=== PATIENT | male | born 1965 | race Caucasian/White ===

== ENCOUNTER 2020-12-19 18:38 | Emergency (ER) | payer BC ==
--- OUTSIDE RECORDS SUMMARY | 2020-12-19 18:59 | XMS REPORT | Continuity of Care Document ---
:[address] [facility] t Address [address] [place] [address] Care Team Providers Name Role Phone Lamont CRAWFORD Primary Care Physician Unavailable SYSTEM, NOT IN Attending Clinician Unavailable Eloy LAINEZ Attending Clinician Unavailable GREG Attending Clinician Unavailable Ilda JIMENEZ Attending Clinician Unavailable Ilda Jimenez MD Attending Clinician DIOGO SALDAÑA Attending Clinician Unavailable Diogo Vera Attending Clinician Peace VILLEGAS Attending Clinician PEACE Attending Clinician Unavailable ARTURO Attending Clinician Unavailable Arturo DPEllyn Attending Clinician MU-ISM Attending Clinician Unavailable Lamont CRAWFORD Attending Clinician Unavailable Lamont Crawford MD Attending Clinician JAYE Attending Clinician Unavailable Jaye TRAVEL PROFESSIONAL Attending Clinician Greg III, [place] Attending Clinician PATRICIA Attending Clinician Unavailable Patricia VILLEGAS Attending Clinician SHREYA Attending Clinician Unavailable Shreya VILLEGAS Attending Clinician Nichole PT Attending Clinician Daniel Mcdonald RN Attending Clinician Unavailable Chris ORR Attending Clinician Unavailable Sandra VILLEGAS Attending Clinician Jerri ORR Attending Clinician Unavailable Eloy Fam Attending Clinician Eloy MURPHY Attending Clinician Unavailable Ignacia ORR R Attending Clinician Unavailable HOYT, A Attending Clinician Unavailable Saritha TRAVEL PROFESSIONAL, A Attending Clinician Freeman VILLEGAS Chi Attending Clinician Oswaldo RN, L Attending Clinician Unavailable Emil RN Attending Clinician Hernandez VILLEGAS Attending Clinician HERNANDEZ Attending Clinician Unavailable Nitin VILLEGAS Attending Clinician Sascha EATON Attending Clinician Ladarius RN, N Attending Clinician Unavailable Ladarius RN Attending Clinician Unavailable Dede PAEZ Attending Clinician Yolette Attending Clinician Unavailable Redd VILLEGAS, J Attending Clinician Allen ORR Attending Clinician Unavailable Jl ORR Attending Clinician Unavailable Amanda ORR, A Attending Clinician Unavailable Ishmael VILLEGAS, A Attending Clinician Artie BRADLEY Attending Clinician Anupam OMALLEY Attending Clinician Unavailable Kuldeep Attending Clinician KULDEEP Attending Clinician Unavailable Eloy Burton Attending Clinician Micheal Attending Clinician Unavailable Bakari Attending Clinician Unavailable Kandi Villegas Attending Clinician Mitch Smith Attending Clinician Pelon Attending Clinician Greg VARGAS, [place] Admitting Clinician HERNANDEZ Admitting Clinician Unavailable Juan Antonio Admitting Clinician Payers Payer Name Policy Type Policy Number Effective Date Expiration Date Luba hernandes BCBS PPO POS OUT [id number] 2013 OF STATE GENERIC 00:00:00 Problems Condition Condition Condition Status Onset Resolution Last Treating Co mments Source Name Details Category Date Date Treatment Clinician Date C79.51 - Diagnosis Active 2020-11-03 M emoria SECONDARY 2-24 01:43:00 l MALIGNANT C79.51 - 00:01: Her sullivan NEOPLASM O SECONDARY 00 MALIGNANT NEOPLASM O Active 10/20/2020 [facility] Diagnosis Active 2020-10-19 M emoria POSTOPERAT 2 10:47:00 l CHRISTAL WOUND DRAINING 00:00: Her sullivan RIGHT HIP POSTOPERAT 00 CHRISTAL WOUND RIGHT HIP Active 10/07/2020 [facility] RT HIP Diagnosis Active 2020-09-27 Mem oria WOUND 1-15 21:57:00 l INFECTION RT HIP 00:00: Lelia nn WOUND 00 INFECTION Active 09/10/2020 [facility] nursing home nursing home Disease Active 2019-08 (current) (current) 0- Griffin rso use of use of 00:00: n antithromb antithromb 00 otics/anti otics/anti platelets platelets 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[facility] neoplasm neoplasm 00:00: n of bone of bone 00 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[place] rso neoplasm neoplasm 00:00: n of of 00 gastrointe gastrointe stinal stinal tract tract Hematochez Hematochez Disease Active Overview : ia ia 01-27 Added Anderso 00:00: automatic n 00 ally from request for surgery [id number] Other Other Disease Active 2018-08 secondary secondary 2-20 [facility] hypertensi hypertensi 00:00: n on on 00 Type 2 Type 2 Disease Active 2018-08 diabetes diabetes 2-20 Gerhard o mellitus mellitus 00:00: n without without 00 complicati complicati on on DRAINING Diagnosis Active 2018-082020-09-10 M emoria POST OP 0 15:46:00 l WOUND DRAINING 00:00: Khang n RIGHT POST OP 00 THIGH WOUND RIGHT THIGH Active 05/27/2019 [facility] Infection Infection Disease Active following following 02-25 [facility] a a 00:00: n procedure, procedure, 00 superficia superficia l l incisional incisional surgical surgical site site Malignant Malignant Disease Active neoplasm neoplasm 02-24 Gerhard o of left of left 00:00: n kidney, kidney, 00 except except renal renal pelvis pelvis Renal cell Renal cell Disease Active M D carcinoma carcinoma 02-19 [facility] rso 00:00: n 00 DRAINING Diagnosis Active 2019-01-10 M emoria POSTOP 5-06 22:15:00 l WOUND DRAINING 00:00: Khang n RIGHT POSTOP 00 THIGH WOUND RIGHT THIGH Active 12/30/2018 [facility] RIGHT Diagnosis Active 2018-12-26 Mem oria THIGH 4-16 22:30:00 l DRAINING RIGHT 00:00: Alexi POST OP THIGH 00 WOUND DRAINING POST OP WOUND Active 12/10/2018 [facility] PATHOLOGIC Diagnosis Active 2018-10-24 Memoria FRACTURE 1- 17:47:00 l NON UNION 00:00: Alexi RIGHT FEMU PATHOLOGIC 00 FRACTURE NON UNION RIGHT FEMU Active 09/26/2018 [facility] Alexi FOLLOW UP Diagnosis Active 2018-12-31 Memoria 1- 13:25:00 l FOLLOW 00:00: Alexi UP 00 Active 9 [facility] LABS FU Diagnosis Active 2018-10-22 Me moria 1-11 09:09:00 l LABS FU 00:00: Alexi 00 Active 09/06/2018 [facility] F/U Diagnosis Active 2017-082018-07-31 Mem oria 2-04 12:02:00 l F/U 00:00: Alexi 00 Active 07/30/2018 [facility] LABS AND Diagnosis Active 2018-07-31 M emoria FOLLOW UP 05-14 10:12:00 l LABS AND 00:00: Khang n FOLLOW UP 00 Active 05/14/2018 [facility] LAB- FU Diagnosis Active 2018-05-14 Me moria 9-06 12:24:00 l LAB- FU 00:00: [place] 00 Active 05/02/2018 [facility] LAB-FU Diagnosis Active 2018-05-14 Mem oria 7-11 09:36:00 l LAB-FU 00:00: Alexi 00 Active 03/06/2018 [facility] CONSULT Diagnosis Active 2017-12-10 Me moria 3-16 14:22:00 l CONSULT 00:00: Alexi 00 Active 11/09/2017 [facility] RENAL CELL Diagnosis Active 2017-12-14 Memoria 3-06 15:17:00 l RENAL 00:00: Alexi CELL 00 Active 10/30/2017 [facility] PATHOLOGIC Diagnosis Active 2017-10-19 Memoria FEMUR FX - 18:32:00 l RIGHT LEG 00:00: [place] PATHOLOGIC 00 FEMUR FX RIGHT LEG Active 10/19/2017 [facility] FEMUR Diagnosis Active 2017-11-13 Mem oria FRACTURE 10-19 10:36:00 l FEMUR 00:00: [place] FRACTURE 00 Active 10/19/2017 [facility] Coronary Coronary Disease Active arterioscl arterioscl 2-19 An derso erosis erosis 00:00: n 00 Acute deep Acute deep Disease Active [place] vein vein 2-19 [facility] thrombosis thrombosis 00:00: st (DVT) of (DVT) of 00 right right lower lower extremity extremity Type 2 Type 2 Disease Active [facility] diabetes diabetes 2-19 Method i mellitus mellitus 00:00: st 00 Essential Essential Disease Active Josefa st[facility] 00 Class 3 Class 3 Disease Active [facility] obesity in [facility] 2-[facility] 00 Hyperlipid Hyperlipid Disease Active [place] emia emia 2-19 Methodi 00:00: st 00 Metabolic Metabolic Disease Active Josefa ston syndrome syndrome 2-19 Method i 00:00: st 00 Hypertensi Hypertensi Disease Active H alexandre ve urgency ve urgency 2-19 Me thodi 00:00: st 00 Acute DVT Acute DVT Disease Active Josefa ston (deep (deep 2-19 [facility] venous venous 00:00: st thrombosis thrombosis 00 ) ) Abnormal Abnormal Disease Active 2015-08 [place] ambulatory ambulatory 09-24 [facility] electrocar electrocar 00:00: st diogram diogram 00 Paresthesi Problem Active 2018-11-28 M emoria a of lower 12:24:48 l extremity Alexi (finding) Paresthesi a of lower extremity (finding) Active Problem 11/28/2018 [facility], [facility], KENJI Truong,[place] [facility] Snoring Problem Active 2018-11-28 Shravan schneider (finding) 12:24:48 l Snoring Alexi (finding) Active Problem 11/28/2018 [facility], [facility],Shravan rial [place] [facility] Swelling Problem Active 2018-11-28 Mem oria of lower 12:24:48 l limb Swelling Khang n (finding) of lower limb (finding) Active Problem 11/28/2018 right leg consistant ly [facility], [facility], KENJI Truong,[facility] Oncology [facility] Taste Problem Active 2018-11-28 Memor ia sense 12:24:48 l altered Taste Gilbert (finding) sense altered (finding) Active Problem 11/28/2018 [facility], [facility], KENJI Truong,[facility] Oncology [facility] Chronic Problem Active 2020-11-05 Shravan jennie kidney 01:27:46 l disease Chronic Khang n stage 2 kidney (disorder) disease stage 2 (disorder) Active Problem 11/05/2020 [facility], [facility],[id number], KENJI Truong, [facility] Diabetes Problem Active 2020-11-05 [facility] oria mellitus 01:27:46 l (disorder) Diabetes He rmann mellitus (disorder) Active Problem 11/05/2020 [facility], [facility],[id number], KENJI Truong,[facility] Oncology [facility] Diabetic Problem Active 2020-11-05 [facility] oria foot ulcer 01:27:46 l (disorder) Diabetic He rmann foot ulcer (disorder) Active Problem 11/05/2020 Left big toe [facility],[id number] Foot pain Problem Active 2020-11-05 [place] (finding) 01:27:46 l Foot Alexi pain (finding) Active Problem 11/05/2020 [facility],[id number] Hypertensi Problem Active 2020-11-05 emoria ve 01:27:46 l disorder, Gilbert systemic Hypertensi arterial ve (disorder) disorder, systemic arterial (disorder) Active Problem 11/05/2020 [facility],[id number], KENJI Truong, KENJI Rodriguez, [facility] Hypothyroi Problem Active 2020-11-05 M emoria dism 01:27:46 l (disorder) Khang n Hypothyroi dism (disorder) Active Problem 11/05/2020 [facility],[id number], KENJI Truong, KENJI Rodriguez, [facility] Past Problem Active 2020-11-05 Memor ia history of 01:27:46 l procedure Past Alexi (context-d history of ependent procedure category) (context-d ependent category) Active Problem 11/05/2020 Placed 12-13-18. [facility],[id number], KENJI Truong, KENJI Rodriguez Wound Problem Active 2020-11-05 Memor ia discharge 01:27:46 l (finding) Wound Khang n discharge (finding) Active Problem 11/05/2020 Right hip-wound vac in place [facility],[id number], KENJI Truong, KENJI Rodriguez UNSP Diagnosis Active 2017-11-13 Mem oria FRACTURE 10:36:00 l OF UNSP UNSP [place] FEMUR, FRACTURE INIT OF UNSP ENCNTR FEMUR, INIT ENCNTR Active [facility] ILLNESS, Diagnosis Active 2020-09-27 M emoria UNSPECIFIE 21:57:00 l D ILLNESS, Khang n UNSPECIFIE D Active [facility] Other Problem 2019-04-03 Memor ia nonspecifi 11:19:09 l c abnormal Other Lelia nn finding of nonspecifi lung field c abnormal finding of lung field 04/03/2019 KENJI Truong, KENJI Rodriguez Acquired Problem 2019-04-03 Mem oria absence of 11:19:09 l kidney Acquired Khang n absence of kidney 04/03/2019 [facility], OPID [place], OPID [place] Malignant Problem 2018-12-30 [place] neoplasm 11:25:56 l of Alexi unspecifie Malignant d part of neoplasm unspecifie of d bronchus unspecifie or lung d part of unspecifie d bronchus or lung 12/30/2018 [facility] Type 2 Problem 2019-02-11 Memor ia diabetes 11:03:39 l mellitus Type 2 Khang n without diabetes complicati mellitus ons without complicati ons 02/11/2019 [facility] Essential Problem 2019-03-19 Me moria (primary) 11:05:01 l hypertensi Khang n on Essential (primary) hypertensi on 03/19/2019 [facility] Atheroscle Problem 2019-03-19 M emoria rotic 11:05:01 l heart Alexi disease of Atheroscle [place]ross rotic coronary heart artery disease of without [place] angina coronary pectoris artery without angina pectoris 03/19/2019 [facility], [facility] [place] Pure Problem 2019-02-11 Memor ia hyperchole 11:03:39 l sterolemia Pure Khang n , hyperchole unspecifie sterolemia d , unspecifie d 02/11/2019 [facility] Presence Problem 2019-02-11 Mem oria of 11:03:39 l coronary Presence Herm deysi angioplast of y implant coronary and graft angioplast y implant and graft 02/11/2019 [facility] nursing home Problem 2018-10-28 [place] mor[place] (current) 12:35:51 l use of Long Alexi aspirin term (current) use of aspirin 10/28/2018 [facility] termite helper Problem 2019-02-11 [place] mor[place] (current) 11:03:39 l use of Long [place] oral term hypoglycem (current) ic drugs use of oral hypoglycem ic drugs 02/11/2019 [facility] Other long Problem 2018-10-28 M emoria term 12:35:51 l (current) Other Khang n drug terminal block assembler therapy (current) drug therapy 10/28/2018 [facility] Acute Problem 2018-02-02 Memor ia posthemorr 11:25:45 l hagic Acute Gilbert anemia posthemorr hagic anemia 02/02/2018 [facility] Type 2 Problem 2018-02-02 Memor ia diabetes 11:25:45 l mellitus Type 2 Khang n with diabetes diabetic mellitus neuropathy with , diabetic unspecifie neuropathy d , unspecifie d 02/02/2018 [facility] Body mass Problem 2018-02-02 [place] index 11:25:45 l (BMI) Body Alexi 40.0-44.9, mass index adult (BMI) 40.0-44.9, adult 02/02/2018 [facility] Morbid Problem 2018-02-02 Memor ia (severe) 11:25:45 l obesity Morbid Alexi due to (severe) excess obesity calories due to excess calories 02/02/2018 [facility] Atelectasi Problem 2019-01-09 M emoria s 11:59:37 l Alexi Atelectasi s 01/09/2019 [facility]i Secondary Problem 2019-03-19 [place] malignant 11:05:01 l neoplasm Gilbert of Secondary unspecifie malignant d site neoplasm of unspecifie d site 03/19/2019 [facility] Hypothyroi Problem 2019-03-19 M emoria dism, 11:05:01 l unspecifie Khang n d Hypothyroi dism, unspecifie d 03/19/2019 [facility] Hypomagnes Problem 2019-03-19 M emoria emia 11:05:01 l Alexi Hypomagnes emia 9 [facility] Diarrhea, Problem 2019-03-19 Me moria unspecifie 11:05:01 l d [place] Diarrhea, unspecifie d 03/19/2019 [facility] Rash and Problem 2019-03-19 Mem oria other 11:05:01 l nonspecifi Rash and He rmann c skin other eruption nonspecifi c skin eruption 03/19/2019 [facility] Shortness Problem 2019-02-11 [place] of breath 11:03:39 l Alexi Shortness of breath 02/11/2019 [facility] Other Problem 2019-02-11 Memor ia specified 11:03:39 l soft Other Gilbert tissue specified disorders soft tissue disorders 02/11/2019 [facility] Weakness Problem 2019-02-11 Mem oria 11:03:39 l Weakness Khang n 02/11/2019 [facility] Illness, Problem 2020-09-18 Mem oria unspecifie 22:40:07 l d Illness, Khang n unspecifie d 09/18/2020 [facility] Hyperchole Problem Resolve 2018-11-28 Memoria sterolemia d 12:24:48 l (disorder) Khang n Hyperchole sterolemia (disorder) Resolved Problem 11/28/2018 [facility], [facility], KENJI Truong,[facility] Oncology [facility] 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 Required revision of femur clarita with cementatio n 09/2018. [facility], [facility],[id number], KENJI Truong, KENJI Rodriguez Asthenia Problem Active 2018-11-28 Mem oria (finding) 12:24:48 l Asthenia Khang n (finding) Active Problem 11/28/2018 [facility], [facility], KENJI Truong,[facility] Oncology [facility] Disorder Problem Active 2018-11-28 Mem oria of hair 12:24:48 l (disorder) Disorder He rmann of hair (disorder) Active Problem 11/28/2018 Pt states his hair color has changes to snow white [facility], [facility], KENJI Truong,[facility] Oncology [facility] Disease of Problem Active 2018-11-28 M emoria skin 12:24:48 l (disorder) Disease Her sullivan of skin (disorder) Active Problem 11/28/2018 Pt states he has light patches in skin [facility], [facility], KENJI Truong,[place] [facility]i Oncology [facility] Dyspnea Problem Active 2018-11-28 Shravan jennie (finding) 12:24:48 l Dyspnea Gilbert (finding) Active Problem 11/28/2018 Pt states with bending over [facility], [facility], KENJI Truong,[place] morial [facility] Fatigue Problem Active 2018-11-28 Shravan jennie (finding) 12:24:48 l Fatigue Gilbert (finding) Active Problem 11/28/2018 [facility], [facility], KENJI Truong,[place] morial Alexi Oncology [facility] Itching Problem Active 2018-11-28 Shravan jennie (finding) 12:24:48 l Itching Alexi (finding) Active Problem 11/28/2018 [facility], [facility], KENJI Truong,[place] morial Alexi Oncology [facility] Observatio Problem Active 2018-11-28 M emoria n of 12:24:48 l sensation Alexi (finding) Observatio n of sensation (finding) Active Problem 11/28/2018 [facility], [facility], KENJI Truong,W[place] moriwv [place] [facility] Osteoarthr Problem Active 2018-11-28 M emoria itis 12:24:48 l (disorder) Khang n Osteoarthr itis (disorder) Active Problem 11/28/2018 [facility], [facility],Shravan rial Alexi Oncology [facility] Pain in Problem Active 2018-11-28 Shravan jennie lower limb 12:24:48 l (finding) Pain in Herm deysi lower limb (finding) Active Problem 11/28/2018 [facility], [facility], KENJI Truong,[place] morial [place] [facility] Paresthesi Problem Active 2018-11-28 M emoria a of hand 12:24:48 l (finding) Alexi Paresthesi a of hand (finding) Active Problem 11/28/2018 [facility], KENJI Truong,[place] morial Alexi Oncology [facility] Pathologic Pathologic Problem Active U nivers al al ity of fracture fracture [place] of right of right Physic i femur due femur due ans to to neoplastic neoplastic disease, disease, initial initial encounter encounter Pathologic Pathologic Problem Active U nivers al al ity of fracture fracture [place] of right of right Physic i femur due femur due ans to to neoplastic neoplastic disease disease with with routine routine healing, healing, subsequent subsequent encounter encounter Postop Postop Problem Active [facility] check check ity of [place] Physici ans Metastatic Metastatic Problem Active U nivers renal cell renal cell it y of carcinoma carcinoma [place] to bone to bone Physici ans Pathol Pathol Problem Active [facility] fracture fracture ity of of right of right [place] femur in femur in Physic i neoplastic neoplastic an s disease disease with with nonunion nonunion Cellulitis Cellulitis Problem Active U nivers of of ity of drainage drainage [place] site, site, Physici post-opera post-opera an s tive tive Draining Draining Problem Active Unive rs postoperat postoperat it y of christal wound[place] initial initial Physici encounter encounter ans Draining Draining Problem Active Unive rs postoperat postoperat it y of christal wound[place] subsequent subsequent Ph ysici encounter encounter ans History of Past Illness Condition Condition Condition Status Onset Resolution Last Treating Co mments Source Name Details Category Date Date Treatment Clinician Date Malignant Problem 2019-04-03 2019-04-03 Memoria neoplasm 09-18 11:19:09 11:19:09 l of 05:53: Alexi unspecifie Malignant 28 d kidney, neoplasm except of renal unspecifie pelvis d kidney, except renal pelvis 09/18/2018 04/03/2019 [facility], KENJI Truong, KENJI Rodriguez Malignant Problem 2017-2019-02-11 2019-02-11 Memoria neoplasm 2- 11:03:39 11:03:39 l of left 04:40: Alexi kidney, Malignant 46 except neoplasm renal of left pelvis kidney, except renal pelvis 07/27/2018 02/11/2019 [facility] Personal Problem 2017-2019-01-09 2019-01-09 Memoria history of 08-28 11:59:37 11:59:37 l other Personal 04:45: Khang n malignant history of 18 neoplasm other of kidney malignant neoplasm of kidney 06/28/2018 01/09/2019 [facility], KENJI Truong Allergies, Adverse Reactions, Alerts Allergy Allergy Status Severity Reaction(s) Onset Inactive Treating Comm ents Source Name Type Date Date Clinician Codeine Propensi Active Other (See 2015-08 Passing Ho nereida ty to Comments) 08 out Methodi adverse 00:00: st reaction 00 s to drug codeine codeine Active Memoria sulfate sulfate l Alexi Plastic Plastic Active Memoria Tape Tape l Alexi NKFA NKFA Active Memoria l [place] Codeine Allergy Active Univers Derivati to drug ity of ves (finding [place] ) Physici ans Family History Family Member Diagnosis Comments Start Date Stop Date Source Natural father Diabetes MD Mali lowe Natural father Hyperlipidemia And laina Natural father Hypertension Jose L son Maternal grandfather Lung cancer MD To Natural mother Diabetes MD [place] low[place] Natural mother Heart disease [place] Paternal grandmother Colon cancer MD To Social History Social Habit Start Date Stop Date Quantity Comments Source History [facility] MD To Alcohol Std Drinks History SDMD MD To Alcohol Binge Sex Assigned At MD [place] on Exposure to Not sure MD To SARS-CoV-2 (event) Tobacco use and 2020-11-24 2020-11-24 Never used MD [place] on exposure 00:00:00 00:00:00 Alcohol intake 2020-11-24 2020-11-24 Lifetime MD Mali lowe 00:00:00 00:00:00 non-drinker (finding) Social History 2020-10-08 2020-10-08 [facility] reyes 15:04:25 15:04:25 History SDOH 2019-02-24 2019-02-24 1 MD To Alcohol Frequency 00:00:00 00:00:00 Smoking Status Start Date Stop Date Source Never smoker MD To Medications Ordered Filled Start Stop Current Ordering Indication Dosage Frequency Signature Comments Components Source Medication Medication Date Date Medication? Clinician (SIG) Name Name ezetimibe Yes 10mg Take 10 mg MD (ZETIA) 10 4-12 by mouth Jose L so mg tablet 20:49: at n 26 bedtime. aspirin 81 Yes 81mg Take 81 mg M D mg EC 4-12 by mouth Anderso tablet 20:49: daily. n 26 cholecalcif Yes 2000U Take 2,000 MD trever, 4-12 Units by Anderso vitamin D3, 20:49: mouth n 2,000 unit 26 twice capsule daily. Bacillus Yes 1{capsu Take 1 MD coagulans 4-12 le} capsule by Griffin fisher (PROBIOTIC, 20:49: mouth n B. 26 daily. COAGULANS,) 10 billion cell cpDR multivit-mi Yes 1{tbl} Take 1 MD ns/iron/fol 4-12 tablet by And erso ic/lycop 20:49: mouth n (CENTRUM 26 daily. MEN ORAL) vit A/vit Yes Take by C/vit 4-12 mouth. Anderso E/zinc/belinda 20:49: n er 26 (PRESERVISI ON AREDS ORAL) ascorbic Yes 1000mg Take 1,000 M D acid, 4-12 mg by Anderso vitamin C, 20:49: mouth n (vitamin C) 26 daily. 1000 mg tablet flash Yes Latrice VILLEGAS glucose 4-12 Veronica 14 Anderso sensor 20:49: Day Sensor n (FreeStyle 26 kit Veronica 14 Day Sensor) kit mirabegron Yes Myrbetriq (Myrbetriq) 4-12 50 mg Anderso 50 mg Tb24 20:49: tablet,ext n 26 ended release meropenem Yes Infuse MD (MERREM 4-12 intravenou Gerhard o INTRAVENOUS 20:49: sly. 3 x n ) 26 daily for at least another month heparin Yes Infuse MD sod,porcine 4-12 intravenou An derso /0.9 % NaCl 20:49: sly. n (HEPARIN 26 FLUSH INTRAVENOUS ) HYDROcodone HYDROcodone Yes VICTORIANO TAKE 1 [facility] -Acetaminop -Acetaminop 4-12 GREG TABLET ity of hen 5-325 hen 5-325 00:00: M.D. EVERY 4 TO [place] MG Oral MG Oral 00 6 HOURS Phy sici Tablet Tablet NEEDED FOR ans PAIN. ondansetron Yes Malignant 8mg Take 1 MD (Zofran) 8 3-18 neoplasm of tablet (8 Anderso mg tablet 00:00: left mg) by n 00 kidney, mouth except every 8 renal (eight) pelvis hours as needed for nausea or vomiting. Aspirin 81 No Notes: Do Me moria MG Enteric 2-24 not crush l Coated 15:00: or chew. Gilbert Tablet 00 (Same As: Ecotrin) Plavix No Notes: Memoria 2-24 (Same As: l 15:00: Plavix) Alexi 00 Vitamin D3 No Notes: Memor ia 2000 intl 2-24 Same as : l units oral 15:00: Vitamin D3 H ermann tablet 00 Cartia XT No 300 mg, 1 Mem oria 2-24 cap, l 15:00: Route: PO, Alexi 00 Drug form: ERCAP, Daily, Dosing Weight 134.545, kg, Start date: 10/20/20 9:00:00 SALOONKEEPER, Duration: 30 day, Stop date: 11/18/20 9:00:00 CDT Thyroxine No Notes: Memori a 2-24 Take 1 l 12:30: hour before or 2 hours after meal; Enteral feeds may interefere with the absorption of this medication . (Same as:Levothr oid) carvedilol No 50 mg, 2 Mem oria 2-24 tab, l 03:00: Route: PO, Drug form: TAB, Q12H, Dosing Weight 134.545, kg, Start date: 10/19/20 21:00:00 SALOONKEEPER, Duration: 30 day, Stop date: 11/18/20 9:00:00 CDT insulin, No 15 unit, Memor ia isophane 2-24 Route: l 03:00: SUB-Q, Q12H, Dosing Weight 134.545, kg, Start date: 10/19/20 21:00:00 SALOONKEEPER, Duration: 30 day, Stop date: 11/18/20 9:00:00 CDT Vitamin C No Notes: Memori a 2-23 (Same as: l 23:00: Vitamin C) Acetaminoph Yes 1 tab, PO, Memoria en 325 MG / 2-23 Q6H, PRN l Hydrocodone 21:42: for pain, H ermann Bitartrate 00 X 6 day, # 10 MG Oral 24 tab, 0 Tablet Refill(s), [[place] called to ] pharmacy ondansetron No Route: IV, Memoria (ANES) 2-23 Drug form: l 20:43: INJ, ONCE, Stop date: 10/19/20 14:43:00 SALOONKEEPER dexamethaso No Route: IV, Memoria ne (ANES) 2-23 Drug form: l 20:43: INJ, ONCE, Stop date: 10/19/20 14:43:00 SALOONKEEPER lidocaine 0 No Route: IV, Me moria (ANES) 2-23 Drug form: l 20:28: INJ, ONCE, Stop date: 10/19/20 14:28:00 SALOONKEEPER propofol 0 No Route: IV, Mem oria (ANES) 2-23 Drug form: l 20:28: INJ, ONCE, Stop date: 10/19/20 14:28:00 SALOONKEEPER succinylcho No Route: IV, Memoria line (ANES) 2- Drug form: l 20:28: INJ, ONCE, Stop date: 10/19/20 14:28:00 SALOONKEEPER midazolam No Route: IV, Me moria (ANES) 2-23 Drug form: l 20:28: SOLN, ONCE, Stop date: 10/19/20 14:28:00 SALOONKEEPER fentaNYL No Route: IV, Mem oria (ANES) 2-23 Drug form: l 20:28: INJ, ONCE, Stop date: 10/19/20 14:28:00 SALOONKEEPER ceFAZolin No Route: IV, Me moria (ANES) 1000 2- Drug form: l mg 19:43: INJ, Start date: 10/19/20 13:43:00 SALOONKEEPER, Stop date: 10/19/20 14:43:00 SALOONKEEPER Lactated No Route: IV, Mem oria Ringers 2-23 Total l Injection 19:29: Volume: Lelia nn IV (ANES) 00 1,000, 1000 mL Start date: 10/19/20 13:29:00 SALOONKEEPER, Stop date: 10/19/20 14:29:00 SALOONKEEPER Insulin 0 No Notes: Memoria regular 2-23 (Same as: l 18:13: Humulin R, Gilbert 00 NovoLIN R) Roll in palms of hands gently; Do not shake vigorously . WASTE: F/P - Black; E - Municipal Trash Bin Stable for 31 days at room temperatur e Expires in days from ____Date Labetalol No 10 mg, 2 Shravan jennie 2-23 mL, Route: l 14:27: IVP, Drug Alexi form: INJ, Q5Min, Dosing Weight 134.545, kg, PRN Elevated BP, Start date: 10/19/20 8:27:00 SALOONKEEPER, Duration: 5 doses or times, Stop date: Limited # of times, 0 Ketorolac Yes 4 days Memor ia 2-23 l 14:27: MEDICATION Gilbert WASTE Product Size: 30 mg Product Wasted: ___ mg Acetaminoph No Notes: Max Memoria en 2-23 acetaminop l 14:27: hen 4000 Alexi 00 mg/day (4 gm/day). (Same as: Tylenol Extra Strength) Oxycodone No Notes: Memori a Hydrochlori 2-23 (Same as: l de 5 MG 14:27: Roxicodone Herm deysi Oral Tablet ) Morphine No Notes: Memoria 2-23 (Same l 14:27: as:MORPhin Gilbert 00 e Sulfate) Hydromorpho No Notes: Shravan jennie ne 2-23 Same as l 14:27: Dilaudid Gilbert Flumazenil No Notes: Memor ia 2-23 (Same as: l 14:27: Romazicon) Alexi Naloxone No Notes: Memoria 2-23 Same as l 14:27: Narcan Gilbert Ondansetron No Notes: Shravan jennie 2-23 (Same as: l 14:27: Zofran) Gilbert MEDICATION WASTE Product Size: 4 mg Product Wasted: ___ mg Promethazin No Notes: Do M emoria e 2-23 not give l 14:27: IV push. Alexi 00 (Same as: Phenergan) Methocarbam No Notes: Shravan jennie ol 2-23 (Same l 14:27: as:Robaxin ) Insulin No Notes: Memoria Lispro 2-23 (Same as: l 14:27: Humalog) Roll in palms of hands gently; Do not shake vigorously . WASTE: F/P - Black; E - Municipal Trash Bin Stable for 28 days at room temperatur e. Expires in days from ____Date Acetaminoph No Notes: Max Memoria en 2-22 acetaminop l 20:47: hen 4000 00 mg/day (4 gm/day). (Same as: Tylenol Extra Strength) pregabalin No Notes: Memor ia 2-22 Same as l 20:47: Lyrica Famotidine No Notes: Memor ia 2-22 (Same as: l 20:47: Pepcid) HYDROcodone Yes Take by -acetaminop 2-22 mouth as Griffin rso hen (NORCO) 00:00: needed. n 5 mg-325 mg 00 per tablet HYDROcodone HYDROcodone Yes VICTORIANO Q6H TAKE 1 TO [facility] -Acetaminop -Acetaminop 2-22 GREG 2 TABLETS ity of hen 5-325 hen 5-325 00:00: M.D. EVERY 6 [place] MG Oral MG Oral 00 HOURS Physi ci Tablet Tablet NEEDED. ans Cefazolin No Notes: Memori a 2-16 (Same As: l 19:00: Ancef, Alexi 00 Kefzol) MEDICATION WASTE Product Size: 1000 mg Product Wasted: ___ mg methenam/so 2020- No Take by MD quintana 2-04 02-04 mouth 3 Anderso phos/mblue/ 17:28: 00:00 (three) n hyoscy 33 :00 times a (UROGESIC-B day. 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 meropenem + No Notes: Shravan jennie Sodium -21 (Same as: l Chloride 15:30: Merrem) . Herm deysi 0.9% IV 100 00 mL meropenem No Notes: Memori a - (Same as: l 14:44: Merrem) . Alexi 00 Santyl No Notes: Memoria 1-20 (Same As: l 21:00: Santyl) Saline No Notes: Memoria Flush 0.9% 09-14 Same as: l 22:00: BD Posiflush Sterile Lidocaine No Notes: Memori a Hydrochlori 09-14 Preservati l de 10 MG/ML 20:00: ve free. He rmann Injectable (Same as: Solution Xylocaine MPF) Hydromorpho No 0.5 mg, Mem oria ne 09-14 Route: l 19:59: IVP, ONCE, Dosing Weight 87.727, kg, PRN Pain Score 7-10, Priority: NOW, Start date: 09/14/20 13:59:00 SALOONKEEPER ondansetron No Route: IV, Memoria (ANES) 09-14 Drug form: l 19:43: INJ, ONCE, Stop date: 09/14/20 13:43:00 SALOONKEEPER Saline No Notes: Memoria Flush 0.9% 09-14 Same as: l 19:15: BD Posiflush Sterile succinylcho No Route: IV, Memoria line (ANES) 09-14 Drug form: l 19:04: INJ, ONCE, Stop date: 09/14/20 13:04:00 SALOONKEEPER midazolam No Route: IV, Me moria (ANES) 09-14 Drug form: l 19:04: SOLN, 00 ONCE, Stop date: 09/14/20 13:04:00 SALOONKEEPER fentaNYL No Route: IV, Mem oria (ANES) 09-14 Drug form: l 19:04: INJ, ONCE, Alexi 00 Stop date: 09/14/20 13:04:00 SALOONKEEPER lidocaine No Route: IV, Me moria (ANES) 09-14 Drug form: l 19:04: INJ, ONCE, Gilbert 00 Stop date: 09/14/20 13:04:00 SALOONKEEPER propofol No Route: IV, Mem oria (ANES) 09-14 Drug form: l 19:04: INJ, ONCE, Gilbert 00 Stop date: 09/14/20 13:04:00 SALOONKEEPER Lactated No Route: IV, Mem oria Ringers 09-14 Total l Injection 18:23: Volume: Lelia nn IV (ANES) 00 1,000, 1000 mL Start date: 09/14/20 12:23:00 SALOONKEEPER, Stop date: 09/14/20 13:23:00 SALOONKEEPER Acetaminoph No Notes: Max Memoria en 09-14 acetaminop l 03:19: hen 4000 Gilbert 00 mg/day (4 gm/day). (Same as: Tylenol Extra Strength) celecoxib No Notes: Memori a 09-14 NSAID. l 03:19: Please Alexi 00 check indication . Not for seizure. (Same As: CeleBREX) pregabalin No Notes: Memor ia 09-14 (Same as: l 03:19: Lyrica) Alexi 00 Oxycodone No Notes: Do Mem oria 09-14 not crush l 03:19: or chew. Gilbert 00 (Same as: OxyContin) cefepime + No Notes: Memor ia Sodium 09-13 (Same As: l Chloride 17:30: Maxipime) Herm deysi 0.9% IV 100 00 mL MEDICATION WASTE Product Size: 1000 mg Product Wasted: ___ mg Aspirin 325 No Notes: Shravan jennie MG Oral 18 Take with l Tablet 15:00: food. Gilbert 00 normal No 500 mL, Memoria saline 0.9% 18 Rate: 10 l IV 500 mL 01:08: ml/hr, Khang n 00 Infuse over: 50 hr, Route: IV, Dosing Weight 87.727 kg, Total Volume: 500, Start date: 09/12/20 19:08:00 SALOONKEEPER, Duration: 30 day, Stop date: 10/12/20 19:07:00 SALOONKEEPER, 2.11, m2, 0 Humulin-R U 2021-0 No Humulin-R M emoria 500 1-17 U 500, 15 l 18:04: units, Alexi 00 Route: SUB-Q, ONCE, 09/12/20 12:04:00 SALOONKEEPER, Stop date: 09/12/20 12:04:00 SALOONKEEPER, 0 vancomycin 2020-0 No 2000 mg: Me moria + Sodium 1-17 infuse l Chloride 15:00: over 2.5 Lelia nn 0.9% IV 250 00 hours For mL adult patients only: Round to nearest 250 mg per Medical Staff approval MEDICATION WASTE Product Size: 1000 mg Product Wasted: ___ mg Vancomycin 2020-0 No 2000 mg: Me moria 1-17 infuse l 14:00: over 2.5 Gilbert 00 hours For adult patients only: Round to nearest 250 mg per Medical Staff approval MEDICATION WASTE Product Size: 1000 mg Product Wasted: ___ mg Tenex 2020-0 No 2 mg, 1 Memoria 1-16 tab, l 23:00: Route: PO, Alexi 00 Drug form: TAB, BID, Dosing Weight 87.727, kg, Start date: 09/11/20 17:00:00 SALOONKEEPER, Duration: 30 day, Stop date: 10/11/20 9:00:00 SALOONKEEPER GUANFACINE 2020-0 No GUANFACINE M emoria 2 MG ORAL 1-16 2 MG ORAL l TABLET 23:00: TABLET, 2 Khang n 00 mg, Drug form: MISC, Route: PO, BID, 09/11/20 17:00:00 SALOONKEEPER, Duration: 30 day, Stop date: 10/11/20 9:00:00 SALOONKEEPER, 0 Humulin R 2021-0 No Humulin R Mem oria U-500 1-16 U-500, 50 l 18:00: Units, Alexi 00 Route: SUB-Q, Daily, 09/11/20 12:00:00 SALOONKEEPER, Duration: 30 day, Stop date: 10/11/20 9:00:00 SALOONKEEPER, 0 Guanfacine Yes 2 mg = 1 Mem oria 2 MG Oral 1-16 tab, PO, l Tablet 15:07: BID, 0 Gilbert [Tenex] 00 Refill(s) Hydralazine Yes 75 mg, PO, Memoria 1-16 TID, 0 l 15:03: Refill(s) Gilbert 00 Cabometyx No Notes: Memori a 40 mg oral 1-16 Antineopla l tablet 15:00: sticUse Khang n 00 Hazardous Drug precaution s Cartia XT No Notes: Memori a 1-16 (Same as: l 15:00: Cardizem Alexi 00 CD) Do Not Crush Before meals. ezetimibe No Notes: Memori a 1-16 (Same as: l 15:00: Zetia) Gilbert 00 Furosemide No Notes: Memor ia 20 MG Oral 1-16 (Same as: l Tablet 15:00: Lasix) Alexi [Lasix] 00 May cause GI upset. Give with food or milk. Hydrochloro No Notes: Shravan jennie thiazide 1-16 (Same as: l 15:00: Hydrodiuri Gilbert 00 l) With food. Vascepa 1 g No Vascepa 1 M emoria oral 1-16 g oral l capsule 15:00: capsule, 2 Herm deysi 00 gm, Route: PO, Daily, 09/11/20 9:00:00 SALOONKEEPER, Duration: 30 day, Stop date: 10/10/20 9:00:00 SALOONKEEPER, 0 Cardizem CD No Notes: Shravan jennie 1-16 (Same as: l 15:00: Cardizem Gilbert 00 CD) Do Not Crush Before meals. Vancomycin No 2001 mg: Me moria 1-16 infuse l 14:00: over 2.5 Gilbert 00 hours For adult patients only: Round to nearest 250 mg per Medical Staff approval MEDICATION WASTE Product Size: 1000 mg Product Wasted: ___ mg Thyroxine No Notes: Memori a 1-16 Take 1 l 12:30: hour Gilbert 00 before or 2 hours after meal; Enteral feeds may interefere with the absorption of this medication . (Same as:Levothr oid) Vancomycin No 1 gm, Memori a 1-16 Route: IV, l 08:00: Q8H, Gilbert 00 Dosing Weight 87.727, kg, Start date: 09/11/20 2:00:00 SALOONKEEPER, Duration: 30 day, Stop date: 10/11/20 0:00:00 SALOONKEEPER, ABX Indication : Skin/Soft Tissue Infection Hydralazine No Notes: Shravan jennie 1-16 (Same as: l 05:22: Apresoline Alexi 00 ) May interfere w/enteral feedings Take With Food. metroNIDAZO No Notes: Shravan jennie LE 1-16 (Same as: l 04:30: Flagyl) Gilbert 00 Avoid alcohol. cefepime + No Notes: Memor ia Sodium 1-16 (Same As: l Chloride 04:00: Maxipime) Herm deysi 0.9% IV 100 00 mL MEDICATION WASTE Product Size: 1000 mg Product Wasted: ___ mg carvedilol No Notes: Memor ia 1-16 Give with l 03:00: food. Gilbert 00 (Same As: Coreg) Docusate No Notes: Memoria 1-16 (Same as: l 02:00: Colace) Gilbert 00 (Do Not Crush) Hydralazine No Notes: Shravan jennie Hydrochlori 1-16 (Same as: l de 50 MG 02:00: Apresoline Her sullivan Oral Tablet 00 ) May interfere w/enteral feedings Take With Food. vancomycin No 2001 mg: Me moria 1-16 infuse l 02:00: over 2.5 Alexi 00 hours Metronidazo No Notes: Shravan jennie le 1-16 (Same as: l 00:30: Flagyl) Alexi 00 Avoid alcohol. cefepime No Notes: Memoria 1-16 (Same As: l 00:00: Maxipime) Gilbert 00 MEDICATION WASTE Product Size: 1000 mg Product Wasted: ___ mg Vancomycin No 2000 mg: Me moria 1-15 infuse l 23:55: over 2.5 Gilbert 00 hours Oxycodone No Notes: Memori a Hydrochlori 1-15 (Same as: l de 5 MG 22:43: Roxicodone Herm deysi Oral Tablet 00 ) Tramadol No Notes: Not Mem oria 1-15 to exceed l 22:43: 400mg/day. Gilbert 00 (Same As: Ultram) Dextrose No 12.5 gm, Memor ia 50% Syringe 1-15 25 mL, l (D50W) 22:42: Route: Alexi 00 IVP, Drug Form: INJ, Dosing Weight 87.727, kg, PRN, PRN Blood Glucose Results, Start date: 09/10/20 16:42:00 SALOONKEEPER, Duration: 30 day, Stop date: 10/10/20 16:41:00 SALOONKEEPER, 0 Glucagon No 1 mg, Memoria 15 Route: IM, l 22:42: Drug form: Alexi 00 PDR/INJ, PRN, Dosing Weight 87.727, kg, PRN Blood Glucose Results, Start date: 09/10/20 16:42:00 SALOONKEEPER, Duration: 30 day, Stop date: 10/10/20 16:41:00 SALOONKEEPER, 0 Insulin No Notes: Memoria Lispro 1-15 (Same as: l 22:42: Humalog) Roll in palms of hands gently; Do not shake vigorously . WASTE: F/P - Black; E - Municipal Trash Bin Stable for 28 days at room temperatur e. Expires in days from ____Date cabozantini Yes 40 mg = 1 M emoria b 40 MG 1-15 tab, PO, l Oral Tablet 22:23: Daily, 0 He rmann [Cabometyx] 00 Refill(s) Furosemide Yes 20 mg = 1 Me moria 20 MG Oral 1-15 tab, PO, l Tablet 22:23: Daily, # Gilbert [Lasix] 00 30 tab, 0 Refill(s) Hydralazine No 50 mg = 1 M emoria Hydrochlori 1-15 tab, PO, l de 50 MG 22:23: TID, # 90 Herm deysi Oral Tablet 00 tab, 3 Refill(s) Hydrochloro No 12.5 mg, Me moria thiazide 1-15 PO, Daily, l 22:23: 0 Gilbert 00 Refill(s) levothyroxi Yes 125 Memori a ne 125 mcg 1-15 microgram l (0.125 mg) 22:23: = 1 tab, Her sullivan oral tablet 00 PO, Daily, # 30 tab, 0 Refill(s) Sulfamethox Yes PO, Q12H, M emoria azole 800 1-15 0 l MG / 22:23: Refill(s) Alexi Trimethopri 00 m 160 MG Oral Tablet [Bactrim] furosemide 2019-08 Generalized 20mg Take 1 MD (Lasix) 20 2-15 03-18 edema tablet (20 A nderso mg tablet 00:00: 00:00 mg) by n 00 :00 mouth daily as needed for edema (edema). 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 suspension renal pelvis carvedilol 2019-08 Yes 50mg 50 mg MD (COREG) 25 0-12 twice Anderso mg tablet 00:00: daily. n 00 Takes 50 mg twice a day sodium 2019-08 No Hyperkalemi 15g Take 60 mL MD polystyrene 0-01 10-02 a (15 g) by An derso (KAYEXALATE 00:00: 04:59 mouth once n ) 15 g/60 00 :00 for 1 mL dose. suspension sulfamethox 2019- No sulfametho MD azole-trime 9-10 08-21 xazole 800 A nderso thoprim 02:15: 00:00 mg-trimeth n (BACTRIM 22 :00 oprim 160 DS) 800 mg tablet mg-160 mg per tablet collagenase 2019- No Santyl 250 MD (Santyl) 05-0618 unit/gram Jose L so ointment 02:15: 00:00 topical n 22 :00 ointment mirabegron 2019- No 25mg Take 25 mg MD (Myrbetriq) 05-06 by mouth And erso 25 mg 02:15: 00:00 daily. n 21 :00 axitinib 2019- No Inlyta 1 MD (Inlyta) 1 05-06 08-06 mg tablet And erso mg tablet 02:15: 00:00 n 21 :00 levothyroxi Yes Other 125ug Take 1 MD ne 04-16 specified tablet Anderso (SYNTHROID, 00:00: hypothyroid (125 mcg) n LEVOTHROID) 00 ism by mouth 125 mcg daily. 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 pelvis Myrbetriq 2019- No MD 50 mg Tb24 03-11 Anderso 00:00: 00:00 n 00 :00 Sulfamethox Sulfamethox Yes ROCK TAKE ONE [facility] azole-Trime azole-Trime 7-15 MU-ISM TABLET BY brie of thoprim thoprim 00:00: PA-C MOUTH [place] 800-160 MG 800-160 MG 00 EVERY 12 Physici Oral Tablet Oral Tablet HOURS ans sulfamethox 2020- No Take by azole-trime 7-15 02-04 mouth. 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 pelvis Urogesic-Bl 2020- No ue 7 08-21 Anderso 81.6-40.8-0 00:00: 00:00 n .12 mg tab 00 :00 collagenase Yes Non-pressur Apply MD Mcrae) 02-24 e chronic topically A nderso ointment 00:00: ulcer of to n 00 other part affected of left area(s) foot with daily. fat layer Apply with exposed saline moistened gauze to ulcer on the left great toe daily peg 2019- No Hematochezi Use as 3350-electr 6 06-27 a directed And erso olytes 00:00: 04:59 by n (Golytely) 00 :00 ordering [id number] provider. 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 renal pelvis levothyroxi 2019- No Other 100ug Take 1 M D ne 5-15 08- specified tablet Anderso (Synthroid) 00:00: 00:00 hypothyroid (100 mcg) n 100 mcg 00 :00 ism by mouth tablet daily. ciprofloxac 2019- No Dysuria 500mg Take 1 MD in HCl 5-15 05-23 tablet Anderso (CIPRO) 500 00:00: 04:59 (500 mg) n mg tablet 00 :00 by mouth twice daily for 7 days. ciprofloxac 2019- No Dysuria 500mg Take 1 MD in HCl 5-08 05-15 tablet Anderso (CIPRO) 500 00:00: 00:00 (500 mg) n mg tablet 00 :00 by mouth twice daily for 7 days. 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 renal pelvis ondansetron 2019-2020- No Malignant 8mg Take 1 MD (Zofran) 8 - 03-18 neoplasm of tablet (8 Anderso mg tablet 00:00: 00:00 left mg) by n 00 :00 kidney, mouth except every 8 renal (eight) pelvis hours as needed for nausea or vomiting. hydrALAZINE Yes 50mg 50 mg 3 MD (APRESOLINE 2-05 (three) Jose L so ) 50 mg 00:00: times a n tablet 00 day. Sulfamethox Sulfamethox 2019-0 Yes ROCK QD TAKE 1 [facility] azole-Trime azole-Trime 1-29 MU-ISM TABLET ity of 00:00: PA-C DAILY [place] 800-160 MG 800-160 MG 00 Phy sici Oral Tablet Oral Tablet a ns nystatin 2019- Yes Rash of Apply MD (MYCOSTATIN 1-17 groin topically An derso ) 100,000 00:00: to n units/g 00 affected powder area(s) 3 (three) times a day. levothyroxi 2019-0 2020- No Other 100ug Take 1 M D ne 1-17 05-15 specified tablet Anderso (SYNTHROID) 00:00: 00:00 hypothyroid (100 mcg) n 100 mcg 00 :00 ism by mouth tablet daily. amoxicillin 2019-2019- No twice MD -clavulanat 09-02 08-18 daily. 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 pelvis triamcinolo 2018-08 Yes Allergy to Apply MD waggoner 09-03 drug topically Anderso (KENALOG) 00:00: to n 0.1% cream 00 affected area(s) twice daily. Cartia XT 2018-08 No Notes: Memori a 0-11 (Same as: l 14:00: Cardizem Alexi 00 CD) Before meals. DO NOT CRUSH. Vancomycin 2018-08 No 2001 mg: Me moria 0-11 infuse l 03:00: over 2.5 Alexi 00 hours For adult patients only: Round to nearest 250 mg per Medical Staff approval MEDICATION WASTE Product Size: 1000 mg Product Wasted: ___ mg Zosyn 2018-08 No Notes: Memoria 0-10 Same as: l 21:00: Zosyn Alexi 00 Dosing based on Piperacill in component Zosyn + 2018-08 No Notes: Memoria Sodium 0-10 (Same as: l Chloride 21:00: Zosyn) Alexi 0.9% IV 100 00 Dosing mL based on Piperacill in component MEDICATION WASTE Product Size: 4500 mg Product Wasted: ___ mg Zosyn 2018-08 No Notes: Memoria 0-10 (Same as: l 06:00: Zosyn) Gilbert 00 Dosing based on Piperacill in component MEDICATION WASTE Product Size: 3375 mg Product Wasted: ___ mg POLYETHYLEN 2018-08 No Notes: Shravan jennie E GLYCOL 0-09 Dissolve l 3350 14:00: in 8 oz of Alexi 00 water or juice. (Same as: Miralax) ezetimibe 2018-08 No Notes: Memori a 0-09 (Same as: l 14:00: Zetia) Alexi 00 Saline 2018-08 No Notes: Memoria Flush 0.9% 0-09 Same as: l 13:00: BD Alexi 00 Posiflush Sterile Synthroid 2018-08 No Notes: Memori a 0-09 Take 1 l 11:30: hour Gilbert 00 before or 2 hours after meal; Enteral feeds may interefere with the absorption of this medication . (Same as:Synthro id, Levothroid ) Lidocaine 2018-08 No 5 mL, Memoria Hydrochlori 0-09 Route: l de 10 MG/ML 06:00: INTRADERM, Alexi Injectable 00 Dosing Solution Weight 134.636, kg, ONCALL, For PICC line insertion. , Start date: 06/04/19 1:00:00 CDT, Duration: 30 day, Stop date: 07/03/19 23:59:00 SALOONKEEPER Saline 2018-08 No Notes: Memoria Flush 0.9% 0-09 Same as: l 05:31: BD Gilbert 00 Posiflush Sterile Vancomycin 2018-08 No 2000 mg: Me moria 0-09 infuse l 03:00: over 2.5 Alexi 00 hours For adult patients only: Round to nearest 250 mg per Medical Staff approval [facility], 2018-08 No Notes: Shravan jennie PENITENTIARY 0-09 (Same as: l 02:00: Senokot) Gilbert 00 cefepime 2018-08 No Notes: Memoria 0-09 (Same as: l 02:00: Maxipime) Alexi 00 MEDICATION WASTE Product Size: 2000 mg Product Wasted: ___ mg carvedilol 2018-08 No Notes: Memor ia 0-09 Give with l 02:00: food. Alexi 00 (Same As: Coreg) Humulin R 2018-08 No Humulin R Mem oria U-500 0-09 U-500 l kwikPen 01:28: kwKhang Rodriguez n 00 see debbie ns, Drug form: MISC, Route: SUB-Q, QID-Before Meals, PRN Blood Glucose Results, 06/03/19 20:28:00 CDT, Duration: 30 day, Stop date: 07/03/19 20:27:00 SALOONKEEPER, 0 Acetaminoph 2018-08 No Notes: Max Memoria en 0-08 acetaminop l 23:00: hen 4000 Gilbert 00 mg/day (4 gm/day). (Same as: Tylenol Extra Strength) gabapentin 2018-08 No Notes: Memor ia 0-08 (Same as: l 23:00: Neurontin) Gilbert Docusate 2018-08 No Notes: Memoria 0-08 (Same as: l 23:00: Colace) Gilbert (Do Not Crush) Saline 2018-08 No Notes: Memoria Flush 0.9% 0-08 Same as: l 21:00: BD Posiflush Sterile Tramadol 2018-08 No Notes: Not Mem oria 0-08 to exceed l 19:10: 400mg/day. Alexi (Same As: Ultram) Oxycodone 2018-08 No Notes: Memori a Hydrochlori 0-08 (Same as: l de 5 MG 19:10: Roxicodone Herm deysi Oral Tablet ) Bisacodyl 2018-08 No Notes: Memori a 0-08 (Same As: l 19:10: Dulcolax, Alexi Bisco-Lax) Methocarbam 2018-08 No Notes: Shravan jennie ol 0-08 (Same l 19:10: as:Robaxin Gilbert 00 ) Diphenhydra 2018-08 No Notes: Shravan jennie mine 0-08 (Same as: l 19:10: Benadryl) Alexi 00 ropivacaine 2018-08 No 100 ml/hr, Memoria 0.5% 246.25 0-08 Route: l mg + 19:00: intra-AMBER EPINEPHrine 00 CULAR, 0.5 mg + ONCALL, ketOROLAC Start 30 mg/mL date: injectable 06/03/19 solution 30 14:00:00 mg + cl CDT, Stop date: 06/03/19 20:00:00 CDT, 0 Lidocaine 2018-08 No Notes: Memori a Hydrochlori 0-08 Preservati l de 10 MG/ML 19:00: ve free. He rmann Injectable (Same as: Solution Xylocaine MPF) Saline 2018-08 No Notes: Memoria Flush 0.9% 0-08 Same as: l 18:24: BD Gilbert 00 Posiflush Sterile lidocaine 2018-08 No Route: IV, Me moria (ANES) 0-08 Drug form: l 18:21: INJ, ONCE, Alexi 00 Stop date: 06/03/19 13:21:00 CDT propofol 2018-08 No Route: IV, Mem oria (ANES) 0-08 Drug form: l 18:21: INJ, ONCE, Stop date: 06/03/19 13:21:00 CDT ePHEDrine 2018-08 No Route: IV, Me moria (ANES) 0-08 Drug form: l 18:21: INJ, ONCE, Stop date: 06/03/19 13:21:00 CDT ondansetron 2018-08 No Route: IV, Memoria (ANES) 0-08 Drug form: l 18:21: INJ, ONCE, Stop date: 06/03/19 13:21:00 CDT neostigmine 2018-08 No Route: IV, Memoria (ANES) 0-08 Drug form: l 18:21: INJ, ONCE, Stop date: 06/03/19 13:21:00 CDT midazolam 2018-08 No Route: IV, Me moria (ANES) 0-08 Drug form: l 18:16: SOLN, ONCE, Stop date: 06/03/19 13:16:00 CDT fentaNYL 2018-08 No Route: IV, Mem oria (ANES) 0-08 Drug form: l 18:16: INJ, ONCE, Stop date: 06/03/19 13:16:00 CDT dexamethaso 2018-08 No Route: IV, Memoria ne (ANES) 0-08 Drug form: l 18:16: INJ, ONCE, Stop date: 06/03/19 13:16:00 CDT glycopyrrol 2018-08 No Route: IV, Memoria ate (ANES) 0-08 Drug form: l 18:16: INJ, ONCE, Stop date: 06/03/19 13:16:00 CDT rocuronium 2018-08 No Route: IV, M emoria (ANES) 0-08 Drug form: l 18:06: INJ, ONCE, Stop date: 06/03/19 13:06:00 CDT ceFAZolin 2018-08 No Route: IV, Me moria (ANES) 1000 0-08 Drug form: l mg 17:34: INJ, Start Alexi 00 date: 06/03/19 12:34:00 CDT, Stop date: 06/03/19 13:34:00 CDT Lactated 2018-08 No Route: IV, Mem oria Ringers 0-08 Total l Injection 17:30: Volume: Lelia nn IV (ANES) 00 1,000, 1000 mL Start date: 06/03/19 12:30:00 CDT, Stop date: 06/03/19 13:30:00 CDT Lactated 2018-08 No 1,000 mL, Shravan jennie Ringers IV 0-08 Rate: 40 l 1,000 mL 17:04: ml/hr, Gilbert 00 Infuse over: 25 hr, Route: IV, Dosing Weight 134.636 kg, Total Volume: 1,000, Start date: 06/03/19 12:04:00 CDT, Duration: 30 day, Stop date: 07/03/19 12:03:00 SALOONKEEPER, 2.64, m2, 0 ceFAZolin + 2018-08 No Notes: Shravan jennie Sodium 0-08 (Same As: l Chloride 16:00: Ancef, Gilbert 0.9% IV 100 00 Kefzol) mL MEDICATION WASTE Product Size: 1000 mg Product Wasted: ___ mg Oxycodone 2018-08 No Notes: Memori a Hydrochlori 0-08 (Same as: l de 5 MG 15:45: Roxicodone Herm deysi Oral Tablet 00 ) Hydromorpho 2018-08 No Notes: Shravan jennie ne 0-08 Same as l 15:45: Dilaudid Gilbert 00 Flumazenil 2018-08 No Notes: Memor ia 0-08 (Same as: l 15:45: Romazicon) Gilbert Naloxone 2018-08 No Notes: Memoria 0-08 Same as l 15:45: Narcan Alexi Ondansetron 2018-08 No Notes: Shravan jennie 0-08 (Same as: l 15:45: Zofran) Alexi MEDICATION WASTE Product Size: 4 mg Product Wasted: ___ mg Regular 2018-08 No Notes: Memoria Insulin, 0-08 (Same as: l Human 500 15:22: Humulin R) He rmann UNT/ML 00 Roll in Injectable palms of Solution hands [Humulin R] gently; Do not shake vigorously . WASTE: F/P - Black; E - Municipal Trash Bin Stable for 31 days at room temperatur e Expires in days from ____Date Cefazolin 2018-08 No 2 gm, Memoria 0-08 Route: l 14:00: IVP, Alexi 00 ONCALL, Dosing Weight 134.636, kg, (Patients weighing < 120 kg), Start date: 06/03/19 9:00:00 CDT, Duration: 1 doses or times, ABX Indication : Surgical Prophylaxi s Vancomycin 2018-08 No 2000 mg: Me moria 0-08 infuse l 14:00: over 2.5 Gilbert 00 hours For adult patients only: Round to nearest 250 mg per Medical Staff approval MEDICATION WASTE Product Size: 1000 mg Product Wasted: ___ mg Ancef 2018-08 No 2 gm, Memoria 0-08 Route: l 12:30: IVPB, Alexi 00 ONCE, Dosing Weight 134.636, kg, Start date: 06/03/19 7:30:00 CDT, Stop date: 06/03/19 7:30:00 CDT, Surgical Prophylaxi s Only; For patients < 120 kg, ABX Indication : Surgical Prophylaxi s ferrous Yes 325 mg = 1 Shravan jennie sulfate 325 9-28 tab, PO, l mg oral 15:53: BID, give Lelia nn enteric 00 with coated orange tablet juice, # 28 tab, 1 Refill(s), Pharmacy: [facility] [id number] tramadol Yes 50 mg = 1 Hsravan jennie hydrochlori 9-27 tab, PO, l de 50 MG 19:51: Q6H, PRN Lelia nn Oral Tablet 00 Pain Score 4-6, # 40 tab, 0 Refill(s) Oxycodone 2018- Yes 10 mg = 2 Mem oria Hydrochlori 9-27 tab, PO, l de 5 MG 19:51: Q4H, PRN Khang n Oral Tablet 00 Pain Score 7-10, 0 Refill(s) ciprofloxac 2018- Yes 500 mg = 1 Memoria in 500 mg 9-27 tab, PO, l oral tablet 19:51: Q12H, X 10 Alexi 00 day, # 20 tab, 0 Refill(s) Acetaminoph Yes 1,000 mg = Memoria en 500 MG 05-23 2 tab, PO, l Oral Tablet 19:51: Q6Hnow, # H ermann 00 50 tab, 0 Refill(s) POLYETHYLEN No Notes: Shravan jennie E GLYCOL 05-23 Dissolve l 3350 14:00: in 8 oz of Alexi 00 water or juice. (Same as: Miralax) Aspirin 81 No Notes: Do Me moria MG Enteric 05-23 not crush l Coated 14:00: or chew. Gilbert Tablet 00 (Same As: Ecotrin) Cartia XT No Notes: Memori a 05-23 (Same as: l 14:00: Cardizem Alexi 00 CD) Before meals. DO NOT CRUSH. Regular No Notes: Memoria Insulin, 05-23 (Same as: l Human 500 14:00: Humulin R) He rmann UNT/ML 00 Roll in Injectable palms of Solution hands [Humulin R] gently; Do not shake vigorously . WASTE: F/P - Black; E - Municipal Trash Bin Stable for 31 days at room temperatur e Expires in days from ____Date Metformin No Notes: Memori a hydrochlori 05-23 (Same as: l de 500 MG 14:00: Glucophage He rmann Oral Tablet 00 ) Take with meal Synthroid No Notes: Memori a 05-23 Take 1 l 11:30: hour Gilbert 00 before or 2 hours after meal; Enteral feeds may interefere with the absorption of this medication . (Same as:Synthro id, Levothroid ) Lovenox No Notes: Memoria 05-23 (Same as: l 05:00: Lovenox) Gilbert 00 insulin No Notes: Memoria regular 100 05-23 (Same as: l units/mL 02:30: Humulin R) Her sullivan human 00 Roll in recombinant palms of hands gently; Do not shake vigorously . WASTE: F/P - Black; E - Municipal Trash Bin Stable for 31 days at room temperatur e Expires in days from ____Date Cefazolin No Notes: Memori a 05-23 Same as: l 02:00: Ancef gabapentin No Notes: Memor ia 05-23 (Same as: l 02:00: Neurontin) Docusate No Notes: Memoria 05-23 (Same as: l 02:00: Colace) (Do Not Crush) sennosides, No Notes: Shravan jennie [facility] 05-23 (Same as: l 02:00: Senokot) carvedilol No Notes: Memor ia 05-23 Give with l 02:00: food. (Same As: Coreg) Dextrose No 12.5 gm, Memor ia 50% Syringe 05-22 25 mL, l 23:22: Route: IVP, Drug Form: INJ, Dosing Weight 134.091, kg, PRN, PRN Blood Glucose Results, Start date: 05/22/19 18:22:00 CDT, Duration: 30 day, Stop date: 06/21/19 18:21:00 CDT, 0 Glucagon No 1 mg, Memoria 05-22 Route: IM, l 23:22: Drug form: PDR/INJ, PRN, Dosing Weight 134.091, kg, PRN Blood Glucose Results, Start date: 05/22/19 18:22:00 CDT, Duration: 30 day, Stop date: 06/21/19 18:21:00 CDT, 0 Insulin No Notes: Memoria Lispro 05-22 (Same as: l 23:22: Humalog) Roll in palms of hands gently; Do not shake vigorously . WASTE: F/P - Black; E - Municipal Trash Bin Stable for 28 days at room temperatur e. Expires in days from ____Date Acetaminoph No Notes: Max Memoria en 05-22 acetaminop l 23:00: hen 4000 Alexi 00 mg/day (4 gm/day). (Same as: Tylenol Extra Strength) LR IV 1,000 No 1,000 mL, M emoria mL 05-22 Rate: 125 l 22:24: ml/hr, Infuse over: 8 hr, Route: IV, Dosing Weight 134.091 kg, Total Volume: 1,000, Start date: 05/22/19 17:24:00 CDT, Duration: 30 day, Stop date: 06/21/19 17:23:00 CDT, 2.61, m2, 0 influenza No Notes: Memori a virus 05-22 (Same as: l vaccine, 21:27: Fluzone Khang n inactivated 46 Quadrivale nt, Fluarix Quadrivale nt) For 3 years of age and older (0.5 mL IM) Shake well before use fentaNYL No Route: IV, Mem oria (ANES) 05-22 Drug form: l 19:49: INJ, ONCE, Stop date: 05/22/19 14:49:00 CDT Acetaminoph No Notes: Max Memoria en 05-22 acetaminop l 19:39: hen 4000 Alexi 00 mg/day (4 gm/day). (Same as: Tylenol Extra Strength) Oxycodone No Notes: Memori a 05-22 (Same as: l 19:39: 'Roxicodon e) Hydromorpho No Notes: Shravan jennie ne 05-22 Same as l 19:39: Dilaudid Flumazenil No Notes: Memor ia 05-22 (Same as: l 19:39: Romazicon) Naloxone No Notes: Memoria 05-22 Same as l 19:39: Narcan Ondansetron No Notes: Shravan jennie 05-22 (Same as: l 19:39: Zofran) MEDICATION WASTE Product Size: 4 mg Product Wasted: ___ mg ondansetron No Route: IV, Memoria (ANES) 05-22 Drug form: l 19:33: INJ, ONCE, Stop date: 05/22/19 14:33:00 CDT Tramadol No Notes: Not Mem oria 05-22 to exceed l 19:31: 400mg/day. (Same As: Ultram) Oxycodone No Notes: Memori a Hydrochlori 05-22 (Same as: l de 5 MG 19:31: Roxicodone Herm deysi Oral Tablet ) Ondansetron No Notes: Shravan jennie 05-22 (Same as: l 19:31: Zofran) MEDICATION WASTE Product Size: 4 mg Product Wasted: ___ mg Diphenhydra No Notes: Shravan jennie mine 05-22 (Same as: l 19:31: Benadryl) ceFAZolin No Route: IV, Me moria (ANES) 05-22 Drug form: l 18:59: INJ, ONCE, Stop date: 05/22/19 13:59:00 CDT midazolam No Route: IV, Me moria (ANES) 05-22 Drug form: l 18:54: SOLN, ONCE, Stop date: 05/22/19 13:54:00 CDT fentaNYL No Route: IV, Mem oria (ANES) 05-22 Drug form: l 18:54: INJ, ONCE, Stop date: 05/22/19 13:54:00 CDT lidocaine No Route: IV, Me moria (ANES) 05-22 Drug form: l 18:54: INJ, ONCE, Stop date: 05/22/19 13:54:00 CDT propofol No Route: IV, Mem oria (ANES) 05-22 Drug form: l 18:54: INJ, ONCE, Stop date: 05/22/19 13:54:00 CDT succinylcho No Route: IV, Memoria line (ANES) 05-22 Drug form: l 18:54: INJ, ONCE, Stop date: 05/22/19 13:54:00 CDT Lactated No Route: IV, Mem oria Ringers 05-22 Total l Injection 17:58: Volume: Lelia nn IV (ANES) 00 1,000, 1000 mL Start date: 05/22/19 12:58:00 CDT, Stop date: 05/22/19 13:58:00 CDT nivolumab 2019-0 Yes IV, q3wk, Mem oria 26 0 l 16:42: Refill(s) Gilbert 00 Sulfamethox 2019-0 Yes 1 tab, PO, Memoria azole 800 9-25 Q12H, # 20 l MG / 16:40: tab, 0 Gilbert Trimethopri 00 Refill(s) m 160 MG Oral Tablet minocycline Yes 100 mg = 1 Memoria 100 mg oral 9-25 tab, PO, l tablet 16:40: Q12H, # 10 Lelia nn 00 tab, 0 Refill(s) cephalexin 2018- Yes 500 mg = 1 M emoria 500 mg oral 9-25 tab, PO, l tablet 16:39: QID, # 40 Khang n 00 tab, 0 Refill(s) icosapent Yes 2 gm = 2 Shravan jennie ethyl 1000 9-25 cap, PO, l MG Oral 16:36: BID, 0 Gilbert Capsule 00 Refill(s) [Vascepa] clopidogrel Yes 75 mg = 1 M emoria 75 MG Oral 9-25 tab, PO, l Tablet 16:32: Daily, # Gilbert [Plavix] 00 30 tab, 0 Refill(s) Sulfamethox Sulfamethox 2018-0 Yes ROCK TAKE 1 [facility] azole-Trime azole-Trime 9-20 MU-ISM TABLET BY ity of thoprim thoprim 00:00: PA-C MOUTH [place] 800-160 MG 800-160 MG 00 EVERY 12 Physici Oral Tablet Oral Tablet HOURS ans Cephalexin Cephalexin Yes ROCK TAKE 1 TAB [facility] 500 MG Oral 500 MG Oral 6-26 MU-ISM FOUR TIMES ity of Tablet Tablet 00:00: PA-C A DAY [place] 00 Physici ans clopidogrel 2018-0 Yes 75mg Take 75 mg MD (PLAVIX) 75 6-09 by mouth [place] rso mg tablet 00:00: daily. n 00 metFORMIN 2018-0 Yes 1000mg Take 1,000 MD (GLUCOPHAGE 6-03 mg by Anderso ) 500 mg 00:00: mouth n tablet 00 twice daily. CARTIA XT Yes 300mg Take 300 MD 300 mg 24 5-24 mg by Anderso hr capsule 00:00: mouth n 00 daily. carvedilol 2020- No 50mg Take 50 mg MD (COREG) 25 5-24 08-18 by mouth Griffin rso mg tablet 00:00: 00:00 twice n 00 :00 daily. Enoxaparin Enoxaparin Yes ROCK Inject [facility] Sodium 30 Sodium 30 5-13 MU-ISM 0.3ML x 12 ity of MG/0.3ML MG/0.3ML 00:00: PA-C hours [place] Subcutaneou Subcutaneou 00 P hysici s Solution s Solution ans Metformin No Notes: Memori a hydrochlori 5-11 (Same as: l de 1000 MG 14:00: Glucophage H ermann Oral Tablet 00 ) Take with meal insulin reg No insulin Mem oria concentrate 5-10 reg l d 500 14:00: concentrat Khang n unit/ml 00 ed 500 unit/ml, 20 unit, Drug form: MISC, Route: SUB-Q, QAM, 01/03/19 9:00:00 CDT, Duration: 30 day, Stop date: 02/01/19 9:00:00 CDT Humulin R No Notes: Memori a (Concentrat 5-10 (Same as: l ed) 14:00: Humulin R, NovoLIN R) Roll in palms of hands gently; Do not shake vigorously . WASTE: F/P - Black; E - Municipal Trash Bin Stable for 31 days at room temperatur e Expires in days from ____Date Lovenox No Notes: Memoria 5-10 (Same as: l 14:00: Lovenox) ezetimibe No Notes: Memori a 5-10 (Same as: l 14:00: Zetia) enoxaparin Yes 30 mg = Shravan jennie 30 mg/0.3 5-10 0.3 mL, l mL 12:56: SUB-Q, Gilbert subcutaneou 52 [id number], s solution # 20 mL, 0 Refill(s) Docusate Yes 100 mg = 1 Mem oria Sodium 100 5-10 cap, PO, l MG Oral 12:56: BID, # 30 Lelia nn Capsule 00 cap, 0 [Colace] Refill(s) Synthroid No Notes: Memori a 5-10 Take 1 l 12:30: hour Gilbert 00 before or 2 hours after meal; Enteral feeds may interefere with the absorption of this medication . (Same as:Synthro id, Levothroid ) Enoxaparin No Notes: Memor ia 5-10 (Same as: l 02:00: Lovenox) Alexi 00 carvedilol No Notes: Memor ia 5-10 Give with l 02:00: food. Gilbert 00 (Same As: Coreg) insulin reg No insulin Mem oria concentrate - reg l d 23:30: concentrat Gilbert 500units/ml 00 ed 500units/m l, 15 unit, Drug form: MISC, Route: SUB-Q, QPM, 01/02/19 18:30:00 CDT, Duration: 30 day, Stop date: 02/01/19 17:00:00 CDT Humulin R No Notes: Memori a (Concentrat - (Same as: l ed) 23:00: Humulin R, Gilbert 00 NovoLIN R) Roll in palms of hands gently; Do not shake vigorously . WASTE: F/P - Black; E - Municipal Trash Bin Stable for 31 days at room temperatur e Expires in days from ____Date Docusate No 100 mg, Memori a Sodium 100 -09 Route: PO, l MG Oral 22:00: Drug form: Herm deysi Capsule 00 CAP, BID, Dosing Weight 127, kg, Start date: 01/02/19 17:00:00 CDT, Duration: 30 day, Stop date: 02/01/19 9:00:00 CDT cefepime No Notes: Memoria -09 (Same As: l 22:00: Maxipime) MEDICATION WASTE Product Size: 1000 mg Product Wasted: ___ mg Docusate No Notes: Memoria Sodium 100 01-02 (Same as: l MG Oral 22:00: Colace) Gilbert Capsule (Do Not [Colace] Crush) Ondansetron No Notes: Shravan jennie 01-02 (Same as: l 19:43: Zofran) MEDICATION WASTE Product Size: 4 mg Product Wasted: ___ mg Flumazenil No Notes: Memor ia 01-02 (Same as: l 19:43: Romazicon) Naloxone No Notes: Memoria 01-02 Same as l 19:43: Narcan Hydromorpho No Notes: Shravan jennie ne 01-02 Same as l 19:43: Dilaudid Oxycodone No Notes: Memori a 01-02 (Same as: l 19:43: Roxicodone ) Tylenol No Notes: Max Shravan jennie 01-02 acetaminop l 19:42: hen 4000 mg/day (4 gm/day). (Same as: Tylenol Extra Strength) ondansetron No Route: IV, Memoria (ANES) 01-02 Drug form: l 19:11: INJ, ONCE, Stop date: 01/02/19 14:11:00 CDT Diphenhydra No Notes: Shravan jennie mine 01-02 (Same as: l 19:10: Benadryl) Dulcolax No Notes: Memoria Laxative 01-02 (Same As: l 19:10: Dulcolax, Correctol) (Do Not Crush) "Do Not Crush" Ondansetron No Notes: Shravan jennie 01-02 (Same as: l 19:10: Zofran) MEDICATION WASTE Product Size: 4 mg Product Wasted: ___ mg Promethazin No Notes: Do M emoria e 01-02 not give l 19:10: IV push. Alexi (Same as: Phenergan) Acetaminoph No Notes: Do M emoria en 325 MG / 01-02 not exceed l Oxycodone 19:10: 4gm/day of He rmann Hydrochlori 00 acetaminop de 5 MG hen. Oral Tablet (Same as: Percocet-5 /325) Tramadol No Notes: Not Mem oria 01-02 to exceed l 19:10: 400mg/day. Gilbert 00 (Same As: Ultram) Acetaminoph No Notes: Shravan jennie en 325 MG / 01-02 (Same as: l Hydrocodone 19:10: [place] Lelia nn Bitartrate 00 325/5) Do 5 MG Oral not exceed Tablet 4gm/day of acetaminop hen. Lactated No 1,000 mL, Shravan jennie Ringers IV 01-02 Rate: 125 l 1,000 mL 19:10: ml/hr, Gilbert 00 Infuse over: 8 hr, Route: IV, Dosing Weight 127 kg, Total Volume: 1,000, Start date: 01/02/19 14:10:00 CDT, Duration: 30 day, Stop date: 02/01/19 14:09:00 CDT, 2.55, m2 midazolam No Route: IV, Me moria (ANES) 01-02 Drug form: l 18:17: SOLN, ONCE, Stop date: 01/02/19 13:17:00 CDT fentaNYL No Route: IV, Mem oria (ANES) 01-02 Drug form: l 18:17: INJ, ONCE, Stop date: 01/02/19 13:17:00 CDT lidocaine No Route: IV, Me moria (ANES) 01-02 Drug form: l 18:17: INJ, ONCE, Gilbert 00 Stop date: 01/02/19 13:17:00 CDT propofol No Route: IV, Mem oria (ANES) 01-02 Drug form: l 18:17: INJ, ONCE, Stop date: 01/02/19 13:17:00 CDT rocuronium No Route: IV, M emoria (ANES) 01-02 Drug form: l 18:17: INJ, ONCE, Stop date: 01/02/19 13:17:00 CDT succinylcho No Route: IV, Memoria line (ANES) 01-02 Drug form: l 18:17: INJ, ONCE, Stop date: 01/02/19 13:17:00 CDT vancomycin No Route: IV, M emoria (ANES) 2000 01-02 Drug form: l mg 17:41: INJ, Start date: 01/02/19 12:41:00 CDT, Stop date: 01/02/19 13:41:00 CDT Lactated No Route: IV, Mem oria Ringers 01-02 Total l Injection 17:22: Volume: Lelia nn IV () 00 1,000, 1000 mL Start date: 01/02/19 12:22:00 CDT, Stop date: 01/02/19 13:22:00 CDT normal No 1,000 mL, Memori a saline 0.9% 01-02 Rate: 40 l IV 1,000 mL 17:06: ml/hr, Infuse over: 25 hr, Route: IV, Dosing Weight 127 kg, Total Volume: 1,000, Start date: 01/02/19 12:06:00 CDT, Duration: 30 day, Stop date: 02/01/19 12:05:00 CDT, 2.55, m2 Vancomycin No 2001 mg: Me moria 01-02 infuse l 17:06: over 2.5 hours For adult patients only: Round to nearest 250 mg per Medical Staff approval MEDICATION WASTE Product Size: 1000 mg Product Wasted: ___ mg gabapentin No Notes: Memor ia 300 MG Oral 01-02 (Same as: l Capsule 16:00: Neurontin) deysi tizanidine No Notes: Memor ia 01-02 (Same As: l 15:36: Zanaflex) cefepime 1 Yes IV, Q8H, 0 M emoria g 12-31 Refill(s) l intravenous 16:04: Khang n injection 00 Acetaminoph No 1-2 tab, Me moria en 325 MG / 5-07 PO, Q4-6H, l Hydrocodone 16:03: PRN Pain, H ermann Bitartrate 00 # 30 tab, 10 MG Oral 0 Tablet Refill(s) Docusate No 100 mg = 1 Mem oria Sodium 100 5-07 cap, PO, l MG Oral 16:02: BID, # 60 Lelia nn Capsule 00 cap, 1 [Colace] Refill(s) icosapent Yes 2 gm = 2 Shravan jennie ethyl 1000 5-07 cap, PO, l MG Oral 16:02: BID, 0 Alexi Capsule 00 Refill(s) [Vascepa] tizanidine Yes 4 mg = 1 Mem oria 4 mg oral 5-07 tab, PO, l tablet 16:01: Q8H, PRN Alexi 00 for muscle spasms, # 270 tab, 0 Refill(s) tiZANidine tiZANidine Yes ROCK Q8H TAKE 1 [facility] HCl - 4 MG HCl - 4 MG 5-01 MU-ISM TABLET ity of Oral Tablet Oral Tablet 00:00: PA-C EVERY 8 [place] 00 HOURS Physici NEEDED. ans ferrous Yes 325 mg = 1 Shravan jennie sulfate 325 4-29 tab, PO, l MG Oral 15:09: BID, # 28 Lelia nn Tablet 00 tab, 0 Refill(s), Pharmacy: [facility] [id number] enoxaparin Yes 30 mg = Shravan jennie 30 mg/0.3 4-29 0.3 mL, l mL 13:15: SUB-Q, Gilbert subcutaneou 00 [id number], s solution # 20 mL, 0 Refill(s) gabapentin Yes 300 mg = 1 M emoria 300 MG Oral 4-29 cap, PO, l Capsule 13:15: Q8Hnow, # Lelia nn 00 60 cap, 0 Refill(s) tramadol Yes 100 mg = 2 Mem oria hydrochlori 4-29 tab, PO, l de 50 MG 13:15: Q6H, # 80 Herm deysi Oral Tablet 00 tab, 0 Refill(s) ferrous No Notes: Memoria sulfate 4-24 Give with l 14:00: food. iron Alexi 00 elemental [id number] as ferrous sulfate Dose=___mg elemental iron Sodium 2018-0 No 250 mL, Memoria Chloride 12-17 Rate: To l 0.9% 11:50: prime line Alexi (titrate) 00 and flush 250 mL remaining blood products., Dosing Weight 130.364, kg, Route: IV, Total Volume: 250, Priority: Routine, Start Date: 12/17/18 6:50:00 CDT, Duration: 30 day, Stop date: 01/16/19 6:49:00 CDT, Replace Every: 4 hr cefepime 2019-0 No Notes: Memoria - (Same As: l 20:00: Maxipime) Gilbert 00 MEDICATION WASTE Product Size: 1000 mg Product Wasted: ___ mg Sodium 2018-0 No 250 mL, Memoria Chloride 12-16 Rate: To l 0.9% 14:12: prime line Gilbert (titrate) 00 and flush 250 mL remaining blood products., Dosing Weight 130.364, kg, Route: IV, Total Volume: 250, Priority: Routine, Start Date: 12/16/18 9:12:00 CDT, Duration: 30 day, Stop date: 01/15/19 9:11:00 CDT, Replace Every: 24 hr Sodium 2018-0 No 250 mL, Memoria Chloride 12-16 Rate: To l 0.9% 13:37: prime line Alexi (titrate) 00 and flush 250 mL remaining blood products., Dosing Weight 130.364, kg, Route: IV, Total Volume: 250, Priority: Routine, Start Date: 12/16/18 8:37:00 CDT, Duration: 30 day, Stop date: 01/15/19 8:36:00 CDT, Replace Every: 4 hr Humulin R 2019-0 No Humulin R Mem oria U-500 12-16 U-500 l (concentrat 02:00: (concentra Alexi ed) PEN 00 jossue) PEN, 15 units/0.03 mL, Route: SUB-Q, QPM, 12/15/18 21:00:00 CDT, Stop date: 01/13/19 18:00:00 CDT Sodium 2018-0 No 250 mL, Memoria Chloride 4-21 Rate: To l 0.9% 12:09: prime line Gilbert (titrate) 00 and flush 250 mL remaining blood products., Dosing Weight 130.364, kg, Route: IV, Total Volume: 250, Priority: Routine, Start Date: 12/15/18 7:09:00 CDT, Duration: 30 day, Stop date: 01/14/19 7:08:00 CDT, Replace Every: 8 hr cefepime 2018-0 No Notes: Memoria 4-21 (Same as: l 12:00: Maxipime) Gilbert 00 MEDICATION WASTE Product Size: 2000 mg Product Wasted: ___ mg Humulin R 2019- No Humulin R Mem oria U-500 4-20 U-500 l (concentrat 23:00: (concentra Alexi ed) PEN 00 jossue) PEN, 20 units, Route: SUB-Q, Bedtime, 12/14/18 18:00:00 CDT, Duration: 30 day, Stop date: 01/12/19 18:00:00 CDT Cardizem CD 2018-0 No Notes: Shravan jennie 4-20 (Same as: l 16:00: Cardizem Gilbert 00 CD) Do Not Crush Before meals. Cartia XT 2018- No Notes: Memori a 4-20 (Same as: l 14:00: Cardizem Gilbert 00 CD) Before meals. DO NOT CRUSH. Humulin R 2019- No Humulin R Mem oria U-500 4-20 U-500 l (concentrat 14:00: (concentra Alexi ed) PEN 00 jossue) PEN, 20 units/0.04 mL, Route: SUB-Q, Daily, 12/14/18 9:00:00 CDT, Duration: 30 day, Stop date: 01/12/19 9:00:00 CDT Sodium 2019-0 No 250 mL, Memoria Chloride 4-20 Rate: To l 0.9% 12:15: prime line Gilbert (titrate) 00 and flush 250 mL remaining blood products., Dosing Weight 130.364, kg, Route: IV, Total Volume: 250, Priority: Routine, Start Date: 12/14/18 7:15:00 CDT, Duration: 30 day, Stop date: 01/13/19 7:14:00 CDT, Replace Every: 8 hr carvedilol No Notes: Memor ia 4-20 Give with l 02:00: food. Alexi 00 (Same As: Coreg) Humulin R No Humulin R Mem oria U-500 - U-500 l (concentrat 22:00: (concentra Alexi ed) PEN 00 jossue) PEN, 25 units, Drug form: MISC, Route: SUB-Q, BID-Meals, 12/13/18 17:00:00 CDT, Duration: 30 day, Stop date: 01/12/19 8:00:00 CDT Saline No Notes: Memoria Flush 0.9% 12-13 Same as: l 21:00: BD Alexi Posiflush Sterile Humulin R No Notes: Memori a (Concentrat 12-13 (Same as: l ed) 15:00: Humulin R) Alexi Roll in palms of hands gently; Do not shake vigorously . WASTE: F/P - Black; E - [email or web address] Trash Bin Stable for 31 days at room temperatur e Expires in days from ____Date Insulin No 18 unit, Memori a Glargine - 0.18 mL, l 14:00: Route: Alexi 00 SUB-Q, Drug form: SOLN, Daily, Dosing Weight 130.364, kg, Start date: 12/13/18 9:00:00 CDT, Duration: 30 day, Stop date: 01/11/19 9:00:00 CDT Aspirin 81 No Notes: Do Me moria MG Enteric 12-13 not crush l Coated 14:00: or chew. Alexi Tablet (Same As: Ecotrin) Lidocaine No Notes: Memori a Hydrochlori - Preservati l de 10 MG/ML 14:00: ve free. He rmann Injectable 00 (Same as: Solution Xylocaine MPF) Humulin R No Notes: Memori a (Concentrat 12-13 (Same as: l ed) 13:30: Humulin R, Gilbert 00 NovoLIN R) Roll in palms of hands gently; Do not shake vigorously . WASTE: F/P - Black; E - [employer] Trash Bin Stable for 31 days at room temperatur e Expires in days from ____Date Saline No Notes: Memoria Flush 0.9% 12-13 Same as: l 13:12: BD Posiflush Sterile tizanidine No Notes: Memor ia 12-13 (Same As: l 13:08: Zanaflex) Insulin No Notes: Memoria Lispro 12-13 (Same as: l 12:30: Humalog) Roll in palms of hands gently; Do not shake vigorously . WASTE: F/P - Black; E - Municipal Trash Bin Stable for 28 days at room temperatur e. Expires in days from ____Date Synthroid No Notes: Memori a 4-19 Take 1 l 11:30: hour before or 2 hours after meal; Enteral feeds may interefere with the absorption of this medication . (Same as:Synthro id, Levothroid ) Zofran No Notes: Memoria 4-19 (Same as: l 05:00: Zofran ODT) Tramadol No Notes: Not Mem oria 4-19 to exceed l 05:00: 400mg/day. (Same As: Ultram) Vancomycin No 2001 mg: Me moria 4-19 infuse l 04:00: over 2.5 hours For adult patients only: Round to nearest 250 mg per Medical Staff approval MEDICATION WASTE Product Size: 1000 mg Product Wasted: ___ mg Lovenox No Notes: Memoria 4-19 (Same as: l 02:00: Lovenox) atorvastati No Notes: Shravan jennie n -19 (Same as: l 02:00: Lipitor) celecoxib No Notes: Memori a 4-19 NSAID. l 02:00: Please [place] 00 check indication . Not for seizure. (Same As: CeleBREX) Docusate No Notes: Memoria Sodium 100 12-13 (Same as: l MG Oral 02:00: Colace) [place] Capsule 00 (Do Not Crush) Humulin R No Notes: Memori a (Concentrat 12-13 (Same as: l ed) 01:56: Humulin R, [place] 00 NovoLIN R) Roll in palms of hands gently; Do not shake vigorously . WASTE: F/P - Black; E - Municipal Trash Bin Stable for 31 days at room temperatur e Expires in days from ____Date Insulin No Notes: Memoria Lispro 12-13 (Same as: l 01:21: Humalog) [place] Roll in palms of hands gently; Do not shake vigorously . WASTE: F/P - Black; E - Municipal Trash Bin Stable for 28 days at room temperatur e. Expires in days from ____Date Glucagon No 1 mg, Memoria 12-13 Route: IM, l 01:21: Drug form: [place] 00 PDR/INJ, PRN, Dosing Weight 130.364, kg, PRN Blood Glucose Results, Start date: 12/12/18 20:21:00 CDT, Duration: 30 day, Stop date: 01/11/19 20:20:00 CDT Dextrose No 12.5 gm, Memor ia 50% Syringe 12-13 25 mL, l 01:21: Route: [place] 00 IVP, Drug Form: INJ, Dosing Weight 130.364, kg, PRN, PRN Blood Glucose Results, Start date: 12/12/18 20:21:00 CDT, Duration: 30 day, Stop date: 01/11/19 20:20:00 CDT Oxycodone No Notes: Memori a Hydrochlori 12-13 (Same as: l de 5 MG 01:13: Roxicodone Herm deysi Oral Tablet 00 ) Acetaminoph No Notes: Max Memoria en 12-12 acetaminop l 23:00: hen 4000 Alexi 00 mg/day (4 gm/day). (Same as: Tylenol Extra Strength) Docusate No Notes: Memoria 4-18 (Same as: l 22:00: Colace) (Do Not Crush) midazolam No Route: IV, Me moria (ANES) 418 Drug form: l 21:29: SOLN, ONCE, Stop date: 12/12/18 16:29:00 CDT gabapentin No Notes: Memor ia 4-18 (Same as: l 21:00: Neurontin) Melatonin No Notes: Memori a 4-18 (Same as: l 20:53: Melatonin) Ondansetron No Notes: Shravan jennie 4-18 (Same as: l 20:53: Zofran) MEDICATION WASTE Product Size: 4 mg Product Wasted: ___ mg Diphenhydra No Notes: Shravan jennie mine -18 (Same as: l 20:53: Benadryl) Tramadol No Notes: Not Mem oria 4-18 to exceed l 20:53: 400mg/day. (Same As: Ultram) Morphine No Notes: Memoria 4-18 (Same l 20:53: as:MORPhin Alexi 00 e Sulfate) Ondansetron No Notes: Shravan jennie 4-18 (Same as: l 20:52: Zofran) MEDICATION WASTE Product Size: 4 mg Product Wasted: ___ mg Morphine No Notes: Memoria 4-18 (Same l 20:52: as:MORPhin [place] 00 e Sulfate) Naloxone No Notes: Memoria 4-18 Same as l 20:52: Narcan Flumazenil No Notes: Memor ia 4-18 (Same as: l 20:52: Romazicon) Hydralazine No Notes: Shravan jennie 4-18 (Same as: l 20:52: Apresoline ) Push over 5 minutes Hydromorpho No Notes: Shravan jennie ne 4-18 Same as l 20:52: Dilaudid Diphenhydra No Notes: Shravan jennie mine 4-18 (Same as: l 20:52: Benadryl) Albuterol No Notes: SEE Me moria 0.83 MG/ML 4-18 RT l Inhalant 20:52: DOCUMENTAT Her sullivan Solution 00 ION (Same as: Proventil) ePHEDrine No Route: IV, Me moria (ANES) -18 Drug form: l 20:46: INJ, ONCE, Stop date: 12/12/18 15:46:00 CDT neostigmine No Route: IV, Memoria (ANES) 4-18 Drug form: l 20:46: INJ, ONCE, Stop date: 12/12/18 15:46:00 CDT ondansetron No Route: IV, Memoria (ANES) -18 Drug form: l 20:46: INJ, ONCE, Stop date: 12/12/18 15:46:00 CDT phenylephri No Route: IV, Memoria ne (ANES) -18 Drug form: l 20:27: INJ, ONCE, Stop date: 12/12/18 15:27:00 CDT glycopyrrol No Route: IV, Memoria ate (ANES) 18 Drug form: l 20:27: INJ, ONCE, Stop date: 12/12/18 15:27:00 CDT Diphenhydra No Notes: Shravan jennie mine -18 (Same as: l 20:24: Benadryl) Dulcolax No Notes: Memoria Laxative -18 (Same As: l 20:24: Dulcolax, Correctol) (Do Not Crush) "Do Not Crush" Ondansetron No Notes: Shravan jennie 4-18 (Same as: l 20:24: Zofran) MEDICATION WASTE Product Size: 4 mg Product Wasted: ___ mg Hydromorpho No Notes: Shravan jennie ne 4-18 Same as l 20:24: Dilaudid Tramadol No Notes: Not Mem oria 4-18 to exceed l 20:24: 400mg/day. Alexi 00 (Same As: Ultram) Acetaminoph No Notes: Do M emoria en 325 MG / 4-18 not exceed l Oxycodone 20:24: 4gm/day of He rmann Hydrochlor acetaminop de 5 MG hen. Oral Tablet (Same as: Percocet-5 /325) Promethazin No Notes: Do M emoria e 4-18 not give l 20:24: IV push. (Same as: Phenergan) Acetaminoph No Notes: Sharvan jennie en 325 MG / -18 (Same as: l Hydrocodone 20:24: [place] Lelia nn Bitartrate 00 325/5) Do 5 MG Oral not exceed Tablet 4gm/day of acetaminop hen. Lactated No 1,000 mL, Shravan jennie Ringers IV 18 Rate: 125 l 1,000 mL 20:24: ml/hr, Infuse over: 8 hr, Route: IV, Dosing Weight 130.364 kg, Total Volume: 1,000, Start date: 12/12/18 15:24:00 CDT, Duration: 30 day, Stop date: 01/11/19 15:23:00 CDT, 2.59, m2 vancomycin No Route: IV, M emoria (ANES) -18 Drug form: l 20:02: INJ, ONCE, Stop date: 12/12/18 15:02:00 CDT succinylcho No Route: IV, Memoria line (ANES) -18 Drug form: l 19:47: INJ, ONCE, Stop date: 12/12/18 14:47:00 CDT propofol No Route: IV, Mem oria (ANES) 4-18 Drug form: l 19:47: INJ, ONCE, Stop date: 12/12/18 14:47:00 CDT dexamethaso No Route: IV, Memoria ne (ANES) 4-18 Drug form: l 19:47: INJ, ONCE, Stop date: 12/12/18 14:47:00 CDT rocuronium 2019-0 No Route: IV, Ellyn emoria (ANES) 4-18 Drug form: l 19:47: INJ, ONCE, Stop date: 12/12/18 14:47:00 CDT lidocaine 2019-0 No Route: IV, Me moria (ANES) 4-18 Drug form: l 19:47: INJ, ONCE, Stop date: 12/12/18 14:47:00 CDT fentaNYL 2018-0 No Route: IV, Mem oria (ANES) 12-12 Drug form: l 19:42: INJ, ONCE, Stop date: 12/12/18 14:42:00 CDT vancomycin 2018-0 No Route: IV, M emoria (ANES) 1.5 - Drug form: l gm 19:27: INJ, Start date: 12/12/18 14:27:00 CDT, Stop date: 12/12/18 15:27:00 CDT midazolam 2018-0 No Route: IV, moria (ANES) 12-12 Drug form: l 19:22: SOLN, 00 ONCE, Stop date: 12/12/18 14:22:00 CDT Lactated 2018-0 No Route: IV, Mem oria Ringers -18 Total l Injection 18:44: Volume: Lelia nn IV (ANES) 00 1,000, 1000 mL Start date: 12/12/18 13:44:00 CDT, Stop date: 12/12/18 14:44:00 CDT Vancomycin 2018-0 No 2001 mg: Me moria -18 infuse l 15:56: over 2.5 hours For adult patients only: Round to nearest 250 mg per Medical Staff approval MEDICATION WASTE Product Size: 1000 mg Product Wasted: ___ mg Lactated No 1,000 mL, Shravan jennie Ringers IV 18 Rate: 40 l 1,000 mL 15:38: ml/hr, Infuse over: 25 hr, Route: IV, Dosing Weight 123.636 kg, Total Volume: 1,000, Start date: 12/12/18 10:38:00 CDT, Duration: 30 day, Stop date: 01/11/19 10:37:00 CDT, 2.7, m2 magnesium 2018- Yes 400 mg = 1 Me moria oxide 400 4-16 tab, PO, l mg oral 20:15: Daily, # Khang n tablet 00 10 tab, 0 Refill(s) clindamycin No 300 mg = 1 Memoria 300 mg oral 4-16 cap, PO, l capsule 20:14: TID, # 40 Lelia nn 00 cap, 0 Refill(s) Clindamycin Clindamycin Yes ROCK 1 Q0.3333D TAKE 1 [facility] HCl - 300 HCl - 300 4-10 MU-ISM CAPSULE 3 ity of MG Oral MG Oral 00:00: PA- TIMES [place] Capsule Capsule 00 DAILY Physici ans Levothyroxi Yes 75 Memori a ne Sodium 3-26 microgram l 0.075 MG 21:18: = 1 tab, Lelia nn Oral Tablet 43 PO, Daily, [Synthroid] # 90 tab, 1 Refill(s), Pharmacy: [place] [id number] Cephalexin Cephalexin Yes ROCK 1 Q0.25D TAKE 1 [facility] 500 MG Oral 500 MG Oral 3-25 MU-ISM CAPSULE 4 ity of Capsule Capsule 00:00: [facility] TIMES [place] 00 DAILY Physici ans Cephalexin Cephalexin Yes ROCK Q0.25D TAKE 1 [facility] 500 MG Oral 500 MG Oral 3-14 MU-ISM CAPSULE 4 ity of Capsule Capsule 00:00: [facility] 00 DAILY. Physici ans VASCEPA 1 Yes 4{capsu Take 4 MD gram cap 3-12 le} capsules Anderso 00:00: by mouth n 00 daily. Folic Acid Yes 1 mg = 1 Mem oria 1 MG Oral 3-02 tab, PO, l Tablet 20:11: Daily, # [place] 00 30 tab, 0 Refill(s), Pharmacy: [place] [id number] cyanocobala Yes 1,000 Memor ia min 1000 3-02 microgram l mcg with 20:11: = 1 tab, Lelia nn salcaprozat 00 PO, Daily, e sodium # 30 tab, oral tablet 0 Refill(s), Pharmacy: [place] [id number] cyanocobala No 1,000 Memor ia min 1000 3-02 microgram l mcg with 16:00: = 1 tab, Lelia nn salcaprozat 00 PO, Daily, e sodium # 30 tab, oral tablet 0 Refill(s), Pharmacy: [facility] Folic Acid No 1 mg = 1 Mem oria 1 MG Oral 3-02 tab, PO, l Tablet 16:00: Daily, # Alexi 00 30 tab, 0 Refill(s), Pharmacy: [facility] tramadol Yes 50 mg = 1 Shravan jennie hydrochlori 3-02 tab, PO, l de 50 MG 15:37: Q6H, PRN Lelia nn Oral Tablet 00 Pain, X 10 day, # 50 tab, 0 Refill(s) Humulin R No Humulin R Mem oria 500 unit/ml 10-25 500 l 23:00: unit/ml, [place] 00 20 unit, Route: SUB-Q, BID-Meals, 10/25/18 17:00:00 SALOONKEEPER, Duration: 30 day, Stop date: 11/24/18 8:00:00 CDT Metformin No Notes: Memori a hydrochlori 10-25 (Same as: l de 500 MG 23:00: Glucophage He rmann Oral Tablet 00 ) Take with meal Regular No 20 unit, Memori a Insulin, 10-25 Route: l Human 100 23:00: SUB-Q, Khang n UNT/ML 00 BID-Meals, Injectable Dosing Solution Weight [Humulin R] 123.818, kg, Start date: 10/25/18 17:00:00 SALOONKEEPER, Duration: 30 day, Stop date: 11/24/18 8:00:00 CDT Humulin N No Notes: Memori a Pen - Roll in l 22:30: palms of [place] 00 hands gently; Do not shake vigorously . (Same as: NovoLIN N, Humulin N) Do not hold insulin without contacting prescriber "single patient use only" WASTE: F/P - Black; E - Municipal Trash Bin Stable for 14 days at room temperatur e Expires in days from ____Date Dextrose No 25 gm, 50 Shravan jennie 50% Syringe 3-01 mL, Route: l 18:05: IVP, Drug Form: INJ, Dosing Weight 123.818, kg, PRN, PRN Blood Glucose Results, Start date: 10/25/18 12:05:00 SALOONKEEPER, Duration: 30 day, Stop date: 11/24/18 13:04:00 CDT Glucagon No 1 mg, Memoria 10-25 Route: IM, l 18:05: Drug form: Alexi 00 PDR/INJ, PRN, Dosing Weight 123.818, kg, PRN Blood Glucose Results, Start date: 10/25/18 12:05:00 SALOONKEEPER, Duration: 30 day, Stop date: 11/24/18 13:04:00 CDT Insulin 2018- No Notes: Memoria Lispro 10-25 (Same as: l 18:05: Humalog ) Roll in palms of hands gently; Do not shake `vigorousl y. "Single Patient Use Only " WASTE: F/P - Black; E - Municipal Trash Bin Stable for 28 days at room temperatur e. Expires in days from ____Date Folic Acid 2018- No Notes: Memor ia 10-25 (Same as: l 15:41: Folvite) Vitamin B12 No Notes: Shravan jennie 10-25 (Same As: l 15:41: Vitamin B-12) ezetimibe No Notes: Memori a 3- (Same as: l 15:00: Zetia) Cartia XT 2018- No Notes: Memori a 3- (Same as: l 15:00: Cardizem [place] 00 CD) Do Not Crush Before meals. lactobacill 2019-0 No 1 tab, Shravan jennie us 10-25 Route: PO, l acidophilus 15:00: Drug Form: Alexi TAB, Daily, Start date: 10/25/18 9:00:00 SALOONKEEPER, Duration: 30 day, Stop date: 11/23/18 9:00:00 CDT Magnesium 2018-0 No Notes: Memori a Oxide - (Same as: l 15:00: Mag-Ox 400) Magnesium oxide 306jn=863d g elemental magnesium Dose=____m g magnesium oxide (___mg elemental magnesium) Synthroid No Notes: Memori a 3- Take 1 l 12:30: hour before or 2 hours after meal; Enteral feeds may interefere with the absorption of this medication . (Same as:Synthro id, Levothroid ) Lovenox No Notes: Memoria 3- (Same as: l 12:00: Lovenox) Aspirin No 325 mg, Memoria 10-25 Route: PO, l 10:01: Q12H, Dosing Weight 123.818, kg, For patients with risk of bleeding, Start date: 10/25/18 4:01:00 SALOONKEEPER, Stop date: 11/23/18 21:00:00 CDT Cefazolin Yes Notes: Memori a 10-25 Same as: l 05:00: Ancef carvedilol No Notes: Memor ia 10-25 Give with l 03:00: food. Alexi (Same As: Coreg) Docusate No Notes: Memoria Sodium 100 10-25 (Same as: l MG Oral 03:00: Colace) Capsule (Do Not Crush) Hydralazine No Notes: Shravan jennie Hydrochlori 10-25 (Same as: l de 50 MG 00:00: Apresoline Her sullivan Oral Tablet ) May interfere w/enteral feedings Take With Food. ondansetron No Route: IV, Memoria (ANES) 10-24 Drug form: l 22:07: INJ, ONCE, Stop date: 10/24/18 16:07:00 SALOONKEEPER Diphenhydra No Notes: Shravan jennie mine 10-24 (Same as: l 22:00: Benadryl) Dulcolax No Notes: Memoria Laxative 10-24 (Same As: l 22:00: Dulcolax, Correctol) (Do Not Crush) "Do Not Crush" Promethazin No Notes: Do M emoria e 10-24 not give l 22:00: IV push. Alexi (Same as: Phenergan) Ondansetron No Notes: Shravan jennie - (Same as: l 22:00: Zofran) Alexi 00 MEDICATION WASTE Product Size: 4 mg Product Wasted: ___ mg Acetaminoph No Notes: Do M emoria en 325 MG / 10-24 not exceed l Oxycodone 22:00: 4gm/day of He rmann Hydrochlori 00 acetaminop de 5 MG hen. Oral Tablet (Same as: Percocet-5 /325) Acetaminoph No Notes: Shravan jennie en 325 MG / 10-24 (Same as: l Hydrocodone 22:00: [place] Lelia nn Bitartrate 00 325/5) Do 5 MG Oral not exceed Tablet 4gm/day of acetaminop hen. Tramadol No Notes: Not Mem oria 10-24 to exceed l 22:00: 400mg/day. [place] 00 (Same As: Ultram) Hydromorpho No Notes: Shravan jennie ne 10-24 Same as l 22:00: Dilaudid [place] 00 Lactated No 1,000 mL, Shravan jennie Ringers IV 10-24 Rate: 125 l 1,000 mL 22:00: ml/hr, Infuse over: 8 hr, Route: IV, Dosing Weight 123.818 kg, Total Volume: 1,000, Start date: 10/24/18 16:00:00 SALOONKEEPER, Duration: 30 day, Stop date: 11/23/18 15:59:00 CDT, 2.53, m2 Ondansetron No Notes: Shravan jennie - (Same as: l 20:22: Zofran) MEDICATION WASTE Product Size: 4 mg Product Wasted: ___ mg Hydromorpho No Notes: Shravan jennie ne - Same as l 20:22: Dilaudid Alexi Naloxone No Notes: Memoria 10-24 Same as l 20:22: Narcan [place] 00 Flumazenil No Notes: Memor ia 10-24 (Same as: l 20:22: Romazicon) [place] 00 Morphine 2018- No Notes: Memoria 2-28 (Same l 20:22: as:MORPhin Alexi 00 e Sulfate) rocuronium No Route: IV, M emoria (ANES) - Drug form: l 19:49: INJ, ONCE, Stop date: 10/24/18 13:49:00 SALOONKEEPER fentaNYL No Route: IV, Mem oria (ANES) 10-24 Drug form: l 19:44: INJ, ONCE, Stop date: 10/24/18 13:44:00 SALOONKEEPER propofol No Route: IV, Mem oria (ANES) 10-24 Drug form: l 19:44: INJ, ONCE, Stop date: 10/24/18 13:44:00 SALOONKEEPER lidocaine No Route: IV, Me moria (ANES) 10-24 Drug form: l 19:44: INJ, ONCE, Stop date: 10/24/18 13:44:00 SALOONKEEPER ceFAZolin No Route: IV, Me moria (ANES) 10-24 Drug form: l 19:39: INJ, ONCE, Stop date: 10/24/18 13:39:00 SALOONKEEPER Lactated No Route: IV, Mem oria Ringers - Total l Injection 18:31: Volume: Lelia nn IV (ANES) 00 1,000, 1000 mL Start date: 10/24/18 12:31:00 SALOONKEEPER, Stop date: 10/24/18 13:31:00 SALOONKEEPER Ancef + No Notes: Memoria Sodium - (Same As: l Chloride 17:08: Ancef, Alexi 0.9% IV 100 00 Kefzol) mL MEDICATION WASTE Product Size: 1000 mg Product Wasted: ___ mg Ancef No 2 gm, 50 Memoria 2-28 mL, Route: l 17:07: IVPB, Drug form: INJ, ONCE, Dosing Weight 123.818, kg, Start date: 10/24/18 11:07:00 SALOONKEEPER, Stop date: 10/24/18 11:07:00 SALOONKEEPER, Surgical Prophylaxi s Only; For patients < 120 kg, ABX Indication : Surgical Prophylaxi s Lactated 2018-0 No 1,000 mL, Shravan jennie Ringers IV 10-24 Rate: 40 l 1,000 mL 17:07: ml/hr, Infuse over: 25 hr, Route: IV, Dosing Weight 123.818 kg, Total Volume: 1,000, Start date: 10/24/18 11:07:00 SALOONKEEPER, Duration: 30 day, Stop date: 11/23/18 11:06:00 CDT, 2.53, m2 Bifidobacte 2019-0 No 1 cap, Shravan jennie rium lactis 10-24 Route: PO, l / 15:00: Drug Form: Alexi Bifidobacte 00 CAP, rium longum Dosing / Weight Lactobacill 125.057, us kg, Daily, acidophilus Start date: 10/24/18 9:00:00 SALOONKEEPER, Duration: 30 day, Stop date: 11/22/18 9:00:00 CDT Insulin 2018-0 No Notes: Memoria Lispro - (Same as: l 19:55: Humalog ) Roll in palms of hands gently; Do not shake `vigorousl y. "Single Patient Use Only " WASTE: F/P - Black; E - Municipal Trash Bin Stable for 28 days at room temperatur e. Expires in days from ____Date Dextrose 2019-0 No 25 gm, 50 Shravan jennie 50% Syringe 2-27 mL, Route: l 19:55: IVP, Drug Form: INJ, Dosing Weight 125.057, kg, PRN, PRN Blood Glucose Results, Start date: 10/23/18 13:55:00 SALOONKEEPER, Duration: 30 day, Stop date: 11/22/18 14:54:00 CDT Glucagon 2019-0 No 1 mg, Memoria 2-27 Route: IM, l 19:55: Drug form: [place] 00 PDR/INJ, PRN, Dosing Weight 125.057, kg, PRN Blood Glucose Results, Start date: 10/23/18 13:55:00 SALOONKEEPER, Duration: 30 day, Stop date: 11/22/18 14:54:00 CDT HUMULIN R 2019-0 Yes 70U Inject 70 MD U-500, 2-19 Units Anderso CONC, 00:00: under the n KWIKPEN 500 00 skin twice unit/mL (3 daily. mL) insulin Sliding pen scale Acetaminoph No 650 mg = 2 Memoria en 325 MG 2-14 tab, PO, l Oral Tablet 15:55: PRN, PRN He rmann [Tylenol] 00 Pain, # 120 tab, 0 Refill(s) cabozantini Yes 40 mg = 1 M emoria b 40 MG 1-28 tab, PO, l Oral Tablet 21:28: Daily, Herm deysi [Cabometyx] 00 with at least 8 ounces of water; do not break, chew, or open capsules; on an empty stomach, # 30 tab, 5 Refill(s), Pharmacy: [facility], icd10: C64.9; Discontinu e RX for 60mg dose Levothyroxi 2017-08 No 75 Memori a ne Sodium 2-06 microgram l 0.075 MG 19:13: = 1 tab, Lelia nn Oral Tablet 00 PO, Daily, [Synthroid] # 90 tab, 0 Refill(s), Pharmacy: [facility] [id number] Imodium A-D 2017-08 No 2 mg, PO, M emoria 1-27 Q4H, 0 l 21:02: Refill(s) [place] 00 metFORMIN metFORMIN 2017-08 Yes 2 Q0.5D TAKE 2 Univers HCl - 500 HCl - 500 1-05 TABLET ity of MG Oral MG Oral 00:00: TWICE [place] Tablet Tablet 00 DAILY Physici ans Zetia 10 MG Zetia 10 MG 2017-08 Yes 1 TAKE 1 Univers Oral Tablet Oral Tablet 1-05 TABLET AT ity of 00:00: BEDTIME. 00 Physici ans Carvedilol Carvedilol 2017-08 Yes 2 Q0.5D TAKE 2 Univers 25 MG Oral 25 MG Oral 1-05 TABLET i ty of Tablet Tablet 00:00: TWICE [place] 00 DAILY Physici ans Cartia XT Cartia XT 2017-08 Yes 1 QD TAKE 1 U nivers 300 MG Oral 300 MG Oral 1-05 CAPSULE ity of Capsule Capsule 00:00: DAILY [place] Extended Extended 00 Physici Release 24 Release 24 ans Hour Hour guanFACINE guanFACINE 2018-1 Yes Q0.5D TAKE 1 Univers HCl - 1 MG HCl - 1 MG 1-05 TABLET i ty of Oral Tablet Oral Tablet 00:00: TWICE [place] 00 DAILY. Physici ans Testosteron Testosteron 2017-08 Yes TAKE 1ML Univers e Cypionate e Cypionate 1-05 EVERY 2 ity of Powder Powder 00:00: WEEKS [place] 00 Physici ans Clopidogrel Clopidogrel 2017-08 Yes 1 QD TAKE 1 Univers Bisulfate Bisulfate 1-05 TABLET ity of 75 MG Oral 75 MG Oral 00:00: DAILY. [place] Tablet Tablet 00 Physici ans HumuLIN R HumuLIN R 2017-08 Yes as needed Univers U-500 U-500 1-05 ity of KwikPen 500 KwikPen 500 00:00: [place] UNIT/ML UNIT/ML 00 Physici Subcutaneou Subcutaneou a ns s Solution s Solution Pen-injecto Pen-injecto r r Aspirin Aspirin 2017-08 Yes 1 QD TAKE 1 Unive rs Adult Low Adult Low 1-05 TABLET ity of Dose 81 MG Dose 81 MG 00:00: DAILY. [place] Oral Tablet Oral Tablet 00 P hysici Delayed Delayed ans Release Release Vitamin C Vitamin C 2017-08 Yes 1 Q0.5D TAKE 1 Univers 500 MG Oral 500 MG Oral 1-05 CAPSULE ity of Capsule Capsule 00:00: TWICE [place] 00 DAILY Physici ans Levothyroxi Levothyroxi 2017-08 Yes QD TAKE 1 Univers ne Sodium ne Sodium 1-05 TABLET ity of 50 MCG Oral 50 MCG Oral 00:00: DAILY [place] Tablet Tablet 00 DIRECTED. Physic i ans Econazole Econazole 2017-08 Yes as needed Univers Nitrate 1 % Nitrate 1 % 1-05 i ty of External External 00:00: [place] Cream Cream 00 Physici ans Vitamin D Vitamin D 2017-08 Yes 1 Q0.5D TAKE 1 Univers 50 MCG 50 MCG 1-05 CAPSULE ity of (1999 UT) (1999 UT) 00:00: TWICE [place] Oral Oral 00 DAILY Physici Capsule Capsule ans Cabometyx Cabometyx 2017-08 Yes 1 QD TAKE 1 U nivers 60 MG Oral 60 MG Oral 1-05 TABLET BY ity of Tablet Tablet 00:00: MOUTH ONCE [place] as 00 DAILY Physici ans hydrALAZINE hydrALAZINE 2017-08 Yes 1 Q0.25D TAKE 1 Univers HCl - 50 MG HCl - 50 MG 1-05 TABLET 4 ity of Oral Tablet Oral Tablet 00:00: TIMES [place] 00 DAILY Physici ans PreserVisio PreserVisio 2017-08 Yes TAKE Univers n AREDS n AREDS 08-31 DIRECTED. ity of Oral Oral 00:00: [place] Capsule Capsule 00 Physici ans Fish Oil Fish Oil 2017-08 Yes 1 Q0.5D TAKE 1 Un arline 1000 MG 1000 MG 05 CAPSULE ity of Oral Oral 00:00: TWICE [place] Capsule Capsule 00 DAILY Physici ans Probiotic Probiotic 2017-08 Yes USE U nivers Oral Oral 08-31 DIRECTED. ity of Capsule Capsule 00:00: [place] 00 Physici ans Centrum Centrum 2017-08 Yes 1 QD TAKE 1 Unive rs TABS TABS 05 TABLET ity of 00:00: DAILY. Physici ans multivit-mi 2017-08 2020- No Take by MD fairchildFA-lycope 08-31 mouth. Jose L so n-lutein 00:00: 00:00 n 0.4-300-250 00 :00 mg-mcg-mcg tab carvedilol 2017-08 2020- No Take by (COREG) 25 08-31 mouth. Gerhard o mg tablet 00:00: 00:00 n 00 :00 docosahexae 2017-08 2020- No Take by noic 08-31 mouth. Anderso acid-epa 00:00: 00:00 n 120-180 mg 00 :00 cap multivit-mi 2017-08 2020- No Take by MD fairchildFA-lycope 08-31 mouth. Jose L so n-lutein 00:00: 00:00 n 0.4-300-250 00 :00 mg-mcg-mcg tab metFORMIN 2017-08 2020- No Take by (GLUCOPHAGE 08-31 mouth. Jose L so ) 500 mg 00:00: 00:00 n tablet 00 :00 levothyroxi 2017-08 No 50 Memori a ne 50 mcg 0-30 microgram l (0.05 mg) 20:58: = 1 tab, Herm deysi oral tablet 00 PO, Daily, # 30 tab, 5 Refill(s), Pharmacy: [place] [id number] Atropine No 1 tab, PO, Mem oria Sulfate 9-21 QID, PRN l 0.025 MG / 19:55: for loose He rmann Diphenoxyla 00 stool, 0 te Refill(s) Hydrochlori de 2.5 MG Oral Tablet [Lomotil] magnesium No 400 mg = 1 Me moria oxide 400 9-21 tab, PO, l mg oral 19:55: Daily, 0 Khang n tablet 00 Refill(s) Atropine No 1 tab, PO, Mem oria Sulfate 9-18 QID, PRN l 0.025 MG / 17:07: for loose He rmann Diphenoxyla 00 stool, 0 te Refill(s) Hydrochlori de 2.5 MG Oral Tablet [Lomotil] magnesium No 400 mg = 1 Me moria oxide 400 9-18 tab, PO, l mg oral 17:02: Daily, X Khang n tablet 00 90 day, # 90 tab, 1 Refill(s), Pharmacy: [facility] [id number] cabozantini No See Memori a b 60 MG 9-14 Instructio l Oral Tablet 20:40: ns, # 30 He rmann [Cabometyx] 08 tab, Refill(s) 5, TAKE 1 TABLET DAILY WITH AT LEAST 8OZ OF WATER. DO NOT EAT FOR 2 HOURS BEFORE OR ONE HOUR AFTER DOSE, [facility] levothyro[facility] 25 Memori a ne 25 mcg 8-14 microgram l (0.025 mg) 20:53: = 1 tab, Her sullivan oral tablet 00 PO, Daily, # 30 tab, 4 Refill(s), Pharmacy: [facility] [id number], discontinu e RX for previous levothyrox ine doses Ondansetron Yes 8 mg = 1 Me moria 8 MG Oral 8-14 tab, PO, l Tablet 20:42: TID, as Alexi 00 needed for nausea, # 40 tab, 0 Refill(s), Pharmacy: [facility] [id number] levothyroxi No 50 Memori a ne 50 mcg 7-17 microgram l (0.05 mg) 19:08: = 1 tab, Herm deysi oral tablet 00 PO, Daily, # 30 tab, 3 Refill(s), Pharmacy: [facility] [id number], discontinu e levothyrox ine 75mcg tab Hydralazine Yes 50 mg = 1 M emoria Hydrochlori 7-17 tab, PO, l de 50 MG 15:24: Q6H, # 120 Her sullivan Oral Tablet 00 tab, 0 Refill(s) pantoprazol Yes 40 mg = 1 M emoria e 40 mg 6-26 tab, PO, l oral 21:52: Daily, # Alexi enteric 00 30 tab, 3 coated Refill(s), tablet Pharmacy: [facility] [id number] Hydralazine Yes 25 mg = 1 M emoria Hydrochlori 6-26 tab, PO, l de 25 MG 20:31: QID, # 360 Her sullivan Oral Tablet 00 tab, 0 Refill(s) levothyroxi Yes 75 Memori a ne 75 mcg 6-05 microgram l (0.075 mg) 16:54: = 1 tab, Her sullivan oral tablet 00 PO, Daily, # 30 tab, 1 Refill(s), Pharmacy: [facility] [id number] lisinopril Yes 20 mg = 1 Me moria 20 mg oral 5-30 tab, PO, l tablet 19:49: Daily, # Alexi 00 30 tab, 1 Refill(s), Pharmacy: [facility] [id number] 24 HR Yes 300 mg = 1 Memori a Diltiazem - cap, PO, l Hydrochlori 19:11: Daily, # He rmann de 300 MG 00 30 cap, 0 Extended Refill(s) Release Capsule [Cartia] Probiotic No 1 cap, PO, Me moria Formula - Daily, 0 l oral 19:11: Refill(s) Alexi capsule 00 PreserVisio Yes 1 cap, PO, Memoria n AREDS 2 - Daily, 0 l oral 19:11: Refill(s) Alexi capsule 00 Regular Yes See Memoria Insulin, 11-21 Instructio l Human 500 19:11: ns, PRN Lelia nn UNT/ML 00 Other -See Injectable Comment, 0 Solution Refill(s) [Humulin R] D3 1000 Yes 1,000 Memoria oral tablet 11-21 IntlUnit = l 19:11: 1 tab, PO, Gilbert 00 Daily, 0 Refill(s) tramadol No 50 mg = 1 Shravan jennie hydrochlori 3-28 tab, PO, l de 50 MG 19:11: PRN, 0 Alexi Oral Tablet 00 Refill(s) Urea 400 No 1 appl, Memori a MG/ML 3-27 TOP, BID, l Topical 20:34: PRN Dry Gilbert Cream 00 Skin, X 7 day, # 90 gm, 0 Refill(s), Pharmacy: [facility] [id number] Hydralazine Yes /=90mmHg, M emoria Hydrochlori 327 # 120 tab, l de 10 MG 20:34: 5 Alexi Oral Tablet 00 Refill(s), Pharmacy: [place] [id number] cabozantini Yes 60 mg = 1 M emoria b 60 MG 3-22 tab, PO, l Oral Tablet 16:05: Daily, Herm deysi [Cabometyx] 00 with at least 8 ounces of water; do not eat for 2 hours before dose or 1 hour after dose, # 30 tab, 5 Refill(s), Pharmacy: [facility], CD10: C64.9 Vitamin C Yes 500 mg, Memor ia 3-20 PO, Daily, l 16:20: 0 Gilbert 00 Refill(s) Vitamin D3 Yes 2,000 Memori a 2000 intl 3-20 IntlUnit = l units oral 16:20: 1 cap, PO, H ermann capsule 00 Daily, # 100 cap, 3 Refill(s) Guanfacine Yes 1 mg, PO, Me moria 3-20 Daily, 0 l 16:20: Refill(s) Alexi Aspirin 81 Yes 81 mg = 1 Me moria MG Enteric 3-20 tab, PO, l Coated 16:20: Daily, # Gilbert Tablet 00 90 tab, 3 Refill(s) Centrum 2018-0 Yes Daily, 0 Memori a 3-20 Refill(s) l 16:20: Gilbert 00 PreserVisio 0 No PO, Daily, Memoria n 3-20 0 l 16:20: Refill(s) Gilbert 00 Probiotic 2017-0 Yes 1 cap, PO, Me moria Formula 3-20 Daily, 0 l oral 16:20: Refill(s) Gilbert capsule 00 Fish Oil 0 Yes PO, 0 Memoria 3-20 Refill(s) l 16:20: Gilbert 00 tramadol Yes 50 mg = 1 Shravan jennie hydrochlori 3-20 tab, PO, l de 50 MG 16:20: Q4H, 0 Gilbert Oral Tablet 00 Refill(s) Relion Yes Relion Memoria Glucose 3-20 Glucose l Tablets 16:20: Tablets, Khang n 00 See Instructio ns, Refill(s) 0 testosteron No See Memori a e cypionate 3-20 Instructio l 16:20: ns, 1 ML Alexi 00 evrey 2 weeks, 0 Refill(s) clopidogrel Yes 75 mg = 1 M emoria 75 mg oral 3-20 tab, PO, l tablet 16:20: Daily, 0 Gilbert 00 Refill(s) Metformin Yes 1,000 mg = Me moria hydrochlori 3-20 2 tab, l de 500 MG 16:20: twice a Lelia nn Oral Tablet 00 day, 0 Refill(s) ezetimibe Yes 10 mg = 1 Mem oria 10 mg oral 3-03 tab, PO, l tablet 20:37: Daily, 0 Gilbert 00 Refill(s) diltiazem No 300 mg = 1 Me moria 300 mg/24 3-03 cap, PO, l hours oral 20:37: Daily, 0 Her sullivan capsule, 00 Refill(s) extended release carvedilol Yes 50 mg = 2 Me moria 25 mg oral 3-03 tab, PO, l tablet 20:37: Q12H, 0 Gilbert Refill(s) Miralax No Notes: Memoria 3-02 Dissolve l 23:00: in 8 oz of water or juice. (Same as: Miralax) Docusate No Notes: Memoria 3-02 (Same as: l 23:00: Colace) (Do Not Crush) Ancef No Notes: Memoria 3-02 (Same as l 18:00: Ancef) Insulin No Notes: Memoria Lispro 3-02 (Same as: l 05:02: Humalog ) Roll in palms of hands gently; Do not shake `vigorousl y. "Single Patient Use Only " WASTE: F/P - Black; E - Municipal Trash Bin Stable for 28 days at room temperatur e. Expires in days from ____Date Glucagon No 1 mg, Memoria 10-26 Route: IM, l 05:02: Drug form: Gilbert PDR/INJ, PRN, Dosing Weight 143.182, kg, PRN Blood Glucose Results, Start date: 10/25/17 23:02:00 SALOONKEEPER, Duration: 30 day, Stop date: 11/25/17 0:01:00 CDT Dextrose No 12.5 gm, Memor ia 50% Syringe 10-26 25 mL, l 05:02: Route: Alexi 00 IVP, Drug Form: INJ, Dosing Weight 143.182, kg, PRN, PRN Blood Glucose Results, Start date: 10/25/17 23:02:00 SALOONKEEPER, Duration: 30 day, Stop date: 11/25/17 0:01:00 CDT NS (Bolus) No 1,000 mL, Me moria IV 10-24 1,000 l 16:34: ml/hr, Infuse Over: 1 hr, Route: IV, 1,000, Drug form: INJ, ONCE, Priority: STAT, Dosing Weight 143.182 kg, Start date: 10/24/17 10:34:00 SALOONKEEPER, Stop date: 10/24/17 10:34:00 SALOONKEEPER insulin No Notes: Albertooria regular 10-24 (Same as: l human 13:40: Humulin R Alexi recombinant 00 U-500) 500 WASTE: F/P units/mL - Black; E injectable - solution Municipal Trash Bin (Do not shake) Insulin No Notes: Albertooria Lispro 10-23 (Same as: l 18:23: Humalog ) Roll in palms of hands gently; Do not shake `vigorousl y. "Single Patient Use Only " WASTE: F/P - Black; E - Municipal Trash Bin Stable for 28 days at room temperatur e. Expires in days from ____Date Glucagon No 1 mg, Memoria 2-27 Route: IM, l 18:23: Drug form: Alexi PDR/INJ, PRN, Dosing Weight 143.182, kg, PRN Blood Glucose Results, Start date: 10/23/17 12:23:00 SALOONKEEPER, Duration: 30 day, Stop date: 11/22/17 13:22:00 CDT Dextrose No 25 gm, 50 Shravan jennie 50% Syringe 2-27 mL, Route: l 18:23: IVP, Drug Form: INJ, Dosing Weight 143.182, kg, PRN, PRN Blood Glucose Results, Start date: 10/23/17 12:23:00 SALOONKEEPER, Duration: 30 day, Stop date: 11/22/17 13:22:00 CDT Phenergan No Notes: Memori a 2-27 (Same as: l 15:25: Phenergan) Famotidine No Notes: Memor ia 20 MG Oral 2-27 (Same as: l Tablet 15:25: Pepcid) Alexi [Pepcid] 00 Insulin No 60 Memoria regular 2-27 units) l 10:05: WASTE: F/P Alexi - Black; E - Municipal Trash Bin Stable for 28 days at room temperatur e Expires in days from ____Date calcium No Notes: Memoria carbonate 2-27 (Same As: l 08:25: Tums) Calcium Carbonate 500 mg = 200 mg elemental calcium Dose = mg calcium carbonate ( mg elemental calcium) Tums No 1,250 mg, Memoria 2-27 Route: l 07:52: CHEW, Drug form: CHEWTAB, ABXQ6H, Dosing Weight 143.182, kg, PRN Indigestio n, Start date: 10/23/17 1:52:00 SALOONKEEPER, Duration: 30 day, Stop date: 11/22/17 1:51:00 CDT acetaminoph No Notes: Max Memoria en 2-27 acetaminop l 04:00: hen 4000 Alexi 00 mg/day (4 gm/day). (Same as: Tylenol Extra Strength) Cefazolin No Notes: Memori a 10-23 (Same As: l 02:00: Ancef, Kefzol) MEDICATION WASTE Product Size: 1000 mg Product Wasted: ___ mg neostigmine No Route: IV, Memoria (ANES) 10-22 Drug form: l 22:02: INJ, ONCE, Stop date: 10/22/17 16:02:00 SALOONKEEPER glycopyrrol No Route: IV, Memoria ate (ANES) 10-22 Drug form: l 22:02: INJ, ONCE, Stop date: 10/22/17 16:02:00 SALOONKEEPER ondansetron No Route: IV, Memoria (ANES) 10-22 Drug form: l 21:55: INJ, ONCE, Stop date: 10/22/17 15:55:00 SALOONKEEPER acetaminoph No Route: IV, Memoria en (ANES) 10-22 Drug form: l 21:55: INJ, ONCE, Stop date: 10/22/17 15:55:00 SALOONKEEPER Lactated No 1,000 mL, Shravan jennie Ringers IV 10-22 Rate: 75 l 1,000 mL 21:29: ml/hr, Infuse over: 13.3 hr, Route: IV, Dosing Weight 143.182 kg, Total Volume: 1,000, Start date: 10/22/17 15:29:00 SALOONKEEPER, Duration: 30 day, Stop date: 11/21/17 15:28:00 CDT, 2.73, m2 Ondansetron No Notes: Shravan jennie 10-22 (Same as: l 21:16: Zofran) MEDICATION WASTE Product Size: 4 mg Product Wasted: ___ mg Flumazenil No Notes: Memor ia 10-22 (Same as: l 21:16: Romazicon) Naloxone No Notes: Memoria 10-22 Same as l 21:16: Narcan Oxycodone No Notes: Memori a 10-22 (Same as: l 21:16: Roxicodone ) Morphine No Notes: Memoria 10-22 (Same l 21:16: as:MORPhin e Sulfate) Insulin No Route: IV, Shravan jennie regular 10-22 Drug form: l (ANES) 20:50: INJ, ONCE, Stop date: 10/22/17 14:50:00 SALOONKEEPER norepinephr No Route: IV, Memoria ine (ANES) 10-22 Drug form: l 20:35: INJ, ONCE, Stop date: 10/22/17 14:35:00 SALOONKEEPER midazolam No Route: IV, Me moria (ANES) 10-22 Drug form: l 19:25: SOLN, ONCE, Stop date: 10/22/17 13:25:00 SALOONKEEPER rocuronium No Route: IV, M emoria (ANES) 10-22 Drug form: l 19:25: INJ, ONCE, Stop date: 10/22/17 13:25:00 SALOONKEEPER propofol No Route: IV, Mem oria (ANES) 10-22 Drug form: l 19:25: INJ, ONCE, Stop date: 10/22/17 13:25:00 SALOONKEEPER lidocaine No Route: IV, Me moria (ANES) 10-22 Drug form: l 19:25: INJ, ONCE, Stop date: 10/22/17 13:25:00 SALOONKEEPER fentaNYL No Route: IV, Mem oria (ANES) 10-22 Drug form: l 19:25: INJ, ONCE, Stop date: 10/22/17 13:25:00 SALOONKEEPER succinylcho No Route: IV, Memoria line (ANES) 10-22 Drug form: l 19:25: INJ, ONCE, Stop date: 10/22/17 13:25:00 SALOONKEEPER ceFAZolin No Route: IV, Me moria (ANES) 10-22 Drug form: l 19:20: INJ, ONCE, Stop date: 10/22/17 13:20:00 SALOONKEEPER Sodium No Route: IV, Memor ia Chloride 2-26 Total l 0.9% IV 18:23: Volume: Gilbert (ANES) 1000 00 1,000, mL Start date: 10/22/17 12:23:00 SALOONKEEPER, Stop date: 10/22/17 13:23:00 SALOONKEEPER Lactated No Route: IV, Mem oria Ringers 2-26 Total l Injection 18:23: Volume: Lelia nn IV (ANES) 00 1,000, 1000 mL Start date: 10/22/17 12:23:00 SALOONKEEPER, Stop date: 10/22/17 13:23:00 SALOONKEEPER carvedilol No Notes: Memor ia 2-25 Give with l 03:00: food. Gilbert 00 (Same As: Coreg) Regular No 60 Memoria Insulin, 2-24 units) l Human 500 22:30: WASTE: F/P He rmann UNT/ML 00 - Black; E Injectable - Solution Municipal Trash Bin Stable for 28 days at room temperatur e Expires in days from ____Date Regular No Notes: Memoria Insulin, 2-24 (Same as: l Human 500 18:30: Humulin R Her sullivan UNT/ML 00 U-500) Injectable WASTE: F/P Solution - Black; E - Municipal Trash Bin (Do not shake) Regular No 60 Memoria Insulin, 2-24 units) l Human 500 17:30: WASTE: F/P He rmann UNT/ML 00 - Black; E Injectable - Solution Municipal Trash Bin Stable for 28 days at room temperatur e Expires in days from ____Date Guanfacine No Notes: Memor ia 2-24 (Same as: l 15:00: Tenex) Non-Formul ministerio Drug ezetimibe No Notes: Memori a 2-24 (Same as: l 15:00: Zetia) Diltiazem No Notes: Memori a 2-24 (Same as: l 15:00: Cardizem CD) Before meals. DO NOT CRUSH. influenza No Notes: Memori a virus 2-24 (Same as: l vaccine, 15:00: Fluzone Khang n inactivated 00 Quadrivale nt, Fluarix Quadrivale nt) For 3 years of age and older (0.5 mL IM) Shake well before use Regular No 60 Memoria Insulin, 2-24 units) l Human 500 13:30: WASTE: F/P He rmann UNT/ML 00 - Black; E Injectable - Solution Municipal Trash Bin Stable for 28 days at room temperatur e Expires in days from ____Date Enoxaparin No Notes: Memor ia 2-24 (Same as: l 13:15: Lovenox) Gilbert Iohexol No Notes: Memoria 2-24 (Same l 12:47: as:Omnipaq Alexi ue 350). WASTE: F/P - Black; E - Municipal Trash Bin Acetaminoph No Notes: Max Memoria en 2-24 acetaminop l 06:00: hen 4000 Alexi 00 mg/day (4 gm/day). (Same as: Tylenol Extra Strength) Robaxin No Notes: Memoria 2-24 (Same l 06:00: as:Robaxin Alexi 00 ) Tramadol No Notes: Not Mem oria 2-24 to exceed l 06:00: 400mg/day. Alexi 00 (Same As: Ultram) Metformin No 1,000 mg = Me moria hydrochlori 2-24 2 tab, PO, l de 500 MG 03:59: BID Alexi Oral Tablet Morphine No 4 mg, Memoria 2-24 Route: l 03:46: IVP, ONCE, Alexi Dosing Weight 143.182, kg, Start date: 10/19/17 21:46:00 SALOONKEEPER, Stop date: 10/19/17 21:46:00 SALOONKEEPER carvedilol No Notes: Memor ia 2-24 Give with l 03:00: food. Alexi 00 (Same As: Coreg) sennosides, No Notes: Shravan jennie PENITENTIARY 2-24 (Same as: l 03:00: Senokot) Alexi 00 Morphine 2017-0 No 4 mg, Memoria 2-24 Route: l 02:08: IVP, ONCE, Dosing Weight 143.182, kg, Start date: 10/19/17 20:08:00 SALOONKEEPER, Stop date: 10/19/17 20:08:00 SALOONKEEPER Oxycodone 2017-0 No Notes: Memori a Hydrochlori 2-24 (Same as: l de 5 MG 01:24: Roxicodone Herm deysi Oral Tablet 00 ) Glucagon No 1 mg, Memoria 2-24 Route: IM, l 01:23: Drug form: PDR/INJ, PRN, Dosing Weight 143.182, kg, PRN Blood Glucose Results, Start date: 10/19/17 19:23:00 SALOONKEEPER, Duration: 30 day, Stop date: 11/18/17 20:22:00 CDT Dextrose No 25 gm, 50 Shravan jennie 50% Syringe 2-24 mL, Route: l 01:23: IVP, Drug Form: INJ, Dosing Weight 143.182, kg, PRN, PRN Blood Glucose Results, Start date: 10/19/17 19:23:00 SALOONKEEPER, Duration: 30 day, Stop date: 11/18/17 20:22:00 CDT Regular 0 No 50 unit, Memori a Insulin, 2-24 SUB-Q, l Human 500 01:18: Before Khang n UNT/ML 00 Dinner, 0 Injectable Refill(s) Solution Guanfacine 0 No 1 mg, PO, Me moria 2-24 BID, 0 l 01:18: Refill(s) Gilbert 00 ezetimibe 0 No 10 mg = 1 Mem oria 2-24 tab, PO, l 01:18: Daily, # Alexi 00 30 tab, 0 Refill(s) D3 1000 0 No 1,000 Memoria 2-24 IntlUnit, l 01:18: PO, BID, 0 Gilbert 00 Refill(s) diltiazem 0 No 300 mg = 1 Me moria 300 mg/24 2-24 cap, PO, l hours oral 01:18: Daily, # Her sullivan capsule, 00 30 cap, 0 extended Refill(s) release Metformin 2018-0 No 500 mg, Memor ia 2-24 PO, l 01:18: BID-Meals, Gilbert 00 0 Refill(s) carvedilol No 25 mg = 1 Me moria 25 mg oral 2-24 tab, PO, l tablet 01:18: Q12H, # 60 Lelia nn 00 tab, 0 Refill(s) Aspirin 81 No 81 mg = 1 Me moria MG Enteric 2-24 tab, PO, l Coated 01:18: Daily, # Gilbert Tablet 00 90 tab, 3 Refill(s) Plavix No 75 mg, PO, Memor ia 2-24 Daily, 0 l 01:18: Refill(s) Gilbert 00 Ondansetron No Notes: Shravan jennie 2-24 (Same as: l 01:15: Zofran) MEDICATION WASTE Product Size: 4 mg Product Wasted: ___ mg Saline No Notes: Memoria Flush 0.9% 2-23 (Same as: l 22:14: BD Posiflush) Morphine No Notes: Memoria 2-23 (Same l 22:14: as:MORPhin e Sulfate) Ondansetron No Notes: Shravan jennie 2-23 (Same as: l 22:14: Zofran) MEDICATION WASTE Product Size: 4 mg Product Wasted: ___ mg cholecalcif Yes 2000U Q.5D Take 2,000 [place] trever, 2-19 Units by Methodi vitamin D3, 12:15: mouth 2 st (VITAMIN 45 (two) D3) 2,000 times a unit day. capsule capsule carvedilol Yes 50mg Q.5D Take 50 mg [place] (COREG) 25 2-19 by mouth 2 Met h[place] MG tablet 10:39: (two) st 52 times a day with meals. metFORMIN Yes 1000mg Q.5D Take 1,000 [place] (GLUCOPHAGE 2-19 mg by Methodi ) 500 MG 10:39: mouth 2 st tablet 52 (two) times a day with meals. ezetimibe Yes 10mg QD Take 10 mg [place] (ZETIA) 10 2-19 by mouth Metho di mg tablet 10:39: nightly. st 52 multivitami 2018-0 Yes 1{tbl} QD Take 1 [place] n 2-19 tablet by Methodi (THERAGRAN) 10:39: mouth st tablet 52 every evening. omega-3 2018-0 Yes 1000mg Q.5D Take 1,000 [place] fatty 2-19 mg by Methodi acids-vitam 10:39: mouth 2 st in E (FISH 52 (two) OIL) 1,000 times a mg capsule day. VIT A/VIT 2018-0 Yes 1{tbl} Q.5D Take 1 [place] C/VIT 2-19 tablet by Methodi E/ZINC/BELINDA 10:39: mouth 2 st ER (OCUVITE 52 (two) PRESERVISIO times a N ORAL) day. Bacillus 2018-0 Yes 1{capsu QD Take 1 [place] coagulans 2-19 le} capsule by Meth marian (PROBIOTIC, 10:39: mouth st B. 52 daily. COAGULANS,) 10 billion cell capsule,del ayed release(DR/ EC) clopidogrel 2018-0 Yes 75mg QD Take 75 mg [place] (PLAVIX) 75 2-19 by mouth Meth marian mg tablet 10:39: daily. st 52 aspirin 2018-0 Yes 81mg QD Take 81 mg [place] (ECOTRIN) 2-19 by mouth Method i 81 MG 10:39: daily. st enteric 52 coated tablet guanFACINE 2018-0 Yes 1mg Q.5D Take 1 mg [place] (TENEX) 1 2-19 by mouth 2 Meth marian MG tablet 10:39: (two) st 52 times a day. FOLIC 2018-0 Yes 1{tbl} QD Take 1 Chambers ACID/MULTIV 2-19 tablet by Met lopes IT,IRON,MIN 10:39: mouth st ER (CENTRUM 52 daily. ORAL) insulin 2018-0 Yes 50U QD Inject 50 [place] regular 2-19 Units Methodi human U-500 10:39: under the s t (HumuLIN R 52 skin daily U-500) 500 before unit/mL dinner. CONCENTRATE D injection insulin 2018-0 Yes 75U QD Inject 75 [place] regular 2-19 Units Methodi human U-500 10:39: under the s t (HumuLIN R 52 skin daily U-500) 500 before unit/mL lunch. CONCENTRATE D injection insulin Yes 125U QD Inject 125 [place] regular 2-19 Units Methodi human U-500 10:39: under the s t (HumuLIN R 52 skin daily U-500) 500 before unit/mL breakfast. CONCENTRATE D injection DEXTROSE Yes 1{tbl} Q24H Take 1 [place] on (GLUCOSE 2-19 tablet by Method i ORAL) 10:39: mouth st 52 daily as needed. CARTIA XT Yes 300mg QD Take 300 Josefa ston 300 mg 24 8-11 mg by Methodi hr capsule 00:00: mouth st 00 daily. testosteron Yes 200mg Q14D Inject 200 Chambers e cypionate 8-11 mg into Metho di (DEPOTESTOT 00:00: the st ERONE 00 shoulder, CYPIONATE) thigh, or 200 mg/mL buttocks injection every 14 (fourteen) days. Immunizations Ordered Immunization Filled Immunization Date Status Commen ts Source Name Name OrderBorder SARS-CoV-2 2020-12-05 Completed MD Griffin wells Vaccination 00:00:00 OrderBorder SARS-CoV-2 2020-11-14 Completed MD Moya rsdayne Vaccination 00:00:00 Vital Signs Vital Name Observation Time Observation Value Comments Source WEIGHT 2020-12-06 124 kg 15:40:00 WEIGHT 2020-12-06 124 kg 15:40:00 WEIGHT 2020-11-24 125.2 kg 13:26:00 WEIGHT 2020-11-24 125.2 kg 13:26:00 WEIGHT 2020-11-11 125.4 kg 08:21:00 WEIGHT 2020-11-11 125.4 kg 08:21:00 WEIGHT 2020-10-27 125 kg 13:20:55 WEIGHT 2020-10-27 125 kg 13:20:55 HEIGHT 2020-09-30 180.5 cm 10:34:00 WEIGHT 2020-09-30 134.6 kg 10:34:00 HEIGHT 2020-09-30 180.5 cm 10:34:00 WEIGHT 2020-09-30 134.6 kg 10:34:00 WEIGHT 2020-09-08 134.6 kg 14:38:00 WEIGHT 2020-09-08 134.6 kg 14:38:00 WEIGHT 2020-08-26 132.1 kg 09:24:00 WEIGHT 2020-08-26 132.1 kg 09:24:00 HEIGHT 2020-08-10 180.5 cm 13:06:11 2020-08-10 137.5 kg 13:06:11 HEIGHT 2020-08-10 180.5 cm 13:06:11 2020-08-10 137.5 kg 13:06:11 2020-07-29 136.4 kg 13:31:00 2020-07-29 136.4 kg 13:31:00 HEIGHT 2020-07-09 180.5 cm 09:46:00 2020-07-09 134.5 kg 09:46:00 HEIGHT 2020-07-09 180.5 cm 09:46:00 2020-07-09 134.5 kg 09:46:00 HEIGHT 2020-06-28 180.5 cm 09:13:00 2020-06-28 131 kg 09:13:00 HEIGHT 2020-06-28 180.5 cm 09:13:00 2020-06-28 131 kg 09:13:00 2020-05-28 131.9 kg 14:37:00 2020-05-28 131.9 kg 14:37:00 HEIGHT 2020-05-27 180.5 cm 09:17:00 2020-05-27 130.3 kg 09:17:00 HEIGHT 2020-05-27 180.5 cm 09:17:00 2020-05-27 130.3 kg 09:17:00 2020-04-28 132.2 kg 13:23:00 2020-04-28 132.2 kg 13:23:00 HEIGHT 2020-04-16 180.5 cm 10:28:00 2020-04-16 131.8 kg 10:28:00 HEIGHT 2020-04-16 180.5 cm 10:28:00 2020-04-16 131.8 kg 10:28:00 2020-04-15 130 kg 06:48:00 2020-04-15 130 kg 06:48:00 2020-04-07 131.6 kg 13:18:00 2020-04-07 131.6 kg 13:18:00 2020-04-01 132.7 kg 14:39:04 WEIGHT 2020-04-01 132.7 kg 14:39:04 HEIGHT 2020-04-01 180.5 cm 10:08:00 WEIGHT 2020-04-01 131 kg 10:08:00 HEIGHT 2020-04-01 180.5 cm 10:08:00 WEIGHT 2020-04-01 131 kg 10:08:00 WEIGHT 2020-03-05 132.8 kg 15:13:36 WEIGHT 2020-03-05 132.8 kg 15:13:36 WEIGHT 2020-02-25 138.1 kg 00:00:00 WEIGHT 2020-02-25 138.1 kg 00:00:00 WEIGHT 2020-01-28 130.3 kg 00:00:00 WEIGHT 2020-01-28 130.3 kg 00:00:00 Systolic blood 2020-12-15 162 mm[Hg] [facility] 08:10[facility]00 [facility] Diastolic blood 2020-12-15 87 mm[Hg] [facility] 08:10:00 [facility] Heart Rate 2020-12-15 79 /min [facility] 08:10:00 [place] [facility] Systolic blood 2020-12-06 112 mm[Hg] MD To pressure 20:40:00 Diastolic blood 2020-12-06 81 mm[Hg] MD To pressure 20:40:00 Heart rate 2020-12-06 73 /min MD oT 20:40:00 Body temperature 2020-12-06 36.61 Abi MD To 20:40:00 Respiratory rate 2020-12-06 16 /min MD To 20:40:00 Body weight 2020-12-06 124 kg MD To 20:40:00 BMI 2020-12-06 38.06 kg/m2 MD To 20:40:00 Oxygen saturation 2020-12-06 94 /min MD Mali lowe in Arterial blood 20:40:00 by Pulse oximetry Systolic blood 2020-12-01 119 mm[Hg] [facility] 08:32:00 [facility] Diastolic blood 2020-12-01 68 mm[Hg] [facility] 08:32:00 [facility] Heart Rate 2020-12-01 86 /min [facility] 08:32:00 [facility] Systolic blood 2020-11-17 158 mm[Hg] [facility] 15:21:00 [facility] Diastolic blood 2020-11-17 77 mm[Hg] [facility] 15:21:00 [facility] Heart Rate 2020-11-17 90 /min [facility] 15:21:00 [facility] Systolic blood 2020-11-03 104 mm[Hg] [place] [facility] [place] [facility] 11:40:00 Position: [facility] S[facility] Diastolic blood 2020-11-03 66 mm[Hg] Location: [place]; [facility] 11:40:00 Position: [facility] Heart Rate 2020-11-03 96 /min [facility] 11:40:00 [facility] Systolic blood 2020-10-22 138 mm[Hg] [facility] 08:08:00 [facility] Diastolic blood 2020-10-22 74 mm[Hg] [facility] 08:08:00 [facility] Heart Rate 2020-10-22 77 /min [facility] 08:08:00 [place] [facility] Respitory Rate 2020-10-19 [facility] 22:15:00 Systolic (mm Hg) 2020-10-19 [facility] 22:15:00 Diastolic (mm Hg) 2020-10-19 [facility] ermann 22:15:00 Respitory Rate 2020-10-19 [facility] 22:00:00 Systolic (mm Hg) 2020-10-19 [facility] 22:00:00 Diastolic (mm Hg) 2020-10-19 [facility] H ermann 22:00:00 Respitory Rate 2020-10-19 [facility] 21:45:00 Systolic (mm Hg) 2020-10-19 [facility] 21:45:00 Diastolic (mm Hg) 2020-10-19 [facility] ermann 21:45:00 Height 2020-10-08 180.34 cm [facility] Khang n 14:55:00 Weight 2020-10-08 [facility] Khang n 14:55:00 BMI Calculated 2020-10-08 [facility] 14:55:00 Systolic blood 2020-10-06 105 mm[Hg] [facility] 09:33:00 [facility] Diastolic blood 2020-10-06 65 mm[Hg] [facility] 09:33:00 [facility] Heart Rate 2020-10-06 82 /min [facility] 09:33:00 [facility] Body height 2020-09-30 180.5 cm MD To 16:34:00 Temperature Oral 2020-09-16 97.6 F [facility] rmann (F) 13:25:00 Heart Rate 2020-09-16 [facility] Khang n 13:25:00 Respitory Rate 2020-09-16 [facility] 13:25:00 Systolic (mm Hg) 2020-09-16 [facility] 13:25:00 Diastolic (mm Hg) 2020-09-16 [facility] 13:25:00 Temperature Oral 2020-09-16 98.5 F [facility] He rmann (F) 10:43:00 Heart Rate 2020-09-16 [facility] Khang n 10:43:00 Respitory Rate 2020-09-16 [facility] 10:43:00 Systolic (mm Hg) 2020-09-16 [facility] 10:43:00 Diastolic (mm Hg) 2020-09-16 [facility] 10:43:00 Temperature Oral 2020-09-16 98.7 F [facility] He rmann (F) 06:33:00 Heart Rate 2020-09-16 [facility] Khang n 06:33:00 Respitory Rate 2020-09-16 [facility] 06:33:00 Systolic (mm Hg) 2020-09-16 [facility] 06:33:00 Diastolic (mm Hg) 2020-09-16 [facility] 06:33:00 Temperature Oral 2020-09-13 97.9 F [facility] He rmann (F) 09:31:00 Heart Rate 2020-09-13 [facility] Khang n 09:31:00 Systolic (mm Hg) 2020-09-13 [facility] 09:31:00 Diastolic (mm Hg) 2020-09-13 [facility] 09:31:00 Temperature Oral 2020-09-13 97.7 F [facility] He rmann (F) 05:55:00 Heart Rate 2020-09-13 [facility] Khang n 05:55:00 Respitory Rate 2020-09-13 [facility] 05:[facility]:00 Systolic (mm Hg) 2020-09-13 [facility] 05:55:00 Diastolic (mm Hg) 2020-09-13 [facility] 05:55:00 Temperature Oral 2020-09-13 98.2 F [facility] (F) 02:00:00 Heart Rate 2020-09-13 [facility] 02:00:00 Respitory Rate 2020-09-13 [facility] 02:00:00 Systolic (mm Hg) 2020-09-13 [facility] 02:00:00 Diastolic (mm Hg) 2020-09-13 [facility] ermann 02:00:00 Respitory Rate 2020-09-12 [facility] 20:25:00 Height 2020-09-10 180.34 cm [facility] Quiñonez n 22:35:00 Weight 2020-09-10 [facility] Schutlean n 22:35:00 BMI Calculated 2020-09-10 [facility] deysi 22:35:00 Systolic blood 2020-09-10 149 mm[Hg] [facility] 08:41:00 [place] [facility] Diastolic blood 2020-09-10 83 mm[Hg] [facility] 08:41:00 [place] [facility] Heart Rate 2020-09-10 82 /min [facility] 08:41:00 [place] [facility] Systolic blood 2020-07-14 158 mm[Hg] [facility] 08:28:00 [place] [facility] Diastolic blood 2020-07-14 77 mm[Hg] [facility] 08:28:00 [place] [facility] Heart Rate 2020-07-14 90 /min [facility] 08:28:00 [place] [facility] Systolic blood 2020-04-14 161 mm[Hg] [facility] 08:37:00 [place] [facility] Diastolic blood 2020-04-14 79 mm[Hg] [facility] 08:37:00 [place] [facility] Heart Rate 2020-04-14 80 /min [facility] 08:37:00 [place] [facility] Systolic blood 2020-03-10 131 mm[Hg] [facility] 11:20:00 [place] [facility] Diastolic blood 2020-03-10 81 mm[Hg] [facility] 11:20:00 [place] [facility] Heart Rate 2020-03-10 82 /min [facility] 11:20:00 [place] [facility] Systolic blood 2020-01-14 128 mm[Hg] [facility] 08:46:00 [place] [facility] Diastolic blood 2020-01-14 74 mm[Hg] [facility] 08:46:00 [place] [facility] Heart Rate 2020-01-14 82 /min [facility] 08:46[facility]00 [place] [facility] s Systolic blood 2019-10-22 123 mm[Hg] [facility] 08:02:00 [place] [facility] Diastolic blood 2019-10-22 79 mm[Hg] [facility] 08:02:[facility] [place] [facility] Body height 2019-10-22 70 [in_us] [facility] 08:02:00 [place] [facility] Weight 2019-10-22 296 [lb_av] [facility] 08:02:00 [place] [facility] Body mass index 2019-10-22 42.47 kg/m2 [place] o f (BMI) [Ratio] 08:02:00 [place] [facility] Heart Rate 2019-10-22 77 /min [facility] 08:02:00 [place] [facility] Systolic blood 2019-09-24 178 mm[Hg] [facility] 08:24:00 [place] [facility] Diastolic blood 2019-09-24 105 mm[Hg] [facility] 08:24:00 [place] [facility] Body temperature 2019-09-24 97.6 [degF] [facility] 08:24:00 [place] [facility] Heart Rate 2019-09-24 70 /min [facility] 08:24:00 [place] [facility] BP Systolic 2019-08-13 192 mm[Hg] [facility] 08:47:00 [place] [facility] BP Diastolic 2019-08-13 94 mm[Hg] [facility] 08:47:00 [place] [facility] Height 2019-08-13 70 [in_us] [facility] 08:47:00 [place] [facility] Weight 2019-08-13 296 [lb_av] [facility] 08:47:00 [place] [facility] Body Mass Index 2019-08-13 42.47 kg/m2 [facility] Calculated 08:47:00 [place] [facility] Temperature 2019-08-13 97.5 [degF] Method: Oral [facility] 08:47:00 [place] [facility] Heart Rate 2019-08-13 72 /min [facility] 08:47:00 [place] [facility] BP Systolic 2019-07-30 164 mm[Hg] [facility] 09:09:00 [place] [facility] BP Diastolic 2019-07-30 83 mm[Hg] [facility] 09:09:00 [place] [facility] Temperature 2019-07-30 97.7 [degF] [facility] 09:09:00 [place] [facility] Heart Rate 2019-07-30 75 /min [facility] 09:09:00 [place] [facility] BP Systolic 2019-07-16 152 mm[Hg] [facility] 08:40:00 [place] [facility] BP Diastolic 2019-07-16 77 mm[Hg] [facility] 08:40:00 [place] [facility] Height 2019-07-16 70 [in_us] [facility] 08:40:00 [place] [facility] Weight 2019-07-16 296 [lb_av] [facility] 08:40:00 [place] [facility] Body Mass Index 2019-07-16 42.47 kg/m2 [facility] Calculated 08:40:00 [place] [facility] Temperature 2019-07-16 98.3 [degF] Method: Oral [facility] 08:40:00 [place] [facility] Heart Rate 2019-07-16 80 /min [facility] 08:40:00 [place] [facility] BP Systolic 2019-07-02 121 mm[Hg] [facility] 08:14:00 [place] [facility] BP Diastolic 2019-07-02 69 mm[Hg] [facility] 08:14:00 [place] [facility] Height 2019-07-02 70 [in_us] [facility] 08:14:00 [place] [facility] Weight 2019-07-02 296 [lb_av] [facility] 08:14:00 [place] [facility] Body Mass Index 2019-07-02 42.47 kg/m2 [facility] Calculated 08:14:00 [place] [facility] Temperature 2019-07-02 98.2 [degF] Method: Oral [facility] 08:14:00 [place] [facility] Heart Rate 2019-07-02 76 /min [facility] 08:14:00 [place] [facility] BP Systolic 2019-06-18 135 mm[Hg] [facility] 08:28:00 [place] [facility] BP Diastolic 2019-06-18 74 mm[Hg] [facility] 08:28:00 [place] [facility] Height 2019-06-18 70 [in_us] [facility] 08:28:00 [place] [facility] Weight 2019-06-18 296 [lb_av] [facility] 08:28:00 [place] [facility] Body Mass Index 2019-06-18 42.47 kg/m2 [facility] Calculated 08:28:00 [place] [facility] Temperature 2019-06-18 98.1 [degF] Method: Oral [facility] 08:28:00 [place] [facility] Heart Rate 2019-06-18 79 /min [facility] 08:28:00 [place] [facility] Temperature Oral 2019-06-05 97.6 F [facility] He rmann (F) 20:20:00 Heart Rate 2019-06-05 Eliud Schultean n 20:20:00 Respitory Rate 2019-06-05 [facility] 20:20:00 Systolic (mm Hg) 2019-06-05 [facility] 20:20:00 Diastolic (mm Hg) 2019-06-05 [facility] 20:20:00 Temperature Oral 2019-06-05 97.7 F [facility] (F) 15:27:00 Heart Rate 2019-06-05 [facility] 15:27:00 Respitory Rate 2019-06-05 [facility] 15:27:00 Systolic (mm Hg) 2019-06-05 [facility] 15:27:00 Diastolic (mm Hg) 2019-06-05 [facility] 15:27:00 Temperature Oral 2019-06-05 98.4 F [facility] (F) 13:07:00 Heart Rate 2019-06-05 [facility] 13:07:00 Respitory Rate 2019-06-05 [facility] 13:07:00 Systolic (mm Hg) 2019-06-05 [facility] 13:07:00 Diastolic (mm Hg) 2019-06-05 [facility] Randolph ermann 13:07:00 Height 2019-06-03 182.88 cm [facility] 12:04:00 Weight 2019-06-03 [facility] 12:04:00 BMI Calculated 2019-06-03 [facility] 12:04:00 BP Systolic 2019-05-27 118 mm[Hg] Location: [facility] 09:13:00 Position: [place] [facility] BP Diastolic 2019-05-27 66 mm[Hg] Location: [facility] 09:13:00 Position: [place] [facility] Height 2019-05-27 70 [in_us] [facility] 09:13:00 [place] [facility] Weight 2019-05-27 296 [lb_av] [facility] 09:13:00 [place] [facility] Body Mass Index 2019-05-27 42.47 kg/m2 [facility] Calculated 09:13:00 [place] [facility] Temperature 2019-05-27 97.8 [degF] Method: Oral [facility] 09:13:00 [place] [facility] Heart Rate 2019-05-27 74 /min [facility] 09:13:00 [place] [facility] Temperature Oral 2019-05-24 98.2 F [facility] (F) 15:42:00 Temperature Oral 2019-05-24 99.9 F [facility] (F) 12:47:00 Heart Rate 2019-05-24 [facility] 12:47:00 Respitory Rate 2019-05-24 [facility] 12:47:00 Systolic (mm Hg) 2019-05-24 [facility] Zain rmann 12:47:00 Diastolic (mm Hg) 2019-05-24 [facility] 12:47:00 Temperature Oral 2019-05-24 99.0 F [facility] Zain rmann (F) 09:39:00 Heart Rate 2019-05-24 Eliud Schultean n 09:39:00 Respitory Rate 2019-05-24 [facility] 09:39:00 Systolic (mm Hg) 2019-05-24 [facility] 09:39:00 Diastolic (mm Hg) 2019-05-24 [facility] ermann 09:39:00 Heart Rate 2019-05-24 [facility] 04:58:00 Respitory Rate 2019-05-24 [facility] 04:58:00 Systolic (mm Hg) 2019-05-24 [facility] Zain rmann 04:58:00 Diastolic (mm Hg) 2019-05-24 [facility] Randolph ermann 04:58:00 Weight 2019-05-22 Eliud Quiñonez n 16:26:00 BMI Calculated 2019-05-22 [facility] Eris deysi 16:26:00 Height 2019-05-21 177.8 cm [facility] Khang n 16:29:00 BP Systolic 2019-05-21 139 mm[Hg] [facility] 10:08:00 [place] [facility] BP Diastolic 2019-05-21 73 mm[Hg] [facility] 10:08:00 [place] [facility] Weight 2019-05-21 296 [lb_av] [facility] 10:08:00 [place] [facility] Body Mass Index 2019-05-21 42.47 kg/m2 [facility] Calculated 10:08:00 [place] [facility] Temperature 2019-05-21 97.5 [degF] [facility] 10:08:00 [place] [facility] Heart Rate 2019-05-21 70 /min [facility] 10:08:00 [place] [facility] BP Systolic 2019-04-30 110 mm[Hg] [facility] 08:42:00 [place] [facility] BP Diastolic 2019-04-30 64 mm[Hg] [facility] 08:42:00 [place] [facility] Temperature 2019-04-30 97.8 [degF] [facility] 08:42:00 [place] [facility] Heart Rate 2019-04-30 76 /min [facility] 08:42:00 [place] [facility] BP Systolic 2019-04-02 122 mm[Hg] [facility] 08:33:00 [place] [facility] BP Diastolic 2019-04-02 74 mm[Hg] [facility] 08:33:00 [place] [facility] Temperature 2019-04-02 98 [degF] [facility] 08:33:00 [place] [facility] Heart Rate 2019-04-02 69 /min [facility] 08:33:00 [place] [facility] BP Systolic 2019-03-05 144 mm[Hg] [facility] 08:45:00 [place] [facility] BP Diastolic 2019-03-05 73 mm[Hg] [facility] 08:45:00 [place] [facility] Height 2019-03-05 70 [in_us] [facility] 08:45:00 [place] [facility] Weight 2019-03-05 265 [lb_av] [facility] 08:45:00 [place] [facility] Body Mass Index 2019-03-05 38.02 kg/m2 [facility] Calculated 08:45:00 [place] [facility] Temperature 2019-03-05 97.6 [degF] [facility] 08:45:00 [place] [facility] Heart Rate 2019-03-05 72 /min [facility] 08:45:00 [place] [facility] BP Systolic 2019-02-19 148 mm[Hg] [facility] 08:40:00 [place] [facility] BP Diastolic 2019-02-19 78 mm[Hg] [facility] 08:40:00 [place] [facility] Temperature 2019-02-19 97.4 [degF] [place] of 08:40:00 [place] [facility] Heart Rate 2019-02-19 68 /min [place] of 08:40:00 [place] [facility] BP Systolic 2019-02-05 123 mm[Hg] [facility] 09:15:00 [place] [facility] BP Diastolic 2019-02-05 68 mm[Hg] [facility] 09:15:00 [place] [facility] Temperature 2019-02-05 97.5 [degF] [facility] 09:15:00 [place] [facility] Heart Rate 2019-02-05 77 /min [facility] 09:15:00 [place] [facility] BP Systolic 2019-01-29 132 mm[Hg] [facility] 08:26:00 [place] [facility] BP Diastolic 2019-01-29 77 mm[Hg] [facility] 08:26:00 [place] [facility] Temperature 2019-01-29 97.8 [degF] [facility] 08:26:00 [place] [facility] Heart Rate 2019-01-29 77 /min [facility] 08:26:00 [place] [facility] BP Systolic 2019-01-22 138 mm[Hg] [facility] 09:10:00 [place] [facility] BP Diastolic 2019-01-22 77 mm[Hg] [facility] 09:10:00 [place] [facility] Temperature 2019-01-22 97.4 [degF] [facility] 09:10:00 [place] [facility] Heart Rate 2019-01-22 72 /min [facility] 09:10:00 [place] [facility] BP Systolic 2019-01-15 117 mm[Hg] [facility] 09:45:00 [place] [facility] BP Diastolic 2019-01-15 69 mm[Hg] [facility] 09:45:00 [place] [facility] Temperature 2019-01-15 97.9 [degF] [facility] 09:45:00 [place] [facility] Heart Rate 2019-01-15 70 /min [facility] 09:45:00 [place] [facility] BP Systolic 2019-01-08 130 mm[Hg] [facility] 09:49:00 [place] [facility] BP Diastolic 2019-01-08 74 mm[Hg] [facility] 09:49:00 [place] [facility] Temperature 2019-01-08 98 [degF] [facility] 09:49:00 [place] [facility] Heart Rate 2019-01-08 64 /min [facility] 09:49:00 [place] [facility] Systolic (mm Hg) 2019-01-04 [facility] 12:30:00 Diastolic (mm Hg) 2019-01-04 [facility] 12:30:00 Respitory Rate 2019-01-04 [facility] 12:30:00 Heart Rate 2019-01-04 [facility] 12:30:00 Temperature Oral 2019-01-04 98.9 F [facility] (F) 12:30:00 Temperature Oral 2019-01-04 98.5 F [facility] (F) 08:51:00 Heart Rate 2019-01-04 [facility] 08:51:00 Systolic (mm Hg) 2019-01-04 [facility] 08:51:00 Diastolic (mm Hg) 2019-01-04 [facility] 08:51:00 Respitory Rate 2019-01-04 [facility] 08:51:00 Systolic (mm Hg) 2019-01-04 [facility] 05:02:00 Diastolic (mm Hg) 2019-01-04 [facility] 05:02:00 Respitory Rate 2019-01-04 [facility] 05:02:00 Heart Rate 2019-01-04 [facility] 05:02:00 Temperature Oral 2019-01-04 98.4 F [facility] (F) 05:02:00 BMI Calculated 2019-01-02 [facility] 16:21:00 Weight 2019-01-02 [facility] 16:21:00 BP Systolic 2019-01-01 127 mm[Hg] [facility] 08:20:00 [place] [facility] BP Diastolic 2019-01-01 68 mm[Hg] [facility] 08:20:00 [place] [facility] Temperature 2019-01-01 97.8 [degF] [facility] 08:20:00 [place] [facility] Heart Rate 2019-01-01 68 /min [facility] 08:20:00 [place] [facility] BMI Calculated 2018-12-31 [facility] 19:37:00 Weight 2018-12-31 [facility] 19:37:00 Height 2018-12-31 179.5 cm [facility] 19:37:00 Systolic (mm Hg) 2018-12-31 [facility] 19:37:00 Diastolic (mm Hg) 2018-12-31 [facility] 19:37:00 Temperature Oral 2018-12-31 99.3 F [facility] (F) 19:37:00 Respitory Rate 2018-12-31 [facility] 19:37:00 Heart Rate 2018-12-31 [facility] 19:37:00 Height 2018-12-31 181.61 cm [facility] 15:33:00 BP Systolic 2018 122 mm[Hg] [facility] 09:31:00 [place] [facility] BP Diastolic 2018 65 mm[Hg] [facility] 09:31:00 [place] [facility] Temperature 2018 97.9 [degF] [facility] 09:31:00 [place] [facility] Heart Rate 2018 71 /min [facility] 09:31:00 [place] [facility] Systolic (mm Hg) 2018-12-23 [facility] 16:15:00 Diastolic (mm Hg) 2018-12-23 [facility] 16:15:00 Respitory Rate 2018-12-23 [facility] 16:15:00 Heart Rate 2018-12-23 [facility] 16:15:00 Temperature Oral 2018-12-23 98.3 F [facility] (F) 16:15:00 Temperature Oral 2018-12-23 99.0 F [facility] (F) 13:40:00 Heart Rate 2018-12-23 [facility] 13:40:00 Systolic (mm Hg) 2018-12-23 [facility] 13:40:00 Diastolic (mm Hg) 2018-12-23 [facility] 13:40:00 Respitory Rate 2018-12-23 [facility] 13:40:00 Systolic (mm Hg) 2018-12-23 [facility] 10:17:00 Diastolic (mm Hg) 2018-12-23 [facility] 10:17:00 Heart Rate 2018-12-23 [facility] 10:17:00 Respitory Rate 2018-12-23 [facility] 10:17:00 Temperature Oral 2018-12-23 98.6 F [facility] (F) 10:17:00 Weight 2018-12-12 [facility] 15:50:00 BMI Calculated 2018-12-12 [facility] 15:50:00 Height 2018-12-12 180.34 cm [facility] 15:50:00 BP Systolic 2018-12-04 102 mm[Hg] [facility] 09:00:00 [place] [facility] BP Diastolic 2018-12-04 67 mm[Hg] [facility] 09:00:00 [place] [facility] Temperature 2018-12-04 97.7 [degF] [facility] 09:00:00 [place] [facility] Heart Rate 2018-12-04 70 /min [facility] 09:00:00 [place] [facility] BP Systolic 2018-11-20 123 mm[Hg] [facility] 13:28:00 [place] [facility] BP Diastolic 2018-11-20 73 mm[Hg] [facility] 13:28:00 [place] [facility] Temperature 2018-11-20 97.9 [degF] [facility] 13:28:00 [place] [facility] Heart Rate 2018-11-20 86 /min [facility] 13:28:00 [place] [facility] BP Systolic 2018-11-06 103 mm[Hg] [facility] 10:00:00 [place] [facility] BP Diastolic 2018-11-06 63 mm[Hg] [facility] 10:00:00 [place] [facility] Temperature 2018-11-06 98 [degF] [facility] 10:00:00 [place] [facility] Heart Rate 2018-11-06 75 /min [facility] 10:00:00 [place] [facility] Systolic (mm Hg) 2018-10-26 [facility] 18:01:00 Diastolic (mm Hg) 2018-10-26 [facility] 18:01:00 Respitory Rate 2018-10-26 [facility] 18:01:00 Heart Rate 2018-10-26 [facility] 18:01:00 Systolic (mm Hg) 2018-10-26 [facility] 13:56:00 Diastolic (mm Hg) 2018-10-26 [facility] 13:56:00 Respitory Rate 2018-10-26 [facility] 13:56:00 Temperature Oral 2018-10-26 97.8 F [facility] (F) 13:56:00 Heart Rate 2018-10-26 [facility] 13:56:00 Systolic (mm Hg) 2018-10-26 [facility] 10:16:00 Diastolic (mm Hg) 2018-10-26 [facility] 10:16:00 Respitory Rate 2018-10-26 [facility] 10:16:00 Heart Rate 2018-10-26 [facility] 10:16:00 Temperature Oral 2018-10-26 98.4 F [facility] (F) 10:16:00 Temperature Oral 2018-10-26 98.2 F [facility] (F) 05:09:00 Weight 2018-10-24 [facility] 17:04:00 BMI Calculated 2018-10-24 [facility] 17:04:00 Height 2018-10-10 181.61 cm [facility] 16:15:00 BP Systolic 2018-09-25 146 mm[Hg] [facility] 08:47:00 [place] [facility] BP Diastolic 2018-09-25 87 mm[Hg] [facility] 08:47:00 [place] [facility] Height 2018-09-25 70 [in_us] [facility] 08:47:00 [place] [facility] Weight 2018-09-25 265 [lb_av] [facility] 08:47:00 [place] [facility] Body Mass Index 2018-09-25 38.02 kg/m2 [facility] Calculated 08:47:00 [place] [facility] Temperature 2018-09-25 97.9 [degF] [facility] 08:47:00 [place] [facility] Heart Rate 2018-09-25 72 /min [facility] 08:47:00 [place] [facility] Weight 2018-09-23 [facility] 20:43:00 BMI Calculated 2018-09-23 [facility] 20:43:00 Height 2018-09-23 180 cm [facility] 20:43:00 Temperature Oral 2018-09-23 97.4 F [facility] (F) 20:43:00 Respitory Rate 2018-09-23 [facility] 20:43:00 Systolic (mm Hg) 2018-09-23 [facility] 20:43:00 Diastolic (mm Hg) 2018-09-23 [facility] 20:43:00 Heart Rate 2018-09-23 [facility] 20:43:00 Height 2018-07-31 179.6 cm [facility] 17:30:00 BMI Calculated 2018-07-31 [facility] 17:30:00 Weight 2018-07-31 [facility] 17:30:00 Temperature Oral 2018-07-31 97.6 F [facility] (F) 17:30:00 Respitory Rate 2018-07-31 [facility] 17:30:00 Heart Rate 2018-07-31 [facility] 17:30:00 Systolic (mm Hg) 2018-07-31 [facility] 17:30:00 Diastolic (mm Hg) 2018-07-31 [facility] 17:30:00 Height 2018-07-23 179.6 cm [facility] 20:55:00 Weight 2018-07-23 [facility] 20:55:00 BMI Calculated 2018-07-23 [facility] 20:55:00 Heart Rate 2018-07-23 [facility] 20:55:00 Temperature Oral 2018-07-23 97.4 F [facility] (F) 20:55:00 Respitory Rate 2018-07-23 [facility] 20:55:00 Systolic (mm Hg) 2018-07-23 [facility] 20:55:00 Diastolic (mm Hg) 2018-07-23 [facility] 20:55:00 BP Systolic 2018-06-28 146 mm[Hg] [facility] 09:30:00 [place] [facility] BP Diastolic 2018-06-28 81 mm[Hg] [facility] 09:30:00 [place] [facility] Temperature 2018-06-28 97 [degF] [facility] 09:30:00 [place] [facility] Heart Rate 2018-06-28 68 /min [facility] 09:30:00 [place] [facility] Height 2018-06-25 179.5 cm [facility] 20:09:00 BMI Calculated 2018-06-25 [facility] 20:09:00 Weight 2018-06-25 [facility] 20:09:00 Temperature Oral 2018-06-25 97.8 F [facility] (F) 20:09:00 Respitory Rate 2018-06-25 [facility] 20:09:00 Heart Rate 2018-06-25 [facility] 20:09:00 Systolic (mm Hg) 2018-06-25 [facility] 20:09:00 Diastolic (mm Hg) 2018-06-25 [facility] 20:09:00 Height 2018-05-14 179.6 cm [facility] 15:34:00 Weight 2018-05-14 [facility] 15:34:00 BMI Calculated 2018-05-14 [facility] 15:34:00 Heart Rate 2018-05-14 [facility] 15:34:00 Respitory Rate 2018-05-14 [facility] 15:34:00 Temperature Oral 2018-05-14 97.9 F [facility] (F) 15:34:00 Systolic (mm Hg) 2018-05-14 [facility] 15:34:00 Diastolic (mm Hg) 2018-05-14 [facility] 15:34:00 Height 2018-04-09 179.5 cm [facility] 19:49:00 Weight 2018-04-09 [facility] 19:49:00 BMI Calculated 2018-04-09 [facility] 19:49:00 Heart Rate 2018-04-09 [facility] 19:49:00 Respitory Rate 2018-04-09 [facility] 19:49:00 Temperature Oral 2018-04-09 97.9 F [facility] (F) 19:49:00 Systolic (mm Hg) 2018-04-09 [facility] 19:49:00 Diastolic (mm Hg) 2018-04-09 [facility] 19:49:00 BP Systolic 2018-03-29 137 mm[Hg] Location: [facility] 13:41:00 Position: [place] [facility] BP Diastolic 2018-03-29 78 mm[Hg] Location: [facility] 13:41:00 Position: [place] [facility] Temperature 2018-03-29 97.6 [degF] Method: Oral [facility] 13:41:00 [place] [facility] Heart Rate 2018-03-29 73 /min [facility] 13:41:00 [place] [facility] BMI Calculated 2018-03-12 [facility] 15:21:00 Height 2018-03-12 180 cm [facility] 15:21:00 Weight 2018-03-12 [facility] 15:21:00 Systolic (mm Hg) 2018-03-12 [facility] 15:21:00 Diastolic (mm Hg) 2018-03-12 [facility] 15:21:00 Temperature Oral 2018-03-12 97.7 F [facility] (F) 15:21:00 Heart Rate 2018-03-12 [facility] 15:21:00 Respitory Rate 2018-03-12 [facility] 15:21:00 BMI Calculated 2018-02-19 [facility] 20:31:00 Weight 2018-02-19 [facility] 20:31:00 Height 2018-02-19 180.2 cm [facility] 20:31:00 Systolic (mm Hg) 2018-02-19 [facility] 20:31:00 Diastolic (mm Hg) 2018-02-19 [facility] 20:31:00 Temperature Oral 2018-02-19 97.9 F [facility] (F) 20:31:00 Respitory Rate 2018-02-19 [facility] 20:31:00 Heart Rate 2018-02-19 [facility] 20:31:00 Weight 2018-01-29 [facility] 14:52:00 BMI Calculated 2018-01-29 [facility] 14:52:00 Height 2018-01-29 180.2 cm [facility] 14:52:00 Respitory Rate 2018-01-29 [facility] 14:52:00 Temperature Oral 2018-01-29 97.4 F [facility] (F) 14:52:00 Heart Rate 2018-01-29 [facility] 14:52:00 Systolic (mm Hg) 2018-01-29 [facility] 14:52:00 Diastolic (mm Hg) 2018-01-29 [facility] 14:52:00 Weight 2017-12-17 [facility] 20:15:00 BMI Calculated 2017-12-17 [facility] 20:15:00 Systolic (mm Hg) 2017-12-17 [facility] 20:15:00 Diastolic (mm Hg) 2017-12-17 [facility] 20:15:00 Height 2017-12-17 180 cm [facility] 20:15:00 Respitory Rate 2017-12-17 [facility] 20:15:00 Heart Rate 2017-12-17 [facility] 20:15:00 Temperature Oral 2017-12-17 98.1 F [facility] (F) 20:15:00 Weight 2017-12-10 [facility] 16:21:00 Systolic (mm Hg) 2017-12-10 [facility] 16:21:00 Diastolic (mm Hg) 2017-12-10 [facility] 16:21:00 Heart Rate 2017-12-10 [facility] 16:21:00 Temperature Oral 2017-12-10 96.7 F [facility] (F) 16:21:00 Respitory Rate 2017-12-10 [facility] 16:21:00 Temperature Oral 2017-12-05 96.6 F [facility] (F) 18:57:00 Respitory Rate 2017-12-05 [facility] 18:57:00 Systolic (mm Hg) 2017-12-05 [facility] 18:57:00 Diastolic (mm Hg) 2017-12-05 [facility] 18:57:00 Heart Rate 2017-12-05 [facility] 18:57:00 Weight 2017-12-05 [facility] 18:57:00 Weight 2017-12-04 [facility] 18:47:00 Temperature Oral 2017-12-04 97.9 F [facility] (F) 18:47:00 Heart Rate 2017-12-04 [facility] 18:47:00 Respitory Rate 2017-12-04 [facility] 18:47:00 Systolic (mm Hg) 2017-12-04 [facility] 18:47:00 Diastolic (mm Hg) 2017-12-04 [facility] 18:47:00 BMI Calculated 2017-11-21 [facility] 19:08:00 Height 2017-11-21 182.88 cm [facility] 19:08:00 Weight 2017-11-20 [facility] 19:16:00 BMI Calculated 2017-11-20 [facility] 19:16:00 Height 2017-11-20 180 cm [facility] 19:16:00 Temperature Oral 2017-11-20 97.9 F [facility] (F) 19:16:00 Heart Rate 2017-11-20 [facility] 19:16:00 Respitory Rate 2017-11-20 [facility] 19:16:00 Systolic (mm Hg) 2017-11-20 [facility] 19:16:00 Diastolic (mm Hg) 2017-11-20 [facility] 19:16:00 Height 2017-11-13 180 cm [facility] 16:10:00 Weight 2017-11-13 [facility] 16:10:00 BMI Calculated 2017-11-13 [facility] 16:10:00 Systolic (mm Hg) 2017-11-13 [facility] 16:10:00 Diastolic (mm Hg) 2017-11-13 [facility] 16:10:00 Temperature Oral 2017-11-13 97.4 F [facility] (F) 16:10:00 Respitory Rate 2017-11-13 [facility] 16:10:00 Heart Rate 2017-11-13 [facility] 16:10:00 BP Systolic 2017-11-09 127 mm[Hg] [facility] 11:22:00 [place] [facility] BP Diastolic 2017-11-09 73 mm[Hg] [facility] 11:22:00 [place] [facility] Temperature 2017-11-09 97.1 [degF] [facility] 11:22:00 [place] [facility] Heart Rate 2017-11-09 71 /min [facility] 11:22:00 [place] [facility] Systolic (mm Hg) 2017-10-27 [facility] 23:16:00 Diastolic (mm Hg) 2017-10-27 [facility] 23:16:00 Respitory Rate 2017-10-27 [facility] 23:16:00 Temperature Oral 2017-10-27 98.1 F [facility] (F) 23:16:00 Heart Rate 2017-10-27 [facility] 23:16:00 Respitory Rate 2017-10-27 [facility] 19:22:00 Systolic (mm Hg) 2017-10-27 [facility] 19:22:00 Diastolic (mm Hg) 2017-10-27 [facility] 19:22:00 Heart Rate 2017-10-27 [facility] 19:22:00 Temperature Oral 2017-10-27 97.9 F [facility] (F) 19:22:00 Temperature Oral 2017-10-27 97.9 F [facility] (F) 14:24:00 Systolic (mm Hg) 2017-10-27 [facility] 14:24:00 Diastolic (mm Hg) 2017-10-27 [facility] 14:24:00 Respitory Rate 2017-10-27 [facility] 14:24:00 Heart Rate 2017-10-27 [facility] 14:24:00 Height 2017-10-20 182.88 cm [facility] 07:08:00 Weight 2017-10-20 [facility] 07:08:00 BMI Calculated 2017-10-20 [facility] 07:08:00 Weight 2017-10-19 [facility] 21:32:00 BMI Calculated 2017-10-19 [facility] 21:32:00 Height 2017-10-19 182.88 cm [facility] 21:32:00 Procedures Procedure Date / Time Performing Source Performed Clinician HEPATIC FUNCTION PANEL 2020-12-05 Pauline Saldaña MD And erson 12:43:00 PROTHROMBIN TIME 2020-12-05 Pauline Saldaña MD 12:43:00 COMPREHENSIVE METABOLIC PANEL 2020-12-05 Pauline Saldaña MD 12:43:00 IMMUNOGLOBULIN G SERUM 2020-12-05 Pauline Saldaña MD And erson 12:43:00 ALBUMIN LEVEL 2020-12-05 Pauline Saldaña MD 12:43:00 ALKALINE PHOSPHATASE 2020-12-05 Pauline Saldaña MD Jose L son 12:43:00 ALANINE AMINOTRANSFERASE 2020-12-05 Pauline Saldaña MD nderson 12:43:00 ASPARTATE AMINOTRANSFERASE 2020-12-05 Pauline Saldaña MD 12:43:00 TOTAL PROTEIN 2020-12-05 Pauline Saldaña MD 12:43:00 FRACTIONATED BILIRUBIN 2020-12-05 Pauline Saldaña MD And erson 12:43:00 GLUCOSE LEVEL 2020-12-05 Pauline Saldaña MD 12:43:00 BLOOD UREA NITROGEN 2020-12-05 Pauline Saldaña MD on 12:43:00 ELECTROLYTE PANEL 2020-12-05 Pauline Saldaña MD 12:43:00 SERUM CREATININE 2020-12-05 Pauline Saldaña MD 12:43:00 .GLOMERULAR FILTRATION RATE 2020-12-05 Pauline Saldaña 12:43:00 CALCIUM LEVEL TOTAL 2020-12-05 Pauline Saldaña MD on 12:43:00 [U] XRAY TIBIA FIBULA 2 VWS 2020-11-16 [facility] RIGHT [id number] 00:00:00 Physicians TOTAL PROTEIN 2020-11-11 Jose Alfredo Crawford MD 13:03:00 FRACTIONATED BILIRUBIN 2020-11-11 Jose Alfredo Crawford MD on 13:03:00 URINALYSIS MICROSCOPIC 2020-11-11 Jose Alfredo Crawford MD on 13:03:00 COMPLETE BLOOD COUNT W/ 2020-11-11 Jose Alfredo Crawford MD Jose L son DIFFERENTIAL 13:03:00 COMPREHENSIVE METABOLIC PANEL 2020-11-11 Jose Alfredo Crawford MD 13:03:00 LACTATE DEHYDROGENASE 2020-11-11 Jose Alfredo Crawford MD Andmaximo n 13:03:00 PHOSPHORUS LEVEL 2020-11-11 Jose Alfredo Crawford MD 13:03:00 MAGNESIUM LEVEL 2020-11-11 Jose Alfredo Crawford MD 13:03:00 THYROID STIMULATING HORMONE 2020-11-11 Jose Alfredo Crawford MD nderson 13:03:00 FREE THYROXINE 2020-11-11 Jose Alfredo Crawford MD 13:03:00 URINALYSIS WITH MICROSCOPIC 2020-11-11 Jose Alfredo Crawford MD nderson IF INDICATED 13:03:00 PROTEIN / CREATININE RATIO 2020-11-11 Jose Alfredo Crawford MD derson URINE 13:03:00 C REACTIVE PROTEIN 2020-11-11 Jose Alfredo Crawford MD 13:03:00 SEDIMENTATION RATE 2020-11-11 Jose Alfredo Crawford MD NON-AUTOMATED 13:03:00 Results CBC 2020-11-11 Jose Alfredo Crawford MD 13:03:00 MANUAL DIFFERENTIAL 2020-11-11 Jose Alfredo Crawford MD 13:03:00 GLUCOSE LEVEL 2020-11-11 Jose Alfredo Crawford MD 13:03:00 BLOOD UREA NITROGEN 2020-11-11 Jose Alfredo Crawford MD 13:03:00 ELECTROLYTE PANEL 2020-11-11 Jose Alfredo Crawford MD 13:03:00 SERUM CREATININE 2020-11-11 Jose Alfredo Crawford MD 13:03:00 .GLOMERULAR FILTRATION RATE 2020-11-11 Jose Alfredo Crawford MD nderson 13:03:00 CALCIUM LEVEL TOTAL 2020-11-11 Jose Alfredo Crawford MD 13:03:00 ALBUMIN LEVEL 2020-11-11 Jose Alfredo Crawford MD 13:03:00 ALKALINE PHOSPHATASE 2020-11-11 Jose Alfredo Crawford MD 13:03:00 ALANINE AMINOTRANSFERASE 2020-11-11 Jose Alfredo Crawford MD Griffin rson 13:03:00 ASPARTATE AMINOTRANSFERASE 2020-11-11 Jose Alfredo Crawford MD derson 13:03:00 MR Tib Fib w/wo contrast 2020-10-20 [facility] [id number] 00:00:00 Physicians [U] XRAY FEMUR 2 VWS RIGHT 2020-10-06 [facility] [id number] 00:00:00 Physicians [U] XRAY TIBIA FIBULA 2 VWS 2020-10-06 [facility] RIGHT [id number] 00:00:00 Physicians MR Knee w/wo contrast [id number] 2020-10-06 [facility] 00:00:00 Physicians MR Femur w/wo contrast [id number] 2020-10-06 [facility] 00:00:[address] CHEST ABDOMEN PELVIS W 2020-09-29 Jose Alfredo Crawford MD And erson CONTRAST 22:31:39 NM BONE SCAN WHOLE BODY 2020-09-29 Jose Alfredo Crawford MD Jose L son 20:30:17 XR FOOT 3+ VW LEFT 2020-09-29 Jovana Morris MD 19:21:36 ELECTROLYTE PANEL 2020-09-29 Evette Gomez MD 18:35:00 BLOOD UREA NITROGEN 2020-09-29 Evette Gomez MD 18:35:00 GLUCOSE, RANDOM 2020-09-29 Evette Gomez MD 18:35:00 SERUM CREATININE 2020-09-29 Evette Gomez MD 18:35:00 CALCIUM LEVEL TOTAL 2020-09-29 Evette Gomez MD 18:35:00 PHOSPHORUS LEVEL 2020-09-29 Evette Gomez MD 18:35:00 MAGNESIUM LEVEL 2020-09-29 Evette Gomez MD 18:35:00 URIC ACID 2020-09-29 Evette Gomez MD 18:35:00 COMPLETE BLOOD COUNT W/ 2020-09-29 Evette Gomez MD Jose L son DIFFERENTIAL 18:35:00 URINALYSIS WITH MICROSCOPIC 2020-09-29 Evette Gomez MD nderson IF INDICATED 18:35:00 PROTEIN / CREATININE RATIO 2020-09-29 Evette Gomez MD derson URINE 18:35:00 COMPREHENSIVE METABOLIC PANEL 2020-09-29 Jose Alfredo Crawford MD 18:35:00 LACTATE DEHYDROGENASE 2020-09-29 Jose Alfredo Crawford MD Anderso n 18:35:00 THYROID STIMULATING HORMONE 2020-09-29 Jose Alfredo Crawford MD nderson 18:35:00 FREE THYROXINE 2020-09-29 Jose Alfredo Crawford MD 18:35:00 SERUM CREATININE 2020-09-29 Evette Gomez MD 18:35:00 .GLOMERULAR FILTRATION RATE 2020-09-29 Evette Gomez MD nderson 18:35:00 ALBUMIN LEVEL 2020-09-29 Jose Alfredo Crawford MD 18:35:00 ALKALINE PHOSPHATASE 2020-09-29 Jose Alfredo Crawford MD 18:35:00 ALANINE AMINOTRANSFERASE 2020-09-29 Jose Alfredo Crawford MD Griffin rson 18:35:00 ASPARTATE AMINOTRANSFERASE 2020-09-29 Jose Alfredo Crawford MD derson 18:35:00 TOTAL PROTEIN 2020-09-29 Jose Alfredo Crawford MD 18:35:00 FRACTIONATED BILIRUBIN 2020-09-29 Jose Alfredo Crawford MD on 18:35:00 Results CBC 2020-09-29 Evette Gomez MD 18:35:00 MANUAL DIFFERENTIAL 2020-09-29 Evette Gomez MD 18:35:00 URINALYSIS MICROSCOPIC 2020-09-29 Evette Gomez MD on 18:35:00 COMPREHENSIVE METABOLIC PANEL 2020-09-23 Xochitl Cee MD 21:46:00 GLUCOSE LEVEL 2020-09-23 Xochitl Cee MD 21:46:00 BLOOD UREA NITROGEN 2020-09-23 Xochitl Cee MD 21:46:00 ELECTROLYTE PANEL 2020-09-23 StephazolXochitl whaley MD 21:46:00 SERUM CREATININE 2020-09-23 Stephazoljudd, Xochitl To 21:46:00 .GLOMERULAR FILTRATION RATE 2020-09-23 Xochitl Cee MD nderson 21:46:00 CALCIUM LEVEL TOTAL 2020-09-23 Adriazoljudd, Xochitl To 21:46:00 ALBUMIN LEVEL 2020-09-23 Stephazoljudd, Xochitl To 21:46:00 ALKALINE PHOSPHATASE 2020-09-23 Adriazoljudd, Xochitl To 21:46:00 ALANINE AMINOTRANSFERASE 2020-09-23 Stephazoljudd, Xochitl VILLEGAS Griffin rson 21:46:00 ASPARTATE AMINOTRANSFERASE 2020-09-23 Adriazoljudd, Xochitl Garza derson 21:46:00 TOTAL PROTEIN 2020-09-23 AdriazolXochitl whaley MD 21:46:00 FRACTIONATED BILIRUBIN 2020-09-23 Stephazoljudd, Xochitl VILLEGAS Gerhard on 21:46:00 [Q] CULTURE, FUNGUS W/SMEAR 2020-09-10 [facility] NOT HAIR, SKIN, BLOOD 00:00:00 Physicians [Q] CULTURE, MYCOBACTERIA 2020-09-10 [facility] W/FLUOROCHROME SMEAR 00:00:00 Physicians [QL] CULTURE, AEROBIC AND 2020-09-10 [facility] ANAEROBIC W/GRAM STAIN 00:00:00 Physician s WOUND CULTURE W/ GRAM STAIN 2020-09-08 Jovana Morris MD nderson 21:57:00 IR US NON-TARGET LIVER BIOPSY 2020-09-06 Ole Jimenez 18:45:38 PATHOLOGY BIOPSY 2020-09-06 Ole Jimenez MD INTERPRETATION 17:42:00 POC GLUCOSE SCREEN 2020-09-06 Ole Jimenez MD 17:37:00 2019-NCOV COVID-19 2020-09-03 Morro Murphy MD 15:22:00 CARBON DIOXIDE LEVEL 2020-09-03 Katerina Hoyt MD 15:06:00 CHLORIDE LEVEL 2020-09-03 Katerina Hoyt MD 15:06:00 SODIUM LEVEL 2020-09-03 Saritha, Katerina To 15:06:00 POTASSIUM LEVEL 2020-09-03 Saritha, Katerina To 15:06:00 SERUM CREATININE 2020-09-03 Saritha, Katerina To 15:06:00 BLOOD UREA NITROGEN 2020-09-03 Hoyt, Katerina To 15:06:00 GLUCOSE, RANDOM 2020-09-03 Saritha, Katerina To 15:06:00 TYPE AND SCREEN 2020-09-03 Saritha, Katerina To 15:06:00 SERUM CREATININE 2020-09-03 Saritha, Katerina To 15:06:00 .GLOMERULAR FILTRATION RATE 2020-09-03 Saritha, Katerina jaramillorson 15:06:00 ABORH 2020-09-03 Saritha, Katerina To 15:06:00 ANTIBODY SCREEN 2020-09-03 Saritha, Katerina To 15:06:00 ANION GAP 2020-09-03 Saritha, Katerina To 15:06:00 CLOT EXPIRATION DATE 2020-09-03 Saritha, Katerina To 15:06:00 TMP INTERPRETATION ANTIBODY 2020-09-03 Saritha, Katerina patel SCREEN NEGATIVE 15:06:00 COMPLETE BLOOD COUNT W/ 2020-08-26 Xochitl Ceeer son DIFFERENTIAL 15:09:00 COMPREHENSIVE METABOLIC PANEL 2020-08-26 Xochitl Cee MD 15:09:00 LACTATE DEHYDROGENASE 2020-08-26 StephazolXochitl whaley MD Andmaximo n 15:09:00 MAGNESIUM LEVEL 2020-08-26 AdriazolXochitl whaley MD 15:09:00 PHOSPHORUS LEVEL 2020-08-26 StephazolXochitl whaley MD 15:09:00 FREE THYROXINE 2020-08-26 Xochitl Cee MD 15:09:00 THYROID STIMULATING HORMONE 2020-08-26 Xochitl Cee MD nderson 15:09:00 C REACTIVE PROTEIN 2020-08-26 Xochitl Cee MD 15:09:00 SEDIMENTATION RATE 2020-08-26 Xochitl Cee MD NON-AUTOMATED 15:09:00 URINALYSIS WITH MICROSCOPIC 2020-08-26 Xochitl Cee MDrson IF INDICATED 15:09:00 PROTEIN / CREATININE RATIO 2020-08-26 Adriazola, Xochitl Garza derson URINE 15:09:00 Results CBC 2020-08-26 Adriazola, Xochitl To 15:09:00 MANUAL DIFFERENTIAL 2020-08-26 Adriazola, Xochitl To 15:09:00 GLUCOSE LEVEL 2020-08-26 Adriazola, Xochitl To 15:09:00 BLOOD UREA NITROGEN 2020-08-26 Adriazola, Xochitl To 15:09:00 ELECTROLYTE PANEL 2020-08-26 Adriazola, Xochitl To 15:09:00 SERUM CREATININE 2020-08-26 Adriazola, Xochitl To 15:09:00 .GLOMERULAR FILTRATION RATE 2020-08-26 Adriazola, Xochitl Whaley nderson 15:09:00 CALCIUM LEVEL TOTAL 2020-08-26 Adriazola, Xochitl To 15:09:00 ALBUMIN LEVEL 2020-08-26 Adriazola, Xochitl To 15:09:00 ALKALINE PHOSPHATASE 2020-08-26 Adriazola, Xochitl To 15:09:00 ALANINE AMINOTRANSFERASE 2020-08-26 Adriazola, Xochitl Moya rson 15:09:00 ASPARTATE AMINOTRANSFERASE 2020-08-26 Adriazola, Xochitl chiangson 15:09:00 TOTAL PROTEIN 2020-08-26 Adriazola, Xochitl To 15:09:00 FRACTIONATED BILIRUBIN 2020-08-26 Adriazola, Xochitl Hennessy on 15:09:00 URINALYSIS MICROSCOPIC 2020-08-26 Adriazola, Xochitl Hennessy on 15:09:00 CMV QUANT, PLASMA 2020-08-06 Ole Jimenez MD 14:03:00 COMPREHENSIVE METABOLIC PANEL 2020-08-06 Ole Jimenez 14:03:00 GAMMA GLUTAMYL TRANSFERASE 2020-08-06 Ole Jimenez MD nderson 14:03:00 ALKALINE PHOSPHATASE 2020-08-06 Ole Jimenez MD Andmaximo n FRACTIONATED 14:03:00 PROTHROMBIN TIME 2020-08-06 Ole Jimenez MD 14:03:00 IMMUNOGLOBULIN G SERUM 2020-08-06 Ole Jimenez MD Jose L son 14:03:00 IRON LEVEL 2020-08-06 Ole Jimenez MD 14:03:00 FERRITIN LVL 2020-08-06 Ole Jimenez MD 14:03:00 TRANSFERRIN 2020-08-06 Ole Jimenez MD 14:03:00 ALPHA 1 ANTRITRYPSIN, SERUM 2020-08-06 Ole Jimenez MD 14:03:00 SMOOTH MUSCLE ANTIBODY SCREEN 2020-08-06 Ole Jimenez 14:03:00 LIVER/KIDNEY MICROSOME TYPE 1 2020-08-06 Ole Jimenez ANTIBODY, SERUM 14:03:00 ANTINUCLEAR ANTIBODY HEP-2 2020-08-06 Ole Jimenez MD nderson SUBSTRATE IGG 14:03:00 MITOCHONDRIAL ANTIBODIES, M2, 2020-08-06 Ole Jimenez SERUM 14:03:00 HEPATITIS A IGM ANTIBODY 2020-08-06 Ole Jimenez MD And erson SERUM 14:03:00 OP PATRICE REF 2020-08-06 Ole Jimenez MD 14:03:00 HEPATITIS A ANTIBODY IGG 2020-08-06 Ole Jimenez MD And erson 14:03:00 HP MOLECULAR BLOOD COLLECTION 2020-08-06 Ole Jimenez 14:03:00 THIOPURINE METHYLTRANSFERASE, 2020-08-06 Ole Jimenez RBC 14:03:00 GLUCOSE LEVEL 2020-08-06 Ole Jimenez MD 14:03:00 BLOOD UREA NITROGEN 2020-08-06 Ole Jimenez MD 14:03:00 ELECTROLYTE PANEL 2020-08-06 Ole Jimenez MD 14:03:00 SERUM CREATININE 2020-08-06 Ole Jimenez MD 14:03:00 .GLOMERULAR FILTRATION RATE 2020-08-06 Ole Jimenez MD 14:03:00 CALCIUM LEVEL TOTAL 2020-08-06 Ole Jimenez MD 14:03:00 ALBUMIN LEVEL 2020-08-06 Ole Jimenez MD 14:03:00 ALKALINE PHOSPHATASE 2020-08-06 Ole Jimenez MD Anderso n 14:03:00 ALANINE AMINOTRANSFERASE 2020-08-06 Ole Jimenez MD And erson 14:03:00 ASPARTATE AMINOTRANSFERASE 2020-08-06 Ole Jimenez MD nderson 14:03:00 TOTAL PROTEIN 2020-08-06 Ole Jimenez MD 14:03:00 FRACTIONATED BILIRUBIN 2020-08-06 Ole Jimenez MD Jose L son 14:03:00 HC REF HEPATITIS E VIRUS BY 2020-08-06 Ole Jimenez MD QUANTITATIVE PCR 14:03:00 HP ALYSSA-LESTER VIRUS 2020-08-06 Ole Jimenez QUANTITATIVE PCR ANALYSIS 14:03:00 REPORT COMPLETE BLOOD COUNT W/ 2020-07-29 Adriazoljudd, Xochitl VILLEGAS Jose L son DIFFERENTIAL 19:01:00 COMPREHENSIVE METABOLIC PANEL 2020-07-29 Adriazola, Xochitl To 19:01:00 LACTATE DEHYDROGENASE 2020-07-29 Adriazola, Xochitl VILLEGAS Anderso n 19:01:00 MAGNESIUM LEVEL 2020-07-29 Adriazola, Xochitl To 19:01:00 PHOSPHORUS LEVEL 2020-07-29 Adriazola, Xochitl To 19:01:00 THYROID STIMULATING HORMONE 2020-07-29 Adriazola, Xochitl Whaley nderson 19:01:00 FREE THYROXINE 2020-07-29 Adriazola, Xochitl To 19:01:00 SEDIMENTATION RATE 2020-07-29 Adriazoljudd, Xochitl To NON-AUTOMATED 19:01:00 C REACTIVE PROTEIN 2020-07-29 Adriazola, Xochitl To 19:01:00 URINALYSIS WITH MICROSCOPIC 2020-07-29 StephazolXochitl whaley MD nderson IF INDICATED 19:01:00 PROTEIN / CREATININE RATIO 2020-07-29 AdriazolaXochitl MD derson URINE 19:01:00 Results CBC 2020-07-29 AdriazolaXochitl MD 19:01:00 MANUAL DIFFERENTIAL 2020-07-29 AdriazolXochitl whaley MD 19:01:00 GLUCOSE LEVEL 2020-07-29 Adriazola, Xochitl To 19:01:00 BLOOD UREA NITROGEN 2020-07-29 Adriazola, Xochitl To 19:01:00 ELECTROLYTE PANEL 2020-07-29 AdriazolaXochitl MD 19:01:00 SERUM CREATININE 2020-07-29 AdriazolXochitl whaley MD 19:01:00 .GLOMERULAR FILTRATION RATE 2020-07-29 StephazolXochitl whaley MD nderson 19:01:00 CALCIUM LEVEL TOTAL 2020-07-29 AdriazolXochitl whaley MD 19:01:00 ALBUMIN LEVEL 2020-07-29 AdriazolaXochitl MD 19:01:00 ALKALINE PHOSPHATASE 2020-07-29 Xochitl Cee MD 19:01:00 ALANINE AMINOTRANSFERASE 2020-07-29 Xochitl Cee MD Griffin rson 19:01:00 ASPARTATE AMINOTRANSFERASE 2020-07-29 Xochitl Cee MD derson 19:01:00 TOTAL PROTEIN 2020-07-29 Xochitl Cee MD 19:01:00 FRACTIONATED BILIRUBIN 2020-07-29 Xochitl Cee MD Gerhard on 19:01:00 URINALYSIS MICROSCOPIC 2020-07-29 Xochitl Cee MD on 19:01:00 EKG, 12-LEAD (SCHEDULED) 2020-07-29 Xochitl Cee MD Griffin rson 00:00:00 COMPLETE BLOOD COUNT W/ 2020-07-09 Jose Alfredo Crawford MD Jose L son DIFFERENTIAL 15:23:00 COMPREHENSIVE METABOLIC PANEL 2020-07-09 Jose Alfredo Crawford MD 15:23:00 LACTATE DEHYDROGENASE 2020-07-09 Jose Alfredo Crawford MD Andmaximo n 15:23:00 MAGNESIUM LEVEL 2020-07-09 Jose Alfredo Crawford MD 15:23:00 PHOSPHORUS LEVEL 2020-07-09 Jose Alfredo Crawford MD 15:23:00 THYROID STIMULATING HORMONE 2020-07-09 Jose Alfredo Crawford MD nderson 15:23:00 FREE THYROXINE 2020-07-09 Jose Alfredo Crawford MD 15:23:00 PROTEIN / CREATININE RATIO 2020-07-09 Jose Alfredo Crawford MD derson URINE 15:23:00 URINALYSIS WITH MICROSCOPIC 2020-07-09 Jose Alfredo Crawford MD nderson IF INDICATED 15:23:00 Results CBC 2020-07-09 Jose Alfredo Crawford MD 15:23:00 MANUAL DIFFERENTIAL 2020-07-09 Jose Alfredo Crawford MD 15:23:00 GLUCOSE LEVEL 2020-07-09 Jose Alfredo Crawford MD 15:23:00 BLOOD UREA NITROGEN 2020-07-09 Jose Alfredo Crawford MD 15:23:00 ELECTROLYTE PANEL 2020-07-09 Jose Alfredo Crawford MD 15:23:00 SERUM CREATININE 2020-07-09 Jose Alfredo Crawford MD 15:23:00 .GLOMERULAR FILTRATION RATE 2020-07-09 Jose lAfredo Crawford MD nderson 15:23:00 CALCIUM LEVEL TOTAL 2020-07-09 Jose Alfredo Crawford MD 15:23:00 ALBUMIN LEVEL 2020-07-09 Jose Alfredo Crawford MD 15:23:00 ALKALINE PHOSPHATASE 2020-07-09 Jose Alfredo Crawford MD 15:23:00 ALANINE AMINOTRANSFERASE 2020-07-09 Jose Alfredo Crawford MD Griffin rson 15:23:00 ASPARTATE AMINOTRANSFERASE 2020-07-09 Jose Alfredo Crawford MD derson 15:23:00 TOTAL PROTEIN 2020-07-09 Jose Alfredo Crawford MD 15:23:00 FRACTIONATED BILIRUBIN 2020-07-09 Jose Alfredo Crawford MD Gerhard on 15:23:00 URINALYSIS MICROSCOPIC 2020-07-09 Jose Alfredo Crawford MD Gerhard on 15:23:00 HEPATITIS C VIRUS ANTIBODY 2020-06-28 Jose Alfredo Crawford MD derson 16:30:00 HEPATITIS B SURFACE ANTIGEN, 2020-06-28 Jose Alfredo Crawford MD SERUM 16:30:00 HEPATITIS B SURFACE ANTIBODY, 2020-06-28 Jose Alfredo Crawford MD SERUM 16:30:00 HEPATITIS B CORE ANTIBODY 2020-06-28 Jose Alfredo Crawford MD And erson 16:30:00 HC REF HEPATITIS BC AB, IGG & 2020-06-28 Jose Alfredo Crawford MD IGM 16:30:00 HEPATITIS B SURFACE AG 2020-06-28 Jose Alfredo Crawford MD Gerhard on W/CONFIRM 16:30:00 HEPATITIS C VIRUS AB SCREEN 2020-06-28 Jose Alfredo Crawford MD nderson W/REFLEX HCV PCR 16:30:00 US LIVER 2020-06-25 Jose Alfredo Crawford MD 20:41:25 CT CHEST ABDOMEN PELVIS W 2020-06-25 Xochitl Cee MD And erson CONTRAST 19:43:00 NM BONE SCAN WHOLE BODY 2020-06-25 Xochitl Cee MD Jose L son 16:51:07 COMPLETE BLOOD COUNT W/ 2020-06-25 Xochitl Cee MD Jose L son DIFFERENTIAL 14:52:00 COMPREHENSIVE METABOLIC PANEL 2020-06-25 Xochitl Cee MD 14:52:00 LACTATE DEHYDROGENASE 2020-06-25 Xochitl Cee MD Anderso n 14:52:00 MAGNESIUM LEVEL 2020-06-25 Adriazola, Xochitl To 14:52:00 PHOSPHORUS LEVEL 2020-06-25 Adriazola, Xochitl To 14:52:00 THYROID STIMULATING HORMONE 2020-06-25 Adriazola, Xochitl Whaley nderson 14:52:00 FREE THYROXINE 2020-06-25 Adriazola, Xochitl To 14:52:00 URINALYSIS WITH MICROSCOPIC 2020-06-25 Adriazola, Xochitl Whaley nderson IF INDICATED 14:52:00 PROTEIN / CREATININE RATIO 2020-06-25 Adriazola, Xochitl Garza derson URINE 14:52:00 Results CBC 2020-06-25 Adriazola, Xochitl To 14:52:00 MANUAL DIFFERENTIAL 2020-06-25 Adriazola, Xochitl To 14:52:00 GLUCOSE LEVEL 2020-06-25 Adriazola, Xochitl To 14:52:00 BLOOD UREA NITROGEN 2020-06-25 Adriazola, Xochitl To 14:52:00 SERUM CREATININE 2020-06-25 Adriazola, Xochitl To 14:52:00 .GLOMERULAR FILTRATION RATE 2020-06-25 Adriazola, Xochitl Whaley nderson 14:52:00 CALCIUM LEVEL TOTAL 2020-06-25 Adriazola, Xochitl To 14:52:00 ALBUMIN LEVEL 2020-06-25 Adriazola, Xochitl To 14:52:00 ALKALINE PHOSPHATASE 2020-06-25 Adriazola, Xochitl To 14:52:00 ALANINE AMINOTRANSFERASE 2020-06-25 Adriazola, Xochitl Moya rson 14:52:00 ASPARTATE AMINOTRANSFERASE 2020-06-25 Adriazola, Xochitl chiangson 14:52:00 TOTAL PROTEIN 2020-06-25 Adriazola, Xochitl To 14:52:00 FRACTIONATED BILIRUBIN 2020-06-25 Adriazola, Xochitl Hennessy on 14:52:00 ELECTROLYTE PANEL 2020-06-25 Adriazola, Xochitl To 14:52:00 URINALYSIS MICROSCOPIC 2020-06-25 Adriazola, Xochitl Hennessy on 14:52:00 [place] MISCELLANEOUS TEST 2020-06-18 Jose Alfredo Crawford MD Jose L son 19:55:00 XR CHEST 2 VW 2020-06-18 Jose Alfredo Crawford MD 16:25:16 URINE CULTURE 2020-06-18 Jose Alfredo Crawford MD 15:49:00 AMYLASE LEVEL 2020-06-18 Jose Alfredo Crawford MD 15:49:00 FREE THYROXINE 2020-06-18 Jose Alfredo Crawford MD 15:49:00 LIPASE LEVEL 2020-06-18 Jose Alfredo Crawford MD 15:49:00 THYROID STIMULATING HORMONE 2020-06-18 Jose Alfredo Crawford MD nderson 15:49:00 ADRENOCORTICOTROPIC HORMONE 2020-06-18 Jose Alfredo Crawford MD nderson 15:49:00 CORTISOL 2020-06-18 Jose Alfredo Crawford MD 15:49:00 INSULIN LEVEL 2020-06-18 Jose Alfredo Crawford MD 15:49:00 C-PEPTIDE 2020-06-18 Jose Alfredo Crawford MD 15:49:00 [id number] ANTIBODY ASSAY SERUM 2020-06-18 Jose Alfredo Crawford MD derson 15:49:00 INSULIN ANTIBODY, SERUM 2020-06-18 Jose Alfredo Crawford MD Jose L son 15:49:00 ISLET ANTIGEN 2 (IA-2) 2020-06-18 Jose Alfredo Crawford MD Gerhard on ANTIBODY 15:49:00 ANTINUCLEAR ANTIBODY HEP-2 2020-06-18 Jose Alfredo Crawford MD derson SUBSTRATE IGG 15:49:00 SMOOTH MUSCLE ANTIBODY SCREEN 2020-06-18 Jose Alfredo Crawford MD 15:49:00 MITOCHONDRIAL ANTIBODIES, M2, 2020-06-18 Jose Alfredo Crawford MD SERUM 15:49:00 DNA ANTIBODY 2020-06-18 Jose Alfredo Crawford MD (DOUBLE-STRANDED) IGG 15:49:00 LIVER/KIDNEY MICROSOME TYPE 1 2020-06-18 Jose Alfredo Crawford MD ANTIBODY, SERUM 15:49:00 GAMMA GLUTAMYL TRANSFERASE 2020-06-18 Jose Alfredo Crawford MD derson 15:49:00 FERRITIN LVL 2020-06-18 Jose Alfredo Crawford MD 15:49:00 CREATINE KINASE 2020-06-18 Jose Alfredo Crawford MD 15:49:00 URINALYSIS WITH MICROSCOPIC 2020-06-18 Jose Alfredo Crawford MD nderson IF INDICATED 15:49:00 PROTEIN / CREATININE RATIO 2020-06-18 Jose Alfredo Crawford MD derson URINE 15:49:00 CYTOKINE PANEL 3 2020-06-18 Jose Alfredo Crawford MD 15:49:00 SEDIMENTATION RATE 2020-06-18 Jose Alfredo Crawford MD NON-AUTOMATED 15:49:00 CYTOKINE PANEL 3 FINAL REPORT 2020-06-18 Jose Alfredo Crawford MD 15:49:00 URINALYSIS MICROSCOPIC 2020-06-18 Jose Alfredo Crawford MD on 15:49:00 HIL[place] MISCELLANEOUS TEST 2020-06-18 Jose Alfredo Crawford MD Jose L son 15:49:00 COMPLETE BLOOD COUNT W/ 2020-06-17 Adriazoljudd, Xochitl VILLEGAS Jose L son DIFFERENTIAL 13:29:00 COMPREHENSIVE METABOLIC PANEL 2020-06-17 Adriazoljudd, Xochitl To 13:29:00 LACTATE DEHYDROGENASE 2020-06-17 Adriazoljudd, Xochitl VILLEGAS Anderso n 13:29:00 MAGNESIUM LEVEL 2020-06-17 Adriazola, Xochitl To 13:29:00 PHOSPHORUS LEVEL 2020-06-17 Adriazola, Xochitl To 13:29:00 Results CBC 2020-06-17 AdriazolXochitl whaley MD 13:29:00 MANUAL DIFFERENTIAL 2020-06-17 AdriazolXochitl whaley MD 13:29:00 GLUCOSE LEVEL 2020-06-17 Adriazola, Xochitl To 13:29:00 BLOOD UREA NITROGEN 2020-06-17 Adriazola, Xochitl To 13:29:00 ELECTROLYTE PANEL 2020-06-17 AdriazolXochitl whaley MD 13:29:00 SERUM CREATININE 2020-06-17 AdriazolXochitl whaley MD 13:29:00 .GLOMERULAR FILTRATION RATE 2020-06-17 Xochitl Cee MD nderson 13:29:00 CALCIUM LEVEL TOTAL 2020-06-17 AdriazolXochitl whaley MD 13:29:00 ALBUMIN LEVEL 2020-06-17 AdriazolXochitl whaley MD 13:29:00 ALKALINE PHOSPHATASE 2020-06-17 StephazolXochitl whaley MD 13:29:00 ALANINE AMINOTRANSFERASE 2020-06-17 StephazolXocihtl whaleye rson 13:29:00 ASPARTATE AMINOTRANSFERASE 2020-06-17 Adriazola, Xochitl Garza derson 13:29:00 TOTAL PROTEIN 2020-06-17 StephazolXochitl whaley MD 13:29:00 FRACTIONATED BILIRUBIN 2020-06-17 Stephazoljudd, Xochitl Hennessy on 13:29:00 COMPLETE BLOOD COUNT W/ 2020-06-10 Adriazola, Xochitl VILLEGAS Jose L son DIFFERENTIAL 13:25:00 COMPREHENSIVE METABOLIC PANEL 2020-06-10 Adriazola, Xochitl To 13:25:00 LACTATE DEHYDROGENASE 2020-06-10 Adriazola, Xochitl Samson n 13:25:00 MAGNESIUM LEVEL 2020-06-10 Adriazola, Xochitl To 13:25:00 PHOSPHORUS LEVEL 2020-06-10 Adriazola, Xochitl To 13:25:00 Results CBC 2020-06-10 Adriazola, Xochitl To 13:25:00 MANUAL DIFFERENTIAL 2020-06-10 Adriazola, Xochitl To 13:25:00 GLUCOSE LEVEL 2020-06-10 Adriazola, Xochitl To 13:25:00 BLOOD UREA NITROGEN 2020-06-10 Adriazola, Xochitl To 13:25:00 ELECTROLYTE PANEL 2020-06-10 Adriazola, Xochitl To 13:25:00 SERUM CREATININE 2020-06-10 Adriazola, Xochitl To 13:25:00 .GLOMERULAR FILTRATION RATE 2020-06-10 Adriazola, Xochitl Whaley nderson 13:25:00 CALCIUM LEVEL TOTAL 2020-06-10 Adriazola, Xochitl To 13:25:00 ALBUMIN LEVEL 2020-06-10 Adriazola, Xochitl To 13:25:00 ALKALINE PHOSPHATASE 2020-06-10 Adriazola, Xochitl To 13:25:00 ALANINE AMINOTRANSFERASE 2020-06-10 Adriazola, Xochitl Gonzaleze rson 13:25:00 ASPARTATE AMINOTRANSFERASE 2020-06-10 Adriazola, Xochitl Garza derson 13:25:00 TOTAL PROTEIN 2020-06-10 Adriazola, Xochitl To 13:25:00 FRACTIONATED BILIRUBIN 2020-06-10 Adriazola, Xochitl VILLEGAS Gerhard on 13:25:00 POTASSIUM LEVEL 2020-05-27 Adriazola, Xochitl To 15:46:00 COMPLETE BLOOD COUNT W/ 2020-05-27 Naida Hampton MD Jose L son DIFFERENTIAL 14:04:00 Chase COMPREHENSIVE METABOLIC PANEL 2020-05-27 Naida Hampton MD 14:04:00 Chase THYROID STIMULATING HORMONE 2020-05-27 Naida Hampton MD nderson 14:04:00 Chase FREE THYROXINE 2020-05-27 Naida Hampton MD 14:04:00 Chase LACTATE DEHYDROGENASE 2020-05-27 Naida Hampton MD n 14:04:00 Chase Results CBC 2020-05-27 Jose Alfredo Crawford MD 14:04:00 MANUAL DIFFERENTIAL 2020-05-27 Jose Alfredo Crawford MD 14:04:00 GLUCOSE LEVEL 2020-05-27 Jose Alfredo Crawford MD 14:04:00 BLOOD UREA NITROGEN 2020-05-27 Jose Alfredo Crawford MD 14:04:00 ELECTROLYTE PANEL 2020-05-27 Jose Alfredo Crawford MD 14:04:00 SERUM CREATININE 2020-05-27 Jose Alfredo Crawford MD 14:04:00 .GLOMERULAR FILTRATION RATE 2020-05-27 Jose Alfredo Crawford MD nderson 14:04:00 CALCIUM LEVEL TOTAL 2020-05-27 Jose Alfredo Crawford MD 14:04:00 ALBUMIN LEVEL 2020-05-27 Jose Alfredo Crawford MD 14:04:00 ALKALINE PHOSPHATASE 2020-05-27 Jose Alfredo Crawford MD 14:04:00 ALANINE AMINOTRANSFERASE 2020-05-27 Jose Alfredo Crawford MD Griffin rson 14:04:00 ASPARTATE AMINOTRANSFERASE 2020-05-27 Jose Alfredo Crawford MD derson 14:04:00 TOTAL PROTEIN 2020-05-27 Jose Alfredo Crawford MD 14:04:00 FRACTIONATED BILIRUBIN 2020-05-27 Jose Alfredo Crawford MD Gerhard on 14:04:00 POTASSIUM LEVEL 2020-04-30 AdriazolaXochitl MD 20:04:00 COMPLETE BLOOD COUNT W/ 2020-04-28 Naida Hampton MD Jose L son DIFFERENTIAL 20:25:00 Chase COMPREHENSIVE METABOLIC PANEL 2020-04-28 Naida aHmpton MD 20:25:00 Chase Results CBC 2020-04-28 Jose Alfredo Crawford MD 20:25:00 MANUAL DIFFERENTIAL 2020-04-28 Jose Alfredo Crawford MD 20:25:00 GLUCOSE LEVEL 2020-04-28 Jose Alfredo Crawford MD 20:25:00 ELECTROLYTE PANEL 2020-04-28 Jose Alfredo Crawford MD 20:25:00 SERUM CREATININE 2020-04-28 Jose Alfredo Crawford MD 20:25:00 .GLOMERULAR FILTRATION RATE 2020-04-28 Jose Alfredo Crawford MD nderson 20:25:00 CALCIUM LEVEL TOTAL 2020-04-28 Jose Alfredo Crawford MD 20:25:00 ALBUMIN LEVEL 2020-04-28 Jose Alfredo Crawford MD 20:25:00 ALKALINE PHOSPHATASE 2020-04-28 Jose Alfredo Crawford MD 20:25:00 ALANINE AMINOTRANSFERASE 2020-04-28 Jose Alfredo Crawford MD Griffin rson 20:25:00 ASPARTATE AMINOTRANSFERASE 2020-04-28 Jose Alfredo Crawford MD An derson 20:25:00 TOTAL PROTEIN 2020-04-28 Jose Alfredo Crawford MD 20:25:00 FRACTIONATED BILIRUBIN 2020-04-28 Jose Alfredo Crawford MD Gerhard on 20:25:00 BLOOD UREA NITROGEN 2020-04-28 Jose Alfredo Crawford MD 20:25:00 COMPLETE BLOOD COUNT W/ 2020-04-16 Jose Alfredo Crawford MD Jose L son DIFFERENTIAL 15:12:00 COMPREHENSIVE METABOLIC PANEL 2020-04-16 Jose Alfredo Crawford MD 15:12:00 LACTATE DEHYDROGENASE 2020-04-16 Jose Alfredo Crawford MD Anderso n 15:12:00 MAGNESIUM LEVEL 2020-04-16 Jose Alfredo Crawford MD 15:12:00 PHOSPHORUS LEVEL 2020-04-16 Jose Alfredo Crawford MD 15:12:00 THYROID STIMULATING HORMONE 2020-04-16 Jose Alfredo Crawford MD nderson 15:12:00 FREE THYROXINE 2020-04-16 Jose Alfredo Crawford MD 15:12:00 TYPE AND SCREEN 2020-04-16 Jose Alfredo Crawford MD 15:12:00 Results CBC 2020-04-16 Jose Alfredo Crawford MD 15:12:00 MANUAL DIFFERENTIAL 2020-04-16 Jose Alfredo Crawford MD 15:12:00 GLUCOSE LEVEL 2020-04-16 Jose Alfredo Crawford MD 15:12:00 BLOOD UREA NITROGEN 2020-04-16 Jose Alfredo Crawford MD 15:12:00 ELECTROLYTE PANEL 2020-04-16 Jose Alfredo Crawford MD 15:12:00 SERUM CREATININE 2020-04-16 Jose Alfredo Crawford MD 15:12:00 .GLOMERULAR FILTRATION RATE 2020-04-16 Jose Alfredo Crawford MD nderson 15:12:00 CALCIUM LEVEL TOTAL 2020-04-16 Jose Alfredo Crawford MD 15:12:00 ALBUMIN LEVEL 2020-04-16 Jose Alfredo Crawford MD 15:12:00 ALKALINE PHOSPHATASE 2020-04-16 Jose Alfredo Crawford MD 15:12:00 ALANINE AMINOTRANSFERASE 2020-04-16 Jose Alfredo Crawford MD Griffin rson 15:12:00 ASPARTATE AMINOTRANSFERASE 2020-04-16 Jose Alfredo Crawford MD derson 15:12:00 TOTAL PROTEIN 2020-04-16 Jose Alfredo Crawford MD 15:12:00 FRACTIONATED BILIRUBIN 2020-04-16 Jose Alfredo Crawford MD Gerhard on 15:12:00 ABORH 2020-04-16 Jose Alfredo Crawford MD 15:12:00 ANTIBODY SCREEN 2020-04-16 Jose Alfredo Crawford MD 15:12:00 CLOT EXPIRATION DATE 2020-04-16 Jose Alfredo Crawford MD 15:12:00 TMP INTERPRETATION ANTIBODY 2020-04-16 Jose Alfredo Crawford MD nderson SCREEN NEGATIVE 15:12:00 ENDOSCOPY NOTE RESULTS 2020-04-15 Guerita Ng MD Gerhard on 13:48:45 UPPER GASTROINTESTINAL 2020-04-15 Guerita Ng MD on ENDOSCOPY OF ESOPHAGUS, 13:33:00 STOMACH, AND DUODENUM WITH CONTROL OF BLEEDING POC VBGLG 2020-04-15 Guerita Ng MD 12:33:00 POC GLUCOSE SCREEN 2020-04-15 Guerita Ng MD 12:00:00 COVID-19 (SARS-COV-2) 2020-04-14 Zenon Durand MD Jose L son PCR-ASYMPTOMATIC MC 12:28:00 TRANSFUSE RED BLOOD CELLS 2020-04-01 Xochitl Cee MD And erson 22:59:50 TYPE AND SCREEN 2020-04-01 Xochitl Cee MD 14:38:00 ABORH 2020-04-01 Xochitl Cee MD 14:38:00 ANTIBODY SCREEN 2020-04-01 Xochitl Cee MD 14:38:00 CLOT EXPIRATION DATE 2020-04-01 Xochitl Cee MD 14:38:00 TMP INTERPRETATION ANTIBODY 2020-04-01 Xochitl Cee MD nderson SCREEN NEGATIVE 14:38:00 TMP CROSSMATCH INTERPRETATION 2020-04-01 Xochitl Cee MD 14:38:00 CONFIRM ABORH TYPE 2020-04-01 Adriazola, Xochitl To 14:36:00 POC GLUCOSE SCREEN 2020-03-31 Adriazola, Xochitl To 18:16:00 MRI BRAIN W WO CONTRAST 2020-03-31 Adriazola, Xochitl VILLEGAS Jose L son 17:57:55 POC GLUCOSE SCREEN 2020-03-31 Adriazola, Xochitl To 17:20:00 NM BONE SCAN WHOLE BODY 2020-03-31 Adriazola, Xochitl VILLEGAS Jose L son 17:12:06 CT CHEST ABDOMEN PELVIS W 2020-03-31 Adriazola, Xochitl VILLEGAS And erson CONTRAST 16:43:08 PREPARE RBC 2020-03-31 Adriazola, Xochitl To 15:06:00 COMPLETE BLOOD COUNT W/ 2020-03-31 Adriazola, Xochitl VILLEGAS Jose L son DIFFERENTIAL 14:00:00 COMPREHENSIVE METABOLIC PANEL 2020-03-31 Adriazola, Xochitl To 14:00:00 LACTATE DEHYDROGENASE 2020-03-31 Adriazola, Xochitl VILLEGAS Anderso n 14:00:00 MAGNESIUM LEVEL 2020-03-31 Adriazola, Xochitl To 14:00:00 PHOSPHORUS LEVEL 2020-03-31 Adriazola, Xochitl To 14:00:00 FREE THYROXINE 2020-03-31 Adriazola, Xochitl To 14:00:00 THYROID STIMULATING HORMONE 2020-03-31 Adriazola, Xochitl Whaley nderson 14:00:00 C REACTIVE PROTEIN 2020-03-31 AdriazolaXochitl MD 14:00:00 URINALYSIS WITH MICROSCOPIC 2020-03-31 AdriazolaXochitl MD nderson IF INDICATED 14:00:00 PROTEIN / CREATININE RATIO 2020-03-31 Adriazola, Xochitl Garza derson URINE 14:00:00 Results CBC 2020-03-31 Adriazola, Xochitl To 14:00:00 MANUAL DIFFERENTIAL 2020-03-31 AdriazolaXochitl MD 14:00:00 GLUCOSE LEVEL 2020-03-31 Adriazola, Xochitl To 14:00:00 BLOOD UREA NITROGEN 2020-03-31 Adriazola, Xochitl To 14:00:00 ELECTROLYTE PANEL 2020-03-31 Adriazola, Xochitl To 14:00:00 SERUM CREATININE 2020-03-31 Adriazola, Xochitl To 14:00:00 .GLOMERULAR FILTRATION RATE 2020-03-31 Adriazola, Xochitl Whaley nderson 14:00:00 CALCIUM LEVEL TOTAL 2020-03-31 Adriazola, Xochitl To 14:00:00 ALBUMIN LEVEL 2020-03-31 Adriazola, Xochitl To 14:00:00 ALKALINE PHOSPHATASE 2020-03-31 Adriazola, Xochitl To 14:00:00 ALANINE AMINOTRANSFERASE 2020-03-31 Adriazola, Xochitl Gonzaleze rson 14:00:00 ASPARTATE AMINOTRANSFERASE 2020-03-31 Adriazola, Xochitl Garza derson 14:00:00 TOTAL PROTEIN 2020-03-31 Adriazola, Xochitl To 14:00:00 FRACTIONATED BILIRUBIN 2020-03-31 Adriazola, Xochitl Hennessy on 14:00:00 URINALYSIS MICROSCOPIC 2020-03-31 Adriazola, Xochitl Hennessy on 14:00:00 URINALYSIS WITH MICROSCOPIC 2020-03-05 Adriazola, Xochitl Whaley nderson IF INDICATED 19:43:00 PROTEIN / CREATININE RATIO 2020-03-05 Adriazola, Xochtil chiangson URINE 19:43:00 URINALYSIS MICROSCOPIC 2020-03-05 Adriazola, Xochitl Hennessy on 19:43:00 COMPLETE BLOOD COUNT W/ 2020-03-05 Adriazola, Xochitl VILLEGAS Jose L son DIFFERENTIAL 19:36:00 COMPREHENSIVE METABOLIC PANEL 2020-03-05 Adriazola, Xochitl To 19:36:00 LACTATE DEHYDROGENASE 2020-03-05 Adriazola, Xochitl Hennessyo n 19:36:00 MAGNESIUM LEVEL 2020-03-05 Adriazola, Xochitl To 19:36:00 PHOSPHORUS LEVEL 2020-03-05 Adriazola, Xochitl To 19:36:00 C REACTIVE PROTEIN 2020-03-05 Adriazola, Xochitl To 19:36:00 THYROID STIMULATING HORMONE 2020-03-05 Adriazola, Xochitl Whaley nderson 19:36:00 FREE THYROXINE 2020-03-05 Adriazola, Xochitl To 19:36:00 Results CBC 2020-03-05 Adriazola, Xochitl To 19:36:00 MANUAL DIFFERENTIAL 2020-03-05 Adriazola, Xochitl To 19:36:00 GLUCOSE LEVEL 2020-03-05 Adriazola, Xochitl To 19:36:00 BLOOD UREA NITROGEN 2020-03-05 Adriazola, Xochitl To 19:36:00 ELECTROLYTE PANEL 2020-03-05 Xochitl Cee MD 19:36:00 SERUM CREATININE 2020-03-05 Xochitl Cee MD 19:36:00 .GLOMERULAR FILTRATION RATE 2020-03-05 Xochitl Cee MD nderson 19:36:00 CALCIUM LEVEL TOTAL 2020-03-05 Jaye, Xochitl To 19:36:00 ALBUMIN LEVEL 2020-03-05 Jaye, Xochitl To 19:36:00 ALKALINE PHOSPHATASE 2020-03-05 Stephazoljudd, Xochitl To 19:36:00 ALANINE AMINOTRANSFERASE 2020-03-05 Xochitl Cee MD Griffin rson 19:36:00 ASPARTATE AMINOTRANSFERASE 2020-03-05 Jaye, Xochitl Garza derson 19:36:00 TOTAL PROTEIN 2020-03-05 Xochitl Cee MD 19:36:00 FRACTIONATED BILIRUBIN 2020-03-05 Xochitl Cee MD Gerhard on 19:36:00 PATHOLOGY BIOPSY SPECIMEN 2020-02-20 Guerita Ng MD And erson INTERPRETATION 19:34:15 ENDOSCOPY NOTE RESULTS 2020-02-20 Guerita Ng MD Gerhard on 19:17:54 UPPER GASTROINTESTINAL 2020-02-20 Guerita Ng MD Gerhard on ENDOSCOPY OF ESOPHAGUS, 19:05:00 STOMACH, AND DUODENUM WITH BIOPSY DIAGNOSTIC FLEXIBLE 2020-02-20 Guerita Ng MD COLONOSCOPY PROXIMAL TO 19:05:00 SPLENIC FLEXURE POC GLUCOSE SCREEN 2020-02-20 Guerita Ng MD 18:37:00 SURGICAL BIOPSY HISTORIC 2020-02-20 MD Nahum Griffin rson 17:00:00 Pathology COVID-19 (SARS-COV-2) 2020-02-18 Shruthi Parikh MD Griffin rson PCR-ASYMPTOMATIC MC 12:57:00 COMPLETE BLOOD COUNT W/ 2020-02-02 Jose Alfredo Crawford MD Jose L son DIFFERENTIAL 15:15:00 COMPREHENSIVE METABOLIC PANEL 2020-02-02 Jose Alfredo Crawford MD 15:15:00 LACTATE DEHYDROGENASE 2020-02-02 Jose Alfredo Crawford MD Anderso n 15:15:00 MAGNESIUM LEVEL 2020-02-02 Jose Alfredo Crawford MD 15:15:00 PHOSPHORUS LEVEL 2020-02-02 Jose Alfredo Crawford MD 15:15:00 THYROID STIMULATING HORMONE 2020-02-02 Jose Alfredo Crawford MD nderson 15:15:00 FREE THYROXINE 2020-02-02 Jose Alfredo Crawford MD 15:15:00 HEMOGLOBIN A1C 2020-02-02 Jose Alfredo Crawford MD 15:15:00 Results CBC 2020-02-02 Jose Alfredo Crawford MD 15:15:00 MANUAL DIFFERENTIAL 2020-02-02 Jose Alfredo Crawford MD 15:15:00 GLUCOSE LEVEL 2020-02-02 Jose Alfredo Crawford MD 15:15:00 ELECTROLYTE PANEL 2020-02-02 Jose Alfredo Crawford MD 15:15:00 SERUM CREATININE 2020-02-02 Jose Alfredo Crawford MD 15:15:00 .GLOMERULAR FILTRATION RATE 2020-02-02 Jose Alfredo Crawford MD nderson 15:15:00 CALCIUM LEVEL TOTAL 2020-02-02 Jose Alfredo Crawford MD 15:15:00 ALBUMIN LEVEL 2020-02-02 Jose Alfredo Crawford MD 15:15:00 ALKALINE PHOSPHATASE 2020-02-02 Jose Alfredo Crawford MD 15:15:00 ALANINE AMINOTRANSFERASE 2020-02-02 Jose Alfredo Crawford MD Griffin rson 15:15:00 ASPARTATE AMINOTRANSFERASE 2020-02-02 Jose Alfredo Crawford MD derson 15:15:00 TOTAL PROTEIN 2020-02-02 Jose Alfredo Crawford MD 15:15:00 FRACTIONATED BILIRUBIN 2020-02-02 Jose Alfredo Crawford MD on 15:15:00 BLOOD UREA NITROGEN 2020-02-02 Jose Alfredo Crawford MD 15:15:00 URINALYSIS WITH MICROSCOPIC 2020-02-02 Jose Alfredo Crawford MD nderson IF INDICATED 15:06:00 PROTEIN / CREATININE RATIO 2020-02-02 Jose Alfredo Crawford MDson URINE 15:06:00 URINALYSIS MICROSCOPIC 2020-02-02 Jose Alfredo Crawford MD on 15:06:00 URINE CULTURE 2020-01-23 Jose Alfredo Crawford MD 18:05:00 URINALYSIS WITH MICROSCOPIC 2020-01-23 Jose Alfredo Crawford MD nderson IF INDICATED 18:05:00 URINALYSIS MICROSCOPIC 2020-01-23 Crawford, Amishi Y MD Gerhard on 18:05:00 [U] XRAY FEMUR 2 VWS RIGHT 2020-01-12 [facility] [place] [id number] 00:00:00 Physicians POC GLUCOSE SCREEN 2020-01-08 Provider, Chrystal To 17:00:00 POC GLUCOSE SCREEN 2020-01-08 Provider, Chrystal To 16:41:00 NM BONE SCAN WHOLE BODY 2020-01-08 Xochitl Cee MD Jose L son 16:36:53 CT CHEST ABDOMEN PELVIS W 2020-01-08 Jaye, Xochitl VILLEGAS And erson CONTRAST 16:00:23 POC GLUCOSE SCREEN 2020-01-08 Provider, Chrystal To 14:59:00 COMPLETE BLOOD COUNT W/ 2020-01-08 Jaye, Xochitl VILLEGAS Jose L son DIFFERENTIAL 13:24:00 COMPREHENSIVE METABOLIC PANEL 2020-01-08 Xochitl Cee MD 13:24:00 LACTATE DEHYDROGENASE 2020-01-08 Xochitl Cee MD Anderso n 13:24:00 MAGNESIUM LEVEL 2020-01-08 Xochitl Cee MD 13:24:00 PHOSPHORUS LEVEL 2020-01-08 StephazolXochitl whaley MD 13:24:00 THYROID STIMULATING HORMONE 2020-01-08 Xochitl Cee MD nderson 13:24:00 FREE THYROXINE 2020-01-08 Xochitl Cee MD 13:24:00 C REACTIVE PROTEIN 2020-01-08 Xochitl Cee MD 13:24:00 Results CBC 2020-01-08 Xochitl Cee MD 13:24:00 MANUAL DIFFERENTIAL 2020-01-08 Xochitl Cee MD 13:24:00 GLUCOSE LEVEL 2020-01-08 Xochitl Cee MD 13:24:00 BLOOD UREA NITROGEN 2020-01-08 Xochitl Cee MD 13:24:00 ELECTROLYTE PANEL 2020-01-08 Xochitl Cee MD 13:24:00 SERUM CREATININE 2020-01-08 Xochitl Cee MD 13:24:00 .GLOMERULAR FILTRATION RATE 2020-01-08 Xochitl Cee MD nderson 13:24:00 CALCIUM LEVEL TOTAL 2020-01-08 Xochitl Cee MD 13:24:00 ALBUMIN LEVEL 2020-01-08 Xochitl Cee MD 13:24:00 ALKALINE PHOSPHATASE 2020-01-08 Xochitl Cee MD 13:24:00 ALANINE AMINOTRANSFERASE 2020-01-08 Xochitl Cee MD rson 13:24:00 ASPARTATE AMINOTRANSFERASE 2020-01-08 Xochitl Cee MDson 13:24:00 TOTAL PROTEIN 2020-01-08 Xochitl Cee MD 13:24:00 FRACTIONATED BILIRUBIN 2020-01-08 Xochitl Cee MD on 13:24:00 URINE CULTURE 2019-12-31 Xochitl Cee MD 13:51:00 URINALYSIS WITH MICROSCOPIC 2019-12-31 Xochitl Cee MD nderson IF INDICATED 13:51:00 URINALYSIS MICROSCOPIC 2019-12-31 Xochitl Cee MD on 13:51:00 [QL] CBC (INCLUDES DIFF/PLT) 2019-12-15 [facility] 00:00:00 Physicians [QL] SED RATE BY MODIFIED 2019-12-15 [facility] 00:00:00 Physicians [QL] C-REACTIVE PROTEIN 2019-12-15 [facility] 00:00:00 Physicians [U] XRAY FEMUR 2 VWS RIGHT 2019-07-17 [place] [address] 00:00:00 Physicians Post Op Promis 29 Survey 2019-06-20 [facility] 00:00:00 Physicians Incision AND drainage 2019-05-22 [facility] ermann 05:00:00 Post Op Promis 29 Survey 2019-01-29 [facility] 00:00:00 Physicians Incision AND 2019-01-02 [facility] drainage<sup>1</sup> 05:00:00 Post Op Promis 29 Survey 2019-01-01 [facility] 00:00:00 Physicians [U] XRAY FEMUR 2 VWS RIGHT 2019-01-01 [place] [address] 00:00:00 Physicians [U] XRAY FEMUR 2 VWS RIGHT 2018-12-26 [place] [address] 00:00:00 Physicians Insertion of P[facility] 2018[facility]12-13 [facility] (peripherally inserted 05:00:00 central catheter) Irrigation of wound 2018-12-12 [facility] Her sullivan 05:00:00 [QLH] CBC (INCLUDES DIFF/PLT) 2018-12-04 [facility] 00:00:00 Physicians CPL - CRP High Sensitivity 2018-12-04 [facility] 00:00:00 Physicians CPL - Sedimentation Rate 2018-12-04 [facility] (ESR) 00:00:00 Physicians [U] XRAY FEMUR 2 VWS RIGHT 2018-12-03 [facility] [place] [address] [facility]:00 Physicians Post Op Promis 29 Survey 2018-11-14 [facility] 00:00:00 Physicians Surgical 2018-10-24 [facility] procedure<sup>2</sup> 06:00:00 [U] XRAY FEMUR 2 VWS RIGHT 2018-09-23 [facility] [place] [address] [facility]:[address] Femur with contrast [id number] 2018-09-13 Uni [facility] 00:00:[address] Femur w and wo contrast 2018-09-06 [facility] [address] 00:00:00 Physicians [U] XRAY FEMUR 2 VWS RIGHT 2018-05-09 Unive [facility] [address] 00:00:00 Physicians [U] XRAY FEMUR 2 VWS RIGHT 2018-03-28 [facility] [place] [address] 00:00:00 Physicians [U] XRAY FEMUR 2 VWS RIGHT 2017-12-18 [facility] [place] [address] 00:[facility]:00 Physicians Biopsy of bone 2017-10-22 [facility] 06:00:00 Repair of femur 2017-10-22 [facility] 06:00:00 Total left nephrectomy 2012-09-06 [facility] 06:00:00 Coronary artery stent [facility] Plan of Care Planned Activity Planned Date Details Comments Source Future Scheduled 2021-03-27 INFLUENZA VACCINE [place] [facility] 00:00:00 [code = INFLUENZA VACCINE] Diagnostic Test 2019-07-30 [U] XRAY FEMUR 2 VWS [facility] Pending 00:00:00 RIGHT 28620 [code = Physicia ns 98949] Diagnostic Test 2019-07-30 [U] XRAY FEMUR 2 VWS [facility] Pending 00:00:00 RIGHT 89986 [code = Physicia ns 99387] Diagnostic Test 2019-07-30 [U] XRAY FEMUR 2 VWS [facility] Pending 00:00:00 RIGHT 02680 [code = Physicia ns 00881] Diagnostic Test 2019-07-30 [U] XRAY FEMUR 2 VWS [facility] Pending 00:00:00 RIGHT 39353 [code = Physicia ns 65120] Future Scheduled 2016 COLONOSCOPY [facility] 00:00:00 SCREENING [code = COLONOSCOPY SCREENING] Future Scheduled 2016 SHINGLES VACCINES [place] [facility] 00:00:00 (#1) [code = SHINGLES VACCINES (#1)] Future Scheduled 1982 COVID-19 VACCINE (1) Josefa l[facility]yn [facility] 00:00:00 [code = COVID-19 VACCINE (1)] Encounters Start End Encounter Admission Attending Care Care Encounter Source Date/Time Date/Time Type Type Clinicians Facility Department ID 2020-09-10 Inpatient U [facility] [id number] 14:25:00 [facility] 2020-07-07 Outpatient SYSTEM, KUSHAL FATIMA [id number] 12:25:20 PROVIDER Gerhard o mynor 2020-05-18 Outpatient SYSTEM, KUSHAL FATIMA [id number] 16:51:23 PROVIDER Gerhard o mynor 2020-04-01 Outpatient KUSHAL FATIMA [id number] 17:51:34 Andersvincenzo lowe 2020-03-31 Outpatient KUSHAL FATIMA [id number] 09:40:27 Andersvincenzo lowe 2020-02-20 Outpatient KUSHAL LAINEZ MDA [id number] 12:50:17 ZAID lowe 2020-02-20 Outpatient KUSHAL LAINEZ MDA [id number] 12:50:17 ZAID lowe 2019-05-21 Outpatient [facility] [id number] 09:56:44 [facility] 2020-12-15 2020-12-15 Appointmen SANDRINE GARZA Orthopedics [id number] Univers 08:00:00 08:00:00 t; VICTORIANO GARZA, at [facility] BASURTO M.D. Orthopedic Physi ci and Spine [facility], POD 3 2020-12-06 2020-12-07 Outpatient MELISSA JIMENEZ MDA MDA [id number] 15:30:33 07:30:00 OLE Gerhardmaxim lowe 2020-12-05 2020-12-05 Outpatient MELISSA SALDAÑA MDA MDA [id number] 07:34:08 23:59:00 PAULINE lowe 2020-12-05 2020-12-05 Outpatient MELISSA HAND [facility] [id number] 08:22:45 08:22:45 MILIND lowe 2020-12-01 2020-[facility]-01 [facility] Orthopedics [id number] Univers 08:00:00 08:00:00 t; VICTORIANO GARZA, at [facility] BASURTO M.D. Orthopedic Physi ci and Spine [facility], POD 3 2020-11-24 2020-11-24 Outpatient MELISSA MORRIS KUSHAL FATIMA [id number] 13:23:07 14:46:27 JOVANA lowe 2020-11-17 2020-11-17 [facility] [id number] Univers 15:00:00 15:00:00 t; [place] [facility], [facility] Orthopedic Physi ci and Spine [facility], POD 3 2020-11-14 2020-11-14 Outpatient MELISSA HAND, KUSHAL FATIMA [id number] 08:57:24 08:57:24 MILIND lowe 2020-11-11 2020-11-11 Outpatient MELISSA CRAWFORD KUSHAL FATIMA [id number] 07:51:56 23:59:00 JOSE ALFREDO lowe 2020-11-11 2020-11-11 Outpatient MELISSA JAYE, KUSHAL FATIMA [id number] 08:17:30 09:55:34 XOCHITL lowe 2020-11-03 2020-11-03 [facility] [id number] Univers 10:30:00 10:30:00 t; [place] [facility] 2020-11-02 2020-11-02 Outpatient Greg [id number] 09:12:00 23:59:00 Victoriano [id number] [place] [id number] 2020-10-27 2020-10-27 Outpatient MELISSA MORRIS MDA MDA [id number] 13:10:15 14:23:05 JOVANA lowe 2020-10-26 2020-10-26 Outpatient MELISSA PATRICIAKUSHAL MDA [id number] 14:41:23 15:13:31 EVETTE lowe 2020-10-22 2020-10-22 Appointmen SANDRINE GARZA [facility] [id number] Univers 09:30:00 09:30:00 t; VICTORIANO GARZA ity of [place], M.D. [place] [facility] 2020-10-19 2020-10-19 Outpatient Greg [facility] [id number] 10:33:00 23:59:00 Victoriano 13 [place] 2020-10-19 2020-10-19 Outpatient Greg [facility] [id number] 10:33:00 23:59:00 Victoriano Ansari [place] 2020-10-19 2020-10-19 Outpatient [facility] [id number] MH 10:33:00 10:33:00 Orthop e [facility]ospita l 2020-10-19 2020-10-19 Appointmen [facility] [id number] Univers 08:00:00 08:00:00 t; VICTORIANO GARZA ity of [place], M.D. [place] [facility] 2020-10-06 2020-10-06 Appointmen [facility] Orthopedics [id number] Univers 09:00:00 09:00:00 t; [place], Trauma it y of [facility] 2020-09-30 2020-09-30 Outpatient DANTE BAILON MDA MDA [id number] 12:53:52 14:18:22 Gerhard lowe 2020-09-30 2020-09-30 Outpatient MELISSA CRAWFORD MDA MDA [id number] 10:16:16 12:29:07 JOSE ALFREDO lowe 2020-09-29 2020-09-29 Outpatient MELISSA CRAWFORD MDA MDA [id number] MD 12:27:46 23:59:00 JOSE ALFREDO Gerhard o n 2020-09-29 2020-09-29 Outpatient MELSISA CRAWFORD MDA MDA [id number] MD 14:37:31 14:37:31 JOSE ALFREDO Oweners o n 2020-09-29 2020-09-29 Outpatient MELISSA CRAWFORD MDA MDA [id number] MD 13:05:51 13:05:51 JOSE ALFREDO Gerhard o n 2020-09-29 2020-09-29 Outpatient MELISSA MORRIS MDA MDA [id number] MD 12:52:18 12:52:18 JOVANA Hennessy o n 2020-09-29 2020-09-29 Outpatient MELISSA CRAWFORD MDA MDA [id number] MD 09:51:12 12:26:00 JOSE ALFREDO Gerhard o n 2020-09-29 2020-09-29 Outpatient MELISSA CRAWFORD MDA MDA [id number] MD 11:46:17 11:46:17 JOSE ALFREDO Oweners o n 2020-09-23 2020-09-23 Outpatient MELISSA CEE MDA MDA [id number] MD 15:35:06 16:05:38 XOCHITL lowe 2020-09-10 2020-09-16 Outpatient Greg [facility] [id number] 14:25:00 12:24:00 Victoriano Gresham [place] 2020-09-14 2020-09-14 Appointmen SANDRINE GARZA [facility] [id number] Univers 08:00:00 08:00:00 t; VICTORIANO GARZA ity [place], M.D. [place] [facility] 2020-09-10 2020-09-10 Outpatient Greg [facility] [id number] 14:25:00 14:25:00 Victoriano Gresham [place] 2020-09-10 2020-09-10 Appointmen SANDRINE GARZA Orthopedics [id number] Univers 08:30:00 08:30:00 t; VICTORIANO GARZA, at [facility] Giovanna M.D. [facility] [place] [facility] [place] [facility] 2020-09-08 2020-09-08 Outpatient MELISSA ARTURO, MDA MDA [id number] MD 15:45:00 23:59:00 JOVANA Oweners o mynor 2020-09-08 2020-09-08 Outpatient MELISSA MORRIS, MDA MDA [id number] MD 14:33:34 16:30:26 JOVANA Hennessy o mynor 2020-09-06 2020-09-06 Outpatient MELISSA JIMENEZ, MDA MDA [id number] MD 10:28:05 23:59:00 OLE Hennessy o mynor 2020-09-03 2020-09-03 Outpatient MELISSA CRAWFORD, MDA MDA [id number] MD 09:34:20 23:59:00 JOSE ALFREDO Hennessy o mynor 2020-09-03 2020-09-03 Outpatient EL JEFFREY, MDA MDA [id number] MD 09:09:22 09:22:30 MORRO Hennessy o mynor 2020-09-03 2020-09-03 Outpatient MELISSA HOYT, MDA MDA [id number] MD 08:58:06 09:01:24 KATERINA Hennessy o mynor 2020-08-26 2020-08-26 Outpatient EL STEPHAZOLA, MDA MDA [id number] MD 08:57:23 23:59:00 XOCHITL Hennessy o mynor 2020-08-26 2020-08-26 Outpatient MELISSA CRAWFORD, MDA MDA [id number] 09:14:15 10:21:45 JOSE ALFREDO Hennessy o mynor 2020-08-10 2020-08-10 Outpatient PATRICIA, MDA MDA [id number] 13:00:52 13:43:27 EVETTE lowe 2020-08-06 2020-08-06 Outpatient MELISSA JIMENEZ, MDA MDA [id number] MD 07:33:17 07:42:18 OLE Oweners o mynor 2020-07-29 2020-07-29 Outpatient EL ADRIAZOLA, MDA MDA [id number] 12:50:29 23:59:00 XOCHITL Hennessy o mynor 2020-07-29 2020-07-29 Outpatient MELISSA CRAWFORD, MDA MDA [id number] MD 13:27:34 15:16:30 JOSE ALFREDO Oweners o mynor 2020-07-29 2020-07-29 Outpatient EL ADRIAZOLA, MDA MDA [id number] 12:45:00 12:49:00 XOCHITL Oweners o mynor 2020-07-14 2020[facility] [id number] [facility] 08:30:00 08:30:00 t; [place], [facility] 2020-07-09 2020-07-09 Outpatient EL CRAWFORD, MDA MDA [id number] MD 09:00:00 23:59:00 AMIMALIAI Gerhard o n 2020-07-09 2020-07-09 Outpatient EL ADRIAZOLA, MDA MDA [id number] MD 09:38:48 11:02:37 XOCHITL Gerhard o n 2020-06-28 2020-06-28 Outpatient EL CRAWFORD, MDA MDA [id number] MD 10:20:52 23:59:00 WOLFI Gerhard o n 2020-06-28 2020-06-28 Outpatient EL CRAWFORD, MDA MDA [id number] MD 08:55:12 10:21:24 WOLFI Gerhard o n 2020-06-25 2020-06-25 Outpatient EL ADRIAZOLA, MDA MDA [id number] 09:37:10 23:59:00 XOCHITL Gerhard o n 2020-06-25 2020-06-25 Outpatient EL CRAWFORD, MDA MDA [id number] MD 14:54:23 14:54:23 WOLFI Gerhard o n 2020-06-25 2020-06-25 Outpatient EL ADRIAZOLA, MDA MDA [id number] MD 12:00:29 12:00:29 XOCHITL Gerhard o n 2020-06-25 2020-06-25 Outpatient EL ADRIAZOLA, MDA MDA [id number] 09:57:21 09:57:21 XOCHITL Gerhard o n 2020-06-25 2020-06-25 Outpatient EL ADRIAZOLA, MDA MDA [id number] 09:16:34 09:16:34 XOCHITL Gerhard o n 2020-06-18 2020-06-18 Outpatient EL CRAWFORD, MDA MDA [id number] MD 10:48:38 10:48:38 JOSE ALFREDO Gerhard o n 2020-06-18 2020-06-18 Outpatient EL CRAWFORD, MDA MDA [id number] MD 10:19:53 10:26:50 WOLFI Gerhard o n 2020-06-17 2020-06-17 Outpatient EL ADRIAZOLA, MDA MDA [id number] MD 08:20:28 08:24:10 XOCHITL Oweners o n 2020-06-17 2020-06-17 Outpatient [facility], MDA MDA [id number] MD 08:01:12 08:01:12 JOSE ALFREDO Oweners o n 2020-06-10 2020-06-10 Outpatient [facility], MDA MDA [id number] MD 12:28:30 12:28:30 JOSE ALFREDO Oweners o n 2020-06-10 2020-06-10 [facility] [id number] MD 08:16:01 08:19:30 XOCHITL Oweners o n 2020-05-28 2020-05-28 Outpatient [facility], MDA MDA [id number] MD 14:19:54 17:40:40 JOSE ALFREDO Oweners o n 2020-05-27 2020-05-27 [facility] MDA [id number] 10:19:36 23:59:00 XOCHITL Oweners o n 2020-05-27 2020-05-27 Outpatient [facility], MDA MDA [id number] MD 08:50:48 10:18:00 JOSE ALFREDO Gerhard o n 2020-05-27 2020-05-27 [facility] MDA [id number] MD 09:13:55 10:06:46 XOCHITL Gerhard o n 2020-04-30 2020-04-30 Outpatient [facility], MDA MDA [id number] 15:08:26 16:21:38 JOSE ALFREDO Gerhard o n 2020-04-30 2020-04-30 [facility] MDA [id number] 14:51:37 14:56:06 XOCHITL Gerhard o n 2020-04-29 2020-04-29 Outpatient [facility], MDA MDA [id number] MD 08:39:17 08:39:17 JOSE ALFREDO Oweners o n 2020-04-28 2020-04-28 Outpatient [facility], MDA MDA [id number] 13:45:00 23:59:00 JOSE ALFREDO Gerhard o n 2020-04-28 2020-04-28 Outpatient [facility], MDA MDA [id number] 13:22:09 15:27:34 JOVANA Gerhard o n 2020-04-16 2020-04-16 Outpatient MELISSA CRAWFORD, MDA MDA [id number] MD 09:38:54 23:59:00 JOSE ALFREDO Oweners o n 2020-04-16 2020-04-16 Outpatient MELISSA CRAWFORD, MDA MDA [id number] MD 10:17:44 11:35:52 JOSE ALFREDO Gerhard o n 2020-04-15 2020-04-15 Outpatient MELISSA NG, MDA Carina/Hep/Nu [id number] MD 06:30:00 10:55:00 GUERITA cervantes Gerhard o n 2020-04-14 2020-04-14 AppointSANDRINE Busch Orthopedics [id number] [facility] 08:30:00 08:30:00 [facility] J[facility]H Orthopedic Physi ci and Spine [facility] 2020-04-14 2020-04-14 Outpatient MELISSA CRAWFORD, MDA MDA [id number] MD 07:27:28 07:27:28 JOSE ALFREDO Oweners o n 2020-04-14 2020-04-14 Outpatient MELISSA CRAWFORD, MDA MDA [id number] 07:22:16 07:22:16 JOSE ALFREDO Gerhard o n 2020-04-07 2020-04-07 Outpatient ARTURO, MDA MDA [id number] 13:10:51 14:22:42 JOVANA Oweners o n 2020-04-02 2020-04-02 Outpatient EL ADRIAZOLA, MDA MDA [id number] 15:23:24 15:23:24 XOCHITL Gerhard o n 2020-04-01 2020-04-01 Outpatient EL ADRIAZOLA, MDA MDA [id number] 12:27:38 23:59:00 XOCHITL Gerhard o n 2020-04-01 2020-04-01 Outpatient EL ADRIAZOLA, MDA MDA [id number] 09:15:00 12:26:00 XOCHITL Gerhard o n 2020-04-01 2020-04-01 Outpatient MELISSA CRAWFORD, MDA MDA [id number] 09:42:50 12:03:29 JOSE ALFREDO Gerhard o n 2020-03-31 2020-03-31 Outpatient EL ADRIAZOLA, MDA MDA [id number] 11:40:43 11:40:43 XOCHITL Gerhard o n 2020-03-31 2020-03-31 Outpatient EL ADRIAZOLA, MDA MDA [id number] 09:03:02 09:03:02 XOCHITL lowe 2020-03-31 2020-03-31 Outpatient EL ADRIAZOLA, MDA MDA [id number] 09:02:24 09:02:24 XOCHITL lowe 2020-03-31 2020-03-31 Outpatient EL ADRIAZOLA, MDA MDA [id number] 09:02:06 09:02:06 XOCHITL lowe 2020-03-31 2020-03-31 Outpatient EL ADRIAZOLA, MDA MDA [id number] 08:44:14 08:50:38 XOCHITL lowe 2020-03-31 2020-03-31 Outpatient EL ADRIAZOLA, MDA MDA [id number] 00:00:00 00:00:00 XOCHITL lowe 2020-03-10 2020-03-10 AppointSANDRINE Busch Orthopedics [id number] [facility] 08:30:00 08:30:00 t; ROCK HAMILTON [facility] JOSH WILKERSON [facility] [place] PA-C Medicine Physici [place] [facility] 2020-03-05 2020-03-08 Outpatient EL ADRIAZOLA, MDA MDA [id number] 14:44:34 07:54:58 XOCHITL lowe 2020-03-05 2020-03-05 Outpatient EL ADRIAZOLA, MDA MDA [id number] 14:22:36 14:27:05 XOCHITL lowe 2020-02-25 2020-02-25 Outpatient EL ARTURO, MDA MDA [id number] 13:48:29 15:58:50 JOVANA lowe 2020-02-20 2020-02-20 Outpatient EL HERNANDEZ, MDA Carina/Hep/Nu [id number] 12:21:11 16:00:00 GUERITA lowe 2020-02-19 2020-02-19 Outpatient EL CRAWFORD, MDA MDA [id number] 07:09:24 07:09:24 JOSE ALFREDO lowe 2020-02-18 2020-02-18 Outpatient EL CRAWFORD, MDA MDA [id number] 07:53:04 07:53:04 JOSE ALFREDO lowe 2020-02-06 2020-02-09 Outpatient MELISSA CRAWFORD MDA MDA [id number] 13:43:39 08:03:08 JOSE ALFREDO lowe 2020-01-14 2020-01-14 Appointmen SANDRINE HAMILTON Orthopedics [id number] Univers 08:30:00 08:30:00 t; ROCK HAMILTON, Trauma it y of [place], [facility] 2020-01-09 2020-01-09 Outpatient EL STEPHAZOLA, MDA MDA [id number] 13:10:21 17:11:10 XOCHITL lowe 2020-01-08 2020-01-08 Outpatient EL ADRIAZOLA, MDA MDA [id number] 08:26:11 08:26:11 XOCHITL lowe 2020-01-08 2020-01-08 Outpatient EL ADRIAZOLA, MDA MDA [id number] 08:25:54 08:25:54 XOCHITL lowe 2019-12-12 2019-12-12 Outpatient EL STEPHAZOLJudd, MDA MDA [id number] 13:35:44 13:35:44 XOCHITL lowe 2019-11-19 2019-11-19 Appointmen SANDRINE GARZA Orthopedics [id number] Univers 14:00:00 14:00:00 t; VICTOR[facility] 2019-11-14 2019-11-15 Outpatient MELISSA CRWAFORD MDA MDA [id number] 11:39:03 08:19:11 JOSE ALFREDO lowe 2019-10-22 2019-10-22 Appointmen SANDRINE GARZA Orthopedics [id number] Univers 08:00:00 08:00:00 t; VICTOR[facility]O [facility] [place] Ku Orthopedic Physi ci and [facility] 2019-10-17 2019-10-17 Outpatient MELISSA CRAWFORD MDA MDA [id number] 10:16:54 13:25:19 JOSE ALFREDO Hennessy o mynor 2019-09-24 2019-09-24 Appointmen SANDRINE GARZA Orthopedics [id number] Univers 08:00:00 08:00:00 t; VICTORIANO GARZA, at [facility] Kings BASURTO [facility] Physici [place] [facility] 2019-09-12 2019-09-17 Outpatient MELISSA CRAWFORD MDA KUSHAL [id number] 10:10:18 07:21:15 JOSE ALFREDO lowe 2019-09-02 2019-09-02 [facility] [id number] Univers 10:00:00 10:00:00 t; [facility]H WILKERSON [place] DAISYMelodie [facility] 2019-08-15 2019-08-15 Outpatient MELISSA CEE KUSHAL FATIMA [id number] 10:19:04 22:18:49 XOCHITL lowe 2019-08-13 2019-08-13 [facility] Orthopedics [id number] Univers 08:30:00 08:30:00 t; R[place] HAMILTON [facility] PA Orthopedic Physi ci and Spine [facility] 2019-07-30 2019-07-30 [facility] Orthopedics [id number] Univers 09:00:00 09:00:00 t; [place] HAM[place] [facility] Orthopedic Physi ci and Spine [facility] 2019-07-18 2019-07-18 Outpatient MELISSA CRAWFORD KUSHAL FATIMA [id number] 11:00:39 14:20:57 JOSE ALFREDO lowe 2019-07-16 2019-07-16 [facility] Orthopedics [id number] Univers 08:30:00 08:30:00 t; [place] HAM[place] [facility] MSSelin [facility] Phys[facility] ci [facility] 2019-07-02 2019-07-02 [facility] Orthopedics [id number] Univers 08:30:00 08:30:00 t; [place] HAM[place] [facility] MSSelin [facility] PAC Orthopedic Physi ci and Spine [facility] 2019-06-25 2019-06-25 [facility] [id number] Univers 10:00:00 10:00:00 t; VICTORIANO GARZA ity of [place], M.D. [place] M.D. Physici ans 2019-06-18 2019-06-18 AppointSANDRINE Terrell Orthopedics [id number] Univers 08:30:00 08:30:00 t; [facility] Orthopedic Physi ci and [facility] 2019-06-06 2019-06-06 Outpatient MELISSA CEE, [facility] [id number] 12:42:05 21:29:05 XOCHITL Hennessy o n 2019-06-03 2019-06-05 Outpatient Greg [facility] [id number] 14:10:00 19:40:00 Victoriano 12 [place] 2019-06-03 2019-06-03 AppointSANDRINE Terrell [facility] [id number] Univers 09:00:00 09:00:00 t; VICTORIANO GARZA ity of [place], M.D. [place] M.D. Physici ans 2019-06-03 2019-06-03 Inpatient [facility] [id number] 14:10:00 05:16:00 Orthop e dic [facility] Hospita l 2019-05-27 2019-05-27 Appointleonel HAMILTON [facility] Orthopedics [id number] Univers 09:00:00 09:00:00 t; [place] [facility] Orthopedic Physi ci and Spine [facility] 2019-05-22 2019-05-24 Outpatient Greg [facility] [id number] 14:31:00 11:07:00 Victoriano 11 [place] 2019-05-22 2019-05-22 [facility] [id number] Univers 07:00:00 07:00:00 t; VICTORIANO GARZA ity of [place], M.D. [place] M.D. Physici ans 2019-05-21 2019-05-21 AppointSANDRINE Busch Orthopedics [id number] Univers 08:30:00 08:30:00 t; [place] [facility] PAC Orthopedic Physi ci and Spine [facility] 2019-05-09 2019-05-09 Outpatient MELISSA CRAWFORD KUSHAL FATIMA [id number] 10:02:08 23:59:00 JOSE ALFREDO lowe 2019-04-30 2019-04-30 Appointmen SANDRINE GARZA Orthopedics [id number] Univers 08:00:00 08:00:00 t; VICTORIANO GARZA, [facility] jelly BASURTO M.D. [facility] 2019-04-11 2019-04-11 Outpatient MELISSA CEE KUSHAL FATIMA [id number] 10:57:09 10:57:09 XOCHITL lowe 2019-04-02 2019-04-02 Appointmen SANDRINE GARZA Orthopedics [id number] Univers 08:00:00 08:00:00 t; VICTORIANO GARZA, [facility] 2019-03-10 2019-03-10 Outpatient MELISSA STEHPTODDKUSHAL MDA [id number] 12:58:23 20:57:18 XOCHITL lowe 2019-03-05 2019-03-05 Appointmen GREG [facility] Orthopedics [id number] Univers 08:30:00 08:30:00 t; VICTORIANO GARZA, [facility] Kings BASURTO [facility] 2019-02-19 2019-02-19 Appointmen SANDRINE HAMILTON Orthopedics [id number] Univers 08:30:00 08:30:00 t; ROCK HAMILTON [facility] JOSH WILKERSON [facility] PASelin [facility] 2019-02-10 2019-02-10 Outpatient MELISSA ADDISONETOKUSHAL MDA [id number] 13:16:00 23:59:00 MILKA lowe 2019-02-05 2019-02-05 Appointmen SANDRINE HAMILTON Orthopedics [id number] Univers 09:00:00 09:00:00 t; ROCK HAMILTON [facility] JOSH WILKERSON [facility] JOSH Orthopedic Physi ci and Spine [facility] 2018-12-31 2019-01-29 Outpatient Kuldeep [facility] [id number] 13:15:00 23:59:00 Rob 07 2019-01-29 2019-01-29 Appointmen SANDRINE GARZA Orthopedics [id number] Univers 08:00:00 08:00:00 t; VICTORIANO GARZA, Ellis Heredia M.D. [facility] [place] Physici ans 2019-01-22 2019-01-22 Appointmen ALFONSO SANDRINE [facility] [id number] Univers 09:00:00 09:00:00 t; ROCK HAMILTON, Orthopedics ity of JOSH WILKERSON [place] PAC Physici ans 2019-01-15 2019-01-15 Appointmen ALFONSO SANDRINE [facility] [id number] Univers 09:30:00 09:30:00 t; ROCK HAMIL[place], Orthopedics ity of JOSH WILKERSON [place] PA-C Physici ans 2019-01-08 2019-01-08 Appointmen MU-ISM, SANDRINE [facility] [id number] Univers 09:30:00 09:30:00 t; R[place] HAMIL[place], Orthopedics ity of JOSH WILKERSON [place] PAMelodie Physici ans 2019-01-03 2019-01-04 Outpatient Greg [facility] [id number] 10:59:00 10:19:00 Victoriano 10 [place] 2019-01-03 2019-01-03 Outpatient [facility] [id number] 10:59:00 10:59:00 Orthop e dic and Spine Hospita l 2019-01-02 2019-01-02 [facility] SANDRINE GARZA [facility] [id number] Univers 11:00:00 11:00:00 t; VICTORIANO GARZA ity of [place], M.D. [place] M.D. Physici ans 2019-01-01 2019-01-01 AppointSANDRINE Terrell Orthopedics [id number] Univers 08:00:00 08:00:00 t; VICTORIANO GARZA ity of [place], M.D. [place] M.D. Physici ans 2018-12-31 2018-12-31 AppointSANDRINE Atkinson [facility] [id number] Univers 13:30:00 13:30:00 t; ROB LIGHT M.D. ity of Ellis SELLERS M.D. Physici ans 2018-12-31 2018-12-31 Outpatient [facility] [id number] [facility] 13:15:00 13:15:00 2018 2018 Appointmen SANDRINE HAMILTON [facility] [id number] Univers 09:30:00 09:30:00 t; ROCK HAMILTON Orthopedics jety of JOSH WILKERSON PA-C Physici ans 2018-12-25 2018-12-25 Appointmen SANDRINE HAMILTON Orthopedics [id number] Univers 09:30:00 09:30:00 t; ROCK HAMILTON, at [facility] it y of JOSH WILKERSON PA-C Physici ans 2018-12-13 2018-12-23 Outpatient Greg [facility] [id number] 08:31:00 16:13:00 Victoriano 09 [place] 2018-12-12 2018-12-12 [facility] SANDRINE GARZA [facility] [id number] Univers 09:00:00 09:00:00 t; VICTORIANO GARZA, ity [place] M.D. Physici ans 2018-12-13 2018-12-12 Inpatient [facility] [id number] 08:31:00 06:45:00 Orthop e dic and Spine Hospita l 2018-12-04 2018-12-04 [facility] [id number] Univers 08:30:00 08:30:00 t; VICTORIANO GARZA, Ortho and i ty of Kings BASURTO Spine WLS [facility] Medical Physici [place] ans 2018-11-20 2018-11-20 Appointmen [facility] [id number] Univers 13:00:00 13:00:00 t; ROCK HAMILTON, it y of JOSH WILKERSON PA-C Physici ans 2018-11-20 2018-11-20 Appointmen SANDRINE HAMILTON [facility] [id number] Univers 13:00:00 13:00:00 t; [place] HAM[place] Orthopedics ity of JOSH WILKERSON PA-C Physici ans 2018-11-06 2018-11-06 Appointmen SANDRINE HAMILTON Orthopedics [id number] Univers 09:30:00 09:30:00 t; ROCK HAMILTON, at [facility] it y of JOSH WILKERSON [place] DAISY-C Physici ans 2018-10-24 2018-10-26 Outpatient VASQUEZ Garza [facility] [id number] 10:14:00 14:20:00 Victoriano 08 [place] 2018-10-24 2018-10-24 Appointmen SANDRINE GARZA [facility] [id number] Univers 09:00:00 09:00:00 t; VICTORIANO GARZA, jety of [place] BASURTO [place] Kings Physici ans 2018-09-23 2018-10-22 Outpatient Kuldeep [facility] [id number] 13:30:00 23:59:00 Rob 2018-09-25 2018-09-25 Appointmen SANDRINE GARZA [facility] [id number] Univers 08:30:00 08:30:00 t; VICTORIANO GARZA, Ortho and i ty of [place] BASURTO [facility]ine W[facility] Physici [place] ans 2018-09-23 2018-09-23 AppointSANDRINE Atkinson [facility] [id number] Univers 14:30:00 14:30:00 t; ROB LIGHT M.D. ity of Ellis SELLERS M.D. Physici ans 2018-09-13 2018-09-13 Outpatient REJI Light [facility] [id number] 12:27:00 23:59:00 Rob 04 2018-09-09 2018-09-09 Appointmen SANDRINE LIGHT [facility] [id number] Univers 09:30:00 09:30:00 t; ROB LIGHT M.D. ity of ROB [place] Physici ans 2018-07-31 2018-08-29 Outpatient Micheal [facility] [id number] 10:15:00 23:59:00 Tip Lyons 05 2018-07-31 2018-07-31 AppointSANDRINE Perez [facility] [id number] Univers 10:00:00 10:00:00 t; Tip Burton ity of [place], M.D. [facility] Physici ans 2018-06-25 2018-07-24 Outpatient Micheal [facility] [id number] 13:51:00 23:59:00 Tip Lyons 04 2018-06-28 2018-06-28 Jabier GARZA, [facility] [id number] Univers 09:30:00 09:30:00 t; VICTORIANO GARZA, José Miguel and i Jabari M.D. [facility] Physici Elizabeth ans 2018-06-25 2018-06-25 Jabier Villegas, SANDRINE [facility] [id number] Univers 14:00:00 14:00:00 t; Abdiel Sims M.D. [place], [facility] M.Ilda ans 2018-06-22 2018-06-22 Outpatient Bakari, [facility] [id number] 07:38:00 23:59:00 Bethany 03 Kandi 2018-05-14 2018-06-12 Outpatient Bakari [facility] [id number] 09:39:00 23:59:00 Bethany 03 Kandi 2018-05-14 2018-05-14 SANDRINE Alberts [facility] [id number] Univers 15:00:00 15:00:00 t; Abdiel Sims M.D. [place] Bethany [facility] M.Ilda ans 2018-05-10 2018-05-11 Outpatient MH95 MH95 [id number] 15:39:00 23:59:59 03 2018-05-10 2018-05-11 Outpatient MH95 MH95 [id number] 15:39:00 23:59:59 02 2018-05-10 2018-05-10 SANDRINE Melgoza Orthopedics [id number] Univers 11:00:00 11:00:00 t; VICTORIANO GARZA ity of [place], M.D. [facility] Physici ans 2018-03-12 2018-04-10 Outpatient Micheal, [facility] [id number] 09:52:00 23:59:00 Tip Lyons 02 2018-04-09 2018-04-09 Jabier Burton, [facility] [id number] Univers 14:30:00 14:30:00 t; Tip Burton ity of [place], M.D. [facility] Physici ans 2018-03-29 2018-03-29 Appointmen SANDRINE GARZA Orthopedics [id number] Univers 13:30:00 13:30:00 t; VICTORIANO GARZA ity of [place], M.D. [facility] Physici ans 2018-03-12 2018-03-12 Outpatient Kuledep, MHOIH OI [id number] 07:48:00 23:59:00 Rob 2018-03-12 2018-03-12 Appointleonel Burton, [facility] [id number] Univers 10:30:00 10:30:00 t; Tip Burton ity of [place], M.D. [facility] Physici ans 2018-02-28 2018-02-28 Outpatient Kuldeep, MHOIH OI [id number] 15:12:00 23:59:00 Rob 2018-01-29 2018-02-27 Outpatient Micheal [facility] [id number] 09:18:00 23:59:00 Tip Lyons 2018-02-19 2018-02-19 [facility] [id number] Univers 12:15:00 12:15:00 t; Tip Burton ity of [place], M.D. [place] Physici ans 2018-01-29 2018-01-29 Appointleonel Burton [facility] [id number] Univers 09:30:00 09:30:00 t; Tip Burton ity of [place], M.D. [facility] Physici ans 2018-01-23 2018-01-24 Outpatient MH95 MH95 [id number] 14:49:00 23:59:59 2017-12-28 2017-12-28 Appointmen SANDRINE HAMILTON Orthopedics [id number] Univers 10:00:00 10:00:00 t; ROCK HAMILTON at [facility] it y of JOSH WILKERSON [place] JOSH Physici ans 2017-11-21 2017-12-20 Outpatient Luis [facility] [id number] 13:55:00 23:59:00 Gavin 00 Mitch 2017-11-20 2017-12-19 Outpatient Micheal [facility] [id number] 14:01:00 23:59:00 Tip J 00 2017-12-17 2017-12-17 AppointSANDRINE Perez [facility] [id number] Univers 11:15:00 11:15:00 t; Tip Burton ity of [place], M.D. [place] M.D. Physici ans 2017-12-14 2017-12-14 Outpatient Bakari, [facility] [id number] 11:08:00 23:59:00 Bethany 00 Kandi 2017-11-20 2017-11-20 AppointSANDRINE Perez [facility]TP [id number] Univers 14:00:00 14:00:00 t; Tip Burton ity of [place], M.D. [place] M.D. Physici ans 2017-11-15 2017-11-16 Outpatient [place] [id number] 11:05:00 23:59:59 00 2017-11-13 2017-11-13 AppointSANDRINE Perez [facility]TP [id number] Univers 10:30:00 10:30:00 t; Tip Burton ity of [place], M.D. [place] M.D. Physici ans 2017-11-09 2017-11-09 AppointSANDRINE Busch Orthopedics [id number] Univers 10:00:00 10:00:00 t; ROCK HAMILTON, at [facility] it y of JOSH WILKERSON [place] JOSH Physici ans 2017-10-19 2017-10-27 Outpatient Pelon [facility] [id number] 15:27:00 20:29:00 Lars 54 2017-10-22 2017-10-22 Appointmen SANDRINE GARZA [facility]TP [id number] Univers 13:00:00 13:00:00 t; VICTORIANO GARZA ity of [place], M.D. [place] M.D. Physici ans Results Test Description Test Time Test Comments Results Result Comments Source IgG 2020-12-05 17:19:50 Test Item Value Reference Range Interpretation Comme nts IgG (test code = 6001) 1633 mg/dL 610-1616 H Lab Interpretation (test code = 24681-9) Abnormal MD ToFractionated [id number] 13:25:37 Test Item Value Reference Range Interpretation Comments Bili Total (test <0.3 See_Comment Direct and indirect code = 5096) bilirubin will not be reported when T otal bilirubin resul t is <0.3 mg/dLIndocyanin e Green (ICG) may cause false ly elevated bilirubin resul ts. Total and direct bilirubi n must not be measured from s amples containing indo cyanine green. False el evation of total bilirubin can be seen in patients wit h IgG concentrations above 28 g/L. [Automated mes ronel] The system which ge nerated this result transmit jossue reference range: <=1.2 mg /dL. The reference range was not used to interpret th is result as normal/abnormal . MD ToCalcium [id number] 13:25:36 Test Item Value Reference Range Interpretation Comments Calcium Lvl (test code = 5258) 10.0 mg/dL 8.4-10.2 MD ToGlomerular Filtration [id number] 13:25:35 Test Item Value Reference Range Interpretation Comments eGFR-AA (test code 90 See_Comment Normal eG FR: >= 60 = 8062) mL/min/1.73 m2N ote: The eGFR is calculated u sing the CKD-EPI equatio n. The eGFR declines with a ge. eGFR <60 mL/min/1.73 m2 is considered as "decreased". This equation should only be used for patients 18 and older. According to e National Kidney Foundati on's Kidney Disease Outcome Quality Initiative (KDO QI) classification and 2012 Kidney Disease Improving Global Outcomes (KDIGO) Clinical Practi ce Guideline, the stage of CK D should be categorized bas ed on estimated GFR. Stage Description GFR mL/min/1.73 m21 Normal or high GFR >=902 Mildly decrease d GFR 60-893a M ildly to moderately decr eased GFR 45-593b Moderat christo to severely decrea sed GFR 30-444 Severely decreased GFR 15-295 Kid duncan failure <15 [Automa jossue message] The system [employer] generated this result tra nsmitted reference range : >=60 mL/min/1.73 sq. m. The reference range was not used to interpret th is result as normal/abnormal . eGFR-HANNAH (test code 78 See_Comment Normal e GFR: >= 60 = 8063) mL/min/1.73 m2N ote: The eGFR is calculated u sing the CKD-EPI equatio n. The eGFR declines with a ge. eGFR <60 mL/min/1.73 m2 is considered as "decreased". This equation should only be used for patients 18 and older. According to th e National Kidney Found[employer]'s Kidney Disease Outcome Quality Initiative (KDO QI) classification and 2012 Kidney Disease Improving Global Outcomes (KDIGO) Clinical Practi ce Guideline, the stage of CK D should be categorized bas ed on estimated GFR. Stage Description GFR mL/min/1.73 m21 Normal or high GFR >=902 Mildly decrease d GFR 60-893a M ildly to moderately decr eased GFR 45-593b Moderat christo to severely decrea sed GFR 30-444 Severely decreased GFR 15-295 Kid duncan failure <15 [Automa jossue message] The system [employer] generated this result tra nsmitted reference range : >=60 mL/min/1.73 sq. m. The reference range was not used to interpret th is result as normal/abnormal . MD ToAlbumin [id number] 13:25:34 Test Item Value Reference Range Interpretation Comments Albumin Lvl (test code = 3.3 See_Comment L [A utomated message] 4454) The system [employer] generated this result transmitted ref erence range: 3.5 - 5. 2 gm/dL. The refe rence range was not u sed to interpret this result as normal/abnor mal. Lab Interpretation (test Abnormal code = 27516-7) MD ToTotal [id number] 13:25:33 Test Item Value Reference Range Interpretation Comments Total Protein (test code = 7649) 8.0 g/dL 6.4-8.3 MD ToAspartate [id number] 13:25:32 Test Item Value Reference Range Interpretation Comments AST (test code = 4731) 42 U/L See_Comment H [Aut omated message] The system [employer] generated this result transmitted ref erence range: <=40. Th e reference range was not used to int erpret this result as normal/abnormal . Lab Interpretation (test Abnormal code = 92805-9) MD ToAlkaline [id number] 13:25:31 Test Item Value Reference Range Interpretation Comments Alk Phos (test code = 4768) 183 U/L 40-129 H Lab Interpretation (test code = Abnormal 83147-7) MD ToElectrolyte [id number] 13:25:30 Test Item Value Reference Range Interpretation Comments Sodium Lvl (test code = 137 See_Comment [Au tomated message] The 7354) system which ge nerated this result tra nsmitted reference range : 136 - 145 mEq/L. The reference range was not u sed to interpret this result as normal/abnormal . Potassium Lvl (test 5.1 See_Comment [Automa jossue message] The code = 6854) system which ge nerated this result tra nsmitted reference range : 3.5 - 5.1 mEq/L. The reference range was not u sed to interpret this result as normal/abnormal . Chloride (test code = 101 See_Comment [Auto mated message] The 7111) system which ge nerated this result tra nsmitted reference range : 98 - 107 mEq/L. The refe rence range was not u sed to interpret this result as normal/abnormal . CO2 (test code = 5227) 28 See_Comment [Aut omated message] The system which ge nerated this result tra nsmitted reference range : 22 - 29 mEq/L. The refe rence range was not u sed to interpret this result as normal/abnormal . Anion Gap (test code = 8 See_Comment [Aut omated message] The 7979) system which ge nerated this result tra nsmitted reference range : 4 - 14 mEq/L. The refe rence range was not u sed to interpret this result as normal/abnormal . MD [id number] 13:25:29 Test Item Value Reference Range Interpretation Comments ALT (test code = 4705) 69 U/L See_Comment H [Aut omated message] The system [employer]le[employer] h generated this result transmitted ref erence range: <=41. Th e reference range was not used to int erpret this result as normal/abnormal . Lab Interpretation (test Abnormal code = 64288-9) MD ToGlucose [id number] 13:25:28 Test Item Value Reference Range Interpretation Comments Glucose Level (test code 163 mg/dL 70-99 H Eff ective 03/22/16, = 5699) the glucose reference inter vals have been updat ed based on [place] an Diabetes Associ ation guidelines (Standards of Medical Care in Diabetes 2016. Diabetes Care 2 016; 39: S13-S22).Fa sting blood glucose:Normal: 70 99 mg/dLImpaire d fasting glucose (increased risk for diabetes or pre-diabetes): 100 125 mg/dLDiabet es mellitus: >/=1 26 mg/dL Random bl ood glucose:Normal: 70 199 mg/dLNote: Random glucose >100 mg/dL is associ ated with increased risk for diabetes Lab Interpretation (test Abnormal code = 66725-9) MD To.Serum [id number] 13:25:27 Test Item Value Reference Range Interpretation Comments Creatinine (test code = 5399) 1.08 mg/dL 0.67-1.17 MD [id number] 13:25:26 Test Item Value Reference Range Interpretation Comments BUN (test code = 5055) 19 mg/dL 6-23 MD ToProthrombin Time with [id number] 13:22:36 Test Item Value Reference Range Interpretation Comments PT (test code = 6746) 14.1 See_Comment [Auto mated message] The system which generated this result transmitted reference range : 12.0 - 14.3 second(s). The reference range was not used to interpret this result as normal/abnormal . INR (test code = 1.16 0.90-1.10 H 5973) RANDI (test code = RANDI) This lab cannot be scheduled at the following locations due to collection/procc essing restrictions: [facility] and [facility]. Lab Interpretation Abnormal (test code = 54526-4) MD To[U] XRAY TIBIA FIBULA 2 VWS RIGHT [id number] 08:09:00 Test Item Value Reference Range Interpretation Comments XR TIBIA FIBULA 2 EXAM: XR TIBIA FIBULA 2 VWS RIGHT (test VWS RIGHT DATE: 11/17/2020 code = XR TIBIA 3:57 PM CDT INDICATION: FIBULA 2 VWS RIGHT) Metastatic renal cell carcinoma to bone COMPARISON: Right tibia radiographs 10/06/2020 TECHNIQUE: AP and lateral radiographs of the right tibia FINDINGS:Diffuse osteopenia noted.No fracture, periosteal reaction, or erosions identified.Partially visualized intramedullary nail in the distal right femur with 2 distal interlocking screws. Joint alignment is normal. 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 Small Achilles insertion calcaneal enthesophytes present. Extensive peripheral vascular calcifications noted. Diffuse nonspecific subcutaneous edema of the leg noted. IMPRESSION:No fractures or focal bone lesions identified. Diffuse osteopenia. 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 Calcaneal enthesopathy. ----- Page Break ----- Nonspecific subcutaneous edema of the leg. Peripheral vascular calcifications. 11/17/2020 5:41 PM CDT Ervin Landry [facility] [id number] 14:24:50 Test Item Value Reference Range Interpretation Comments CRP (test code = 58.24 mg/L Reference r portia for HS 5235) CRP assay are a s follows: Reference range s when used to assess cardi ac risk: <1.00 mg/L Low cardiovascular risk 1.00-3.00 mg/L Average cardiovascular risk >3.00 mg/L High cardi ovascular risk.Reference ranges when used to assess inflammatory re sponses: Less than or eq ual to 10.00 mg/L. MD ToProtein/Creatinine Ratio [id number] 14:04:39 Test Item Value Reference Range Interpretation Comments UTP Ran (test code = 117 mg/dL Normal range not 7922) available for collections les s than 24 hours i n duration. U Creatinine (test code 161.9 mg/dL 40-278 The reference range = 7725) listed is for f irst morning urine collection. U Prot/Creat (test code 0.72 g/g See_Comment H [Au tomated = 2515) message] The sy stem which generated this result transmitted reference range : <=0.14. The reference range was not used to interpret this result as normal/abnormal . Lab Interpretation Abnormal (test code = 82592-1) MD [id number] 14:01:49 Test Item Value Reference Range Interpretation Comments TSH (test code = 7578) 4.80 See_Comment H Note: New Methodology and Reference Range change effectiv e 12/13/2017 at 14 00 Testing Perform ed at [facility], [address], [address], [place] [address] [Automat ed message] The sy stem which generated this result transmit jossue reference range : 0.27 - 4.20 mcunit/m L. The reference range was not used to int erpret this result as normal/abnormal . Lab Interpretation (test Abnormal code = 23649-1) MD Buchanan [id number] 14:01:48 Test Item Value Reference Range Interpretation Comments T4 Free (test code 1.35 ng/dL 0.93-1.7 Testing P erformed at [facility] = 750) Lab [employer] [facility], [address], [address], [place] [address] MD ToUrinalysis with [id number] 13:55:30 Test Item Value Reference Interpretation Comments Range UA WBC (test code = 3 See_Comment H [Automa jossue 7904) message] The system which generated this result transmitted reference range : 0 - 2 /HPF. The reference range was not used to interpret this result as normal/abnormal . UA RBC (test code = 2 See_Comment [Automa jossue 7891) message] The system which generated this result transmitted reference range : 0 - 2 /HPF. The reference range was not used to interpret this result as normal/abnormal . UA Mucous (test code NOT SEEN TRACE /HPF = 7887) UA Bacteria (test NOT SEEN NOT SEEN /HPF code = 7870) UA Squam Epi (test OCC OCC /HPF code = 7896) RANDI (test code = Some reporting RANDI) parameters within the Urinalysis test have changed due to the implementation of new instrumentation in the [facility], allowing greater sensitivity of measurement. Urinalysis results reported by the [facility] using existing instrumentation, as well as Urinalysis testing performed manually or by backup methodology at the [facility] will remain relatively unchanged. New reporting parameters and units will now be reported for all campuses. Lab Interpretation Abnormal (test code = 12170-2) MD ToPhosphorus [id number] 13:47:10 Test Item Value Reference Range Interpretation Comments Phosphorus (test code 3.4 mg/dL 2.5-4.5 Testin g Performed at = 6817) [facility] [address], [address], [place] [address] MD ToMagnesium [id number] 13:47:09 Test Item Value Reference Range Interpretation Comments Magnesium (test code = 1.8 mg/dL 1.6-2.6 Testi ng Performed at 6359) [facility], [address], [address], [place] [address] MD ToAyteixhzZNL2829-00-00 13:47:08 Test Item Value Reference Range Interpretation Comments LDH (test code = 6111) 277 U/L 135-225 H Resul ts greater than 1651 U/L may no t be reliable due to matrix effect w ith extended diluti on as it exceeds the operations director s recommended l imit. Caution should be exercised when interpreting buck ch values and done in conjunction wit clinical contex t. Testing Perform ed at [facility] Lab [facility], [address], [address], [place] [address] Lab Interpretation (test Abnormal code = 21772-9) MD Metcalf [id number] 13:44:43 Test Item Value Reference Range Interpretation Comments Sed Rate (test code = 74 See_Comment H [Auto mated message] 6817-7) The system Pet[employer] generated this result transmitted ref erence range: 0 - 9 mm /hr. The reference r sheng was not used to interpret this result as normal/abnor mal. Lab Interpretation (test Abnormal code = 50669-5) MD ToUrinalysis w/Microscopic if [id number] 13:31:26 Test Item Value Reference Range Interpretation Comments UA Color (test code = 7877) Yellow Yellow UA Appear (test code = 7868) Clear Clear UA Glucose (test code = 7881) NEG NEG mg/dL UA Bili (test code = 7871) NEG NEG UA Ketones (test code = 7884) Trace NEG mg/dL A UA Spec Grav (test code = 7894) 1.027 1.002-1.035 UA Blood (test code = 7872) NEG NEG UA pH (test code = 7909) 5.0 4.5-8.0 UA Protein (test code = 7890) 100 mg/dL NEG A UA Urobilinogen (test code = 7903) NEG NEG UA Nitrite (test code = 7888) NEG NEG UA Leuk Est (test code = 7886) NEG NEG Lab Interpretation (test code = Abnormal 53950-2) MD [id number] 13:18:52 Test Item Value Reference Range Interpretation Comments Neutrophil % (test code 68.2 % 42-66 H As p art of = 6491) Differential performed at [facility] Lab [employer] Products Sales Representative [facility], [address], [place] [address] Lymphocyte % (test code 16.1 % 24-44 L = 6194) Monocyte % (test code = 9.0 % 2-7 H 6422) Eosinophil % (test code 5.7 % 1-4 H = 5520) Basophil % (test code = 0.8 % 0-1 5068) IGRE % (test code = 0.2 % 0-0.4 IGRE % c ount includes 5958) Metamyelocytes, Myelocytes, and Promyelocytes. As part of Differe ntial performed at [facility] Lab [employer] Sales Representative [facility], [address], [place] [address] Neutrophil Abs (test 4.07 K/uL 1.7-7.3 code = 6492) Lymphocyte Abs (test 0.96 K/uL 1-4.8 L code = 6195) Monocyte Abs (test code 0.54 K/uL 0.08-0.7 = 6423) Eosinophil Abs (test 0.34 K/uL 0.04-0.4 code = 5521) Basophil Abs (test code 0.05 K/uL 0-0.1 = 5069) IG Abs (test code = 0.01 K/uL 0-0.04 5954) Lab Interpretation Abnormal (test code = 24571-3) MD To.[id number] 13:18:49 Test Item Value Reference Range Interpretation Comments WBC (test code = 8034) 6.0 K/uL 4-11 RBC (test code = 6932) 3.95 See_Comment L [Aut omated message] The system Petenko generated this result transmitted ref erence range: 4.50 - 6 .00 M/uL. The refer ence range was not u sed to interpret this result as normal/abnor mal. Hgb (test code = 5898) 11.5 See_Comment L As pa rt of CBC or as an individual orderable testi ng performed at [facility] Food Products Sales Representative Bldg, [address], [address], [place] [address] [Automate d message] The sy stem which generated this result transmit jossue reference range : 14.0 - 18.0 gm/dL. T he reference range was not used to int erpret this result as normal/abnormal . Hct (test code = 5860) 36.8 % 40-54 L As pa rt of CBC or as an individual orderable testi ng performed at [facility] Food Products Sales Representative [facility], [address], [place] [address] MCV (test code = 6222) 93 fL 82-98 MCH (test code = 6220) 29.1 pg 27-31 MCHC (test code = 6221) 31.3 See_Comment [Au tomated message] The system Petenko generated this result transmitted ref erence range: 31.0 - 3 6.0 gm/dL. The refe rence range was not u sed to interpret this result as normal/abnor mal. RDW-SD (test code = 61.2 fL 35.1-46.3 H 6972) RDW-CV (test code = 17.9 % 12-15.5 H 6971) Platelet count (test 364 K/uL 140-440 As part of CBC or as code = 6832) an individual orderable testi ng performed at [facility] Food Products Sales Representative [facility], [address], [place] [address] MPV (test code = 6282) 10.5 fL 4-10.4 H INRBC (test code = 0.0 % See_Comment The INRBC (instrument 5974) NRBC) value ref lects the enumeration of nucleated red b lood cells contained in a 200uL sampleof whole blood analyzed by the instrument. Thi s value maydiffer from the NRBC value repo rted in a manual differential,wh ich is based on a 100 cell differential. A s part of CBC testing performed at [facility] Food Products Sales Representative [address], [place] [address] [Automated mess age] The system Petenko generated this result transmitted ref erence range: <=0.0. T he reference range was not used to int erpret this result as normal/abnormal . Lab Interpretation Abnormal (test code = 60829-7) MD ToMR Femur w/wo contrast [id number] 12:30:00PROCEDURE INFORMATION:Exam: MR Right Lower Extremity Without and With Contrast, Femur.Exam date and time: 11/02/2020 12:34 PMAge: 54 years oldClinical indication: Secondary malignant neoplasm of bone; Additional info:/c79.51 secondary malignant neoplasm of boneTECHNIQUE:Imaging protocol: MR of the Rightlower extremity without and with contrast.Exam focused on the femur.Contrast material: DOTAREM; Contrast volume: 24 ml; Contrast route: INTRAVENOUS(IV); COMPARISON:FEMUR W/WO CONTRAST MRI, RIGHT 10/20/2017 4:22 AMFINDINGS:Bones/joints: Patient is status post internal fixation of a comminutedpathologic fracture of the proximal right femoral diaphysis with anintramedullary nail and cement material. The hardware and fracture healing isbetter demonstrated on recent CT secondary to extensive metallic artifact. Assessment of the marrow signal of the femur is limited secondary to theartifact. Areas of abnormal signal are suspected within the posterior cortexbelow the level of the fracture series 801, image 131. There is someintramedullary T1 hypointensity, T2 hyperintensity within the distal femuralongthe clarita 1st and see series 401, image 27.Soft tissues: Large soft tissue defect identified along thelateral right thighat the level of the pathologic fracture. The defect is a large wedge-shapeddefectinvolving all of the subcutaneous tissues and extending to themusculature. There is some surroundingmild edema. The wound measuresapproximately 4.5 cm AP by approximately 12 cm in length. There is mild nonmasslike enhancement within the subcutaneous tissues anterior to the wound.There is also mild non masslike enhancement along the deep aspect of the wound.Internal areas of non masslike enhancement are also noted within the vastusintermedius muscle and distally the vastus lateralis muscle. There is mildatrophy of the hamstring musculature.IMPRESSION:1. Postoperative changes from internal fixationof pathologic fracture of theright femur. Hardware and bone is better assessed on recent CT. 2. Presence of residual metastatic disease within the right femur is difficultto assess secondary to hardware artifact. Suspicion for areas of abnormalmarrow signal below the fracture. This could be further assessed withfollow-up bone scan.3. Large soft tissue wound/defect along the lateral right thigh. There isexpected areas of surrounding subcutaneous edema and non masslike enhancementlikely scar tissue.There is also some non masslike enhancement within themusculature which may be post treatment related. As there is no previous posttreatment MRI for direct comparison, this examination should can as thepatient's baseline for for follow-up imaging to assess for disease. 4. Atrophy of the hamstring musculature.Panchito Biswas MD On 11/05/2020 08:46:08; [id number]--Shxm by: Yajaira Biswas MDDictated Date/time: 11/05/20 08:46Electronically Signed by: Panchito Biswas 11/06/2107:46FINAL REPORTUnSpanish Fork Hospital Knee w/wo contrast [id number] 11:15:00PROCEDURE INFORMATION:Exam: MR Right Lower Extremity Joint Without and With Contrast, KneeExam date and time: 11/02/2020 11:31 AMAge: 54 years oldClinical indication: Secondary malignant neoplasm of bone; Additional info:/[email or web address] secondary malignant neoplasm of boneTECHNIQUE:Imaging protocol: MR of the Right lower extremity joint without and withcontrast. Exam focused on the knee.Contrast material: DOTAREM; Contrast volume: 24 ml; Contrast route: INTRAVENOUS(IV); COMPARISON:CR KNEE 1-2 VIEWS UNILATERALDX, RIGHT 10/19/2017 10:17 PMFINDINGS:Bones and cartilage: Postsurgical changes present femur relating to priorintramedullary nail fixation having associated susceptibility artifact, whichlimits evaluation of hardware and surrounding structures. A focal lesiondemonstrating dark T1 signal and increased PD signal is present in the distalfemur metaphysis measuring 1.4 x 0.9 x 1.0 cm (series 593387, image15). Thisdemonstrates questionable mild enhancement on postcontrast images. No otherdefinite suspicious lesions identified. No evidence of fracture. No focalchondral defect appreciated.Joint spaces: Trace joint effusion is present.Medial meniscus: Degeneration in the medial meniscus without definite tear.Lateral meniscus: Degeneration in the lateral meniscus without definite tear.Anterior cruciate ligament: Intact. No evidence of tear.Posterior cruciate ligament: Intact. No evidence of tear.Medial capsule and supporting structures: Unremarkable. No tear.Lateral capsule and supporting structures: Unr emarkable. No tear.Extensor mechanism of knee: The quadraceps tendon and patella tendon areintact. The medial and lateral patellofemoral ligaments are intact.Muscles: Unremarkable.Soft tissues: Moderate diffuse subcutaneous edema is present. No focal rimenhancing fluid collection identified. No soft tissue mass identified.IMPRESSION:1. Postsurgical changes in the distal femur with associated limitinghardwareartifact.2. Focal lesion in the distal femur metaphysis with questionable associatedenhancement is suspicious for metastatic lesion.3. Medial and lateral menisci degeneration without definite tear.4. Trace joint effusion. New line moderate diffuse subcutaneous edema.Yoni Sagastume MD On 11/05/2020 09:12:13; [id number]--Aseu by: Yoni Sagastume MDDictated Date/time: 11/05/20 09:12Electronically Signed by: Yoni Sagastume MD 11/05/2108:12FINAL REPORTUnSpanish Fork Hospital Tib Fib w/wo contrast [id number] 09:45:00PROCEDURE INFORMATION:Exam: MR Right Lower Extremity Without and With Contrast, Tibia FibulaExam date and time: 11/02/2020 10:23 AMAge: 54 years oldClinical indication: Secondary malignant neoplasm of bone; Additional info:/[email or web address] secondary malignant neoplasm of boneTECHNIQUE:Imaging protocol: MR of theRight lower extremity without and with contrast.Exam focused on the tibia and fibula.Contrast material: DOTAREM; Contrast volume: 24 ml; Contrast route: INTRAVENOUS(IV); COMPARISON:FEMUR W/WO CONTRAST MRI, RIGHT 10/20/2017 4:22 AMFINDINGS:Bones/joints: There is a T1 hypointense, T2 hyperintense lesion in the distaltibial diaphysis measuring 7.2 cm in length. No pathologic fracture. Possibleadditional area of T1 hypointensity, T2 hyperintensity along the medial cortexof the proximal tibial metadiaphysis measuring 9 mm series 21, image 24. Theremaining marrow signal is within normal limits.Soft tissues: The musculature appears somewhat atrophic. Otherwise softtissues appear unremarkable. No soft tissue masses. No focal fluidcollections.IMPRESSION:1. Intramedullary lesion in the distal tibial diaph ysis suggestive ofmetastatic disease. Possible additional tiny lesion in the proximal tibialmetadiaphysis. No pathologic fractures.2. Nonspecific subcutaneous edema about the calf. Diffuse muscle atrophy.Panchito Biswas MD On 11/05/2020 08:56:52; -[id number]--Rada by: Panchito Biswas MDDictated Date/time: 11/05/20 08:57Electronically Signed by: Panchito Biswas 11/06/2107:57FINAL REPORTUnMountain [facility] PhysiciansOOD BANK [id number] 18:04:00Negative (10/19/20 12:04 PM) [facility] [id number] 18:04:42998Gsdocdip HermannCHEM PANEL 2020-10-19 18:04:0021[facility]annCHEM ZIAZF8989-01-37 18:04:001.24[facility]annCHEM [id number] 18:04:83698Oxxbxmga HermannCHEM [id number] 18:04:004.9[facility]annCHEM [id number] 18:04:37204Qbkjzthk HermannCHEM VGJCY1454-58-23 18:04:0028[facility]annCHEM VEVFB4799-00-30 18:04:008.1 [facility]CHE[facility] [id number] 18:04:007.2[facility]annCHEM PANEL 2020-10-19 18:04:001.9[facility]annCHEM HJLZJ5518-66-81 18:04:0076[facility]annCHEM YEBJX7485-35-65 18:04:0041[facility]annCHEM LQUOA7433-16-61 18:04:33395Efvmixbr HermannCHEM EMHMO2045-49-11 18:04:000.2[facility]annCHEM [id number] 18:04:0014.9[facility]annCHEM TGOKY7490-74-00 18:04:00 Test Item Value Reference Range Interpretation Comments B/C Ratio (test code = B/C Ratio) 17 1 6-25 [facility]CHE[facility] [id number] 18:04:005.3[facility]annCHEM PANEL 2020-10-19 18:04:00 Test Item Value Reference Range Interpretation Comments A/G Ratio (test code = A/G Ratio) 0.4 1 0.7-1.6 [facility]CHE[facility] [id number] 18:04:0066[facility]annHEMATOLOGY 2020-10-19 18:04:006.7[facility] IhjthjqIFSGAYCSVL4186-33-24 18:04:003.20[facility] YbvgybuDGGJWPOQTF6202-88-30 18:04:009.6[facility] VxwpwhbDTGEGSNMYP4086-86-20 18:04:0029.7[facility] JamvwbpOXKIGMODWO9266-54-37 18:04:0092.8[facility] Alexi EEDRGTNDRT8313-00-87 18:04:00 Test Item Value Reference Range Interpretation Comments MCH (test code = MCH) 30.1 pg 27.0-31.0 [facility] DcxveqkURJSWLQAPR1164-57-09 18:04:0032.4[facility]annHEMATOLOGY 2020-10-19 18:04:0019.1[facility] YskpxejKZUEPYAZKJ1366-96-25 18:04:00269Lyzbjkhe TlrdjquKPJXXZWHDG9992-50-66 18:04:008.6[facility] RbootqoQJBOSYZSJH2657-15-20 18:04:0071.3[facility] FvkppksADSRWBGILK4883-90-72 18:04:0012.8[facility] Alexi FSDQTKSQRI7435-86-01 18:04:0012.8[facility] DgqxmcnGYJLFLGHVG5660-51-55 18:04:00 2.3[facility] KchiwqhUJLGBSZHJM2847-52-96 18:04:000.8[facility] HermannHEMATOLOGY 2020-10-19 18:04:004.8[facility] QvwdexyTLAKIHLOTX7689-56-42 18:04:000.9[facility] CiaffsuRAKDJZWYCT9259-23-70 18:04:000.9[facility] JqgxrybQZNCHOJIJE3739-29-99 18:04:000.2[facility] QukalmuIGGEQUEWNT0550-00-67 18:04:000.1[facility] ANFYIHCJYC4326-86-66 18:04:0089.7[facility] QigvophRWJHTJCGII4013-06-76 15:44:00 Not Detected (10/19/20 9:44 AM)[facility][U] XRAY FEMUR 2 VWS RIGHT [id number] 2020-10-06 10:59:00 Test Item Value Reference Range Interpretation Comments XR FEMUR 2 VWS EXAM: XR TIBIA FIBULA 2 RIGHT (test code = VWS RIGHT, XR FEMUR 2 VWS XR FEMUR 2 VWS RIGHT DATE: 10/06/2020 1:06 RIGHT) 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 TECHNIQUE: AP and lateral radiographs of the right femur and tibia FINDINGS: Unchanged, satisfactory alignment of proximal femur pathologic fracture stabilized with cephalomegaly nail. No hardware complication. No progressive bony remodeling with partial bridging bone formation at the fracture site. No focal lesions of the right tibia or fibula. Generalized diminished bone mineral density. Diffuse soft tissue swelling. Extensive arterial calcification. IMPRESSION: 1. No focal bone lesions of the right tibia-fibula.2. Unchanged, satisfactory appearance of internally fixated proximal femur diaphyseal pathologic fracture. 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 TECHNIQUE: AP and lateral radiographs of the right femur and tibia FINDINGS: Unchanged, satisfactory alignment of proximal femur pathologic fracture stabilized with cephalomegaly nail. No hardware complication. No progressive bony remodeling with partial bridging bone formation at the fracture site. No focal lesions of the right tibia or fibula. Generalized diminished bone mineral density. Diffuse soft tissue swelling. Extensive arterial calcification. IMPRESSION: 1. No focal bone lesions of the right tibia-fibula.2. Unchanged, satisfactory appearance of internally fixated proximal femur diaphyseal pathologic fracture. 10/06/2020 4:10 PM SALOONKEEPER Keny Melo [facility] Chest Abdomen Pelvis with Ugzfiyjb4199-78-75 14:39:541. Left lower lobe pulmonary nodule is smaller. Other pulmonary nodules are stable.22. Left hilar metastatic node is stable.3. Stable right adrenal metastasis.4. A few lymph nodes in the upper abdomen are smaller.5. Increase in size of lytic metastasis in the left iliac bone. Based on the bone scan mehreen luation of the same day there is reportedly interval improvement. Please see report of same day bonescan evaluation.6. Postsurgical changes in the right femur. There appears to be increase in the skindefect. To correlate with physical examination and may consider dedicated imaging. Please see findin gs.Interface, Radiology Results In - 09/30/2020 8:42 AM CSTFULL RESULT:Examination: CT CHEST ABDOMEN PELVIS W CONTRAST, 09/29/2020 4:31 PMClinical History: Malignant neoplasm of left kidney, except renal pelvisIndication: Renal cell carcinomaComparison: June 25, 2020Technique: CT of the chest, abdomen, and pelvis was performed with intravenous contrast.Findings: There is a metastatic left hilar node. This is similar to the prior evaluation. This measures up to 3.0 x 2.6 cm. This can be seen on series 3 image 41. The left lower lobe pulmonary nodule measures 0.7 x 0.7 cm. This can be seen on series 9 image 111. On the prior study this measures 1.2 x 0.8 cm. There are additional stable less than 3mm pulmonary nodules. This can be seen on series 3 image 20, 23, 37, 49, 56, 57, 60, 66, 71 and 82.There is a 3.8 x 2.4 cm metastatic nodule in the right adrenal gland. On the prior study this measured2.8 x 2.5 cm. There are low-attenuation too small to characterize liver lesions. This can be seen on image 186-190. These are probably related to liver cysts. The spleen measures 12 cm. There is no hydronephrosis. There is a too small to characterize low- attenuation lesion in the right kidney. It is stable. There are post left nephrectomy changes. There is no pancreatic masses or gallbladder is underd istended.There are enlarged nodes in the abdomen. There is a 2.2 x 1.6 cm left gastric node. This can be seen on image 110. This is stable. Contrast there is a 6 mm left gastric node on image 104. Thisis smaller. On the prior study this measured 1.1 cm. Additional examples of lymph nodes in the upperabdomen can be seen in the grossly stable right gastroepiploic nodes. This can be seen seen for example on series 3 image 119-123. There are small stable retroperitoneal nodes.In the pelvis, there is no rectal contrast. The prostate measures 5.5 x 3.8 cm. The bladder is underdistended. There are bilateral obturator nodes. This can be seen on image 290. These are similar to prior evaluation. There arealso bilateral external iliac nodes. Some demonstrates a fatty hilum. There is no bowel obstruction.There is a 1.3 cm left inguinal nodes. On the prior study this measured 9 mm.There is orthopedic hardware in the right femur. There is partially visualized soft tissue thickening in the right lower extremity. When compared to the prior examinations, there appears to be increase in the skin defect. This is partially visualized. As clinically indicated may consider dedicated imaging.There is a lytic lesion in the left iliac bone. Seen on series 3 image 252. This is larger. There is a probable corticaldisruption. There are multiple osteophytes in the spine. There is subcutaneous edema. There is soft t issue thickening in the subcutaneous fat in the right anterior hemiabdomen. May related to subcutaneous injections.IMPRESSION:1. Left lower lobe pulmonary nodule is smaller. Other pulmonary nodules arestable.22. Left hilar metastatic node is stable.3. Stable right adrenal metastasis.4. A few lymph nodes in the upper abdomen are smaller.5. Increase in size of lytic metastasis in the left iliac bone. Based on the bone scan evaluation of the same day there is reportedly interval improvement. Please see report of same day bone scan evaluation.6. Postsurgical changes in the right femur. There appears to be increase in the skin defect. To correlate with physical examination and may consider dedicated imaging. Please see findings.MD ToAZ Bone Scan Whole Gezk6458-03-35 20:57:251. Improved left iliac bone lesion with no new foci of uptake since 06/25/2020.2. Chronic inflammatory changes along the right lower extremity and distal left lower extremity. Interface, Radiology Results In - 09/29/2020 2:59 PM CSTFULL RESULT:Examination: Whole-Body Bone Scan, 09/29/2020 2:30 PMClinical History: 54-year-old male with renal cell carcinoma.Indication: Restaging for bone metastasis.Comparison: Bone scan and CT CAP 06/25/2021.Technique: Following the intravenous administration of 22mCi of technetium-99m MDP, anterior and posterior delayed whole body planar images were acquired. Static views of the head and arms were also obtained.Findings: Interval improvement in the left posterior iliac bone lesion.Heterogeneous appearance of radiotracer uptake along the right lower extremity consistent with chronic changes due to orthopedic hardware placement, radiation, and surgical site infection. Somewhat more prominent activity is not appreciated in the distal bilateral tibiae and mid feet.Status post left nephrectomy. There is physiologic activity in the right kidney and bladder.IMPRESSION:1. Improved left iliac bone lesion with no new foci of uptake since 06/25/2020.2. Chronic inflammatory changes along the right lower extremity and distal left lower extremity.MD ToX-ray Foot 3+ Views Jyns1356-75-80 19:31:05Forefoot and great toe soft tissue swelling without evidence of osteomyelitis or pyogenic arthritis.Interface, Radiology Results In - 09/29/2020 1:33 PM CSTFULL RESULT:Examination: XR FOOT 3+ VW LEFT,09/29/2020 1:21 PM.Clinical History: 54-year-old man with metastatic renal cell carcinoma and non-pressure chronic ulcer of other part of left foot with fat layer exposedIndication: Ulcer left great toeComparison: Right foot February 28, 2019Technique: XR FOOT 3+ VW LEFTFindings: 1. Forefoot and great toe soft tissue swelling.2. Diffuse arterial wall calcification consistent with diabetes mellitus.3. No evidence of osteomyelitis or pyogenic arthritis. IMPRESSION:Forefoot and great toe soft tissue swelling without evidence of osteomyelitis or pyogenic arthritis.MD ToGlucose, Puyivz5791-01-35 19:20:40 Test Item Value Reference Range Interpretation Comments Glucose Random (test 122 mg/dL 70-199 Effecti ve 03/22/16, the code = 9360) glucose referen ce intervals have been updated based o n [place] [employer] giancarlo delines (Standards of M edical Care in Diabete s 2016. Diabetes Care 2 016; 39: S13-S22)Fasting blood glucose:Normal: 70 99 mg/dLImpair ed fasting glucose (increased risk for diabetes or pre-diabetes): 100 125 mg/dLDiabe kelly mellitus: >/= 1 26 mg/dLRandom blo od glucose:Normal: 70 199 mg/dLNote: Random glucose >100 mg /dL is associated with increased risk for diabetes Testin g Performed at [facility], [address], [address], [place] [address] MD ToUric Pwhx8917-59-00 19:20:38 Test Item Value Reference Range Interpretation Comments Uric Acid (test code = 7.5 mg/dL 3.4-7 H Testi ng Performed at 7955) [facility], [address], [place] [address] Lab Interpretation (test Abnormal code = 10245-4) MD ToNkbnaqkyVGJRBECMND3780-41-53 11:30:005.0[facility] ZnpcrfyFWMZWMGDVS6209-88-49 11:30:003.13[facility] IrvktvnDTWOCMAZCB6500-74-72 11:30:009.4[facility] FKBHTUUOIB6225-02-71 11:30:0028.5[facility] FtycfasEZJYJOHBLP1659-28-74 11:30:00 91.3[facility] GgzuksyOXWIYDLMDM0640-86-83 11:30:00 Test Item Value Reference Range Interpretation Comments MCH (test code = MCH) 30.0 pg 27.0-31.0 [facility] HhhkadfXASVBGRHCI1301-01-57 11:30:0032.9[facility]annHEMATOLOGY 2020-09-15 11:30:0020.3[facility] EchpekqKMNHCEKJRW1924-42-86 11:30:95694Jwlyqffz GnezjbxRYNYEQIGLR5984-42-45 11:30:008.2[facility] TqqtmtaVEJPAIWIEP5934-89-33 11:30:0067.3[facility] UcskiclMZEYMWXSKX9376-98-03 11:30:0014.5[facility] QZGQAPTFEH9545-95-44 11:30:0012.5[facility] XzghdawBROCWQPWQF9722-30-09 11:30:00 5.1[facility] HugmwzyLVXKHIEGCU0713-68-74 11:30:000.6[facility]annHEMATOLOGY 2020-09-15 11:30:003.4[facility] LmzqfdoKTLJJXDUVE7306-17-61 11:30:000.7[facility] ZwxtqbjUFJCSOOKBS2475-35-72 11:30:000.6[facility] LyqhjdcMDJKUBGRPV5738-17-91 11:30:000.3[facility] ObhmhjzKNZXBUAJVE9409-10-64 11:30:0039.3[facility] TRIMETHOPRIM+SULFAMETHOXAZOLE:SUSC:PT:ISOLATE:ORDQN:NTD4697-24-03 18:58:00 Alcaligenes faecalisMemorial HermannBLOOD BANK DKWWYNP6307-49-52 12:40:00 Negative (09/14/20 6:40 AM)[facility]annCHEM XDNRK9187-94-77 12:40:16768 [facility]ann[facility] QXMXE0785-53-66 12:40:0016[facility]annCHEM PANEL 2020-09-14 12:40:001.13[facility]annCHEM TIARJ8935-84-16 12:40:37680Ejoribvx HermannCHEM LPKZS8321-16-34 12:40:004.4[facility]annCHEM HQPZQ6984-78-92 12:40:41425Drmtbozr HermannCHEM HTXHA6382-81-27 12:40:0021[facility]annCHEM UXNEX1455-70-48 12:40:008.0[facility]annCHEM QTDUZ6334-52-22 12:40:0014.4 [facility]annCHEM EUNCY9449-98-28 12:40:0074[facility]annCHEM PANEL 2020-09-14 12:40:007.2[facility]annCHEM CAROF7901-11-08 12:40:002.3[facility]annCHEM QWWSM9858-57-89 12:40:004.9[facility]annCHEM EKPLL7271-67-89 12:40:00 Test Item Value Reference Range Interpretation Comments A/G Ratio (test code = A/G Ratio) 0.5 1 0.7-1.6 [facility]annCHE[facility] GTITY6436-27-31 12:40:56089Aaamfkzq HermannCHEM PANEL 2020-09-14 12:40:0058[facility]annCHEM AJPLP5792-00-87 12:40:79731Laepzdai HermannCHEM IJJXD2883-81-96 12:40:000.2[facility]annCHEM XUDMW7258-55-62 12:40:00<0.1[facility] LhpdiysANULMRNFYJ2178-28-62 12:40:0071.2[facility] TKEQIMUZCP4967-79-55 12:40:0012.7[facility] VdksqclZBJHRFYNOV0337-50-10 12:40:00 11.0[facility] OexfehnBNRMTVASGI5878-39-71 12:40:004.5[facility]annHEMATOLOGY 2020-09-14 12:40:000.6[facility] CauwzmhRLHPDNNISE9313-70-61 12:40:003.2[facility] YdvlhjmCYPCLUBGQV7427-57-44 12:40:000.6[facility] DvuhtvgNRFVHUWWKG3334-23-95 12:40:000.5[facility] HowsphcZHZSHBAOTU1504-29-33 12:40:000.2[facility] CLENNCZJIO0303-63-22 12:40:000.0[facility] HqltscjKYYGWVKPLG2141-27-95 12:40:004.5 [facility] EzxxkhhNFEGXUCAUW3963-31-44 12:40:003.70[facility]annHEMATOLOGY 2020-09-14 12:40:0011.0[facility] ZlgsdorYNVJUQWROP0000-51-53 12:40:0033.4[facility] AgxjaurVWVUEKLQMA2520-26-08 12:40:0090.1[facility] HjlkmojSLCXDGDAJI9444-91-35 12:40:00 Test Item Value Reference Range Interpretation Comments MCH (test code = MCH) 29.7 pg 27.0-31.0 [facility] IclgqlvPBAGIJQLXS1128-08-85 12:40:0032.9[facility]annHEMATOLOGY 2020-09-14 12:40:0020.5[facility] TkszjuuMGTUNVIXGP3221-89-47 12:40:52572Bpqwkbxs CekecgvIWUYHSMDJE5144-67-29 12:40:008.0[facility] SduihvpPFRKHXPCQF0107-44-72 15:09:0017.0[facility]annCHEM GXVOV0751-82-72 12:43:006.7[facility]annCHEM OYHYB3597-81-90 12:43:002.2[facility]annCHEM MOYGV2273-06-20 12:43:31175 [facility]annCHE[facility] PEYLO1580-65-28 12:43:0051[facility]annCHEM PANEL 2020-09-12 12:43:84535Wsjkgkqm HermannCHEM TKAJP0144-50-16 12:43:000.2[facility]annCHEM WZKQQ6754-89-87 12:43:000.1[facility]annCHEM NVYXU9719-14-13 12:43:000.1[facility]annCHE[facility] XYWFD2488-98-37 12:43:004.5[facility]annCHEM QTIDC3319-87-86 12:43:00 Test Item Value Reference Range Interpretation Comments A/G Ratio (test code = A/G Ratio) 0.5 1 0.7-1.6 [facility] AnciccwRSKVADRBNI8740-41-19 12:43:00 Test Item Value Reference Range Interpretation Comments Hep Signal to Cut-Off (test code = Hep 0.03 1 Signal to Cut-Off) [facility] YlppficMMSUOWSZKB9485-46-17 12:43:0011.6[facility] HermannTOXICOLOGY 2020-09-12 12:43:00 Test Item Value Reference Range Interpretation Comments Vanco Tr TND (test code = Vanco Tr 0730 1 TND) [facility]annCHEM URCWZ2734-45-24 15:32:02030Lbnuwcos HermannCHEM PANEL 2020-09-11 15:32:0065[facility] KjelpyyRHCTGYEZJQ1797-44-81 15:32:0070[facility] ElapaytIGMFVKLIPI5413-52-64 15:32:0085.0[facility]annCHEM XZEIV1519-90-64 23:02:07591Mmhuejvb HermannCHEM NHMDV8312-98-48 23:02:0022[facility]annCHEM UMLWE3287-34-24 23:02:001.50[facility]annCHEM JVLBM2384-48-47 23:02:25325 [facility]annCHE[facility] NLVRH8290-57-12 23:02:004.7[facility]annCHEM PANEL 2020-09-10 23:02:26696Erjasttv HermannCHEM XZILF6734-90-52 23:02:0022[facility]annCHEM BXZDX8103-23-55 23:02:007.7[facility]annCHEM IVOOB4772-32-22 23:02:0016.7[facility]annCHEM CLOKX2062-11-02 23:02:0052[facility] JOTFPZEBTN2276-57-52 23:02:00 Test Item Value Reference Range Interpretation Comments PROTIME (test code = PROTIME) 14.5 s 12.0-14.7 [facility] SfhnuasPNSCCJKZGD2757-47-17 23:02:00 Test Item Value Reference Range Interpretation Comments INR (test code = INR) 1.14 1 0.85-1.17 [facility] EoiasyeAJZMSMCHFC0364-49-40 23:02:00 Test Item Value Reference Range Interpretation Comments aPTT (test code = aPTT) 36.3 s 22.9-35.8 [facility] QgjcathMFEBXSOSAV9967-05-40 23:02:006.1[facility]annHEMATOLOGY 2020-09-10 23:02:003.81[facility] MrpicsgVJWTZUYGWB2537-42-83 23:02:0011.3[facility] LmyctkvJGAIOSDQFQ9478-18-46 23:02:0034.3[facility] ExrpkaoWEWNDJYBOS2396-56-19 23:02:0090.0[facility] YooreaeHFCNKLJNLG4306-13-00 23:02:00 Test Item Value Reference Range Interpretation Comments MCH (test code = MCH) 29.5 pg 27.0-31.0 [facility] HxnsqnzQEWTMHWDEM6059-69-14 23:02:0032.8[facility]annHEMATOLOGY 2020-09-10 23:02:0020.7[facility] VgvownrGSEKRZQXUK6149-71-58 23:02:88621Qcyjedbj WynmsjpMYVSHQXKQR4639-95-56 23:02:008.3[facility] ZrhvpwdCZIBWVMRRK3988-67-41 23:02:0068.7[facility] WpcamnyLVNQTBMSQQ6192-96-79 23:02:0013.7[facility] IHGFIWTCFE5043-22-22 23:02:0012.9[facility] WuyzaqjUZEFJLOHBJ5960-42-88 23:02:00 4.1[facility] WxshdlhEHLSAOTJXJ3853-51-23 23:02:000.6[facility] HermannHEMATOLOGY 2020-09-10 23:02:004.2[facility] SysavkyTKPTPQQOTS3099-19-68 23:02:000.8[facility] ZjffwabIUXEMSLQYT5844-05-27 23:02:000.8[facility] VhrawkyAOZIQIIVIK7404-60-09 23:02:000.2[facility] HpatlfnHSDBRPSEVA5766-35-44 20:35:00Not Detected (09/10/20 2:35 PM)[facility][] CULTURE, AEROBIC AND ANAEROBIC W/GRAM STAIN 2020-09-10 00:00:00 Test Item Value Reference Range Interpretation Comments CULTURE (test See Comment A CULTURE, AEROB IC BACTERIA code = CULTURE) Micro Nu mber: [id number] Test Status: Final Speci men Source: RIGHT THIGH Specimen Qualit y: Adequate Resul t: Heavy growth of Pseudomonas aer uginosa COMMENT: Additional orga nisms of questionable si gnificance were isolated that n ormally do not warrant identific ation and susceptibilitie s. Please contact the lab oratory within three da ys if identification and susceptibilitie s are clinically indicated. Ps.aeruginosa - INT MARICRUZ CEFEPIME S 4 CEFTA ZIDIME S 4 CIPROFLOXACIN S 0.5 GENTAM ICIN S <=1 IMIPENEM S 2 LEVOFLOX ACIN I 2 PIP/TAZOBACTAM I 32 TOBRAMY TRE S <=1S=Susceptibl e I=Intermediate R=Resistant * = Not TestedNR = Not Reported NN = See Ther apy Comments [facility] Biopsy Twhfdmfoqukiex4198-59-60 20:27:00 Test Item Value Reference Range Interpretation Comments Submitted Clinical History w4ubsETvZZNsnVL7YaX (test code = 93715) kZRWid9cue5DheJQbpW XxBKcqzJLdjxAvdh32m CI5zV89NH5rCNSuVoB4 ZHHjywY1Nxp5RVHsMBX xkPOiX434g9fam3srfe AmeRL6xLcsNYXwAAJgE SfdCMWpZeUmRONdg2Dz EZdtrEa6NKQtGdUxJ6X cl58ouEHymYHdOMYuvr 0= Diagnosis (test code = 34) g4uemAOhADQjyFE3VlP oLYBfz6gve7RytKOnpL MiEIbfhDAukuIaew65g VN7dH43NR5eRBLwWzC9 XDCucoK5Ryl8GBPsAJC yiUYqI584d0mww9aiqm LsoYG0uNiaIDLsFEFcM VlwOVUnLrGrRN1mUTon olGyQVIunR6aw3r3ZMr bdtNcW5vsg15uLfJcTW WfcZx3hLFlz1m1wADdg SvmCIVrJK6dAORhBZTh HFikhoWmNNRrNP5aNYH gSAAgkYq2nIU5PJRaDE KmOJBlqR7iOUzaeTdbq zJpfrq4gkvwRDnjveDh aLUmDMOzzJChky4pYJD oyNUiwlYijA33llXkl1 O4VUqaAN0qPBRxL2TfS DCcjjqge9B9OFelTRW9 AGztYGCcYkBeYbZ2PB4 cbGluZVxwYXIgSXJvbi BzdGFpbiBpcyBuZWdhd La1ZAXsb5PucTCaibNz I6V0gOMkULIlw45aOGx pbmVccGFyIERQQVMgc3 BjwO5ufTEretSfOLXwq wXaEw4tFVAssDrbVUMp SF20dATvdMYhsJ1rM0p uBdKvDVLvRaxhnR8hHD CjmyGKc9MlPBUsi6Hzt H0iTUZpinMmdTZlampo OUCym6fha0Unt2ytLZM jdfVlGPhxgTk2IILlp0 ApJ65gmNSnIFTmN1Tsy VlqvEoyhu0fwDQkgE== Comment (test code = 9835) y4gxvJMlNFMjvIJ3PvU cFGNth4yme2BdgBBwdU ZlCZllpBFphxBerc59y EH4zA48UK8tBLFxDxV7 AUCmejP6Ise8YMAsSRJ xwQGbD146m4yxf4mccs ZkqEB5fTduXAHkJGVsK WluXGZzMjAgTXVsdGlw zVKuT36iNRKde2QvmDc iMJlqdrKhWGHwu9ClhX RkrI22ZUOheXZcc1Toc cDpELtgycEzZJIxD1pr yWYnhQOiBQJ4bQBhHAX kke4lyVOagNGhDHPzkW irCUGghKDzu8NpXS0oK LMpzgOfsVsnTUZlbB7m iGViGLBoXVNuq5Z9xEI yIGluZmlsdHJhdGUgb2 GnpS8gr481U9dlONUip O4hnTDcqWL2x7X4DDXd sGgeBDDcwuOvg84dlqI fyPb7MRFihGZjyGPjgw cth5QlaBeotEkaR8x5D ZRau2q6rYKkQ7Xvt2dn ocHmJXMum4inn3EadKt yVhFoFHBeGWFvY9u1PL Gkm8eafoAjawyqQU9hT TWwRpYmoio5cunmfH8g pCLvbH6kQQj7CVNyjKe xEFGwCT9rJHVpOXD9xN 9wbGFzbWljIHBzZXVkb e1kdk78arBoV1vzr4Fa uE9rqROgrA6tebXwCAL MTPI1EYftCVdwPS7iFJ IdA1ZyQBQxgRftd24so ffhO0ernozxen8mPY1c sh6nyCQ7BR2eKFAukHW gZHVjdHMgYXJlIHVucm ZvLJSnMSGuXOK2aQQig 0B2EGV9wNGwkeIbTV5a DQAghNUxCK3sUZ6oXYX dH02xPmcaRD79MBN0XM O2g1GjknwbO66nZtg5A J35DIydeGR1i9KrdTa9 nZEpAU1bQ9Ugk2srFL5 hJFniHM93eM2tMHTeQK DctFilsBRbIwgosU9wA EqixbSqDHlqZFTmBG5h QNImNXCiRB3volXvMBP jGvxzTDoob0W9XGVcWC PcgTanxE3jrEUxRWVjq ul4xmzvf8tqiKyvWFTo WH7dXUOeJfW4pHNnEEe uLyDvFY76dIRdHMNyQI umm4DeqePaTCKoPVMru jY2aXUobTkjcD7qo0kc ZeLmeQBbA4ToXgygYKV 9 Gross Description (test j9xqeQYqCGXqeCZCIGB code = [id number]) wMFxhbnNpXHNwbHRwZ3 EaddkaHRkiMS0jTH1oy TgcwPFpyFIkDC4UEROv ZmYxXHBhcGVydzEyMjQ qRWJdrEWlpHI1RRDmAB 1hcmdsMTgwMFxtYXJnc mY6LLYouEDyY2AcZXIc GS9uenjxLMN9CEyudK5 xwdPELgmcNq8slZUqmF tcZjFcZmNoYXJzZXQwX IGacGqmETZeGKu4pJ2R UaqyZOJ9QBMTFqxnCZT mSS1Ls3rpCTCgbMHaZP E7XCjgfMMiIYSvRBMnS Qv5DSWdLZfndZPfFO7z oPtgGhjmsJtws3WgoWP cXGlkIDUxMDAyIFxcZG JiWS3FXhJsPDNpOic0C JCbJSf8ZEt3IV7WWnBi AANpJPsqWdg6PTPfEEg 5UEubUG6NNSN5LMN1Ku PnJmY6NGk6CoOvHWChM iBcXGYgQXJpYWwgXFxm cyAxMCBcXGZiIFxcZmw pMZosD63ylQhaqC7aEs rexyFiPHA6EXUkzhKEU lxwbGFpblxlcGljTmVz dERvYzEgDQpcbHRycGF yXGxpbjBccmluMCANCl xsdHJjaFxiXGZzMjAgT Hr9CZXkNMmqhiPuQuvf UNArS91bp8rnjDPgv2E pDdZ8KH1qn04noYJ7yA XkzSWeFpCbB37uetUxE DJhohsdpmbstA2ed9k9 YVFhxg5aYADoFm8dMpX oF70jfD2joJBzH8LqDR nwmZspKP8xZZNssqDdY TDxMpItLfIiZ48mxM9i RMibcDT0OVAmCOGpGPK pbWVucyBhcmUgZmlsdG DwIUHiOSKstXvnKLi2W OK7Za9jkQDnKSNaklOB QN0kUIqwcn53KHT1c7z maWVsZHtcKlxmbGRpbn K2CSoPIQUITHjSWaFxN K3xBFvCTcsBSEhHWdgd IYLtFjesfONHVBX0BNu uyPyxjLq1j7acwYIlf0 a3IDaxGNO0bWtVi4lrq WVsZHtcKlxmbGRpbnN0 IEhZUEVSTElOSyBuYW1 tQGyNUdnPLsO2IrSnPC C7KSjVO9NZbAV1Qtt3F Er2eMbdBpodpaZmiPBq KsUGdL5ozMkviP0ujBL bS7xbSdYaCKEJXaegrM FpblxlcGljTmVzdERvY zVbjQuufQ69HVAbiHTf FQQ3TC4pYDOghsqjDWE qAKWoNHN8SPxrsR94uI MoHVDhJJRzgVWyrY1SC XCrNNA1GCsfzC64cJGx EH8FSHKvCLX3CMPdxSX uYLA9YQ5yqE7ItN== Disclaimer (test code = w3lvbZJrOWLalTInLxE 9844) hHHTlQIBrn6siKATxrK FuZzEwMzNcZnRuYmpcd ZMkLSTbQjEso6qze197 pYSqj4gwLTPkLeY1mUW lWHGqaUSkV163XFKzOP gcf1chg6HuPXGifBHgj 6M7RTLLahfeePu4wYyd K23gt2I1FstqR5htXKE nDTZgJ0RgJV1lPBIuTk k4NVJ9XMF7EAAgCTCvE 7JkEE9pSUGhmSXqKMo6 o0fpsSrmKFCaFZN8s4w uIRabkdRaPF8zuo8yvX o2h6wmgeMtONPfOEFzo KZDJNDzZ7VzlUsfHg0y aBa7hMroAkqoFTZ0Juo 9PM0nqa35ozh3tTcwEC OqkhjuHsG4LFieEETjl ifvOBn8NHllRJDzrOS9 ATVrmCMiQ3EbKPTnJV9 zcmf9VTJ3NIxpYFRcRr W4WORrhDZbFDWukChuD Kddo643GRH0VdPvMY7e P9Pnd5L8hF8hjELnDAS eaNPbNmIdWPBnzy7paV GsZQjid2VqHGK5lwD1v PDcbSYgDCXmZZ50Vqum a8UhSgfxAAI9EAYtnqY yr1Psa3pyXlVdmxKwP2 ytC3RcNTUgORIhAEZcY wAfkmWqm3Aaq5OtmAHn tKk6d9ciTKFyAQPupOv ds8viDVI3MLQvI5V2eC Pyr1yiFRdsHXKvrNK8s cF6KOXqlRQbA0WzkF8h WOXuRX4zafm3s0tdYCV 4HPgsTMUsVyQ4seM2VZ BcaGVhZGVyeTcyMFxmb 900CJJ9HvKaSOBvm9Ux Z1UpxNfqF54psEyoS24 bXGFzrCswbA7geZfksH 5cZjBcZnMyNFxxbFxwb AWehytqVNafjqI3YWxf wmzmZAFgGXelI1bmTeJ aUBSsqLheTUeeq8LwSE DpJDTyTqcvydE1VIENx 38vZNDbv5BzDVMrfO6t kPSvEYbinlHrcLT6ASa hdmUgYmVlbiBkZXZlbG 6cOFRhCD6dMNUhbqDbi u7esmFaEZMyFOFqI4Yx cmlzdGljcyBkZXRlcm1 asnHgWRX2OQMQDG5SIT QhMRAgr14fRJJorInmx W8qoVJpgcGcRYXvz5Pb eY3gzUKMILKzH6oeYC8 nJFpsf1LsvFNixHXcsE P9MZTbz8TzJiFnhjZsc NNgdSNzL6QpxAxnO5lx DZPwFBUtdqJvcORhv4M tKWWetPJ2rYUdUO8XRx IJt42vFMXrADBQydUgF XWlqDyxvCU9uoB1lZ8s LiBJZiBhcHBsaWNhYmx jZLArn720in1egvD4ZK RuMHWmcshyy9KpLYEhU PZnzL97FUVqFIYppz2w wxqgzISpktJhJ1Ggsqf 2iK6dBLVlUPzbVOScUS ZzMjJcbGFuZzEwMzNca GljaFxmMVxkYmNoXGYx VZukW4skJdKsYqTfRbi wYXJ9 MD Marie NON-TARGET LIVER [id number] 11:05:47Date of Procedure: 09/06/20 Attending Physician: Getachew Flores MD Multifocal Lens Assembler: None Pre Procedure Diagnosis: Abnormal level of other serum enzyme; Liver function tests abnormal Post Procedure Diagnosis: Unchanged Indication: Evaluate cause/extent of liver dysfunction. Title of Procedure:Percutaneous Ultrasound-Guided Non-Target Liver Biopsy Operative Findings: Percutaneous image-guided biopsy of the right liver parenchyma. Consent: The procedure, risks, indications and alternatives were explained. All questions were answered and informed consent was obtained. I have reviewed the history and physical dictated by the mid-level practitioner / fellow. Sedation/Anesthesia: Moderate sedationfor pain control and anxiety was administered by a dedicated nurse under my supervision. There was continuous monitoring of oxygen saturation, heart rate and intermittent monitoring of blood pressure during the procedure. Medication given was midazolam and fentanyl. I was present for the administration of the medications indicated above.Procedure Events Event Event Time Sedation Start 09/06/2020 12:10 PM Sedation End 09/06/2020 12:35 PM Procedure in Detail: A time out was performed prior to thestart of the procedure and the correct patient, procedure, presence of consent, site, and side were confirmed with all members of the team. With the patient in the supine position, the skin overlying the area of interest was prepped and draped in the usual sterile fashion. Lidocaine 1% was used for local anesthesia. Using an anterior approach under ultrasound image-guidance, a 17 gauge needle was advanced down to the liver parenchyma. An image was obtained and placed into the medical record. Samples were obtained for evaluation. Sampling:Core biopsy: An 18 gauge needle was used to obtain samples for surgical pathology evaluation. Specimens Disposition:Diagnostic Biopsy: The biopsy samples were submitted to pathology. Additional Comments: None Estimated Blood Loss: Minimal Immediate Compl ications: None Disposition: PACU Plan: No follow-up with Interventional Radiology required. [facility] Glucose [id number] 17:50:23 Test Item Value Reference Range Interpretation Comments POC Glucose (test 172 mg/dL 70-99 H MD Boykin dRN code = 16227-2) NotifiedCapi llary blood samples, e.g. o btained by fingerstick, may have inaccurate results in patients wit h decreased perip heral blood flow. Met hod description: Al l results are magali sured using Electroch emistry test methodolog y. The glucose in the sample mixes with the reagents on the test str ip. The reaction produc es an electric curren t. The amount of curre nt produced is proportional to the glucose concent ration in the blood. PO Sample Type (test Venous code = 9554) Lab Interpretation Abnormal (test code = 26589-0) MD ToMD COVID-19 (PHUONG-CoV-2) PCR [id number] 00:50:02 Test Item Value Reference Range Interpretation Comments COVID19 SARS Pre-Radiation Therapy Indication (test code = 10577) COVID19 SARS Result Not Detected Not Detected (test code = 01596-5) COVID19 SARS SARS-CoV-2 NOT Interpretation (test Detected. Reference code = 71901) Range: Not Detected Methodology: The [facility] High-throughput SARS-CoV-2 RT-PCR Assay is a qualitative RT-PCR test intended for the detection of SARS CoV-2 RNA in nasal, nasopharyngeal and oropharyngeal swabs from individuals who are suspected of COVID-19 by their health care provider. The test utilizes primers and probes for viral N1 and N2 sequences, and controls as characterized in the Centers for Disease Control and Prevention (CDC) 2019-Novel Coronavirus (2019-nCoV) Real-Time Reverse Transcriptase (RT)-PCR Diagnostic Panel. Results must be interpreted within the context of all relevant clinical and laboratory findings, and epidemiological risk factors. Positive results are indicative of the presence of SARS-CoV-2 RNA. Clinical correlation with patient history and other diagnostic information is necessary to determine patient infection status. Positive results do not rule out bacterial infection or co-infection with other viruses. Negative results do not preclude SARS-CoV-2 infection and should not be used as the sole basis for patient management decisions. This test was developed and its performance characteristics were validated by the CLIA-certified, high-complexity Molecular Diagnostics Laboratory (MDL) at [facility] for clinical use under the Food and Drug Administration (FDA) s Emergency Use Authorization. Factsheet for patients: https://www.[facility]. org/WORPU54ANRHktbdegpG actsheet for healthcare providers: https://www.[facility]. 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 IMPRESSION: 1. Unchanged appearance of internally fixated pathologic fracture of the subtrochanteric right femur, without evidence of hardware complication. 07/14/2020 10:56 AM SALOONKEEPER Nuno Byrd [facility] Hepatitis C Virus Ab Screen, Reflex HCV PCR 2020-06-30 16:31:06 Test Item Value Reference Range Interpretation Comments HCV Ab Screen-[facility] Negative Negative Signal-to -cutoff ratio is (test code = <1.00. Test Per formed 57446-3) by:[place] [address]Lab Director: Donald Rubio M.D. Ph. D.; CLIA# [id number] MD ToHepatitis B Surface [id number] 16:31:05 Test Item Value Reference Range Interpretation Comments Hep Bs Ab-[facility] Negative Patient is pr esumed to be (test code = not immune to i nfection 40776-6) with HBV. ----REFEREN CE VALUE -----Unvaccinat ed: NegativeVaccina jossue: Positive [facility] mIU/mL --------- REFERE (test code = NCE 5193-8) VALUE -----Unvaccinat ed: <5.0Vaccinated: >=12.0 Test Performed by:[facility] ior [id number] [employer] [place], [place] [address]Qyi Director: Donald Rubio M.D. Ph. D.; CLIA# [id number] MD Perdomo B Core Total [id number] 16:31:04 Test Item Value Reference Range Interpretation Comments HBc Total Ab-[facility] Negative Negative Test Perf ormed by:[facility] (test code = [facility] - 86537-1) [place] [id number] [employer] [place], [place] [address]Ema Director: Donald Rubio M.D. Ph. D.; CLIA# [id number] MD Perdomo B Surface Ag w/Opgjmzp1998-22-15 16:11:46 Test Item Value Reference Range Interpretation Comments Hep Bs Ag-[facility] Negative Negative Test Perform ed by:[facility] (test code = [facility] - 5196-1) [place] [id number] [employer] [place], [place] [address]Kgs Director: Donald Rubio M.D. Ph. D.; CLIA# [id number] MD Perdomo C Virus [id number] 17:17:14 Test Item Value Reference Range Interpretation Comments HCVAb Received (test See Note HCVAb w as sent to a code = 44228) reference lab for testing. Expec t results on Hepa titis C Virus Ab Screen w/Reflex HCV PC R within 96 hours. MD Perdomo B Surface [id number] 17:17:13 Test Item Value Reference Range Interpretation Comments HBsAg Received (test See Note HBsAg w as sent to a code = 20215) reference lab for testing. Expec t results on Hepa titis B Surface Antigen w/ Confirm within 96 hours. MD Conor Odom Total Ig Core Ab (SCREENING) (anti-HBc total Ig; HBcAb total Ig)2020-06-28 17:17:12 Test Item Value Reference Range Interpretation Comments HBcAb Received (test See Note HBcAb w as sent to a code = 65177) reference lab for testing. Expec t results on Hepa titis B Core Total Ab w ithin 96 hours. MD ToUS [id number] 22:50:041. Hepatomegaly with diffuse hepatic steatosis. No focal hepatic lesions.2. No cholelithiasis or biliary abnormality. I personally reviewed these image(s) along with the resident's/fellow's interpretations, certify that if a procedure was performed I was physically present, and agree with the final report.Interface, Radiology Results In - 06/25/2020 5:52 PM CDTFULL RESULT:Examination: US LIVER, 3:41 PMClinical History: Malignant neoplasm of left kidney, except renal pelvisIndication: Increase Liver Function Tests/Obstruction Comparison: CT chest abdomen pelvis 06/25/2020Technique: Grayscale and color Doppler ultrasound of the abdominal right upper quadrant was performed.Findings:Liver: The liver is enlarged measuring 19.7 cm in length. There is diffusely increased hepatic echotexture compatible with fatty infiltration. No focal hepatic lesions are seen. The main portal vein is borderline enlarged measuring 1.4 cm but demonstrates normal hepatopedal flow. There is no intra or extrahepatic biliary ductal dilatation.Gallbladder: The gallbladder is normal in appearance with no cholelithiasis, wall thickening, pericholecystic fluid, or other evidence of acute cholecystitis.Common Bile duct: Normal, 0.4 cm in caliber.Pancreas: Visualized portions are normal.Right Kidney: Measures 15.8 cm in length with no suspicious lesions, nephrolithiasis, or hydronephrosis.IMPRESSION:1. Hepatomeg norman with diffuse hepatic steatosis. No focal hepatic lesions.2. No cholelithiasis or biliary abnormality.I personally reviewed these image(s) along with the resident's/fellow's interpretations, certify that if a procedure was performed I was physically present, and agree with the final report.MD To X-ray Chest 2 [id number] 16:35:59Enlarging left hilar nodes concerning for naheed metastatic disease 2.5 cm in diameter. No sign of consolidation to suggest pneumonia. No pleural effusions. Interface, Radiology Results In 06/18/2020 11:38 AM CDTFULL RESULT:Examination: Chest, 2 views, 06/18/2020 11:25 AMClinical History: Malignant neoplasm of left kidney, except renal pelvis: Assess for active or metastatic intrathoracic disease.Clarify subsequent treatment strategy.Indication: Cough, neoplasm of kidney COVID-19 Not Suspected: Assess for active or metastatic intrathoracic disease. Clarify subsequent treatment strategy.Comparison: NoneTechnique: Posterior, lateral and dual-energy radiograph of the chestFindings:The left hilarregion has enlarged in the interval from the previous study concerning for naheed metastatic disease, approximately 2.5 cm in diameter.No acute airspace opacities. No pleural effusions.Incidental note is made of an azygos lobe.Degenerative changes of the spine. The cardiac silhouette is not enlarged.IMPRESSION:Enlarging left hilar nodes concerning for naheed metastatic disease 2.5 cm in diameter. No sign of consolidation to suggest pneumonia. No pleural effusions.MD ToPoshelen Op Promis 29 [id number] 15:36:57 Test Item Value Reference Range Interpretation Comments Pain Interference: (test code = Pain 52.2 1 N Interference:) Pain Intensity: (test code = Pain 35.8 1 N Intensity:) Physical Function: (test code = 38.9 1 N Physical Function:) Satisfaction Role: (test code = 45.8 1 N Satisfaction Role:) [facility] NOTE [id number] 13:48:45Guerita Ng MD - 04/15/2020 8:48 AM CDTPatient Name: Alex Walls: ManojMRN: [id number] Date No Time: 04/15/2020Instrument Name: [id number](s): GALO JESSICArocedchantlele Name: Upper GI endoscopyScope In: 8:50:46 AMScope Out: 9:06:06 AMTotalProcedure Duration Time 0 hours 15 minutes 20 seconds Indications: Suspected upper gastrointestinal bleeding in patient with chronic blood loss. Know gastric body mass ( metastatic RCC).Medications: Monitored Anesthesia CareProcedure Description: Pre-Anesthesia Assessment: - Prior to the procedure, a History and Physical was performed, and patient medications and allergies were reviewed. The patient's tolerance of previous anesthesia was also reviewed. The risks and benefits of the procedureand the sedation options and risks were discussed with the patient. All questions were answered, and informed consent was obtained. Prior Anticoagulants: The patient has taken no previous anticoagulant or antiplatelet agents. ASA Grade Assessment: III - A patient with severe systemic disease. After reviewing the risks and benefits, the patient was deemed in satisfactory condition to undergo theprocedure. - Prior Aspirin/ NSAID therapy: The patient has taken no previous aspirin or NSAID medications. Informed consent was obtained. Throughout the procedure, the patient's blood pressure, pulse,and oxygen saturations were monitored continuously. The Olympus [id number]-HQ190 ([id number]) upper endoscope - (9.9 mm dm) was introduced through the mouth, and advanced to the second part of duodenum. The upper GI endoscopy was accomplished without difficulty. The patient tolerated the procedure well.Findings: The examined esophagus was normal. The previously seen gastric body mass ( 02/13) was significantly smaller ( > 90%) with no was found in the distal gastric body. Superfical small clean based ulcerations were seen. Oozing from one was seen on contact. For hemostasis, two hemostatic clip were successfully placed (MR conditional). Coagulation for hemostasis using argon plasma at 0.8 liters/minute and 30 [place] was successful. There was no bleeding at the end of the procedure. Estimated blood loss was minimal. The examined duodenum was normal.Complications: No immediate complications.Estimated Blood Loss: Estimated blood loss was minimal.Post Procedure Diagnosis: - Normal esophagus. 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 Superficial small ulcerations seen at the tumor site. Minor oozing on contact from one ulceration. Clip (MR conditional) was placed. Treated with argon plasma coagulation (APC). - Normal examined duodenum. - No specimens collected.Recommendation: - Full liquid diet today. Then advance. - No aspirin, ibuprofen, naproxen, or other non-steroidal anti-inflammatory drugs. -PPI once a day - Patient has a contact number available for emergencies. The signs and symptoms of potential delayed complications were discussed with the patient. Return to normal activities tomorrow. Written discharge instructions were provided to the patient.Attending Participation: GUERITA NG MD04/15/2020 1:25:50 PMThis report has been signed electronically.Number of Addenda: 0MD [facility] VBG + Lytes and Glucose 2020-04-15 13:00:30 Test Item Value Reference Range Interpretation Comments POC VB pH (test code = 7.34 7.31-7.41 2746-6) POC VB pCO2 (test code 36 See_Comment L [Aut omated message] = 2020-11) The system [employer] generated this result transmit jossue reference range : 41 - 51 mmHg. The reference range was not used to interpret this result as normal/abnormal . POC VB pO2 (test code 44 mmHg = 2705-2) POC VB TCO2 (test code 20 See_Comment L [Aut omated message] = 2026-08) The system [employer] generated this result transmit jossue reference range : 24 - 29 mEq/L. The reference range was not used to interpret this result as normal/abnormal . POC VB Bicarb (test 19 mmol/L 23-28 L code = 30624-9) POC VB Base Ex (test -6 mmol/L -2-3 L code = 1927-3) POC VB O2 Sat (test 77 % code = 6716) POC Hct (test code = 34.0 % 38-51 L 06622-0) POC Hgb (test code = 11.6 See_Comment L Hematoc rit values 718-7) from the iSTAT are determined conductometrica lly, which may be affected by WBC count, levels o f total protein, lipids, or sodi um. The hemoglobin result is calcu lated based on the corresponding measured hemato crit and assumes a n ormal MCHC. If there is a discepency betw een the results fro m iSTAT and conventional laboratory meth od, the result from conventional me thod should be consi dered the accurate standard. [Automated mess age] The system [employer] generated this result transmit jossue reference range : 12.0 - 17.0 gm/ dL. The reference r sheng was not used to interpret this result as normal/abnormal . POC Ion Ca (test code 1.17 mmol/L 1.12-1.32 = 58472-4) POC K (test code = 5.3 See_Comment H [Automat ed message] 50602-8) The system [employer] generated this result transmit jossue reference range : 3.5 - 4.9 mEq/L. Th e reference range was not used to interpret this result as normal/abnormal . POC NA (test code = 136 See_Comment L [Automa jossue message] 88120-9) The system OleOleic Tykoon generated this result transmit jossue reference range : 138 - 146 mEq/L. Th e reference range was not used to interpret this result as normal/abnormal . POC Glucose (test code 208 mg/dL 70-99 H = 58385-8) POC Sample Type (test Venous code = 6690) POC Clean Dev (test Yes code = 6672) Lab Interpretation Abnormal (test code = 55779-5) MD ToCOVID-19 (SARS-CoV-2) PCR-Asymptomatic [id number] 18:21:13 Test Item Value Reference Range Interpretation Comments COVID19 (SARS Not Detected Not Detected This test is a CoV-2) Result qualitative (test code = reverse-transcr iptase 20453-7) polymerase paloma n reaction (RT-PC R) developed for t he Gendel RAMONITA 680 0 system and inte nded for the detecti on of SARS CoV-2 RNA in human nasophary ngeal specimens from patients who me et COVID-19 clinic al and/or epidemiological criteria. This assay has been approv ed by the FDA for use only under Emergency Use Authorization ( EUA) in laboratories that have been CLIA-certified to perform moderate-comple xity and high-comple xity tests. The performance characteristics of this assay were verified by the Microbiology Laboratory at [facility], CLIA Accreditation # : [id number] and CAP Accreditation # : [id number]. Result s must be interpreted within the context of all relevant clinic al and laboratory find ings and should not form the sole basis for a diagnosis or treatment decis ion. "Presumptive Positive" resul ts are due to partial amplification o f SARS-CoV-2 targ ets and indicates l ow amounts of viru s present in the specimen at or near the limit of detection. Regardless, individuals wit h "Presumptive Positive" resul ts should be manag ed per institutional guidelines as individuals pos itive for SARS-CoV-2 virus, including use o f appropriate inf ection control protoco ls. Internal contro ls are included to ass ess for possible amplification inhibitors. If inhibition is detected, testi ng is repeated and if inhibition is confirmed the specimen is res ulted as "Invalid". W hen an "Invalid" resul t occur, it is recommended to wait 3 days before submitting a ne w specimen for te sting if clinically indicated. COVID19 SARS TRAVEL PROFESSIONAL Swab Source (test code = 98329) COVID19 SARS Pre-Out of OR Indication (test Procedure code = 02946) MD Diaz Interpretation [id number] 21:28:55 Test Item Value Reference Range Interpretation Comments TMP XM Interp RBC units (test code = crossmatched for 7566) transfusion appear SASCHA BARCLAY acceptable. ROBBIE,Dictated by: EM AVALOS, Dictated Date/Time: 16:28 PM CDT Transcribed Manpreet e/Time: 04.01.2020 16:2 8 PM CDTElectronical ly Signed By: CHRISTIANA AVALOS, on 16:28 PM MD ToPremacarena RBC:ATC, 1 [id number] 18:34:49 Test Item Value Reference Range Interpretation Comments PRBC Product Ready 1 Red Blood Cells (test code = Available - 16494-9) Order Form 03 when ready for product issue. Unit Number (test [id number] code = 7002) Product Code (test [id number] code = 7003) Unit Expiration (test code = 958927) Unit Blood Type 600 (test code = 7004) Product Code Text RBCIRLR CPD AS1 (test code = 500mL ) Crossmatch Expiration Date (test code = ) Unit Irradiated IRRADIATED (test code = 400011) Dispense Status ISSUED (test code = 7001) Unit Blood Type A Negative ____ (test code = 7005) _ ____ MD ToConfirm [id number] 16:59:51 Test Item Value Reference Range Interpretation Comments ABORh Confirm. (test code = 882-1) A NEG MD AndersonMRI Brain with and without [id number] 18:31:57No evidence of intracranial metastasis. Interface, Radiology Results In - 03/31/2020 1:34 PM CDTFULL RESULT:Examination: MRI BRAIN W WO CONTRAST on 03/31/2020 12:57 PMClinical History: 54-year-old patient with diagnosis of renal cell carcinoma.Indication: Restaging - Active immunotherapy, Restage mRCC.Comparison: 02/28/2019Technique: MR imaging of the brain was obtained before and after contrast administration as per departmental protocol.Findings: Imaging is mildly degraded by motion and pulsation artifacts. There are no measurable enhancing parenchymal lesions to suggest metastasis.The ventricles are stable in size and within the midline. There is nonspecific mild periventricular and subcortical white matter T2 hyperintensity. There are no areas of restricted diffusion or large volume hemorrhage.No concerning calvarial lesions are noted. There is no epidural mass.IMPRESSION:No evidence of intracranial metastasis.MD To ENDOSCOPY NOTE [id number] 19:17:54Guerita Ng MD - 02/20/2020 2:17 PM CDTPatient Name: Alex Walls: ManojMRN: [id number] Date No Time: 02/20/2020Instrument Name: [id number] COLON - CFProceduralist(s): GALO JESSICArocedchantelle Name: ColonoscopyScope In: 2:49:56 PMScope Out: 3:07:03 PMScope Withdrawal Time 0 hours 11 minutes 25 seconds Total Procedure Duration Time 0 hours 17 minutes 7 seconds Indications: Hematochezia, Renal cell cancer.Medications: Monitored Anesthesia CareProcedure Description: Pre-Anesthesia Assessment: - Prior to the procedure, a History and Physical was performed, and patient medications and allergies were reviewed. The patient's tolerance of previous anesthesia was also reviewed. The risks and benefits of the procedure and the sedation options and risks were discussed with the patient. All questions were answered, and informed consent was obtained. Prior Anticoagulants: The patient has taken Plavix (clopidogrel), last dose was 4 days prior to procedure. ASA Grade Assessment: III -A patient with severe systemic disease. After reviewing the risks and benefits, the patient was deemed in satisfactory condition to undergo the procedure. Informed consent was obtained. Throughout the procedure, the patient's blood pressure, pulse,and oxygen saturations were monitored continuously.The Olympus CF-[id number] ([id number]) adult colonoscope was introduced throughthe anus and advanced to the cecum, identified by appendiceal orifice and ileocecal valve. The colonoscopy was performed without difficulty. The patient tolerated the procedure well. The quality of the bowel preparation was good. The ileocecal valve, appendiceal orifice, and rectum were photographed.Findings: The perianal and digital rectal examinations were normal. The colon (entire examined portion) appeared normal. Internal hemorrhoids were found during retroflexion. The hemorrhoids were Grade I (int ernal hemorrhoids that do not prolapse).Complications: No immediate complications.Estimated Blood Loss: Estimated blood loss was minimal.Post Procedure Diagnosis: - The entire examined colon is normal. - Internal hemorrhoids. - No specimens collected.Recommendation: - Resume previous diet. - Continue present medications. - No recommendation at this time regarding repeat colonoscopy due to no evidence of mucosal or other abnormalities on today's exam. - Patient has a contact number available for emergencies. The signs and symptoms of potential delayed complications were discussed with the patient. Return to normal activities tomorrow. Written discharge instructions were provided to the patient.Attending Participation: GUERITA NG MD02/20/2020 3:19:15 PMThis report has been signed electronically.Number of Addenda: 0MD YousufHemoglobin [id number] 16:08:49 Test Item Value Reference Range Interpretation Comments A1C (test code = 4632) 7.9 % 4.3-5.6 H HbA1c values >=6.5% are diagnostic of diabetes mellitus.Diagno sis should be confi rmed by repeat testing.Therape utic Action suggeste d: >8.0% HbA1c; Go al oftherapy: <7.0 % HbA1c Lab Interpretation (test Abnormal code = 11794-8) MD To[U] XRAY FEMUR 2 VWS RIGHT [id number] 08:05:00 Test Item Value Reference Range Interpretation Comments XR FEMUR 2 VWS EXAM: XR FEMUR 2 VWS RIGHT RIGHT (test code DATE: 01/14/2020 9:26 AM CDT = XR FEMUR 2 VWS INDICATION: Metastatic renal RIGHT) cell carcinoma to bone COMPARISON: Left femur 07/27/2019 TECHNIQUE: AP and lateral radiographs of the right femur DISCUSSION: Again seen is a cephalomedullary fixation of the femur with femoral neck and distal interlocking screws, cross the subtrochanteric pathologic fracture. Alignment is satisfactory. There is no evidence of hardware complication. There is no significant change with areas of incomplete bony bridging. There is no new acute fracture or malalignment. IMPRESSION: Unchanged appearance of internally fixated pathologic fracture of the subtrochanteric right femur, without evidence of hardware complication. 01/14/2020 1:36 PM CDT Tim De La Vega [facility][QL] SED RATE BY NATHAN [id number] 13:39:00 Test Item Value Reference Range Interpretation Comments SED RATE BY MODIFIED ANIYAH (test 58 mm/h < OR = 20 code = SED RATE BY NATHAN DILL) [facility][QL] CBC (INCLUDES DIFF/PLT)2020-01-01 13:39:00 Test Item Value Reference Range Interpretation Comments WHITE BLOOD CELL COUNT 8.2 {Thousand/u} 3.8-10.8 N (test code = WHITE BLOOD CELL COUNT) RED BLOOD CELL COUNT (test 3.40 {Million/uL} 4.20-5.80 code = RED BLOOD CELL COUNT) HEMAGLOBIN; Below Low 10.1 g/dl 13.2-17.1 Threshold (test code = 96416-6) HEMATOCRIT; Below Low 31.5 % 38.5-50.0 Threshold (test code = 4544-3) MCV; Normal (test code = 92.6 fL 80.0-100.0 N 787-2) MCHC; Normal (test code = 32.1 g/dl 32.0-36.0 N 10372-0) RDW; Above High Threshold 15.2 % 11.0-15.0 (test code = 788-0) PLATELET COUNT; Normal 357 {Thousand/u} 140-400 N (test code = 777-3) MPV; Normal (test code = 10.3 fL 7.5-12.5 N 04524-5) ABSOLUTE NEUTROPHILS (test 5568 {cells/uL} 0046-5140 N code = ABSOLUTE NEUTROPHILS) ABSOLUTE LYMPHOCYTES (test 1238 {cells/uL} 850-3900 N code = ABSOLUTE LYMPHOCYTES) ABSOLUTE MONOCYTES (test 902 {cells/uL} 200-950 N code = ABSOLUTE MONOCYTES) ABSOLUTE EOSINOPHILS (test 443 {cells/uL} 15-500 N code = ABSOLUTE EOSINOPHILS) ABSOLUTE BASOPHILS (test 49 {cells/uL} 0-200 N code = ABSOLUTE BASOPHILS) NEUTROPHILS (test code = 67.9 % N NEUTROPHILS) LYMPHOCYTES (test code = 15.1 % N LYMPHOCYTES) MONOCYTES; Normal (test 11.0 % N code = 17454-0) EOSINOPHILS; Normal (test 5.4 % N code = 27069-4) BASOPHILS; Normal (test 0.6 % N code = 51129-9) [facility][QL] C-REACTIVE [id number] 13:37:00 Test Item Value Reference Range Interpretation Comments C-REACTIVE PROTEIN (test code = 26.2 mg/L <8.0 C-REACTIVE PROTEIN) [facility][U] XRAY FEMUR 2 VWS RIGHT [id number] 08:14:00 Test Item Value Reference Range Interpretation Comments XR FEMUR 2 VWS EXAM: XR FEMUR 2 VWS RIGHT RIGHT (test code = DATE: 07/30/2019 9:08 AM SALOONKEEPER XR FEMUR 2 VWS INDICATION: Draining RIGHT) postoperative woundPost-op check COMPARISON: 04/30/2019 TECHNIQUE: AP and lateral radiographs of the right femur DISCUSSION: There is no change in the alignment of the hardware in the right femur with further healing changes and sclerosis across the pathologic fracture in the subtrochanteric region. No complications. IMPRESSION:1. Further osseous bridging seen along the treated/healing pathologic fracture in the subtrochanteric region status post remaining. 07/30/2019 9:31 AM SALOONKEEPER [facility] PsmufrfldsMIJVYIAHOY3417-77-59 03:50:006.5[facility] OECHIHAWZSQI8293-77-35 08:50:0012.6[facility] BqzxjrpHRKHNNFSCYFU5396-57-41 08:50:52317Hwswukfa EqktgiqNVELAELLSIVB8546-81-64 08:50:0022[facility] JBOHSNADWHPR2830-48-79 08:50:001.27[facility] MjgqrnqSSNUGENPUTVC4421-35-69 08:50:89217Dkfboleq RpfozeeQIYHJHVIOIWH3402-33-24 08:50:004.6[facility] IPOXXKZLRHMZ2962-52-20 08:50:45223Skyswpyi EsbgolyEBCNTNJKEKDD7504-68-98 08:50:0026[facility] IsxvegxKELRTALVICPW8738-36-21 08:50:008.8[facility] AGHBYWLMAAIV6474-23-47 08:50:0065[facility] OjyxprtYWCBGETFXN3676-08-85 08:50:00 9.1[facility] ScjqpvmTBFOEZREBK7650-56-38 08:50:003.21[facility]annHEMATOLOG[facility] 2019-06-04 08:50:009.2[facility] JrjjjnqWPNNGOCWGQ8284-02-34 08:50:0027.9[facility] UdzmywsJQHAUTOEVZ7716-51-44 08:50:0087.1[facility] IgeuadeHPJCMAPITG1249-27-51 08:50:00 Test Item Value Reference Range Interpretation Comments MCH (test code = MCH) 28.6 pg 27.0-31.0 [facility] XnghibiKVADOGCNBD9860-26-62 08:50:0032.8[facility]annHEMATOLOGY 2019-06-04 08:50:0016.3[facility] GreyrphQUNWAKSWFX1102-69-85 08:50:84850Dhxqczfd OohshevIHJEMDDEFT2336-45-93 08:50:008.0[facility] FpxilolEDHXZHPKID1667-52-99 08:50:0085.3[facility] FlbpummUONHJIDBQX2951-61-54 08:50:006.2[facility] YGIPSAOIBU4516-65-37 08:50:008.1[facility] UszmtpqCZEGOQNKJO4338-81-41 08:50:000.3 [facility] BlbhqymBJMZZMLZQE7889-56-12 08:50:007.7[facility]annHEMATOLOGY 2019-06-04 08:50:000.6[facility] VrjcsnjVZNBNKMOVB1231-59-78 08:50:000.7[facility] HermannVANCOMYCIN:SUSC:PT:ISOLATE:ORDQN:YDT5135-45-42 17:58:00Enterococcus SpeciesMemorial NcktiwcOVRNYYFAYU0017-19-05 17:24:0067.5[facility] JPEGQDFWYK9194-20-77 17:24:0013.5[facility] NosghyhTNWGZSSXRC4720-24-13 17:24:00 13.8[facility] GiorcdvPXIXDUNCKT4352-61-61 17:24:004.6[facility]annHEMATOLOGY 2019-06-03 17:24:000.6[facility] HusbwomTNWPRDZOKW7036-82-26 17:24:005.3[facility] ZujxywtSHYNYDINNO2166-09-44 17:24:001.1[facility] GkyclvqBFXFNHSPMT7125-79-07 17:24:001.1[facility] YphzapdIMUVPKKEZS7779-31-69 17:24:000.4[facility] LRIINIFFJX7822-08-50 17:24:007.9[facility] VinouufEYKASESBES5815-77-28 17:24:00 3.05[facility] UvpuoawSGAUQOWZZZ1426-02-21 17:24:008.8[facility]annHEMATOLOGY 2019-06-03 17:24:0026.3[facility] MukaapcVEFDUVBAVU4341-70-48 17:24:0086.3[facility] IizfnfjHPGXULEUNA1905-95-53 17:24:00 Test Item Value Reference Range Interpretation Comments MCH (test code = MCH) 28.7 pg 27.0-31.0 [facility] KlbhdjyHAPRYXFSBN5307-97-47 17:24:0033.3[facility]annHEMATOLOGY 2019-06-03 17:24:0016.0[facility] OkgsvktEXCFLAGMVH8018-35-22 17:24:13780Ezknsypb QgggiafPLAOMDAAIQ9341-06-77 17:24:007.4[facility] EeuwfggKMZQPQGRET9449-07-95 17:24:0080.5[facility]BL[facility] PPHOSDV5712-42-75 15:57:00Product available (06/03/19 10:57 AM)[facility] RBAMSFB9050-34-17 10:00:00Product available (06/03/19 5:00 AM)[facility] RESULTS 2019-05-29 12:48:00Negative (05/29/19 7:48 AM)[facility]annCHEM PANEL 2019-05-29 12:48:56044Utltpuyr HermannCHEM CTMSK2299-40-22 12:48:0024[facility]annCHEM MXLUI0064-50-87 12:48:001.47[facility]annCHEM VDIZN2641-02-50 12:48:31700Vddloxxk HermannCHEM TKTWB8420-38-23 12:48:005.2[facility]annCHEM FUOWW8995-13-21 12:48:70134Tcjeaosf HermannCHEM VYXBK7336-94-52 12:48:0028 [facility]annCHE[facility] IEHSI3687-19-36 12:48:008.8[facility]annCHEM PANEL 2019-05-29 12:48:007.9[facility]annCHEM LQJRK3325-86-05 12:48:002.2[facility]annCHEM JWJOG3376-97-70 12:48:0051[facility]annCHEM XWHKR4819-08-40 12:48:0027[facility]annCHEM MNQDD0690-23-51 12:48:0093[facility]annCHEM EZNTF2317-07-24 12:48:000.2[facility]annCHEM CFDXD5313-26-84 12:48:0054 [facility]annCHE[facility] MLXLK2248-50-40 12:48:0013.2[facility]annCHEM PANEL 2019-05-29 12:48:00 Test Item Value Reference Range Interpretation Comments B/C Ratio (test code = B/C Ratio) 16 1 6-25 [facility]annCHEM YZSPO3716-96-40 12:48:005.7[facility]annCHEM PANEL 2019-05-29 12:48:00 Test Item Value Reference Range Interpretation Comments A/G Ratio (test code = A/G Ratio) 0.4 1 0.7-1.6 [facility] WvizsunIDFMOEALMI7797-28-86 12:48:008.7[facility]annHEMATOLOGY 2019-05-29 12:48:002.55[facility] YryebdxBYFHDCLPWY8693-65-66 12:48:007.4[facility] FyxjwbsKGJKPBTIJF3644-61-03 12:48:0022.2[facility] ImhyfiwYCHLCXQMZN7243-04-50 12:48:0087.1[facility] PsmtuwmNPRALKXKYT3530-62-35 12:48:00 Test Item Value Reference Range Interpretation Comments MCH (test code = MCH) 29.1 pg 27.0-31.0 [facility]xemnskBDMHQTYJCV5782-37-74 12:48:0033.4[facility]annHEMATOLOGY 2019-05-29 12:48:0016.6[facility] PjdcevhCJOWUJWCWA0113-77-16 12:48:90427Zvkskydd CpqcumxMZODJOJLEJ1179-64-57 12:48:007.9[facility] IudylxnBUVOOIMGKT1335-87-69 12:48:00 Test Item Value Reference Range Interpretation Comments PROTIME (test code = PROTIME) 15.7 s 12.0-14.7 [facility] FxjzfysOHBTERPDQN4632-37-91 12:48:00 Test Item Value Reference Range Interpretation Comments INR (test code = INR) 1.28 1 0.85-1.17 [facility] XnmnpwaOBISMIZDKM2003-11-55 12:48:00 Test Item Value Reference Range Interpretation Comments aPTT (test code = aPTT) 38.8 s 22.9-35.8 [facility] FxnslghGSNQTNZQHK1891-92-67 12:48:0073.8[facility]annHEMATOLOGY 2019-05-29 12:48:0010.3[facility] MluzbduOYKFLXUYYE9136-55-14 12:48:0011.3[facility] YxgvtqbLJNCPMSUJF7112-42-64 12:48:004.3[facility] KeqpvnhEIJQFGKVQN4947-57-93 12:48:000.3[facility] ZqoxtxyPCSEFSTPLH0953-12-21 12:48:006.4[facility] XJGJWXXZRE3693-80-94 12:48:000.9[facility] RlwwlwdKZINKSDFZM0412-48-58 12:48:001.0 [facility] JvgfltfNPNOYPFCYD8336-28-07 12:48:000.4[facility] HermannCHEM PANEL 2019-05-24 12:25:85893Cpuwnxba HermannCHEM VGKAT9705-78-54 12:25:0017[facility] HermannCHEM YSXSC9651-27-93 12:25:001.42[facility]annCHEM QKILN4861-85-47 12:25:51308Hjcqgzdl HermannCHEM LGFXO3607-09-59 12:25:005.0[facility] HermannCHEM IQLMV2466-16-70 12:25:0099[facility]annCHEM IDQYF2144-42-52 12:25:0024 [facility]annCHEM GJHXG9251-21-04 12:25:007.8[facility] HermannCHEM PANEL 2019-05-24 12:25:0011.0[facility] HermannCHEM AGAED8063-27-54 12:25:0056[facility] SobhyozVJISWZGAGK1077-48-38 12:25:0023.1[facility] XzxicdvZZFQWRHXNF7105-84-88 12:25:007.6[facility] KrceesrOZALNEZBOI3932-40-28 15:04:0011.7[facility] AHYKMDTERK7581-63-88 15:04:002.92[facility] KkzkujwIAJPKTZKBX7363-45-78 15:04:00 8.4[facility] AojhhkuEMIUVBULTL8505-09-10 15:04:0025.2[facility]annHEMATOLOGY 2019-05-23 15:04:0086.0[facility] KozgghyJYFJACCSLJ3728-10-85 15:04:00 Test Item Value Reference Range Interpretation Comments MCH (test code = MCH) 28.7 pg 27.0-31.0 [facility] SdfiycjTBKOEWXXMF5124-86-43 15:04:0033.3[facility]annHEMATOLOGY 2019-05-23 15:04:0016.2[facility] DjgmjkrDCJNAPVSZT1217-38-66 15:04:29604Gvvunkbp OmoumgxJAPQMMMCNO6793-42-20 15:04:008.0[facility] HermannBLOOD BANK RESULTS 2019-05-22 16:45:00Negative (05/22/19 11:45 AM)[facility]annCHEM PANEL 2019-05-22 16:45:39590Vcqkllag HermannCHEM CAAXG3812-17-09 16:45:0023[facility] HermannCHEM QQXZK0284-52-55 16:45:001.37[facility] HermannCHEM OWFSW6488-67-42 16:45:03036Ozbsewbi HermannCHEM WPCDX9710-69-17 16:45:005.3[facility] HermannCHEM JECCF2798-83-87 16:45:39747Zbgfyukq HermannCHEM ETASA6244-22-26 16:45:0025 [facility]annCHEM ZTYES1306-33-67 16:45:009.4[facility] HermannCHEM PANEL 2019-05-22 16:45:008.1[facility] HermannCHEM PJVYG4981-71-14 16:45:002.8[facility] HermannCHEM NYPGR9636-94-40 16:45:0039[facility] HermannCHEM CFZTI3863-15-10 16:45:0015Mem[facility] HermannCHEM ALWYM9794-12-22 16:45:36672Zmfvilpx HermannCHEM UMWYC1009-46-80 16:45:000.2[facility] HermannCHEM SMNNV9873-99-32 16:45:0014.3 [facility] HermannCHEM NUNEA5803-01-80 16:45:00 Test Item Value Reference Range Interpretation Comments B/C Ratio (test code = B/C Ratio) 17 1 6-25 [facility] HermannCHEM WBYPS8852-44-71 16:45:005.3[facility] HermannCHEM PANEL 2019-05-22 16:45:00 Test Item Value Reference Range Interpretation Comments A/G Ratio (test code = A/G Ratio) 0.5 1 0.7-1.6 [facility] HermannCHEM UXOTB2277-11-87 16:45:0059[facility]annHEMATOLOGY 2019-05-22 16:45:008.3[facility] UmtgbkeZWTIMKOHNZ1596-27-45 16:45:004.07[facility] NnqgipvXOSPIKYROO3243-82-61 16:45:0011.6[facility] MnnycuaZFVZSRWTTP0033-13-33 16:45:0035.0[facility] ZznjelnJDIDIYERFE3938-77-18 16:45:0085.9[facility] XVNIJEKCMK8699-96-88 16:45:00 Test Item Value Reference Range Interpretation Comments MCH (test code = MCH) 28.5 pg 27.0-31.0 [facility] QsddmauBQCRAYLYCR1507-68-62 16:45:0033.1[facility]annHEMATOLOGY 2019-05-22 16:45:0017.0[facility] KpylzdcEQQJSOHPBZ7918-48-48 16:45:23519Fgdusqmd OwgxclaRLNPWZPGZU0828-17-89 16:45:008.3[facility] EhbjmhaUKFYRQJIYG4389-55-53 16:45:0088[facility] LdqprmkJWPAYHVTYK2365-58-06 16:45:0066.7[facility] PQOETJQLMW5388-99-44 16:45:0015.4[facility] KdkrgvjSKEYGXUVFK2501-67-66 16:45:00 11.4[facility] VburlpmVZVLXGBGNB8274-98-97 16:45:005.9[facility]annHEMATOLOGY 2019-05-22 16:45:000.6[facility] PghogxgAPYLQHXGMU9609-43-41 16:45:005.6[facility] WtptavhRJGYASANCN4082-26-57 16:45:001.3[facility] DtwicqpPSTYCGZLXV8066-30-61 16:45:000.9[facility] ToyjhbvXAZJICEPAY1493-39-19 16:45:000.5[facility] FXSFKTRFDP0498-53-87 16:45:0034.0[facility][U] XRAY FEMUR 2 VWS RIGHT [id number] 07:57:00 Test Item Value Reference Range Interpretation Comments XR FEMUR 2 VWS EXAM: XR FEMUR 2 VWS RIGHT RIGHT (test code = DATE: 04/30/2019 8:45 AM CDT XR FEMUR 2 VWS INDICATION: 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 No complications. IMPRESSION:1. Unchanged appearance of the treated/healing pathologic fracture in the subtrochanteric region status post remaining. 04/30/2019 10:58 AM CDT [facility]uno Byrd [facility] PhysiciansPost Op Promis 29 Zqmkup7117-32-70 21:04:50 Test Item Value Reference Range Interpretation Comments Pain Interference: (test code = Pain 56 1 N Interference:) Pain Intensity: (test code = Pain 42.6 1 N Intensity:) Physical Function: (test code = 36 1 N Physical Function:) Satisfaction Role: (test code = 47.4 1 N Satisfaction Role:) [facility][U] XRAY FEMUR 2 VWS RIGHT [id number] 08:38:00 Test Item Value Reference Range Interpretation Comments XR FEMUR 2 VWS EXAM: XR FEMUR 2 VWS RIGHT RIGHT (test code DATE: 03/05/2019 9:28 AM CDT = XR FEMUR 2 VWS INDICATION: Pathological RIGHT) fracture of right femur in neoplastic disease with nonunionPost-op check COMPARISON: Right femur series 01/01/2019 TECHNIQUE: AP and lateral radiographs of the right femur DISCUSSION: Unchanged, satisfactory appearance of cephalomedullary nail extending at the subtrochanteric femur fracture. Slight progressive bony remodeling with less than 50% bridging bone formation. Thigh soft tissue swelling. Moderate arterial calcification IMPRESSION: Unchanged, satisfactory appearance of internally fixated pathologic subtrochanteric femur fracture. 03/05/2019 5:22 PM CDT Keny Meol [facility] QerduqnamwHEHZYBORHR3831-60-82 09:18:0033.2[facility] VJINWCORHF3109-25-45 09:18:008.0[facility] YgcgxolNTTTARPENG3598-20-80 09:18:12534 [facility] RhoiyupPCQWIKJXEU1080-27-46 09:18:0018.0[facility] HermannHEMATOLOGY 2019-01-03 09:18:008.7[facility] YmwvmhmUHCXRIORWZ7277-91-21 09:18:003.03[facility] RrafvdnXTDRUMVMFV9802-06-70 09:18:0026.2[facility] KmiveibHXNWQBGPUU0819-32-68 09:18:008.7[facility] KqlncvjTWGTVBKGND9116-99-46 09:18:00 Test Item Value Reference Range Interpretation Comments MCH (test code = MCH) 28.7 pg 27.0-31.0 [facility] ZmmpghcTHYTWBQFFF0392-81-81 09:18:0086.2[facility] HermannHEMATOLOGY 2019-01-03 09:18:009.1[facility] NdwxagbPGDKOXPOPX1481-71-96 09:18:004.2[facility] LppwkqaVPDQEGUFLG9667-74-90 09:18:0013.6[facility] RakawhhAIYGUXQRSR0116-18-05 09:18:0072.6[facility] AyaidkbBZWXHWXDGX0552-15-23 09:18:001.2[facility] QYWYXBZBBL7608-70-88 09:18:000.4[facility] QvlujbsGSOLBQMYWC3979-99-30 09:18:000.5 [facility] OooxhjrXKGTYNQJDB1173-82-33 09:18:000.8[facility]annHEMATOLOGY 2019-01-03 09:18:006.3[facility] OZSVGIH8481-48-21 16:31:00 Negative (01/02/19 11:31 AM)[facility] SczbeknQHHGXICAQO9854-99-48 16:31:0069.0 [facility] RegionalBanaqvcLAKMHCSJYI3204-27-31 16:12:00 Test Item Value Reference Range Interpretation Comments PROTIME (test code = PROTIME) 15.5 s 12.0-14.7 [facility] RegionalGxabugmOLKTNCAQFT1576-60-34 16:12:00 Test Item Value Reference Range Interpretation Comments aPTT (test code = aPTT) 35.9 s 22.9-35.8 [facility] RegionalJogxopjGKAXBIUMBH4235-13-76 16:12:00 Test Item Value Reference Range Interpretation Comments INR (test code = INR) 1.25 1 0.85-1.17 [facility][U] XRAY FEMUR 2 VWS RIGHT [id number] 16:32:00 Test Item Value Reference Range Interpretation Comments XR FEMUR 2 VWS EXAM: XR FEMUR 2 VWS RIGHT RIGHT (test code = DATE: 01/01/2019 4:50 PM CDT XR FEMUR 2 VWS INDICATION: 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 Postop check. COMPARISON: 11/06/2018 TECHNIQUE: AP and lateral radiographs of the right femur DISCUSSION: There is further progressive healing across the pathologic fracture in the proximal femoral shaft transfixed by intramedullary clarita. Alignment is adequate. No soft tissue abnormality is identified. IMPRESSION:1. Further healing changes across the pathologic fracture of the proximal femoral shaft with good alignment and fixed by intramedullary clarita. 01/02/2019 8:44 AM CDT [facility] PhysiciansCHEM TZJSQ7352-35-69 18:33:008.5[facility] CHEM IWBID5928-77-37 18:33:0058[facility] HermannCHEM JNYNX1812-28-21 18:33:94442 [facility]annCHEM EUTIL4530-65-19 18:33:51219Deooqujp HermannCHEM PANEL 2018-12-31 18:33:0010.0[facility] HermannCHEM POTFF9538-55-07 18:33:0029[facility] HermannCHEM UGZXG6395-87-08 18:33:005.0[facility] HermannCHEM CCJUG5021-84-59 18:33:34041Tilzbiah HermannCHEM ZHIRP1624-45-70 18:33:0032[facility] HermannCHEM HYGHB3567-41-63 18:33:001.38[facility] XxzwmxxMDWDFQGXRR0398-79-37 18:33:0018.2 [facility] XvusxxgKLTVQQJGEE3239-42-58 18:33:0032.2[facility]annHEMATOLOGY 2018-12-31 18:33:90303Ztutzrsp MpropviRVXBDLSMRI3572-11-93 18:33:007.7[facility] OghwcwgXGUQDHXVQH2422-77-84 18:33:009.6[facility] RwsqsnbIGATSDEXOI4004-48-55 18:33:0029.8[facility] HuytnktFKUITDNXOS3810-91-33 18:33:0086.1[facility] MHYPZAMZHE7301-04-93 18:33:00 Test Item Value Reference Range Interpretation Comments MCH (test code = MCH) 27.8 pg 27.0-31.0 [facility] BevnxrcOWZRVGOSUD0756-73-91 18:33:008.5[facility]annHEMATOLOGY 2018-12-31 18:33:003.46[facility] DauxjfvMRTEAZPDLE3892-33-42 18:33:000.1[facility] CplsmwaEIFLMLBPBT0688-14-18 18:33:004.2[facility] YalsipkGBUYUNJJWS5329-01-33 18:33:0011.2[facility] OcjfegyJWZCGITMTU9452-99-74 18:33:0010.6[facility] DJAJEADTPA3615-77-17 18:33:0073.3[facility] CqltyjnHEKFYKDVOZ8668-48-25 18:33:00 6.3[facility] VfphptwCFTNYFONOV4934-85-15 18:33:000.7[facility]annHEMATOLOGY 2018-12-31 18:33:001.0[facility] MidufowHXVWVITXYI2540-22-43 18:33:000.9[facility] YrsuieiMIQKUCCITJ3238-64-71 18:33:000.4[facility] MsukaedOFYRXH2313-73-74 18:33:00 Test Item Value Reference Range Interpretation Comments VLDL (test code = VLDL) 39 1 [facility] GahimdlZWVSPJ5729-88-99 18:33:98020Fkwnqojm BjpqnwtFQMUDE4665-92-08 18:33:55965Nybbgqgi CmyvnrrHQBBRP1556-88-21 18:33:0033[facility] HermannLIPIDS 2018-12-31 18:33:04774Rkqzqwnu VidykznTFTJJF6246-49-76 18:33:00 Test Item Value Reference Range Interpretation Comments CHD Risk (test code = CHD Risk) 5.42 1 4.00-7.30 [facility]UR[facility] DWAIZ7574-72-83 18:33:000.2[facility]annURINE AND LORNH1762-63-66 18:33:00Negative (12/31/18 1:33 PM)[facility]ann[facility] STOOL 2018-12-31 18:33:00Negative (12/31/18 1:33 PM)[facility]UR[facility] STOOL 2018-12-31 18:33:00 Test Item Value Reference Range Interpretation Comments UA pH (test code = UA pH) 7.0 1 5.0-8.0 [facility] APWAV5284-33-07 18:33:00Negative *NA*(12/31/18 1:33 PM) [facility] UHEET4545-56-11 18:33:00Negative *NA*(12/31/18 1:33 PM) [facility] HGAZG7709-81-76 18:33:00Negative (12/31/18 1:33 PM) [facility] JBYXO6652-51-95 18:33:00Negative (12/31/18 1:33 PM) [facility] UVGWI1941-08-49 18:33:00Yellow *NA*(12/31/18 1:33 PM) [facility] SDWHN4097-92-33 18:33:00Clear (12/31/18 1:33 PM)[facility] DAJFU3166-60-18 18:33:00 Test Item Value Reference Range Interpretation Comments UA Spec Grav (test code = UA Spec 1.020 1 Grav) [facility]annCHEM AUCOG3028-46-09 18:33:004.6[facility] HermannCHEM PANEL 2018-12-31 18:33:002.1[facility] HermannCHEM DCMHW8082-15-07 18:33:005.6[facility] HermannCHEM GCICZ7843-19-79 18:33:00 Test Item Value Reference Range Interpretation Comments A/G Ratio (test code = A/G Ratio) 0.5 1 0.7-1.6 [facility]annCHEM MHGIX8740-30-41 18:33:00 Test Item Value Reference Range Interpretation Comments B/C Ratio (test code = B/C Ratio) 23 1 6-25 [facility]annCHEM VEAWB5424-02-48 18:33:0015.0[facility] HermannCHEM PANEL 2018-12-31 18:33:0092[facility] HermannCHEM SAXWH6792-50-83 18:33:000.1[facility] HermannCHEM ANXKG6661-93-17 18:33:0051[facility] HermannCHEM GJWHS6411-34-23 18:33:002.9[facility] HermannCHEM HMYBB7422-80-83 18:33:0027[facility] XLTXJXYWBE4065-57-21 11:07:0026.0[facility] JvqolklDPGGZGNHKE4218-92-45 11:07:00 8.5[facility] UaixftnGEZRSISDSN1426-84-54 15:05:83802.0[facility] HermannCHEM PANEL 2018-12-20 12:54:0028[facility] HermannCHEM LAPBQ5556-38-95 12:54:00 Test Item Value Reference Range Interpretation Comments A/G Ratio (test code = A/G Ratio) 0.5 1 0.7-1.6 [facility]annCHEM LYBIJ7095-19-06 12:54:000.3[facility] HermannCHEM PANEL 2018-12-20 12:54:002.3[facility] HermannCHEM GNBXW3765-97-68 12:54:007.0[facility]annCHEM BSJSP9873-17-49 12:54:004.7[facility]annCHEM FSCBW8038-12-37 12:54:0088[facility] HermannCHEM FORPX6372-33-40 12:54:0014[facility] HermannCHEM VOJJF1415-86-01 12:54:000.2[facility] HermannCHEM OPGHE4234-58-71 12:54:000.1 [facility] BfcoouqEHVFUJXZSNWV9810-94-37 12:54:0011.5[facility] HermannELECTROLYTES 2018-12-20 12:54:0071[facility] WltlalqQSGPGAZRAKTF6041-09-76 12:54:29317Yggqsyat QoqwdqkBEAKBQVKLVHQ4246-44-15 12:54:0028[facility] VtckctkKVRWPWJCYWVD7729-20-70 12:54:008.5[facility] OouaicfYUUIKCSWCBDL3789-23-19 12:54:67537Evmsbedi Alexi PPTPULVJFZIF5270-43-51 12:54:004.5[facility] RpxulxcCUKSHFSLVSCL4335-07-71 12:54:71406Aoxmanbm EjyhwaxTJNTJNZGMOZR9664-48-47 12:54:001.18[facility] JLIBNXCLVKYU6069-84-25 12:54:0016[facility] RvhacmoZBSKSZKCUT3890-95-35 12:54:00 365[facility] NgbrvmgWRQNEPGDHB8760-74-61 12:54:008.3[facility]annHEMATOLOGY 2018-12-20 12:54:00 Test Item Value Reference Range Interpretation Comments MCH (test code = MCH) 28.9 pg 27.0-31.0 [facility] YnaiutcDYUVPRENZT7599-88-88 12:54:0032.9[facility]annHEMATOLOGY 2018-12-20 12:54:0025.5[facility] PqpqzbhMIACESKMGW5320-41-85 12:54:007.4[facility] ZancmdbDAYUHTWETR9104-60-67 12:54:0018.2[facility] GfuiflhCRWICAWROD1103-78-77 12:54:0087.7[facility] OlkzdecTIPSPQGLHA8782-61-88 12:54:008.4[facility] UYAXBOGUSL7327-18-15 12:54:002.91[facility] ZmvpkrmTDZIDNKJKB1775-71-67 12:54:00 0.6[facility] CtblufjFYVDLEIGKH1060 12:54:0066.7[facility]annHEMATOLOGY 2018-12-20 12:54:008.7[facility] CkrjxumNWCKZAZAVH4848-03-98 12:54:000.6[facility] YxfsvciJJFUPAGDKG3114-13-68 12:54:007.3[facility] VchdurjYUAHGHJIHN9146-03-54 12:54:0016.7[facility] RylagwzMOHPJIRVHW3207-34-82 12:54:001.4[facility] WNIEVBZSRS4055-32-44 12:54:000.7[facility] MjqvhkmZZWNWAWKTN7942-94-21 12:54:005.5 [facility] KciuohgODEVUQAJMB2653-26-31 19:55:0025.0[facility]annHEMATOLOGY 2018-12-18 19:55:008.7[facility] HermannCHEM RFAOY7954-78-44 21:45:0063[facility]annCHEM WQELF5863-57-26 21:45:004.7[facility]annCHEM YPLPP6297-21-97 21:45:27172Pqvwqiqv HermannCHEM OHOHW4876-96-88 21:45:24715Wrsdyjpj HermannCHEM KFQXE9591-14-64 21:45:0011.7[facility] HermannCHEM OKMGT9346-18-22 21:45:008.6 [facility]annCHEM CWDLY4012-42-69 21:45:0026[facility]annCHEM PANEL 2018-12-17 21:45:001.30[facility]annCHEM AWOVG3434-63-63 21:45:12520Xyecahql HermannCHEM PTCOQ8615-09-15 21:45:0022[facility] KniehusVFYPDVHVUY8904-13-40 21:45:009.1[facility] YyysclbKZUYZWNXIK3560-95-05 21:45:0014.7[facility] VAOLUYSPUT7781-04-45 21:45:000.7[facility] HwciarvWVEFCIOZSQ3985-60-64 21:45:001.5 [facility] SeulcdnEUKDOXCZUB3068-68-20 21:45:000.1[facility]annHEMATOLOGY 2018-12-17 21:45:007.1[facility] UyogtkkDROXJYFXFV7911-83-26 21:45:000.6[facility] RxhhrvfQOYQMKGOZY5723-85-71 21:45:000.9[facility] VcybpubWMFCWQMJAE5236-08-82 21:45:006.9[facility] KihtboeREYVMZIKPW8811-61-14 21:45:0068.5[facility] GUQSJBJENW5025-61-60 21:45:0087.8[facility] GnxmqrzSVHYHKGLJL0375-18-48 21:45:00 Test Item Value Reference Range Interpretation Comments MCH (test code = MCH) 29.2 pg 27.0-31.0 [facility] CosrxdfPTVAUTZOYJ5563-66-78 21:45:007.8[facility]annHEMATOLOGY 2018-12-17 21:45:00894Alczeaqy HidhjwbXKWDAGSYPR3835-59-80 21:45:0033.2[facility] RhttqghCZEOFXVQIQ3071-37-06 21:45:0018.2[facility] GgwilwiOCYDAZUGQT2812-79-96 21:45:003.22[facility] YajpipcKMNMIRCZHT0433-97-64 21:45:0010.1[facility] BLO[facility] B[facility] VKZUGCP1961-28-28 21:41:00Negative (12/17/18 4:41 PM)[facility] HXPCHFD8239-78-92 12:16:00Product available (12/17/18 7:16 AM)[facility] XxafuzyREMFDMZDYY7708-71-81 09:16:007.9[facility] CuabtsfNZGKUFIWDA6600-28-98 09:16:000.5[facility] JkkuakcASMYYJSTXY7322-71-94 09:16:005.8[facility] IHIUHNVHCU4698-50-31 09:16:000.8[facility] SupnpvnGPBMGITWAO4194-90-97 09:16:001.3 [facility] YxrvxabIUYUIQSIIO5792-70-75 09:16:000.7[facility]annHEMATOLOGY 2018-12-17 09:16:009.4[facility] KzrseefTPXVQDOWFX9879-79-69 09:16:0015.5[facility] HkrpqosEVVHURALEQ8219-97-87 09:16:0066.7[facility] EsevbjdZIVOZFZSCV9609-62-89 09:16:008.7[facility] ObcchdnXCDBBJIQCC4480-20-91 09:16:007.9[facility] PUKCAYTZZI5178-54-10 09:16:63713Kzwahzld RfhbuknZVSAECQDYD6748-78-67 09:16:00 89.4[facility] GvqihmxJUKULZEEYT3198-49-75 09:16:00 Test Item Value Reference Range Interpretation Comments MCH (test code = MCH) 30.2 pg 27.0-31.0 [facility] HomphfkSGOIXQXOVT6906-03-58 09:16:0033.8[facility]annHEMATOLOGY 2018-12-17 09:16:0017.0[facility] RbqrwjqZWXJKIKFHI4898-46-02 09:16:002.31[facility]annBL[facility]OD BANK IICCLKE6904-91-12 14:15:04Product available (12/16/18 9:15 AM) [facility] IGQFIVO1787-72-66 12:21:14Product available (12/15/18 7:21 AM)[facility] JkmuwhwQIPOAMGIVEHC7026-14-99 11:35:0014.7[facility] XGNLLIBUVNQD9913-14-87 11:35:0063[facility] RvpuegtMZHMZTPCQHIT9290-09-39 11:35:00 4.7[facility] PqazlucXIVTRUFGEOUL1658-21-06 11:35:0024[facility] HermannELECTROLYTES 2018-12-15 11:35:86170Dsvofiiz LrtcdpfMAYDCMEXSNWJ8640-72-52 11:35:56648Sybzewzr RdobuxvVCMUABWQCSBR7843-42-98 11:35:001.30[facility] HermannELECTROLYTES 2018-12-15 11:35:0024[facility] RjixzdiQKNPJFIEBQDL1019-58-90 11:35:31121Omsccgbc CilfhnkIFGQHLCJDBFB8964-46-17 11:35:007.7[facility] HermannBLOOD BANK RESULTS 2018-12-14 12:52:00Negative (12/14/18 7:52 AM)[facility] HermannHEMATOLOGY 2018-12-14 11:30:000.1[facility] CljmttiPBYKUAOZWI4798-10-83 03:08:00 Test Item Value Reference Range Interpretation Comments Luis MATIASD (test code = Luis Wilder 2200 1 TND) [facility] EpkxcnwLMTKNRGDDU1532-57-59 03:08:0019.4[facility] HermannSPECIAL OCNNBILYA5513-43-23 10:05:006.5[facility] QgyhtrmXQBMTZWOKH8571-90-24 23:02:0055 [facility] LohofzxKBQNPHRDNB6819-92-21 23:02:0010.7[facility] CEFTAZIDIME:SUSC:PT:ISOLATE:ORDQN:OQR7978-07-25 19:25:00Enterobacter cloacae [facility] HermannCHEM YOWZO7486-39-59 16:03:0011[facility] HermannCHEM PANEL 2018-12-12 16:03:33426Huxilqqy HermannCHEM SMSFG7243-57-61 16:03:000.3[facility] HermannCHEM OZLZK7359-68-77 16:03:003.2[facility] HermannCHEM CVFWH0781-45-95 16:03:0030[facility] HermannCHEM FYDJB4889-10-92 16:03:007.7[facility] HermannCHEM JUESD0596-52-09 16:03:00 Test Item Value Reference Range Interpretation Comments A/G Ratio (test code = A/G Ratio) 0.7 1 0.7-1.6 [facility] FQWKG1249-91-28 16:03:00 Test Item Value Reference Range Interpretation Comments B/C Ratio (test code = B/C Ratio) 27 1 6-25 [facility] GXPSI8140-61-07 16:03:004.5[facility]HE[facility]OLOGY 2018-12-12 16:03:000.1[facility] KwmydtnGDCGMUAIOZ1123-06-74 16:03:00 Test Item Value Reference Range Interpretation Comments aPTT (test code = aPTT) 31.0 s 22.9-35.8 [facility] AllianceFrotqhwDSJQIXPLNK8821-13-64 16:03:00 Test Item Value Reference Range Interpretation Comments INR (test code = INR) 1.14 1 0.85-1.17 [facility] AllianceBpelrzvMLWODYUIDV2355-60-87 16:03:00 Test Item Value Reference Range Interpretation Comments PROTIME (test code = PROTIME) 14.4 s 12.0-14.7 [facility]] CBC (INCLUDES DIFF/PLT)2018-12-04 10:39:01 Test Item Value Reference Range Interpretation Comments WBC (test code = 6690-2) 6.1 {K/CMM} 3.7-10.4 RBC; Below Low Threshold (test 3.58 {M/CMM} 4.70-6.10 code = 789-8) Hgb; Below Low Threshold (test 11.1 g/dl 14.0-18.0 code = 718-7) Hct; Below Low Threshold (test 34.7 % 42.0-54.0 code = 31826-7) MCV; Above High Threshold (test 97.0 fL 80.0-94.0 code = 787-2) MCH (test code = 785-6) 31.0 pg 27.0-31.0 MCHC; Below Low Threshold (test 31.9 g/dl 32.0-36.0 code = 786-4) RDW; Above High Threshold (test 15.6 % 11.5-14.5 code = 788-0) Platelet (test code = 32384-9) 382 {K/CMM} 133-450 Mean Platelet Volume (test code 8.2 fL 7.4-10.4 = 15812-5) [facility]] Mgqkptvsgisk1783-36-36 10:39:01 Test Item Value Reference Range Interpretation Comments Segmented Neutrophils (test code 60.0 % 45.0-75.0 = 27387-7) Monocytes (test code = 52810-3) 11.7 % 2.0-12.0 Lymphocytes; Below Low Threshold 18.4 % 20.0-40.0 (test code = 18302-9) Eosinophils; Above High Threshold 8.7 % 0.0-4.0 (test code = 57284-1) Basophils; Above High Threshold 1.2 % 0.0-1.0 (test code = 706-2) Segs-Bands # (test code = 3.7 {K/CMM} 1.5-8.1 60685-2) Lymphocytes # (test code = 1.1 {K/CMM} 1.0-5.5 77593-3) Monocytes # (test code = 62754-0) 0.7 {K/CMM} 0.0-0.8 Eosinophils # (test code = 0.5 {K/CMM} 0.0-0.5 03565-0) Basophils # (test code = 10273-0) 0.1 {K/CMM} 0.0-0.2 [facility][H] CRP, hs, Cardiac Camd1434-14-74 10:39:01 Test Item Value Reference Range Interpretation Comments C-Reactive Protein High 18.5 mg/L Low Risk: Sensitivity (test code = < 1.0 mg/LAverage 08626-3) Risk: 1.0 - 3.0 mg/LHigh Risk: >3.0 mg/LInflammatio n: >10.0 mg/L [facility][QL] SED RATE BY MODIFIED BOYFLABEJX3454-91-23 10:39:01 Test Item Value Reference Range Interpretation Comments Sedimentation Rate; Above High 70 {mm/hr} 0-15 Threshold (test code = 25865-3) [facility][U] XRAY FEMUR 2 VWS RIGHT [id number] 07:49:00 Test Item Value Reference Range Interpretation Comments XR FEMUR 2 VWS EXAM: XR FEMUR 2 VWS RIGHT RIGHT (test code = DATE: 12/04/2018 9:59 AM CDT XR FEMUR 2 VWS INDICATION: Metastatic RIGHT) renal cell carcinoma to bone 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 No significant change in surrounding callus formation. There is no perihardware lucency or evidence of failure.No new lytic lesion or fracture is identified.Prior vacant screw tracks in the distal femoral metadiaphysis.Disuse osteopenia is noted.No soft tissue abnormality. IMPRESSION:Maintained alignment of healing pathologic proximal right femoral diaphyseal fracture without hardware complications. 12/04/2018 2:48 PM CDT Brea Kidd [facility] PhysiciansPost Op Promis 29 Uuzfxa4492-09-66 07:09:41 Test Item Value Reference Range Interpretation Comments Pain Interference: (test code = Pain 57.3 1 N Interference:) Pain Intensity: (test code = Pain 43.8 1 N Intensity:) Physical Function: (test code = 34.6 1 N Physical Function:) Satisfaction Role: (test code = 45.8 1 N Satisfaction Role:) [facility][U] XRAY FEMUR 2 VWS RIGHT [id number] 07:29:00 Test Item Value Reference Range Interpretation Comments XR FEMUR 2 VWS EXAM: XR FEMUR 2 VWS RIGHT RIGHT (test code = DATE: 11/06/2018 10:24 AM XR FEMUR 2 VWS CDT INDICATION: Metastatic RIGHT) renal cell carcinoma to bone Pathologic fracture of right femur in neoplastic disease with nonunion Post-op check COMPARISON: X-rays of the right femur 04/30/2018, 06/28/2018, 09/25/2018. TECHNIQUE: AP and lateral radiographs of the right femur DISCUSSION:Pathologic fracture of the subtrochanteric femur demonstrates improved alignment following revision of the intramedullary clarita and augmentation of the femoral bone defect.Mild bridging callus formation is present. Fracture lines are still visible.Postsurgical soft tissue changes of the right leg. IMPRESSION: 1. Pathologic fracture of the subtrochanteric right femur demonstrates improved alignment following revision of the intramedullary clarita and augmentation of the femoral bone defect.2. Mild bridging callus formation is present. 11/06/2018 5:47 PM CDT Eusebio Galindo [facility] PhysiciansANEMIA VJWDX4004-32-85 16:58:0015.5[facility] HermannANEMIA NGTZN5559-52-31 16:58:12297Jnrvflqg HlvimzoXVZGWLIDVTZI0660-24-32 16:58:0014.5[facility] RwhstvlVYZUOGNIETXB9838-25-43 16:58:0068[facility] SRLDMEKMGWTX7944-81-99 16:58:0019[facility] RacjzxjKADUUSANSULK4938-29-67 16:58:00 238[facility] UikembxAXHKOAERDIKT4900-07-95 16:58:0096[facility] HermannELECTROLYTES 2018-10-25 16:58:0027[facility] KosrgvlVWRSDGFBGWBS7360-68-69 16:58:004.5[facility] FklzzebZJYMPXEILBZO2978-46-20 16:58:26146Bimcwfus AlquqbdEHMOUMITOOKQ2275-65-72 16:58:001.22[facility] WmxplfdZDTXTFRYYHMC6413-31-49 16:58:008.2[facility] LPRAOYSKHU9019-16-78 16:58:000.5[facility] EuofbkyACBJEGNSIF5106-10-32 16:58:001.1 [facility] FeczqivBWNKYQNPWQ0685-35-99 16:58:000.3[facility] HermannHEMATOLOGY 2018-10-25 16:58:000.3[facility] HpurixxMXKODYXAFE6615-50-10 16:58:007.5[facility] RqmxhrbLMEGYYKYKI2682-28-16 16:58:0082.0[facility] QjhlxuxYQQGUZQOIU8022-23-63 16:58:0012.2[facility] JipkgbyCGQPEJWUZY8788-73-70 16:58:005.2[facility] VEBLCKJZMI2004-86-20 16:58:003.41[facility] ObmbyhkJIQPRWDDLH0076-20-93 16:58:00 11.4[facility] EctqojoZMLFGHDIUS8790-51-17 16:58:009.1[facility] HermannHEMATOLOGY 2018-10-25 16:58:0034.2[facility] YbqfbviPWORWKCEWJ0083-74-09 16:58:14775.3 [facility] UenvxiqKJWBBBLNDV1888-04-84 16:58:00 Test Item Value Reference Range Interpretation Comments MCH (test code = MCH) 33.4 pg 27.0-31.0 [facility] MfbvjnvXXLFDEOLVI6832-70-34 16:58:0033.3[facility] HermannHEMATOLOGY 2018-10-25 16:58:0014.8[facility] BawqyvwHGJWXXFYDF7650-93-53 16:58:23495Zjddoabf QzwgtknUFNABWWLKB6228-89-37 16:58:009.6[facility] HermannBLOOD BANK RESULTS 2018-10-24 17:48:00Negative (10/24/18 11:48 AM)[facility] HermannCHEM PANEL 2018-10-15 20:36:0063[facility] HermannCHEM AIMFZ6074-82-55 20:36:009.0[facility] HermannCHEM YOMNJ8124-30-71 20:36:0025[facility] HermannCHEM BNSPU8987-01-43 20:36:0087[facility] HermannCHEM OSFXA2435-06-32 20:36:000.2[facility] HermannCHEM TIHQI9873-53-53 20:36:0015[facility] HermannCHEM DMTMR9022-13-67 20:36:0034 [facility] HermannCHEM QEWIU0840-14-34 20:36:003.1[facility] HermannCHEM PANEL 2018-10-15 20:36:007.0[facility] HermannCHEM FTMHU0425-07-36 20:36:0032[facility] HermannCHEM FQJWT6570-45-80 20:36:001.30[facility] HermannCHEM KVRTD0659-41-28 20:36:44026Ozytyzkr HermannCHEM IVAZR4111-10-11 20:36:06793Sthareql HermannCHEM IOQDL2095-55-41 20:36:73559Jacmapoa HermannCHEM HNHWR3883-47-43 20:36:004.9 [facility]annCHEM VARON5626-52-86 20:36:00 Test Item Value Reference Range Interpretation Comments A/G Ratio (test code = A/G Ratio) 0.8 1 0.7-1.6 [facility]annCHEM HIVWY8938-09-60 20:36:003.9[facility] HermannCHEM PANEL 2018-10-15 20:36:00 Test Item Value Reference Range Interpretation Comments B/C Ratio (test code = B/C Ratio) 25 1 6-25 [facility] HermannCHEM VVKJO6594-19-34 20:36:0016.9[facility] HermannHEMATOLOGY 2018-10-15 20:36:003.0[facility] UkrxtgpJMXSYZZFAC7309-85-69 20:36:001.0[facility] FxlcuxdLJBKHGUTCZ7079-73-10 20:36:0019.3[facility] SubaxeyMHRUPUCBZY4675-66-52 20:36:0060.2[facility] PdmjnooRHNMLSQTQW5965-66-23 20:36:006.4[facility] IUNUAYPXHK4603-84-04 20:36:000.6[facility] CqethvdNGAOVQASHH8914-64-88 20:36:000.3 [facility] UysztogSRQPSJIZCY3821-06-75 20:36:000.7[facility] HermannHEMATOLOGY 2018-10-15 20:36:0013.5[facility] RfnppqvYYSYMURPJV1949-37-83 20:36:58596Cikatdct WqfoxqwTLBUIDXBON3329-41-40 20:36:0015.8[facility] YnknxdtWUGUSIPURX7979-03-19 20:36:0032.9[facility] MggfzkuAVZFBTGGNX7487-15-12 20:36:00 Test Item Value Reference Range Interpretation Comments MCH (test code = MCH) 33.3 pg 27.0-31.0 [facility] WjjaoxbTNFIPXKJYA0402-81-13 20:36:009.3[facility] HermannHEMATOLOGY 2018-10-15 20:36:003.81[facility] EvxesgoBCGBISURLC6527-21-53 20:36:004.9[facility] IgqncfnGBURZOYDEK7001-30-48 20:36:29017.3[facility] EthedloIIDWYURGKS1083-75-15 20:36:0012.7[facility] HldpvaiCPFNHLGXOM8424-53-15 20:36:0038.7[facility] SPECIAL AVEAHMAQS7676-65-81 20:36:006.4[facility][U] XRAY FEMUR 2 VWS RIGHT [id number] 08:49:00 Test Item Value Reference Range Interpretation Comments XR FEMUR 2 VWS EXAM: XR FEMUR 2 VWS RIGHT RIGHT (test code DATE: 09/25/2018 10:22 AM SALOONKEEPER = XR FEMUR 2 VWS INDICATION: 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 Pathological fracture of right femur COMPARISON: Right femur series 06/28/2018 TECHNIQUE: AP and lateral radiographs of the right femur DISCUSSION: Unchanged alignment of the subtrochanteric femur pathologic fracture with cephalomedullary nail fixation. No hardware complication identified. Unchanged mild varus attenuation across the fracture. Early fracture remodeling and mild calcification. IMPRESSION: Unchanged alignment with mild remodeling of pathologic subtrochanteric femur fracture. 09/25/2018 1:18 PM SALOONKEEPER Keny Melo [facility] PhysiciansCHEM JEPZJ0143-11-66 19:40:007.3[facility] CHEM DVEPL6214-29-56 19:40:61084Ctfocwwi HermannCHEM NRQIZ4565-32-86 19:40:003.5 [facility] HermannCHEM ZDRAT4289-62-09 19:40:001.6[facility] HermannCHEM PANEL 2018-09-23 19:40:003.1[facility] HermannCHEM VLNLP9169-51-96 19:40:05468Xzfgwyho HermannCHEM IZSIN3229-22-69 19:40:0027[facility] HermannCHEM GWCDW5263-98-32 19:40:000.2[facility] HermannCHEM RPJUD7517-63-69 19:40:007.5[facility] HermannCHEM HFZGT4358-07-66 19:40:0056[facility] HermannCHEM WKUMB4761-22-86 19:40:0065 [facility] HermannCHEM MOXEN4169-97-74 19:40:009.0[facility] HermannCHEM PANEL 2018-09-23 19:40:001.27[facility] HermannCHEM MUZZJ2116-95-49 19:40:0025[facility] HermannCHEM EVXVY2152-14-68 19:40:97144Alhxwtfy HermannCHEM LLWBM7051-69-23 19:40:0028[facility] HermannCHEM EZYNC9254-09-25 19:40:68088Baqreeqb HermannCHEM KZTJQ4853-39-40 19:40:71731Hyofwoea HermannCHEM CRVWA4455-02-20 19:40:004.1 [facility] HermannCHEM ROMRN5177-01-70 19:40:00 Test Item Value Reference Range Interpretation Comments A/G Ratio (test code = A/G Ratio) 0.7 1 0.7-1.6 [facility] HermannCHEM UYSDO7491-15-55 19:40:004.4[facility] HermannCHEM PANEL 2018-09-23 19:40:00 Test Item Value Reference Range Interpretation Comments B/C Ratio (test code = B/C Ratio) 20 1 6-25 [facility] HermannCHEM XPDNM2590-50-55 19:40:0013.1[facility] HermannCHEM PANEL 2018-09-23 19:40:55785Asgmhqbn HermannCHEM WVMIS8067-02-53 19:40:0015[facility] HermannCHEM ECULN2491-76-33 19:40:0085[facility] HermannCHEM ESSDH2833-01-09 19:40:000[facility] JugpsbgVIQXKBECKZ0780-17-74 19:40:002.3[facility] UOSXRULZRG8139-49-10 19:40:0010.3[facility] XezgfoeLADDCMVQSG9051-58-88 19:40:00 0.4[facility] ZkdijisRSUDSSESXR5479-91-77 19:40:001.0[facility] HermannHEMATOLOGY 2018-09-23 19:40:000.4[facility] NalliitYWUBOWRARJ4114-17-01 19:40:000.7[facility] HnxetifMMIGBESYRT0281-34-45 19:40:0023.1[facility] HafpxsnOSRXBLUIEZ8825-45-52 19:40:0010.7[facility] HcfaqspPVGAOMFSVX5570-90-34 19:40:0055.2[facility] DHAMJUQLTH7599-43-86 19:40:0050[facility] SzqrunbBUAFKHINMB9980-58-78 19:40:009.0 [facility] AddgpshVEVHHOKAQU2672-82-85 19:40:0099.4[facility] HermannHEMATOLOGY 2018-09-23 19:40:0041.6[facility] XalwrjtTSMIXSSTBX7445-22-34 19:40:0015.5[facility] PqrhlyhTFGHEAGRXA0326-53-31 19:40:39791Hszweboc UewqlwaIXZCKVKEUO0227-38-68 19:40:00 Test Item Value Reference Range Interpretation Comments MCH (test code = MCH) 32.9 pg 27.0-31.0 [facility] BuykzvuMHEMFVIDYT8959-34-98 19:40:0033.1[facility] HermannHEMATOLOGY 2018-09-23 19:40:004.2[facility] BltfoxdVYAZZJSUGN9178-80-96 19:40:0013.8[facility] BjbggtaGCOJVYLQWX1346-88-94 19:40:004.19[facility] BkbavniBKWZIIHOFK4432-56-54 19:40:007[facility] XafygcsMKCCCOOXUQ3732-32-66 19:40:0027[facility] TXJUGAVBHL1595-82-76 19:40:005.9[facility] IqshnyxVUQPFZBOHP8499-51-70 19:40:007.1 [facility] PzuwpcwPTHNWERVLB9487-75-51 19:40:57073Gfxvosav HermannIMMUNOLOGY 2018-09-23 19:40:001.4[facility] HermannLD-1 XRTNYMAWDT9811-19-02 19:40:0013 [facility] HermannLD-1 QIKEABSXEH2065-14-69 19:40:0012Mem[facility] HermannLD-1 FECWGBADZU4343-03-28 19:40:0034Mem[facility] HermannLD-1 LCJNVSICFX3357-27-87 19:40:0026[facility] HermannLD-1 HGVGSRWPIY6822-82-95 19:40:0015[facility] LD-1 CPDHTKROJM8017-65-24 19:40:19011Kagumfyq FkgqfeyDTRLGY5105-77-73 19:40:00 Test Item Value Reference Range Interpretation Comments CHD Risk (test code = CHD Risk) 5.10 1 4.00-7.30 [facility] ChbzwbtYJWVTP0737-45-55 19:40:00 Test Item Value Reference Range Interpretation Comments VLDL (test code = VLDL) 31 1 [facility] WmkkokcPTCZZO6192-58-68 19:40:0092[facility] BkurgxeXXQJKY9551-49-66 19:40:20648Iaoldivx CfdhcldCIRUMC4334-26-28 19:40:83329Ofkocwjh HermannLIPIDS 2018-09-23 19:40:0030[facility] HermannURINE AND EITTK0653-06-90 19:40:00 >=1.030 *ABN*(09/23/18 1:40 PM)[facility]annUR[facility] AND BJUBH1874-71-09 19:40:00Clear (09/23/18 1:40 PM)[facility]annURINE AND EVFII2274-15-76 19:40:00Yellow *NA*(09/23/18 1:40 PM)[facility]UR[facility] AND AIFBZ6593-91-53 19:40:00Negative (09/23/18 1:40 PM)[facility]UR[facility] AND OAJGS9682-31-54 19:40:00Negative *NA*(09/23/18 1:40 PM)[facility]UR[facility] AND IKLUP6421-11-01 19:40:00Negative *NA*(09/23/18 1:40 PM)[facility]UR[facility] AND GCSSE1014-98-12 19:40:00Negative (09/23/18 1:40 PM)[facility]UR[facility] AND MKKDN7236-20-98 19:40:00Negative (09/23/18 1:40 PM)[facility]UR[facility] AND ZLUWP0136-93-17 19:40:000.2[facility]annURINE AND JFEJJ9827-22-35 19:40:00 Test Item Value Reference Range Interpretation Comments UA pH (test code = UA pH) 6.0 1 5.0-8.0 [facility]annUR[facility] AND TRTLV4610-92-30 19:40:00Negative (09/23/18 1:40 PM) [facility] HermannCT Femur w and wo contrast [id number] 13:08:00 Test Item Value Reference Range Interpretation Comments Femur w and wo contrast Cancel Reason: Exam CT (test code = Femur w Replaced and wo contrast CT) [facility] Femur with contrast [id number] 13:08:00 EXAM: CT RIGHT FEMUR WITH CONTRASTDATE: 09/13/2018 1:08 PM CSTINDICATION: - M84.551D Pathological fracture in neoplastic disease, rightfemur, subsequent encounter for fracture with routine healing; C79.51 Secondary malignant neoplasm of boneADDITIONAL INFORMATION: Metastatic renal cell carcinoma to boneCOMPARISON: CT 06/22/2018.TECHNIQUE: Volumetric CT of the right femur is acquired with contrast.Axial,coronal and sagittal images are provided.IV contrast: 100 mL of Visipaque 320DLP: 580 mGy-cm.,For femur, chest, abdomen and pelvis CTsCT imaging performed at this location utilizes radiation dose optimizationtechniques which include one or more of the following:-Automated exposure control-Adjustment of the mA and/or kV according to patient size-Use of iterative reconstruction techniqueFINDINGS:Bones: An osteolytic lesion is again identified in the right proximal femoraldiaphysis status post curettage and grafting, and placement of intramedullarynail. Small areas of osteolysis along the periphery of the lesion are unchangedfrom the prior examination. Small areas of surrounding dystrophiccalcifications are present, however without bridging callus formation present.No significant incorporation of bone graft material. Slight varus angulationacross the fracture site is unchanged.Soft tissues: The extraosseous soft tissue component of the mass measuresapproximately 1.2 x 4.1 cm, stable compared to the previous exam given changesin technique. No new or enlarging mass lesion is identified. Subcutaneous softtissue stranding/swelling along the lateral aspect of the thigh is overallsimilar in appearance. 11 mm right inguinal lymph node on series 2, image 169is seen, stable, and contains a fatty hilus. No new lymphadenopathy in theinguinal region, visualized pelvis, or within the femur. Vascularcalcifications are noted.IMPRESSION:Stable exam.--Read by: Alphonse Mckeeictated Date/time:09/15/18 10:17Electronically Signed by: Alphonse Mckee MD 09/15/1909:31FINAL REPORTUnMc[facility] AND BUYIT7997-36-45 20:30:00Negative (07/23/18 2:30 PM)[facility]UR[facility] AND ATQAO1555-85-68 20:30:00None Seen (07/23/18 2:30 PM)[facility]UR[facility] AND EVNEQ5112-66-00 20:30:00None Seen (07/23/18 2:30 PM)[facility] AND IQATI0596-22-45 20:30:000.2[facility]annUR[facility] AND VFJYJ5487-04-31 20:30:00Negative (07/23/18 2:30 PM)[facility] AND PFUVD5193-49-28 20:30:00Negative (07/23/18 2:30 PM)[facility]UR[facility] AND FJSRA8538-67-26 20:30:00Negative *NA*(07/23/18 2:30 PM)[facility]UR[facility] AND STFMX1748-56-81 20:30:00Negative *NA*(07/23/18 2:30 PM)[facility] AND YCMEV1115-89-25 20:30:00Negative (07/23/18 2:30 PM)[facility]UR[facility] AND ESNCJ5160-13-50 20:30:00Yellow *NA*(07/23/18 2:30 PM)[facility]UR[facility] AND DAFWI1424-77-51 20:30:00Clear (07/23/18 2:30 PM)[facility]annUR[facility] AND IHUQR8464-78-72 20:30:00>=1.030 *ABN*(07/23/18 2:30 PM)[facility]annUR[facility] AND KDNDF5185-50-43 20:30:00 Test Item Value Reference Range Interpretation Comments UA pH (test code = UA pH) 6.0 1 5.0-8.0 [facility]annCHEM UZWPA9938-07-42 20:28:0076[facility] HermannCHEM PANEL 2018-07-23 20:28:0024[facility] HermannCHEM EULXC9109-39-37 20:28:28486Xvpzkwox HermannCHEM UGYMO5700-61-59 20:28:000[facility] HermannCHEM QYUNO3002-14-84 20:28:44057Vbnorbug HermannCHEM YNHRA8201-78-64 20:28:002.9[facility] HermannCHEM NRKUX5401-01-19 20:28:006.3[facility] HermannCHEM DHVBV9140-57-09 20:28:001.4 [facility]annCHEM EFFYM2052-21-32 20:28:00 Test Item Value Reference Range Interpretation Comments A/G Ratio (test code = A/G Ratio) 0.7 1 0.7-1.6 [facility]annCHEM CJEVG5859-51-77 20:28:004.3[facility] HermannCHEM PANEL 2018-07-23 20:28:0014.1[facility] HermannCHEM FYASB8235-35-19 20:28:00 Test Item Value Reference Range Interpretation Comments B/C Ratio (test code = B/C Ratio) 16 1 6-25 [facility] HermannCHEM DNGUR3285-63-28 20:28:0076[facility] HermannCHEM PANEL 2018-07-23 20:28:06381Sqyapyga HermannCHEM YVVXS3587-01-30 20:28:0018[facility] HermannCHEM ERYYJ1202-42-51 20:28:001.12[facility] HermannCHEM MEXTO7249-77-18 20:28:01353Znenxqwx HermannCHEM WCQYS6914-74-69 20:28:008.1[facility] HermannCHEM YQGNJ3667-30-97 20:28:17852Adyyoyel HermannCHEM FBAIF0642-72-17 20:28:004.1 [facility] HermannCHEM OHNVV3622-36-00 20:28:0024[facility] HermannCHEM PANEL 2018-07-23 20:28:007.1[facility] HermannCHEM RQCIE0897-90-34 20:28:46919Nxhcnxvn HermannCHEM MPIHI1745-76-28 20:28:000.1[facility] HermannCHEM RHKZL2266-52-22 20:28:0073[facility] HermannCHEM JUYVW7525-04-56 20:28:0037[facility] HermannCHEM HGWQL4244-21-06 20:28:002.8[facility] MrbhsdxNVMOBMECFF3134-55-75 20:28:0010.0 [facility] KpuqmpuCPJVBWQFTU9924-08-95 20:28:0011.9[facility]annHEMATOLOGY 2018-07-23 20:28:000.7[facility] IpceggqWGSOUKNRMG2617-67-14 20:28:0024.5[facility] GmnbhfvZGHKRJSJUE6704-20-44 20:28:0052.9[facility] YxdsnzvHEIGBJUHSE6087-16-56 20:28:000.4[facility] ZhzikpmMKZKBAVLYJ6181-60-90 20:28:000.5[facility] WFXQVYWLVU9676-37-82 20:28:002.4[facility] MjhkyerXYUFTNYZRF5449-73-68 20:28:001.1 [facility] SomtmjxKTMUMCCLNR2022-36-54 20:28:0022[facility]annHEMATOLOGY 2018-07-23 20:28:0013.9[facility] ShajgymRMWEZRZHBP6508-99-15 20:28:004.18[facility] WmmmfxlEJXKEECQWG1409-39-91 20:28:004.5[facility] FgvvuifRIZHSNIZGC5542-24-91 20:28:009.4[facility] TjfkalpKLEAXRXHLX8370-15-10 20:28:0033.3[facility] YIATRWKYBU2511-22-98 20:28:00 Test Item Value Reference Range Interpretation Comments MCH (test code = MCH) 33.3 pg 27.0-31.0 [facility] KkoumrfNGEHFWYBFK9828-11-48 20:28:0014.5[facility]annHEMATOLOGY 2018-07-23 20:28:21642Fbwxtlqz BhoqsflMXAVQGPWUI0992-06-08 20:28:0099.9[facility] ZbjkjwlBCUUKWWTMM6998-03-98 20:28:0041.7[facility] RzhjgcuXOZGIEVUPJ5538-57-37 20:28:83742Vlgueiyf DjdbykgEGNOOPTHED9289-41-06 20:28:001.5[facility] KKLYCYAFXE6194-72-51 20:28:00<5[facility] JsbbmidMJXOEHVGHW3371-21-95 20:28:00 27[facility] CxohiufADQIZNHFID2415-10-39 20:28:006.1[facility] HermannIMMUNOLOGY 2018-07-23 20:28:0015.9[facility] FahwnvqPAFBCG6309-87-59 20:28:00 Test Item Value Reference Range Interpretation Comments VLDL (test code = VLDL) 44 1 [facility] IefpakuEEDBOK7621-91-22 20:28:72091Mvflkxvs OtxlkdeLKVYWK7083-76-26 20:28:0029[facility] FnchangPHSBHO6130-56-50 20:28:70064Fulwxaon HermannLIPIDS 2018-07-23 20:28:35157Wxfgieoi DmjynpvJSGAOE5469-59-48 20:28:00 Test Item Value Reference Range Interpretation Comments CHD Risk (test code = CHD Risk) 6.55 1 4.00-7.30 Eliud Truong[U] XRAY FEMUR 2 VWS RIGHT [id number] 09:27:00 Test Item Value Reference Range Interpretation Comments XR FEMUR 2 VWS EXAM: XR FEMUR 2 VWS RIGHT RIGHT (test code = DATE: 06/28/2018 10:32 AM XR FEMUR 2 VWS CDT INDICATION: Metastatic RIGHT) renal cell carcinoma to bone; Pathological fracture of right femur due to neoplastic disease with routine healing, subsequent encounter COMPARISON: Right femur series 05/10/2018 TECHNIQUE: AP and lateral radiographs of the right femur DISCUSSION: Unchanged alignment of the pathologic subtrochanteric femur fracture fixated with cephalomegaly nail. Persistent mild varus angulation across the fracture. There has been slight progressive bony remodeling and minimal progressive callus formation with mild bridging callus along the anterior cortex of the fracture. IMPRESSION:1. Unchanged alignment with mild progressive healing of pathologic subtrochanteric femur fracture. Minimal bridging bone formation.2. No hardware complication identified. 06/29/2018 8:26 AM CDT [facility]iciansCHE[facility] SOLXY1137-48-22 19:05:002.7[facility] CHEM ZVNXC0649-04-56 19:05:001.6[facility] HermannCHEM TOSHE9800-65-07 19:05:006.6 [facility]annCHEM APVSQ8991-75-82 19:05:93002Jneqfzuk HermannCHEM PANEL 2018-06-25 19:05:0075[facility]annCHEM PQWUZ9920-06-47 19:05:0027[facility]annCHEM RDAWG0409-21-11 19:05:58059Ybspttya HermannCHEM SIRKL6195-83-92 19:05:007.9[facility]annCHEM OGFVN2499-51-72 19:05:004.0[facility]annCHEM HRYUK3254-39-41 19:05:001.13[facility] HermannCHEM QLOLE9998-77-57 19:05:69625 [facility]annCHEM HPCNA4128-60-36 19:05:46649Kppzfgti HermannCHEM PANEL 2018-06-25 19:05:0019[facility]annCHEM OQSPF5791-95-58 19:05:000.1[facility] HermannCHEM FLCTC2148-53-45 19:05:00236Pjliflwm HermannCHEM YMICF2628-06-51 19:05:006.9[facility]annCHEM FTGST5491-17-52 19:05:002.6[facility]annCHEM JHFNB2664-23-07 19:05:0040[facility]annCHEM IBCTC7391-04-65 19:05:0075 [facility]annCHEM LBLLZ6581-06-48 19:05:0013.0[facility] HermannCHEM PANEL 2018-06-25 19:05:00 Test Item Value Reference Range Interpretation Comments B/C Ratio (test code = B/C Ratio) 17 1 6-25 [facility] HermannCHEM KZHNG9475-57-65 19:05:00 Test Item Value Reference Range Interpretation Comments A/G Ratio (test code = A/G Ratio) 0.6 1 0.7-1.6 [facility] HermannCHEM RFKAQ9226-64-72 19:05:004.3[facility] HermannCHEM PANEL 2018-06-25 19:05:0031[facility]annCHEM RXFYY8725-93-48 19:05:002[facility] HermannCHEM FCYWR1317-52-39 19:05:11702Jeqxrnri HermannCHEM IGWYB5253-73-23 19:05:0067[facility] SuycasxODAJDFISUC1452-03-48 19:05:0033.5[facility] VFAPUNTEYQ0502-04-94 19:05:005.0[facility] NdosltmTUKSJZOGXI1135-34-28 19:05:00 Test Item Value Reference Range Interpretation Comments MCH (test code = MCH) 33.7 pg 27.0-31.0 [facility] JfinxhtRLCOQXTUXZ0063-44-20 19:05:08203.4[facility] HermannHEMATOLOGY 2018-06-25 19:05:0039.9[facility] IukubadCSRKHMJCLN9538-12-33 19:05:009.4[facility] GlwmfzmTAOXYJNBCK1807-18-92 19:05:27289Vrdthdbl EebehhcBETOHVIIIH1977-08-26 19:05:0015.2[facility] DbmcuxqCMHVBOUBDG8395-43-88 19:05:0013.4[facility] RDLJWAADVS8283-91-14 19:05:003.97[facility] FsfvutuZROLXNYFCO6283-10-48 19:05:0037 [facility] HmymjhnKLMZKSJHWU1786-22-94 19:05:003.2[facility] HermannHEMATOLOGY 2018-06-25 19:05:000.8[facility] OanimcpVEIRIESZSH0645-93-59 19:05:000.6[facility] EspnhhuPIGRNUDILR3597-50-64 19:05:000.4[facility] UfreyslYIFEIYRZHN1537-95-04 19:05:000.0[facility] CukkkqcRZZOVWYUAB3294-48-79 19:05:0064.0[facility] IEQCHUIWPA8056-34-37 19:05:0017.0[facility] EwwhzxqWDVRXHGHGY9054-77-14 19:05:00 12.0[facility] IdebcwbHQVBJJSOFE7677-83-24 19:05:007.0[facility] HermannHEMATOLOGY 2018-06-25 19:05:000.0[facility] FymhqpaDKTMJOHTAW8032-14-22 19:05:001+ *ABN*(06/25/18 2:05 PM)[facility] TwxkacpAQFXTXFNNZ8480-32-26 19:05:009.1[facility] XnduxerAUKUGSYQNS3577-88-47 19:05:95368Wlgjuxko AheoelwMRYBQQBPEY8434-45-20 19:05:001.5[facility] EvirarnERTZPFNXND2393-16-89 19:05:00<5[facility] ANNVPGXHOK3615-49-86 19:05:0019[facility] CzssvqtJUCIXTEYZW1528-40-48 19:05:0010.7 [facility]annLD-1 CVUUYJYSWN3208-22-24 19:05:0011[facility]LD-1 AIWEMUIKEP2916-00-83 19:05:0022[facility]LD-1 AFJPJPQGMS3373-68-98 19:05:0030[facility] IMSAZQVART4793-36-48 19:05:0026[facility] LD-1 HBPIWUFZVE0798-66-87 19:05:87759Hgfbdhqa HermannLD-1 YKJLWKKMHA0306-50-87 19:05:0011[facility] GodzqwiYDPJUW9356-09-06 19:05:00 Test Item Value Reference Range Interpretation Comments VLDL (test code = VLDL) 44 1 [facility] WwnlkngWFJKES0603-35-94 19:05:0098[facility] LmwesyeUOBAHJ4775-60-57 19:05:0029[facility] DrswzxiDBMIFA4672-13-24 19:05:68030Vcfssuij HermannLIPIDS 2018-06-25 19:05:30645Pffpdacb AeisbogRGIWCV9249-59-37 19:05:00 Test Item Value Reference Range Interpretation Comments CHD Risk (test code = CHD Risk) 5.90 1 4.00-7.30 [facility] LYCPY8205-94-42 19:05:000-2 (06/25/18 2:05 PM)[facility] SOMBX5012-02-36 19:05:00Yellow *NA*(06/25/18 2:05 PM)[facility] NYUWK7497-48-21 19:05:00Negative *NA*(06/25/18 2:05 PM)[facility] IYRWC3568-37-23 19:05:00Negative *NA*(06/25/18 2:05 PM) [facility] NOVLE5520-97-62 19:05:00Negative (06/25/18 2:05 PM) [facility] GEBKJ4875-07-30 19:05:00Negative (06/25/18 2:05 PM) [facility] EKAMJ4761-17-79 19:05:00Negative (06/25/18 2:05 PM) [facility] GWIVQ4610-12-61 19:05:00Negative (06/25/18 2:05 PM) [facility] LQOKW4141-81-04 19:05:00 Test Item Value Reference Range Interpretation Comments UA pH (test code = UA pH) 6.0 1 5.0-8.0 [facility] BOHSA3608-55-11 19:05:00Clear (06/25/18 2:05 PM) [facility] BQYUK3045-60-27 19:05:000.2[facility] QYLGG8568-21-42 19:05:00 Test Item Value Reference Range Interpretation Comments UA Spec Grav (test code = UA Spec 1.025 1 Grav) [facility]annCHEM PHIZD3788-01-26 15:06:002.8[facility] HermannCHEM PANEL 2018-05-14 15:06:001.5[facility] HermannCHEM PLSJW3710-30-79 15:06:007.1[facility] HermannCHEM SQUXZ0850-03-76 15:06:26273Jkisgfoq HermannCHEM NQUQY0430-12-85 15:06:0076[facility]annCHEM BNHUR4269-71-46 15:06:001.12[facility]annCHEM NRXHC7030-68-09 15:06:13035Rjnlhdrx HermannCHEM EOFEG8002-67-84 15:06:0015 [facility]annCHE[facility] QHEYQ8664-30-34 15:06:50114Xsgtpuxc HermannCHEM PANEL 2018-05-14 15:06:004.0[facility] HermannCHEM OUFQM8177-18-34 15:06:0027[facility]annCHEM OBOMP3022-08-98 15:06:67610Oumlgajl HermannCHEM JWFCS9664-74-21 15:06:009.0[facility] HermannCHEM RGHSI9805-52-34 15:06:0074[facility]annCHEM LNBCQ4313-71-94 15:06:0037[facility]annCHEM ZQGPA7239-48-45 15:06:21901 [facility]annCHEM UGCDC4611-54-27 15:06:000.2[facility] HermannCHEM PANEL 2018-05-14 15:06:007.5[facility] HermannCHEM IZYAE5060-63-57 15:06:002.8[facility] HermannCHEM UBGXI7490-72-02 15:06:0013.0[facility] HermannCHEM NCTAI4583-72-38 15:06:00 Test Item Value Reference Range Interpretation Comments B/C Ratio (test code = B/C Ratio) 13 1 6-25 [facility] HermannCHEM VNJFO1979-36-69 15:06:00 Test Item Value Reference Range Interpretation Comments A/G Ratio (test code = A/G Ratio) 0.6 1 0.7-1.6 [facility] HermannCHEM XQRET9694-98-15 15:06:004.7[facility] HermannCHEM PANEL 2018-05-14 15:06:000[facility] HermannCHEM XWMHU2081-76-19 15:06:33487Amizsxqp HermannCHEM RGZNS6561-10-83 15:06:0028[facility] HermannCHEM EBJUQ7773-95-95 15:06:0072[facility] LmlxrnnEYNBESEJXV1614-19-54 15:06:008.7[facility] SCQBMSRCCI5175-15-38 15:06:78643Rdeuumks DlhvoiqVNRMTMSMVO8117-42-69 15:06:00 18.9[facility] CdgxyjyMLXEWBVSGJ0078-51-37 15:06:0034.6[facility] HermannHEMATOLOGY 2018-05-14 15:06:004.5[facility] EluhzepXGUGUGSHLG4487-39-37 15:06:00 Test Item Value Reference Range Interpretation Comments MCH (test code = MCH) 33.6 pg 27.0-31.0 [facility] PvihbfaGQERBIZFWX7767-98-13 15:06:0097.0[facility] HermannHEMATOLOGY 2018-05-14 15:06:0038.4[facility] CahiwvjWAEQZXPMES4063-27-47 15:06:0013.3[facility] QuwsktuHIZKXXMXYG6522-14-89 15:06:003.96[facility] XbbeybpWLXHXGJMWX1109-52-01 15:06:0053[facility] TtraidfVKANKGDYJD2861-76-06 15:06:000.4[facility] YMYDBWUYAE9361-55-98 15:06:000.4[facility] InpgagkEXXLEKJHMY9829-70-26 15:06:009.3 [facility] GlugazuRSKKWKJJPY3255-38-66 15:06:0017.5[facility] HermannHEMATOLOGY 2018-05-14 15:06:0064.3[facility] XdviwsrHRDNQTFMRK8314-77-89 15:06:002.9[facility] JfjrzpuSHJLAJXFDG3643-98-46 15:06:000.6[facility] ImyokpqWQXDMHWRSA2682-29-54 15:06:000.8[facility] PlmodioZSRANULXXS1794-09-51 15:06:008.3[facility] YXWLFJEMWX6533-56-99 15:06:0015.0[facility] PzrbciqRLUSYLSUTR2913-10-86 15:06:00 883[facility] VinyopgAVPJHSYCKK3851-53-54 15:06:002.1[facility] HermannIMMUNOLOGY 2018-05-14 15:06:00<5[facility] WpiugdzTYTGVTKHEC5050-18-36 15:06:00<5 [facility] EcweljpEQRQBSQGSD3653-93-29 15:06:0010.1[facility] HermannLD-1 ISOENZYMES 2018-05-14 15:06:0018[facility]LD-1 GRSLGJVAHZ0993-83-71 15:06:0011 [facility]LD-1 NWHFTUZYXH2805-11-13 15:06:0025[facility]annLD-1 JVVMBUBOXG8790-61-97 15:06:0031[facility]LD-1 YSEMEOKKRG4624-14-04 15:06:0015[facility] HermannLD-1 PUFNJAAJHX3731-64-10 15:06:75065Hewdfabs Alexi TBBBHZ6869-06-32 15:06:00 Test Item Value Reference Range Interpretation Comments VLDL (test code = VLDL) 43 1 [facility] TyrwybwMOTZQA5500-05-56 15:06:43946Joiyxucd WsanhwdOFDKWI1127-72-76 15:06:26183Nuepluti AqfhjgiPRGMCJ1983-89-56 15:06:44688Ojdxqxuw HermannLIPIDS 2018-05-14 15:06:0031[facility] GxnzxwoYYICIE2919-50-40 15:06:00 Test Item Value Reference Range Interpretation Comments CHD Risk (test code = CHD Risk) 6.48 1 4.00-7.30 [facility] ECFBN9445-14-93 14:44:000-2 (05/14/18 9:44 AM)[facility] TBANP0788-47-28 14:44:00Negative (05/14/18 9:44 AM)[facility] DAYXV7357-47-11 14:44:00Negative (05/14/18 9:44 AM)[facility] WTTNW4708-53-35 14:44:00Negative (05/14/18 9:44 AM)[facility] WMPXL9748-11-46 14:44:001.0[facility] STOOL 2018-05-14 14:44:00Yellow *NA*(05/14/18 9:44 AM)[facility] STOOL 2018-05-14 14:44:00 Test Item Value Reference Range Interpretation Comments UA pH (test code = UA pH) 6.0 1 5.0-8.0 [facility] TXAGB6762-88-03 14:44:00>=1.030 *ABN*(05/14/18 9:44 AM)[facility] LKMYX4613-03-62 14:44:00Clear (05/14/18 9:44 AM) [facility] POCXZ0778-84-18 14:44:00Negative *NA*(05/14/18 9:44 AM) [facility] UWCGO4231-14-26 14:44:00Negative *NA*(05/14/18 9:44 AM) [facility] FYEXB6763-93-26 14:44:00Negative (05/14/18 9:44 AM) [facility][U] XRAY FEMUR 2 VWS RIGHT [id number] 11:11:00 Test Item Value Reference Range Interpretation Comments XR FEMUR 2 VWS EXAM: XR FEMUR 2 VWS RIGHT RIGHT (test code DATE: 05/10/2018 12:32 PM CDT = XR FEMUR 2 VWS INDICATION: Metastatic RIGHT) renal cell carcinoma to bone; Pathological fracture of right femur due to neoplastic disease with routine healing, subsequent encounter COMPARISON: Right femur series 03/29/2018 TECHNIQUE: AP and lateral radiographs of the right femur DISCUSSION: Unchanged alignment of pathologic subtrochanteric femur fracture fixated with cephalomedullary nail. Unchanged mild varus attenuation across the fracture. No hardware complication identified. Slight progressive healing of the fracture with fracture line still readily visible. Mild arterial calcification. IMPRESSION: Unchanged alignment with slight progressive healing of pathologic subtrochanteric femur fracture. No hardware complication identified. 05/10/2018 4:41 PM CDT [facility] PhysiciansCHEM GDPBA6918-89-91 19:21:000[facility] HermannCHEM EWOJT2479-19-63 19:21:09059Avtcasny HermannCHEM REPEE9773-82-08 19:21:0077 [facility] HermannCHEM DAUSU2707-61-19 19:21:0023[facility] HermannCHEM PANEL 2018-04-09 19:21:003.2[facility] HermannCHEM MMWFG9217-71-45 19:21:001.4[facility] HermannCHEM MDBVD2335-55-10 19:21:007.1[facility] HermannCHEM UPDRD7142-01-45 19:21:0058[facility] HermannCHEM KJFGD2909-70-91 19:21:009.5[facility] HermannCHEM ENQCU8398-32-04 19:21:58890Bsqdcyrr HermannCHEM CEVON5183-56-43 19:21:0026 [facility]annCHEM ONDWY6308-08-27 19:21:004.6[facility] HermannCHEM PANEL 2018-04-09 19:21:001.39[facility] HermannCHEM QERYI8341-17-59 19:21:58290Mbuvqhbt HermannCHEM UVTKJ3005-26-12 19:21:0023[facility] HermannCHEM WJTCH3719-67-00 19:21:64256Fvtplrip HermannCHEM EJMYG8010-11-72 19:21:002.8[facility] HermannCHEM QJSXY4356-35-14 19:21:000.3[facility] HermannCHEM SOVZM7228-85-58 19:21:007.6 [facility]annCHEM GYDUJ0118-54-16 19:21:0077[facility] HermannCHEM PANEL 2018-04-09 19:21:0033[facility] HermannCHEM IGEGL4385-55-30 19:21:01735Pqdufafg HermannCHEM JQCXE1137-50-11 19:21:0012.6[facility] HermannCHEM TDOQC6745-60-91 19:21:00 Test Item Value Reference Range Interpretation Comments B/C Ratio (test code = B/C Ratio) 17 1 6-25 [facility] HermannCHEM EYWSX4122-19-12 19:21:004.8[facility] HermannCHEM PANEL 2018-04-09 19:21:00 Test Item Value Reference Range Interpretation Comments A/G Ratio (test code = A/G Ratio) 0.6 1 0.7-1.6 [facility] HermannCHEM RHDTE2794-32-47 19:21:47570Ulwqksqi HermannHEMATOLOGY 2018-04-09 19:21:009.0[facility] HoprwttXPGJBBNKYU4223-65-73 19:21:86693Dtlfsauo KlppjlyPINKCXHVQX6594-69-92 19:21:0022.5[facility] EupfvhjMFKLACEKRH8490-26-74 19:21:0034.2[facility] NqjouloCYQSKBMPVK4034-66-52 19:21:0038.4[facility] SEQSNTXHFL5235-81-51 19:21:0087.9[facility] ShaathmWMBATOFSOA1985-30-37 19:21:00 Test Item Value Reference Range Interpretation Comments MCH (test code = MCH) 30.0 pg 27.0-31.0 [facility] IoboymoRMVZIDQKTX1005-17-69 19:21:004.3[facility] HermannHEMATOLOGY 2018-04-09 19:21:004.37[facility] FwkeujxTSTHHWZQQK5178-70-04 19:21:0013.1[facility] AvkqcevTJEINQXNMP4019-62-51 19:21:0053[facility] AvagipcMVSGHUGZKY5035-15-20 19:21:00Moderate *ABN*(04/09/18 2:21 PM)[facility] TbciiiqUQIENVEKCQ2341-16-31 19:21:00Present *ABN*(04/09/18 2:21 PM)[facility] CehwfveELULEZPYBM4191-22-21 19:21:001+ *ABN*(04/09/18 2:21 PM)[facility] KbbjvydRRKUZBLIVS8984-72-04 19:21:00 0.3[facility] KlznqdfORDCYUXBKX6513-53-81 19:21:000.9[facility] HermannHEMATOLOGY 2018-04-09 19:21:002.6[facility] AcvtwjbKWLRQGFOJJ3304-68-83 19:21:000.3[facility] DsremgaMEKVVTSYKL7242-87-01 19:21:000.5[facility] FmonyokDMPYLYUILK1402-19-29 19:21:0021.5[facility] MfucqjpJUKPQTGTEE2653-93-98 19:21:0011.6[facility] GZFPMZAGJS5113-70-96 19:21:006.4[facility] ZuokquoECGAXZJIXR3476-43-02 19:21:00 60.2[facility] CwxeulrRTKPTSLDUG2922-74-21 19:21:20620Nvihxmjn HermannIMMUNOLOGY 2018-04-09 19:21:001.7[facility] QkcczjxDZKBWGFRKB2909-24-37 19:21:00<5[facility] GggdlebJVVKNTMUPS4690-38-93 19:21:00<5[facility] MegzhatDVNELCUNOZ2617-67-84 19:21:0011.1[facility] BummqcdYIPTZPXZNA3484-49-76 19:21:0019.1[facility] HermannLD- 1 ETAVOGCFES9846-37-33 19:21:11617Baehboyt HermannLD-1 YPXBJDFFTT1777-51-49 19:21:0024[facility] HermannLD-1 VHHAQBBLXE8867-12-08 19:21:0010[facility] LD-1 KYXXDJSLEK2195-09-91 19:21:0017[facility] HermannLD-1 ZFJICWFBZS6040-44-81 19:21:0031[facility] HermannLD-1 FYYKCLTHZL7391-40-71 19:21:0018[facility] GQGUGJ5384-52-69 19:21:00 Test Item Value Reference Range Interpretation Comments VLDL (test code = VLDL) 50 1 [facility] DyvkkxlYHUCAZ0973-24-30 19:21:41260Rkfysjij KfsdcbeWLTNFK9584-07-00 19:21:75954Glvokuqx LyfzcxtRFNMRG8407-08-56 19:21:0030[facility] HermannLIPIDS 2018-04-09 19:21:38959Jiprxsdb MykmrtfUGHRWQ5352-42-31 19:21:00 Test Item Value Reference Range Interpretation Comments CHD Risk (test code = CHD Risk) 6.90 1 4.00-7.30 [facility] MJLDB8363-56-07 19:21:000-2 (04/09/18 2:21 PM)[facility] NZCDX5177-65-07 19:21:00Clear (04/09/18 2:21 PM)[facility]INE AND AXVET6160-98-98 19:21:00Yellow *NA*(04/09/18 2:21 PM)[facility] URINE AND BPTMK2489-20-43 19:21:00>=1.030 *ABN*(04/09/18 2:21 PM)[facility] HDLAJ1477-01-14 19:21:00Negative *NA*(04/09/18 2:21 PM)[facility] EULEJ9759-66-24 19:21:00Negative *NA*(04/09/18 2:21 PM)[facility] UVJBL6755-25-09 19:21:00 Test Item Value Reference Range Interpretation Comments UA pH (test code = UA pH) 6.0 1 5.0-8.0 [facility] YEHWC1509-73-68 19:21:00Negative (04/09/18 2:21 PM) [facility] LNGOV5501-52-80 19:21:00Negative (04/09/18 2:21 PM) [facility] DZYAY9486-94-95 19:21:00Negative (04/09/18 2:21 PM) [facility] CWMBW8462-07-98 19:21:00Negative (04/09/18 2:21 PM) [facility] VONHL8918-12-92 19:21:001.0[facility][U] XRAY FEMUR 2 VWS RIGHT [id number] 13:36:00 Test Item Value Reference Range Interpretation Comments XR FEMUR 2 VWS EXAM: XR FEMUR 2 VWS RIGHT RIGHT (test code = DATE: 03/29/2018 3:00 PM CDT XR FEMUR 2 VWS INDICATION: 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 Slight interval remodeling of the fracture fraction line still faintly visible. Unchanged, satisfactory appearance of intramedullary nail. IMPRESSION: Unchanged, satisfactory appearance of internally fixated pathologic subtrochanteric femur fracture. 03/29/2018 4:55 PM CDT [facility] PhysiciansCHEM ZICJL2820-11-35 15:00:32319Svmwlhji [facility] CHEM SXZUB4926-27-05 15:00:007.5[facility] HermannCHEM JSXXW1611-87-21 15:00:003.4 [facility]annCHEM XUOSZ3136-82-82 15:00:001.8[facility] HermannCHEM PANEL 2018-03-12 15:00:00 Test Item Value Reference Range Interpretation Comments A/G Ratio (test code = A/G Ratio) 0.6 1 0.7-1.6 [facility]annCHEM AJREH8764-20-44 15:00:004.7[facility] HermannCHEM PANEL 2018-03-12 15:00:00 Test Item Value Reference Range Interpretation Comments B/C Ratio (test code = B/C Ratio) 18 1 6-25 [facility] HermannCHEM CKNBU1927-29-14 15:00:0013.6[facility] HermannCHEM PANEL 2018-03-12 15:00:0076[facility] HermannCHEM BGLWY9666-14-49 15:00:10042Xbzjuoti HermannCHEM SSTAD2531-74-16 15:00:001.12[facility] HermannCHEM MPLMN6795-84-48 15:00:19247Uuywymbf HermannCHEM OEXME9233-79-31 15:00:0020[facility] HermannCHEM USLOX5272-24-39 15:00:72526Glkvwiky HermannCHEM HDPVZ8537-77-00 15:00:0026 [facility]annCHEM CSEMD5773-25-95 15:00:009.0[facility] HermannCHEM PANEL 2018-03-12 15:00:004.6[facility] HermannCHEM TEULV1568-43-21 15:00:007.6[facility] HermannCHEM GTCLK5327-48-00 15:00:42680Imluxqnx HermannCHEM ZTGOO1588-37-38 15:00:002.9[facility] HermannCHEM EFPYU6918-09-08 15:00:0093[facility] HermannCHEM ODWWH9353-40-68 15:00:000.2[facility] HermannCHEM UZNEG1880-61-38 15:00:0040 [facility]annCHEM KSVLP5546-11-25 15:00:71011Uwfioxzt HermannCHEM PANEL 2018-03-12 15:00:0073[facility] HermannCHEM NXSML3388-99-15 15:00:0027[facility] HermannCHEM UASAU8134-00-70 15:00:000[facility] ZlblqtxNDMCDUOGZG8516-27-09 15:00:0013.0[facility] FgwspvxGKYXWYUXRL4203-22-93 15:00:005.7[facility] XUCSKFINPW1065-11-70 15:00:0061.1[facility] BobweqvFWHEOXISWX6434-22-82 15:00:00 19.7[facility] ExaisbrTQIOXVVYYA8784-13-27 15:00:002.4[facility] HermannHEMATOLOGY 2018-03-12 15:00:000.5[facility] EgdbyluIMUEGBMMPE5386-93-82 15:00:000.2[facility] IxkiytdPWVTURGGEQ3215-46-21 15:00:000.8[facility] VtlwalqBLLPYGHXKA6415-88-40 15:00:000.5[facility] IlcjvkoGVCOGOYEWF9631-99-05 15:00:0067[facility] LOQMCDCXJY1263-12-15 15:00:0086.5[facility] DgmniowOJXSOKZEBG2397-60-95 15:00:00 20.6[facility] QrykepaWHBSUXVXXN6744-30-75 15:00:32067Tivuccli HermannHEMATOLOGY 2018-03-12 15:00:0033.7[facility] KkrpogaXMTGKYIKFP9499-70-89 15:00:00 Test Item Value Reference Range Interpretation Comments MCH (test code = MCH) 29.1 pg 27.0-31.0 [facility] AsntmifFLQJXYARWN0402-19-48 15:00:008.7[facility] HermannHEMATOLOGY 2018-03-12 15:00:0040.7[facility] AsysnryFGFJITCAWU9570-19-95 15:00:0013.7[facility] SdhotsoSVXTOURKWN3083-93-06 15:00:004.70[facility] JmiwqtcZXKXLYVYDY5832-58-65 15:00:004.0[facility] BfyrdhbICGQHKQPLA8837-28-71 15:00:0018.9[facility] GHFCHJVEBV3131-79-74 15:00:002.2[facility] CefvzrnNXPRWIZTKS0955-66-77 15:00:00 <5[facility] TaooeylWHYMNZFBWD8474-58-65 15:00:89718Njmdfscg HermannIMMUNOLOGY 2018-03-12 15:00:00<5[facility] QajceeyVJYPUGJLQP5281-37-96 15:00:009.6[facility] HermannLD-1 ZXNXYVUEOD7330-33-58 15:00:0023[facility]annLD-1 ISOENZYMES 2018-03-12 15:00:0032[facility]LD-1 UFGDBHBAFC2199-85-65 15:00:0019 [facility] PEKGQMEPPH4341-07-01 15:00:009[facility]-1 GCJQGMTGFE5092-28-69 15:00:31931Mwusiild HermannLD-1 BUYRVZOINY0169-69-48 15:00:0017[facility] RhunafkHJRBKK4705-17-52 15:00:00 Test Item Value Reference Range Interpretation Comments VLDL (test code = VLDL) 46 1 [facility] DeayebwWETQGO6676-33-78 15:00:17169Qujkehjj VqlarlhYPPVBK6086-66-48 15:00:83267Rdzozbek YvxagjmWHEOEB8768-49-84 15:00:85763Tcbuuzkz HermannLIPIDS 2018-03-12 15:00:0035[facility] YzrrmryKZXAVV9043-53-11 15:00:00 Test Item Value Reference Range Interpretation Comments CHD Risk (test code = CHD Risk) 6.43 1 4.00-7.30 [facility] EAAIU3445-66-62 14:52:00Negative (03/12/18 9:52 AM) [facility] FLJXR1223-50-48 14:52:00Negative *NA*(03/12/18 9:52 AM) [facility] HOTFC3433-30-80 14:52:000.2[facility] KCEOP5075-27-07 14:52:00Negative (03/12/18 9:52 AM)[facility] FYBVU2762-81-71 14:52:00Negative (03/12/18 9:52 AM)[facility] KWUFQ9758-77-13 14:52:00 Test Item Value Reference Range Interpretation Comments UA pH (test code = UA pH) 5.5 1 5.0-8.0 [facility] GNBYH6703-31-25 14:52:00Negative *NA*(03/12/18 9:52 AM) [facility] YZTDW7775-51-44 14:52:00Trace *ABN*(03/12/18 9:52 AM) [facility] OPYUL9330-98-45 14:52:00Negative (03/12/18 9:52 AM) [facility] SXXLJ2601-52-66 14:52:00<=1.005 *NA*(03/12/18 9:52 AM)[facility] XNIXP3432-24-84 14:52:00Clear (03/12/18 9:52 AM) [facility] BKQNJ2926-74-46 14:52:00Light Yellow (03/12/18 9:52 AM) [facility]annCHEM VAKSG5926-22-06 20:22:003.6[facility] HermannCHEM PANEL 2018-02-19 20:22:001.6[facility] HermannCHEM ZKXZZ2655-50-17 20:22:000.1[facility] HermannCHEM HEIUI2911-72-32 20:22:53922Pdbsxvqa HermannCHEM VQFCL5312-43-27 20:22:0034[facility] HermannCHEM XRTFX2825-57-46 20:22:0077[facility] HermannCHEM AAQCP1931-75-59 20:22:002.7[facility] HermannCHEM CFQHZ3741-44-82 20:22:007.6 [facility]annCHE[facility] DFRRH2999-39-30 20:22:0061[facility] HermannCHEM PANEL 2018-02-19 20:22:008.6[facility]annCHEM VUFSS7836-31-85 20:22:42145Mzohzrrm HermannCHEM ZPCPG9957-80-03 20:22:0027[facility]annCHEM EPNTG5642-96-15 20:22:004.7[facility] HermannCHEM XQLQT9106-34-00 20:22:33341Atbecqap HermannCHEM QRKLB0303-06-42 20:22:0023[facility] HermannCHEM CHKAW3401-27-08 20:22:001.33 [facility]annCHEM DYDGW2429-17-99 20:22:06700Qlnftigk HermannCHEM PANEL 2018-02-19 20:22:00 Test Item Value Reference Range Interpretation Comments A/G Ratio (test code = A/G Ratio) 0.6 1 0.7-1.6 [facility]annCHE[facility] CKUWZ8719-53-91 20:22:004.9[facility] HermannCHEM PANEL 2018-02-19 20:22:00 Test Item Value Reference Range Interpretation Comments B/C Ratio (test code = B/C Ratio) 17 1 6-25 [facility]annCHEM KXXPH5157-52-91 20:22:0012.7[facility] HermannHEMATOLOGY 2018-02-19 20:22:80207Sawzoazr YujwltnCHSOYHDYJS6366-65-83 20:22:0018.8[facility] ObmbigvXZMXMQAZZE4224-92-40 20:22:008.6[facility] YsvciwgATUUNSGVFG8308-16-97 20:22:0033.7[facility] NlneiegUKNRKECCGP5711-01-17 20:22:00 Test Item Value Reference Range Interpretation Comments MCH (test code = MCH) 28.9 pg 27.0-31.0 [facility] VnqcfukUKWFOASYVA1155-80-31 20:22:0085.8[facility] HermannHEMATOLOGY 2018-02-19 20:22:0014.0[facility] RcisuviYTUYWMMHXR5457-80-56 20:22:004.84[facility] PhmmmmnAKHZMCCGKA3567-21-41 20:22:003.9[facility] CirxlatMHRIJTVHHP8925-03-06 20:22:0041.6[facility] CrxwydhTLINWSXZVC5563-01-29 20:22:002.2[facility] MOKQEYJMNN5514-03-11 20:22:001.0[facility] KbylfioKUQEECHEUI6461-17-26 20:22:000.2 [facility] LliqjohGNMXKFTSYE3416-67-97 20:22:000.5[facility] HermannHEMATOLOGY 2018-02-19 20:22:006.2[facility] NewngzcQXSEFNRHRX6068-03-04 20:22:0011.8[facility] RwunugjMCICQBLTOX5098-97-61 20:22:0025.6[facility] IcxhkofVNTTRTGJKK7244-93-51 20:22:000.8[facility] WzacnfkAPIIGCHRNU7840-55-69 20:22:0055.6[facility] NCTYLJ8097-54-70 20:22:00See Note 2*NA*(02/19/18 3:22 PM)[facility] HermannLIPIDS 2018-02-19 20:22:18903Wqluvghm KyiyhqsHCFNJN3485-37-05 20:22:00 Test Item Value Reference Range Interpretation Comments CHD Risk (test code = CHD Risk) 8.19 1 4.00-7.30 [facility] VrgfhofDINUEE6675-51-78 20:22:0031Memoriwv JulmgesYGGUVA6059-00-97 20:22:46137[facility]INAL[facility], COMPLETE W/REFLEX TO CULTURE 2017-12-17 13:51:01 Test Item Value Reference Range Interpretation Comments UA Color (test code = 5778-6) Yellow Yellow UA Turbidity (test code = Clear Clear 63625-5) UA Spec Grav (test code = 5810-7) 1.025 1 <=1.030 UA pH (test code = 5803-2) 6.0 1 5.0-8.0 UA Protein; Abnormal (test code = >=300 Negative A 50064-1) UA Glucose (test code = 04562-1) Negative Negative UA Ketones; Abnormal (test code = Trace Negative A 69706-9) UA Bili (test code = 5770-3) Negative Negative UA Blood (test code = 5794-3) Negative Negative UROBILINOGEN (test code = 0.2 {EU/DL} 0.1-1.0 95601-9) UA Nitrite (test code = 5802-4) Negative Negative UA Leuk Est (test code = 5799-2) Negative Negative UA RBC (test code = 29292-5) 0-2 0-2 UA WBC (test code = 21498-1) 0-2 None Seen UA Bacteria (test code = 60783-7) Occasional None Seen UA Sq Epi (test code = 51086-2) Occasional Few [facility]] CBC (INCLUDES DIFF/PLT)2017-12-17 13:51:01 Test Item Value Reference Range Interpretation Comments WBC (test code = 6690-2) 6.6 {K/CMM} 3.7-10.4 RBC; Below Low Threshold (test 4.53 {M/CMM} 4.70-6.10 code = 789-8) Hgb; Below Low Threshold (test 13.2 g/dl 14.0-18.0 code = 718-7) Hct; Below Low Threshold (test 39.0 % 42.0-54.0 code = 87008-2) MCV (test code = 787-2) 86.0 fL 80.0-94.0 MCH (test code = 785-6) 29.0 pg 27.0-31.0 MCHC (test code = 786-4) 33.7 g/dl 32.0-36.0 RDW; Above High Threshold (test 14.6 % 11.5-14.5 code = 788-0) Platelet (test code = 15872-9) 329 {K/CMM} 133-450 Mean Platelet Volume (test code 9.0 fL 7.4-10.4 = 60603-3) [facility]] Ipxpsqxvlzaj6119-71-13 13:51:01 Test Item Value Reference Range Interpretation Comments Segmented Neutrophils (test code 71.0 % 45.0-75.0 = 91452-9) Monocytes (test code = 31882-7) 10.4 % 2.0-12.0 Lymphocytes; Below Low Threshold 11.0 % 20.0-40.0 (test code = 29661-6) Eosinophils; Above High Threshold 6.9 % 0.0-4.0 (test code = 16639-4) Basophils (test code = 706-2) 0.7 % 0.0-1.0 Segs-Bands # (test code = 4.7 {K/CMM} 1.5-8.1 68902-7) Lymphocytes #; Below Low 0.7 {K/CMM} 1.0-5.5 Threshold (test code = 89818-9) Monocytes # (test code = 03860-7) 0.7 {K/CMM} 0.0-0.8 Eosinophils # (test code = 0.5 {K/CMM} 0.0-0.5 33328-0) [facility]] [id number] 13:51:01 Test Item Value Reference Range Interpretation Comments Lactate Dehydrogenase (test code = 190 u/l 98-192 2532-0) [facility]] [id number] 13:51:01 Test Item Value Reference Range Interpretation Comments Magnesium Level (test code = 2.0 mg/dl 1.8-2.4 53835-8) [facility]] PHOSPHATE ( PHOSPHORUS)2017-12-17 13:51:01 Test Item Value Reference Range Interpretation Comments Phosphorus Level (test code = 3.3 mg/dl 2.5-4.5 2777-1) [facility]] TSH, 3RD [id number] 13:51:01 Test Item Value Reference Range Interpretation Comments TSH (test code = 81867-1) 1.680 {uIU/ml} 0.360-3.740 [facility]] URIC [id number] 13:51:01 Test Item Value Reference Range Interpretation Comments Uric Acid (test code = 3084-1) 8.0 mg/dl 3.8-8.0 [facility]] CMP [id number] 13:51:01 Test Item Value Reference Range Interpretation Comments Sodium Level 136 {mEq/l} 135-145 (test code = 2951-2) Potassium Level 4.5 {mEq/l} 3.5-5.1 (test code = 2823-3) Chloride Level 100 {mEq/l} 95-109 (test code = 5-0) Carbon Dioxide 26 {mEq/l} 24-32 (test code = 2027-9) AGAP (test code = 14.5 {mEq/l} 10.0-20.0 97566-4) Glucose Lvl; 285 mg/dl 70-99 Adult reference range Above High values reflect the Threshold (test clinical giancarlo delinesof the code = 2345-7) [place]. Creatinine Lvl; 1.56 mg/dl 0.50-1.40 Above High Threshold (test code = 2160-0) Blood Urea 25 mg/dl 7-22 Nitrogen; Above High Threshold (test code = 3094-0) BUN/Creatinine 16 1 6-25 Ratio (test code = 3097-3) Total Protein; 9.2 g/dl 6.4-8.4 Above High Threshold (test code = 2885-2) Albumin Lvl (test 3.5 g/dl 3.5-5.0 code = 1751-7) Globulin; Above 5.7 g/dl 2.7-4.2 High Threshold (test code = 71266-2) A/G Ratio; Below 0.6 1 0.7-1.6 Low Threshold (test code = 1759-0) Calcium Level 9.3 mg/dl 8.5-10.5 Total (test code = 08365-7) ALT; Above High 75 u/l 0-65 Threshold (test code = 1743-4) AST (test code = 31 u/l 0-37 64303-2) Alk Phos; Above 155 u/l 39-136 High Threshold (test code = 1783-0) Bili Total; Below 0.1 mg/dl 0.2-1.3 Low Threshold (test code = 1975-2) eGFR (test code = 51 The eGFR i s calculated 76996-9) {ML/MIN/1.7} using the CKD-E PI formula. In mos t young, healthyindividu als the eGFR will be >9 0 mL/min/1.73m2. The eGFR declines with a ge. AneGFR of 60-89 may be normal in some population s, particularly th e elderly, forwhom the CKD -EPI formula has not been extensively preston idated. Use of the eGFR isnot recommended in the following populations:Ind ividuals with unstable c reatinine concentrations, including patient s and those with seri ous co-morbid conditions.Yady ents with extremes in mus moody mass or diet.The manpreet a above are obtained fr om the National Kidney Disease Education Progr am(NKDEP) which saloni otto recommends that when the eGFR is used in patientswith ex tremes of body mass index for purposes of lucia g dosing, the eGFR should be multiplied by t he estimated BMI. [facility]] LIPID [id number] 13:51:01 Test Item Value Reference Range Interpretation Comments Chol; Above High 269 mg/dl <=199 Threshold (test code = 2093-3) Trig; Above High 483 mg/dl <=149 Threshold (test code = 2571-8) HDL Cholesterol; 35 mg/dl >=61 Below Low Threshold (test code = 2085-9) CHD Risk; Above 7.69 1 4.00-7.30 High Threshold (test code = 37374-3) LDL (test code = See Note <=99 [place] [address]-5) calculated due to very high triglyceri hector (>400mg/dL). Re commend Direct LDL if c linically indicated. VLDL (test code = See Note VLDL - Cho lesterol level VLDL) cannot be accur ately calculated due to very hightriglycerid es (>400 mg/dL). [facility]] HEMOGLOBIN [id number] 13:51:01 Test Item Value Reference Range Interpretation Comments Hemoglobin A1c; Above High Threshold 7.8 % <=5.6 (test code = 4548-4) [facility]] C-REACTIVE [id number] 13:51:01 Test Item Value Reference Range Interpretation Comments CRP (test code = CRP) 15.4 mg/L <=2.9 [facility]] T4, [id number] 13:51:01 Test Item Value Reference Range Interpretation Comments T4 Free (test code = 3024-7) 0.96 ng/dl 0.76-1.46 [facility]] SED RATE BY MODIFIED [id number] 13:51:01 Test Item Value Reference Range Interpretation Comments Sedimentation Rate; Above High 55 {mm/hr} 0-15 Threshold (test code = 59273-7) [facility]] T3, [id number] 13:51:01 Test Item Value Reference Range Interpretation Comments T3 Total (test code = 3053-6) 0.95 ng/ml 0.60-1.81 [facility] [id number] 20:28:0058[facility] CHEM GCNLK2846-52-34 20:28:001.4[facility]] URINALYSIS, COMPLETE W/REFLEX TO [id number] 14:09:01 Test Item Value Reference Range Interpretation Comments URINALYSIS, COMPLETE Cancel Reason: Ordered W/REFLEX TO CULTURE In Error (test code = URINALYSIS, COMPLETE W/REFLEX TO CULTURE) [facility]] C-REACTIVE [id number] 14:09:01 Test Item Value Reference Range Interpretation Comments CRP (test code = CRP) Cancel Reason: Ordered In Error [facility]] CBC (INCLUDES DIFF/PLT)2017-11-20 14:09:01 Test Item Value Reference Range Interpretation Comments CBC (INCLUDES Cancel Reason: Ordered DIFF/PLT) (test code In Error = CBC (INCLUDES DIFF/PLT)) [facility]] CMP [id number] 14:09:01 Test Item Value Reference Range Interpretation Comments CMP (test code = CMP) Cancel Reason: Ordered In Error [facility]] [id number] 14:09:01 Test Item Value Reference Range Interpretation Comments Lactate Dehydrogenase Cancel Reason: (test code = 2532-0) Ordered In Error [facility]] LIPID [id number] 14:09:01 Test Item Value Reference Range Interpretation Comments Lipid Panel w/c LDL Cancel Reason: Ordered (test code = Lipid In Error Panel w/c LDL) [facility]] [id number] 14:09:01 Test Item Value Reference Range Interpretation Comments Magnesium Level (test Cancel Reason: code = 20422-1) Ordered In Error [facility]] PHOSPHATE ( PHOSPHORUS)2017-11-20 14:09:01 Test Item Value Reference Range Interpretation Comments Phosphorus Level (test Cancel Reason: code = 2777-1) Ordered In Error [facility]] SED RATE BY MODIFIED [id number] 14:09:01 Test Item Value Reference Range Interpretation Comments SED RATE BY MODIFIED Cancel Reason: TAERGREN (test code = Ordered In Error SED RATE BY MODIFIED WESTERGREN) [facility]] T3, [id number] 14:09:01 Test Item Value Reference Range Interpretation Comments T3 Total (test code = Cancel Reason: Ordered 3053-6) In Error [facility]] T4, [id number] 14:09:01 Test Item Value Reference Range Interpretation Comments T4 Free (test code = Cancel Reason: Ordered 3024-7) In Error [facility]] TSH, 3RD [id number] 14:09:01 Test Item Value Reference Range Interpretation Comments TSH (test code = Cancel Reason: Ordered 33717-4) In Error [facility]] URIC [id number] 14:09:01 Test Item Value Reference Range Interpretation Comments Uric Acid (test code Cancel Reason: Ordered = 3084-1) In Error [facility][H] Tumor Necrosis Factor - [id number] 14:09:01 Test Item Value Reference Range Interpretation Comments Tumor Necrosis Factor - Cancel Reason: Ordered Alpha (test code = In Error Tumor Necrosis Factor - Alpha) [facility][H] Interleukin-6, HS by [id number] 14:09:01 Test Item Value Reference Range Interpretation Comments Interleukin-6, HS by Cancel Reason: Ordered MCKENZIE (test code = In Error Interleukin-6, HS by MCKENZIE) [facility][H] VEG [id number] 14:09:01 Test Item Value Reference Range Interpretation Comments VEG Factor (test code Cancel Reason: Ordered = VEG Factor) In Error [facility][H] Interleukin 10 by [id number] 14:09:01 Test Item Value Reference Range Interpretation Comments Tumxxnfrcev43 (test Cancel Reason: Ordered code = Efefckfjkby48) In Error [facility][H] Interleukin 12 by [id number] 14:09:01 Test Item Value Reference Range Interpretation Comments Interleukin 12 (test code Cancel Reason: = Interleukin 12) Ordered In Error [facility]] LACTATE DEHYDROGENASE ISOENZYME PANEL 2017-11-20 14:09:01 Test Item Value Reference Range Interpretation Comments LACTATE DEHYDROGENASE Cancel Reason: ISOENZYME PANEL (test code Ordered In Error = LACTATE DEHYDROGENASE ISOENZYME PANEL) [facility][U] XRAY FEMUR 2 VWS RIGHT [id number] 11:01:00 Test Item Value Reference Range Interpretation Comments XR FEMUR 2 VWS EXAM: XR FEMUR 2 VWS RIGHT RIGHT (test code = DATE: 11/09/2017 11:45 AM XR FEMUR 2 VWS CDT INDICATION: RIGHT) pathological fracture of right femur due to neoplastic disease, initial encounter COMPARISON: None available TECHNIQUE: AP and lateral radiographs of the right femur DISCUSSION: Patient is status post intramedullary nailing of an obliquely oriented proximal femoral diaphysis fracture. There is mild varus angulation of the fracture site. There is some evidence of osseous bridging although the fracture lines remain evident. Small fracture fragment is seen in the soft tissues lateral to the fracture site. No perihardware lucency to suggest hardware failure IMPRESSION: Status post intramedullary nailing of an obliquely oriented proximal femoral diaphysis fracture with mild varus angulation of the fracture site. 11/09/2017 11:52 AM CDT [place] [facility] JqgbekkpjiWKYNYQXYKOMQ0626-58-01 11:16:0012.0[facility] MgkrkzdYHHXERSPCEDB2755-83-05 11:16:0090[facility] PqhitooHGHMTMRNJKDW6942-45-46 11:16:60700Hscvpwln JxtletrXDLOIJCRBWMG1427-52-33 11:16:000.98[facility] NJPZCRKJKANA3114-05-60 11:16:0022[facility] CewjosuVYMAANDGHEGA3312-60-64 11:16:00 140[facility] SzsgvycEDJPSPUTYYUY7189-89-69 11:16:004.0[facility] AXVNJYKSEZRU7080-66-25 11:16:008.5[facility] JpalptbMNSBYVEBHYNA6168-04-01 11:16:0026[facility] IeylfhcFNGYZDSATKFY5752-08-37 11:16:75477Ebjclfdp [facility] KITTUYYNMD3600-81-14 11:16:0033.5[facility] LauhwlgAPQEULBCGR5264-56-29 11:16:00 15.7[facility] YtblykbNLIKTHRYTD1494-68-52 11:16:41142Futipvtf HermannHEMATOLOGY 2017-10-27 11:16:008.0[facility] ImvngeuHZPYLBLUVV9389-99-76 11:16:007.7[facility] FbirjytHXSQVTOHTG9986-32-10 11:16:002.69[facility] ThomterHGFUKPAXCF6733-31-69 11:16:0023.4[facility] ArgucwbYJDTPGESDN4998-64-11 11:16:007.8[facility] CEBMCRWSVA7969-67-65 11:16:0087.2[facility] BhzdhtuWKTDPYTAXT2154-38-64 11:16:00 Test Item Value Reference Range Interpretation Comments MCH (test code = MCH) 29.2 pg 27.0-31.0 [facility] DuknjrgHNBJNXHKIZ3766-47-22 11:16:004.2[facility] HermannHEMATOLOGY 2017-10-27 11:16:000.4[facility] LffxazyJCQLSOHUNE0574-87-90 11:16:001.0[facility] QligejbQGKBXODOXY4940-33-92 11:16:000.4[facility] HqdbsdlYFWRQLBPBM6516-50-38 11:16:002.1[facility] ZmwoesdIVOQQWQYXM9374-43-30 11:16:0013.2[facility] TYHIXGKYKJ6005-58-17 11:16:005.3[facility] DvrctmcNCJVZXRNVT5516-41-26 11:16:00 27.1[facility] SkjmccmENYUZBEVIN2209-26-52 11:16:0054.0[facility] HermannCHEM PANEL 2017-10-26 09:40:0078[facility] HermannCHEM TZHRR4147-31-40 09:40:0082[facility] HermannCHEM QMQKF7424-83-80 09:40:001.10[facility] HermannCHEM BAYUK3918-77-53 09:40:61845Zvizffvl HermannCHEM KMSLN2474-59-69 09:40:0029[facility] HermannCHEM JCHRT4519-89-25 09:40:004.3[facility] HermannCHEM ALQQN0930-58-83 09:40:008.7 [facility]annCHEM SJEVK3983-39-87 09:40:0023[facility] HermannCHEM PANEL 2017-10-26 09:40:27860Khtrkzsf HermannCHEM MRINU3578-32-43 09:40:0014.3[facility] CxclvskJBARNOAMIG4624-33-19 09:40:002.3[facility] VmpidwgCTVOKEJASO0199-12-59 09:40:001.3[facility] AvauhyyQHTKAOGDBK6150-27-17 09:40:000.5[facility] UEUFRZNNUJ4122-72-84 09:40:0023.5[facility] UahjcltBTSFBXTJMO7304-74-74 09:40:00 57.7[facility] MlormspLQKSYBYTMO2872-68-54 09:40:004.7[facility] HermannHEMATOLOGY 2017-10-26 09:40:0013.7[facility] KwbesjjXQZYZHCTFH3953-65-72 09:40:005.6[facility] XhaferjBBLGPJXQJU7469-60-65 09:40:000.4[facility] XlyfsudQYPLCWTPAR9207-24-13 09:40:009.6[facility] IwchpjlCRGFPZNCKK3822-09-15 09:40:002.70[facility] ZNSGFMHDOI5368-01-61 09:40:007.8[facility] KjmhhkxRCEBSVOWVO2385-21-88 09:40:008.7 [facility] DqbvqglYGHNHADLLM5599-57-73 09:40:92178Shlttrna HermannHEMATOLOGY 2017-10-26 09:40:0023.3[facility] UlcsmjdCBAZLARPYS4947-25-00 09:40:0086.1[facility] ImxzbisURXVSOIFRH4189-08-55 09:40:00 Test Item Value Reference Range Interpretation Comments MCH (test code = MCH) 28.9 pg 27.0-31.0 [facility] ZuovcxzAQYKBVEGSW7081-95-79 09:40:0033.5[facility] HermannHEMATOLOGY 2017-10-26 09:40:0015.3[facility]annBLOOD BANK LCMWBHA7632-93-80 12:44:00 Product available (10/25/17 6:44 AM)[facility] LuggjuhBIOZIOTDSGYF4478-43-10 09:27:0010.2[facility] WqqorgtOHMUMJGQREYF6844-85-00 09:27:0075[facility] YFMUCZZRYCWU0441-99-38 09:27:008.3[facility] TxwmglcGEMGOABKOCPF7041-48-84 09:27:0027[facility] KerbfmtFMGEUZEDRDTI4467-84-69 09:27:001.13[facility] UPITANEWKTLY2583-01-74 09:27:0032[facility] OafgdvcOLREIUQFERJE4090-71-53 09:27:00 134[facility] EunvpohCTPFXUXALFNA7475-16-87 09:27:83076Dvzysjct [facility] CFTBKUXPZGGD2209-01-00 09:27:004.2[facility] XxykwvnVHKPWNZEGAPQ0325-41-26 09:27:96358Bglwykji NtdxamzIBTCSFPYDO1619-08-11 09:27:000.3[facility] VQDRZETNKU2690-22-68 09:27:003.8[facility] OkqbjrnYPZDJFQHRR8660-38-79 09:27:00 12.3[facility] VidaqsuWVWPUCFZJC3363-29-39 09:27:0020.3[facility] HermannHEMATOLOGY 2017-10-25 09:27:0063.3[facility] HnmodboPZGBKCHPJT1103-98-67 09:27:000.4[facility] GsdqgacAMLXPGEUYB1591-19-17 09:27:001.4[facility] KkrohusAZNSNLQHAW1959-57-01 09:27:002.3[facility] UmxwsgiJPFRWKERJL4857-35-19 09:27:007.0[facility] WLTDMACSFZ7016-34-48 09:27:0015.2[facility] YjurunrMAFVQZFYTK1640-99-86 09:27:00 33.7[facility] HddfsdjGRLMATNIWU0397-61-91 09:27:65493Rmyyunxf HermannHEMATOLOGY 2017-10-25 09:27:008.7[facility] QcrmukyLTDQVELEBP9826-85-07 09:27:0021.6[facility] FpfmdlhFFJWJWVQCN7133-76-00 09:27:007.3[facility] XskvvedXKMGYCDDKG4608-62-78 09:27:002.52[facility] XfzlbblPXOHHBINIQ0913-49-08 09:27:0085.6[facility] ZOLZAFKLIR5868-18-84 09:27:00 Test Item Value Reference Range Interpretation Comments MCH (test code = MCH) 28.8 pg 27.0-31.0 [facility] CmfpxtsGWIRRZLZTJ5334-35-61 09:27:0011.1[facility]annBLOOD BANK ZBWMYHW7551-78-97 17:10:00Negative (10/24/17 11:10 AM)[facility]BL[facility] B[facility] PKLILTX6469-28-38 16:11:00Product available (10/24/17 10:11 AM)[facility] KTBPXLJWAL3505-22-66 18:50:0087[facility] HermannCHEM KPIHL9022-18-42 14:09:000.4 [facility] HermannCHEM TSMDB5451-00-09 14:09:0087[facility] HermannCHEM PANEL 2017-10-20 14:09:009[facility] HermannCHEM BWIEF5238-54-73 14:09:0025[facility] HermannCHEM PWJUH6868-15-22 14:09:003.0[facility] HermannCHEM YCPIW8532-72-34 14:09:007.8[facility] HermannCHEM ATKLC3443-50-18 14:09:00 Test Item Value Reference Range Interpretation Comments B/C Ratio (test code = B/C Ratio) 18 1 6-25 [facility]annCHEM YLSSU8558-91-39 14:09:00 Test Item Value Reference Range Interpretation Comments A/G Ratio (test code = A/G Ratio) 0.6 1 0.7-1.6 [facility]annCHEM JWKXL1072-85-23 14:09:004.8[facility] HermannSPECIAL NMGZUOKDK5966-34-95 14:09:008.9[facility] VkxicnzLTFUGBVCPU3009-31-48 04:32:0031 [facility] DzmukytXEUKTBXZYY7348-84-79 04:32:0013.3[facility] HermannIMMUNOLOGY 2017-10-20 04:32:007.8[facility] LzauptmVRSOVKDHYR4259-72-32 04:32:003.74[facility] SpmdztfZRWATFVKLV5700-68-73 04:32:000.35[facility] BjtxwqiDKLNPGHFIM4378-75-52 04:32:001.09[facility] SijjvrtKHGSQZYOXP0037-07-90 04:32:004.5[facility] HOMJKJVVHD8035-17-59 04:32:001.13[facility] PvkptrbWSXYUEEBSI1999-89-52 04:32:00 14.0[facility] MfsoaclPGMXXOXANV2927-76-55 04:32:0019.0[facility] HermannIMMUNOLOGY 2017-10-20 04:32:0014.5[facility] FkhposwBDUUWYPDIX1330-66-48 04:32:001.48[facility] QiczkzkWNPMTZZWLI1879-45-59 04:32:0048.0[facility] HermannSPECIAL CHEMISTRY 2017-10-20 04:32:008.4[facility] CufjpjuKCQRWALEIS6553-37-26 22:49:00Negative *NA*(10/19/17 4:49 PM)[facility] FRTDWRY5040-56-07 22:46:00 Negative (10/19/17 4:46 PM)[facility] HermannCHEM WPSOR0181-37-91 22:45:001.1 [facility] RegionalVakvjmeWMTOZYIZTL8346-09-59 22:45:0012.4[facility] HermannHEMATOLOGY 2017-10-19 22:45:008.8[facility] BsxpdikHOLZIQIQYO9614-55-88 22:45:00 Test Item Value Reference Range Interpretation Comments Split Point Rapid (test code = Split 0.4 min Point Rapid) [facility] RegionalQhirfnvRKVIJQCMDK9014-56-92 22:45:00 Test Item Value Reference Range Interpretation Comments K-time Rapid (test code = K-time 0.8 min 0.6-2.3 Rapid) [facility] RegionalMvtaoggEEECHYVRFQ4470-00-41 22:45:00 Test Item Value Reference Range Interpretation Comments R-time Rapid (test code = R-time 0.6 min 0.4-0.7 Rapid) [facility] RegionalMvarmcuBNSOUGKELG1876-07-69 22:45:00 Test Item Value Reference Range Interpretation Comments Max Amplitude Rapid (test code = Max 71 mm 52-71 Amplitude Rapid) [facility] RegionalOsitcwoJGOOLTRMXQ7476-22-67 22:45:00 Test Item Value Reference Range Interpretation Comments Angle Rapid (test code = Angle 81 degrees 64-80 Rapid) [facility] RegionalPpwlgljWLKFOUHAOY4840-90-61 22:45:00 Test Item Value Reference Range Interpretation Comments ACT (TEG) Rapid (test code = ACT (TEG) 105 s 86-118 Rapid) [facility]skaTCXMMMCJVY3318-15-23 22:45:00 Test Item Value Reference Range Interpretation Comments PT (test code = PT) 13.9 s 12.0-14.7 [facility] ZipdrpxGYOWNVCFLE4196-09-12 22:45:00 Test Item Value Reference Range Interpretation Comments INR (test code = INR) 1.07 1 0.85-1.17 [facility] KpqybziTCOQTJFLNX8449-80-06 22:45:00 Test Item Value Reference Range Interpretation Comments PTT (test code = PTT) 28.3 s 22.9-35.8 [facility]annURINE AND VVROP4537-15-72 22:45:00None Seen (10/19/17 4:45 PM) [facility] FYJGE3881-17-40 22:45:00Negative (10/19/17 4:45 PM) [facility] ESOUM7292-45-35 22:45:00Negative (10/19/17 4:45 PM) [facility] CNBVK0094-44-28 22:45:000.2[facility]annUR[facility] AND ZANQH6283-93-02 22:45:00Trace *ABN*(10/19/17 4:45 PM)[facility] XEEYX9298-18-49 22:45:00Negative *NA*(10/19/17 4:45 PM)[facility] AND BOPQF0870-77-79 22:45:00Negative *NA*(10/19/17 4:45 PM)[facility]ann[facility] AND RLJAX1078-93-49 22:45:00Negative (10/19/17 4:45 PM)[facility] AND CJFMH8800-33-60 22:45:00>=1.030 *ABN*(10/19/17 4:45 PM)[facility] AND EWKQI0302-73-38 22:45:00Clear (10/19/17 4:45 PM)[facility] AND VCNQQ3719-93-14 22:45:00 Test Item Value Reference Range Interpretation Comments UA pH (test code = UA pH) 6.0 1 5.0-8.0 [facility]annUR[facility] AND GTHXI9318-94-22 22:45:00Yellow *NA*(10/19/17 4:45 PM) [facility]
[2020-12-19] MEDS ORDERED: SILVER NITRATE 1 APPL TOP ONE (19:53)
[2020-12-19] MEDS ORDERED: HYDROCODONE/APAP 5/325 MG TAB ONE (20:03)
--- NOTE | 2020-12-19 20:11 | EDPHYS ---
Physician Documentation [facility] Name: Jan Magana Age: 54 yrs Sex: Male : 1965 Arrival Date: 12/19/2020 Time: 18:39 Bed 27 Private MD: ED Physician Kwan Tellez HPI: 12/19 19:44 This 54 yrs old Male presents to ER via EMS with complaints of Wound Check. 7 19:44 Patient presents to ED for recheck of: surgical wound. The affected area is on the mh7 right hip. Previous treatment: The patient was initially treated 3 years ago, the care was rendered at [facility], Treatment type: The patient's original treatment included Right hip surgery. Right hip surgery about 3 years ago with subsequent surgery to area. States that his last surgery was 2 months ago. he has a wound Vac to area for the past few months.. Progress: The patient reports increased bleeding. Bleeding to right hip wound after changing the wound Vac dressing today. Denies any recent injuries, swelling, redness, or discharge. Denies any other complaints.. Historical: - Allergies: 18:44 Codeine; ss - PMHx: 18:44 Diabetes - NIDDM; Hypertension; kidney cancer; ss - PSHx: 18:44 kidney removal; cardiac stent; ss - Immunization history:: Adult Immunizations not up to date. - Social history:: Smoking status: Patient denies any tobacco usage or history of. ROS: 19:44 Constitutional: Negative for fever, chills, and weight loss, Eyes: Negative for injury, mh7 pain, redness, and discharge, ENT: Negative for injury, pain, and discharge, Neck: Negative for injury, pain, and swelling, Cardiovascular: Negative for chest pain, palpitations, and edema, Respiratory: Negative for shortness of breath, cough, wheezing, and pleuritic chest pain, Abdomen/GI: Negative for abdominal pain, nausea, vomiting, diarrhea, and constipation, Back: Negative for injury and pain, : Negative for injury, bleeding, discharge, and swelling, Neuro: Negative for headache, weakness, numbness, tingling, and seizure, Psych: Negative for depression, anxiety, suicide ideation, homicidal ideation, and hallucinations, Allergy/Immunology: Negative for hives, rash, and allergies, Endocrine: Negative for neck swelling, polydipsia, polyuria, polyphagia, and marked weight changes, Hematologic/Lymphatic: Negative for swollen nodes, abnormal bleeding, and unusual bruising. Exam: 19:44 Constitutional: This is a well developed, well nourished patient who is awake, alert, mh7 and in no acute distress. Head/Face: Normocephalic, atraumatic. Eyes: Pupils equal round and reactive to light, extra-ocular motions intact. Lids and lashes normal. Conjunctiva and sclera are non-icteric and not injected. Cornea within normal limits. Periorbital areas with no swelling, redness, or edema. Neck: Trachea midline, no thyromegaly or masses palpated, and no cervical lymphadenopathy. Supple, full range of motion without nuchal rigidity, or vertebral point tenderness. No Meningismus. Chest/axilla: Normal chest wall appearance and motion. Nontender with no deformity. No lesions are appreciated. Cardiovascular: Regular rate and rhythm with a normal S1 and S2. No gallops, murmurs, or rubs. Normal PMI, no JVD. No pulse deficits. Respiratory: Lungs have equal breath sounds bilaterally, clear to auscultation and percussion. No rales, rhonchi or wheezes noted. No increased work of breathing, no retractions or nasal flaring. Abdomen/GI: Soft, non-tender, with normal bowel sounds. No distension or tympany. No guarding or rebound. No evidence of tenderness throughout. Back: No spinal tenderness. No costovertebral tenderness. Full range of motion. 19:44 Neuro: Awake and alert, GCS 15, oriented to person, place, time, and situation. Cranial nerves II-XII grossly intact. Motor strength 5/5 in all extremities. Sensory grossly intact. Cerebellar exam normal. Normal gait. Psych: Awake, alert, with orientation to person, place and time. Behavior, mood, and affect are within normal limits. 19:44 Musculoskeletal/extremity: Extremities: noted in the right hip: surgical wound with clotted blood over small area of bleeding skin, ROM: intact in all extremities, Circulation is intact in all extremities. Pulses: are normal with no appreciated deficits, Perfusion: the patient is normally perfused throughout, Perfusion: the extremity is normally perfused throughout, Sensation intact. Compartment Syndrome exam of affected extremity: is normal. no pain, no numbness, no tingling, no sensation deficit, no palor, no weak pulses, Joints: the right hip displays surgical wound with small area of skin bleeding. 19:44 Skin: Wound recheck: clotted blood at superior aspect of right hip surgical wound with small underlying area of bleeding at skin visualized. Wound granulating well without erythema, swelling, warmth, induration, or discharge.. Vital Signs: 18:39 BP 158 / 104; Pulse 86; Resp 16; Temp 97.1; Pulse Ox 98% on R/A; Weight 124.74 kg; ss Height 5 ft. 11 in. (180.34 cm); Pain 2/10; 20:30 BP 144 / 88; Pulse 80; Resp 16; Pulse Ox 100% on R/A; vg1 18:39 Body Mass Index 38.35 (124.74 kg, 180.34 cm) ss Procedures: 21:11 Performed Cauterization of bleeding area of wound at superior aspect with Silver mh7 Nitrate.. cauterization of bleeding area of wound with Silver Nitrate. no active rebleeding after procedure. Patient tolerated well. Wound Vac dressing reapplied.. MDM: 20:08 Differential diagnosis: surgical wound bleeding, wound infection. Data reviewed: vital 7 signs, nurses notes, EMS record, old medical records. Data interpreted: Pulse oximetry: on room air is 98 %. Interpretation: normal. Counseling: I had a detailed discussion with the patient and/or guardian regarding: the historical points, exam findings, and any diagnostic results supporting the discharge/admit diagnosis, the presence of at least one elevated blood pressure reading (>120/80) during this emergency department visit, the need for outpatient follow up, wound care, to return to the emergency department if symptoms worsen or persist or if there are any questions or concerns that arise at home. Response to treatment: the patient's symptoms have resolved after treatment, the patient's blood pressure is in an acceptable range, mental status has returned to baseline, the patient no longer shows bradycardia, the patient is not short of breath, the patient is not tachycardic, the patient's pain is gone, the patient's temperature has normalized. 20:11 Patient medically screened. [facility] Administered Medications: 19:39 Drug: Silver Nitrate Applicators 1 application {Note: administered by Dr. Tellez.} Route: Topical; Site: affected area; 19:39 Drug: Silver Nitrate Applicators 1 application {Note: administered to wound by Dr. jimbo Tellez.} Route: Topical; Site: affected area; 19:40 Drug: Silver Nitrate Applicators 1 application {Note: administered by Dr. Tellez.} Route: Topical; Site: affected area; 19:48 Drug: Dr[place] (HYDROcodone-acetaminophen) 5 mg-325 mg 1 tabs Route: PO; Disposition: 12/19/20 20:11 Discharged to Home. Impression: Surgical Wound Bleed, Right Hip. - Condition is Stable. - Discharge Instructions: Wound Check, Wound Care. - Medication Reconciliation Form, Thank You Letter, Antibiotic Education, Prescription Opioid Use form. - Follow up: Private Physician; When: 1 - 2 days; Reason: Wound Recheck, Worsening of condition, Recheck today's complaints, Continuance of care, Re-evaluation by your physician. - Problem is new. - Symptoms have improved. Signatures: Rocío Nava RN RN ss Maye Kim RN RN vg1 Kwan Tellez MD MD mh7 Corrections: (The following items were deleted from the chart) 20:46 20:11 12/19/2020 20:11 Discharged to Home. Impression: Surgical Wound Bleed, Right Hip. vg1 Condition is Stable. Forms are Medication Reconciliation Form, Thank You Letter, Antibiotic Education, Prescription Opioid Use. Follow up: Private Physician; When: 1 - 2 days; Reason: Wound Recheck, Worsening of condition, Recheck today's complaints, Continuance of care, Re-evaluation by your physician. Problem is new. Symptoms have improved. mh7
--- NOTE | 2020-12-19 20:11 | ER ---
Nurse's Notes [facility] Name: Jan Magana Age: 54 yrs Sex: Male : 1965 Arrival Date: 12/19/2020 Time: 18:39 Bed 27 Private MD: Diagnosis: Surgical Wound Bleed, Right Hip Presentation: 12/19 18:39 Chief complaint: Patient states: Bleeding around wound vac that began 1 hour ago. Pt ss denies pain. Dressing placed by EMS en route to ED. Blood noted to be seeping through dressing. Coronavirus screen: Client denies travel out of the [place] in the last 14 days. Ebola Screen: Patient denies exposure to infectious person. Patient denies travel to an Ebola-affected area in the 21 days before illness onset. Initial Sepsis Screen: Does the patient meet any 2 criteria? No. Patient's initial sepsis screen is negative. Does the patient have a suspected source of infection? No. Patient's initial sepsis screen is negative. Risk Assessment: Do you want to hurt yourself or someone else? Patient reports no desire to harm self or others. Onset of symptoms was December 19, 2020. 18:39 Method Of Arrival: EMS: [facility] ss 18:39 Acuity: NOAM 3 ss Historical: - Allergies: 18:44 Codeine; ss - PMHx: 18:44 Diabetes - NIDDM; Hypertension; kidney cancer; ss - PSHx: 18:44 kidney removal; cardiac stent; ss - Immunization history:: Adult Immunizations not up to date. - Social history:: Smoking status: Patient denies any tobacco usage or history of. Screenin:39 Abuse screen: Denies threats or abuse. Denies injuries from another. Nutritional ss screening: No deficits noted. Tuberculosis screening: Never had TB. Fall Risk None identified. Assessment: 18:39 General: Appears in no apparent distress. comfortable, Behavior is calm, cooperative, ss Denies fever, feeling ill, fatigue, chills. General: Pt appears comfortable. Call light remains within reach. . Pain: Complains of pain in lateral aspect of right thigh Pain currently is 2 out of 10 on a pain scale. Neuro: Level of Consciousness is awake, alert, obeys commands, Oriented to person, place, time, situation, Speech is normal, Facial symmetry appears normal. Cardiovascular: Capillary refill < 3 seconds is brisk in bilateral fingers Patient's skin is warm and dry. Respiratory: Airway is patent Trachea midline Respiratory effort is even, unlabored, Respiratory pattern is regular, symmetrical. GI: Abdomen is round non-distended, Patient currently denies abdominal pain, diarrhea, nausea, vomiting. : No signs and/or symptoms were reported regarding the genitourinary system. EENT: Nares are clear. Derm: Skin is dry, Skin is pink, warm \T\ dry. normal. Derm: Wound noted right hip Wound is Wound vac noted to R hip/ thigh area. Pt reports that bleeding began about 1 hour ago. No active bleeding noted at this time. Blood clot noted to wound area. Also reports that he did not take his morning medications besides his pain medication. Musculoskeletal:. 19:42 Reassessment: Dr. Tellez at bedside. Removed clot from wound and located small area of ss bleeding. After using 3 silver nitrate sticks, bleeding has stopped for now. Awaiting for additional orders/ interventions. 20:30 Reassessment: Patient appears in no apparent distress at this time. Patient and/or vg1 family updated on plan of care and expected duration. Pain level reassessed. Patient is alert, oriented x 3, equal unlabored respirations, skin warm/dry/pink. Vital Signs: 18:39 BP 158 / 104; Pulse 86; Resp 16; Temp 97.1; Pulse Ox 98% on R/A; Weight 124.74 kg; ss Height 5 ft. 11 in. (180.34 cm); Pain 2/10; 20:30 BP 144 / 88; Pulse 80; Resp 16; Pulse Ox 100% on R/A; vg1 18:39 Body Mass Index 38.35 (124.74 kg, 180.34 cm) ED Course: 18:39 Patient arrived in ED. ss 18:39 Patient has correct armband on for positive identification. Placed in gown. Bed in low ss position. Call light in reach. Side rails up X2. Pulse ox on. NIBP on. Warm blanket given. 18:43 Triage completed. ss 18:45 Arm band placed on right wrist. ss 19:17 Kwan Tellez MD is Attending Physician. [facility] 20:11 Maye Kim, RN is Primary Nurse. vg1 20:44 No provider procedures requiring assistance completed. Patient did not have IV access vg1 during this emergency room visit. Administered Medications: 19:39 Drug: Silver Nitrate Applicators 1 application {Note: administered by Dr. Tellez.} Route: Topical; Site: affected area; 19:39 Drug: Silver Nitrate Applicators 1 application {Note: administered to wound by Dr. jimbo Tellez.} Route: Topical; Site: affected area; 19:40 Drug: Silver Nitrate Applicators 1 application {Note: administered by Dr. Tellez.} Route: Topical; Site: affected area; 19:48 Drug: [place] (HYDROcodone-acetaminophen) 5 mg-325 mg 1 tabs Route: PO; ss Outcome: 20:11 Discharge ordered by . [facility] 20:44 Discharged to home via wheelchair, with family. vg1 20:44 Condition: stable 20:44 Discharge instructions given to patient, Instructed on discharge instructions, follow up and referral plans. Demonstrated understanding of instructions, follow-up care. 20:46 Patient left the ED. 1 Signatures: Rocío Nava RN RN Maye Kim RN RN [facility] Kwan Tellez MD MD 7 Corrections: (The following items were deleted from the chart) 18:57 18:39 Acuity: NOAM 2 [facility]
[2020-12-19 21:32] VITALS: TEMP 97.1
[2020-12-19 21:33] VITALS: BP 144/88; O2SAT 100
== END 2020-12-19 20:46 | disposition home or self-care (01) ==
LOC: ER 18:38
DX: L76.22 Postprocedural hemorrhage of skin and subcutaneous tissue following other procedure (principal); Z96.641 Presence of right artificial hip joint; I10 Essential (primary) hypertension; Z85.528 Personal history of other malignant neoplasm of kidney; Z95.818 Presence of other cardiac implants and grafts; Z88.5 Allergy status to narcotic agent
CPT/HCPCS: 99283

== ENCOUNTER 2021-08-09 13:36 | Emergency (ER) | payer BC ==
--- OUTSIDE RECORDS SUMMARY | 2021-08-09 13:43 | XMS REPORT | Clinical Summary ---
:1965 Author Organization [facility] MD Domingo [facility] Address [address] [place] [address] Care Team Providers Name Role Phone Jose Alfredo Conte MD Primary Care Provider MD Ten Unavailable Olga Estrada MD Unavailable Lino Pettit MD Unavailable Dyllan Thomason MD Unavailable Allergies Active Allergy Reactions Severity Noted Date Comments Adhesive Dermatitis High 02/25/2020 Plastic only Tape-Silicones Codeine Other (See Comments) Medium 02/24/2019 Blackou t. Patient does not have a true anaphylactic re action. Medications Medication Sig Dispensed Refills Start Date End Date Status metFORMIN (GLUCOPHAGE) Take 1,000 mg by 0 01/27/2019 Active 500 mg tablet mouth twice daily. ezetimibe (Zetia) 10 Take 10 mg by 0 Active mg tablet mouth at bedtime. CARTIA XT 300 mg 24 hr Take 300 mg by 0 01/17/2019 Active capsule mouth daily. clopidogrel (PLAVIX) Take 75 mg by 0 02/02/2019 Active 75 mg tablet mouth daily. HUMULIN R U-500, CONC, Inject under the 0 10/15/2018 Active KWIKPEN 500 unit/mL (3 skin twice daily. mL) insulin pen 35 units in the morning and 15 units at dinner aspirin 81 mg EC Take 81 mg by 0 Active tablet mouth daily. cholecalciferol, Take 2,000 Units 0 Active vitamin D3, 2,000 unit by mouth twice capsule daily. Bacillus coagulans Take 1 capsule by 0 Active (PROBIOTIC, B. mouth daily. COAGULANS,) 10 billion cell cpDR multivit-mins/iron/fol Take 1 tablet by 0 Active ic/lycop (CENTRUM MEN mouth daily. ORAL) VASCEPA 1 gram cap Take 4 capsules by 0 11/05/2018 Active mouth daily. triamcinolone Apply topically to 454 g 0 07/04/2019 Active (KENALOG) 0.1% affected area(s) creamIndications: twice daily. Allergy to drug vit A/vit C/vit Take 1 tablet by 0 Active E/zinc/copper mouth daily. (PRESERVISION AREDS ORAL) nystatin (MYCOSTATIN) Apply topically to 30 g 1 0 Active 100,000 units/g affected area(s) 3 powderIndications: (three) times a Rash of groin day. Additional Information Patient not taking. Reason: Other, Informant: Self, Reported on 06/20/2021 hydrALAZINE (APRESOLINE) 50 mg 50 mg twice daily. 0 10/01/2019 Active tablet ascorbic acid, vitamin C, Take 1,000 mg by mouth 0 Active (vitamin C) 1000 mg tablet daily. FREESTYLE VERONICA 14 DAY SENSOR 0 11/14/2019 Active kit guanFACINE (TENEX) 2 mg tablet Take 1 mg by mouth twice 0 12/04/2019 Active daily. collagenase (Santyl) Apply topically to affected 30 g 1 0 02/25/2020 Active ointmentIndications: area(s) daily. Apply with Non-pressure chronic ulcer of saline moistened gauze to other part of left foot with ulcer on the left great toe fat layer exposed daily Additional Information Patient not taking. Reason: Other, Reported on 06/20/2021 flash glucose sensor FreeStyle Veronica 14 Day 0 Active (FreeStyle Veronica 14 Day Sensor kit Sensor) kit mirabegron (Myrbetriq) 50 mg Myrbetriq 50 mg 0 Active Tb24 tablet,extended release carvedilol (COREG) 25 mg 50 mg twice daily. 0 2019 Active tablet Takes 50 mg twice a day ondansetron (Zofran) 8 mg Take 1 tablet (8 mg) by 30 tablet 11 11/11/2020 Active tabletIndications: Malignant mouth every 8 (eight) neoplasm of left kidney, hours as needed for except renal pelvis nausea or vomiting. methocarbamol (ROBAXIN) 500 Take 500 mg by mouth 0 0 02/02/2021 Active mg tablet every 8 (eight) hours as needed. HYDROcodone-acetaminophen Take 1 tablet by mouth 90 tablet 0 0 02/10/2021 Active (NORCO) 5 mg-325 mg per every 6 (six) hours as tabletIndications: Malignant needed for moderate neoplasm of left kidney, pain. except renal pelvis Additional Information Patient not taking. Reason: Other, Reported on 06/20/2021 magnesium oxide 500 mg TAKE ONE 30 tablet 03/23/2021 Active tabletIndications: TABLET BY Malignant neoplasm of MOUTH DAILY left kidney, except renal pelvis everolimus, Take 1 tablet 28 tablet 03/24/2021 Act sandi antineoplastic, (5 mg) by (AFINITOR) 5 mg mouth daily. tabletIndications: Malignant neoplasm of left kidney, except renal pelvis levothyroxine (SYNTHROID, TAKE ONE 30 tablet 05/31/2021 Active LEVOTHROID) 125 mcg TABLET BY tabletIndications: Other MOUTH DAILY specified hypothyroidism traMADol (ULTRAM) 50 mg Take 50 mg by 0 Active tablet mouth every 4 (four) hours as needed. magnesium oxide 500 mg Take 1 tablet 30 tablet 10/17/2019 Discontinued tabletIndications: (500 mg) by Malignant neoplasm of mouth daily. left kidney, except renal pelvis ondansetron (Zofran) 8 mg Take 1 tablet 30 tablet 11 10/17/201911/11 Discontinued tabletIndications: (8 mg) ( Reorder) Malignant neoplasm of mouth every 8 left kidney, except renal (eight) hours pelvis as needed for nausea or vomiting. hydroCHLOROthiazide Take 1 tablet 30 tablet 01/09/202004/28 Discontinued (HYDRODIURIL) 12.5 mg (12.5 mg) (Therapy tabletIndications: mouth daily. completed) Malignant neoplasm of left kidney, except renal pelvis methenam/sod Take by mouth 0 09/30 Dis continued (Not phos/mblue/hyoscy (three) Ap plicable) (UROGESIC-BLUE ORAL) times a day. sulfamethoxazole-trimetho Take by mouth. 0 0 02/04 Discontinued (Not prim (BACTRIM DS) 800 Applicable) mg-160 mg per tablet levothyroxine (SYNTHROID, Take 1 tablet 30 tablet 11 04/16/202005/31 Discontinued LEVOTHROID) 125 mcg (125 mcg) by tabletIndications: Other mouth daily. specified hypothyroidism cabozantinib (Cabometyx) Take 1 tablet 30 tablet 11 06/28/202003/24 Discontinued 40 mg tabletIndications: (40 mg) by (Therapy Malignant neoplasm of mouth daily. completed) left kidney, except renal pelvis furosemide (Lasix) 20 mg Take 1 tablet 30 tablet 0 08/10/202011/11 Discontinued tabletIndications: (20 mg) by (Therapy Generalized edema mouth daily as completed) needed for edema (edema). meropenem (MERREM Infuse 0 06/20 Di scontinued (Not INTRAVENOUS) intravenously. Ap plicable) 3 x daily for at least another month ondansetron (ZOFRAN-ODT) Dissolve 1 30 tablet 11 09/30/2020 Discontinued 8 mg disintegrating tablet (8 mg) (Therapy tabletIndications: on the tongue completed) Malignant neoplasm of every 8 left kidney, except renal (eight) hours pelvis as needed for nausea. HYDROcodone-acetaminophen Take by mouth 0 10/18/202002/10 Discontinued (NORCO) 5 mg-325 mg per as needed. (Reorder) tablet heparin sod,porcine/0.9 % Infuse 0 05/28 5 Discontinued (Not NaCl (HEPARIN FLUSH intravenously. Applicable) INTRAVENOUS) DAPTOMYCIN INTRAVENOUS Infuse 0 06/20 Discontinued (Not intravenously. Appli cable) Has about 1 month left fluconazole (DIFLUCAN) Take 100 mg by 0 Discontinued (Not 100 mg tablet mouth daily. Blanca licable) minocycline (MINOCIN) 100 Take 100 mg by 0 04/28 Discontinued (Not mg capsule mouth. Applicabl e) lidocaine 2 % solution APPLY 5 0 03/07/202106/20 Discontinued (Not MINUTES BEFORE Appli cable) ACETIC ACID ON WOUND acetic acid 0.25% USE 0 03/02/202106/20 D iscontinued (Not irrigation DIRECTED FOR Applic able) WOUND CARE ONCE DAILY mupirocin (BACTROBAN) 2% Apply 22 g 0 03/16/2021 09/0 2 Discontinued ointmentIndications: topically to (Therapy Non-pressure chronic affected completed) ulcer of other part of area(s) twice left foot with fat layer daily. 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/antiplatele ts 05/27/2020 Secondary malignant neoplasm of bone 05/27/2020 Secondary malignant neoplasm of gastrointestinal tract 05/27/2020 Hematochezia 01/28/2020 Overview: Added automatically from request for bianka hawkins [id number] Other secondary hypertension 08/15/2019 Type 2 diabetes mellitus without complication 08/15/20 Infection following a procedure, superficial incisiona l surgical site 02/25/2019 Malignant neoplasm of left kidney, except renal pelvis 02/24/2019 Renal cell carcinoma 02/19/2019 Coronary arteriosclerosis 10/15/2017 Encounters Date Type Specialty Care Team Description 06/27/2021 Orders Only Radiology Lashell Moreno MD 06/21/2021 Consult Pulmonology Ralph Lofton MD Secondary mal ignant neoplasm of left lung (Primary Dx); Renal cell carc inoma <Unspecified side> 06/21/2021 Travel 06/20/2021 Office Visit Genitourinary Jose Alfredo Conte, Type 2 diab etes mellitus without complication (Primary Dx); Oncology Malignant neopl asm of unspecified kidney, except renal pelvis; Secondary malig nant neoplasm of gastrointestinal tract; Other secondary hypertension; Secondary malig nant neoplasm of bone 06/20/2021 Hospital Encounter Lab Malignant neoplasm of unspecified kid duncan, except renal pe lvis 06/20/2021 Travel 06/07/2021 Documentation Physical Therapy MaxwellAyanna Quiles, PT 06/06/2021 Office Visit Genitourinary Jose Alfredo Conte, Malignant n eoplasm of unspecified kidney, except renal pelvis (Primary Dx); Oncology Type 2 diabetes mellitus without complic ation; Adriazola, Patty, Secondary ma lignant neoplasm of gastrointestinal tract; 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 Other secondary hypertension; Secondary malig nant neoplasm of bone; Malignant neopl asm of left kidney, except renal pelvis; Serum creatinin e raised; 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; Other proteinur ia; Secondary malig nant neoplasm of liver and intrahepatic bile duct 06/06/2021 Travel 06/05/2021 Orders Only Genitourinary Adriazola, Patty, Renal cell carcinoma Oncology 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 <Unspecified si de> (Primary Dx) 06/03/2021 Hospital Encounter Radiology Adriazola, Patty, Malign ant neoplasm of 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 unspecified kid duncan, except renal pe lvis 06/03/2021 Ancillary Procedure Radiology Adriazola, Patty, 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 06/03/2021 Hospital Encounter Lab Adriazola, Patty, Malign ant neoplasm of 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 unspecified kid duncan, except renal pe lvis 06/03/2021 Ancillary Procedure Radiology Adriazola, Patty, Malig nant neoplasm of 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 unspecified kid duncan, except renal pe lvis 06/03/2021 Travel 06/01/2021 Orders Only Genitourinary Adriazola, Patty, 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 05/31/2021 Refill Genitourinary Jose Alfredo Conte, Other speci fied Oncology hypothyroidism 05/11/2021 Documentation Gastroenterology, Danie, Claudette Odom, Hepatology & RN Nutrition 04/29/2021 Documentation Physical Therapy Ayanna Randolph, PT 04/28/2021 Hospital Encounter Infusion Services AdriazolPatty patterson, M alignant neoplasm of 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 unspecified kidney, Tejal, Edifia except renal pe lvis DOMINGA Bernardo 04/28/2021 Office Visit Genitourinary Jose Alfredo Conte, Malignant n eoplasm of Oncology MD unspecified kid duncan, except renal pe lvis 04/28/2021 Hospital Encounter Lab Adriazola, Patty, Malign ant neoplasm of 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 unspecified kid duncan, except renal pe lvis 04/28/2021 Orders Only Radiology Panchito Dickerson PA 04/28/2021 Travel 04/27/2021 Orders Only Genitourinary Adriazola, Patty, Malignant n eoplasm of Oncology 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 unspecified kid duncan, except renal pe lvis (Primary Dx) 04/18/2021 Telephone Genitourinary Sergio, Oncology Ni Ragland RN 03/30/2021 Office Visit Orthopaedics Maggie Morris, 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 (Primary Dx); DPM Type 2 diabetes mellitus with diabetic neuropathy, not otherwise specified 03/30/2021 Travel 03/24/2021 Office Visit Genitourinary Jose Alfredo Conte, Moderate pr otein-calorie malnutrition (Primary Dx); Oncology Malignant neopl asm of left kidney, except renal pelvis; Type 2 diabetes mellitus without complication; Secondary malig nant neoplasm of bone; Charct's join t, left ankle and foot; Charct's join t, right ankle and foot; Infection follo wing a procedure, superficial incisional surgical site, sequela 03/24/2021 Orders Only Genitourinary Ni Grace, Malignant n eoplasm of Oncology [facility] left kidney, ex cept renal pelvis (P rimary Dx) 03/24/2021 Travel 03/23/2021 Ancillary Procedure Radiology Elizabetha Patty, Malig nant neoplasm of 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 left kidney, ex cept renal pelvis 03/23/2021 Ancillary Procedure Radiology Jaye Patty, 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 03/23/2021 Hospital Encounter Lab Elizabetha Patty, Malign ant neoplasm of 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 left kidney, ex cept renal pelvis 03/23/2021 Ancillary Procedure Radiology Adriazola Patty, Malig nant neoplasm of 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 left kidney, ex cept renal pelvis 03/23/2021 Travel 03/22/2021 Refill Genitourinary Jose Alfredo Conte, Malignant n eoplasm of Oncology left kidney, ex cept renal pelvis 03/17/2021 Documentation Physical Therapy Ayanna Randolph, PT 03/16/2021 Hospital Encounter Radiology Maggie Morris, Non-pres sure chronic DPM ulcer of other part of left foot wi th necrosis of bon e 03/16/2021 Office Visit Orthopaedics Maggie Morris, 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 (Primary Dx); DPM Non-pressure ch ronic ulcer of other part of left foot with fat layer exposed; Type 2 diabetes mellitus without complication 03/16/2021 Travel 02/10/2021 Office Visit Genitourinary Jose Alfredo Conte, Malignant n eoplasm of left kidney, except renal pelvis (Primary Dx); Oncology MD Secondary malignant neoplasm of gastroin testinal tract; Adriazola Patty, Type 2 diabe kelly mellitus without complication; 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 Other secondary hypertension; Secondary malig nant neoplasm of bone; Moderate protei n-calorie malnutrition; Elevation of le vels of alanine transaminase (ALT); Other complicat ions of procedures, not elsewhere classified, sequela 02/10/2021 Travel 02/09/2021 Hospital Encounter Lab Marazolleonardo Patty, Malign ant neoplasm of 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 left kidney, ex cept renal pelvis 02/08/2021 Telemedicine GastroenterNaldo leger Ethan Abnormal level of Hepatology & DTorrie, other serum enz yme Nutrition 02/02/2021 Hospital Encounter Lab David Hitchcock Abnormal level of MD Ilda other serum enz yme 02/02/2021 Office Visit Orthopaedics Maggie Morris, Non-pressure c hronic ulcer of other part of left foot with fat layer exposed (Primary Dx); DPM Diabetic periph eral neuropathy 02/02/2021 Travel 02/01/2021 Telemedicine Nephrology Evette Gomez, Generalized edema 01/31/2021 Telephone Nephrology Oswaldo, Appointment Walt B, RN 12/30/2020 Office Visit Genitourinary Jose Alfredo Conte, Malignant n eoplasm of left kidney, except renal pelvis (Primary Dx); Oncology Secondary malig nant neoplasm of gastrointestinal tract; Type 2 diabetes mellitus without complication; Other secondary hypertension; Secondary malig nant neoplasm of bone; Elevation of le vels of alanine transaminase (ALT); Infection follo wing a procedure, superficial incisional surgical site, sequela; Moderate protei n-calorie malnutrition 12/30/2020 Travel 12/29/2020 Ancillary Procedure Radiology Adriazola, Patty, 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 12/29/2020 Ancillary Procedure Radiology Adriazola, Patty, Malig nant neoplasm of 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 left kidney, ex cept renal pelvis 12/29/2020 Ancillary Procedure Radiology Adriazola, Patty, Malig nant neoplasm of 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 left kidney, ex cept renal pelvis 12/29/2020 Travel 12/06/2020 Office Visit GastroenterNaldo leger Ethan Abnormal level of Hepatology & DTorrie, other serum enz yme Nutrition 12/06/2020 Travel 12/05/2020 Immunization Infectious Diseases Nicki Soto SARS -CoV-2 vaccination (Pr imary Dx) 12/05/2020 Hospital Encounter Lab Radha Blood Abnormal level of DAISY Brooks other serum enz yme 12/05/2020 Travel 11/24/2020 Office Visit Orthopaedics Maggie Morris, Non-pressure c hronic ulcer of other part of left foot with fat layer exposed (Primary Dx); DPM Type 2 diabetes mellitus without complication 11/24/2020 Travel 11/14/2020 Immunization Infectious Diseases Nicki Soto, SARS -CoV-2 vaccination (Pr imary Dx) 11/14/2020 Travel 11/11/2020 Office Visit Genitourinary Adriazola, Patty, Malignant n eoplasm of left kidney, except renal pelvis (Primary Dx); Oncology 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 Secondary malig nant neoplasm of gastrointestinal tract; Type 2 diabetes mellitus without complication; Other secondary hypertension; Secondary malig nant neoplasm of bone; Injury, unspeci fied, sequela; Liver enzymes a bnormal 11/11/2020 Hospital Encounter Lab Jose Alfredo Conte, Malign ant neoplasm of MD left kidney, ex cept renal pelvis 11/11/2020 Travel 10/27/2020 Office Visit Orthopaedics Maggie Morris, Non-pressure c hronic ulcer of other part of left foot with fat layer exposed (Primary Dx); DPM Type 2 diabetes mellitus with diabetic neuropathy, not otherwise specified 10/27/2020 Travel 10/26/2020 Telemedicine Nephrology Evette Gomez, Generalized edema 09/30/2020 Office Visit Dermatology Krish Mendez MD Neuropathic ulcer (Primary Dx); Malignant neopl asm of left kidney, except renal pelvis; Stasis dermatit is 09/30/2020 Office Visit Genitourinary Jose Alfredo Conte, Anemia in n eoplastic disease (Primary Dx); Oncology Malignant neopl asm of left kidney, except renal pelvis; Infection follo wing a procedure, superficial incisional surgical site, sequela; Secondary malig nant neoplasm of bone; Elevated liver enzymes level; Type 2 diabetes mellitus without complication; Diabetes mellit us due to underlying condition with foot ulcer; Charct's join t, left ankle and foot; Charct's join t, right ankle and foot 09/30/2020 Travel 09/29/2020 Ancillary Procedure Radiology Jose Alfredo Conte, Malig nant neoplasm of MD left kidney, ex cept renal pelvis 09/29/2020 Ancillary Procedure Radiology Jose Alfredo Conte MD 09/29/2020 Ancillary Procedure Radiology Maggie Morris, DPM 09/29/2020 Hospital Encounter Lab Jose Alfredo Conte, Genera lized edema; Malignant neopl asm of left kidney, except renal pelvis 09/29/2020 Ancillary Procedure Radiology Jose Alfredo Conte, Victorina nant neoplasm of MD left kidney, ex cept renal pelvis 09/29/2020 Hospital Encounter Physical Therapy Jose Alfredo Conte, Ot her lymphedema (Primary Dx); Malignant neoplasm of left kidney, excep t renal pelvis NicholeDanw daniels, PT 09/29/2020 Travel 09/23/2020 Travel 09/23/2020 Orders Only Infectious Diseases Nicki Soto, SARS -CoV-2 MD vaccination 09/17/2020 Telephone Genitourinary Harry, Oncology Bonnie Sanchez RN 09/16/2020 Telephone Genitourinary Jose Alfredo Conte, Oncology 09/10/2020 Orders Only Gastroenterology, David Hitchcock Abnormal level of Hepatology & D., other serum enz yme Nutrition (Primary Dx) 09/09/2020 Telephone Genitourinary Jose Alfredo Conte, Oncology 09/09/2020 Documentation Wound Ostomy Jannie Perez, DOMINGA 09/09/2020 Orders Only Genitourinary Adriazola, Patty, Elevated li javed Oncology 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 enzymes level (Primary Dx) 09/08/2020 Hospital Encounter Radiology Maggie Morris, Non-pres sure chronic DPM ulcer of other part of left foot wi th fat layer exposed 09/08/2020 Office Visit Orthopaedics Maggie Morris, Non-pressure c hronic ulcer of other part of left foot with fat layer exposed (Primary Dx); DPM Type 2 diabetes mellitus without complication 09/08/2020 Travel 09/06/2020 Anesthesia Event Radiology Edwina Guthrie, DOMINGA 09/06/2020 Hospital Encounter Radiology David Hitchcock Abnormal level of other serum enzyme; MD Ilda Liver function tests abnormal Getachew Flores MD 09/06/2020 Travel 09/03/2020 Clinical Support Infectious Diseases Nori Scruggs, Luba uspected COVID-19 PA (Primary Dx) Gladys Beth RN 09/03/2020 Hospital Encounter Radiology Jose Alfredo Conte, Liver function tests abnormal (Primary Dx); Malignant neoplasm of left kidney, excep t renal pelvis; Nori Scruggs, Other second ministerio hypertension; PA Type 2 diabetes mellitus without complication; History of anti platelet agent therapy; Stented coronar y artery 09/03/2020 Travel 08/31/2020 Orders Only Radiology Nori Scruggs, PA 08/26/2020 Office Visit Genitourinary Jose Alfredo Conte, Secondary m alignant neoplasm of bone (Primary Dx); Oncology Malignant neopl asm of left kidney, except renal pelvis; Infection follo wing a procedure, superficial incisional surgical site, sequela; 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; Type 2 diabetes mellitus without complication; Other secondary hypertension; Generalized yanna ma; Secondary malig nant neoplasm of gastrointestinal tract; Renal insuffici ency; Elevated liver enzymes level; Diabetes mellit us due to underlying condition with foot ulcer 08/26/2020 Hospital Encounter Lab Adriazola, Patty, Malign ant neoplasm of 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 left kidney, ex cept renal pelvis 08/26/2020 Travel 08/25/2020 Orders Only Radiology Pauline Melara, 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 08/25/2020 Orders Only GastroenterologyNaldo Ethan Abnormal level of Hepatology & D., other serum enz yme Nutrition (Primary Dx) 08/10/2020 Office Visit Nephrology Evette Gomez, Generalized edema (Primary Dx); Malignant neopl asm of left kidney, except renal pelvis 08/10/2020 Travel after 08/09/2020 Immunizations Name Administration Dates Next Due Pfizer SARS-CoV-2 Vaccination 12/05/2020, 11/14/2020 Surgical History Surgery Date Site/Laterality Comments NEPHRECTOMY 08/27/2012 - Left 09/26/2012 FEMUR FRACTURE SURGERY 10/24/2017 Right REVISION PROSTHESIS 12/12/2018 Right DISTAL FEMUR REVISION PROSTHESIS 01/02/2019 Right DISTAL FEMUR CORONARY ANGIOPLASTY 07/27/2016 - WITH STENT PLACEMENT 08/26/2016 DC EGD TRANSORAL BIOPSY 02/20/2020 Esophagus/N/A Procedur e: UPPER SINGLE/MULTIPLE GASTROINTESTINAL ENDOSCOPY OF ESOPHAGUS, ST OMACH, AND DUODENUM WITH BI OPSY; Surgeon: Guerita Ng MD; Location: MAIN E NDOSCOPY; Service: GASTROE NTEROLOGY DC COLONOSCOPY FLX DX 02/20/2020 N/A Procedure: DIAGNOSTIC W/COLLJ SPEC WHEN PFRMD FLEXIBLE COLONOSCOPY PROXIMAL TO SPLE JOSE FLEXURE; Surgeon: uGerita Ng MD; Location: MAIN E NDOSCOPY; Service: GASTROE NTEROLOGY DC EGD TRANSORAL CONTROL 04/15/2020 N/A Procedu re: UPPER BLEEDING ANY METHOD GASTROINTEST INAL ENDOSCOPY OF ESOPHAGUS, ST OMACH, AND DUODENUM WITH CO NTROL OF BLEEDING; Surge on: Guerita Ng MD; Loca tion: MAIN ENDOSCOPY; Serv ice: GASTROENTEROLOGY Medical History Medical History Date Comments Hypertension 2003 Diabetes mellitus 1995 Kidney cancer 07/2012 Charcot arthropathy of midfoot 08/2016 H/O cardiac surgery 07/2016 with stent placement Deep venous thrombosis 09/2017 RLE Coronary arteriosclerosis Family History Medical History Relation Name Comments Diabetes Father Hyperlipidemia Father Hypertension Father Lung cancer Maternal Grandfather Diabetes Mother Colon cancer Paternal Grandmother Relation Name Status Comments Brother Alive Father Alive Maternal Grandfather Mother Alive Paternal Grandmother Sister Alive Social History Tobacco Use Types Packs/Day Years Used Date Never Smoker Smokeless Tobacco: Never Used Alcohol Use Standard Drinks/Week Comments Never 0 (1 standard drink = 0.6 oz pure alcoho l) Alcohol Habits Answer Date Recorded How often do you have a drink containing alcohol? Never 02/24/2019 How many drinks containing alcohol do you have on a typical Not asked day when you are drinking? How often do you have six or more drinks on one occasion? No t asked Comment: Not asked Sex Assigned at Date Recorded Not on file Job Start Date Occupation Industry Not on file Not on file Not on file Obstetrics History Last Filed Vital Signs Vital Sign Reading Time Taken Comments Blood Pressure 116/72 06/21/2021 9:13 AM CDT Pulse 77 06/21/2021 9:13 AM CDT Temperature 36.5 C (97.7 F) 06/21/2021 9:13 AM CDT Respiratory Rate 16 06/21/2021 9:13 AM CDT Oxygen Saturation 97% 06/21/2021 9:13 AM CDT Inhaled Oxygen Concentration - - Weight 96.8 kg (213 lb 6.5 oz) 06/20/2021 2:23 PM CDT Height 180.5 cm (5' 11.06") 06/06/2021 10:53 AM CDT Body Mass Index 29.71 06/06/2021 10:53 AM CDT Plan of Treatment Date Type Specialty Care Team Description 08/24/2021 Appointment Lab Jose Alfredo Conte MD [address] [place] [address] (Wo rk) 08/24/2021 Ancillary Procedure Radiology Jose Alfredo Conte MD [address] [place] [address] (Wo rk) 08/24/2021 Ancillary Procedure Radiology Jose Alfredo Conte MD [address] [place] [address] (Wo rk) 08/24/2021 Ancillary Procedure Radiology Jose Alfredo Conte MD [address] [place] [address] (Wo rk) 08/24/2021 Ancillary Procedure Radiology Jose Alfredo Conte MD [address] [place] [address] (Wo rk) 08/25/2021 Office Visit Genitourinary Oncology Kimmy Conte MD [address] [place] [address] (Wo rk) Health Maintenance Due Date Last Done Comments COVID-19 Vaccination (3 - Pfizer risk 01/02/2021 12/05/2020 , 11/14/2020 4-dose series) Implants Implanted Type Area Group President Device Shelf Expiration Model / Identifier Date Serial / Lot [employer] Implant Description: Right hip to knee metal clarita Stent Procedures Procedure Name Priority Date/Time Associated Comments Diagnosis URINALYSIS MICROSCOPIC Routine 06/20/2021 2:13 R esults for this PM CDT procedure are i n the results section. MANUAL DIFFERENTIAL Routine 06/20/2021 2:13 Malignant neoplas m Results for this PM CDT of unspecified procedure are in kidney, except the results renal pelvis section. Results CBC Routine 06/20/2021 2:13 Malignant neoplasm Resul ts for this PM CDT of unspecified procedure are in kidney, except the results renal pelvis section. PROTEIN / CREATININE Routine 06/20/2021 2:13 Malignant neopla sm Results for this RATIO URINE PM CDT of unspecified procedure are in kidney, except the results renal pelvis section. URINALYSIS WITH Routine 06/20/2021 2:13 Malignant neoplasm Re sults for this MICROSCOPIC IF INDICATED PM CDT of unspecified p rocedure are in kidney, except the results renal pelvis section. SEDIMENTATION RATE Routine 06/20/2021 2:13 Malignant neoplasm Results for this NON-AUTOMATED PM CDT of unspecified procedure ar e in kidney, except the results renal pelvis section. C REACTIVE PROTEIN Routine 06/20/2021 2:13 Malignant neoplasm Results for this PM CDT of unspecified procedure are in kidney, except the results renal pelvis section. COMPLETE BLOOD COUNT W/ Routine 06/20/2021 2:13 Malignant joellen plasm DIFFERENTIAL PM CDT of unspecified kidney, except renal pelvis FRACTIONATED BILIRUBIN Routine 06/20/2021 1:40 Malignant neop lasm Results for this PM CDT of unspecified procedure are in kidney, except the results renal pelvis section. TOTAL PROTEIN Routine 06/20/2021 1:40 Malignant neoplasm Resu lts for this PM CDT of unspecified procedure are in kidney, except the results renal pelvis section. ASPARTATE Routine 06/20/2021 1:40 Malignant neoplasm Resul ts for this AMINOTRANSFERASE PM CDT of unspecified procedure are in kidney, except the results renal pelvis section. ALANINE AMINOTRANSFERASE Routine 06/20/2021 1:40 Malignant ne oplasm Results for this PM CDT of unspecified procedure are in kidney, except the results renal pelvis section. ALKALINE PHOSPHATASE Routine 06/20/2021 1:40 Malignant neopla sm Results for this PM CDT of unspecified procedure are in kidney, except the results renal pelvis section. ALBUMIN LEVEL Routine 06/20/2021 1:40 Malignant neoplasm Resu lts for this PM CDT of unspecified procedure are in kidney, except the results renal pelvis section. CALCIUM LEVEL TOTAL Routine 06/20/2021 1:40 Malignant neoplas m Results for this PM CDT of unspecified procedure are in kidney, except the results renal pelvis section. .GLOMERULAR FILTRATION Routine 06/20/2021 1:40 Malignant neop lasm Results for this RATE PM CDT of unspecified procedure are in kidney, except the results renal pelvis section. SERUM CREATININE Routine 06/20/2021 1:40 Malignant neoplasm R esults for this PM CDT of unspecified procedure are in kidney, except the results renal pelvis section. ELECTROLYTE PANEL Routine 06/20/2021 1:40 Malignant neoplasm Results for this PM CDT of unspecified procedure are in kidney, except the results renal pelvis section. BLOOD UREA NITROGEN Routine 06/20/2021 1:40 Malignant neoplas m Results for this PM CDT of unspecified procedure are in kidney, except the results renal pelvis section. GLUCOSE LEVEL Routine 06/20/2021 1:40 Malignant neoplasm Resu lts for this PM CDT of unspecified procedure are in kidney, except the results renal pelvis section. FREE THYROXINE Routine 06/20/2021 1:40 Malignant neoplasm Res ults for this PM CDT of unspecified procedure are in kidney, except the results renal pelvis section. THYROID STIMULATING Routine 06/20/2021 1:40 Malignant neoplas m Results for this HORMONE PM CDT of unspecified procedure are in kidney, except the results renal pelvis section. PHOSPHORUS LEVEL Routine 06/20/2021 1:40 Malignant neoplasm R esults for this PM CDT of unspecified procedure are in kidney, except the results renal pelvis section. MAGNESIUM LEVEL Routine 06/20/2021 1:40 Malignant neoplasm Re sults for this PM CDT of unspecified procedure are in kidney, except the results renal pelvis section. LACTATE DEHYDROGENASE Routine 06/20/2021 1:40 Malignant neopl asm Results for this PM CDT of unspecified procedure are in kidney, except the results renal pelvis section. COMPREHENSIVE METABOLIC Routine 06/20/2021 1:40 Malignant joellen plasm PANEL PM CDT of unspecified kidney, except renal pelvis POC GLUCOSE SCREEN Routine 06/03/2021 2:54 Resul ts for this PM CDT procedure are i n the results section. CT CHEST ABDOMEN PELVIS Routine 06/03/2021 2:45 Malignant joellen plasm Results for this W CONTRAST PM CDT of unspecified procedure are in kidney, except the results renal pelvis section. NM BONE SCAN WHOLE BODY Routine 06/03/2021 12:37 Malignant joellen plasm Results for this PM CDT of unspecified procedure are in kidney, except the results renal pelvis section. URINALYSIS MICROSCOPIC Routine 06/03/2021 10:53 R esults for this AM CDT procedure are i n the results section. PROTEIN / CREATININE Routine 06/03/2021 10:53 Malignant neopla sm Results for this RATIO URINE AM CDT of unspecified procedure are in kidney, except the results renal pelvis section. URINALYSIS WITH Routine 06/03/2021 10:53 Malignant neoplasm Re sults for this MICROSCOPIC IF INDICATED AM CDT of unspecified p rocedure are in kidney, except the results renal pelvis section. TMP INTERPRETATION Routine 06/03/2021 10:43 Resul ts for this ANTIBODY SCREEN NEGATIVE AM CDT pro cedure are in the results section. CLOT EXPIRATION DATE Routine 06/03/2021 10:43 Res ults for this AM CDT procedure are i n the results section. ANTIBODY SCREEN Routine 06/03/2021 10:43 Malignant neoplasm Re sults for this AM CDT of unspecified procedure are in kidney, except the results renal pelvis section. ABORH Routine 06/03/2021 10:43 Malignant neoplasm Resul ts for this AM CDT of unspecified procedure are in kidney, except the results renal pelvis section. FRACTIONATED BILIRUBIN Routine 06/03/2021 10:43 Malignant neop lasm Results for this AM CDT of unspecified procedure are in kidney, except the results renal pelvis section. TOTAL PROTEIN Routine 06/03/2021 10:43 Malignant neoplasm Resu lts for this AM CDT of unspecified procedure are in kidney, except the results renal pelvis section. ASPARTATE Routine 06/03/2021 10:43 Malignant neoplasm Resul ts for this AMINOTRANSFERASE AM CDT of unspecified procedure are in kidney, except the results renal pelvis section. ALANINE AMINOTRANSFERASE Routine 06/03/2021 10:43 Malignant ne oplasm Results for this AM CDT of unspecified procedure are in kidney, except the results renal pelvis section. ALKALINE PHOSPHATASE Routine 06/03/2021 10:43 Malignant neopla sm Results for this AM CDT of unspecified procedure are in kidney, except the results renal pelvis section. ALBUMIN LEVEL Routine 06/03/2021 10:43 Malignant neoplasm Resu lts for this AM CDT of unspecified procedure are in kidney, except the results renal pelvis section. CALCIUM LEVEL TOTAL Routine 06/03/2021 10:43 Malignant neoplas m Results for this AM CDT of unspecified procedure are in kidney, except the results renal pelvis section. .GLOMERULAR FILTRATION Routine 06/03/2021 10:43 Malignant neop lasm Results for this RATE AM CDT of unspecified procedure are in kidney, except the results renal pelvis section. SERUM CREATININE Routine 06/03/2021 10:43 Malignant neoplasm R esults for this AM CDT of unspecified procedure are in kidney, except the results renal pelvis section. ELECTROLYTE PANEL Routine 06/03/2021 10:43 Malignant neoplasm Results for this AM CDT of unspecified procedure are in kidney, except the results renal pelvis section. BLOOD UREA NITROGEN Routine 06/03/2021 10:43 Malignant neoplas m Results for this AM CDT of unspecified procedure are in kidney, except the results renal pelvis section. GLUCOSE LEVEL Routine 06/03/2021 10:43 Malignant neoplasm Resu lts for this AM CDT of unspecified procedure are in kidney, except the results renal pelvis section. MANUAL DIFFERENTIAL Routine 06/03/2021 10:43 Malignant neoplas m Results for this AM CDT of unspecified procedure are in kidney, except the results renal pelvis section. Results CBC Routine 06/03/2021 10:43 Malignant neoplasm Resul ts for this AM CDT of unspecified procedure are in kidney, except the results renal pelvis section. TYPE AND SCREEN Routine 06/03/2021 10:43 Malignant neoplasm AM CDT of unspecified kidney, except renal pelvis SEDIMENTATION RATE Routine 06/03/2021 10:43 Malignant neoplasm Results for this NON-AUTOMATED AM CDT of unspecified procedure ar e in kidney, except the results renal pelvis section. C REACTIVE PROTEIN Routine 06/03/2021 10:43 Malignant neoplasm Results for this AM CDT of unspecified procedure are in kidney, except the results renal pelvis section. THYROID STIMULATING Routine 06/03/2021 10:43 Malignant neoplas m Results for this HORMONE AM CDT of unspecified procedure are in kidney, except the results renal pelvis section. FREE THYROXINE Routine 06/03/2021 10:43 Malignant neoplasm Res ults for this AM CDT of unspecified procedure are in kidney, except the results renal pelvis section. PHOSPHORUS LEVEL Routine 06/03/2021 10:43 Malignant neoplasm R esults for this AM CDT of unspecified procedure are in kidney, except the results renal pelvis section. MAGNESIUM LEVEL Routine 06/03/2021 10:43 Malignant neoplasm Re sults for this AM CDT of unspecified procedure are in kidney, except the results renal pelvis section. LACTATE DEHYDROGENASE Routine 06/03/2021 10:43 Malignant neopl asm Results for this AM CDT of unspecified procedure are in kidney, except the results renal pelvis section. COMPREHENSIVE METABOLIC Routine 06/03/2021 10:43 Malignant joellen plasm PANEL AM CDT of unspecified kidney, except renal pelvis COMPLETE BLOOD COUNT W/ Routine 06/03/2021 10:43 Malignant joellen plasm DIFFERENTIAL AM CDT of unspecified kidney, except renal pelvis TRANSFUSE RED BLOOD Routine 04/28/2021 8:40 Malignant neoplas m CELLS PM CDT of unspecified kidney, except renal pelvis TMP CROSSMATCH Routine 04/28/2021 1:48 Results f or this INTERPRETATION PM CDT procedure are in the results section. TMP INTERPRETATION Routine 04/28/2021 1:48 Resul ts for this ANTIBODY SCREEN NEGATIVE PM CDT pro cedure are in the results section. CLOT EXPIRATION DATE Routine 04/28/2021 1:48 Res ults for this PM CDT procedure are i n the results section. URINALYSIS MICROSCOPIC Routine 04/28/2021 1:48 R esults for this PM CDT procedure are i n the results section. ANTIBODY SCREEN Routine 04/28/2021 1:48 Malignant neoplasm Re sults for this PM CDT of unspecified procedure are in kidney, except the results renal pelvis section. ABORH Routine 04/28/2021 1:48 Malignant neoplasm Resul ts for this PM CDT of unspecified procedure are in kidney, except the results renal pelvis section. MANUAL DIFFERENTIAL Routine 04/28/2021 1:48 Malignant neoplas m Results for this PM CDT of unspecified procedure are in kidney, except the results renal pelvis section. Results CBC Routine 04/28/2021 1:48 Malignant neoplasm Resul ts for this PM CDT of unspecified procedure are in kidney, except the results renal pelvis section. FRACTIONATED BILIRUBIN Routine 04/28/2021 1:48 Malignant neop lasm Results for this PM CDT of unspecified procedure are in kidney, except the results renal pelvis section. TOTAL PROTEIN Routine 04/28/2021 1:48 Malignant neoplasm Resu lts for this PM CDT of unspecified procedure are in kidney, except the results renal pelvis section. ASPARTATE Routine 04/28/2021 1:48 Malignant neoplasm Resul ts for this AMINOTRANSFERASE PM CDT of unspecified procedure are in kidney, except the results renal pelvis section. ALANINE AMINOTRANSFERASE Routine 04/28/2021 1:48 Malignant ne oplasm Results for this PM CDT of unspecified procedure are in kidney, except the results renal pelvis section. ALKALINE PHOSPHATASE Routine 04/28/2021 1:48 Malignant neopla sm Results for this PM CDT of unspecified procedure are in kidney, except the results renal pelvis section. ALBUMIN LEVEL Routine 04/28/2021 1:48 Malignant neoplasm Resu lts for this PM CDT of unspecified procedure are in kidney, except the results renal pelvis section. CALCIUM LEVEL TOTAL Routine 04/28/2021 1:48 Malignant neoplas m Results for this PM CDT of unspecified procedure are in kidney, except the results renal pelvis section. .GLOMERULAR FILTRATION Routine 04/28/2021 1:48 Malignant neop lasm Results for this RATE PM CDT of unspecified procedure are in kidney, except the results renal pelvis section. SERUM CREATININE Routine 04/28/2021 1:48 Malignant neoplasm R esults for this PM CDT of unspecified procedure are in kidney, except the results renal pelvis section. ELECTROLYTE PANEL Routine 04/28/2021 1:48 Malignant neoplasm Results for this PM CDT of unspecified procedure are in kidney, except the results renal pelvis section. BLOOD UREA NITROGEN Routine 04/28/2021 1:48 Malignant neoplas m Results for this PM CDT of unspecified procedure are in kidney, except the results renal pelvis section. GLUCOSE LEVEL Routine 04/28/2021 1:48 Malignant neoplasm Resu lts for this PM CDT of unspecified procedure are in kidney, except the results renal pelvis section. PROTEIN / CREATININE Routine 04/28/2021 1:48 Malignant neopla sm Results for this RATIO URINE PM CDT of unspecified procedure are in kidney, except the results renal pelvis section. URINALYSIS WITH Routine 04/28/2021 1:48 Malignant neoplasm Re sults for this MICROSCOPIC IF INDICATED PM CDT of unspecified p rocedure are in kidney, except the results renal pelvis section. TYPE AND SCREEN Routine 04/28/2021 1:48 Malignant neoplasm PM CDT of unspecified kidney, except renal pelvis FREE THYROXINE Routine 04/28/2021 1:48 Malignant neoplasm Res ults for this PM CDT of unspecified procedure are in kidney, except the results renal pelvis section. THYROID STIMULATING Routine 04/28/2021 1:48 Malignant neoplas m Results for this HORMONE PM CDT of unspecified procedure are in kidney, except the results renal pelvis section. PHOSPHORUS LEVEL Routine 04/28/2021 1:48 Malignant neoplasm R esults for this PM CDT of unspecified procedure are in kidney, except the results renal pelvis section. MAGNESIUM LEVEL Routine 04/28/2021 1:48 Malignant neoplasm Re sults for this PM CDT of unspecified procedure are in kidney, except the results renal pelvis section. LACTATE DEHYDROGENASE Routine 04/28/2021 1:48 Malignant neopl asm Results for this PM CDT of unspecified procedure are in kidney, except the results renal pelvis section. COMPLETE BLOOD COUNT W/ Routine 04/28/2021 1:48 Malignant joellen plasm DIFFERENTIAL PM CDT of unspecified kidney, except renal pelvis COMPREHENSIVE METABOLIC Routine 04/28/2021 1:48 Malignant joellen plasm PANEL PM CDT of unspecified kidney, except renal pelvis PRBC PRODUCT READY FOR Routine 04/27/2021 10:39 R esults for this TREE SCOUT AM CDT procedure are i n the results section. PREPARE RBC Routine 04/27/2021 10:39 Malignant neoplasm Resul ts for this AM CDT of unspecified procedure are in kidney, except the results renal pelvis section. CT CHEST ABDOMEN PELVIS Routine 03/23/2021 5:37 Malignant joellen plasm Results for this W CONTRAST PM CDT of left kidney, procedure ar e in except renal pelvis the resu lts section. POC GLUCOSE SCREEN Routine 03/23/2021 5:27 Resul ts for this PM CDT procedure are i n the results section. NM BONE SCAN WHOLE BODY Routine 03/23/2021 2:54 Malignant joellen plasm Results for this PM CDT of left kidney, procedure ar e in except renal pelvis the resu lts section. URINALYSIS MICROSCOPIC Routine 03/23/2021 12:53 R esults for this PM CDT procedure are i n the results section. FRACTIONATED BILIRUBIN Routine 03/23/2021 12:53 Malignant neop lasm Results for this PM CDT of left kidney, procedure ar e in except renal pelvis the resu lts section. TOTAL PROTEIN Routine 03/23/2021 12:53 Malignant neoplasm Resu lts for this PM CDT of left kidney, procedure ar e in except renal pelvis the resu lts section. ASPARTATE Routine 03/23/2021 12:53 Malignant neoplasm Resul ts for this AMINOTRANSFERASE PM CDT of left kidney, procedur e are in except renal pelvis the resu lts section. ALANINE AMINOTRANSFERASE Routine 03/23/2021 12:53 Malignant ne oplasm Results for this PM CDT of left kidney, procedure ar e in except renal pelvis the resu lts section. ALKALINE PHOSPHATASE Routine 03/23/2021 12:53 Malignant neopla sm Results for this PM CDT of left kidney, procedure ar e in except renal pelvis the resu lts section. ALBUMIN LEVEL Routine 03/23/2021 12:53 Malignant neoplasm Resu lts for this PM CDT of left kidney, procedure ar e in except renal pelvis the resu lts section. CALCIUM LEVEL TOTAL Routine 03/23/2021 12:53 Malignant neoplas m Results for this PM CDT of left kidney, procedure ar e in except renal pelvis the resu lts section. .GLOMERULAR FILTRATION Routine 03/23/2021 12:53 Malignant neop lasm Results for this RATE PM CDT of left kidney, procedure ar e in except renal pelvis the resu lts section. SERUM CREATININE Routine 03/23/2021 12:53 Malignant neoplasm R esults for this PM CDT of left kidney, procedure ar e in except renal pelvis the resu lts section. ELECTROLYTE PANEL Routine 03/23/2021 12:53 Malignant neoplasm Results for this PM CDT of left kidney, procedure ar e in except renal pelvis the resu lts section. BLOOD UREA NITROGEN Routine 03/23/2021 12:53 Malignant neoplas m Results for this PM CDT of left kidney, procedure ar e in except renal pelvis the resu lts section. GLUCOSE LEVEL Routine 03/23/2021 12:53 Malignant neoplasm Resu lts for this PM CDT of left kidney, procedure ar e in except renal pelvis the resu lts section. MANUAL DIFFERENTIAL Routine 03/23/2021 12:53 Malignant neoplas m Results for this PM CDT of left kidney, procedure ar e in except renal pelvis the resu lts section. Results CBC Routine 03/23/2021 12:53 Malignant neoplasm Resul ts for this PM CDT of left kidney, procedure ar e in except renal pelvis the resu lts section. PROTEIN / CREATININE Routine 03/23/2021 12:53 Malignant neopla sm Results for this RATIO URINE PM CDT of left kidney, procedure ar e in except renal pelvis the resu lts section. URINALYSIS WITH Routine 03/23/2021 12:53 Malignant neoplasm Re sults for this MICROSCOPIC IF INDICATED PM CDT of left kidney, procedure are in except renal pelvis the resu lts section. FREE THYROXINE Routine 03/23/2021 12:53 Malignant neoplasm Res ults for this PM CDT of left kidney, procedure ar e in except renal pelvis the resu lts section. THYROID STIMULATING Routine 03/23/2021 12:53 Malignant neoplas m Results for this HORMONE PM CDT of left kidney, procedure ar e in except renal pelvis the resu lts section. SEDIMENTATION RATE Routine 03/23/2021 12:53 Malignant neoplasm Results for this NON-AUTOMATED PM CDT of left kidney, procedure a re in except renal pelvis the resu lts section. PHOSPHORUS LEVEL Routine 03/23/2021 12:53 Malignant neoplasm R esults for this PM CDT of left kidney, procedure ar e in except renal pelvis the resu lts section. MAGNESIUM LEVEL Routine 03/23/2021 12:53 Malignant neoplasm Re sults for this PM CDT of left kidney, procedure ar e in except renal pelvis the resu lts section. LACTATE DEHYDROGENASE Routine 03/23/2021 12:53 Malignant neopl asm Results for this PM CDT of left kidney, procedure ar e in except renal pelvis the resu lts section. COMPREHENSIVE METABOLIC Routine 03/23/2021 12:53 Malignant joellen plasm PANEL PM CDT of left kidney, except renal pelvis C REACTIVE PROTEIN Routine 03/23/2021 12:53 Malignant neoplasm Results for this PM CDT of left kidney, procedure ar e in except renal pelvis the resu lts section. 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 of bone WOUND CULTURE W/ GRAM Routine 03/16/2021 1:40 Re sults for this STAIN PM CDT procedure are i n the results section. FRACTIONATED BILIRUBIN Routine 02/09/2021 10:21 Malignant neop lasm Results for this AM CDT of left kidney, procedure ar e in except renal pelvis the resu lts section. TOTAL PROTEIN Routine 02/09/2021 10:21 Malignant neoplasm Resu lts for this AM CDT of left kidney, procedure ar e in except renal pelvis the resu lts section. ASPARTATE Routine 02/09/2021 10:21 Malignant neoplasm Resul ts for this AMINOTRANSFERASE AM CDT of left kidney, procedur e are in except renal pelvis the resu lts section. ALANINE AMINOTRANSFERASE Routine 02/09/2021 10:21 Malignant ne oplasm Results for this AM CDT of left kidney, procedure ar e in except renal pelvis the resu lts section. ALKALINE PHOSPHATASE Routine 02/09/2021 10:21 Malignant neopla sm Results for this AM CDT of left kidney, procedure ar e in except renal pelvis the resu lts section. ALBUMIN LEVEL Routine 02/09/2021 10:21 Malignant neoplasm Resu lts for this AM CDT of left kidney, procedure ar e in except renal pelvis the resu lts section. CALCIUM LEVEL TOTAL Routine 02/09/2021 10:21 Malignant neoplas m Results for this AM CDT of left kidney, procedure ar e in except renal pelvis the resu lts section. .GLOMERULAR FILTRATION Routine 02/09/2021 10:21 Malignant neop lasm Results for this RATE AM CDT of left kidney, procedure ar e in except renal pelvis the resu lts section. SERUM CREATININE Routine 02/09/2021 10:21 Malignant neoplasm R esults for this AM CDT of left kidney, procedure ar e in except renal pelvis the resu lts section. ELECTROLYTE PANEL Routine 02/09/2021 10:21 Malignant neoplasm Results for this AM CDT of left kidney, procedure ar e in except renal pelvis the resu lts section. BLOOD UREA NITROGEN Routine 02/09/2021 10:21 Malignant neoplas m Results for this AM CDT of left kidney, procedure ar e in except renal pelvis the resu lts section. GLUCOSE LEVEL Routine 02/09/2021 10:21 Malignant neoplasm Resu lts for this AM CDT of left kidney, procedure ar e in except renal pelvis the resu lts section. MANUAL DIFFERENTIAL Routine 02/09/2021 10:21 Malignant neoplas m Results for this AM CDT of left kidney, procedure ar e in except renal pelvis the resu lts section. Results CBC Routine 02/09/2021 10:21 Malignant neoplasm Resul ts for this AM CDT of left kidney, procedure ar e in except renal pelvis the resu lts section. FREE THYROXINE Routine 02/09/2021 10:21 Malignant neoplasm Res ults for this AM CDT of left kidney, procedure ar e in except renal pelvis the resu lts section. C REACTIVE PROTEIN Routine 02/09/2021 10:21 Malignant neoplasm Results for this AM CDT of left kidney, procedure ar e in except renal pelvis the resu lts section. THYROID STIMULATING Routine 02/09/2021 10:21 Malignant neoplas m Results for this HORMONE AM CDT of left kidney, procedure ar e in except renal pelvis the resu lts section. SEDIMENTATION RATE Routine 02/09/2021 10:21 Malignant neoplasm Results for this NON-AUTOMATED AM CDT of left kidney, procedure a re in except renal pelvis the resu lts section. PHOSPHORUS LEVEL Routine 02/09/2021 10:21 Malignant neoplasm R esults for this AM CDT of left kidney, procedure ar e in except renal pelvis the resu lts section. MAGNESIUM LEVEL Routine 02/09/2021 10:21 Malignant neoplasm Re sults for this AM CDT of left kidney, procedure ar e in except renal pelvis the resu lts section. LACTATE DEHYDROGENASE Routine 02/09/2021 10:21 Malignant neopl asm Results for this AM CDT of left kidney, procedure ar e in except renal pelvis the resu lts section. COMPREHENSIVE METABOLIC Routine 02/09/2021 10:21 Malignant joellen plasm PANEL AM CDT of left kidney, except renal pelvis COMPLETE BLOOD COUNT W/ Routine 02/09/2021 10:21 Malignant joellen plasm DIFFERENTIAL AM CDT of left kidney, except renal pelvis URINALYSIS MICROSCOPIC Routine 02/09/2021 10:16 R esults for this AM CDT procedure are i n the results section. PROTEIN / CREATININE Routine 02/09/2021 10:16 Malignant neopla sm Results for this RATIO URINE AM CDT of left kidney, procedure ar e in except renal pelvis the resu lts section. URINALYSIS WITH Routine 02/09/2021 10:16 Malignant neoplasm Re sults for this MICROSCOPIC IF INDICATED AM CDT of left kidney, procedure are in except renal pelvis the resu lts section. BLOOD UREA NITROGEN Routine 02/02/2021 3:57 Abnormal level of Results for this PM CDT other serum enzyme procedure are in the results section. FRACTIONATED BILIRUBIN Routine 02/02/2021 3:57 Abnormal level of Results for this PM CDT other serum enzyme procedure are in the results section. TOTAL PROTEIN Routine 02/02/2021 3:57 Abnormal level of Resul ts for this PM CDT other serum enzyme procedure are in the results section. ASPARTATE Routine 02/02/2021 3:57 Abnormal level of Result s for this AMINOTRANSFERASE PM CDT other serum enzyme proce dure are in the results section. ALANINE AMINOTRANSFERASE Routine 02/02/2021 3:57 Abnormal lev el of Results for this PM CDT other serum enzyme procedure are in the results section. ALKALINE PHOSPHATASE Routine 02/02/2021 3:57 Abnormal level o f Results for this PM CDT other serum enzyme procedure are in the results section. ALBUMIN LEVEL Routine 02/02/2021 3:57 Abnormal level of Resul ts for this PM CDT other serum enzyme procedure are in the results section. CALCIUM LEVEL TOTAL Routine 02/02/2021 3:57 Abnormal level of Results for this PM CDT other serum enzyme procedure are in the results section. .GLOMERULAR FILTRATION Routine 02/02/2021 3:57 Abnormal level of Results for this RATE PM CDT other serum enzyme procedure are in the results section. SERUM CREATININE Routine 02/02/2021 3:57 Abnormal level of Re sults for this PM CDT other serum enzyme procedure are in the results section. ELECTROLYTE PANEL Routine 02/02/2021 3:57 Abnormal level of R esults for this PM CDT other serum enzyme procedure are in the results section. GLUCOSE LEVEL Routine 02/02/2021 3:57 Abnormal level of Resul ts for this PM CDT other serum enzyme procedure are in the results section. MANUAL DIFFERENTIAL Routine 02/02/2021 3:57 Abnormal level of Results for this PM CDT other serum enzyme procedure are in the results section. Results CBC Routine 02/02/2021 3:57 Abnormal level of Result s for this PM CDT other serum enzyme procedure are in the results section. ALKALINE PHOSPHATASE Routine 02/02/2021 3:57 Abnormal level o f Results for this FRACTIONATED PM CDT other serum enzyme procedure are in the results section. PROTHROMBIN TIME Routine 02/02/2021 3:57 Abnormal level of Re sults for this PM CDT other serum enzyme procedure are in the results section. COMPREHENSIVE METABOLIC Routine 02/02/2021 3:57 Abnormal leve l of PANEL PM CDT other serum enzyme COMPLETE BLOOD COUNT W/ Routine 02/02/2021 3:57 Abnormal leve l of DIFFERENTIAL PM CDT other serum enzyme NM BONE SCAN WHOLE BODY Routine 12/29/2020 10:12 Malignant joellen plasm Results for this AM CDT of left kidney, procedure ar e in except renal pelvis the resu lts section. CT CHEST ABDOMEN PELVIS Routine 12/29/2020 9:07 Malignant joellen plasm Results for this W CONTRAST AM CDT of left kidney, procedure ar e in except renal pelvis the resu lts section. URINALYSIS MICROSCOPIC Routine 12/29/2020 7:11 R esults for this AM CDT procedure are i n the results section. FRACTIONATED BILIRUBIN Routine 12/29/2020 7:11 Malignant neop lasm Results for this AM CDT of left kidney, procedure ar e in except renal pelvis the resu lts section. TOTAL PROTEIN Routine 12/29/2020 7:11 Malignant neoplasm Resu lts for this AM CDT of left kidney, procedure ar e in except renal pelvis the resu lts section. ASPARTATE Routine 12/29/2020 7:11 Malignant neoplasm Resul ts for this AMINOTRANSFERASE AM CDT of left kidney, procedur e are in except renal pelvis the resu lts section. ALANINE AMINOTRANSFERASE Routine 12/29/2020 7:11 Malignant ne oplasm Results for this AM CDT of left kidney, procedure ar e in except renal pelvis the resu lts section. ALKALINE PHOSPHATASE Routine 12/29/2020 7:11 Malignant neopla sm Results for this AM CDT of left kidney, procedure ar e in except renal pelvis the resu lts section. ALBUMIN LEVEL Routine 12/29/2020 7:11 Malignant neoplasm Resu lts for this AM CDT of left kidney, procedure ar e in except renal pelvis the resu lts section. CALCIUM LEVEL TOTAL Routine 12/29/2020 7:11 Malignant neoplas m Results for this AM CDT of left kidney, procedure ar e in except renal pelvis the resu lts section. .GLOMERULAR FILTRATION Routine 12/29/2020 7:11 Malignant neop lasm Results for this RATE AM CDT of left kidney, procedure ar e in except renal pelvis the resu lts section. SERUM CREATININE Routine 12/29/2020 7:11 Malignant neoplasm R esults for this AM CDT of left kidney, procedure ar e in except renal pelvis the resu lts section. ELECTROLYTE PANEL Routine 12/29/2020 7:11 Malignant neoplasm Results for this AM CDT of left kidney, procedure ar e in except renal pelvis the resu lts section. BLOOD UREA NITROGEN Routine 12/29/2020 7:11 Malignant neoplas m Results for this AM CDT of left kidney, procedure ar e in except renal pelvis the resu lts section. GLUCOSE LEVEL Routine 12/29/2020 7:11 Malignant neoplasm Resu lts for this AM CDT of left kidney, procedure ar e in except renal pelvis the resu lts section. MANUAL DIFFERENTIAL Routine 12/29/2020 7:11 Malignant neoplas m Results for this AM CDT of left kidney, procedure ar e in except renal pelvis the resu lts section. Results CBC Routine 12/29/2020 7:11 Malignant neoplasm Resul ts for this AM CDT of left kidney, procedure ar e in except renal pelvis the resu lts section. PROTEIN / CREATININE Routine 12/29/2020 7:11 Malignant neopla sm Results for this RATIO URINE AM CDT of left kidney, procedure ar e in except renal pelvis the resu lts section. URINALYSIS WITH Routine 12/29/2020 7:11 Malignant neoplasm Re sults for this MICROSCOPIC IF INDICATED AM CDT of left kidney, procedure are in except renal pelvis the resu lts section. FREE THYROXINE Routine 12/29/2020 7:11 Malignant neoplasm Res ults for this AM CDT of left kidney, procedure ar e in except renal pelvis the resu lts section. THYROID STIMULATING Routine 12/29/2020 7:11 Malignant neoplas m Results for this HORMONE AM CDT of left kidney, procedure ar e in except renal pelvis the resu lts section. SEDIMENTATION RATE Routine 12/29/2020 7:11 Malignant neoplasm Results for this NON-AUTOMATED AM CDT of left kidney, procedure a re in except renal pelvis the resu lts section. PHOSPHORUS LEVEL Routine 12/29/2020 7:11 Malignant neoplasm R esults for this AM CDT of left kidney, procedure ar e in except renal pelvis the resu lts section. MAGNESIUM LEVEL Routine 12/29/2020 7:11 Malignant neoplasm Re sults for this AM CDT of left kidney, procedure ar e in except renal pelvis the resu lts section. LACTATE DEHYDROGENASE Routine 12/29/2020 7:11 Malignant neopl asm Results for this AM CDT of left kidney, procedure ar e in except renal pelvis the resu lts section. C REACTIVE PROTEIN Routine 12/29/2020 7:11 Malignant neoplasm Results for this AM CDT of left kidney, procedure ar e in except renal pelvis the resu lts section. COMPREHENSIVE METABOLIC Routine 12/29/2020 7:11 Malignant joellen plasm PANEL AM CDT of left kidney, except renal pelvis COMPLETE BLOOD COUNT W/ Routine 12/29/2020 7:11 Malignant joellen plasm DIFFERENTIAL AM CDT of left kidney, except renal pelvis CALCIUM LEVEL TOTAL Routine 12/05/2020 7:43 Abnormal level of Results for this AM CDT other serum enzyme procedure are in the results section. .GLOMERULAR FILTRATION Routine 12/05/2020 7:43 Abnormal level of Results for this RATE AM CDT other serum enzyme procedure are in the results section. SERUM CREATININE Routine 12/05/2020 7:43 Abnormal level of Re sults for this AM CDT other serum enzyme procedure are in the results section. ELECTROLYTE PANEL Routine 12/05/2020 7:43 Abnormal level of R esults for this AM CDT other serum enzyme procedure are in the results section. BLOOD UREA NITROGEN Routine 12/05/2020 7:43 Abnormal level of Results for this AM CDT other serum enzyme procedure are in the results section. GLUCOSE LEVEL Routine 12/05/2020 7:43 Abnormal level of Resul ts for this AM CDT other serum enzyme procedure are in the results section. FRACTIONATED BILIRUBIN Routine 12/05/2020 7:43 Abnormal level of Results for this AM CDT other serum enzyme procedure are in the results section. TOTAL PROTEIN Routine 12/05/2020 7:43 Abnormal level of Resul ts for this AM CDT other serum enzyme procedure are in the results section. ASPARTATE Routine 12/05/2020 7:43 Abnormal level of Result s for this AMINOTRANSFERASE AM CDT other serum enzyme proce dure are in the results section. ALANINE AMINOTRANSFERASE Routine 12/05/2020 7:43 Abnormal lev el of Results for this AM CDT other serum enzyme procedure are in the results section. ALKALINE PHOSPHATASE Routine 12/05/2020 7:43 Abnormal level o f Results for this AM CDT other serum enzyme procedure are in the results section. ALBUMIN LEVEL Routine 12/05/2020 7:43 Abnormal level of Resul ts for this AM CDT other serum enzyme procedure are in the results section. IMMUNOGLOBULIN G SERUM Routine 12/05/2020 7:43 Abnormal level of Results for this AM CDT other serum enzyme procedure are in the results section. COMPREHENSIVE METABOLIC Routine 12/05/2020 7:43 Abnormal leve l of PANEL AM CDT other serum enzyme PROTHROMBIN TIME Routine 12/05/2020 7:43 Abnormal level of Re sults for this AM CDT other serum enzyme procedure are in the results section. HEPATIC FUNCTION PANEL Routine 12/05/2020 7:43 Abnormal level of AM CDT other serum enzyme URINALYSIS MICROSCOPIC Routine 11/11/2020 8:03 R esults for this AM CDT procedure are i n the results section. FRACTIONATED BILIRUBIN Routine 11/11/2020 8:03 Malignant neop lasm Results for this AM CDT of left kidney, procedure ar e in except renal pelvis the resu lts section. TOTAL PROTEIN Routine 11/11/2020 8:03 Malignant neoplasm Resu lts for this AM CDT of left kidney, procedure ar e in except renal pelvis the resu lts section. ASPARTATE Routine 11/11/2020 8:03 Malignant neoplasm Resul ts for this AMINOTRANSFERASE AM CDT of left kidney, procedur e are in except renal pelvis the resu lts section. ALANINE AMINOTRANSFERASE Routine 11/11/2020 8:03 Malignant ne oplasm Results for this AM CDT of left kidney, procedure ar e in except renal pelvis the resu lts section. ALKALINE PHOSPHATASE Routine 11/11/2020 8:03 Malignant neopla sm Results for this AM CDT of left kidney, procedure ar e in except renal pelvis the resu lts section. ALBUMIN LEVEL Routine 11/11/2020 8:03 Malignant neoplasm Resu lts for this AM CDT of left kidney, procedure ar e in except renal pelvis the resu lts section. CALCIUM LEVEL TOTAL Routine 11/11/2020 8:03 Malignant neoplas m Results for this AM CDT of left kidney, procedure ar e in except renal pelvis the resu lts section. .GLOMERULAR FILTRATION Routine 11/11/2020 8:03 Malignant neop lasm Results for this RATE AM CDT of left kidney, procedure ar e in except renal pelvis the resu lts section. SERUM CREATININE Routine 11/11/2020 8:03 Malignant neoplasm R esults for this AM CDT of left kidney, procedure ar e in except renal pelvis the resu lts section. ELECTROLYTE PANEL Routine 11/11/2020 8:03 Malignant neoplasm Results for this AM CDT of left kidney, procedure ar e in except renal pelvis the resu lts section. BLOOD UREA NITROGEN Routine 11/11/2020 8:03 Malignant neoplas m Results for this AM CDT of left kidney, procedure ar e in except renal pelvis the resu lts section. GLUCOSE LEVEL Routine 11/11/2020 8:03 Malignant neoplasm Resu lts for this AM CDT of left kidney, procedure ar e in except renal pelvis the resu lts section. MANUAL DIFFERENTIAL Routine 11/11/2020 8:03 Malignant neoplas m Results for this AM CDT of left kidney, procedure ar e in except renal pelvis the resu lts section. Results CBC Routine 11/11/2020 8:03 Malignant neoplasm Resul ts for this AM CDT of left kidney, procedure ar e in except renal pelvis the resu lts section. SEDIMENTATION RATE Routine 11/11/2020 8:03 Malignant neoplasm Results for this NON-AUTOMATED AM CDT of left kidney, procedure a re in except renal pelvis the resu lts section. C REACTIVE PROTEIN Routine 11/11/2020 8:03 Malignant neoplasm Results for this AM CDT of left kidney, procedure ar e in except renal pelvis the resu lts section. PROTEIN / CREATININE Routine 11/11/2020 8:03 Malignant neopla sm Results for this RATIO URINE AM CDT of left kidney, procedure ar e in except renal pelvis the resu lts section. URINALYSIS WITH Routine 11/11/2020 8:03 Malignant neoplasm Re sults for this MICROSCOPIC IF INDICATED AM CDT of left kidney, procedure are in except renal pelvis the resu lts section. FREE THYROXINE Routine 11/11/2020 8:03 Malignant neoplasm Res ults for this AM CDT of left kidney, procedure ar e in except renal pelvis the resu lts section. THYROID STIMULATING Routine 11/11/2020 8:03 Malignant neoplas m Results for this HORMONE AM CDT of left kidney, procedure ar e in except renal pelvis the resu lts section. MAGNESIUM LEVEL Routine 11/11/2020 8:03 Malignant neoplasm Re sults for this AM CDT of left kidney, procedure ar e in except renal pelvis the resu lts section. PHOSPHORUS LEVEL Routine 11/11/2020 8:03 Malignant neoplasm R esults for this AM CDT of left kidney, procedure ar e in except renal pelvis the resu lts section. LACTATE DEHYDROGENASE Routine 11/11/2020 8:03 Malignant neopl asm Results for this AM CDT of left kidney, procedure ar e in except renal pelvis the resu lts section. COMPREHENSIVE METABOLIC Routine 11/11/2020 8:03 Malignant joellen plasm PANEL AM CDT of left kidney, except renal pelvis COMPLETE BLOOD COUNT W/ Routine 11/11/2020 8:03 Malignant joellen plasm DIFFERENTIAL AM CDT of left kidney, except renal pelvis CT CHEST ABDOMEN PELVIS Routine 09/29/2020 4:31 Malignant joellen plasm Results for this W CONTRAST PM TOWBOAT PILOT of left kidney, procedure ar e in except renal pelvis the resu lts section. NM BONE SCAN WHOLE BODY Routine 09/29/2020 2:30 Malignant joellen plasm Results for this PM TOWBOAT PILOT of left kidney, procedure ar e in except renal pelvis the resu lts section. XR FOOT 3+ VW LEFT Routine 09/29/2020 1:21 Non-pressure Resul ts for this PM TOWBOAT PILOT chronic ulcer of procedure a re in other part of left the resul ts foot with fat layer section. exposed URINALYSIS MICROSCOPIC Routine 09/29/2020 12:35 R esults for this PM TOWBOAT PILOT procedure are i n the results section. MANUAL DIFFERENTIAL Routine 09/29/2020 12:35 Generalized edema Results for this PM TOWBOAT PILOT procedure are i n the results section. Results CBC Routine 09/29/2020 12:35 Generalized edema Result s for this PM TOWBOAT PILOT procedure are i n the results section. FRACTIONATED BILIRUBIN Routine 09/29/2020 12:35 Malignant neop lasm Results for this PM TOWBOAT PILOT of left kidney, procedure ar e in except renal pelvis the resu lts section. TOTAL PROTEIN Routine 09/29/2020 12:35 Malignant neoplasm Resu lts for this PM TOWBOAT PILOT of left kidney, procedure ar e in except renal pelvis the resu lts section. ASPARTATE Routine 09/29/2020 12:35 Malignant neoplasm Resul ts for this AMINOTRANSFERASE PM TOWBOAT PILOT of left kidney, procedur e are in except renal pelvis the resu lts section. ALANINE AMINOTRANSFERASE Routine 09/29/2020 12:35 Malignant ne oplasm Results for this PM TOWBOAT PILOT of left kidney, procedure ar e in except renal pelvis the resu lts section. ALKALINE PHOSPHATASE Routine 09/29/2020 12:35 Malignant neopla sm Results for this PM TOWBOAT PILOT of left kidney, procedure ar e in except renal pelvis the resu lts section. ALBUMIN LEVEL Routine 09/29/2020 12:35 Malignant neoplasm Resu lts for this PM TOWBOAT PILOT of left kidney, procedure ar e in except renal pelvis the resu lts section. .GLOMERULAR FILTRATION Routine 09/29/2020 12:35 Generalized ed celsa Results for this RATE PM TOWBOAT PILOT procedure are i n the results section. SERUM CREATININE Routine 09/29/2020 12:35 Generalized edema Re sults for this PM TOWBOAT PILOT procedure are i n the results section. FREE THYROXINE Routine 09/29/2020 12:35 Malignant neoplasm Res ults for this PM TOWBOAT PILOT of left kidney, procedure ar e in except renal pelvis the resu lts section. THYROID STIMULATING Routine 09/29/2020 12:35 Malignant neoplas m Results for this HORMONE PM TOWBOAT PILOT of left kidney, procedure ar e in except renal pelvis the resu lts section. LACTATE DEHYDROGENASE Routine 09/29/2020 12:35 Malignant neopl asm Results for this PM TOWBOAT PILOT of left kidney, procedure ar e in except renal pelvis the resu lts section. COMPREHENSIVE METABOLIC Routine 09/29/2020 12:35 Malignant joellen plasm PANEL PM TOWBOAT PILOT of left kidney, except renal pelvis PROTEIN / CREATININE Routine 09/29/2020 12:35 Generalized willie a Results for this RATIO URINE PM TOWBOAT PILOT procedure are i n the results section. URINALYSIS WITH Routine 09/29/2020 12:35 Generalized edema Res ults for this MICROSCOPIC IF INDICATED PM TOWBOAT PILOT pro cedure are in the results section. COMPLETE BLOOD COUNT W/ Routine 09/29/2020 12:35 Generalized e mary alice DIFFERENTIAL PM TOWBOAT PILOT URIC ACID Routine 09/29/2020 12:35 Generalized edema Result s for this PM TOWBOAT PILOT procedure are i n the results section. MAGNESIUM LEVEL Routine 09/29/2020 12:35 Generalized edema Res ults for this PM TOWBOAT PILOT procedure are i n the results section. PHOSPHORUS LEVEL Routine 09/29/2020 12:35 Generalized edema Re sults for this PM TOWBOAT PILOT procedure are i n the results section. CALCIUM LEVEL TOTAL Routine 09/29/2020 12:35 Generalized edema Results for this PM TOWBOAT PILOT procedure are i n the results section. SERUM CREATININE Routine 09/29/2020 12:35 Generalized edema PM TOWBOAT PILOT GLUCOSE, RANDOM Routine 09/29/2020 12:35 Generalized edema Res ults for this PM TOWBOAT PILOT procedure are i n the results section. BLOOD UREA NITROGEN Routine 09/29/2020 12:35 Generalized edema Results for this PM TOWBOAT PILOT procedure are i n the results section. ELECTROLYTE PANEL Routine 09/29/2020 12:35 Generalized edema R esults for this PM TOWBOAT PILOT procedure are i n the results section. FRACTIONATED BILIRUBIN Routine 09/23/2020 3:46 Elevated liver Results for this PM TOWBOAT PILOT enzymes level procedure are in the results section. TOTAL PROTEIN Routine 09/23/2020 3:46 Elevated liver Results for this PM TOWBOAT PILOT enzymes level procedure are in the results section. ASPARTATE Routine 09/23/2020 3:46 Elevated liver Results f or this AMINOTRANSFERASE PM TOWBOAT PILOT enzymes level procedure are in the results section. ALANINE AMINOTRANSFERASE Routine 09/23/2020 3:46 Elevated juan er Results for this PM TOWBOAT PILOT enzymes level procedure are in the results section. ALKALINE PHOSPHATASE Routine 09/23/2020 3:46 Elevated liver R esults for this PM TOWBOAT PILOT enzymes level procedure are in the results section. ALBUMIN LEVEL Routine 09/23/2020 3:46 Elevated liver Results for this PM TOWBOAT PILOT enzymes level procedure are in the results section. CALCIUM LEVEL TOTAL Routine 09/23/2020 3:46 Elevated liver Re sults for this PM TOWBOAT PILOT enzymes level procedure are in the results section. .GLOMERULAR FILTRATION Routine 09/23/2020 3:46 Elevated liver Results for this RATE PM TOWBOAT PILOT enzymes level procedure are in the results section. SERUM CREATININE Routine 09/23/2020 3:46 Elevated liver Resul ts for this PM TOWBOAT PILOT enzymes level procedure are in the results section. ELECTROLYTE PANEL Routine 09/23/2020 3:46 Elevated liver Resu lts for this PM TOWBOAT PILOT enzymes level procedure are in the results section. BLOOD UREA NITROGEN Routine 09/23/2020 3:46 Elevated liver Re sults for this PM TOWBOAT PILOT enzymes level procedure are in the results section. GLUCOSE LEVEL Routine 09/23/2020 3:46 Elevated liver Results for this PM TOWBOAT PILOT enzymes level procedure are in the results section. COMPREHENSIVE METABOLIC Routine 09/23/2020 3:46 Elevated live r PANEL PM TOWBOAT PILOT enzymes level WOUND CULTURE W/ GRAM Routine 09/08/2020 3:57 Non-pressure Re sults for this STAIN PM TOWBOAT PILOT chronic ulcer of procedure a re in other part of left the resul ts foot with fat layer section. exposed IR US NON-TARGET LIVER Routine 09/06/2020 12:45 Abnormal level of Results for this BIOPSY PM TOWBOAT PILOT other serum enzyme procedure are in the results section. PATHOLOGY BIOPSY Routine 09/06/2020 11:42 Abnormal level of Re sults for this INTERPRETATION AM TOWBOAT PILOT other serum enzy me procedure are in Liver function the results tests abnormal section. POC GLUCOSE SCREEN Routine 09/06/2020 11:37 Resul ts for this AM TOWBOAT PILOT procedure are i n the results section. HC 2019-NCOV COVID-19 Routine 09/03/2020 9:22 Suspected COVID -19 Results for this AM TOWBOAT PILOT procedure are i n the results section. TMP INTERPRETATION Routine 09/03/2020 9:06 Resul ts for this ANTIBODY SCREEN NEGATIVE AM TOWBOAT PILOT pro cedure are in the results section. CLOT EXPIRATION DATE Routine 09/03/2020 9:06 Res ults for this AM TOWBOAT PILOT procedure are i n the results section. ANION GAP Routine 09/03/2020 9:06 Results for this AM TOWBOAT PILOT procedure are i n the results section. ANTIBODY SCREEN Routine 09/03/2020 9:06 Results for this AM TOWBOAT PILOT procedure are i n the results section. ABORH Routine 09/03/2020 9:06 Results for this AM TOWBOAT PILOT procedure are i n the results section. .GLOMERULAR FILTRATION Routine 09/03/2020 9:06 R esults for this RATE AM TOWBOAT PILOT procedure are i n the results section. SERUM CREATININE Routine 09/03/2020 9:06 Results for this AM TOWBOAT PILOT procedure are i n the results section. TYPE AND SCREEN Routine 09/03/2020 9:06 AM TOWBOAT PILOT GLUCOSE, RANDOM Routine 09/03/2020 9:06 Results for this AM TOWBOAT PILOT procedure are i n the results section. BLOOD UREA NITROGEN Routine 09/03/2020 9:06 Resu lts for this AM TOWBOAT PILOT procedure are i n the results section. SERUM CREATININE Routine 09/03/2020 9:06 AM TOWBOAT PILOT POTASSIUM LEVEL Routine 09/03/2020 9:06 Results for this AM TOWBOAT PILOT procedure are i n the results section. SODIUM LEVEL Routine 09/03/2020 9:06 Results for this AM TOWBOAT PILOT procedure are i n the results section. CHLORIDE LEVEL Routine 09/03/2020 9:06 Results f or this AM TOWBOAT PILOT procedure are i n the results section. CARBON DIOXIDE LEVEL Routine 09/03/2020 9:06 Res ults for this AM TOWBOAT PILOT procedure are i n the results section. URINALYSIS MICROSCOPIC Routine 08/26/2020 9:09 R esults for this AM TOWBOAT PILOT procedure are i n the results section. FRACTIONATED BILIRUBIN Routine 08/26/2020 9:09 Malignant neop lasm Results for this AM TOWBOAT PILOT of left kidney, procedure ar e in except renal pelvis the resu lts section. TOTAL PROTEIN Routine 08/26/2020 9:09 Malignant neoplasm Resu lts for this AM TOWBOAT PILOT of left kidney, procedure ar e in except renal pelvis the resu lts section. ASPARTATE Routine 08/26/2020 9:09 Malignant neoplasm Resul ts for this AMINOTRANSFERASE AM TOWBOAT PILOT of left kidney, procedur e are in except renal pelvis the resu lts section. ALANINE AMINOTRANSFERASE Routine 08/26/2020 9:09 Malignant ne oplasm Results for this AM TOWBOAT PILOT of left kidney, procedure ar e in except renal pelvis the resu lts section. ALKALINE PHOSPHATASE Routine 08/26/2020 9:09 Malignant neopla sm Results for this AM TOWBOAT PILOT of left kidney, procedure ar e in except renal pelvis the resu lts section. ALBUMIN LEVEL Routine 08/26/2020 9:09 Malignant neoplasm Resu lts for this AM TOWBOAT PILOT of left kidney, procedure ar e in except renal pelvis the resu lts section. CALCIUM LEVEL TOTAL Routine 08/26/2020 9:09 Malignant neoplas m Results for this AM TOWBOAT PILOT of left kidney, procedure ar e in except renal pelvis the resu lts section. .GLOMERULAR FILTRATION Routine 08/26/2020 9:09 Malignant neop lasm Results for this RATE AM TOWBOAT PILOT of left kidney, procedure ar e in except renal pelvis the resu lts section. SERUM CREATININE Routine 08/26/2020 9:09 Malignant neoplasm R esults for this AM TOWBOAT PILOT of left kidney, procedure ar e in except renal pelvis the resu lts section. ELECTROLYTE PANEL Routine 08/26/2020 9:09 Malignant neoplasm Results for this AM TOWBOAT PILOT of left kidney, procedure ar e in except renal pelvis the resu lts section. BLOOD UREA NITROGEN Routine 08/26/2020 9:09 Malignant neoplas m Results for this AM TOWBOAT PILOT of left kidney, procedure ar e in except renal pelvis the resu lts section. GLUCOSE LEVEL Routine 08/26/2020 9:09 Malignant neoplasm Resu lts for this AM TOWBOAT PILOT of left kidney, procedure ar e in except renal pelvis the resu lts section. MANUAL DIFFERENTIAL Routine 08/26/2020 9:09 Malignant neoplas m Results for this AM TOWBOAT PILOT of left kidney, procedure ar e in except renal pelvis the resu lts section. Results CBC Routine 08/26/2020 9:09 Malignant neoplasm Resul ts for this AM TOWBOAT PILOT of left kidney, procedure ar e in except renal pelvis the resu lts section. PROTEIN / CREATININE Routine 08/26/2020 9:09 Malignant neopla sm Results for this RATIO URINE AM TOWBOAT PILOT of left kidney, procedure ar e in except renal pelvis the resu lts section. URINALYSIS WITH Routine 08/26/2020 9:09 Malignant neoplasm Re sults for this MICROSCOPIC IF INDICATED AM TOWBOAT PILOT of left kidney, procedure are in except renal pelvis the resu lts section. SEDIMENTATION RATE Routine 08/26/2020 9:09 Malignant neoplasm Results for this NON-AUTOMATED AM TOWBOAT PILOT of left kidney, procedure a re in except renal pelvis the resu lts section. C REACTIVE PROTEIN Routine 08/26/2020 9:09 Malignant neoplasm Results for this AM TOWBOAT PILOT of left kidney, procedure ar e in except renal pelvis the resu lts section. THYROID STIMULATING Routine 08/26/2020 9:09 Malignant neoplas m Results for this HORMONE AM TOWBOAT PILOT of left kidney, procedure ar e in except renal pelvis the resu lts section. FREE THYROXINE Routine 08/26/2020 9:09 Malignant neoplasm Res ults for this AM TOWBOAT PILOT of left kidney, procedure ar e in except renal pelvis the resu lts section. PHOSPHORUS LEVEL Routine 08/26/2020 9:09 Malignant neoplasm R esults for this AM TOWBOAT PILOT of left kidney, procedure ar e in except renal pelvis the resu lts section. MAGNESIUM LEVEL Routine 08/26/2020 9:09 Malignant neoplasm Re sults for this AM TOWBOAT PILOT of left kidney, procedure ar e in except renal pelvis the resu lts section. LACTATE DEHYDROGENASE Routine 08/26/2020 9:09 Malignant neopl asm Results for this AM TOWBOAT PILOT of left kidney, procedure ar e in except renal pelvis the resu lts section. COMPREHENSIVE METABOLIC Routine 08/26/2020 9:09 Malignant joellen plasm PANEL AM TOWBOAT PILOT of left kidney, except renal pelvis COMPLETE BLOOD COUNT W/ Routine 08/26/2020 9:09 Malignant joellen plasm DIFFERENTIAL AM TOWBOAT PILOT of left kidney, except renal pelvis after 08/09/2020 Results (ABNORMAL) .CBC (06/20/2021 2:13 PM CDT)Only the most recent of10 resultswithin the time period is included. WBC 6.3 4.0 - 11.0 [facility] K/uL [facility] RBC 3.86 (L) 4.50 - 6.00 [facility] M/uL [facility] Hgb 10.1 (L) 14.0 - 18.0 [facility] gm/dL [facility] Hct 32.7 (L) 40.0 - 54.0 % [facility] MCV 85 82 - 98 fL [facility] MCH 26.2 (L) 27.0 - 31.0 pg [facility] MCHC 30.9 (L) 31.0 - 36.0 [facility] gm/dL [facility] RDW-SD 47.4 (H) 35.1 - 46.3 fL [facility] RDW-CV 15.5 12.0 - 15.5 % [facility] Platelet count 275 140 - 440 K/uL [facility] MPV 12.0 (H) 4.0 - 10.4 fL [facility] INRBC 0.0 <=0.0 % [facility] Comment: [facility] CENTER The INRBC (instrument NRBC) value reflects the enumera tion of nucleated red blood cells contained in a 200uL samp le of whole blood analyzed by the instrument. This value may differ from the NRBC value reported in a manual differ ential, which is based on a 100 cell differential. Specimen Blood Performing Organization Address City/[facility]/ZIP Code Phon e Number [facility] CANCER Unless otherwise noted, [address] all lab tests performed by: Division of Pathology and Laboratory Medicine [address] (ABNORMAL) Urinalysis with Microscopic (06/20/2021 2:13 PM CDT)Only the most recent of9 resultswithin the time period is included. Pathologist Sig nature UA WBC 4 (H) 0 - 2 /HPF [facility] UA RBC 36 (H) 0 - 2 /HPF [facility] UA Mucous NOT SEEN Not Seen-Trace /HPF [facility] UA Bacteria NOT SEEN NOT SEEN /HPF [facility] UA Squam Epi OCC None-Occasional [facility] /[facility] CENTER UA Trans Epi OCC (A) NOT SEEN /HPF [facility] UA Hyal Cast 6 (H) 0 - 2 /LPF [facility] UA Gran Cast 3 (H) <=0 /LPF [facility] Specimen Urine Narrative [facility] - 1 3:47 PM CDT Some reporting parameters within the Urinalysis test have changed due to the implementation of new in strumentation in the [facility], allowi ng greater sensitivity of measurement. Urinalysis results reported by the [facility] using existing instrumentation, as well as Urinalysis t esting performed manually or by backup methodology at the [facility] will remain relatively unchanged. New reporting parameters and units will now be reported for all campuses. Performing Organization Address City/State/ZIP Code Phon e Number [facility] CANCER Unless otherwise noted, [address] all lab tests performed by: Division of Pathology and Laboratory Medicine [facility] Protein/Creatinine Ratio Urine (06/20/2021 2:13 PM CDT)Only the most recent of9 resultswithin the time period is included. UTP Ran >555Comment: Normal mg/dL [facility] range not available [facility] for collections less than 24 hours in duration. U Creatinine 97.1Comment: The 40.0 - 278.0 [facility] reference range mg/dL [facility] listed is for first morning urine collection. U Prot/Creat See NoteComment: <=0.14 [facility] Unable to perform [facility] ratio calculation due to one or more parameters outside of reportable ranges. Specimen Urine Performing Organization Address City/State/ZIP [facility] Phon e Number [facility] CANCER Unless otherwise noted, [address] all lab tests performed by: Division of Pathology and Laboratory Medicine [address] [place] [address] (ABNORMAL) Differential (06/20/2021 2:13 PM CDT)Only the most recent of10 resultswithin the time period is included. Neutrophil % 73.2 (H) 42.0 - 66.0 % [facility] Lymphocyte % 14.0 (L) 24.0 - 44.0 % [facility] Monocyte % 7.5 (H) 2.0 - 7.0 % [facility] Eosinophil % 4.5 (H) 1.0 - 4.0 % [facility] Basophil % 0.6 0.0 - 1.0 % [facility] IGRE % 0.2Comment: IGRE % 0.0 - 0.4 % [facility] count includes [facility] Metamyelocytes, Myelocytes, and Promyelocytes. Neutrophil Abs 4.59 1.70 - 7.30 [facility] Lymphocyte Abs 0.88 (L) 1.00 - 4.80 [facility] Monocyte Abs 0.47 0.08 - 0.70 [facility] Eosinophil Abs 0.28 0.04 - 0.40 [facility] Basophil Abs 0.04 0.00 - 0.10 [facility] IG Abs 0.01 0.00 - 0.04 [facility] Specimen Blood Performing Organization Address City/State/ZIP [facility] Phon e Number [facility] CANCER Unless otherwise noted, [address] all lab tests performed by: Division of Pathology and Laboratory Medicine [address] [place] [address] [place] (ABNORMAL) Urinalysis w/Microscopic if Indicated (06/20/2021 2:13 PM CDT)Only the most recent of9 resultswithin the time period is included. Pathologist Sig nature UA Color Yellow Straw-Yellow [facility] UA Appear Hazy (A) Clear [facility] UA Glucose >=500 (A) NEG mg/dL [facility] UA Bili NEG NEG [facility] UA Ketones NEG NEG mg/dL [facility] UA Spec Grav 1.021 1.003 - 1.035 [facility] UA Blood NEG NEG [facility] UA pH 6.0 5.0 - 9.0 [facility] UA Protein >=500 (A) NEG mg/dL [facility] UA Urobilinogen NEG NEG [facility] UA Nitrite NEG NEG [facility] UA Leuk Est NEG NEG [facility] Specimen Urine Performing Organization Address City/[facility] Phon e Number [facility] Unless otherwise noted, [address] all lab tests performed by: Division of Pathology and Laboratory Medicine [facility] Benjicarl[address] a Avalos (ABNORMAL) Sed Rate (06/20/2021 2:13 PM CDT)Only the most recent of7 results within the time period is included. Pathologist Sig nature Sed Rate 117 (H) 0 - 9 mm/hr [facility] Specimen Blood Performing Organization Address [facility] Phon e Number [facility] Unless otherwise noted, [address] all lab tests performed by: Division of Pathology and Laboratory Medicine [address] [place] [address] [place] CRP (06/20/2021 2:13 PM CDT)Only the most recent of7 resultswithin the time period is included. Pathologist Sig nature CRP 43.85 mg/L [facility] Comment: [facility] CENTER Reference ranges for HS CRP assay are as follows: Reference ranges when used to assess cardiac risk: <1.00 mg/L Low cardiovascular risk 1.00-3.00 mg/L Average cardiovascular risk >3.00 mg/L High cardiovascular risk. Reference ranges when used to assess inflammatory resp onses: Less than or equal to 10.00 mg/L. Specimen Blood Performing Organization Address City/[facility] Phon e Number [facility] Unless otherwise noted, [address] all lab tests performed by: Division of Pathology and Laboratory Medicine [facility] [address] (ABNORMAL) .Serum Creatinine (06/20/2021 1:40 PM CDT)Only the most recent of13 resultswithin the time period is included. Pathologist Sig nature Creatinine 1.80 (H) 0.67 - 1.17 mg/dL [facility] Specimen Blood Performing Organization Address City/State/ZIP Code Phon e Number [facility] CANCER Unless otherwise noted, [place] [address] CENTER all lab tests performed by: Division of Pathology and Laboratory Medicine [address] (ABNORMAL) Glomerular Filtration Rate (06/20/2021 1:40 PM CDT)Only the most recent of13 resultswithin the time period is included. eGFR-AA 48 (L) >=60 [facility] Comment: mL/min/1.73 [facility] CENTER Normal eGFR: >= 60 mL/min/1.73 m2 sq. m Note: The eGFR is calculated using the CKD-EPI equation. The eGFR declines with age. eGFR <60 mL/min/1.73 m2 is considered as "decreased". This equation should only be used for patients 18 and older. According to the National dney Foundation's Kidney Disease Outcome Quality Initiative (KDOQI) classification and 2012 Kidney Disease Improving Global Outcomes (KDIGO) Clinical Practice Guideline, the stage of CKD should be categorized based on estimated GFR. Stage Description GFR mL/min/1.73 m2 1 Normal or high GFR >=90 2 Mildly decreased GFR 60-89 3a Mildly to moderately decreased GFR 45-59 3b Moderately to severely decreased GFR 30-44 4 Severely decreased GFR 15-29 5 Kidney failure <15 eGFR-HANNAH 42 (L) >=60 [facility] Comment: mL/min/1.73 [facility] Normal eGFR: >= 60 mL/min/1.73 m2 sq. m Note: The eGFR is calculated using the CKD-EPI equation. The eGFR declines with age. eGFR <60 mL/min/1.73 m2 is considered as "decreased". This equation should only be used for patients 18 and older. According to the National dney Foundation's Kidney Disease Outcome Quality Initiative (KDOQI) classification and 2012 Kidney Disease Improving Global Outcomes (KDIGO) Clinical Practice Guideline, the stage of CKD should be categorized based on estimated GFR. Stage Description GFR mL/min/1.73 m2 1 Normal or high GFR >=90 2 Mildly decreased GFR 60-89 3a Mildly to moderately decreased GFR 45-59 3b Moderately to severely decreased GFR 30-44 4 Severely decreased GFR 15-29 5 Kidney failure <15 Specimen Blood Performing Organization Address City/[facility] Phon e Number [facility] CANCER Unless otherwise noted, [address] all lab tests performed by: Division of Pathology and Laboratory Medicine [address] Fractionated Bilirubin (06/20/2021 1:40 PM CDT)Only the most recent of12 resultswithin the time period is included. Bili Total <0.3 <=1.2 mg/dL [facility] Comment: [facility] Direct and indirect bilirubi n will not be reported when Total bilirubin result is <0.3 mg/dL Indocyanine Green (ICG) may cause falsely elevated bilirubin results. Total and direct bilirubin must not be measured from samples containing indocyanine green. False elevation of total mavis irubin can be seen in patients with IgG concentrations above 28 g/L. Specimen Blood Performing Organization Address [facility] Phon e Number [facility] Unless otherwise noted, [address] all lab tests performed by: Division of Pathology and Laboratory Medicine [address] (ABNORMAL) BUN (06/20/2021 1:40 PM CDT)Only the most recent of13 resultswithin the time period is included. Pathologist Sig nature BUN 42 (H) 6 - 23 mg/dL [facility] Specimen Blood Performing Organization Address [facility] Phon e Number [facility] Unless otherwise noted, [address] all lab tests performed by: Division of Pathology and Laboratory Medicine [address] ALT (06/20/2021 1:40 PM CDT)Only the most recent of12 resultswithin the time period is included. Pathologist Sig nature ALT 22 <=41 U/L [facility] Specimen Blood Performing Organization Address City/[facility] Phon e Number [facility] Unless otherwise noted, [address] all lab tests performed by: Division of Pathology and Laboratory Medicine [address] Aspartate Aminotransferase (06/20/2021 1:40 PM CDT)Only the most recent of12 resultswithin the time period is included. Pathologist Sig nature AST 23 <=40 U/L [facility] Specimen Blood Performing Organization Address [facility] Phon e Number [facility] CANCER Unless otherwise noted, [address] all lab tests performed by: Division of Pathology and Laboratory Medicine [address] TSH (06/20/2021 1:40 PM CDT)Only the most recent of9 resultswithin the time period is included. Pathologist Sig nature TSH 2.59 0.27 - 4.20 mcunit/mL [facility] Specimen Blood Performing Organization Address [facility] Phon e Number [facility] Unless otherwise noted, [address] all lab tests performed by: Division of Pathology and Laboratory Medicine [address] Free T4 (06/20/2021 1:40 PM CDT)Only the most recent of9 resultswithin the time period is included. Pathologist Sig nature T4 Free 1.12 0.93 - 1.70 ng/dL [facility] Specimen Blood Performing Organization Address [facility] Phon e Number [facility] Unless otherwise noted, [address] all lab tests performed by: Division of Pathology and Laboratory Medicine [address] Total Protein (06/20/2021 1:40 PM CDT)Only the most recent of12 resultswithin the time period is included. Pathologist Sig nature Total Protein 7.7 6.4 - 8.3 g/dL [facility] TER Specimen Blood Performing Organization Address [facility] Phon e Number [facility] Unless otherwise noted, [address] all lab tests performed by: Division of Pathology and Laboratory Medicine [address] Phosphorus Level (06/20/2021 1:40 PM CDT)Only the most recent of9 resultswithin the time period is included. Pathologist Sig nature Phosphorus 4.2 2.5 - 4.5 mg/dL [facility] TER Specimen Blood Performing Organization Address [facility] Phon e Number [facility] Unless otherwise noted, [address] all lab tests performed by: Division of Pathology and Laboratory Medicine [address] (ABNORMAL) Alkaline Phosphatase (06/20/2021 1:40 PM CDT)Only the most recent of 12 resultswithin the time period is included. Pathologist Sig nature Alk Phos 155 (H) 40 - 129 U/L [facility] Specimen Blood Performing Organization Address [facility] Phon e Number [facility] CANCER Unless otherwise noted, [address] all lab tests performed by: Division of Pathology and Laboratory Medicine [address] Magnesium Level (06/20/2021 1:40 PM CDT)Only the most recent of9 resultswithin the time period is included. Pathologist Sig nature Magnesium 2.0 1.6 - 2.6 mg/dL [facility] TER Specimen Blood Performing Organization Address [facility] CANCER Unless otherwise noted, [address] all lab tests performed by: Division of Pathology and Laboratory Medicine [address] (ABNORMAL) LDH (06/20/2021 1:40 PM CDT)Only the most recent of9 resultswithin the time period is included. LDH 248 (H)Comment: 135 - 225 U/L [facility] Results greater than [facility] 1651 U/L may not be reliable due to matrix effect with extended dilution as it exceeds the tongue and quarter stitcher s recommended limit. Caution should be exercised when interpreting such values and done in conjunction with clinical context. Specimen Blood Performing Organization Address [facility] CANCER Unless otherwise noted, [address] all lab tests performed by: Division of Pathology and Laboratory Medicine [address] (ABNORMAL) Glucose Level (06/20/2021 1:40 PM CDT)Only the most recent of11 resultswithin the time period is included. Glucose Level 233 (H) 70 - 99 mg/dL [facility] Comment: [facility] [place] Effective 03/22/16, the gluco se reference intervals have been updated based on [place] [employer] guidelines (Standards of Medical Care in Diabetes 2016. Diabetes Care 2016; 39: S13-S22). Fasting blood glucose: Normal: 70-99 mg/dL Impaired fasting glucose (in creased risk for diabetes or pre-diabetes): 100- 125 mg/dL Diabetes mellitus: >/=126 mg/dL Random blood glucose: Normal: 70-199 mg/dL Note: Random glucose >100 mg/dL is assoc iated with increased risk for diabetes Specimen Blood Performing Organization Address [facility] e Number [facility] CANCER Unless otherwise noted, [address] all lab tests performed by: Division of Pathology and Laboratory Medicine [address] Calcium Level (06/20/2021 1:40 PM CDT)Only the most recent of12 resultswithin the time period is included. Pathologist Sig nature Calcium Lvl 9.4 8.4 - 10.2 mg/dL [facility] NTER Specimen Blood Performing Organization Address [facility] CANCER Unless otherwise noted, [address] all lab tests performed by: Division of Pathology and Laboratory Medicine [address] (ABNORMAL) Albumin Level (06/20/2021 1:40 PM CDT)Only the most recent of12 resultswithin the time period is included. Pathologist Sig nature Albumin Lvl 3.4 (L) 3.5 - 5.2 gm/dL [facility] Specimen Blood Performing Organization Address [facility] CANCER Unless otherwise noted, [address] all lab tests performed by: Division of Pathology and Laboratory Medicine [facility] (ABNORMAL) Electrolyte Panel (06/20/2021 1:40 PM CDT)Only the most recent of12 resultswithin the time period is included. Pathologist Sig nature Sodium Lvl 136 136 - 145 mEq/L [facility] Potassium Lvl 4.6 3.5 - 5.1 mEq/L [facility] Chloride 105 98 - 107 mEq/L [facility] CO2 19 (L) 22 - 29 mEq/L [facility] Anion Gap 12 4 - 14 mEq/L [facility] Specimen Blood Performing Organization Address [facility] e Number [facility] CANCER Unless otherwise noted, [address] all lab tests performed by: Division of Pathology and Laboratory Medicine [address] (ABNORMAL) POC Glucose Screen (06/03/2021 2:54 PM CDT)Only the most recent of3 resultswithin the time period is included. POC Glucose 125 (H) 70 - 99 mg/dL [facility] Comment: Capillary blood samples, e.g . obtained by fingerstick, may have inaccurate results in patients with decreased peripheral blood flow. Method description: All resu lts are measured using Electrochemistry test methodology. The glucose in the sample mixes with the reagents on the test strip. The reaction produces an electric current. The amount of current produced is proportional to the glucose concentration in the blood. PO Sample Type Capillary POC [facility], [address] [place] [id number]; [place] Superintendent: Eunice Verma MD Specimen Blood Performing Organization Address City/State/ZIP Code Phon e Number POC [facility] CT Chest Abdomen Pelvis with Contrast (06/03/2021 2:45 PM CDT)Only the most recent of4 resultswithin the time period is included. Specimen Impressions [id number] - 06/04/2021 2:16 PM CDT 1. New collapse of the left upper lobe secondary to enlarged left hilar mass occluding the left upper lobe bronchus and encasing and narrowing left pulmonary artery. 2. New left lower lobe groundglass opaci ties likely infectious/inflammatory process. New small left and trace right pleural effusions. 3. New mediastinal and increased hilar, gastrohepatic, perigastric, portacaval and retroperitoneal metastatic lymphadenopathy. 4. Increase in size and number of multip le bilobar metastatic hepatic lesions. 5. Stable right adrenal metastases. 6. Increased left iliac osseous metastas es with new soft tissue component. 7. Post right femoral resection with air and fluid within the acetabulum with 2 drains and associated soft tissue thickening and enhancement likely postsurgical. Superimposed infection cannot be excluded. Findings discussed with Dr. Heath by Dr Torrie Cheung on 06/04/2021 1:24 PM via phone who gave the instruction to notify Dr. Conte's clinic via email. Narrative [id number] - 06/04/2021 2:16 PM CDT FULL RESULT: Examination: CT CHEST ABDOMEN PELVIS W C ONTRAST, 06/03/2021 2:45 PM Clinical History: Malignant neoplasm of unspecified kidney, except renal pelvis Indication: Cancer staging or restaging Comparison: CT on 03/23/2021 Technique: CT of the chest, abdomen, and pelvis was performed with intravenous contrast. Findings: Chest: Heart: Heart normal in size. No pericard ial effusion. Lymph nodes: New mediastinal and increas ed left hilar metastatic lymphadenopathy for example anterior carinal lymph node (3, image 40) measures 2.2 x 2.3 cm. Right upper paratracheal lymph node (3, imag e 31) measures 1.5 x 1.5 cm. Subcarinal lymph node measures 2.7 x 4 cm. Left hilar lymph node measures 4.9 x 5.9 centimeters compared to 3.5 x 4.8 cm previously. The mass results in new occlusion of the left upper lobe bronchus resulting in c ollapse of the left upper lobe. The mass also encases the left pulmonary arteries resulting in significant narrowing. No axillary lymphadenopathy. Lungs and pleura: New collapse of the le ft upper lobe secondary to enlarged left hilar mass occluding the left upper lobe bronchus. The left lower lobe is expanded and aerated with new groundglass opaci ties likely infectious/inflammatory proc ess. New small left and trace right pleural effusions.Azygous lobe an anatomic variant. Abdomen/pelvis: Patient is post left nephrectomy and lef t adrenalectomy. Liver, gallbladder, bile ducts: Increase in size and number of multiple bilobar metastatic hepatic lesions for example segment 2 hepatic lesion (3, 152) measures 1.9 cm compared to 1.4 cm previously. Ne w peripheral segment 8 lesion (3, 150) m easuring 1.5 cm. New segment 6 lesion (3, 187) measuring 1.8 cm. New segment 8 lesion (series 3, 165) measuring 1.9 cm. No biliary ductal dilatation. Gallbladder is unremarkable. Pancreas: No pancreatic lesion. No pancr eatic duct dilatation. Spleen:Normal in size. No splenic lesion . Right adrenal:Stable right adrenal metas tases measuring 4.2 x 3 cm. Right kidney:No hydronephrosis. No suspi cious renal mass. Bowel and Mesentery: Diverticulosis of t he sigmoid colon without diverticulitis. No bowel wall thickening. No bowel obstruction. No mesenteric mass. Lymph Nodes: Increased gastrohepatic and retroperitoneal metastatic lymphadenopathy for example left gastric lymph node measuring 2.8 x 3.6 cm compared to 1.8 x 2.2 cm previously. Gastrohepatic ligament lymph node measures 2 x 2 0.8 cm compar ed to 0.8 x 1.1 cm previously. Portacaval lymph node measuring 2.3 x 2.9 cm, previously subcentimeter. Aortocaval lymph node measuring 1.9 x 2.3 cm, previously buck bcentimeter. Anterior gastric nodules li margarito lymphadenopathy along the epiploic vessels measuring 1.4 x 1.4 cm, previously not visualized. Another lymph node (3, image 193) measures 2 x 3.2 cm compared to 1.8 x 2.2 cm previously. Stable promi nent bilateral external iliac lymph nodes, nonspecific. No mesenteric, or inguinal lymphadenopathy. Vessels:Patent. Bladder:No bladder wall thickening. Musculoskeletal/Soft tissues:Post right femoral resection with air and fluid within the acetabulum with 2 drains. Soft tissue enhancement may be postsurgical. Left iliac osseous metastases with new soft tissue component involving the gluteal muscle (series 3, 250) measures 2 x 2.3 cm. Procedure Note Casie Cheung MD - 06/04/2021 FULL RESULT: Examination: CT CHEST ABDOMEN PELVIS W C ONTRAST, 06/03/2021 2:45 PM Clinical History: Malignant neoplasm of unspecified kidney, except renal pelvis Indication: Cancer staging or restaging Comparison: CT on 03/23/2021 Technique: CT of the chest, abdomen, and pelvis was performed with intravenous contrast. Findings: Chest: Heart: Heart normal in size. No pericard ial effusion. Lymph nodes: New mediastinal and increas ed left hilar metastatic lymphadenopathy for example anterior carinal lymph node (3, image 40) measures 2.2 x 2.3 cm. Right upper paratracheal lymph node (3, image 31) measures 1.5 x 1.5 cm. Subcarinal lymph node measures 2.7 x 4 cm. Left hilar lymph node measures 4.9 x 5.9 centimeters compared to 3.5 x 4.8 cm previously. The mass results in new occlusion of the left upper lobe bronchus resulting in collapse of the le ft upper lobe. The mass also encases the left pulmonary arteries resulting in significant narrowing. No axillary lymphadenopathy. Lungs and pleura: New collapse of the le ft upper lobe secondary to enlarged left hilar mass occluding the left upper lobe bronchus. The left lower lobe is expanded and aerated with new groundglass opacities likely infectious/inflammatory process. New sma ll left and trace right pleural effusions.Azygous lobe an anatomic variant. Abdomen/pelvis: Patient is post left nephrectomy and lef t adrenalectomy. Liver, gallbladder, bile ducts: Increase in size and number of multiple bilobar metastatic hepatic lesions for example segment 2 hepatic lesion (3, 152) measures 1.9 cm compared to 1.4 cm previously. New peripheral segment 8 lesion (3, 150) measuring 1.5 cm. New segment 6 lesion (3, 187) measuring 1.8 cm. New segment 8 lesion (series 3, 165) measuring 1.9 cm. No biliary ductal dilatation. Gallbladder is unremarkable. Pancreas: No pancreatic lesion. No pancr eatic duct dilatation. Spleen:Normal in size. No splenic lesion . Right adrenal:Stable right adrenal metas tases measuring 4.2 x 3 cm. Right kidney:No hydronephrosis. No suspi cious renal mass. Bowel and Mesentery: Diverticulosis of t he sigmoid colon without diverticulitis. No bowel wall thickening. No bowel obstruction. No mesenteric mass. Lymph Nodes: Increased gastrohepatic and retroperitoneal metastatic lymphadenopathy for example left gastric lymph node measuring 2.8 x 3.6 cm compared to 1.8 x 2.2 cm previously. Gastrohepatic ligament lymph node measures 2 x 2 0.8 cm compared to 0.8 x 1.1 cm previously. Portacaval lymph node measuring 2.3 x 2.9 cm, previously subcentimeter. Aortocaval lymph node measuring 1.9 x 2.3 cm, previously subcentimeter. Anterior gastric nodules likely lymphadenopathy a long the epiploic vessels measuring 1.4 x 1.4 cm, previously not visualized. Another lymph node (3, image 193) measures 2 x 3.2 cm compared to 1.8 x 2.2 cm previously. Stable prominent bilateral external iliac lymph nodes, nonspecific. No mesenteric, or inguinal lymphadenopathy. Vessels:Patent. Bladder:No bladder wall thickening. Musculoskeletal/Soft tissues:Post right femoral resection with air and fluid within the acetabulum with 2 drains. Soft tissue enhancement may be postsurgical. Left iliac osseous metastases with new soft tissue component involving the gluteal muscle (series 3, 250) measures 2 x 2.3 cm. IMPRESSION: 1. New collapse of the left upper lobe s econdary to enlarged left hilar mass occluding the left upper lobe bronchus and encasing and narrowing left pulmonary artery. 2. New left lower lobe groundglass opaci ties likely infectious/inflammatory process. New small left and trace right pleural effusions. 3. New mediastinal and increased hilar, gastrohepatic, perigastric, portacaval and retroperitoneal metastatic lymphadenopathy. 4. Increase in size and number of multip le bilobar metastatic hepatic lesions. 5. Stable right adrenal metastases. 6. Increased left iliac osseous metastas es with new soft tissue component. 7. Post right femoral resection with air and fluid within the acetabulum with 2 drains and associated soft tissue thickening and enhancement likely postsurgical. Superimposed infection cannot be excluded. Findings discussed with Dr. Heath by Dr Torrie Cheung on 06/04/2021 1:24 PM via phone who gave the instruction to notify Dr. Conte's clinic via email. Performing Organization Address City/State/[facility] Code Phon e Number [id number] NM Bone Scan Whole Body (06/03/2021 12:37 PM CDT)Only the most recent of4 resultswithin the time period is included. Specimen Impressions [id number] - 06/03/2021 12:53 PM CDT 1. Stable left posterior iliac metastasis. 2. No new concerning/suspicious foci o f radiotracer uptake. I personally reviewed these image(s) eric ng with the resident's/fellow's interpretations, certify that if a procedure was performed I was physically present, and agree with the final report. Narrative [id number] - 06/03/2021 12:53 PM CDT FULL RESULT: Examination: Whole-Body Bone Scan, 2020 12:37 PM Clinical History: 55-year-old male treat ed for metastatic renal cell carcinoma. Indication: Evaluate for osseous metasta sis Comparison: Bone scan and CT CAP dated J 2020. Technique: Following the intravenous adm inistration of 21.5 mCi of technetium- 99m MDP, anterior and posterior delayed whole body planar images were acquired. Findings: Interval right lower extremity amputatio n with associated postsurgical soft tissue radiotracer uptake. There are no new concerning/suspicious f oci of radiotracer uptake. Stable appearance of previously identified left posterior iliac metastases. Uptake foci of the left distal tibia and left foot appear d egenerative and/or chronic inflammatory in etiology. Degenerative uptake is noted of the shou lders, sternoclavicular joints, costochondral junctions, and spine. There is physiologic urinary excretion in a pattern consistent with history of left nephrectomy. Procedure Note Tavares Huang MD - 06/03/2021 FULL RESULT: Examination: Whole-Body Bone Scan, 2020 12:37 PM Clinical History: 55-year-old male treat ed for metastatic renal cell carcinoma. Indication: Evaluate for osseous metasta sis Comparison: Bone scan and CT CAP dated J 2020. Technique: Following the intravenous adm inistration of 21.5 mCi of technetium- 99m MDP, anterior and posterior delayed whole body planar images were acquired. Findings: Interval right lower extremity amputatio n with associated postsurgical soft tissue radiotracer uptake. There are no new concerning/suspicious f oci of radiotracer uptake. Stable appearance of previously identified left posterior iliac metastases. Uptake foci of the left distal tibia and left foot appear degenerative and/or chronic inflammatory in etiology. Degenerative uptake is noted of the shou lders, sternoclavicular joints, costochondral junctions, and spine. There is physiologic urinary excretion in a pattern consistent with history of left nephrectomy. IMPRESSION: 1. Stable left posterior iliac metastas is. 2. No new concerning/suspicious foci of radiotracer uptake. I personally reviewed these image(s) ericvincenzo major with the resident's/fellow's interpretations, certify that if a procedure was performed I was physically present, and agree with the final report. Performing Organization Address City/State/ZIP Code Phon e Number [id number] Clot Expiration Date (06/03/2021 10:43 AM CDT)Only the most recent of3 results within the time period is included. Pathologist Sig nature T & S Expiration 06/06/2021 [facility] Specimen Blood Performing Organization Address City/State/ZIP Code Phon e Number [facility] CANCER Unless otherwise noted, [place] [address] [place] all lab tests performed by: Division of Pathology and Laboratory Medicine [facility] Benji Bailey TMP Interpretation Antibody Screen Negative (06/03/2021 10:43 AM CDT)Only the most recent of3 resultswithin the time period is included. TMP Auto Neg ABSC At the present time, tamela cervantes plasma shows no evidence of RBC alloantibodies. [facility] Interp Comment: CANCER CENTER ARGENIS STANFORD, Dictated by: ARGENIS STANFORD, Dictated Date/Time: 06.04.20 9:21 AM CDT Transcribed Date/Time: 06.04.2021 9:21 AM CDT Electronically Signed By: MELLISSA STANFORD, on 06.04.2021 9:21 AM C Specimen Blood Performing Organization Address City/[facility]/ZIP Code Phon e Number [facility] Unless otherwise noted, [address] all lab tests performed by: Division of Pathology and Laboratory Medicine [address] [place] [address] [place] ABORh (06/03/2021 10:43 AM CDT)Only the most recent of3 resultswithin the time period is included. Pathologist Sig nature ABORh. A NEG [facility] Specimen Blood Performing Organization Address City/[facility]/ZIP Code Phon e Number [facility] CANCER Unless otherwise noted, [address] all lab tests performed by: Division of Pathology and Laboratory Medicine [address] [place] [address] [place] Antibody Screen (06/03/2021 10:43 AM CDT)Only the most recent of3 resultswithin the time period is included. Pathologist Sig nature ABSC. Negative ABSC [facility] Specimen Blood Performing Organization Address City/[facility]/ZIP [facility] Phon e Number [facility] CANCER Unless otherwise noted, [address] all lab tests performed by: Division of Pathology and Laboratory Medicine [address] [place] [address] Bailey Transfuse RBC:Transfusion Date: 04/28/2021 (04/28/2021 11:21 PM CDT)TMP Interpretation Crossmatch (04/28/2021 1:48 PM CDT) TMP XM Interp RBC units crossmatched for transfusion appear ac ceptable. [facility] Comment: CANCER CENTER ARGENIS STANFORD, Dictated by: ARGENIS STANFORD, Dictated Date/Time: 04.29.20 8:06 AM CDT Transcribed Date/Time: 04.29.2021 8:06 AM CDT Electronically Signed By: MELLISSA STANFORD, on 04.29.2021 8:06 AM C Specimen Blood Performing Organization Address City/[facility] Phon e Number [facility] CANCER Unless otherwise noted, [address] all lab tests performed by: Division of Pathology and Laboratory Medicine [address] [place] [address] [place] RBC Product Ready for Mill Helper (04/27/2021 10:39 AM CDT) Pathologist [facility] PRBC Product Ready B2 Blood [facility] for Mill Helper BankComment: [facility] Product is ready for picking belt operator on April 28, 2021 20:13:40 CDT. Specimen Blood Performing Organization Address City/[facility] Phon e Number [facility] CANCER Unless otherwise noted, [address] all lab tests performed by: Division of Pathology and Laboratory Medicine [address] [place] [address] Prepare RBC:ATC, 1 Units (04/27/2021 10:39 AM CDT) Pathologist [facility] PRBC Product Ready 1Comment: Red Blood [facility] Cells Available - [facility] Order Form 03 when ready for product issue. Unit Number [id number] [facility] Product Code [id number] [facility] Unit Expiration [id number] [facility] Unit Blood Type 0600 [facility] Product Code Text RBCIRLR CPD AS1 [facility] 500mL [facility] Crossmatch [id number] [facility] Expiration Date CANCER CENTER Unit Irradiated IRRADIATED [facility] Dispense Status ISSUED [facility] CANCER [place] Unit Blood Type A Negative [facility] Product Mill Helper .BPAMComment: [facility] Location CANCER CENTER Specimen Blood Performing Organization Address City/State/[facility] Phon e Number [facility] CANCER Unless otherwise noted, [place], [place] [id number] [place] [address] all lab tests performed by: Division of Pathology and Laboratory Medicine [address] [facility] Pathology Biopsy Interpretation (03/16/2021 4:08 PM CDT)Only the most recent of 2 resultswithin the time period is included. 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 Gross Description A: [facility] Other, left great toe: A 2.0 x 1.0 x 0.8 cm portion of brown red soft and bone, entirely submitted in A1 for decalcification. BM Biomarker Block(s) N/A [facility] Disclaimer "Some tests reported [facility] here may have been developed and performance characteristics determined by [facility] Pathology and Laboratory Medicine. These tests have not been specifically cleared or approved by the U.S. Food and Drug Administration. If applicable, controls were reviewed and showed appropriate reactivity." Specimen Tissue - Other Performing Organization Address City/State/[facility] [place] [address] [address] [facility] X-ray Foot 3+ Views Left (03/16/2021 2:52 PM CDT)Only the most recent of2 resultswithin the time period is included. Specimen Impressions [id number] - 03/17/2021 7:20 AM CDT 1. Soft tissue tissue ulcer with septic arthritis and chronic osteomyelitis at IP joint of left big toe.. 2. Chronic osteomyelitis at medial asp ect of medial cuneiform in left foot. 3. No acute fracture or bone metastasi s. Narrative [id number] - 03/17/2021 7:20 AM CDT FULL RESULT: Examination: XR Left Foot, 3 Views, 03/16 2:52 PM. Clinical History: Renal cell carcinoma. Indication: Osteomyelitis of left great toe. Comparison: 3 views of left foot, 09/29/19. Technique: 3 views of left foot, 03/16/20. Findings: Since the prior study, a soft tissue ulc er has appeared in the plantar aspect of a diffusely swollen left great toe. Prominent bony erosion along the plantar aspect of the distal phalanx of the left gre at toe shows increased interval sclerosi s. Bony erosions are seen at the medial aspect of the IP joint of the great toe. Since the prior study, a small bone eros ion at the medial aspect of the medial cuneiform has progressed with increased sclerosis. No other bone or joint abnormality is se en in the left foot. Arteriosclerotic arterial calcifications are again seen in the soft tissues. Procedure Note Greg Starks MD - 03/17/2021 FULL RESULT: Examination: XR Left Foot, 3 Views, 03/16 2:52 PM. Clinical History: Renal cell carcinoma. Indication: Osteomyelitis of left great toe. Comparison: 3 views of left foot, 09/29/19. Technique: 3 views of left foot, 03/16/20. Findings: Since the prior study, a soft tissue ulc er has appeared in the plantar aspect of a diffusely swollen left great toe. Prominent bony erosion along the plantar aspect of the distal phalanx of the left great toe shows increased interval sclerosis. Bony erosi ons are seen at the medial aspect of the IP joint of the great toe. Since the prior study, a small bone eros ion at the medial aspect of the medial cuneiform has progressed with increased sclerosis. No other bone or joint abnormality is se en in the left foot. Arteriosclerotic arterial calcifications are again seen in the soft tissues. IMPRESSION: 1. Soft tissue tissue ulcer with septic arthritis and chronic osteomyelitis at IP joint of left big toe.. 2. Chronic osteomyelitis at medial aspe ct of medial cuneiform in left foot. 3. No acute fracture or bone metastasis . Performing Organization Address City/State/ZIP Code Phon e Number [id number] (ABNORMAL) Wound Culture w/Gram Stain (03/16/2021 1:40 PM CDT)Only the most recent of2 resultswithin the time period is included. Final Report Many Presumptive Pseudomonas aeruginosa U T MD SANTOS Moderate Providencia rettgeri [facility] ER (A) Path Review The results have been review ed and electronically signed by Pathologist: [place] MD TOM MARTINEZ MD #[id number] [facility] R (A) Gram Stain Report Few WBC's seen TN MD SANTOS Moderate Gram Negative Rods [facility] (A) Organism Pseudomonas aeruginosa [place] (A) [facility] Organism Providencia rettgeri [place] (A) [facility] Specimen Ulcer - First Toe Left Organism Antibiotic Method Susceptibility Pseudomonas aeruginosa *MARICRUZ expressed in MINIMUM INHIBITORY MARICRUZ: MINT mcg/mL CONCENTRATION Pseudomonas aeruginosa Piperacillin/Tazobactam MINIMUM INHIBITOR Y 64: Intermediate CONCENTRATION Pseudomonas aeruginosa Ceftazidime MINIMUM INHIBITORY 16: In termediate CONCENTRATION Pseudomonas aeruginosa Cefepime MINIMUM INHIBITORY Interm ediate CONCENTRATION Pseudomonas aeruginosa Imipenem MINIMUM INHIBITORY >=16: Resistant CONCENTRATION Pseudomonas aeruginosa Meropenem MINIMUM INHIBITORY >=16: Resistant CONCENTRATION Pseudomonas aeruginosa Amikacin MINIMUM INHIBITORY <=2: S usceptible CONCENTRATION Pseudomonas aeruginosa Tobramycin MINIMUM INHIBITORY <=1: S usceptible CONCENTRATION Pseudomonas aeruginosa Ciprofloxacin MINIMUM INHIBITORY 0.5: S usceptible CONCENTRATION Pseudomonas aeruginosa Levofloxacin MINIMUM INHIBITORY 2: Int ermediate CONCENTRATION Pseudomonas aeruginosa *Carbapenemase MINIMUM INHIBITORY Negati ve CONCENTRATION Comment: Carbapenemase NOT d etected, other mechanisms of resistance possible. Providencia rettgeri *MARICRUZ expressed in MINIMUM INHIBITORY MARICRUZ: M INT mcg/mL CONCENTRATION Providencia rettgeri Ampicillin MINIMUM INHIBITORY Resistan t CONCENTRATION Providencia rettgeri Ampicillin/Sulbactam MINIMUM INHIBITORY <=2 : Susceptible CONCENTRATION Providencia rettgeri Piperacillin/Tazobacta MINIMUM INHIBITORY < =4: Susceptible m CONCENTRATION Providencia rettgeri Cefpodoxime MINIMUM INHIBITORY <=0.25: Susceptible CONCENTRATION Providencia rettgeri Cefotaxime MINIMUM INHIBITORY <=1: Jaqui ceptible CONCENTRATION Providencia rettgeri Ceftazidime MINIMUM INHIBITORY <=1: Jaqui ceptible CONCENTRATION Providencia rettgeri Ceftriaxone MINIMUM INHIBITORY <=1: Jaqui ceptible CONCENTRATION Providencia rettgeri Cefepime MINIMUM INHIBITORY <=1: Jaqui ceptible CONCENTRATION Providencia rettgeri Aztreonam MINIMUM INHIBITORY <=1: Jaqui ceptible CONCENTRATION Providencia rettgeri Ertapenem MINIMUM INHIBITORY <=0.5: S usceptible CONCENTRATION Providencia rettgeri Amikacin MINIMUM INHIBITORY <=2: Jaqui ceptible CONCENTRATION Providencia rettgeri Gentamicin MINIMUM INHIBITORY 8: Inter mediate CONCENTRATION Providencia rettgeri Tobramycin MINIMUM INHIBITORY <=1: Jaqui ceptible CONCENTRATION Providencia rettgeri Ciprofloxacin MINIMUM INHIBITORY <=0.25: Susceptible CONCENTRATION Providencia rettgeri Levofloxacin MINIMUM INHIBITORY <=0.12: Susceptible CONCENTRATION Providencia rettgeri Moxifloxacin MINIMUM INHIBITORY <=0.25: Susceptible CONCENTRATION Providencia rettgeri Trimethoprim/Sulfa MINIMUM INHIBITORY >=320 : Resistant CONCENTRATION Performing Organization Address City/State/ZIP Code Phon e Number [facility] Unless otherwise noted, [address] all lab tests performed by: Division of Pathology and Laboratory Medicine [address] [place] (ABNORMAL) Alk Phos Total and Iso (02/02/2021 3:57 PM CDT) Alk Phos-[place] 151 (H) 40 - 129 [facility] unit/L CANCER CENTER Liver 1% (Alk 59.9 27.8 - 76.3 % [facility] Phos)-[facility] Liver 1 (Alk 90.4 (H) 16.2 - 70.2 [facility] Phos)-[place] IntlUnit/ [facility] [place] Liver 2% (Alk 12.2 (H) 0.0 - 8.0 % [facility] Phos)-[facility] Liver 2 (Alk 18.4 (H) 0.0 - 5.8 [facility] Phos)-[place] IntlUnit/[facility] Bone % (Alk 27.9 19.1 - 67.7 % [facility] Phos)-[facility] Bone (Alk 42.1 12.1 - 42.7 [facility] Phos)-[place] IntlUnit/ [facility]ER CENTER Intestine % (Alk 0.0 0.0 - 20.6 % [facility])-[place] [facility] [place] Intestine (Alk 0.0 0.0 - 11.0 [facility] Pho)-[place] IntlUnit/L CAN[facility]ER CENTER Placental ((Alk NotPresent Not present [facility] [facility] Comment: [facility] CENTER Test Performed by: [facility] - [address] [address] [place] Superintendent: Moody Rubio M.D. Ph.D.; CLIA# [id number] Specimen Blood Performing Organization Address City/[facility]/ZIP Code Phon e Number [facility] Unless otherwise noted, [address] all lab tests performed by: Division of Pathology and Laboratory Medicine [facility] [place] (ABNORMAL) Prothrombin Time with INR (02/02/2021 3:57 PM CDT)Only the most recent of2 resultswithin the time period is included. Pathologist Sig nature PT 14.6 (H)Comment: 11.5 - 13.9 [facility] C[facility] Verified INR 1.22 (H)Comment: 0.90 - 1.10 [facility] Verified Specimen Blood Narrative [facility] - 4:58 PM CDT This lab [facility] be scheduled at [facility] due to collection/proccessing restrictions: [facility] and [facility]. Performing Organization Address City/[facility] Phon e Number [facility] Unless otherwise noted, [address] all lab tests performed by: Division of Pathology and Laboratory Medicine [address] (ABNORMAL) IgG (12/05/2020 7:43 AM CDT) Pathologist Sig nature IgG 1,633 (H) 610 - 1,616 mg/dL [facility] Specimen Blood Performing Organization Address City/[facility] Code Phon e Number [facility] Unless otherwise noted, [address] all lab tests performed by: Division of Pathology and Laboratory Medicine [facility] [place] Glucose, Random (09/29/2020 12:35 PM TOWBOAT PILOT)Only the most recent of2 resultswithin the time period is included. Pathologist Sig nature Glucose Random 122 70 - 199 mg/dL [facility] Comment: Effective 03/22/16, the gluco se reference intervals have been updated based on [place] [employer] guidelines (Standards of Medical Care in Diabetes 2016. Diabetes Care 2016; 39: S13-S22) Fasting blood glucose: Normal: 70 99 mg/dL Impaired fasting glucose (in creased risk for diabetes or pre-diabetes): 100 125 mg/dL Diabetes mellitus: >/= 126 mg/dL Random blood glucose: Normal: 70 199 mg/dL Note: Random glucose >100 mg/dL is assoc iated with increased risk for diabetes Testing Performed at [facility] Lab Supervisor Plastering [facility], [address], [place] [address] Specimen Blood Performing Organization Address [facility] Phon e Number [facility] [address] [place] [address] [address] (ABNORMAL) Uric Acid (09/29/2020 12:35 PM TOWBOAT PILOT) Pathologist Sig nature Uric Acid 7.5 (H)Comment: Testing 3.4 - 7.0 mg/dL [facility] Performed at [facility] Lab Supervisor Plastering [facility], [address], [place] [address] Specimen Blood Performing Organization Address [facility] Phon e Number [facility] [address] [place] [address] [address] IR US NON-TARGET LIVER BIOPSY (09/06/2020 12:45 PM TOWBOAT PILOT) Specimen Narrative Getachew Flores MD - 09/07/2020 5:05 A M TOWBOAT PILOT Date of Procedure: 09/06/20 Attending Physician: Getachew Flores MD Senior Client Advisor: None Pre Procedure Diagnosis: Abnormal leve l of other serum enzyme; Liver function tests abnormal Post Procedure Diagnosis: Unchanged Indication: Evaluate cause/extent of l iver dysfunction. Title of Procedure: Percutaneous Ultrasound-Guided Non-Targe t Liver Biopsy Operative Findings: Percutaneous image-guided biopsy of the right liver parenchyma. Consent: The procedure, risks, indicat ions and alternatives were explained. All questions were answered a nd informed consent was obtained. I have reviewed the history and physical dictated by the mid-level practitioner / fellow. Sedation/Anesthesia: Moderate sedation for pain control and a nxiety was administered by a dedicated nurse under my supervision. There was continuous monitoring of oxygen saturation, heart rate and interm ittent monitoring of blood pressure during the procedure. Medicat ion given was midazolam and fentanyl. I was present for the admin istration of the medications indicated above. Procedure Events Event Event Time Sedation Start 09/06/2020 12:10 PM Sedation End 09/06/2020 12:35 PM Procedure in Detail: A time out was performed prior to the st art of the procedure and the correct patient, procedure, presence of consent, site, and side were confirmed with all members of the team. With the patient in the supine position, the skin overlying the area of interest was prepped and draped in the u sual sterile fashion. Lidocaine 1% was used for local anesthesia. Using an anterior approach under ultraso und image-guidance, a 17 gauge needle was advanced down to the liver pa renchyma. An image was obtained and placed into the medical record. Sa mples were obtained for evaluation. Sampling: Core biopsy: An 18 gauge needle was u sed to obtain samples for surgical pathology evaluation. Specimens Disposition: Diagnostic Biopsy: The biopsy samples we re submitted to pathology. Additional Comments: None Estimated Blood Loss: Minimal Immediate Complications: None Disposition: PACU Plan: No follow-up with Interventional Radi ology required. COVID-19 (PHUONG-CoV-2) PCR Asymptomatic (09/03/2020 9:22 AM TOWBOAT PILOT) COVID19 SARS Pre-Radiation Therapy [facility] Indication [facility] COVID19 SARS Result Not Detected Not Detected [facility] COVID19 SARS SARS-CoV-[address]ed[address] [facility] CANCER CENTER Reference Range: Not Detected Methodology: [facility] High-throughput SARS-CoV-2 RT-PCR Assay is a qualitative RT-PCR test intended for the detection of SARS CoV-2 RNA in nasal, nasopharyngeal and oropharyngeal swabs from indiv iduals who are suspected of COVID-19 by their health care provider. The test uti onesimo primers and probes for viral N1 and [...] patient history and other diagnostic information is ne cessary to determine patient infection status. Positive results do not rule out bacterial infection or co-infection with other viruses. Negative results do not preclude SARS- CoV-2 infection and should not be used as the sole basis for patient management decisions. This test was developed and its performance characteristics were validated by the CLIA-certified, high-complexity Molecular Diagnostics Laboratory (MDL) at [facility] for clinical use under the Food and Drug Administration (FDA) s Emergency Use Authorization. Factsheet for patients: https://www.[facility].org/COV EV36LIRWmptgeja Factsheet for healthcare providers: https://www.[facility].org/MDFYT39YUWMSN Test performed by: [facility] [address] [place] [address] Specimen Nasopharyngeal Swab Performing Organization Address City/State/ZIP Code Phon e Number [facility] CANCER Unless otherwise noted, [place] [address] CENTER all lab tests performed by: Division of Pathology and Laboratory Medicine [address] Anion Gap (09/03/2020 9:06 AM TOWBOAT PILOT) Pathologist Sig nature Anion Gap 6Comment: Testing performed 4 - 14 mEq/L [facility], [address] [place] [address] Specimen Blood Performing Organization Address City/[facility]/ZIP Code Phon e Number [place], [place] [id number] [place] [address] (ABNORMAL) Sodium Level (09/03/2020 9:06 AM TOWBOAT PILOT) Pathologist Sig nature Sodium Lvl 132 (L)Comment: Testing 136 - 145 mEq/L [facility] performed [facility], [address] [place] [address] Specimen Blood Performing Organization Address City/[facility]/ZIP [facility] Phon e Number [address] (ABNORMAL) Potassium (09/03/2020 9:06 AM TOWBOAT PILOT) Pathologist Sig nature Potassium Lvl 5.3 (H)Comment: 3.5 - 5.1 mEq/L [facility] Testing performed at [facility], [address] [place] [address] Specimen Blood Performing Organization Address City/State/[place] [address] [place] [address] Chloride Level (09/03/2020 9:06 AM TOWBOAT PILOT) Pathologist Sig nature Chloride 104Comment: Testing 98 - 107 mEq/L [place] performed at [facility], [address] [place] [address] Specimen Blood Performing Organization Address City/State/[place] [address] [place] [address] Carbon Dioxide Level (09/03/2020 9:06 AM TOWBOAT PILOT) Pathologist Sig nature CO2 22Comment: Testing 22 - 29 mEq/L [place] performed at [facility], [address] [place] [address] Specimen Blood Performing Organization Address City/[facility]/[place] [address] [place] [address] after 08/09/2020 Insurance Payer Benefit Plan Subscriber ID Effective Dates Phone Address Type / Group [employer] PPO POS [id number] [facility] [phone] p. 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
--- OUTSIDE RECORDS SUMMARY | 2021-08-09 13:57 | XMS REPORT | Continuity of Care Document ---
:1965 Author Organization [facility] t Address [address] [place] [address] Care Team Providers Name Role Phone [phone] Primary Care Physician Unavailable KIMBERLY Attending Clinician Unavailable GREG Attending Clinician Unavailable BAPTIST Attending Clinician Unavailable SYSTEM, NOT IN Attending Clinician Unavailable Eloy LAINEZ Attending Clinician Unavailable Tiffanie VILLEGAS Attending Clinician BECCA Attending Clinician Unavailable Becca VILLEGAS Attending Clinician Lamont CRAWFORD Attending Clinician Unavailable Lamont Crawford MD Attending Clinician Maxwell Marivel PT Attending Clinician Jaye SENIOR UI DEVELOPER Attending Clinician JAYE Attending Clinician Unavailable Eloy Kaplan MD Attending Clinician Eusebio JIANG Attending Clinician Danie ORR, B Attending Clinician Unavailable EUSEBIO Attending Clinician Unavailable Georgina VILLEGAS, Not In Attending Clinician Unavailable Adele VILLEGAS Attending Clinician Unavailable Az Toure RN Attending Clinician Unavailable Aurelio Kowalski Attending Clinician Shae MORRIS Attending Clinician Unavailable Ellyn Hill RN Attending Clinician Unavailable Anupam ARGUELLO Attending Clinician Unavailable ARTURO Attending Clinician Unavailable Arturo PAYAN Attending Clinician Lesly [facility] Attending Clinician RE Attending Clinician Unavailable ANN Attending Clinician Unavailable Ilda Jimenez MD Attending Clinician Ilda JIMENEZ Attending Clinician Unavailable Patricia VILLEGAS Attending Clinician PATRICIA Attending Clinician Unavailable Oswaldo ORR, Lei Attending Clinician Unavailable CARLOS GARZA Attending Clinician Unavailable Eloy Mckenzie MD Attending Clinician GREG Attending Clinician Unavailable DIOGO SALDAÑA Attending Clinician Unavailable Diogo Vera Attending Clinician Peace VILLEGAS Attending Clinician PEACE Attending Clinician Unavailable BAPTIST Attending Clinician Unavailable Shreya VILLEGAS Attending Clinician SHREYA Attending Clinician Unavailable Dionisio LITTLE Attending Clinician Daniel Mcdonald RN Attending Clinician Unavailable Chris ORR Attending Clinician Unavailable Sandra VILLEGAS Attending Clinician Jerri ORR Attending Clinician Unavailable Eloy Fam Attending Clinician Ignacia ORR, R Attending Clinician Unavailable Eloy MURPHY Attending Clinician Unavailable Judd HOYT Attending Clinician Unavailable Judd Hoyt NP Attending Clinician ADRY Attending Clinician Unavailable Anupam OMALLEY Attending Clinician Unavailable GALILEO Attending Clinician Unavailable Micehal Attending Clinician Unavailable Bakari Attending Clinician Unavailable Greg VILLEGAS Admitting Clinician CARLOS GARZA Admitting Clinician Unavailable ADRY Admitting Clinician Unavailable Payers Payer Name Policy Type Policy Number Effective Date Expiration Date S greta BCBSTX PPO [id number] 2013 00:00:00 BCBS PPO POS OUT [id number] 2013 OF STATE GENERIC 00:00:00 Problems Condition Condition Condition Status Onset Resolution Last Treating Co mments Source Name Details Category Date Date Treatment Clinician Date 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 Added automatic ally from request for surgery [id number] Other Other Disease Active 2018-08 secondary secondary 2 Griffin rso hypertensi hypertensi 00:00: n on on 00 Type 2 Type 2 Disease Active 2018-08 diabetes diabetes 2 Gerhard o mellitus mellitus 00:00: n without without 00 complicati complicati on on Infection Infection Disease Active following following 02-25 [...] carcinoma 02-19 Griffin rso 00:00: n 00 Coronary Coronary Disease Active arterioscl arterioscl 2-19 An derso erosis erosis 00:00: n 00 Diabetes Diabetes Disease [facility] Heart Disease Active [facility] disease [facility] Hypertensi Hypertensi Disease Active [facility] on on Health Pneumonia Pneumonia Disease Active [facility] Pathologic Pathologic Problem Active U telly al al ity of fracture fracture [place] of right of right Physic i femur due femur due ans to to neoplastic neoplastic disease, disease, initial initial encounter encounter Pathologic Pathologic Problem Active U telly al al ity of fracture fracture [place] [...] fracture ity of of right of right [place] femur in femur in Physic i neoplastic neoplastic an s disease disease with with nonunion nonunion Cellulitis Cellulitis Problem Active U nivers of of ity of drainage drainage [place] site, site, Physici post-opera post-opera an s tive tive Draining Draining Problem Active Unive rs postoperat postoperat it y of [place] wound, [place] initial initial Physici encounter encounter ans Draining Draining Problem Active Unive rs postoperat postoperat it y of [place], [place] subsequent subsequent Ph ysici encounter encounter ans Non-pressu Diagnosis Active 2021-06-01 Memoria re chronic 20:41:29 l ulcer of Alexi other part 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 412.2.7.2. 807179 Type 2 Diagnosis Active 2021-06-01 Mem oria diabetes 20:41:29 l mellitus Type 2 Khang n with diabetes diabetic mellitus neuropathy with , not diabetic otherwise neuropathy specified , not otherwise specified Active 1 1.2.840.11 4350.1.13. 412.2.7.2. [id number] Charct's Diagnosis Active 2021-06-01 Memoria joint, 20:41:29 l left ankle Khang n and foot Charct's joint, left ankle and foot Active 1 1.2.840.11 4350.1.13. 412.2.7.2. 144345 Charct's Diagnosis Active 2021-06-01 Memoria joint, 20:41:29 l right [place] ankle and Charct's foot joint, right ankle and foot Active 1 1.2.840.11 4350.1.13. 412.2.7.2. 948642 Infection Diagnosis Active 2021-06-01 Memoria following 20:41:29 l a [place] procedure, Infection superficia following l a incisional procedure, surgical superficia site, l sequela incisional surgical site, sequela Active 1 1.2.840.11 4350.1.13. 412.2.7.2. 957402 Non-pressu Diagnosis Active 2021-06-01 Memoria re chronic 20:41:29 l ulcer of [place] other part Non-pressu of left re chronic foot with ulcer of fat layer other part exposed of left foot with fat layer exposed Active 1 1.2.840.11 4350.1.13. 412.2.7.2. 458580 Elevation Diagnosis Active 2021-06-01 Memoria of levels 20:41:29 l of alanine Khang n transamina Elevation se (ALT) of levels of alanine transamina se (ALT) Active 1 1.2.840.11 4350.1.13. 412.2.7.2. 937816 Other Diagnosis Active 2021-06-01 Mem oria complicati 20:41:29 l ons of Other [place] procedures complicati , not ons of elsewhere procedures classified , not , sequela elsewhere classified , sequela Active 1 1.2.840.11 4350.1.13. 412.2.7.2. 193096 Abnormal Diagnosis [facility] l other Abnormal Khang n serum level of enzyme other serum enzyme Active 1 1.2.840.11 4350.1.13. 412.2.7.2. 012509 Diabetic Diagnosis Active 2021-06-01 M emoria peripheral 20:41:29 l neuropathy Diabetic He rmann peripheral neuropathy Active 06/01/2021 1.2.840.11 4350.1.13. 412.2.7.2. 667381 Generalize Diagnosis Active 2021-06-01 Memoria d edema 20:41:29 l Alexi Generalize d edema Active 1 1.2.840.11 4350.1.13. 412.2.7.2. 104319 SARS-CoV-2 Diagnosis Active 2021-06-01 Memoria vaccinatio 20:41:29 l n [place] SARS-CoV-2 vaccinatio n Active 06/01/2021 1.2.840.11 4350.1.13. 412.2.7.2. 509819 Injury, Diagnosis Active 2021-06-01 Me moria unspecifie 20:41:29 l d, sequela Injury, Her sullivan unspecifie d, sequela Active 06/01/2021 1.2.840.11 4350.1.13. 412.2.7.2. 343466 Liver Diagnosis Active 2021-06-01 Mem oria enzymes 20:41:29 l abnormal Liver [place] enzymes abnormal Active 1 1.2.840.11 4350.1.13. 412.2.7.2. 067950 Neuropathi Diagnosis Active 2021-06-01 Memoria c ulcer 20:41:29 l Alexi Neuropathi c ulcer Active 1 1.2.840.11 4350.1.13. 412.2.7.2. 935361 Stasis Diagnosis Active 2021-06-01 Mem oria dermatitis 20:41:29 l Stasis Alexi dermatitis Active 06/01/2021 1.2.840.11 4350.1.13. 412.2.7.2. 116678 Anemia in Diagnosis Active 2021-06-01 Memoria neoplastic 20:41:29 l disease Anemia Alexi in neoplastic disease Active 1 1.2.840.11 4350.1.13. 412.2.7.2. 695838 Elevated Diagnosis Active 2021-06-01 M emoria liver 20:41:29 l enzymes Elevated Lelia nn level liver enzymes level Active 1 1.2.840.11 4350.1.13. 412.2.7.2. 321703 Diabetes Diagnosis Active 2021-06-01 M emoria mellitus 20:41:29 l due to Diabetes Khang n underlying mellitus condition due to with foot underlying ulcer condition with foot ulcer Active 1 1.2.840.11 4350.1.13. 412.2.7.2. 266587 Other Diagnosis Active 2021-06-01 Mem oria lymphedema 20:41:29 l Other [place] lymphedema Active 06/01/2021 1.2.840.11 4350.1.13. 412.2.7.2. 950379 Liver Diagnosis Active 2021-06-01 Mem oria function 20:41:29 l tests Liver Alexi abnormal function tests abnormal Active 1 1.2.840.11 4350.1.13. 412.2.7.2. 868459 History of Diagnosis Active 2021-06-01 Memoria antiplatel 20:41:29 l et agent History Lelia nn therapy of antiplatel et agent therapy Active 1 1.2.840.11 4350.1.13. 412.2.7.2. 141529 Stented Diagnosis Active 2021-06-01 Me moria coronary 20:41:29 l artery Stented [place] coronary artery Active 1 1.2.840.11 4350.1.13. 412.2.7.2. 892212 Suspected Diagnosis Active 2021-06-01 Memoria COVID-19 20:41:29 l [place] Suspected COVID-19 Active 1 1.2.840.11 4350.1.13. 412.2.7.2. 324686 Renal Diagnosis Active 2021-06-01 Mem oria insufficie 20:41:29 l ncy Renal [place] insufficie ncy Active 1 1.2.840.11 4350.1.13. 412.2.7.2. 347811 Raised TSH Diagnosis Active 2021-06-01 Memoria level 20:41:29 l Raised [place] TSH level Active 1 1.2.840.11 4350.1.13. 412.2.7.2. 601518 Serum Diagnosis Active 2021-06-01 Mem oria creatinine 20:41:29 l raised Serum [place] creatinine raised Active 1 1.2.840.11 4350.1.13. 412.2.7.2. 779179 Hyperkalem Diagnosis Active 2021-06-01 Memoria ia 20:41:29 l [place] Hyperkalem ia Active 06/01/2021 1.2.840.11 4350.1.13. 412.2.7.2. 047595 Pain in Diagnosis Active 2021-06-01 Me moria joint, not 20:41:29 l otherwise Pain in Herm deysi specified joint, not otherwise specified Active 1 1.2.840.11 4350.1.13. 412.2.7.2. 273724 Edema of Diagnosis Active 2021-06-01 M emoria lower 20:41:29 l extremity Edema of Her sullivan lower extremity Active 1 1.2.840.11 4350.1.13. 412.2.7.2. 439691 Other Diagnosis Active 2021-06-01 Mem oria specified 20:41:29 l hypothyroi Other Lelia nn dism specified hypothyroi dism Active 1 1.2.840.11 4350.1.13. 412.2.7.2. 718221 Atheroscle Diagnosis Active 2021-05-12 Memoria rotic 16:53:14 l heart [place] disease of Atheroscle jamul rotic coronary heart artery disease of without jamul angina coronary pectoris, artery not without otherwise angina specified pectoris, not otherwise specified Active 1 1.2.840.11 4350.1.13. 412.2.7.2. 531742 Malignant Diagnosis Active 2021-06-01 Memoria neoplasm 20:41:29 l of Alexi unspecifie Malignant d kidney, neoplasm except of renal unspecifie pelvis d kidney, except renal pelvis Active 1 1.2.840.11 4350.1.13. 412.2.7.2. 656244 Allergies, Adverse Reactions, Alerts Allergy Allergy Status Severity Reaction(s) Onset Inactive Treating Comm ents Source Name Type Date Date Clinician Sarah Narvaez Active [facility] ty to 12-23 Health adverse 00:00: reaction 00 s Adhesive Adhesive Active Dermatitis Me moria Tape-Ester Tape-Ester 7- l icones icones 00:00: [place] 00 Wound Drug Active Other [facility] Dressing Allergy 02-24 reaction( Heal th Adhesive 00:00: s): 00 Dermatiti sPlastic onlyPlast ic onlyPlast ic only Codeine Allergy Active [facility] to drug ity of ves (finding [place] ) Physici ans Family History Family Member Diagnosis Comments Start Date Stop Date Source Natural father Diabetes MD [place] Natural father Hyperlipidemia And laina Natural father Hypertension Jose L son Maternal grandfather Lung cancer MD To Natural mother Diabetes MD [place] Paternal grandmother Colon cancer MD To Social History Social Habit Start Date Stop Date Quantity Comments Source Exposure to Not sure [facility] SARS-CoV-2 (event) History SDIL MD To Alcohol Std Drinks History [facility] MD To Alcohol Binge History [facility] MD To Alcohol Comment Alcohol intake 2021-03-30 2021-03-30 Lifetime MD [place] 00:00:00 00:00:00 non-drinker (finding) Tobacco use and 2019-02-24 2019-02-24 Smokeless tobacco MD To exposure 00:00:00 00:00:00 non-user History SDOH 2019-02-24 2019-02-24 1 MD To Alcohol Frequency 00:00:00 00:00:00 [birth year] MD [place] on 00:00:00 00:00:00 Smoking Status Start Date Stop Date Source Tobacco smoking [facility] Medications Ordered Filled Start Stop Current Ordering Indication Dosage Frequency Signature Comments Components Source Medication Medication Date Date Medication? Clinician (SIG) Name Name dilTIAZem 2020-08 Yes 87 300mg QD Take 300 UT CD 1-03 mg by Health (Cardizem 08:55: mouth 1 CD) 300 MG 31 (one) time 24 hr each day. capsule carvedilol 2020-08 Yes 87 Take by UT (Coreg) 25 1-03 mouth 2 Health MG tablet 08:55: (two) 31 times a day with meals. guanFACINE 2020-08 Yes 87 2mg Q.5D Take 2 mg UT (Tenex) 2 1-03 by mouth 2 Heal th MG tablet 08:55: (two) 31 times a day. multivitami 2020-08 Yes 1{tbl} QD Take 1 UT n 1-03 tablet by Health (Theragran) 08:55: mouth 1 tablet 31 (one) time each day. minocycline 2020-08 Yes 3304 100mg Q.5D Take 100 U T 100 MG 1-03 mg by Health capsule 08:55: mouth 2 31 (two) times a day. ciprofloxac 2020-08 202- No [id number] 750mg Q.5D Take 1 UT in (Cipro) 08-2914 tablet Health 750 MG 00:00: 05:59 (750 mg tablet 00 :00 total) by mouth 2 (two) times a day for 10 days. ezetimibe 2020-08 Yes 10mg Take 10 mg MD (Zetia) 10 0-25 by mouth Jose L so mg tablet 14:37: at n 41 bedtime. aspirin 81 2020-08 Yes 81mg Take 81 mg M D mg EC 0-25 by mouth Anderso tablet 14:37: daily. n 41 cholecalcif 2020-08 Yes 2000U Take 2,000 MD trever, 0-25 Units by Anderso vitamin D3, 14:37: mouth n 2,000 unit 41 twice capsule daily. Bacillus 2020-08 Yes 1{capsu Take 1 MD coagulans 0-25 le} capsule by Griffin fisher (PROBIOTIC, 14:37: mouth n B. 41 daily. COAGULANS,) 10 billion cell cpDR multivit-mi 2020-08 Yes 1{tbl} Take 1 MD ns/iron/fol 0-25 tablet by And erso ic/lycop 14:37: mouth n (CENTRUM 41 daily. MEN ORAL) vit A/vit 2020-08 Yes 1{tbl} Take 1 MD C/vit 0-25 tablet by Anderso E/zinc/dominic 14:37: mouth n er 41 daily. (PRESERVISI ON AREDS ORAL) ascorbic 2020-08 Yes 1000mg Take 1,000 M D acid, 0-25 mg by Anderso vitamin C, 14:37: mouth n (vitamin C) 41 daily. 1000 mg tablet flash 2020-08 Yes FreeStyle MD glucose 0-25 Veronica 14 Anderso sensor 14:37: Day Sensor n (FreeStyle 41 kit Veronica 14 Day Sensor) kit mirabegron 2020-08 Yes Myrbetriq MD (Myrbetriq) 0-25 50 mg Anderso 50 mg Tb24 14:37: tablet,ext n 41 ended release traMADol 2020-08 Yes 50mg Take 50 mg MD (ULTRAM) 50 0-25 by mouth Griffin rso mg tablet 14:37: every 4 n 41 (four) hours as needed. meropenem 2020-08- No Infuse MD (MERREM 0-25 10-25 intravenou Jose L so INTRAVENOUS 14:37: 00:00 sly. 3 x n ) 41 :00 daily for at least another month heparin 2020-08- No Infuse MD sod,porcine 0-25 10-25 intravenou A nderso /0.9 % NaCl 14:37: 00:00 sly. n (HEPARIN 41 :00 FLUSH INTRAVENOUS ) DAPTOMYCIN 2020-08- No Infuse MD INTRAVENOUS 0-25 10-25 intravenou A nderso 14:37: 00:00 sly. Has n 41 :00 about 1 month left dilTIAZem 2020-08 Yes 87 300mg QD Take 300 UT CD 0-13 mg by Health (Cardizem 09:28: mouth 1 CD) 300 MG 09 (one) time 24 hr each day. capsule carvedilol 2020-08 Yes 87 Take by UT (Coreg) 25 0-13 mouth 2 Health MG tablet 09:28: (two) 09 times a day with meals. guanFACINE 2020-08 Yes 87 2mg Q.5D Take 2 mg UT (Tenex) 2 0-13 by mouth 2 Heal th MG tablet 09:28: (two) 09 times a day. multivitami 2020-08 Yes 1{tbl} QD Take 1 UT n 0-13 tablet by Health (Theragran) 09:28: mouth 1 tablet 09 (one) time each day. minocycline 2020-08 Yes 3304 100mg Q.5D Take 100 U T 100 MG 0-13 mg by Health capsule 09:28: mouth 2 09 (two) times a day. ciprofloxac 2020-08- Yes [id number] 750mg Q.5D Take 1 UT in (Cipro) 0-13 10-21 tablet Health 750 MG 00:00: 04:59 (750 mg tablet 00 :00 total) by mouth 2 (two) times a day for 7 days. ezetimibe 2020-08 Yes Take 10 mg Me moria (ZETIA) 10 0-06 by mouth l mg tablet 20:41: at [place] 29 bedtime. aspirin 81 2020-08 Yes Take 81 mg M emoria mg EC 0-06 by mouth l tablet 20:41: daily. [place] 29 cholecalcif 2020-08 Yes Take 2,000 Memoria trevre, 0-06 Units by l vitamin D3, 20:41: mouth Lelia nn 2,000 unit 29 twice capsule daily. Bacillus 2020-08 Yes Take 1 Memoria coagulans 0-06 capsule by l (PROBIOTIC, 20:41: mouth Lelia nn B. 29 daily. COAGULANS,) 10 billion cell cpDR multivit-mi 2020-08 Yes Take 1 Shravan jennie ns/iron/fol 0-06 tablet by l ic/lycop 20:41: mouth Alexi (CENTRUM 29 daily. MEN ORAL) vit A/vit 2020-08 Yes Take by Memor ia C/vit 0-06 mouth. l E/zinc/dominic 20:41: Khang n er 29 (PRESERVISI ON AREDS ORAL) ascorbic 2020-08 Yes Take 1,000 Mem oria acid, 0-06 mg by l vitamin C, 20:41: mouth Khang n (vitamin C) 29 daily. 1000 mg tablet flash 2020-08 Yes FreeStyle Memoria glucose 0-06 Veronica 14 l sensor 20:41: Day Sensor Lelia nn (FreeStyle 29 kit Veronica 14 Day Sensor) kit mirabegron 2020-08 Yes Myrbetriq Me moria (Myrbetriq) 0-06 50 mg l 50 mg Tb24 20:41: tablet,ext H ermann 29 ended release meropenem 2020-08 Yes Infuse Memori a (MERREM 0-06 intravenou l INTRAVENOUS 20:41: sly. 3 x H erm ) 29 daily for at least another month heparin 2020-08 Yes Infuse Memoria sod,porcine 0-06 intravenou l /0.9 % NaCl 20:41: sly. Khang n (HEPARIN 29 FLUSH INTRAVENOUS ) DAPTOMYCIN 2020-08 Yes Infuse Memor ia INTRAVENOUS 0-06 intravenou l 20:41: sly. Has Alexi 29 about 1 month left levothyroxi 2020-08 Yes TAKE ONE Me moria ne 0-05 TABLET BY l (SYNTHROID, 00:00: MOUTH Lelia nn LEVOTHROID) 00 DAILY 125 mcg tablet levothyroxi 2020-08 Yes Other TAKE ONE M D ne 0-05 specified TABLET BY Jose L mendez (SYNTHROID, 00:00: hypothyroid MOUTH n LEVOTHROID) 00 ism DAILY 125 mcg tablet gabapentin Yes [facility] (Neurontin) 9-29 Health 300 MG 00:00: capsule 00 traMADol Yes UT (Ultram) 50 9-29 Health MG tablet 00:00: 00 gabapentin Yes [facility] (Neurontin) 9-29 Health 300 MG 00:00: capsule 00 traMADol Yes UT (Ultram) 50 9-29 Health MG tablet 00:00: 00 ezetimibe Yes Take 10 mg Me moria (ZETIA) 10 02 by mouth l mg tablet 16:22: at [place] 57 bedtime. aspirin 81 Yes Take 81 mg M emoria mg EC 04-28 by mouth l tablet 16:22: daily. [place] 57 cholecalcif Yes Take 2,000 Memoria trever, 9-02 Units by l vitamin D3, 16:22: mouth Lelia nn 2,000 unit 57 twice capsule daily. Bacillus Yes Take 1 Memoria coagulans -02 capsule by l (PROBIOTIC, 16:22: mouth Lelia nn B. 57 daily. COAGULANS,) 10 billion cell cpDR multivit-mi Yes Take 1 Shravan jennie ns/iron/fol 04-28 tablet by l ic/lycop 16:22: mouth Alexi (CENTRUM 57 daily. MEN ORAL) vit A/vit Yes Take by Memor ia C/vit 902 mouth. l E/zinc/dominic 16:22: Khang n er 57 (PRESERVISI ON AREDS ORAL) ascorbic Yes Take 1,000 Mem oria acid, 9-02 mg by l vitamin C, 16:22: mouth Khang n (vitamin C) 57 daily. 1000 mg tablet flash Yes FreeStyle Memoria glucose 04-28 Veronica 14 l sensor 16:22: Day Sensor Lelia nn (FreeStyle 57 kit Veronica 14 Day Sensor) kit mirabegron Yes Myrbetriq Me moria (Myrbetriq) 9-02 50 mg l 50 mg Tb24 16:22: tablet,ext H ermann 57 ended release meropenem Yes Infuse Memori a (MERREM 9-02 intravenou l INTRAVENOUS 16:22: sly. 3 x H ermann ) 57 daily for at least another month heparin Yes Infuse Memoria sod,porcine 9- intravenou l /0.9 % NaCl 16:22: sly. Khang n (HEPARIN 57 FLUSH INTRAVENOUS ) DAPTOMYCIN Yes Infuse Memor ia INTRAVENOUS 9- intravenou l 16:22: sly. Has Alexi 57 about 1 month left fluconazole Yes Take 100 Me moria (DIFLUCAN) 9-02 mg by l 100 mg 16:22: mouth [place] tablet 57 daily. minocycline Yes Take 100 Me moria (MINOCIN) 9-02 mg by l 100 mg 16:22: mouth. Alexi capsule 57 fluconazole Yes Take 100 Me moria (DIFLUCAN) 9-02 mg by l 100 mg 16:22: mouth [place] tablet 57 daily. minocycline Yes Take 100 Me moria (MINOCIN) 9-02 mg by l 100 mg 16:22: mouth. [place] capsule 57 fluconazole 2020- No 100mg Take 100 MD (DIFLUCAN) 9-02 09-02 mg by Anderso 100 mg 16:01: 00:00 mouth n tablet 26 :00 daily. minocycline 2020- No 100mg Take 100 MD (MINOCIN) 9-02 09-02 mg by Anderso 100 mg 16:01: 00:00 mouth. n capsule 26 :00 fluconazole No Take 100 Me moria (DIFLUCAN) 9-02 mg by l 100 mg 00:00: mouth [place] tablet 00 daily. minocycline No Take 100 Me moria (MINOCIN) 9-02 mg by l 100 mg 00:00: mouth. Alexi capsule 00 HYDROcodone 2020- No [id number] 1{tbl} Q6H Take 1 UT -acetaminop -04-27 tablet by He alth hen ([place]) 00:00: 04:59 mouth 10-325 MG 00 :00 every 6 tablet (six) hours if needed for severe pain for up to 5 days. dilTIAZem 2021-0 Yes 87 300mg QD Take 300 UT CD 8-25 mg by Health (Cardizem 13:15: mouth 1 CD) 300 MG 19 (one) time 24 hr each day. capsule carvedilol 1-0 Yes 87 Take by UT (Coreg) 25 8-25 mouth 2 Health MG tablet 13:15: (two) 19 times a day with meals. guanFACINE 2020-0 Yes 87 2mg Q.5D Take 2 mg UT (Tenex) 2 8-25 by mouth 2 Heal th MG tablet 13:15: (two) 19 times a day. multivitami 2021-0 Yes 1{tbl} QD Take 1 UT n 8-25 tablet by Health (Theragran) 13:15: mouth 1 tablet 19 (one) time each day. minocycline 1-0 Yes 3304 100mg Q.5D Take 100 U T 100 MG 8-25 mg by Health capsule 13:15: mouth 2 19 (two) times a day. dilTIAZem 2020-0 Yes 87 300mg QD Take 300 UT CD 8-25 mg by Health (Cardizem 13:15: mouth 1 CD) 300 MG 19 (one) time 24 hr each day. capsule carvedilol 2020-0 Yes 87 Take by UT (Coreg) 25 8-25 mouth 2 Health MG tablet 13:15: (two) 19 times a day with meals. guanFACINE 2021-0 Yes 87 2mg Q.5D Take 2 mg UT (Tenex) 2 8-25 by mouth 2 Heal th MG tablet 13:15: (two) 19 times a day. multivitami 2021-0 Yes 1{tbl} QD Take 1 UT n 8-25 tablet by Health (Theragran) 13:15: mouth 1 tablet 19 (one) time each day. minocycline 2021-0 Yes 3304 100mg Q.5D Take 100 U T 100 MG 8-25 mg by Health capsule 13:15: mouth 2 19 (two) times a day. multivitami 2021-0 Yes 1{tbl} QD Take 1 UT n 8-25 tablet by Health (Theragran) 08:15: mouth 1 tablet 19 (one) time each day. minocycline 2021-0 Yes 3304 100mg Q.5D Take 100 U T 100 MG 8-25 mg by Health capsule 08:15: mouth 2 19 (two) times a day. dilTIAZem 2021-0 Yes 87 300mg QD Take 300 UT CD 8-25 mg by Health (Cardizem 08:15: mouth 1 CD) 300 MG 19 (one) time 24 hr each day. capsule carvedilol 2021-0 Yes 87 Take by UT (Coreg) 25 8-25 mouth 2 Health MG tablet 08:15: (two) 19 times a day with meals. guanFACINE 2021-0 Yes 87 2mg Q.5D Take 2 mg UT (Tenex) 2 8-25 by mouth 2 Heal th MG tablet 08:15: (two) 19 times a day. multivitami 2021-0 Yes 1{tbl} QD Take 1 UT n 8-25 tablet by Health (Theragran) 08:15: mouth 1 tablet 19 (one) time each day. minocycline 2021-0 Yes 3304 100mg Q.5D Take 100 U T 100 MG 8-25 mg by Health capsule 08:15: mouth 2 19 (two) times a day. dilTIAZem 2021-0 Yes 87 300mg QD Take 300 UT CD 8-25 mg by Health (Cardizem 08:15: mouth 1 CD) 300 MG 19 (one) time 24 hr each day. capsule carvedilol 2021-0 Yes 87 Take by UT (Coreg) 25 8-25 mouth 2 Health MG tablet 08:15: (two) 19 times a day with meals. guanFACINE 2021-0 Yes 87 2mg Q.5D Take 2 mg UT (Tenex) 2 8-25 by mouth 2 Heal th MG tablet 08:15: (two) 19 times a day. multivitami 2021-0 Yes 1{tbl} QD Take 1 UT n 8-25 tablet by Health (Theragran) 08:15: mouth 1 tablet 19 (one) time each day. minocycline 2021-0 Yes 3304 100mg Q.5D Take 100 U T 100 MG 8-25 mg by Health capsule 08:15: mouth 2 19 (two) times a day. dilTIAZem 2021-0 Yes 87 300mg QD Take 300 UT CD 8-25 mg by Health (Cardizem 08:15: mouth 1 CD) 300 MG 19 (one) time 24 hr each day. capsule carvedilol 2021-0 Yes 87 Take by [facility] (Coreg) 25 8-25 mouth 2 Health MG tablet 08:15: (two) 19 times a day with meals. guanFACINE 2021-0 Yes 87 2mg Q.5D Take 2 mg [facility] (Tenex) 2 8-25 by mouth 2 [facility]al th MG tablet 08:15: (two) 19 times a day. dilTIAZem 2021-0 Yes 87 300mg QD Take 300 UT CD 8-25 mg by Health (Cardizem 08:15: mouth 1 CD) 300 MG 19 (one) time 24 hr each day. capsule carvedilol 2021-0 Yes 87 Take by [facility] (Coreg) 25 8-25 mouth 2 Health MG tablet 08:15: (two) 19 times a day with meals. guanFACINE 2021-0 Yes 87 2mg Q.5D Take 2 mg [facility] (Tenex) 2 8-25 by mouth 2 [facility]al th MG tablet 08:15: (two) 19 times a day. multivitami 2021-0 Yes 1{tbl} QD Take 1 UT n 8-25 tablet by [employer] (Theragran) 08:15: mouth 1 tablet 19 (one) time each day. minocycline 2021-0 Yes 3304 100mg Q.5D Take 100 U T 100 MG 8-25 mg by Health capsule 08:15: mouth 2 19 (two) times a day. dilTIAZem 2021-0 Yes 87 300mg QD Take 300 UT CD 8-25 mg by Health (Cardizem 08:15: mouth 1 CD) 300 MG 19 (one) time 24 hr each day. capsule carvedilol 2021-0 Yes 87 Take by [facility] (Coreg) 25 8-25 mouth 2 Health MG tablet 08:15: (two) 19 times a day with meals. guanFACINE 2021-0 Yes 87 2mg Q.5D Take 2 mg [facility] (Tenex) 2 8-25 by mouth 2 [facility]al th MG tablet 08:15: (two) 19 times a day. multivitami 2021-0 Yes 1{tbl} QD Take 1 UT n 8-25 tablet by [employer] (Theragran) 08:15: mouth 1 tablet 19 (one) time each day. minocycline 2021-0 Yes 3304 100mg Q.5D Take 100 U T 100 MG 8-25 mg by Health capsule 08:15: mouth 2 19 (two) times a day. dilTIAZem 2021-0 Yes 87 300mg QD Take 300 UT CD 8-25 mg by Health (Cardizem 08:15: mouth 1 CD) 300 MG 19 (one) time 24 hr each day. capsule carvedilol 1-0 Yes 87 Take by [facility] (Coreg) 25 8-25 mouth 2 Health MG tablet 08:15: (two) 19 times a day with meals. guanFACINE 1-0 Yes 87 2mg Q.5D Take 2 mg [facility] (Tenex) 2 8-25 by mouth 2 [facility]al th MG tablet 08:15: (two) 19 times a day. multivitami 2021-0 Yes 1{tbl} QD Take 1 UT n 8-25 tablet by [employer] (Theragran) 08:15: mouth 1 tablet 19 (one) time each day. multivitami 2021-0 Yes 1{tbl} QD Take 1 UT n 8-25 tablet by [employer] (Theragran) 08:15: mouth 1 tablet 19 (one) time each day. minocycline 1-0 Yes 3304 100mg Q.5D Take 100 U T 100 MG 8-25 mg by Health capsule 08:15: mouth 2 19 (two) times a day. dilTIAZem 2020-0 Yes 87 300mg QD Take 300 UT CD 8-25 mg by [facility] (Cardizem 08:15: mouth 1 CD) 300 MG 19 (one) time 24 hr each day. capsule carvedilol 2020-0 Yes 87 Take by [facility] (Coreg) 25 8-25 mouth 2 Health MG tablet 08:15: (two) 19 times a day with meals. guanFACINE 2021-0 Yes 87 2mg Q.5D Take 2 mg [facility] (Tenex) 2 8-25 by mouth 2 [facility]al th MG tablet 08:15: (two) 19 times a day. dilTIAZem 1-0 Yes 87 300mg QD Take 300 UT CD 8-25 mg by [facility] (Cardizem 08:15: mouth 1 CD) 300 MG 19 (one) time 24 hr each day. capsule carvedilol 1-0 Yes 87 Take by [facility] (Coreg) 25 8-25 mouth 2 Health MG tablet 08:15: (two) 19 times a day with meals. guanFACINE 1-0 Yes 87 2mg Q.5D Take 2 mg [facility] (Tenex) 2 8-25 by mouth 2 [facility]al th MG tablet 08:15: (two) 19 times a day. minocycline 2021-0 Yes 3304 100mg Q.5D Take 100 U T 100 MG 8-25 mg by Health capsule 08:15: mouth 2 19 (two) times a day. dilTIAZem 2021-0 Yes 87 300mg QD Take 300 UT CD 8-25 mg by [facility] (Cardizem 08:15: mouth 1 CD) 300 MG 19 (one) time 24 hr each day. capsule carvedilol 2020-0 Yes 87 Take by [facility] (Coreg) 25 8-25 mouth 2 Health MG tablet 08:15: (two) 19 times a day with meals. guanFACINE 2020-0 Yes 87 2mg Q.5D Take 2 mg [facility] (Tenex) 2 8-25 by mouth 2 [facility]al th MG tablet 08:15: (two) 19 times a day. multivitami 2020-0 Yes 1{tbl} QD Take 1 UT n 8-25 tablet by [facility] (Theragran) 08:15: mouth 1 tablet 19 (one) time each day. minocycline 1-0 Yes 3304 100mg Q.5D Take 100 U T 100 MG 8-25 mg by Health capsule 08:15: mouth 2 19 (two) times a day. dilTIAZem 1-0 Yes 87 300mg QD Take 300 UT CD 8-25 mg by [facility] (Cardizem 08:15: mouth 1 CD) 300 MG 19 (one) time 24 hr each day. capsule carvedilol 2020-0 Yes 87 Take by [facility] (Coreg) 25 8-25 mouth 2 Health MG tablet 08:15: (two) 19 times a day with meals. guanFACINE 2021-0 Yes 87 2mg Q.5D Take 2 mg [facility] (Tenex) 2 8-25 by mouth 2 [facility]al th MG tablet 08:15: (two) 19 times a day. ondansetron 2021-0 Yes [facility] (Zofran) 8 8-24 Health MG tablet 00:00: 00 ondansetron 2021-0 Yes [facility] (Zofran) 8 8-24 Health MG tablet 00:00: 00 everolimus, 2020-0 Yes Take 1 Shravan jennie antineoplas 7-29 tablet (5 l tic, 00:00: mg) by Alexi (AFINITOR) 00 mouth 5 mg tablet daily. everolimus, 2020-0 Yes Take 1 Shravan jennie antineoplas 7-29 tablet (5 l tic, 00:00: mg) by [place] (AFINITOR) 00 mouth 5 mg tablet daily. 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 mupirocin 2020-0 Yes Apply [facility] (BACTROBAN) 7-21 topically l 2% ointment 00:00: to [place] n 00 affected area(s) twice daily. mupirocin 2020-0 No Apply [facility] (BACTROBAN) 7-21 topically l 2% ointment 00:00: to [place] n 00 affected area(s) twice daily. 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 exposed lidocaine 2 2020-0 Yes APPLY 5 Mem oria % solution 7-12 MINUTES l 00:00: BEFORE [place] 00 ACETIC ACID ON WOUND lidocaine 2 2020-0 Yes APPLY 5 Mem oria % solution 7-12 MINUTES l 00:00: BEFORE [place] 00 ACETIC ACID ON WOUND lidocaine 2 2020-0 2021- No APPLY 5 MD % solution 7-12 10-25 MINUTES Jose L so 00:00: 00:00 BEFORE n 00 :00 ACETIC ACID ON WOUND acetic acid 2020-0 Yes USE Shravan jennie 0.25% 7-07 DIRECTED l irrigation 00:00: FOR WOUND [place] 00 CARE ONCE DAILY acetic acid 2020-0 Yes USE Shravan jennie 0.25% 7-07 DIRECTED l irrigation 00:00: FOR WOUND [place] 00 CARE ONCE DAILY acetic acid 2020-0 2020- No USE MD 0.25% 7-07 10-25 DIRECTED Anderso irrigation 00:00: 00:00 FOR WOUND n 00 :00 CARE ONCE DAILY HYDROcodone 2020-0 Yes Take 1 Shravan jennie -acetaminop 6-17 tablet by l hen ([employer] [facility]) 00:00: mouth Lelia nn 5 mg-325 mg 00 every 6 per tablet (six) hours as needed for moderate pain. HYDROcodone 0 Yes Take 1 Shravan jennie -acetaminop 6-17 tablet by l hen ([employer] [facility] [facility]) 00:00: mouth [place] nn 5 mg-325 mg 00 every 6 per tablet (six) hours as needed for moderate pain. 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 methocarbam 2020-0 Yes Memori a ol 6-09 l (ROBAXIN) 00:00: Alexi 500 mg 00 tablet methocarbam 2020-0 Yes Memori a ol 6-09 l (ROBAXIN) 00:00: Alexi 500 mg 00 tablet methocarbam 2020-0 Yes 500mg Take 500 M D ol 6-09 mg by Anderso (ROBAXIN) 00:00: mouth n 500 mg 00 every 8 tablet (eight) hours as needed. methocarbam 1-0 Yes [id number] 500mg Q.39775415 Take 1 [facility] ol 6- 519137 [id number] tablet Healt h (Robaxin) 00:00: 3D (500 mg 500 MG 00 total) by tablet mouth 3 (three) times a day. methocarbam 1-0 Yes [id number] 500mg Q.94338381 Take 1 [facility] ol 6- 577251 [id number] tablet Healt h (Robaxin) 00:00: 3D (500 mg 500 MG 00 total) by tablet mouth 3 (three) times a day. methocarbam 2020-0 Yes [id number] 500mg Q.21566875 Take 1 UT ol 6- 989100 [id number] tablet Healt h (Robaxin) 00:00: 3D (500 mg 500 MG 00 total) by tablet mouth 3 (three) times a day. methocarbam 2020-0 Yes [id number] 500mg Q.45795551 Take 1 UT ol 02-02 864890 [id number] tablet Healt h (Robaxin) 00:00: 3D (500 mg 500 MG 00 total) by tablet mouth 3 (three) times a day. methocarbam 2020-0 Yes [id number] 500mg Q.38294532 Take 1 UT ol - 933978 [id number] tablet Healt h (Robaxin) 00:00: 3D (500 mg 500 MG 00 total) by tablet mouth 3 (three) times a day. methocarbam 2020-0 1- No [id number] 500mg Q.91865024 Take 1 UT ol 02-02 834324 [id number] tablet Heal th (Robaxin) 00:00: 04:59 3D (500 mg 500 MG 00 :00 total) by tablet mouth 3 (three) times a day. methocarbam 2020-0 2021- No [id number] 500mg Q.09115415 Take 1 UT ol 02-02 158438 [id number] tablet Heal th (Robaxin) 00:00: 04:59 3D (500 mg 500 MG 00 :00 total) by tablet mouth 3 (three) times a day. methocarbam 2020- No [id number] 500mg Q.53922456 Take 1 UT ol 02-02 399815 [id number] tablet Heal th (Robaxin) 00:00: 04:59 3D (500 mg 500 MG 00 :00 total) by tablet mouth 3 (three) times a day. methocarbam 2020- No [id number] 500mg Q.16262311 Take 1 UT ol 02-02 787263 [id number] tablet Heal th (Robaxin) 00:00: 04:59 3D (500 mg 500 MG 00 :00 total) by tablet mouth 3 (three) times a day. methocarbam 2020- No [id number] 500mg Q.64822111 Take 1 UT ol 02-02 635023 [id number] tablet Heal th (Robaxin) 00:00: 04:59 3D (500 mg 500 MG 00 :00 total) by tablet mouth 3 (three) times a day. methocarbam 2020- No [id number] 500mg Q.27740650 Take 1 UT ol 02-02 431418 [id number] tablet Heal th (Robaxin) 00:00: 04:59 3D (500 mg 500 MG 00 :00 total) by tablet mouth 3 (three) times a day. methocarbam 2020- No [id number] 500mg Q.49134859 Take 1 UT ol 02-02 221764 [id number] tablet Heal th (Robaxin) 00:00: 04:59 3D (500 mg 500 MG 00 :00 total) by tablet mouth 3 (three) times a day. methocarbam 2020- No [id number] 500mg Q.93027119 Take 1 UT ol 02-02 782354 [id number] tablet Heal th (Robaxin) 00:00: 04:59 3D (500 mg 500 MG 00 :00 total) by tablet mouth 3 (three) times a day. methocarbam 2020- No [id number] 500mg Q.[id number] Take 1 UT ol 02-02 370744 [id number] tablet Heal th (Robaxin) 00:00: 04:59 3D (500 mg 500 MG 00 :00 total) by tablet mouth 3 (three) times a day. methocarbam 2020- No [id number] 500mg Q.[id number] Take 1 UT ol 02-02 175034 [id number] tablet Heal th (Robaxin) 00:00: 04:59 3D (500 mg 500 MG 00 :00 total) by tablet mouth 3 (three) times a day. methocarbam 2020- No [id number] 500mg Q.[id number] Take 1 UT ol 02-02 585077 [id number] tablet Heal th (Robaxin) 00:00: 04:59 3D (500 mg 500 MG 00 :00 total) by tablet mouth 3 (three) times a day. multivitami Yes 1{tbl} QD Take 1 UT n 6-02 tablet by [facility] [employer] ([employer]) 13:50: mouth 1 tablet 20 (one) time each day. multivitami 0 Yes 1{tbl} QD Take 1 UT n 6-02 tablet by [facility] [employer] ([employer]) 13:50: mouth 1 tablet 20 (one) time each day. multivitami 0 Yes 1{tbl} QD Take 1 UT n 6-02 tablet by [facility] [employer] ([employer]) 13:50: mouth 1 tablet 20 (one) time each day. multivitami 0 Yes 1{tbl} QD Take 1 UT n 6-02 tablet by [facility] ([employer]) 13:50: mouth 1 tablet 20 (one) time each day. multivitami 0 Yes 1{tbl} QD Take 1 UT n 6-02 tablet by [employer] ([employer]) 13:50: mouth 1 tablet 20 (one) time each day. multivitami 2020-0 Yes 1{tbl} QD Take 1 UT n 6-02 tablet by [facility] ([employer]) 13:50: mouth 1 tablet 20 (one) time each day. multivitami 2020-0 Yes 1{tbl} QD Take 1 UT n 6-02 tablet by [facility] [employer] ([employer]) 13:50: mouth 1 tablet 20 (one) time each day. multivitami 2020-0 Yes 1{tbl} QD Take 1 UT n 6-02 tablet by Health (Theragran) 13:50: mouth 1 tablet 20 (one) time each day. dilTIAZem 1-0 Yes 87 300mg QD Take 300 UT CD 6-02 mg by [facility] (Cardizem 13:45: mouth 1 CD) 300 MG 50 (one) time 24 hr each day. capsule carvedilol 1-0 Yes 87 Take by [facility] (Coreg) 25 6-02 mouth 2 Health MG tablet 13:45: (two) 50 times a day with meals. guanFACINE 1-0 Yes 87 2mg Q.5D Take 2 mg UT (Tenex) 2 6-02 by mouth 2 Heal th MG tablet 13:45: (two) 50 times a day. dilTIAZem 1-0 Yes 87 300mg QD Take 300 UT CD 6-02 mg by [facility] (Cardizem 13:45: mouth 1 CD) 300 MG 50 (one) time 24 hr each day. capsule carvedilol 2020-0 Yes 87 Take by [facility] (Coreg) 25 6-02 mouth 2 Health MG tablet 13:45: (two) 50 times a day with meals. guanFACINE 1-0 Yes 87 2mg Q.5D Take 2 mg UT (Tenex) 2 6-02 by mouth 2 Heal th MG tablet 13:45: (two) 50 times a day. dilTIAZem 2020-0 Yes 87 300mg QD Take 300 UT CD 6-02 mg by [facility] (Cardizem 13:45: mouth 1 CD) 300 MG 50 (one) time 24 hr each day. capsule carvedilol 2020-0 Yes 87 Take by [facility] (Coreg) 25 6-02 mouth 2 Health MG tablet 13:45: (two) 50 times a day with meals. guanFACINE 2021-0 Yes 87 2mg Q.5D Take 2 mg UT (Tenex) 2 6-02 by mouth 2 Heal th MG tablet 13:45: (two) 50 times a day. dilTIAZem 1-0 Yes 87 300mg QD Take 300 UT CD 6-02 mg by [facility] (Cardizem 13:45: mouth 1 CD) 300 MG 50 (one) time 24 hr each day. capsule carvedilol 1-0 Yes 87 Take by [facility] (Coreg) 25 6-02 mouth 2 Health MG tablet 13:45: (two) 50 times a day with meals. guanFACINE 2021-0 Yes 87 2mg Q.5D Take 2 mg UT (Tenex) 2 6-02 by mouth 2 Heal th MG tablet 13:45: (two) 50 times a day. dilTIAZem 2021-0 Yes 87 300mg QD Take 300 UT CD 6-02 mg by [facility] (Cardizem 13:45: mouth 1 CD) 300 MG 50 (one) time 24 hr each day. capsule carvedilol 2021-0 Yes 87 Take by [facility] (Coreg) 25 6-02 mouth 2 Health MG tablet 13:45: (two) 50 times a day with meals. guanFACINE 2021-0 Yes 87 2mg Q.5D Take 2 mg UT (Tenex) 2 6-02 by mouth 2 Heal th MG tablet 13:45: (two) 50 times a day. dilTIAZem 2021-0 Yes 87 300mg QD Take 300 UT CD 6-02 mg by [facility] (Cardizem 13:45: mouth 1 CD) 300 MG 50 (one) time 24 hr each day. capsule carvedilol 2021-0 Yes 87 Take by [facility] (Coreg) 25 6-02 mouth 2 Health MG tablet 13:45: (two) 50 times a day with meals. guanFACINE 2021-0 Yes 87 2mg Q.5D Take 2 mg UT (Tenex) 2 6-02 by mouth 2 Heal th MG tablet 13:45: (two) 50 times a day. dilTIAZem 2021-0 Yes 87 300mg QD Take 300 UT CD 6-02 mg by [facility] (Cardizem 13:45: mouth 1 CD) 300 MG 50 (one) time 24 hr each day. capsule carvedilol 2021-0 Yes 87 Take by [facility] (Coreg) 25 6-02 mouth 2 Health MG tablet 13:45: (two) 50 times a day with meals. guanFACINE 2021-0 Yes 87 2mg Q.5D Take 2 mg UT (Tenex) 2 6-02 by mouth 2 Heal th MG tablet 13:45: (two) 50 times a day. dilTIAZem 2021-0 Yes 87 300mg QD Take 300 UT CD 6-02 mg by [facility] (Cardizem 13:45: mouth 1 CD) 300 MG 50 (one) time 24 hr each day. capsule carvedilol Yes 87 Take by [facility] (Coreg) 25 6- mouth 2 Health MG tablet 13:45: (two) 50 times a day with meals. guanFACINE Yes 87 2mg Q.5D Take 2 mg UT (Tenex) 2 6-02 by mouth 2 Heal th MG tablet 13:45: (two) 50 times a day. methocarbam Yes [id number] 500mg Q.25D Take 1 UT ol - [id number] tablet Health (Robaxin) 00:00: (500 mg 500 MG 00 total) by tablet mouth 4 (four) times a day for 10 days. methocarbam 2020- No [id number] 500mg Q.25D Take 1 UT ol -02-02 [id number] tablet Health (Robaxin) 00:00: 00:00 (500 mg 500 MG 00 :00 total) by tablet mouth 4 (four) times a day for 10 days. methocarbam 2020- No [id number] 500mg Q.25D Take 1 UT ol -01-30 [id number] tablet Health (Robaxin) 00:00: 04:59 (500 mg 500 MG 00 :00 total) by tablet mouth 4 (four) times a day for 10 days. methocarbam 2020- No [id number] 500mg Q.25D Take 1 UT ol 5-26 01-30 [id number] tablet Health (Robaxin) 00:00: 04:59 (500 mg 500 MG 00 :00 total) by tablet mouth 4 (four) times a day for 10 days. methocarbam 2020- No [id number] 500mg Q.25D Take 1 UT ol -26 01-30 [id number] tablet Health (Robaxin) 00:00: 04:59 (500 mg 500 MG 00 :00 total) by tablet mouth 4 (four) times a day for 10 days. methocarbam 2020- No [id number] 500mg Q.25D Take 1 UT ol -26 - [id number] tablet Health (Robaxin) 00:00: 04:59 (500 mg 500 MG 00 :00 total) by tablet mouth 4 (four) times a day for 10 days. fluconazole 2020-2020- No [id number] 200mg QD Take 1 UT (Diflucan) 01-12 05-27 tablet Health 200 MG 00:00: 04:59 (200 mg tablet 00 :00 total) by mouth 1 (one) time each day for 7 days. fluconazole 2020-2020- No [id number] 200mg QD Take 1 UT (Diflucan) - 05-27 tablet Health 200 MG 00:00: 04:59 (200 mg tablet 00 :00 total) by mouth 1 (one) time each day for 7 days. carvedilol Yes 87 Take by [facility] (Coreg) 25 5-12 mouth 2 Health MG tablet 13:39: (two) 43 times a day with meals. guanFACINE Yes 87 2mg Q.5D Take 2 mg UT (Tenex) 2 5-12 by mouth 2 Heal th MG tablet 13:39: (two) 43 times a day. carvedilol 2020- Yes 87 Take by [facility] (Coreg) 25 5-12 mouth 2 Health MG tablet 13:39: (two) 43 times a day with meals. guanFACINE Yes 87 2mg Q.5D Take 2 mg UT (Tenex) 2 5-12 by mouth 2 Heal th MG tablet 13:39: (two) 43 times a day. carvedilol 2020-0 Yes 87 Take by [facility] (Coreg) 25 5-12 mouth 2 Health MG tablet 13:39: (two) 43 times a day with meals. guanFACINE 2020-0 Yes 87 2mg Q.5D Take 2 mg UT (Tenex) 2 5-12 by mouth 2 Heal th MG tablet 13:39: (two) 43 times a day. carvedilol 2020-0 Yes 87 Take by [facility] (Coreg) 25 5-12 mouth 2 Health MG tablet 13:39: (two) 43 times a day with meals. guanFACINE 2020-0 Yes 87 2mg Q.5D Take 2 mg UT (Tenex) 2 5-12 by mouth 2 Heal th MG tablet 13:39: (two) 43 times a day. carvedilol 2020-0 Yes 87 Take by [facility] (Coreg) 25 5-12 mouth 2 Health MG tablet 13:39: (two) 43 times a day with meals. guanFACINE Yes 87 2mg Q.5D Take 2 mg UT (Tenex) 2 5-12 by mouth 2 Heal th MG tablet 13:39: (two) 43 times a day. dilTIAZem 2020-0 Yes 87 300mg QD Take 300 UT CD 5-12 mg by Health (Cardizem 13:39: mouth 1 CD) 300 MG 42 (one) time 24 hr each day. capsule dilTIAZem 2020-0 Yes 87 300mg QD Take 300 UT CD 5-12 mg by Health (Cardizem 13:39: mouth 1 CD) 300 MG 42 (one) time 24 hr each day. capsule dilTIAZem 2020-0 Yes 87 300mg QD Take 300 UT CD 5-12 mg by Health (Cardizem 13:39: mouth 1 CD) 300 MG 42 (one) time 24 hr each day. capsule dilTIAZem 2020-0 Yes 87 300mg QD Take 300 UT CD 5-12 mg by Health (Cardizem 13:39: mouth 1 CD) 300 MG 42 (one) time 24 hr each day. capsule dilTIAZem 2020-0 Yes 87 300mg QD Take 300 UT CD 5-12 mg by Health (Cardizem 13:39: mouth 1 CD) 300 MG 42 (one) time 24 hr each day. capsule HYDROcodone 2020- No [id number] 1{tbl} Q6H Take 1 UT -acetaminop 5-12 05-18 [id number] tablet by [employer]) 00:00: 04:59 mouth 5-325 MG 00 :00 every 6 tablet (six) hours if needed for severe pain for up to 5 days. HYDROcodone 2020- No [id number] 1{tbl} Q6H Take 1 UT -acetaminop 5-12 05-18 [id number] tablet by [employer]) 00:00: 04:59 mouth 5-325 MG 00 :00 every 6 tablet (six) hours if needed for severe pain for up to 5 days. HYDROcodone 2020-2020- No [id number] 1{tbl} Q6H Take 1 UT -acetaminop 5-12 05-18 [id number] tablet by [employer]) 00:00: 04:59 mouth 5-325 MG 00 :00 every 6 tablet (six) hours if needed for severe pain for up to 5 days. Mirabegron 2021-0 Yes Myrbetriq UT ER 5-06 50 mg Health (Myrbetriq) 00:00: tablet,ext 50 MG 00 ended tablet release sustained-r elease 24 hour ascorbic 2020-0 Yes Vitamin C UT acid 5-06 1,000 mg Health (Vitamin C) 00:00: tablet 1000 MG 00 Take by tablet oral route. Cholecalcif 2020-0 Yes 2000U Take 2,000 UT trever 5-06 Units by Health (Vitamin 00:00: mouth. D-3) 1999 00 unit capsule Mirabegron 2021-0 Yes Myrbetriq UT ER 5-06 50 mg Health (Myrbetriq) 00:00: tablet,ext 50 MG 00 ended tablet release sustained-r elease 24 hour ascorbic 2020-0 Yes Vitamin C UT acid 5-06 1,000 mg Health (Vitamin C) 00:00: tablet 1000 MG 00 Take by tablet oral route. Cholecalcif 2020-0 Yes 2000U Take 2,000 UT trever 5-06 Units by Health (Vitamin 00:00: mouth. D-3) 1999 00 unit capsule Mirabegron 2021-0 Yes Myrbetriq UT ER 5-06 50 mg Health (Myrbetriq) 00:00: tablet,ext 50 MG 00 ended tablet release sustained-r elease 24 hour ascorbic 2020-0 Yes Vitamin C UT acid 5-06 1,000 mg Health (Vitamin C) 00:00: tablet 1000 MG 00 Take by tablet oral route. Cholecalcif 2020-0 Yes 2000U Take 2,000 UT trever 5-06 Units by Health (Vitamin 00:00: mouth. D-3) 1999 00 unit capsule Mirabegron 2021-0 Yes Myrbetriq UT ER 5-06 50 mg [facility] (Myrbetriq) 00:00: tablet,ext 50 MG 00 ended tablet release sustained-r elease 24 hour ascorbic 2020-0 Yes Vitamin C UT acid 5-06 1,000 mg Health (Vitamin C) 00:00: tablet 1000 MG 00 Take by tablet oral route. Cholecalcif 2021-0 Yes 2000U Take 2,000 UT trever 5-06 Units by Health (Vitamin 00:00: mouth. D-3) 1999 unit capsule Mirabegron 2021-0 Yes Myrbetriq UT ER 5-06 50 mg Health (Myrbetriq) 00:00: tablet,ext 50 MG 00 ended tablet release sustained-r elease 24 hour ascorbic 2020-0 Yes Vitamin C UT acid 5-06 1,000 mg Health (Vitamin C) 00:00: tablet 1000 MG 00 Take by tablet oral route. Cholecalcif 202-0 Yes 2000U Take 2,000 UT trever 5-06 Units by Health (Vitamin 00:00: mouth. D-3) 1999 unit capsule Mirabegron 2021-0 Yes Myrbetriq UT ER 5-06 50 mg [facility] (Myrbetriq) 00:00: tablet,ext 50 MG 00 ended tablet release sustained-r elease 24 hour ascorbic 0 Yes Vitamin C UT acid 5-06 1,000 mg Health (Vitamin C) 00:00: tablet 1000 MG 00 Take by tablet oral route. Cholecalcif 2020-0 Yes 2000U Take 2,000 UT trever 5-06 Units by Health (Vitamin 00:00: mouth. D-3) 1999 unit capsule Mirabegron 2021-0 Yes Myrbetriq UT ER 5-06 50 mg [facility] (Myrbetriq) 00:00: tablet,ext 50 MG 00 ended tablet release sustained-r elease 24 hour ascorbic 0 Yes Vitamin C UT acid 5-06 1,000 mg Health (Vitamin C) 00:00: tablet 1000 MG 00 Take by tablet oral route. Cholecalcif 202-0 Yes 2000U Take 2,000 UT trever 5-06 Units by Health (Vitamin 00:00: mouth. D-3) 1999 unit capsule Mirabegron 2021-0 Yes Myrbetriq UT ER 5-06 50 mg [facility] (Myrbetriq) 00:00: tablet,ext 50 MG 00 ended tablet release sustained-r elease 24 hour ascorbic 2020-0 Yes Vitamin C UT acid 5-06 1,000 mg Health (Vitamin C) 00:00: tablet 1000 MG 00 Take by tablet oral route. Cholecalcif 2021-0 Yes 2000U Take 2,000 UT trever 5-06 Units by Health (Vitamin 00:00: mouth. D-3) 1999 unit capsule Mirabegron 2021-0 Yes Myrbetriq UT ER 5-06 50 mg [facility] (Myrbetriq) 00:00: tablet,ext 50 MG 00 ended tablet release sustained-r elease 24 hour ascorbic 2020-0 Yes Vitamin C UT acid 5-06 1,000 mg Health (Vitamin C) 00:00: tablet 1000 MG 00 Take by tablet oral route. Cholecalcif 2020-0 Yes 2000U Take 2,000 UT trever 5-06 Units by [facility] (Vitamin 00:00: mouth. D-3) 1999 unit capsule Mirabegron 2021-0 Yes Myrbetriq UT ER 5-06 50 mg [facility] (Myrbetriq) 00:00: tablet,ext 50 MG 00 ended tablet release sustained-r elease 24 hour ascorbic 2020-0 Yes Vitamin C UT acid 5-06 1,000 mg Health (Vitamin C) 00:00: tablet 1000 MG 00 Take by tablet oral route. Cholecalcif 2020-0 Yes 2000U Take 2,000 UT trever 5-06 Units by [facility] (Vitamin 00:00: mouth. D-3) 1999 unit capsule Mirabegron 2021-0 Yes Myrbetriq UT ER 5-06 50 mg [facility] (Myrbetriq) 00:00: tablet,ext 50 MG 00 ended tablet release sustained-r elease 24 hour ascorbic 2020-0 Yes Vitamin C UT acid 5-06 1,000 mg Health (Vitamin C) 00:00: tablet 1000 MG 00 Take by tablet oral route. ascorbic 2020-0 Yes Vitamin C UT acid 5-06 1,000 mg Health (Vitamin C) 00:00: tablet 1000 MG 00 Take by tablet oral route. Cholecalcif 2021-0 Yes 2000U Take 2,000 [facility] trever 5-06 Units by [facility] (Vitamin 00:00: mouth. D-3) 1999 unit capsule Mirabegron 2021-0 Yes Myrbetriq [facility] ER 5-06 50 mg [facility] (Myrbetriq) 00:00: tablet,ext 50 MG 00 ended tablet release sustained-r elease 24 hour Cholecalcif 2021-0 Yes 2000U Take 2,000 [facility] trever 5-06 Units by Health (Vitamin 00:00: mouth. D-3) 1999 unit capsule ascorbic 2020-0 Yes Vitamin C UT acid 5-06 1,000 mg Health (Vitamin C) 00:00: tablet 1000 MG 00 Take by tablet oral route. Cholecalcif 2020-0 Yes 2000U Take 2,000 [facility] trever 5-06 Units by [facility] (Vitamin 00:00: mouth. D-3) 1999 unit capsule Mirabegron 2021-0 Yes Myrbetriq [facility] ER 5-06 50 mg [facility] (Myrbetriq) 00:00: tablet,ext 50 MG 00 ended tablet release sustained-r elease 24 hour ascorbic 2020-0 Yes Vitamin C UT acid 5-06 1,000 mg Health (Vitamin C) 00:00: tablet 1000 MG 00 Take by tablet oral route. Cholecalcif 2020-0 Yes 2000U Take 2,000 UT trever 5-06 Units by Health (Vitamin 00:00: mouth. D-3) 1999 unit capsule Mirabegron 2021-0 Yes Myrbetriq [facility] ER 5-06 50 mg [facility] (Myrbetriq) 00:00: tablet,ext 50 MG 00 ended tablet release sustained-r elease 24 hour ascorbic 2020-0 Yes Vitamin C UT acid 5-06 1,000 mg Health (Vitamin C) 00:00: tablet 1000 MG 00 Take by tablet oral route. Cholecalcif 2020-0 Yes 2000U Take 2,000 UT trever 5-06 Units by Health (Vitamin 00:00: mouth. D-3) 1999 unit capsule Mirabegron 2021-0 Yes Myrbetriq UT ER 5-06 50 mg Health (Myrbetriq) 00:00: tablet,ext 50 MG 00 ended tablet release sustained-r elease 24 hour ascorbic 2020-0 Yes Vitamin C UT acid 5-06 1,000 mg Health (Vitamin C) 00:00: tablet 1000 MG 00 Take by tablet oral route. Mirabegron 2021-0 Yes Myrbetriq UT ER 5-06 50 mg Health (Myrbetriq) 00:00: tablet,ext 50 MG 00 ended tablet release sustained-r elease 24 hour Cholecalcif 2020-0 Yes 2000U Take 2,000 UT trever 5-06 Units by Health (Vitamin 00:00: mouth. D-3) 1999 unit capsule Mirabegron 2021-0 Yes Myrbetriq UT ER 5-06 50 mg Health (Myrbetriq) 00:00: tablet,ext 50 MG 00 ended tablet release sustained-r elease 24 hour ascorbic 2020-0 Yes Vitamin C UT acid 5-06 1,000 mg Health (Vitamin C) 00:00: tablet 1000 MG 00 Take by tablet oral route. Cholecalcif 2020-0 Yes 2000U Take 2,000 UT trever 5-06 Units by Health (Vitamin 00:00: mouth. D-3) 1999 unit capsule Mirabegron 2020-0 Yes Myrbetriq UT ER 5-06 50 mg Health (Myrbetriq) 00:00: tablet,ext 50 MG 00 ended tablet release sustained-r elease 24 hour ascorbic 0 Yes Vitamin C UT acid 5-06 1,000 mg Health (Vitamin C) 00:00: tablet 1000 MG 00 Take by tablet oral route. Cholecalcif 0 Yes 2000U Take 2,000 UT trever 5-06 Units by Health (Vitamin 00:00: mouth. D-3) 1999 unit capsule Mirabegron 2020-0 Yes Myrbetriq UT ER 5-06 50 mg Health (Myrbetriq) 00:00: tablet,ext 50 MG 00 ended tablet release sustained-r elease 24 hour ascorbic 0 Yes Vitamin C UT acid 5-06 1,000 mg Health (Vitamin C) 00:00: tablet 1000 MG 00 Take by tablet oral route. Cholecalcif 2020-0 Yes 2000U Take 2,000 UT trever 5-06 Units by Health (Vitamin 00:00: mouth. D-3) 1999 unit capsule Mirabegron 2020-0 Yes Myrbetriq UT ER 5-06 50 mg Health (Myrbetriq) 00:00: tablet,ext 50 MG 00 ended tablet release sustained-r elease 24 hour ascorbic 2020-0 Yes Vitamin C UT acid 5-06 1,000 mg Health (Vitamin C) 00:00: tablet 1000 MG 00 Take by tablet oral route. Cholecalcif 2020-0 Yes 2000U Take 2,000 UT trever 5-06 Units by Health (Vitamin 00:00: mouth. D-3) 1999 unit capsule Vascepa 1 g 2020-0 Yes UT capsule 4-23 Health 00:00: 00 Vascepa 1 g 202-0 Yes UT capsule 4-23 Health 00:00: 00 Vascepa 1 g 2021-0 Yes UT capsule 4-23 Health 00:00: 00 Vascepa 1 g 2021-0 Yes UT capsule 4-23 Health 00:00: 00 Vascepa 1 g 2021-0 Yes UT capsule 4-23 Health 00:00: 00 Vascepa 1 g 2021-0 Yes UT capsule 4-23 Health 00:00: 00 Vascepa 1 g 2021-0 Yes UT capsule 4-23 Health 00:00: 00 Vascepa 1 g 2021-0 Yes UT capsule 4-23 Health 00:00: 00 Vascepa 1 g 2021-0 Yes UT capsule 4-23 Health 00:00: 00 Vascepa 1 g 2021-0 Yes UT capsule 4-23 Health 00:00: 00 Vascepa 1 g 2021-0 Yes UT capsule 4-23 Health 00:00: 00 Vascepa 1 g 2021-0 Yes UT capsule 4-23 Health 00:00: 00 Vascepa 1 g 2021-0 Yes UT capsule 4-23 Health 00:00: 00 Vascepa 1 g 2021-0 Yes UT capsule 4-23 Health 00:00: 00 Vascepa 1 g 2021-0 Yes UT capsule 4-23 Health 00:00: 00 Vascepa 1 g 2021-0 Yes UT capsule 4-23 Health 00:00: 00 Vascepa 1 g 2021-0 Yes UT capsule 4-23 Health 00:00: 00 Vascepa 1 g 2021-0 Yes UT capsule 4-23 Health 00:00: 00 Vascepa 1 g 2021-0 Yes UT capsule 4-23 Health 00:00: 00 Vascepa 1 g 2021-0 Yes UT capsule 4-23 Health 00:00: 00 HYDROcodone HYDROcodone 2020-0 Yes VICTORIANO TAKE 1 [facility] -Acetaminop -Acetaminop 4-12 GREG TABLET ity of hen 5-325 hen 5-325 00:00: M.D. EVERY 4 TO [place] MG Oral MG Oral 00 6 HOURS Phy sici Tablet Tablet NEEDED FOR ans PAIN. ondansetron 0 Yes Take 1 Shravan jennie (Zofran) 8 3-18 tablet (8 l mg tablet 00:00: mg) by Khang lowe 00 mouth every 8 (eight) hours as needed for nausea or vomiting. ondansetron 2020-0 Yes Take 1 Shravan jennie (Zofran) 8 3-18 tablet (8 l mg tablet 00:00: mg) by Khang n 00 mouth every 8 (eight) hours as needed for nausea or vomiting. 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 HYDROcodone HYDROcodone 0 Yes VICTORIANO Q6H TAKE 1 TO [facility] -Acetaminop -Acetaminop 2-22 GREG 2 TABLETS ity of hen 5-325 hen 5-325 00:00: M.D. EVERY 6 [place] MG Oral MG Oral 00 HOURS Physi ci Tablet Tablet NEEDED. ans HYDROcodone 2020-0 No Take by Mem oria -acetaminop 2-22 mouth as l hen (NORCO) 00:00: needed. Her sullivan 5 mg-325 mg 00 per tablet HYDROcodone 2020-0 No Take by Mem oria -acetaminop 2-22 mouth as l hen (NORCO) 00:00: needed. Her sullivan 5 mg-325 mg 00 per tablet HYDROcodone 2020-0 Yes Take by UT -acetaminop 2-22 mouth. Health hen ([place]) 00:00: 5-325 MG 00 tablet HYDROcodone 2020-0 Yes Take by UT -acetaminop 2-22 mouth. Health hen ([place]) 00:00: 5-325 MG 00 tablet HYDROcodone 202-0 Yes Take by UT -acetaminop 2-22 mouth. Health hen ([place]) 00:00: 5-325 MG 00 tablet HYDROcodone 2020-0 Yes Take by UT -acetaminop 2-22 mouth. Health hen ([place]) 00:00: 5-325 MG 00 tablet HYDROcodone 202-0 Yes Take by UT -acetaminop 2-22 mouth. Health hen ([place]) 00:00: 5-325 MG 00 tablet HYDROcodone 2021-0 Yes Take by UT -acetaminop 2-22 mouth. Health hen ([place]) 00:00: 5-325 MG 00 tablet HYDROcodone 202-0 Yes Take by UT -acetaminop 2-22 mouth. Health hen ([place]) 00:00: 5-325 MG 00 tablet HYDROcodone 0 Yes Take by UT -acetaminop 2-22 mouth. Health hen ([place]) 00:00: 5-325 MG 00 tablet HYDROcodone 2020-0 Yes Take by UT -acetaminop 2-22 mouth. Health hen ([place]) 00:00: 5-325 MG 00 tablet HYDROcodone 0 2020- No Take by UT -acetaminop 2-22 08- mouth. Healt h hen ([place]) 00:00: 00:00 5-325 MG 00 :00 tablet HYDROcodone 2020- No Take by MD Ortizacetaminoshae 10-18 06-17 mouth as And erso hen ([facility] [facility]) 00:00: 00:00 needed. n 5 mg-325 mg 00 :00 per tablet methenam/so 2020- No Take by MD quintana 2 02-04 mouth 3 Anderso phos/mblue/ 11:28: 00:00 (three) n hyoscy 33 :00 times a (UROGESIC-B day. LUE ORAL) methenam/so No Take by Mem oria d 2-04 mouth 3 l phos/mblue/ 00:00: (three) Her sullivan hyoscy 00 times a (UROGESIC-B day. LUE ORAL) ondansetron No Dissolve 1 Memoria (ZOFRAN-ODT 2-04 tablet (8 l ) 8 mg 00:00: mg) on the Lelia nn disintegrat 00 tongue ing tablet every 8 (eight) hours as needed for nausea. methenam/so No Take by Mem oria d 2-04 mouth 3 l phos/mblue/ 00:00: (three) Her sullivan hyoscy 00 times a (UROGESIC-B day. LUE ORAL) ondansetron No Dissolve 1 Memoria (ZOFRAN-ODT 2-04 tablet (8 l ) 8 mg 00:00: mg) on the [place] nn disintegrat 00 tongue ing tablet every 8 (eight) hours as needed for nausea. ondansetron 2021-0 Yes UT ODT 2-04 Health (Zofran-ODT 00:00: ) 8 MG 00 disintegrat ing tablet ondansetron 2021-0 Yes UT ODT 2-04 Health (Zofran-ODT 00:00: ) 8 MG 00 disintegrat ing tablet ondansetron 2021-0 Yes UT ODT 2-04 Health (Zofran-ODT 00:00: ) 8 MG 00 disintegrat ing tablet ondansetron 2021-0 Yes UT ODT 2-04 Health (Zofran-ODT 00:00: ) 8 MG 00 disintegrat ing tablet ondansetron 2021-0 Yes UT ODT 2-04 Health (Zofran-ODT 00:00: ) 8 MG 00 disintegrat ing tablet ondansetron 2021-0 Yes UT ODT 2-04 Health (Zofran-ODT 00:00: ) 8 MG 00 disintegrat ing tablet ondansetron 2021-0 Yes UT ODT 2-04 Health (Zofran-ODT 00:00: ) 8 MG 00 disintegrat ing tablet ondansetron 2021-0 Yes UT ODT 2-04 Health (Zofran-ODT 00:00: ) 8 MG 00 disintegrat ing tablet ondansetron 2021-0 Yes UT ODT 2-04 Health (Zofran-ODT 00:00: ) 8 MG 00 disintegrat ing tablet ondansetron 2021-0 Yes UT ODT 2-04 Health (Zofran-ODT 00:00: ) 8 MG 00 disintegrat ing tablet ondansetron 2021-0 Yes UT ODT 2-04 Health (Zofran-ODT 00:00: ) 8 MG 00 disintegrat ing tablet ondansetron 2021-0 Yes UT ODT 2-04 Health (Zofran-ODT 00:00: ) 8 MG 00 disintegrat ing tablet ondansetron 2021-0 Yes UT ODT 2-04 Health (Zofran-ODT 00:00: ) 8 MG 00 disintegrat ing tablet ondansetron 2021-0 Yes UT ODT 2-04 Health (Zofran-ODT 00:00: ) 8 MG 00 disintegrat ing tablet ondansetron 2021-0 Yes UT ODT 2-04 Health (Zofran-ODT 00:00: ) 8 MG 00 disintegrat ing tablet ondansetron 0 Yes UT ODT 2-04 Health (Zofran-ODT 00:00: ) 8 MG 00 disintegrat ing tablet ondansetron 0 Yes UT ODT 2-04 Health (Zofran-ODT 00:00: ) 8 MG 00 disintegrat ing tablet ondansetron 0 Yes UT ODT 2-04 Health (Zofran-ODT 00:00: ) 8 MG 00 disintegrat ing tablet ondansetron 0 Yes UT ODT 2-04 Health (Zofran-ODT 00:00: ) 8 MG 00 disintegrat ing tablet ondansetron 0 Yes UT ODT 2-04 Health (Zofran-ODT 00:00: ) 8 MG 00 disintegrat ing tablet ondansetron 2020- No Malignant 8mg Dissolve 1 MD (ZOFRAN-ODT 2-04 03-18 neoplasm of tablet (8 Anderso ) 8 mg 00:00: 00:00 left mg) on the n disintegrat 00 :00 kidney, tongue ing tablet except every 8 renal (eight) pelvis hours as needed for nausea. furosemide 2019-08 No Take 1 Memor ia (Lasix) 20 2-15 tablet (20 l mg tablet 00:00: mg) by Khang n 00 mouth daily as needed for edema (edema). furosemide 2019-08 No Take 1 Memor ia (Lasix) 20 2-15 tablet (20 l mg tablet 00:00: mg) by Khang n 00 mouth daily as needed for edema (edema). furosemide 2019-08 No Generalized 20mg Take 1 MD (Lasix) 20 2-15 03-18 edema tablet (20 A nderso mg tablet 00:00: 00:00 mg) by n 00 :00 mouth daily as needed for edema (edema). cabozantini 2019-08 No Take 1 Shravan jennie b 1-02 tablet (40 l (Cabometyx) 00:00: mg) by Herm deysi 40 mg 00 mouth tablet daily. cabozantini 2019-08 No Take 1 Shravan jennie b 1-02 tablet (40 l (Cabometyx) 00:00: mg) by Herm deysi 40 mg 00 mouth tablet daily. Cabozantini 2019-1 Yes 40mg Take 40 mg UT b S-Malate 1-02 by mouth. [facility] (Cabometyx) 00:00: 40 MG 00 tablet Cabozantini 2020-1 Yes 40mg Take 40 mg UT b S-Malate 1-02 by mouth. [facility] (Cabometyx) 00:00: 40 MG 00 tablet Cabozantini 2020-1 Yes 40mg Take 40 mg UT b S-Malate 1-02 by mouth. [facility] (Cabometyx) 00:00: 40 MG 00 tablet Cabozantini 2020-1 Yes 40mg Take 40 mg UT b S-Malate 1-02 by mouth. [facility] (Cabometyx) 00:00: 40 MG 00 tablet Cabozantini 2020-1 Yes 40mg Take 40 mg UT b S-Malate 1-02 by mouth. [facility] (Cabometyx) 00:00: 40 MG 00 tablet Cabozantini 2020-1 Yes 40mg Take 40 mg UT b S-Malate 1-02 by mouth. [facility] (Cabometyx) 00:00: 40 MG 00 tablet Cabozantini 2020-1 Yes 40mg Take 40 mg UT b S-Malate 1-02 by mouth. [facility] (Cabometyx) 00:00: 40 MG 00 tablet Cabozantini 2020-1 Yes 40mg Take 40 mg UT b S-Malate 1-02 by mouth. [facility] (Cabometyx) 00:00: 40 MG 00 tablet Cabozantini 2020-1 Yes 40mg Take 40 mg UT b S-Malate 1-02 by mouth. [facility] (Cabometyx) 00:00: 40 MG 00 tablet Cabozantini 2020-1 Yes 40mg Take 40 mg UT b S-Malate 1-02 by mouth. [facility] (Cabometyx) 00:00: 40 MG 00 tablet Cabozantini 2020-1 Yes 40mg Take 40 mg UT b S-Malate 1-02 by mouth. [facility] (Cabometyx) 00:00: 40 MG 00 tablet Cabozantini 2020-1 Yes 40mg Take 40 mg UT b S-Malate 1-02 by mouth. [facility] (Cabometyx) 00:00: 40 MG 00 tablet Cabozantini 2020-1 Yes 40mg Take 40 mg UT b S-Malate 1-02 by mouth. [facility] (Cabometyx) 00:00: 40 MG 00 tablet Cabozantini 2020-1 Yes 40mg Take 40 mg UT b S-Malate 1-02 by mouth. [facility] (Cabometyx) 00:00: 40 MG 00 tablet Cabozantini 2020-1 Yes 40mg Take 40 mg UT b S-Malate 1-02 by mouth. [facility] (Cabometyx) 00:00: 40 MG 00 tablet Cabozantini 2020-1 Yes 40mg Take 40 mg UT b S-Malate 1-02 by mouth. [facility] (Cabometyx) 00:00: 40 MG 00 tablet Cabozantini 2020- Yes 40mg Take 40 mg UT b S-Malate 1-02 by mouth. [facility] (Cabometyx) 00:00: 40 MG 00 tablet Cabozantini 2020-1 Yes 40mg Take 40 mg UT b S-Malate 1-02 by mouth. [facility] (Cabometyx) 00:00: 40 MG 00 tablet Cabozantini 2020-1 Yes 40mg Take 40 mg UT b S-Malate 1-02 by mouth. [facility] (Cabometyx) 00:00: 40 MG 00 tablet Cabozantini 2020-1 Yes 40mg Take 40 mg UT b S-Malate 1-02 by mouth. 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 renal pelvis sodium 2019-08 No Take 120 Memoria polystyrene 0-22 mL (30 g) l (KAYEXALATE 00:00: by mouth He rmann ) 15 g/60 00 once for 1 mL dose. suspension sodium 2019-08 No Take 120 Memoria polystyrene 0-22 mL (30 g) l (KAYEXALATE 00:00: by mouth He rmann ) 15 g/60 00 once for 1 mL dose. suspension carvedilol 2019-08 Yes 50 mg Memori a (COREG) 25 0-12 twice l mg tablet 00:00: daily. Khang n 00 Takes 50 mg twice a day carvedilol 2019-08 Yes 50 mg Memori a (COREG) 25 0-12 twice l mg tablet 00:00: daily. Khang n 00 Takes 50 mg twice a day carvedilol 2020-1 Yes 50mg 50 mg MD (COREG) 25 0-12 twice Anderso mg tablet 00:00: daily. n 00 Takes 50 mg twice a day sodium 2020-1 No Take 60 mL Memor ia polystyrene 0-01 (15 g) by l (KAYEXALATE 00:00: mouth once [place] ) 15 g/60 00 for 1 mL dose. suspension sodium 2020-1 No Take 60 mL Memor ia polystyrene 0-01 (15 g) by l (KAYEXALATE 00:00: mouth once [place] ) 15 g/60 00 for 1 mL dose. suspension levothyroxi 2020-0 Yes Take 1 Shravan jennie ne 8-21 tablet l (SYNTHROID, 00:00: (125 mcg) H ermann LEVOTHROID) 00 by mouth 125 mcg daily. tablet levothyroxi 2020-0 No Take 1 Shravan jennie ne 8-21 tablet l (SYNTHROID, 00:00: (125 mcg) H ermann LEVOTHROID) 00 by mouth 125 mcg daily. tablet levothyroxi 2020-0 Yes 125ug Take 125 U T ne 8-21 mcg by Health (Synthroid, 00:00: mouth. Levoxyl) 00 125 MCG tablet levothyroxi 2020-0 Yes 125ug Take 125 U T ne 8-21 mcg by Health (Synthroid, 00:00: mouth. Levoxyl) 00 125 MCG tablet levothyroxi 2020-0 Yes 125ug Take 125 U T ne 8-21 mcg by Health (Synthroid, 00:00: mouth. Levoxyl) 00 125 MCG tablet levothyroxi 2020-0 Yes 125ug Take 125 U T ne 8-21 mcg by Health (Synthroid, 00:00: mouth. Levoxyl) 00 125 MCG tablet levothyroxi 2020-0 Yes 125ug Take 125 U T ne 8-21 mcg by Health (Synthroid, 00:00: mouth. Levoxyl) 00 125 MCG tablet levothyroxi 2020-0 Yes 125ug Take 125 U T ne 8-21 mcg by Health (Synthroid, 00:00: mouth. Levoxyl) 00 125 MCG tablet levothyroxi 2020-0 Yes 125ug Take 125 U T ne 8-21 mcg by Health (Synthroid, 00:00: mouth. Levoxyl) 00 125 MCG tablet levothyroxi 2020-0 Yes 125ug Take 125 U T ne 8-21 mcg by Health (Synthroid, 00:00: mouth. Levoxyl) 00 125 MCG tablet levothyroxi 2020-0 Yes 125ug Take 125 U T ne 8-21 mcg by Health (Synthroid, 00:00: mouth. Levoxyl) 00 125 MCG tablet levothyroxi 2020-0 Yes 125ug Take 125 U T ne 8-21 mcg by Health (Synthroid, 00:00: mouth. Levoxyl) 00 125 MCG tablet levothyroxi 2020-0 Yes 125ug Take 125 U T ne 8-21 mcg by Health (Synthroid, 00:00: mouth. Levoxyl) 00 125 MCG tablet levothyroxi 2020-0 Yes 125ug Take 125 U T ne 8-21 mcg by Health (Synthroid, 00:00: mouth. Levoxyl) 00 125 MCG tablet levothyroxi 2020-0 Yes 125ug Take 125 U T ne 8-21 mcg by Health (Synthroid, 00:00: mouth. Levoxyl) 00 125 MCG tablet levothyroxi 2020-0 Yes 125ug Take 125 U T ne 8-21 mcg by Health (Synthroid, 00:00: mouth. Levoxyl) 00 125 MCG tablet levothyroxi 2020-0 Yes 125ug Take 125 U T ne 8-21 mcg by Health (Synthroid, 00:00: mouth. Levoxyl) 00 125 MCG tablet levothyroxi 2020-0 Yes 125ug Take 125 U T ne 8-21 mcg by Health (Synthroid, 00:00: mouth. Levoxyl) 00 125 MCG tablet levothyroxi 2020-0 Yes 125ug Take 125 U T ne 8-21 mcg by Health (Synthroid, 00:00: mouth. Levoxyl) 00 125 MCG tablet levothyroxi 2020-0 Yes 125ug Take 125 U T ne 8-21 mcg by Health (Synthroid, 00:00: mouth. Levoxyl) 00 125 MCG tablet levothyroxi 2020-0 Yes 125ug Take 125 U T ne 8-21 mcg by Health (Synthroid, 00:00: mouth. Levoxyl) 00 125 MCG tablet levothyroxi 2020-0 Yes 125ug Take 125 U T ne 8-21 mcg by [facility] (Synthroid, 00:00: mouth. Levoxyl) 00 125 MCG tablet levothyroxi 0 2020- No Other 125ug Take 1 M D ne 8-21 10-05 specified tablet Anderso (SYNTHROID, 00:00: 00:00 hypothyroid (125 mcg) n LEVOTHROID) 00 :00 ism by mouth 125 mcg daily. tablet axitinib 2020-0 No Take 1 Memoria (Inlyta) 5 8-06 tablet (5 l mg tablet 00:00: mg) by Khang n 00 mouth twice daily. axitinib 2020-0 No Take 1 Memoria (Inlyta) 5 8-06 tablet (5 l mg tablet 00:00: mg) by Khang n 00 mouth twice daily. Sulfamethox Sulfamethox 2019-0 Yes ROCK TAKE ONE [facility] azole-Trime azole-Trime 7-15 BAPTIST TABLET BY ity of thoprim thoprim 00:00: PA-C MOUTH [place] 800-160 MG 800-160 MG 00 EVERY 12 Physici Oral Tablet Oral Tablet HOURS ans sulfamethox 2019-0 No Take by Alberto oria azole-trime 7-15 mouth. l thoprim 00:00: [place] (BACTRIM 00 DS) 800 mg-160 mg per tablet sulfamethox 2020-0 No Take by Alberto oria azole-trime 7-15 mouth. l thoprim 00:00: Alexi (BACTRIM 00 DS) 800 mg-160 mg per tablet sulfamethox 2020-0 2020- No Take by azole-trime 7-15 02-04 mouth. Jose L so thoprim 00:00: 00:00 n (BACTRIM 00 :00 DS) 800 mg-160 mg per tablet collagenase 2020-0 Yes Apply Memor ia (Santyl) 02-24 topically l ointment 00:00: to Alexi 00 affected area(s) daily. Apply with saline moistened gauze to ulcer on the left great toe daily collagenase 2020-0 Yes Apply Memor ia (Santyl) 02-24 topically l ointment 00:00: to [place] 00 affected area(s) daily. Apply with saline moistened gauze to ulcer on the left great toe daily collagenase 2020-0 Yes Non-pressur Apply (Santyl) 02-24 e chronic topically A nderso ointment 00:00: ulcer of to n 00 other part affected of left area(s) foot with daily. fat layer Apply with exposed saline moistened gauze to ulcer on the left great toe daily collagenase 2020-0 Yes Santyl 250 UT (Santyl) 7 unit/gram Health 250 UNIT/GM 00:00: topical ointment 00 ointment collagenase 2020-0 Yes Santyl 250 UT (Santyl) 02-24 unit/gram Health 250 UNIT/GM 00:00: topical ointment 00 ointment collagenase 2020-0 Yes Santyl 250 UT (Santyl) 02-24 unit/gram Health 250 UNIT/GM 00:00: topical ointment 00 ointment collagenase 2020-0 Yes Santyl 250 UT (Santyl) 02-24 unit/gram Health 250 UNIT/GM 00:00: topical ointment 00 ointment collagenase 2020-0 Yes Santyl 250 UT (Santyl) 02-24 unit/gram Health 250 UNIT/GM 00:00: topical ointment 00 ointment collagenase 2020-0 Yes Santyl 250 UT (Santyl) 02-24 unit/gram Health 250 UNIT/GM 00:00: topical ointment 00 ointment collagenase 2020-0 Yes Santyl 250 UT (Santyl) 02-24 unit/gram Health 250 UNIT/GM 00:00: topical ointment 00 ointment collagenase 2020-0 Yes Santyl 250 UT (Santyl) 02-24 unit/gram Health 250 UNIT/GM 00:00: topical ointment 00 ointment collagenase 2020-0 Yes Santyl 250 UT (Santyl) 02-24 unit/gram Health 250 UNIT/GM 00:00: topical ointment 00 ointment collagenase 2020-0 Yes Santyl 250 UT (Santyl) 02-24 unit/gram Health 250 UNIT/GM 00:00: topical ointment 00 ointment collagenase 2020-0 Yes Santyl 250 UT (Santyl) 02-24 unit/gram Health 250 UNIT/GM 00:00: topical ointment 00 ointment collagenase 2020-0 Yes Santyl 250 UT (Santyl) 02-24 unit/gram Health 250 UNIT/GM 00:00: topical ointment 00 ointment collagenase 2020-0 Yes Santyl 250 UT (Santyl) 02-24 unit/gram Health 250 UNIT/GM 00:00: topical ointment 00 ointment collagenase 2020-0 Yes Santyl 250 UT (Santyl) 7- unit/gram Health 250 UNIT/GM 00:00: topical ointment 00 ointment collagenase 2020-0 Yes Santyl 250 UT (Santyl) 7- unit/gram Health 250 UNIT/GM 00:00: topical ointment 00 ointment collagenase 2020-0 Yes Santyl 250 UT (Santyl) 7- unit/gram Health 250 UNIT/GM 00:00: topical ointment 00 ointment collagenase 2020-0 Yes Santyl 250 UT (Santyl) 7- unit/gram Health 250 UNIT/GM 00:00: topical ointment 00 ointment collagenase 2020-0 Yes Santyl 250 UT (Santyl) 7- unit/gram Health 250 UNIT/GM 00:00: topical ointment 00 ointment collagenase 2020-0 Yes Santyl 250 UT (Santyl) 7- unit/gram Health 250 UNIT/GM 00:00: topical ointment 00 ointment collagenase 2020-0 Yes Santyl 250 UT (Santyl) 7- unit/gram Health 250 UNIT/GM 00:00: topical ointment 00 ointment hydroCHLORO 2019-0 Yes Take 1 Shravan jennie thiazide 5-15 tablet l (HYDRODIURI 00:00: (12.5 mg) H ermann L) 12.5 mg 00 by mouth tablet daily. hydroCHLORO No Take 1 Shravan jennie thiazide 5-15 tablet l (HYDRODIURI 00:00: (12.5 mg) H ermann L) 12.5 mg 00 by mouth tablet daily. 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 renal pelvis guanFACINE Yes Memoria (TENEX) 2 4-09 l mg tablet 00:00: Alexi 00 guanFACINE 2019-0 Yes Take 1 mg Me moria (TENEX) 2 4-09 by mouth l mg tablet 00:00: twice Alexi 00 daily. guanFACINE 2020-0 Yes 1mg Take 1 mg MD (TENEX) 2 4-09 by mouth Gerhard o mg tablet 00:00: twice n 00 daily. Sulfamethox Sulfamethox 2020-0 Yes ROCK TAKE 1 [facility] azole-Trime azole-Trime 3-25 BAPTIST TABLET BY ity of thoprim thoprim 00:00: PA-C MOUTH [place] 800-160 MG 800-160 MG 00 EVERY 12 Physici Oral Tablet Oral Tablet HOURS ans FREESTYLE 2020-0 Yes Memoria VERONICA 14 3-20 l DAY SENSOR 00:00: Alexi kit 00 FREESTYLE 2020-0 Yes Memoria VERONICA 14 3-20 l DAY SENSOR 00:00: [place] kit 00 FREESTYLE 2020-0 Yes MD VERONICA 14 3-20 Anderso DAY SENSOR 00:00: n kit 00 magnesium 2020-0 No Take 1 Memori a oxide 500 2-21 tablet l mg tablet 00:00: (500 mg) Herm dyesi 00 by mouth daily. ondansetron 2020-0 No Take 1 Shravan jennie (Zofran) 8 2-21 tablet (8 l mg tablet 00:00: mg) by Khang n 00 mouth every 8 (eight) hours as needed for nausea or vomiting. magnesium 2020-0 No Take 1 Memori a oxide 500 2-21 tablet l mg tablet 00:00: (500 mg) Herm deysi 00 by mouth daily. ondansetron 2020-0 No Take 1 Shravan jennie (Zofran) 8 2-21 tablet (8 l mg tablet 00:00: mg) by Khang n 00 mouth every 8 (eight) hours as needed for nausea or vomiting. Magnesium 2020-0 Yes magnesium UT Oxide 500 2-21 oxide 500 Healt h MG tablet 00:00: mg tablet 00 Magnesium 2020-0 Yes magnesium UT Oxide 500 2-21 oxide 500 Healt h MG tablet 00:00: mg tablet 00 Magnesium 2020-0 Yes magnesium UT Oxide 500 2-21 oxide 500 Healt h MG tablet 00:00: mg tablet 00 Magnesium 2020-0 Yes magnesium UT Oxide 500 2-21 oxide 500 Healt h MG tablet 00:00: mg tablet 00 Magnesium 2020-0 Yes magnesium UT Oxide 500 2-21 oxide 500 Healt h MG tablet 00:00: mg tablet 00 Magnesium 2020-0 Yes magnesium UT Oxide 500 2-21 oxide 500 Healt h MG tablet 00:00: mg tablet 00 Magnesium 2020-0 Yes magnesium UT Oxide 500 2-21 oxide 500 Healt h MG tablet 00:00: mg tablet 00 Magnesium 2020-0 Yes magnesium UT Oxide 500 2-21 oxide 500 Healt h MG tablet 00:00: mg tablet 00 Magnesium 2020-0 Yes magnesium UT Oxide 500 2-21 oxide 500 Healt h MG tablet 00:00: mg tablet 00 Magnesium 2020-0 Yes magnesium UT Oxide 500 2-21 oxide 500 Healt h MG tablet 00:00: mg tablet 00 Magnesium 2020-0 Yes magnesium UT Oxide 500 2-21 oxide 500 Healt h MG tablet 00:00: mg tablet 00 Magnesium 2020-0 Yes magnesium UT Oxide 500 2-21 oxide 500 Healt h MG tablet 00:00: mg tablet 00 Magnesium 2020-0 Yes magnesium UT Oxide 500 2-21 oxide 500 Healt h MG tablet 00:00: mg tablet 00 Magnesium 2020-0 Yes magnesium UT Oxide 500 2-21 oxide 500 Healt h MG tablet 00:00: mg tablet 00 Magnesium 2020-0 Yes magnesium UT Oxide 500 2-21 oxide 500 Healt h MG tablet 00:00: mg tablet 00 Magnesium 2020-0 Yes magnesium UT Oxide 500 2-21 oxide 500 Healt h MG tablet 00:00: mg tablet 00 Magnesium 2020-0 Yes magnesium UT Oxide 500 2-21 oxide 500 Healt h MG tablet 00:00: mg tablet 00 Magnesium 2020-0 Yes magnesium UT Oxide 500 2-21 oxide 500 Healt h MG tablet 00:00: mg tablet 00 Magnesium 2020-0 Yes magnesium [place] Oxide 500 2-21 oxide 500 [facility]alt [facility] MG tablet 00:00: mg tablet 00 Magnesium 2020-0 Yes magnesium [place] Oxide 500 2-21 oxide 500 [facility]alt [facility] MG tablet 00:00: mg tablet 00 magnesium 2020-0 2020- No 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 hydrALAZINE 2020-0 Yes 50 mg 3 Mem oria (APRESOLINE 2-05 (three) l ) 50 mg 00:00: times a [place] tablet 00 day. hydrALAZINE 2020-0 Yes 50 mg 3 Mem oria (APRESOLINE 2-05 (three) l ) 50 mg 00:00: times a [place] tablet 00 day. hydrALAZINE 2020-0 Yes 50mg 50 mg MD (APRESOLINE 2-05 twice Anderso ) 50 mg 00:00: daily. n tablet 00 hydrALAZINE 2020-0 Yes 50mg 50 mg. [facility] (Apresoline 2-05 Health ) 50 MG 00:00: tablet 00 hydrALAZINE 2020-0 Yes 50mg 50 mg. [facility] (Apresoline 2-05 Health ) 50 MG 00:00: tablet 00 Sulfamethox Sulfamethox 2020-0 Yes [place] QD TAKE 1 [facility] azole-Trime azole-Trime 1-29 [facility] TABLET ity of thoprim thoprim 00:00: PA-C DAILY [place] 800-160 MG 800-160 MG 00 Phy sici Oral Tablet Oral Tablet a ns nystatin 2020-0 Yes Apply Memoria (MYCOSTATIN 1-17 topically l ) 100,000 00:00: to [place] units/g 00 affected powder area(s) 3 (three) times a day. nystatin 2020-0 Yes Apply Memoria (MYCOSTATIN 1-17 topically l ) 100,000 00:00: to [place] units/g 00 affected powder area(s) 3 (three) times a day. nystatin 2020-0 Yes Rash of Apply MD (MYCOSTATIN 1-17 groin topically An derso ) 100,000 00:00: to n units/g 00 affected powder area(s) 3 (three) times a day. nystatin 2020-0 Yes Apply UT (Mycostatin 1-17 topically. He alth ) [id number] 00:00: UNIT/GM 00 powder nystatin 2020-0 Yes Apply UT (Mycostatin 1-17 topically. He alth ) [id number] 00:00: UNIT/GM 00 powder nystatin 2020-0 Yes Apply UT (Mycostatin 1-17 topically. He alth ) [id number] 00:00: UNIT/GM 00 powder nystatin 2020-0 Yes Apply UT (Mycostatin 1-17 topically. He alth ) 00:00: UNIT/GM 00 powder nystatin 2020-0 Yes Apply UT (Mycostatin 1-17 topically. He alth ) [id number] 00:00: UNIT/GM 00 powder nystatin 2020-0 Yes Apply UT (Mycostatin 1-17 topically. He alth ) 00:00: UNIT/GM 00 powder nystatin 2020-0 Yes Apply UT (Mycostatin 1-17 topically. He alth ) 00:00: UNIT/GM 00 powder nystatin 2020-0 Yes Apply UT (Mycostatin 1-17 topically. He alth ) 00:00: UNIT/GM 00 powder nystatin 2020-0 Yes Apply UT (Mycostatin 1-17 topically. He alth ) 00:00: UNIT/GM 00 powder nystatin 2020-0 Yes Apply UT (Mycostatin 1-17 topically. He alth ) 00:00: UNIT/GM 00 powder nystatin 2020-0 Yes Apply UT (Mycostatin 1-17 topically. He alth ) 00:00: UNIT/GM 00 powder nystatin 2020-0 Yes Apply UT (Mycostatin 1-17 topically. He alth ) [id number] 00:00: UNIT/GM 00 powder nystatin 2020-0 Yes Apply UT (Mycostatin 1-17 topically. He alth ) [id number] 00:00: UNIT/GM 00 powder nystatin 2020-0 Yes Apply UT (Mycostatin 1-17 topically. He alth ) [id number] 00:00: UNIT/GM 00 powder nystatin 2020-0 Yes Apply UT (Mycostatin 1-17 topically. He alth ) 00:00: UNIT/GM 00 powder nystatin 2020-0 Yes Apply UT (Mycostatin 1-17 topically. He alth ) [id number] 00:00: UNIT/GM 00 powder nystatin 2020-0 Yes Apply UT (Mycostatin 1-17 topically. He alth ) 00:00: UNIT/GM 00 powder nystatin 2020-0 Yes Apply UT (Mycostatin 1-17 topically. He alth ) 00:00: UNIT/GM 00 powder nystatin 2020-0 Yes Apply UT (Mycostatin 1-17 topically. He alth ) 00:00: UNIT/GM 00 powder nystatin 2020-0 Yes Apply UT (Mycostatin 1-17 topically. He alth ) [id number] 00:00: UNIT/GM 00 powder triamcinolo 2018-08 Yes triamcinol [place] ne 09-03 one [facility] ([facility]) 00:00: acetonide 0.1 % cream 00 0.1 % topical cream triamcinolo 2018-08 Yes triamcinol UT ne 09-03 one [facility] ([facility]) 00:00: acetonide 0.1 % cream 00 0.1 % topical cream triamcinolo 2018-08 Yes triamcinol UT ne 09-03 [facility] ([facility]) 00:00: acetonide 0.1 % cream 00 0.1 % topical cream triamcinolo 2018-08 Yes triamcinol UT ne 09-03 [facility] ([facility]) 00:00: acetonide 0.1 % cream 00 0.1 % topical cream triamcinolo 2018-08 Yes Apply Memor ia ne 08 topically l (KENALOG) 00:00: to [place] 0.1% cream 00 affected area(s) twice daily. triamcinolo 2018-08 Yes Apply Memor ia ne 08 topically l (KENALOG) 00:00: to [place] 0.1% cream 00 affected area(s) twice daily. triamcinolo 2018-08 Yes Allergy to Apply MD ne 09-03 drug topically Anderso (KENALOG) 00:00: to n 0.1% cream 00 affected area(s) twice daily. triamcinolo 2018-08 Yes triamcinol [place] ne 09-03 one [facility] ([facility]) 00:00: acetonide 0.1 % cream 00 0.1 % topical cream triamcinolo 2018-08 Yes triamcinol UT ne 09-03 one [facility] ([facility]) 00:00: acetonide 0.1 % cream 00 0.1 % topical cream triamcinolo 2018-08 Yes triamcinol UT ne 09-03 one [facility] ([facility]) 00:00: acetonide 0.1 % cream 00 0.1 % topical cream triamcinolo 2018-08 Yes triamcinol UT ne 09-03 [facility] ([facility]) 00:00: acetonide 0.1 % cream 00 0.1 % topical cream triamcinolo 2018-08 Yes triamcinol UT ne 09-03 [facility] ([facility]) 00:00: acetonide 0.1 % cream 00 0.1 % topical cream triamcinolo 2019- Yes triamcinol UT ne 09-03 [facility] ([facility]) 00:00: acetonide 0.1 % cream 00 0.1 % topical cream triamcinolo 2019- Yes triamcinol UT ne 09-03 [facility] ([facility]) 00:00: acetonide 0.1 % cream 00 0.1 % topical cream triamcinolo 2018-08 Yes triamcinol UT ne 09-03 [facility] ([facility]) 00:00: acetonide 0.1 % cream 00 0.1 % topical cream triamcinolo 2018- Yes triamcinol UT ne 09-03 [facility] ([facility]) 00:00: acetonide 0.1 % cream 00 0.1 % topical cream triamcinolo 2018- Yes triamcinol UT ne 09-03 [facility] ([facility]) 00:00: acetonide 0.1 % cream 00 0.1 % topical cream triamcinolo 2018- Yes triamcinol UT ne 09-03 [facility] ([facility]) 00:00: acetonide 0.1 % cream 00 0.1 % topical cream triamcinolo 2018- Yes triamcinol UT ne 09-03 [facility] ([facility]) 00:00: acetonide 0.1 % cream 00 0.1 % topical cream triamcinolo 2018- Yes triamcinol UT ne 09-03 [facility] ([facility]) 00:00: acetonide 0.1 % cream 00 0.1 % topical cream triamcinolo 2018- Yes triamcinol UT ne 09-03 [facility] ([facility]) 00:00: acetonide 0.1 % cream 00 0.1 % topical cream triamcinolo 2018- Yes triamcinol UT ne 09-03 [facility] ([facility]) 00:00: acetonide 0.1 % cream 00 0.1 % topical cream triamcinolo 2019- Yes triamcinol UT ne 09-03 [facility] ([facility]) 00:00: acetonide 0.1 % cream 00 0.1 % topical cream Sulfamethox Sulfamethox 2019-0 Yes [place] TAKE 1 [facility] azole-Trime azole-Trime 9-20 [facility] TABLET BY ity of thoprim thoprim 00:00: PA-C MOUTH [place] 800-160 MG 800-160 MG 00 EVERY 12 Physici Oral Tablet Oral Tablet HOURS ans Cephalexin Cephalexin Yes [place]OCK TAKE 1 TAB Univers 500 MG Oral 500 MG Oral 6-26 [facility] FOUR TIMES ity of Tablet Tablet 00:00: PA-C A DAY [place] 00 Physici ans clopidogrel Yes Take 75 mg Memoria (PLAVIX) 75 6-09 by mouth l mg tablet 00:00: daily. [place] clopidogrel Yes Take 75 mg Memoria (PLAVIX) 75 6-09 by mouth l mg tablet 00:00: daily. [place] clopidogrel Yes 75mg Take 75 mg MD (PLAVIX) 75 6-09 by mouth [place] rso mg tablet 00:00: daily. n 00 metFORMIN Yes Take 1,000 Me moria (GLUCOPHAGE 6-03 mg by l ) 500 mg 00:00: mouth [place] tablet 00 twice daily. metFORMIN Yes 1000mg Take 1,000 MD (GLUCOPHAGE 6-03 mg by Anderso ) 500 mg 00:00: mouth n tablet 00 twice daily. CARTIA XT Yes Take 300 Shravan jennie 300 mg 24 5-24 mg by l hr capsule 00:00: mouth [place] 00 daily. CARTIA XT Yes Take 300 Shravan jennie 300 mg 24 5-24 mg by l hr capsule 00:00: mouth [place] n 00 daily. CARTIA XT Yes 300mg Take 300 MD 300 mg 24 5-24 mg by Anderso hr capsule 00:00: mouth n 00 daily. Enoxaparin Enoxaparin Yes ROCK Inject Univers Sodium 30 Sodium 30 5-13 [facility] 0.3ML x 12 ity of MG/0.3ML MG/0.3ML 00:00: PA-C hours [place] Subcutaneou Subcutaneou 00 P hysici s Solution s Solution ans tiZANidine tiZANidine Yes [place] Q8H TAKE 1 Univers HCl - 4 MG HCl - 4 MG 5-01 [facility] TABLET ity of Oral Tablet Oral Tablet 00:00: PA-C EVERY 8 [place] 00 HOURS Physici NEEDED. ans Clindamycin Clindamycin Yes ROCK 1 Q0.3333D TAKE 1 [facility] HCl - 300 HCl - 300 4-10 [facility] CAPSULE 3 ity of MG Oral MG Oral 00:00: PA-C TIMES [place] Capsule Capsule 00 DAILY Physici ans Cephalexin Cephalexin Yes ROCK 1 Q0.25D TAKE 1 [facility] 500 MG Oral 500 MG Oral 3-25 [facility] CAPSULE 4 ity of Capsule Capsule 00:00: PA-C TIMES [place] 00 DAILY Physici ans Cephalexin Cephalexin Yes [place]OCK Q0.25D TAKE 1 [facility] 500 MG Oral 500 MG Oral 3-14 [facility] CAPSULE 4 ity of Capsule Capsule 00:00: PA-C TIMES [place] 00 DAILY. Physici ans VASCEPA 1 Yes Take 4 Memori a gram cap 3-12 capsules l 00:00: by mouth [place] 00 daily. VASCEPA 1 Yes Take 4 Memori a gram cap 3-12 capsules l 00:00: by mouth [place] 00 daily. VASCEPA 1 Yes 4{capsu Take 4 MD gram cap 3-12 le} capsules Anderso 00:00: by mouth n 00 daily. HUMULIN R Yes Inject 70 Mem oria U-500, 2-19 Units l CONC, 00:00: under the Alexi KWIKPEN 500 00 skin twice unit/mL (3 daily. mL) insulin Sliding pen scale HUMULIN R Yes Inject 70 Mem oria U-500, 2-19 Units l CONC, 00:00: under the [place] KWIKPEN 500 00 skin twice unit/mL (3 daily. mL) insulin Sliding pen scale HUMULIN R Yes Inject MD U-500, 2-19 under the Anderso CONC, 00:00: skin twice n KWIKPEN 500 00 daily. 35 unit/mL (3 units in mL) insulin the pen morning and 15 units at dinner metFORMIN 2017-08 Yes metformin [facility] (Glucophage 1-05 500 mg Health ) 500 MG 00:00: tablet tablet 00 aspirin 81 2017-08 Yes 81mg Take 81 mg U T MG EC 1-05 by mouth. Health tablet 00:00: 00 clopidogrel 2017-08 Yes clopidogre UT (Plavix) 75 1-05 l 75 mg Healt h MG tablet 00:00: tablet 00 ezetimibe 2017-08 Yes ezetimibe UT (Zetia) 10 1-05 10 mg Health MG tablet 00:00: tablet 00 insulin 2017-08 Yes Humulin R UT regular 1-05 U-500 Health (HumuLIN R 00:00: (Conc) U-500 00 Insulin KWIKPEN) Kwikpen 500 UNIT/ML 500 CONCENTRATE unit/mL (3 D injection mL) subcutaneo us metFORMIN 2017-08 Yes metformin UT (Glucophage 1-05 500 mg Health ) 500 MG 00:00: tablet tablet 00 aspirin 81 2017-08 Yes 81mg Take 81 mg U T MG EC 1-05 by mouth. Health tablet 00:00: 00 clopidogrel 2017-08 Yes clopidogre UT (Plavix) 75 1-05 l 75 mg Healt h MG tablet 00:00: tablet 00 ezetimibe 2017-08 Yes ezetimibe UT (Zetia) 10 1-05 10 mg Health MG tablet 00:00: tablet 00 insulin 2017-08 Yes Humulin R UT regular 1-05 U-500 Health (HumuLIN R 00:00: (Conc) U-500 00 Insulin KWIKPEN) Kwikpen 500 UNIT/ML 500 CONCENTRATE unit/mL (3 D injection mL) subcutaneo us metFORMIN 2017-08 Yes metformin UT (Glucophage 1-05 500 mg Health ) 500 MG 00:00: tablet tablet 00 aspirin 81 2017-08 Yes 81mg Take 81 mg U T MG EC 1-05 by mouth. Health tablet 00:00: 00 clopidogrel 2017-08 Yes clopidogre UT (Plavix) 75 1-05 l 75 mg Healt h MG tablet 00:00: tablet 00 ezetimibe 2017-08 Yes ezetimibe UT (Zetia) 10 1-05 10 mg Health MG tablet 00:00: tablet 00 insulin 2017-08 Yes Humulin R UT regular 1-05 U-500 Health (HumuLIN R 00:00: (Conc) U-500 00 Insulin KWIKPEN) Kwikpen 500 UNIT/ML 500 CONCENTRATE unit/mL (3 D injection mL) subcutaneo us metFORMIN 2017-08 Yes metformin UT (Glucophage 1-05 500 mg Health ) 500 MG 00:00: tablet tablet 00 aspirin 81 2017-08 Yes 81mg Take 81 mg U T MG EC 1-05 by mouth. Health tablet 00:00: 00 clopidogrel 2017-08 Yes clopidogre UT (Plavix) 75 1-05 l 75 mg Healt h MG tablet 00:00: tablet 00 ezetimibe 2017-08 Yes ezetimibe UT (Zetia) 10 1-05 10 mg Health MG tablet 00:00: tablet 00 insulin 2017-08 Yes Humulin R UT regular 1-05 U-500 Health (HumuLIN R 00:00: (Conc) U-500 00 Insulin KWIKPEN) Kwikpen 500 UNIT/ML 500 CONCENTRATE unit/mL (3 D injection mL) subcutaneo us metFORMIN 2017-08 Yes metformin UT (Glucophage 1-05 500 mg Health ) 500 MG 00:00: tablet tablet 00 aspirin 81 2017-08 Yes 81mg Take 81 mg U T MG EC 1-05 by mouth. Health tablet 00:00: 00 clopidogrel 2017-08 Yes clopidogre UT (Plavix) 75 1-05 l 75 mg Healt h MG tablet 00:00: tablet 00 ezetimibe 2017-08 Yes ezetimibe UT (Zetia) 10 1-05 10 mg Health MG tablet 00:00: tablet 00 insulin 2017-08 Yes Humulin R UT regular 1-05 U-500 Health (HumuLIN R 00:00: (Conc) U-500 00 Insulin KWIKPEN) Kwikpen 500 UNIT/ML 500 CONCENTRATE unit/mL (3 D injection mL) subcutaneo us metFORMIN 2017-08 Yes metformin UT (Glucophage 1-05 500 mg Health ) 500 MG 00:00: tablet tablet 00 aspirin 81 2017-08 Yes 81mg Take 81 mg U T MG EC 1-05 by mouth. Health tablet 00:00: 00 clopidogrel 2017-08 Yes clopidogre UT (Plavix) 75 1-05 l 75 mg Healt h MG tablet 00:00: tablet 00 ezetimibe 2017-08 Yes ezetimibe UT (Zetia) 10 1-05 10 mg Health MG tablet 00:00: tablet 00 insulin 2017-08 Yes Humulin R UT regular 1-05 U-500 Health (HumuLIN R 00:00: (Conc) U-500 00 Insulin KWIKPEN) Kwikpen 500 UNIT/ML 500 CONCENTRATE unit/mL (3 D injection mL) subcutaneo us metFORMIN 2017-08 Yes metformin UT (Glucophage 1-05 500 mg Health ) 500 MG 00:00: tablet tablet 00 aspirin 81 2017-08 Yes 81mg Take 81 mg U T MG EC 1-05 by mouth. Health tablet 00:00: 00 clopidogrel 2017-08 Yes clopidogre UT (Plavix) 75 1-05 l 75 mg Healt h MG tablet 00:00: tablet 00 ezetimibe 2017-08 Yes ezetimibe UT (Zetia) 10 1-05 10 mg Health MG tablet 00:00: tablet 00 insulin 2017-08 Yes Humulin R UT regular 1-05 U-500 Health (HumuLIN R 00:00: (Conc) U-500 00 Insulin KWIKPEN) Kwikpen 500 UNIT/ML 500 CONCENTRATE unit/mL (3 D injection mL) subcutaneo us metFORMIN 2017-08 Yes metformin UT (Glucophage 1-05 500 mg Health ) 500 MG 00:00: tablet tablet 00 aspirin 2017-08 Yes 81mg Take 81 mg U T MG EC 1-05 by mouth. Health tablet 00:00: 00 clopidogrel 2017-08 Yes clopidogre UT (Plavix) 75 1-05 l 75 mg Healt h MG tablet 00:00: tablet 00 ezetimibe 2017-08 Yes ezetimibe UT (Zetia) 10 1-05 10 mg Health MG tablet 00:00: tablet 00 insulin 2017-08 Yes Humulin R UT regular 1-05 U-500 Health (HumuLIN R 00:00: (Conc) U-500 00 Insulin KWIKPEN) Kwikpen 500 UNIT/ML 500 CONCENTRATE unit/mL (3 D injection mL) subcutaneo us metFORMIN 2017-08 Yes metformin UT (Glucophage 1-05 500 mg Health ) 500 MG 00:00: tablet tablet 00 aspirin 81 2017-08 Yes 81mg Take 81 mg U T MG EC 1-05 by mouth. Health tablet 00:00: 00 clopidogrel 2017-08 Yes clopidogre UT (Plavix) 75 1-05 l 75 mg Healt h MG tablet 00:00: tablet 00 ezetimibe 2017-08 Yes ezetimibe UT (Zetia) 10 1-05 10 mg Health MG tablet 00:00: tablet 00 insulin 2017-08 Yes Humulin R UT regular 1-05 U-500 Health (HumuLIN R 00:00: (Conc) U-500 00 Insulin KWIKPEN) Kwikpen 500 UNIT/ML 500 CONCENTRATE unit/mL (3 D injection mL) [facility] met[facility]MIN 2017-08 Yes metformin [facility] (Glucophage 1-05 500 mg Health ) 500 MG 00:00: tablet tablet 00 aspirin 81 2017-08 Yes 81mg Take 81 mg U T MG EC 1-05 by mouth. Health tablet 00:00: 00 clopidogrel 2017-08 Yes clopidogre UT (Plavix) 75 1-05 l 75 mg Healt h MG tablet 00:00: tablet 00 ezetimibe 2017-08 Yes ezetimibe UT (Zetia) 10 1-05 10 mg Health MG tablet 00:00: tablet 00 insulin 2017-08 Yes Humulin R UT regular 1-05 U-500 Health (HumuLIN R 00:00: (Conc) U-500 00 Insulin KWIKPEN) Kwikpen 500 UNIT/ML 500 CONCENTRATE unit/mL (3 D injection mL) [facility] met[facility]MIN 2017-08 Yes metformin [facility] (Glucophage 1-05 500 mg Health ) 500 MG 00:00: tablet tablet 00 aspirin 81 2017-08 Yes 81mg Take 81 mg U T MG EC 1-05 by mouth. Health tablet 00:00: 00 aspirin 81 2017-08 Yes 81mg Take 81 mg U T MG EC 1-05 by mouth. Health tablet 00:00: 00 clopidogrel 2017-08 Yes clopidogre UT (Plavix) 75 1-05 l 75 mg Healt h MG tablet 00:00: tablet 00 ezetimibe 2017-08 Yes ezetimibe UT (Zetia) 10 1-05 10 mg Health MG tablet 00:00: tablet 00 insulin 2017-08 Yes Humulin R UT regular 1-05 U-500 Health (HumuLIN R 00:00: (Conc) U-500 00 Insulin KWIKPEN) Kwikpen 500 UNIT/ML 500 CONCENTRATE unit/mL (3 D injection mL) [facility] metFORMIN 2017-08 Yes metformin [facility] (Glucophage 1-05 500 mg Health ) 500 MG 00:00: tablet tablet 00 clopidogrel 2017-08 Yes clopidogre UT (Plavix) 75 1-05 l 75 mg Healt h MG tablet 00:00: tablet 00 aspirin 81 2017-08 Yes 81mg Take 81 mg U T MG EC 1-05 by mouth. Health tablet 00:00: 00 clopidogrel 2017-08 Yes clopidogre UT (Plavix) 75 1-05 l 75 mg Healt h MG tablet 00:00: tablet 00 ezetimibe 2017-08 Yes ezetimibe UT (Zetia) 10 1-05 10 mg Health MG tablet 00:00: tablet 00 insulin 2017-08 Yes Humulin R UT regular 1-05 U-500 Health (HumuLIN R 00:00: (Conc) U-500 00 Insulin KWIKPEN) Kwikpen 500 UNIT/ML 500 CONCENTRATE unit/mL (3 D injection mL) [facility] metFORMIN 2017-08 Yes metformin [facility] (Glucophage 1-05 500 mg Health ) 500 MG 00:00: tablet tablet 00 ezetimibe 2017-08 Yes ezetimibe UT (Zetia) 10 1-05 10 mg Health MG tablet 00:00: tablet 00 aspirin 81 2017-08 Yes 81mg Take 81 mg U T MG EC 1-05 by mouth. Health tablet 00:00: 00 clopidogrel 2017-08 Yes clopidogre UT (Plavix) 75 1-05 l 75 mg Healt h MG tablet 00:00: tablet 00 ezetimibe 2017-08 Yes ezetimibe UT (Zetia) 10 1-05 10 mg Health MG tablet 00:00: tablet 00 insulin 2017-08 Yes Humulin R UT regular 1-05 U-500 Health (HumuLIN R 00:00: (Conc) U-500 00 Insulin KWIKPEN) Kwikpen 500 UNIT/ML 500 CONCENTRATE unit/mL (3 D injection mL) [facility] insulin 2017-08 Yes Humulin R UT regular 1-05 U-500 Health (HumuLIN R 00:00: (Conc) U-500 00 Insulin KWIKPEN) Kwikpen 500 UNIT/ML 500 CONCENTRATE unit/mL (3 D injection mL) [facility] metFORMIN 2017-08 Yes metformin [facility] (Glucophage 1-05 500 mg Health ) 500 MG 00:00: tablet tablet 00 aspirin 81 2017-08 Yes 81mg Take 81 mg U T MG EC 1-05 by mouth. Health tablet 00:00: 00 clopidogrel 2017-08 Yes clopidogre UT (Plavix) 75 1-05 l 75 mg Healt h MG tablet 00:00: tablet 00 ezetimibe 2017-08 Yes ezetimibe UT (Zetia) 10 1-05 10 mg Health MG tablet 00:00: tablet 00 insulin 2017-08 Yes Humulin R UT regular 1-05 U-500 Health (HumuLIN R 00:00: (Conc) U-500 00 Insulin KWIKPEN) Kwikpen 500 UNIT/ML 500 CONCENTRATE unit/mL (3 D injection mL) [facility] metFORMIN 2017-08 Yes metformin UT (Glucophage 1-05 500 mg Health ) 500 MG 00:00: tablet tablet 00 metFORMIN 2017-08 Yes metformin [facility] (Glucophage 1-05 500 mg Health ) 500 MG 00:00: tablet tablet 00 aspirin 81 2017-08 Yes 81mg Take 81 mg U T MG EC 1-05 by mouth. Health tablet 00:00: 00 clopidogrel 2017-08 Yes clopidogre UT (Plavix) 75 1-05 l 75 mg Healt h MG tablet 00:00: tablet 00 ezetimibe 2017-08 Yes ezetimibe UT (Zetia) 10 1-05 10 mg Health MG tablet 00:00: tablet 00 insulin 2017-08 Yes Humulin R UT regular 1-05 U-500 Health (HumuLIN R 00:00: (Conc) U-500 00 Insulin KWIKPEN) Kwikpen 500 UNIT/ML 500 CONCENTRATE unit/mL (3 D injection mL) [facility] metFORMIN 2017-08 Yes metformin UT (Glucophage 1-05 500 mg Health ) 500 MG 00:00: tablet tablet 00 aspirin 81 2017-08 Yes 81mg Take 81 mg U T MG EC 1-05 by mouth. Health tablet 00:00: 00 clopidogrel 2017-08 Yes clopidogre UT (Plavix) 75 1-05 l 75 mg Healt h MG tablet 00:00: tablet 00 ezetimibe 2017-08 Yes ezetimibe UT (Zetia) 10 1-05 10 mg Health MG tablet 00:00: tablet 00 insulin 2017-08 Yes Humulin R UT regular 1-05 U-500 Health (HumuLIN R 00:00: (Conc) U-500 00 Insulin KWIKPEN) Kwikpen 500 UNIT/ML 500 CONCENTRATE unit/mL (3 D injection mL) [facility] metFORMIN 2017-08 Yes metformin UT (Glucophage 1-05 500 mg Health ) 500 MG 00:00: tablet tablet 00 aspirin 81 2017-08 Yes 81mg Take 81 mg U T MG EC 1-05 by mouth. Health tablet 00:00: 00 clopidogrel 2017-08 Yes clopidogre UT (Plavix) 75 1-05 l 75 mg Healt h MG tablet 00:00: tablet 00 ezetimibe 2017-08 Yes ezetimibe UT (Zetia) 10 1-05 10 mg Health MG tablet 00:00: tablet 00 insulin 2017-08 Yes Humulin R UT regular 1-05 U-500 Health (HumuLIN R 00:00: (Conc) U-500 00 Insulin KWIKPEN) Kwikpen 500 UNIT/ML 500 CONCENTRATE unit/mL (3 D injection mL) [facility] met[facility]MIN 2017-08 Yes metformin [facility] (Glucophage 1-05 500 mg Health ) 500 MG 00:00: tablet tablet 00 aspirin 81 2017-08 Yes 81mg Take 81 mg U T MG EC 1-05 by mouth. Health tablet 00:00: 00 clopidogrel 2017-08 Yes clopidogre UT (Plavix) 75 1-05 l 75 mg Healt h MG tablet 00:00: tablet 00 ezetimibe 2017-08 Yes ezetimibe UT (Zetia) 10 1-05 10 mg Health MG tablet 00:00: tablet 00 insulin 2017-08 Yes Humulin R UT regular 1-05 U-500 Health (HumuLIN R 00:00: (Conc) U-500 00 Insulin KWIKPEN) Kwikpen 500 UNIT/ML 500 CONCENTRATE unit/mL (3 D injection mL) [facility] met[facility]MIN 2017-08 Yes metformin [facility] (Glucophage 1-05 500 mg Health ) 500 MG 00:00: tablet tablet 00 aspirin 81 2017-08 Yes 81mg Take 81 mg U T MG EC 1-05 by mouth. Health tablet 00:00: 00 clopidogrel 2017-08 Yes clopidogre UT (Plavix) 75 1-05 l 75 mg Healt h MG tablet 00:00: tablet 00 ezetimibe 2017-08 Yes ezetimibe UT (Zetia) 10 1-05 10 mg Health MG tablet 00:00: tablet 00 insulin 2017-08 Yes Humulin R UT regular 1-05 U-500 Health (HumuLIN R 00:00: (Conc) U-500 00 Insulin KWIKPEN) Kwikpen 500 UNIT/ML 500 CONCENTRATE unit/mL (3 D injection mL) [facility] metFORMIN metFORMIN 2017-08 Yes 2 Q0.5D TAKE [...] i ty of Tablet Tablet 00:00: TWICE [place] 00 DAILY Physici ans Cartia XT Cartia XT 2017-08 Yes 1 QD TAKE 1 U nivers 300 MG Oral 300 MG Oral 1-05 CAPSULE ity of Capsule Capsule 00:00: DAILY [place] Extended Extended 00 Physici Release 24 Release 24 ans Hour Hour guanFACINE guanFACINE 2017-08 Yes Q0.5D TAKE 1 Univers HCl - 1 MG HCl - 1 MG 1-05 TABLET i ty of Oral Tablet Oral Tablet 00:00: TWICE [place] 00 DAILY. Physici ans Testosteron Testosteron 2017-08 Yes TAKE 1ML Univers e Cypionate e Cypionate 1-05 EVERY 2 ity of Powder Powder 00:00: WEEKS [place] Physici ans Clopidogrel Clopidogrel 2017-08 Yes 1 QD TAKE 1 Univers Bisulfate Bisulfate 1-05 TABLET ity of 75 MG Oral 75 MG Oral 00:00: DAILY. [place] Tablet Tablet 00 Physici ans HumuLIN R HumuLIN R 2017-08 Yes as needed Univers U-500 U-500 1-05 ity of KwikPen 500 KwikPen 500 00:00: [place] UNIT/ML UNIT/ML 00 Physici Subcutaneou Subcutaneou a ns s Solution s Solution Pen-injecto Pen-injecto r r Aspirin Aspirin 2017-08 Yes 1 QD TAKE 1 Unive rs Adult Low Adult Low 1-05 TABLET ity of Dose 81 MG Dose 81 MG 00:00: DAILY. [place] Oral Tablet Oral Tablet 00 P hysici Delayed Delayed ans Release Release Vitamin C Vitamin C 2017-08 Yes 1 Q0.5D TAKE 1 Univers 500 MG Oral 500 MG Oral 1-05 CAPSULE ity of Capsule Capsule 00:00: TWICE [place] 00 DAILY Physici ans Levothyroxi Levothyroxi 2017-08 Yes QD TAKE 1 Univers ne Sodium ne Sodium 1-05 TABLET ity of 50 MCG Oral 50 MCG Oral 00:00: DAILY [place] Tablet Tablet 00 DIRECTED. Physic i ans Econazole Econazole 2017-08 Yes as needed Univers Nitrate 1 % Nitrate 1 % 1-05 i ty of External External 00:00: [place] Cream Cream 00 Physici ans Vitamin D Vitamin D 2017-08 Yes 1 Q0.5D TAKE 1 Univers 50 MCG 50 MCG 1-05 CAPSULE ity of (1999) (1999) 00:00: TWICE [place] Oral Oral 00 [...] Yes TAKE Univers n AREDS n AREDS 1-05 DIRECTED. ity of Oral Oral 00:00: [place] Capsule Capsule 00 Physici ans Fish Oil Fish Oil 2017-08 Yes 1 Q0.5D TAKE 1 Un arline 1000 MG 1000 MG 1-05 CAPSULE ity of Oral Oral 00:00: TWICE [place] Capsule Capsule 00 DAILY [facility]ici ans Probiotic Probiotic 2017-08 Yes USE U nivers Oral Oral 1-05 DIRECTED. ity of Capsule Capsule 00:00: [place] 00 [facility] Centrum Centrum 2017-08 Yes 1 QD TAKE 1 Unive rs TABS TABS 1-05 TABLET ity of 00:00: DAILY. [place] 00 [facility]ici ans Immunizations Ordered Immunization Filled Immunization Date Status Commen ts Source Name Name [employer] SARS-CoV-2 2020-12-05 Completed [facility] Vaccination 00:00:00 [place] [employer] SARS-CoV-2 2020-12-05 Completed [facility] Vaccination 00:00:00 [facility] [employer] SARS-CoV-2 2020-12-05 Completed [facility] Vaccination 00:00:00 [employer] SARS-CoV-2 2020-11-14 Completed [facility] Vaccination 00:00:00 [place] [employer] SARS-CoV-2 2020-11-14 Completed [facility] Vaccination 00:00:00 [place] [employer] SARS-CoV-2 2020-11-14 Completed [facility] r[facility] Vaccination 00:00:00 Vital Signs Vital Name Observation Time Observation Value Comments Source Systolic blood 2021-06-29 138 mm[Hg] [facility] pressure 13:51:00 Diastolic blood 2021-06-29 70 mm[Hg] [facility] pressure 13:51:00 Heart rate 2021-06-29 80 /min [facility] 13:51:00 Body height 2021-06-29 180.3 cm [facility] 13:51:00 Body weight 2021-06-29 102.513 kg [facility] 13:51:00 BMI 2021-06-29 31.52 kg/m2 [facility] 13:51:00 Systolic blood 2021-06-08 135 mm[Hg] [facility] pressure 14:24:00 Diastolic blood 2021-06-08 64 mm[Hg] [facility] pressure 14:24:00 Heart rate 2021-06-08 75 /min [facility] 14:24:00 Body height 2021-06-08 180.3 cm [facility] 14:24:00 Body weight 2021-06-08 102.967 kg [facility] 14:24:00 BMI 2021-06-08 31.66 kg/m2 [facility] 14:24:00 Systolic blood 2021-04-20 137 mm[Hg] [facility] pressure 13:14:00 Diastolic blood 2021-04-20 71 mm[Hg] [facility] pressure 13:14:00 Heart rate 2021-04-20 83 /min [facility] 13:14:00 Body height 2021-04-20 180.3 cm [facility] 13:14:00 Body weight 2021-04-20 113.399 kg [facility] 13:14:00 BMI 2021-04-20 34.87 kg/m2 [facility] 13:14:00 Systolic blood 2021-04-20 137 mm[Hg] [facility] pressure 13:14:00 Diastolic blood 2021-04-20 71 mm[Hg] [facility] pressure 13:14:00 Heart rate 2021-04-20 83 /min [facility] 13:14:00 Body height 2021-04-20 180.3 cm [facility] 13:14:00 Body weight 2021-04-20 113.399 kg [facility] 13:14:00 BMI 2021-04-20 34.87 kg/m2 [facility] 13:14:00 Systolic blood 2021-03-16 154 mm[Hg] [facility] pressure 13:31:00 Diastolic blood 2021-03-16 73 mm[Hg] [facility] pressure 13:31:00 Heart rate 2021-03-16 78 /min [facility] 13:31:00 Body height 2021-03-16 180.3 cm [facility] 13:31:00 Body weight 2021-03-16 113.399 kg [facility] 13:31:00 BMI 2021-03-16 34.87 kg/m2 [facility] 13:31:00 Systolic blood 2021-03-16 154 mm[Hg] [facility] pressure 13:31:00 Diastolic blood 2021-03-16 73 mm[Hg] [facility] pressure 13:31:00 Heart rate 2021-03-16 78 /min [facility] 13:31:00 Body height 2021-03-16 180.3 cm [facility] 13:31:00 Body weight 2021-03-16 113.399 kg [facility] 13:31:00 BMI 2021-03-16 34.87 kg/m2 [facility] 13:31:00 Systolic blood 2021-02-16 124 mm[Hg] [facility] pressure 13:36:00 Diastolic blood 2021-02-16 79 mm[Hg] [facility] pressure 13:36:00 Heart rate 2021-02-16 80 /min [facility] 13:36:00 Body height 2021-02-16 180.3 cm [facility] 13:36:00 Body weight 2021-02-16 113.853 kg [facility] 13:36:00 BMI 2021-02-16 35.01 kg/m2 [facility] 13:36:00 Systolic blood 2021-02-16 124 mm[Hg] [facility] pressure 13:36:00 Diastolic blood 2021-02-16 79 mm[Hg] [facility] pressure 13:36:00 Heart rate 2021-02-16 80 /min [facility] 13:36:00 Body height 2021-02-16 180.3 cm [facility] 13:36:00 Body weight 2021-02-16 113.853 kg [facility] 13:36:00 BMI 2021-02-16 35.01 kg/m2 [facility] 13:36:00 Systolic blood 2021-02-09 159 mm[Hg] [facility] pressure 13:36:00 Diastolic blood 2021-02-09 77 mm[Hg] [facility] pressure 13:36:00 Heart rate 2021-02-09 81 /min [facility] 13:36:00 Body height 2021-02-09 180.3 cm [facility] 13:36:00 Body weight 2021-02-09 116.574 kg [facility] 13:36:00 BMI 2021-02-09 35.84 kg/m2 [facility] 13:36:00 Systolic blood 2021-02-09 159 mm[Hg] [facility] pressure 13:36:00 Diastolic blood 2021-02-09 77 mm[Hg] [facility] pressure 13:36:00 Heart rate 2021-02-09 81 /min [facility] 13:36:00 Body height 2021-02-09 180.3 cm [facility] 13:36:00 Body weight 2021-02-09 116.574 kg [facility] 13:36:00 BMI 2021-02-09 35.84 kg/m2 [facility] 13:36:00 WEIGHT 2021-02-02 117.4 kg 13:42:00 WEIGHT 2021-02-02 117.4 kg 13:42:00 WEIGHT 2021-02-02 117.4 kg 13:42:00 Systolic blood 2021-01-26 122 mm[Hg] [facility] pressure 13:41:00 Diastolic blood 2021-01-26 64 mm[Hg] [facility] pressure 13:41:00 Heart rate 2021-01-26 86 /min [facility] 13:41:00 Body height 2021-01-26 180.3 cm [facility] 13:41:00 Body weight 2021-01-26 120.203 kg [facility] 13:41:00 BMI 2021-01-26 36.96 kg/m2 [facility] 13:41:00 Systolic blood 2021-01-26 122 mm[Hg] [facility] pressure 13:41:00 Diastolic blood 2021-01-26 64 mm[Hg] [facility] pressure 13:41:00 Heart rate 2021-01-26 86 /min [facility] 13:41:00 Body height 2021-01-26 180.3 cm [facility] 13:41:00 Body weight 2021-01-26 120.203 kg [facility] 13:41:00 BMI 2021-01-26 36.96 kg/m2 [facility] 13:41:00 Systolic blood 2021-01-05 159 mm[Hg] [facility] pressure 13:29:00 Diastolic blood 2021-01-05 85 mm[Hg] [facility] pressure 13:29:00 Heart rate 2021-01-05 82 /min [facility] 13:29:00 Body height 2021-01-05 180.3 cm [facility] 13:29:00 Body weight 2021-01-05 120.203 kg [facility] 13:29:00 BMI 2021-01-05 36.96 kg/m2 [facility] 13:29:00 WEIGHT 2020-12-30 120.5 kg 13:01:00 WEIGHT 2020-12-30 120.5 kg 13:01:00 WEIGHT 2020-12-30 120.5 kg 13:01:00 WEIGHT 2020-12-06 124 kg 15:40:00 WEIGHT 2020-12-06 124 kg 15:40:00 WEIGHT 2020-12-06 124 kg 15:40:00 WEIGHT 2020-11-24 125.2 kg 13:26:00 WEIGHT 2020-11-24 125.2 kg 13:26:00 WEIGHT 2020-11-24 125.2 kg 13:26:00 WEIGHT 2020-11-11 125.4 kg 08:21:00 WEIGHT 2020-11-11 125.4 kg 08:21:00 WEIGHT 2020-11-11 125.4 kg 08:21:00 WEIGHT 2020-10-27 125 kg 13:20:55 WEIGHT 2020-10-27 125 kg 13:20:55 WEIGHT 2020-10-27 125 kg 13:20:55 HEIGHT 2020-09-30 180.5 cm 10:34:00 WEIGHT 2020-09-30 134.6 kg 10:34:00 HEIGHT 2020-09-30 180.5 cm 10:34:00 WEIGHT 2020-09-30 134.6 kg 10:34:00 HEIGHT 2020-09-30 180.5 cm 10:34:00 WEIGHT 2020-09-30 134.6 kg 10:34:00 WEIGHT 2020-09-08 134.6 kg 14:38:00 WEIGHT 2020-09-08 134.6 kg 14:38:00 WEIGHT 2020-09-08 134.6 kg 14:38:00 WEIGHT 2020-08-26 132.1 kg 09:24:00 WEIGHT 2020-08-26 132.1 kg 09:24:00 WEIGHT 2020-08-26 132.1 kg 09:24:00 HEIGHT 2020-08-10 180.5 cm 13:06:11 WEIGHT 2020-08-10 137.5 kg 13:06:11 HEIGHT 2020-08-10 180.5 cm 13:06:2020-08-10 137.5 kg 13:06:11 HEIGHT 2020-08-10 180.5 cm 13:06:11 2020-08-10 137.5 kg 13:06:11 2020-07-29 136.4 kg 13:31:00 WEIGHT 2020-07-29 136.4 kg 13:31:00 HEIGHT 2020-07-09 180.5 cm 09:46:00 WEIGHT 2020-07-09 134.5 kg 09:46:00 HEIGHT 2020-07-09 180.5 cm 09:46:00 2020-07-09 134.5 kg 09:46:00 HEIGHT 2020-06-28 180.5 cm 09:13:00 WEIGHT 2020-06-28 131 kg 09:13:00 HEIGHT 2020-06-28 180.5 cm 09:13:00 2020-06-28 131 kg 09:13:00 2020-05-28 131.9 kg 14:37:00 2020-05-28 131.9 kg 14:37:00 HEIGHT 2020-05-27 180.5 cm 09:17:00 2020-05-27 130.3 kg 09:17:00 HEIGHT 2020-05-27 180.5 cm 09:17:00 2020-05-27 130.3 kg 09:17:00 2020-04-28 132.2 kg 13:23:00 2020-04-28 132.2 kg 13:23:00 HEIGHT 2020-04-16 180.5 cm 10:28:00 WEIGHT 2020-04-16 131.8 kg 10:28:00 WEIGHT 2020-04-15 130 kg 06:48:00 WEIGHT 2020-04-07 131.6 kg 13:18:00 WEIGHT 2020-04-01 132.7 kg 14:39:04 HEIGHT 2020-04-01 180.5 cm 10:08:00 WEIGHT 2020-04-01 131 kg 10:08:00 WEIGHT 2020-03-05 132.8 kg 15:13:36 WEIGHT 2020-02-25 138.1 kg 00:00:00 WEIGHT 2020-01-28 130.3 kg 00:00:00 Systolic blood 2021-06-21 116 mm[Hg] MD To pressure 14:13:19 Diastolic blood 2021-06-21 72 mm[Hg] MD To pressure 14:13:19 Heart rate 2021-06-21 77 /min MD To 14:13:19 Body temperature 2021-06-21 36.5 Abi MD To 14:13:19 Respiratory rate 2021-06-21 16 /min MD To 14:13:19 Oxygen saturation 2021-06-21 97 /min MD Mali lowe in Arterial blood 14:13:19 by Pulse oximetry Body weight 2021-06-20 96.8 kg MD To 19:23:00 BMI 2021-06-20 29.71 kg/m2 MD To 19:23:00 Body height 2021-06-06 180.5 cm MD To 15:53:00 Systolic (mm Hg) 2021-04-29 [facility] Zain rmann 04:15:00 Diastolic (mm Hg) 2021-04-29 [facility] Randolph ermann 04:15:00 Heart Rate 2021-04-29 Eliud Quiñonez n 04:15:00 Temperature Oral 2021-04-29 36.61 Abi [facility] Zain rmann (F) 04:15:00 Respitory Rate 2021-04-29 [facility]i 04:15:00 Height 2021-04-29 180.5 cm Eliud Quiñonez n 00:50:26 Weight 2021-04-29 Eliud Schultean n 00:50:26 Systolic (mm Hg) 2021-03-30 [facility] Zain rmann 19:22:34 Diastolic (mm Hg) 2021-03-30 [facility] H ermann 19:22:34 Heart Rate 2021-03-30 Eliud Schultean n 19:22:34 Temperature Oral 2021-03-30 36.78 Abi [facility] Zain rmann (F) 19:22:34 Respitory Rate 2021-03-30 [facility] 19:22:34 Weight 2021-03-30 [facility] 19:19:00 Systolic blood 2020-12-15 162 mm[Hg] [facility] 08[facility]10:00 [place] [facility] Diastolic blood 2020-12-15 87 mm[Hg] [facility] pressure 08:10:00 [place] [facility] Heart Rate 2020-12-15 79 /min [facility] 08:10:00 [place] [facility] Systolic blood 2020-12-01 119 mm[Hg] [facility] pressure 08:32:00 [place] [facility] Diastolic blood 2020-12-01 68 mm[Hg] [facility] pressure 08:32:00 [place] [facility] Heart Rate 2020-12-01 86 /min [facility] 08:32:00 [place] [facility] Systolic blood 2020-11-17 158 mm[Hg] [facility] pressure 15:21:00 [place] [facility] Diastolic blood 2020-11-17 77 mm[Hg] [facility] pressure 15:21:00 [place] [facility] Heart Rate 2020-11-17 90 /min [facility] 15:21:00 [place] [facility] Systolic blood 2020-11-03 104 mm[Hg] [place] [facility] [place] [facility] 11:40:00 Position: [place] [facility] Diastolic blood 2020-11-03 66 mm[Hg] [place] [facility] [place] [facility] pressure 11:40:00 Position: [place] [facility] Heart Rate 2020-11-03 96 /min [facility] 11:40:00 [place] [facility] Systolic blood 2020-10-22 138 mm[Hg] [facility] pressure 08:08:00 [place] [facility] Diastolic blood 2020-10-22 74 mm[Hg] [facility] pressure 08:08:00 [place] [facility] Heart Rate 2020-10-22 77 /min [facility] 08:08:00 [place] [facility] Systolic blood 2020-10-06 105 mm[Hg] [facility] pressure 09:33:00 [place] [facility] Diastolic blood 2020-10-06 65 mm[Hg] [facility] pressure 09:33:00 [place] [facility] Heart Rate 2020-10-06 82 /min [facility] 09:33:00 [place] [facility] Height 2020-09-30 180.5 cm [facility] n 16:34:00 Systolic blood 2020-09-10 149 mm[Hg] [facility] [...] Physician s Heart Rate 2020-01-14 82 /min [facility] 08:46:00 [place] [facility] Systolic blood 2019-10-22 123 mm[Hg] [facility] pressure 08:02:00 [place] [facility] Diastolic blood 2019-10-22 79 mm[Hg] [facility] pressure 08:02:00 [place] [facility] Body height 2019-10-22 70 [in_us] [facility] 08:02:00 [place] [facility] Weight 2019-10-22 296 [lb_av] [facility] 08:02:00 [place] [facility] Body mass index 2019-10-22 42.47 kg/m2 [facility] f (BMI) [Ratio] 08:02:00 [place] [facility] Heart Rate 2019-10-22 77 /min [facility] 08:02:00 [place] [facility] Systolic blood 2019-09-24 178 mm[Hg] [facility] pressure 08:24:00 [place] [facility] Diastolic blood 2019-09-24 105 mm[Hg] [facility] pressure 08:24:00 [place] [facility] Body temperature 2019-09-24 97.6 [degF] [facility] 08:24:00 [place] [facility] Heart Rate 2019-09-24 70 /min [facility] 08:24:00 [place] [facility] BP Systolic 2019-08-13 192 mm[Hg] [facility] 08:47:00 [place] [facility] BP Diastolic 2019-08-13 94 mm[Hg] [facility] 08:47:00 [place] [facility] Height 2019-08-13 70 [in_us] [facility] 08:47:00 [place] [facility] Weight 2019-08-13 296 [lb_av] [facility] 08:47:00 [place] [facility] Body Mass Index 2019-08-13 42.47 kg/m2 [facility] Calculated 08:47:00 [place] [facility] Temperature 2019-08-13 97.5 [degF] Method: Oral [facility] 08:47:00 [place] [facility] Heart Rate 2019-08-13 72 /min [facility] 08:47:00 [place] [facility] BP Systolic 2019-07-30 164 mm[Hg] [facility] 09:09:00 [place] [facility] BP Diastolic 2019-07-30 83 mm[Hg] [facility] 09:09:00 [place] [facility] Temperature 2019-07-30 97.7 [degF] University 09:09:00 [place] [facility] Heart Rate 2019-07-30 75 /min [facility] 09:09:00 [place] [facility] BP Systolic 2019-07-16 152 mm[Hg] [facility] 08:40:00 [place] [facility] BP Diastolic 2019-07-16 77 mm[Hg] University 08:40:00 [place] [facility] Height 2019-07-16 70 [in_us] [facility] 08:40:00 [place] [facility] Weight 2019-07-16 296 [...] s BP Diastolic 2019-07-02 69 mm[Hg] [facility] 08:14:00 [place] [facility] Height 2019-07-02 70 [in_us] [facility] 08:14:00 [place] [facility] Weight 2019-07-02 296 [lb_av] [facility] 08:14:00 [place] [facility] Body Mass Index 2019-07-02 42.47 kg/m2 [facility] Calculated 08:14:00 [place] [facility] Temperature 2019-07-02 98.2 [degF] Method: Oral [facility] 08:14:00 [place] [facility] Heart Rate 2019-07-02 76 /min University 08:14:00 [place] [facility] BP Systolic 2019-06-18 135 mm[Hg] [facility] 08:28:00 [place] [facility] BP Diastolic 2019-06-18 74 mm[Hg] University 08:28:00 [place] [facility] Height 2019-06-18 70 [in_us] University 08:28:00 [place] [facility] Weight 2019-06-18 296 [lb_av] [facility] 08:28:00 [place] [facility] Body Mass Index 2019-06-18 42.47 kg/m2 [facility] Calculated 08:28:00 [place] [facility] Temperature 2019-06-18 98.1 [degF] Method: Oral [facility] 08:28:00 [place] [facility] Heart Rate 2019-06-18 79 /min [facility] 08:28:00 [place] [facility] BP Systolic 2019-05-27 118 mm[Hg] Location: [facility] to [facility] 09:13:00 Position: [place] [facility] S[facility] BP Diastolic 2019-05-27 66 mm[Hg] Location: [facility] to [facility] 09:13:00 Position: [place] [facility] Height 2019-05-27 70 [in_us] [facility] 09:13:00 [place] [facility] Weight 2019-05-27 296 [lb_av] [facility] 09:13:00 [place] [facility] Body Mass Index 2019-05-27 42.47 kg/m2 [facility] Calculated 09:13:00 [place] [facility] Temperature 2019-05-27 97.8 [degF] Method: Oral [facility] 09:13:00 [place] [facility] Heart Rate 2019-05-27 74 /min [facility] 09:13:00 [place] [facility] BP Systolic 2019-05-21 139 mm[Hg] [facility] 10:08:00 [place] [facility] BP Diastolic 2019-05-21 73 mm[Hg] [facility] 10:08:00 [place] [facility] Weight 2019-05-21 296 [lb_av] [facility] 10:08:00 [place] [facility] Body Mass Index 2019-05-21 42.47 kg/m2 [facility] Calculated 10:08:00 [place] [facility] Temperature 2019-05-21 97.5 [degF] University 10:08:00 [place] [facility] Heart Rate 2019-05-21 70 /min [facility] 10:08:00 [place] [facility] BP Systolic 2019-04-30 110 mm[Hg] University 08:42:00 [place] [facility] BP Diastolic 2019-04-30 64 mm[Hg] [facility] 08:42:00 [place] [facility] Temperature 2019-04-30 97.8 [degF] [facility] 08:42:00 [place] [facility] Heart Rate 2019-04-30 76 /min [facility] 08:42:00 [place] [facility] BP Systolic 2019-04-02 122 mm[Hg] [facility] 08:33:00 [place] [facility] BP Diastolic 2019-04-02 74 mm[Hg] [facility] 08:33:00 [place] [facility] Temperature 2019-04-02 98 [degF] [facility] 08:33:00 [place] [facility] Heart Rate 2019-04-02 69 /min [facility] 08:33:00 [place] [facility] BP Systolic 2019-03-05 144 mm[Hg] [facility] 08:45:00 [place] [facility] BP Diastolic 2019-03-05 73 mm[Hg] [facility] 08:45:00 [place] [facility] Height 2019-03-05 70 [in_us] [facility] 08:45:00 [place] [facility] Weight 2019-03-05 265 [lb_av] University 08:45:00 [place] [facility] Body Mass Index 2019-03-05 38.02 kg/m2 [facility] f Calculated 08:45:00 [place] [facility] Temperature 2019-03-05 97.6 [degF] [facility] 08:45:00 [place] [facility] Heart Rate 2019-03-05 72 /min [facility] 08:45:00 [place] [facility] BP Systolic 2019-02-19 148 mm[Hg] University 08:40:00 [place] [facility] BP Diastolic 2019-02-19 78 mm[Hg] [facility] 08:40:00 [place] [facility] Temperature 2019-02-19 97.4 [degF] University 08:40:00 [place] [facility] Heart Rate 2019-02-19 68 /min [facility] 08:40:00 [place] [facility] BP Systolic 2019-02-05 123 mm[Hg] [facility] 09:15:00 [place] [facility] BP Diastolic 2019-02-05 68 mm[Hg] University 09:15:00 [place] [facility] Temperature 2019-02-05 97.5 [degF] University 09:15:00 [place] [facility] Heart Rate 2019-02-05 77 /min [facility] 09:15:00 [place] [facility] BP Systolic 2019-01-29 132 mm[Hg] [facility] 08:26:00 [place] [facility] BP Diastolic 2019-01-29 77 mm[Hg] [facility] 08:26:00 [place] [facility] Temperature 2019-01-29 97.8 [degF] [facility] 08:26:00 [place] [facility] Heart Rate 2019-01-29 77 /min [facility] 08:26:00 [place] [facility] BP Systolic 2019-01-22 138 mm[Hg] [facility] 09:10:00 [place] [facility] BP Diastolic 2019-01-22 77 mm[Hg] University 09:10:00 [place] [facility] Temperature 2019-01-22 97.4 [degF] [facility] 09:10:00 [place] [facility] Heart Rate 2019-01-22 72 /min [facility] 09:10:00 [place] [facility] BP Systolic 2019-01-15 117 mm[Hg] University 09:45:00 [place] [facility] BP Diastolic 2019-01-15 69 mm[Hg] [facility] 09:45:00 [place] [facility] Temperature 2019-01-15 97.9 [degF] [facility] 09:45:00 [place] [facility] Heart Rate 2019-01-15 70 /min University 09:45:00 [place] [facility] BP Systolic 2019-01-08 130 mm[Hg] [facility] 09:49:00 [place] [facility] BP Diastolic 2019-01-08 74 mm[Hg] [facility] 09:49:00 [place] [facility] Temperature 2019-01-08 98 [degF] [facility] 09:49:00 [place] [facility] Heart Rate 2019-01-08 64 /min [facility] 09:49:00 [place] [facility] BP Systolic 2019-01-01 127 mm[Hg] [facility] 08:20:00 [place] [facility] BP Diastolic 2019-01-01 68 mm[Hg] [facility] 08:20:00 [place] [facility] Temperature 2019-01-01 97.8 [degF] [facility] 08:20:00 [place] [facility] Heart Rate 2019-01-01 68 /min [facility] 08:20:00 [place] [facility] BP Systolic 2018 122 mm[Hg] [facility] 09:31:00 [place] [facility] BP Diastolic 2018 65 mm[Hg] [facility] 09:31:00 [place] [facility] Temperature 2018 97.9 [degF] University 09:31:00 [place] [facility] Heart Rate 2018 71 /min [facility] 09:31:00 [place] [facility] BP Systolic 2018-12-04 102 mm[Hg] [facility] 09:00:00 [place] [facility] BP Diastolic 2018-12-04 67 mm[Hg] [facility] 09:00:00 [place] [facility] Temperature 2018-12-04 97.7 [degF] [facility] 09:00:00 [place] [facility] Heart Rate 2018-12-04 70 /min [facility] 09:00:00 [place] [facility] BP Systolic 2018-11-20 123 mm[Hg] [facility] 13:28:00 [place] [facility] BP Diastolic 2018-11-20 73 mm[Hg] [facility] 13:28:00 [place] [facility] Temperature 2018-11-20 97.9 [degF] [facility] 13:28:00 [place] [facility] Heart Rate 2018-11-20 86 /min [facility] 13:28:00 [place] [facility] BP Systolic 2018-11-06 103 mm[Hg] University 10:00:00 [place] [facility] BP Diastolic 2018-11-06 63 mm[Hg] [facility] 10:00:00 [place] [facility] Temperature 2018-11-06 98 [degF] University 10:00:00 [place] [facility] Heart Rate 2018-11-06 75 /min [facility] 10:00:00 [place] [facility] BP Systolic 2018-09-25 146 mm[Hg] [facility] 08:47:00 [place] [facility] BP Diastolic 2018-09-25 87 mm[Hg] [facility] 08:47:00 [place] [facility] Height 2018-09-25 70 [in_us] [facility] 08:47:00 [place] [facility] Weight 2018-09-25 265 [lb_av] University 08:47:00 [place] [facility] Body Mass Index 2018-09-25 38.02 kg/m2 [facility] o f Calculated 08:47:00 [place] [facility] Temperature 2018-09-25 97.9 [degF] [facility] 08:47:00 [place] [facility] Heart Rate 2018-09-25 72 /min [facility] 08:47:00 [place] [facility] BP Systolic 2018-06-28 146 mm[Hg] [facility] 09:30:00 [place] [facility] BP Diastolic 2018-06-28 81 mm[Hg] [facility] 09:30:00 [place] [facility] Temperature 2018-06-28 97 [degF] [facility] 09:30:00 [place] [facility] Heart Rate 2018-06-28 68 /min [facility] 09:30:00 [place] [facility] BP Systolic 2018-03-29 137 mm[Hg] [place] [facility] [place] [facility] 13:41:00 Position: [place] [facility] BP Diastolic 2018-03-29 78 mm[Hg] [place] [facility] [place] [facility] 13:41:00 Position: [place] [facility] Temperature 2018-03-29 97.6 [degF] Method: Oral [facility] 13:41:00 [place] [facility] Heart Rate 2018-03-29 73 /min [facility] 13:41:00 [place] [facility] BP Systolic 2017-11-09 127 mm[Hg] [facility] 11:22:00 [place] [facility] BP Diastolic 2017-11-09 73 mm[Hg] [facility] 11:22:00 [place] [facility] Temperature 2017-11-09 97.1 [degF] [facility] 11:22:00 [place] [facility] Heart Rate 2017-11-09 71 /min [facility] 11:22:00 [place] [facility] Procedures Procedure Date / Time Performing Source Performed Clinician COMPLETE BLOOD COUNT W/ 2021-06-20 Xochitl Cee MD Jose L son DIFFERENTIAL 19:13:00 C REACTIVE PROTEIN 2021-06-20 Jaye, Xochitl To 19:13:00 SEDIMENTATION RATE 2021-06-20 Xochitl Cee MD NON-AUTOMATED 19:13:00 URINALYSIS WITH MICROSCOPIC 2021-06-20 Xochitl Cee MD nderson IF INDICATED 19:13:00 PROTEIN / CREATININE RATIO 2021-06-20 Xochitl Cee MD derson URINE 19:13:00 Results CBC 2021-06-20 Xochitl Cee MD 19:13:00 MANUAL DIFFERENTIAL 2021-06-20 Xochitl Cee MD 19:13:00 URINALYSIS MICROSCOPIC 2021-06-20 Jaye, Xochitl VILLEGAS Gerhard on 19:13:00 COMPREHENSIVE METABOLIC PANEL 2021-06-20 Xochitl Cee MD 18:40:00 LACTATE DEHYDROGENASE 2021-06-20 Xochitl Cee MDo n 18:40:00 MAGNESIUM LEVEL 2021-06-20 Xochitl Cee MD 18:40:00 PHOSPHORUS LEVEL 2021-06-20 Xochitl Cee MD 18:40:00 THYROID STIMULATING HORMONE 2021-06-20 Xochitl Cee MD A nderson 18:40:00 FREE THYROXINE 2021-06-20 Adriazola, Xochitl To 18:40:00 GLUCOSE LEVEL 2021-06-20 Adriazola, Xochitl To 18:40:00 BLOOD UREA NITROGEN 2021-06-20 Adriazola, Xochitl To 18:40:00 ELECTROLYTE PANEL 2021-06-20 Adriazola, Xochitl To 18:40:00 SERUM CREATININE 2021-06-20 Adriazola, Xochitl To 18:40:00 .GLOMERULAR FILTRATION RATE 2021-06-20 Adriazola, Xochitl Whaley nderson 18:40:00 CALCIUM LEVEL TOTAL 2021-06-20 Adriazola, Xochitl To 18:40:00 ALBUMIN LEVEL 2021-06-20 Adriazola, Xochitl To 18:40:00 ALKALINE PHOSPHATASE 2021-06-20 Adriazola, Xochitl To 18:40:00 ALANINE AMINOTRANSFERASE 2021-06-20 Adriazola, Xochitl Moya rson 18:40:00 ASPARTATE AMINOTRANSFERASE 2021-06-20 Adriazola, Xochitl Garza derson 18:40:00 TOTAL PROTEIN 2021-06-20 Adriazola, Xochitl To 18:40:00 FRACTIONATED BILIRUBIN 2021-06-20 Adriazola, Xochitl Hennessy on 18:40:00 POC GLUCOSE SCREEN 2021-06-03 Adriazola, Xochitl To 19:54:00 CT CHEST ABDOMEN PELVIS W 2021-06-03 Adriazola, Xochitl VILLEGAS And erson CONTRAST 19:45:21 NM BONE SCAN WHOLE BODY 2021-06-03 Adriazola, Xochitl V[place]AS Jose L son 17:37:00 URINALYSIS WITH MICROSCOPIC 2021-06-03 Adriazola, Xochitl Whaley nderson IF INDICATED 15:53:00 PROTEIN / CREATININE RATIO 2021-06-03 Adriazola, Xochitl chiangson URINE 15:53:00 URINALYSIS MICROSCOPIC 2021-06-03 Adriazola, Xochitl Hennessy on 15:53:00 COMPLETE BLOOD COUNT W/ 2021-06-03 Adriazola, Xochitl VILLE[place]AS Jose L son DIFFERENTIAL 15:43:00 COMPREHENSIVE METABOLIC PANEL 2021-06-03 Adriazola, Xochitl To 15:43:00 LACTATE DEHYDROGENASE 2021-06-03 Adriazola, Xochitl Hennessyo n 15:43:00 MAGNESIUM LEVEL 2021-06-03 Adriazola, Xochitl To 15:43:00 PHOSPHORUS LEVEL 2021-06-03 Adriazola, Xochitl To 15:43:00 FREE THYROXINE 2021-06-03 Adriazola, Xochitl To 15:43:00 THYROID STIMULATING HORMONE 2021-06-03 Adriazola, Xochitl Whaley nderson 15:43:00 C REACTIVE PROTEIN 2021-06-03 Adriazola, Xochitl To 15:43:00 SEDIMENTATION RATE 2021-06-03 Adriazola, Xochitl To NON-AUTOMATED 15:43:00 TYPE AND SCREEN 2021-06-03 Adriazola, Xochitl To 15:43:00 Results CBC 2021-06-03 Adriazola, Xochitl To 15:43:00 MANUAL DIFFERENTIAL 2021-06-03 Adriazola, Xochitl To 15:43:00 GLUCOSE LEVEL 2021-06-03 Adriazola, Xochitl To 15:43:00 BLOOD UREA NITROGEN 2021-06-03 Adriazola, Xochitl To 15:43:00 ELECTROLYTE PANEL 2021-06-03 Adriazola, Xochitl To 15:43:00 SERUM CREATININE 2021-06-03 Adriazola, Xochitl To 15:43:00 .GLOMERULAR FILTRATION RATE 2021-06-03 Adriazola, Xochitl Whaley nderson 15:43:00 CALCIUM LEVEL TOTAL 2021-06-03 Adriazola, Xochitl To 15:43:00 ALBUMIN LEVEL 2021-06-03 Adriazola, Xochitl To 15:43:00 ALKALINE PHOSPHATASE 2021-06-03 Adriazola, Xochitl To 15:43:00 ALANINE AMINOTRANSFERASE 2021-06-03 Adriazola, Xochitl Moya rson 15:43:00 ASPARTATE AMINOTRANSFERASE 2021-06-03 Adriazola, Xochitl Garza derson 15:43:00 TOTAL PROTEIN 2021-06-03 Adriazola, Xochitl oT 15:43:00 FRACTIONATED BILIRUBIN 2021-06-03 Adriazola, Xochitl Hennessy on 15:43:00 ABORH 2021-06-03 Adriazola, Xochitl To 15:43:00 ANTIBODY SCREEN 2021-06-03 Adriazola, Xochitl To 15:43:00 CLOT EXPIRATION DATE 2021-06-03 Adriazola, Xochitl To 15:43:00 TMP INTERPRETATION ANTIBODY 2021-06-03 Adriazola, Xochitl Whaley nderson SCREEN NEGATIVE 15:43:00 XR CHEST 1 V FOR PLACEMENT 2021-05-12 Clyde Kaplan [place] [facility] 14:05:53 TRANSFUSE RED BLOOD CELLS 2021-04-29 Adriazola, Xochitl Dominguezori al [place] 04:21:32 TRANSFUSE RED BLOOD CELLS 2021-04-29 Adriazola, Xochitl VILLEGAS And erson 01:40:00 COMPREHENSIVE METABOLIC PANEL 2021-04-28 Adriazola, Xochitl Wa morial Alexi 18:48:00 COMPLETE BLOOD COUNT W/ 2021-04-28 Adriazola, Xochitl [facility] [place] DIFFERENTIAL 18:48:00 LACTATE DEHYDROGENASE 2021-04-28 Adriazola, Xochitl [facility] H ermann 18:48:00 MAGNESIUM LEVEL 2021-04-28 Adriazola, Xochitl [facility] [place] 18:48:00 PHOSPHORUS LEVEL 2021-04-28 Adriazola, Xochitl [facility] Khang n 18:48:00 THYROID STIMULATING HORMONE 2021-04-28 Adriazola, Xochitl Shravan rial [place] 18:48:00 FREE THYROXINE 2021-04-28 [facility] Alexi 18:48:00 TYPE AND SCREEN 2021-04-28 Adriazola, Xochitl [facility] Alexi 18:48:00 PROTEIN / CREATININE RATIO 2021-04-28 Adriazola, Xochitl Dominguezor ial Alexi URINE 18:48:00 URINALYSIS MICROSCOPIC 2021-04-28 Adriazola, Xochitl [facility] [place] 18:48:00 TMP INTERPRETATION ANTIBODY 2021-04-28 Adriazola, Xochitl Shravan rial [place] SCREEN NEGATIVE 18:48:00 TMP CROSSMATCH INTERPRETATION 2021-04-28 Adriazola, Xochitl Baca morial Alexi 18:48:00 URINALYSIS WITH MICROSCOPIC 2021-04-28 Adriazola, Xochitl medranoon IF INDICATED 18:48:00 GLUCOSE LEVEL 2021-04-28 Adriazola, Xochitl To 18:48:00 BLOOD UREA NITROGEN 2021-04-28 Adriazola, Xochitl To 18:48:00 ELECTROLYTE PANEL 2021-04-28 Adriazola, Xochitl To 18:48:00 SERUM CREATININE 2021-04-28 Adriazola, Xochitl To 18:48:00 .GLOMERULAR FILTRATION RATE 2021-04-28 Adriazola, Xochitl Whaley nderson 18:48:00 CALCIUM LEVEL TOTAL 2021-04-28 Adriazola, Xochitl To 18:48:00 ALBUMIN LEVEL 2021-04-28 Adriazola, Xochitl To 18:48:00 ALKALINE PHOSPHATASE 2021-04-28 Adriazola, Xochitl To 18:48:00 ALANINE AMINOTRANSFERASE 2021-04-28 Adriazola, Xochitl Gonzaleze rson 18:48:00 ASPARTATE AMINOTRANSFERASE 2021-04-28 Adriazola, Xochitl Garza derson 18:48:00 TOTAL PROTEIN 2021-04-28 Adriazola, Xochitl To 18:48:00 FRACTIONATED BILIRUBIN 2021-04-28 Adriazola, Xochitl Hennessy on 18:48:00 Results CBC 2021-04-28 Adriazola, Xochitl To 18:48:00 MANUAL DIFFERENTIAL 2021-04-28 Adriazola, Xochitl To 18:48:00 ABORH 2021-04-28 Adriazola, Xochitl To 18:48:00 ANTIBODY SCREEN 2021-04-28 Adriazola, Xochitl To 18:48:00 CLOT EXPIRATION DATE 2021-04-28 Adriazola, Xochitl To 18:48:00 PREPARE RBC 2021-04-27 Xochitl Cee 15:39:00 PRBC PRODUCT READY FOR PICK 2021-04-27 Provider, Unknown [facility] Alexi UP 15:39:00 CT CHEST ABDOMEN PELVIS W 2021-03-23 Jaye, Xochitl VILLEGAS And erson CONTRAST 22:37:56 POC GLUCOSE SCREEN 2021-03-23 Adriazoljudd, Xochitl To 22:27:00 NM BONE SCAN WHOLE BODY 2021-03-23 Adriazola, Xochitl VILLEGAS Jose L son 19:54:00 COMPLETE BLOOD COUNT W/ 2021-03-23 Stephazoljudd, Xochitl VILLEGAS Jose L son DIFFERENTIAL 17:53:00 C REACTIVE PROTEIN 2021-03-23 Adriazola, Xochitl To 17:53:00 COMPREHENSIVE METABOLIC PANEL 2021-03-23 Adriazola, Xochitl To 17:53:00 LACTATE DEHYDROGENASE 2021-03-23 Adriazola, Xochitl VILLEGAS Anderso n 17:53:00 MAGNESIUM LEVEL 2021-03-23 Adriazola, Xochitl To 17:53:00 PHOSPHORUS LEVEL 2021-03-23 Adriazola, Xochitl To 17:53:00 SEDIMENTATION RATE 2021-03-23 Adriazola, Xochitl oT NON-AUTOMATED 17:53:00 THYROID STIMULATING HORMONE 2021-03-23 Adriazola, Xochitl Whaley nderson 17:53:00 FREE THYROXINE 2021-03-23 Adriazola, Xochitl To 17:53:00 URINALYSIS WITH MICROSCOPIC 2021-03-23 Adriazola, Xochitl Whaley nderson IF INDICATED 17:53:00 PROTEIN / CREATININE RATIO 2021-03-23 Adriazola, Xochitl Garza derson URINE 17:53:00 Results CBC 2021-03-23 Adriazola, Xochitl To 17:53:00 MANUAL DIFFERENTIAL 2021-03-23 Adriazola, Xochitl To 17:53:00 GLUCOSE LEVEL 2021-03-23 Adriazola, Xochitl To 17:53:00 BLOOD UREA NITROGEN 2021-03-23 Adriazola, Xochitl To 17:53:00 ELECTROLYTE PANEL 2021-03-23 Adriazola, Xochitl To 17:53:00 SERUM CREATININE 2021-03-23 Adriazola, Xochitl To 17:53:00 .GLOMERULAR FILTRATION RATE 2021-03-23 Adriazola, Xochitl Whaley nderson 17:53:00 CALCIUM LEVEL TOTAL 2021-03-23 Adriazola, Xochitl To 17:53:00 ALBUMIN LEVEL 2021-03-23 Adriazola, Xochitl To 17:53:00 ALKALINE PHOSPHATASE 2021-03-23 Adriazola, Xochitl To 17:53:00 ALANINE AMINOTRANSFERASE 2021-03-23 Adriazola, Xochitl Moya rson 17:53:00 ASPARTATE AMINOTRANSFERASE 2021-03-23 Adriazola, Xochitl Garza derson 17:53:00 TOTAL PROTEIN 2021-03-23 Adriazola, Xochitl To 17:53:00 FRACTIONATED BILIRUBIN 2021-03-23 Adriazola, Xochitl Hennessy on 17:53:00 URINALYSIS MICROSCOPIC 2021-03-23 Adriazola, Xochitl Hennessy on 17:53:00 PATHOLOGY BIOPSY 2021-03-16 Jovana Morris MD INTERPRETATION 21:08:00 XR FOOT 3+ VW LEFT 2021-03-16 Jovana Morris MD 19:52:20 WOUND CULTURE W/ GRAM STAIN 2021-03-16 Stephazoljudd, Xochitl Whaley nderson 18:40:00 COMPREHENSIVE METABOLIC PANEL 2021-02-09 Adriazoljudd, Xochitl johnjean marie Truong 15:21:00 COMPLETE BLOOD COUNT W/ 2021-02-09 Adriazola, Xochitl VILLEGAS Jose L son DIFFERENTIAL 15:21:00 LACTATE DEHYDROGENASE 2021-02-09 Adriazola, Xochitl Hennessyo n 15:21:00 MAGNESIUM LEVEL 2021-02-09 Adriazola, Xochitl To 15:21:00 PHOSPHORUS LEVEL 2021-02-09 Adriazola, Xochitl To 15:21:00 SEDIMENTATION RATE 2021-02-09 Adriazola, Xochitl To NON-AUTOMATED 15:21:00 THYROID STIMULATING HORMONE 2021-02-09 Adriazola, Xochitl Whaley nderson 15:21:00 C REACTIVE PROTEIN 2021-02-09 Adriazola, Xochitl To 15:21:00 FREE THYROXINE 2021-02-09 Adriazola, Xochitl To 15:21:00 Results CBC 2021-02-09 Adriazola, Xochitl To 15:21:00 MANUAL DIFFERENTIAL 2021-02-09 Adriazola, Xochitl To 15:21:00 GLUCOSE LEVEL 2021-02-09 Adriazola, Xochitl To 15:21:00 BLOOD UREA NITROGEN 2021-02-09 Adriazola, Xochitl To 15:21:00 ELECTROLYTE PANEL 2021-02-09 Adriazola, Xochitl To 15:21:00 SERUM CREATININE 2021-02-09 Adriazola, Xochitl To 15:21:00 .GLOMERULAR FILTRATION RATE 2021-02-09 Adriazoljudd, Xochitl Whaley nderson 15:21:00 CALCIUM LEVEL TOTAL 2021-02-09 Adriazola, Xochitl To 15:21:00 ALBUMIN LEVEL 2021-02-09 Adriazola, Xochitl To 15:21:00 ALKALINE PHOSPHATASE 2021-02-09 Adriazola, Xochitl To 15:21:00 ALANINE AMINOTRANSFERASE 2021-02-09 Adriazola, Xochitl Moya rson 15:21:00 ASPARTATE AMINOTRANSFERASE 2021-02-09 Adriazola, Xochitl Garza derson 15:21:00 TOTAL PROTEIN 2021-02-09 Xochitl Cee MD 15:21:00 FRACTIONATED BILIRUBIN 2021-02-09 Xochitl Cee MD on 15:21:00 URINALYSIS WITH MICROSCOPIC 2021-02-09 Xochitl Cee MD nderson IF INDICATED 15:16:00 PROTEIN / CREATININE RATIO 2021-02-09 Xochitl Cee MD derson URINE 15:16:00 URINALYSIS MICROSCOPIC 2021-02-09 Xochitl Cee MD on 15:16:00 COMPLETE BLOOD COUNT W/ 2021-02-02 Ole Jimenez MD Griffin rson DIFFERENTIAL 20:57:00 COMPREHENSIVE METABOLIC PANEL 2021-02-02 Ole Jimenez 20:57:00 PROTHROMBIN TIME 2021-02-02 Ole Jimenez MD 20:57:00 ALKALINE PHOSPHATASE 2021-02-02 Ole Jimenez MD Anderso n FRACTIONATED 20:57:00 Results CBC 2021-02-02 Ole Jimenez MD 20:57:00 MANUAL DIFFERENTIAL 2021-02-02 Ole Jimenez MD 20:57:00 GLUCOSE LEVEL 2021-02-02 Ole Jimenez MD 20:57:00 ELECTROLYTE PANEL 2021-02-02 Ole Jimenez MD 20:57:00 SERUM CREATININE 2021-02-02 Ole Jimenez MD 20:57:00 .GLOMERULAR FILTRATION RATE 2021-02-02 Ole Jimenez MD 20:57:00 CALCIUM LEVEL TOTAL 2021-02-02 Ole Jimenez MD 20:57:00 ALBUMIN LEVEL 2021-02-02 Ole Jimenez MD 20:57:00 ALKALINE PHOSPHATASE 2021-02-02 Ole Jimenez MD Anderso n 20:57:00 ALANINE AMINOTRANSFERASE 2021-02-02 Ole Jimenez MD And erson 20:57:00 ASPARTATE AMINOTRANSFERASE 2021-02-02 Ole Jimenez MD nderson 20:57:00 TOTAL PROTEIN 2021-02-02 Ole Jimenez MD 20:57:00 FRACTIONATED BILIRUBIN 2021-02-02 Ole Jimenez MD Jose L son 20:57:00 BLOOD UREA NITROGEN 2021-02-02 Ole Jimenez MD 20:57:00 NM BONE SCAN WHOLE BODY 2020-12-29 Adriazola, Xochitl VILLEGAS Jose L son 15:12:17 CT CHEST ABDOMEN PELVIS W 2020-12-29 Adriazola, Xochitl VILLEGAS And erson CONTRAST 14:07:47 COMPLETE BLOOD COUNT W/ 2020-12-29 Adriazola, Xochitl VILLEGAS Jose L son DIFFERENTIAL 12:11:00 COMPREHENSIVE METABOLIC PANEL 2020-12-29 Adriazola, Xochitl To 12:11:00 C REACTIVE PROTEIN 2020-12-29 Adriazola, Xochitl To 12:11:00 LACTATE DEHYDROGENASE 2020-12-29 Adriazola, Xochitl VILLEGAS Anderso n 12:11:00 MAGNESIUM LEVEL 2020-12-29 Adriazola, Xochitl To 12:11:00 PHOSPHORUS LEVEL 2020-12-29 Adriazola, Xochitl To 12:11:00 SEDIMENTATION RATE 2020-12-29 Adriazola, Xochitl To NON-AUTOMATED 12:11:00 THYROID STIMULATING HORMONE 2020-12-29 Adriazola, Xochitl Whaley nderson 12:11:00 FREE THYROXINE 2020-12-29 Adriazola, Xochitl To 12:11:00 URINALYSIS WITH MICROSCOPIC 2020-12-29 Adriazola, Xochitl Whaley nderson IF INDICATED 12:11:00 PROTEIN / CREATININE RATIO 2020-12-29 Adriazola, Xochitl Garza derson URINE 12:11:00 Results CBC 2020-12-29 Adriazola, Xochitl To 12:11:00 MANUAL DIFFERENTIAL 2020-12-29 Adriazola, Xochitl To 12:11:00 GLUCOSE LEVEL 2020-12-29 Adriazola, Xochitl To 12:11:00 BLOOD UREA NITROGEN 2020-12-29 Adriazola, Xochitl To 12:11:00 ELECTROLYTE PANEL 2020-12-29 Adriazola, Xochitl To 12:11:00 SERUM CREATININE 2020-12-29 Adriazola, Xochitl To 12:11:00 .GLOMERULAR FILTRATION RATE 2020-12-29 Adriazola, Xochitl Whaley nderson 12:11:00 CALCIUM LEVEL TOTAL 2020-12-29 Adriazola, Xochitl To 12:11:00 ALBUMIN LEVEL 2020-12-29 Adriazola, Xochitl To 12:11:00 ALKALINE PHOSPHATASE 2020-12-29 Adriazola, Xochitl To 12:11:00 ALANINE AMINOTRANSFERASE 2020-12-29 Adriazola, Xochitl VILLEGAS Griffin rson 12:11:00 ASPARTATE AMINOTRANSFERASE 2020-12-29 Adriazola, Xochitl Garza derson 12:11:00 TOTAL PROTEIN 2020-12-29 Adriazoljudd, Xochitl To 12:11:00 FRACTIONATED BILIRUBIN 2020-12-29 Adriazola, Xochitl Hennessy on 12:11:00 URINALYSIS MICROSCOPIC 2020-12-29 Adriazola, Xochitl Hennessy on 12:11:00 HEPATIC FUNCTION PANEL 2020-12-05 Pauline Saldaña [facility] 12:43:00 COMPREHENSIVE METABOLIC PANEL 2020-12-05 Pauline Saldaña [facility] 12:43:00 PROTHROMBIN TIME 2020-12-05 Pauline Saldaña MD 12:43:00 IMMUNOGLOBULIN G [...] [U] XRAY TIBIA FIBULA 2 VWS 2020-11-16 [facility] RIGHT [id number] 00:00:00 Physicians COMPLETE BLOOD COUNT W/ 2020-11-11 Jose Alfredo Crawford MD Jose L son DIFFERENTIAL 13:03:00 COMPREHENSIVE METABOLIC PANEL 2020-11-11 Jose Alfredo Crawford MD 13:03:00 LACTATE DEHYDROGENASE 2020-11-11 Jose Alfredo Crawford MD Anderso n 13:03:00 PHOSPHORUS LEVEL 2020-11-11 Jose Alfredo [...] 2020-11-11 Jose Alfredo Crawford MD derson 13:03:00 TOTAL PROTEIN 2020-11-11 Jose Alfredo Crawford MD 13:03:00 FRACTIONATED BILIRUBIN 2020-11-11 Jose Alfredo Crawford MD Gerhard on 13:03:00 URINALYSIS MICROSCOPIC 2020-11-11 Jose Alfredo Crawford MD Gerhard on 13:03:00 MR Tib Fib w/wo contrast 2020-10-20 [facility] [id number] 00:00:00 Physicians [U] XRAY FEMUR 2 VWS RIGHT 2020-10-06 [facility] [id number] 00:00:00 Physicians [U] XRAY TIBIA FIBULA 2 VWS 2020-10-06 [facility] RIGHT [id number] 00:00:00 Physicians MR Knee w/wo contrast [id number] 2020-10-06 [facility] 00:00:00 Physicians MR Femur w/wo contrast [id number] 2020-10-06 [facility] 00:00:[address] CHEST ABDOMEN PELVIS W 2020-09-29 Jose Alfredo Crawford MD And erson CONTRAST 22:31:39 NM BONE SCAN WHOLE BODY 2020-09-29 Jose Alfredo Crawford MD Jose L son 20:30:17 XR FOOT 3+ VW LEFT 2020-09-29 Jovana Morris deysi 19:21:36 ELECTROLYTE PANEL 2020-09-29 Evette Gomeza nn 18:35:00 CALCIUM LEVEL TOTAL 2020-09-29 Evette Gomez [facility] sullivan 18:35:00 URIC ACID 2020-09-29 Evette Gomezann 18:35:00 BLOOD UREA NITROGEN 2020-09-29 Evette Gomez MD 18:35:00 GLUCOSE, RANDOM 2020-09-29 Evette Gomez MD 18:35:00 SERUM CREATININE 2020-09-29 Evette Gomez MD 18:35:00 PHOSPHORUS LEVEL 2020-09-29 Evette Gomez MD 18:35:00 MAGNESIUM LEVEL 2020-09-29 Evette Gomez MD 18:35:00 COMPLETE BLOOD [...] 18:35:00 COMPREHENSIVE METABOLIC PANEL 2020-09-23 Xochitl Cee 21:46:00 GLUCOSE LEVEL 2020-09-23 Xochitl Cee MD 21:46:00 BLOOD UREA NITROGEN 2020-09-23 Xochitl Cee MD 21:46:00 ELECTROLYTE PANEL 2020-09-23 Adriazoljudd, Xochitl To 21:46:00 SERUM CREATININE 2020-09-23 Stephazoljudd, Xochitl To 21:46:00 .GLOMERULAR FILTRATION RATE 2020-09-23 Jaye, Xochitl Whaley nderson 21:46:00 CALCIUM LEVEL TOTAL 2020-09-23 Adriazoljudd, Xochitl To 21:46:00 ALBUMIN LEVEL 2020-09-23 Stephazoljudd, Xochitl To 21:46:00 ALKALINE PHOSPHATASE 2020-09-23 Stephazoljudd, Xcohitl To 21:46:00 ALANINE AMINOTRANSFERASE 2020-09-23 Stephazoljudd, Xochitl VILLEGAS Griffin rson 21:46:00 ASPARTATE AMINOTRANSFERASE 2020-09-23 Stephazoljudd, Xochitl Garza derson 21:46:00 TOTAL PROTEIN 2020-09-23 Adriazoljudd, Xochitl To 21:46:00 FRACTIONATED BILIRUBIN 2020-09-23 Jaye, Xochitl VILLEGAS Gerhard on 21:46:00 [Q] CULTURE, FUNGUS W/SMEAR 2020-09-10 [facility] NOT HAIR, SKIN, BLOOD 00:00:00 Physicians [Q] CULTURE, MYCOBACTERIA 2020-09-10 [facility] W/FLUOROCHROME SMEAR 00:00:00 Physicians [QL] CULTURE, AEROBIC AND 2020-09-10 [facility] ANAEROBIC W/GRAM STAIN 00:00:00 Physician s WOUND CULTURE W/ GRAM STAIN 2020-09-08 Jovana Morris riajohanne SchulteAlexi 21:57:00 IR US NON-TARGET LIVER BIOPSY 2020-09-06 [facility] 18:45:38 PATHOLOGY BIOPSY 2020-09-06 Ole Jimenez Lelia nn INTERPRETATION 17:42:00 POC GLUCOSE SCREEN 2020-09-06 Ole Jimenez [facility] 17:37:00 2019-NCOV COVID-19 2020-09-03 Morro Murphy [facility] ermann 15:22:00 CARBON DIOXIDE LEVEL 2020-09-03 [facility] CHLORIDE LEVEL 2020-09-03 Katerina Hoyt [facility] 15:06:00 SODIUM LEVEL 2020-09-03 Saritha, Katerina Whaley [facility] Alexi 15:06:00 SERUM CREATININE 2020-09-03 Hoyt, Katerina Whaley [facility] Khang n 15:06:00 BLOOD UREA NITROGEN 2020-09-03 Hoyt, Katerina Whaley [facility] Her sullivan 15:06:00 GLUCOSE, RANDOM 2020-09-03 Hoyt, Katerina Whaley [facility] [place] 15:06:00 TYPE AND SCREEN 2020-09-03 Hoyt, Katerina Whaley [facility] [place] 15:06:00 ABORH 2020-09-03 Hoyt, Katerina Whaley [facility] [place] 15:06:00 ANTIBODY SCREEN 2020-09-03 Hoyt, Katerina Whaley [facility] Alexi 15:06:00 ANION GAP 2020-09-03 Hoyt, Katerina Whaley [facility] Alexi 15:06:00 CLOT EXPIRATION DATE 2020-09-03 Hoyt, Katerina Whaley [facility] He rmann 15:06:00 TMP INTERPRETATION ANTIBODY 2020-09-03 Hoyt, Katerina Whaley Shravan rial [place] SCREEN NEGATIVE 15:06:00 POTASSIUM LEVEL 2020-09-03 Hoyt, Katerina Whaley [facility] [place] 15:06:00 SERUM CREATININE 2020-09-03 Hoyt, Katerina Whaley MD To 15:06:00 .GLOMERULAR FILTRATION RATE 2020-09-03 Hoyt, Katerina patel 15:06:00 COMPLETE BLOOD COUNT W/ 2020-08-26 Xochitl Cee MD Jose L son DIFFERENTIAL 15:09:00 COMPREHENSIVE METABOLIC PANEL 2020-08-26 Xochitl Cee MD 15:09:00 LACTATE DEHYDROGENASE 2020-08-26 StephazolXochitl whaley MD Andmaximo n 15:09:00 MAGNESIUM LEVEL 2020-08-26 AdriazolXochitl whaley MD 15:09:00 PHOSPHORUS LEVEL 2020-08-26 StephazolXochitl whaley MD 15:09:00 FREE THYROXINE 2020-08-26 StephazolXochitl whaley MD 15:09:00 THYROID STIMULATING HORMONE 2020-08-26 StephazolXochitl whaley MD 15:09:00 C REACTIVE PROTEIN 2020-08-26 StephazolXochitl whaley MD 15:09:00 SEDIMENTATION RATE 2020-08-26 Xochitl Cee MD NON-AUTOMATED 15:09:00 URINALYSIS WITH MICROSCOPIC 2020-08-26 Adriazola, Xochitl MD A nderson IF INDICATED 15:09:00 PROTEIN / CREATININE RATIO 2020-08-26 Adriazola, Xochitl Garza derson URINE 15:09:00 Results CBC 2020-08-26 Adriazoljudd, Xochitl To 15:09:00 MANUAL DIFFERENTIAL 2020-08-26 Stephazoljudd, Xochitl To 15:09:00 GLUCOSE LEVEL 2020-08-26 Adriazola, Xochitl To 15:09:00 BLOOD UREA NITROGEN 2020-08-26 Adriazola, Xochitl To 15:09:00 ELECTROLYTE PANEL 2020-08-26 Adriazola, Xochitl To 15:09:00 SERUM CREATININE 2020-08-26 Adriazola, Xochitl To 15:09:00 .GLOMERULAR FILTRATION RATE 2020-08-26 Stephazoljudd, Xochitl Whaley nderson 15:09:00 CALCIUM LEVEL TOTAL 2020-08-26 Adriazola, Xochitl To 15:09:00 ALBUMIN LEVEL 2020-08-26 Adriazola, Xochitl To 15:09:00 ALKALINE PHOSPHATASE 2020-08-26 Adriazola, Xochitl To 15:09:00 ALANINE AMINOTRANSFERASE 2020-08-26 Adriazola, Xochitl Gonzaleze rson 15:09:00 ASPARTATE AMINOTRANSFERASE 2020-08-26 Adriazola, Xochitl Garza derson 15:09:00 TOTAL PROTEIN 2020-08-26 Adriazola, Xochitl To 15:09:00 FRACTIONATED BILIRUBIN 2020-08-26 Adriazola, Xochitl Hennessy on 15:09:00 URINALYSIS MICROSCOPIC 2020-08-26 Adriazola, Xochitl Hennessy on 15:09:00 CMV QUANT, PLASMA 2020-08-06 Ole Jimenez 14:03:00 ALKALINE PHOSPHATASE 2020-08-06 Ole Jimenez H ermann FRACTIONATED 14:03:00 PROTHROMBIN TIME 2020-08-06 Ole Jimenez nn 14:03:00 IMMUNOGLOBULIN A SERUM 2020-08-06 Ole Jimenez 14:03:00 IRON LEVEL 2020-08-06 Ole Jimenez n 14:03:00 TRANSFERRIN 2020-08-06 Ole Jimenez n 14:03:00 ALPHA 1 ANTRITRYPSIN, SERUM 2020-08-[address] [facility] orial Alexi 14:03:00 HEPATITIS A IGM ANTIBODY 2020-08-06 Ole Jimenez al [place] SERUM 14:03:00 OP PATRICE REF 2020-08-06 [facility] 14:03:00 HEPATITIS A ANTIBODY IGG 2020-08-06 Ole Jimenez al [place] 14:03:00 HP MOLECULAR BLOOD COLLECTION 2020-08-06 [facility] [place] 14:03:00 THIOPURINE METHYLTRANSFERASE 2020-08-06 Ole Jimenez Wa morial Alexi 14:03:00 HC REF HEPATITIS E VIRUS BY 2020-08-06 Ole Jimenez [facility] Alexi QUANTITATIVE PCR 14:03:00 HP ALYSSA-LESTER VIRUS 2020-08-06 Ole Jimenez Alexi QUANTITATIVE PCR ANALYSIS 14:03:00 INTERPRETATION AND REPORT COMPREHENSIVE METABOLIC PANEL 2020-07-29 Xochitl Cee Me morial Alexi 19:01:00 C REACTIVE PROTEIN 2020-07-29 [facility] Cee [facility] deysi 19:01:00 EKG, 12-LEAD (SCHEDULED) 2020-07-29 Xochitl Cee [facility] Alexi 00:00:00 HEPATITIS C VIRUS ANTIBODY 2020-06-28 Jose Alfredo Crawford ial Alexi 16:30:00 HEPATITIS B SURFACE ANTIGEN, 2020-06-28 Jose Alfredo Crawford [facility] [place] SERUM 16:30:00 HEPATITIS B SURFACE ANTIBODY, 2020-06-28 Jose Alfredo Crawford Wa morial [place] SERUM 16:30:00 HEPATITIS B CORE ANTIBODY 2020-06-28 Jose Alfredo Crawford al [place] 16:30:00 HC REF HEPATITIS BC AB, IGG & 2020-06-28 Jose Alfredo Crawford morial Alexi IGM 16:30:00 HEPATITIS B SURFACE AG 2020-06-28 Jose Alfredo Crawford [place] W/CONFIRM 16:30:00 HEPATITIS C VIRUS AB SCREEN 2020-06-28 Jose Alfredo Crawford Memo rial [place] W/REFLEX HCV PCR 16:30:00 US LIVER 2020-06-25 Jose Alfredo Crawford Alexi 20:41:25 CT CHEST ABDOMEN PELVIS W 2020-06-25 Xochitl Cee al Alexi CONTRAST 19:43:00 NM BONE SCAN WHOLE BODY 2020-06-25 Adriazola, [facility]itl [facility] 16:51:07 PROTEIN / CREATININE RATIO 2020-06-25 Adriazola, Xochitl [facility] [place] URINE 14:52:00 XR CHEST 2 VW 2020-06-18 Yvette [facility] Y [facility] 16:25:16 URINE CULTURE 2020-06-18 Yvette, [facility] 15:49:00 AMYLASE LEVEL 2020-06-18 Yvette, [facility] Y [facility] [place] 15:49:00 LIPASE LEVEL 2020-06-18 Yvette, [facility] Y [facility] 15:49:00 ADRENOCORTICOTROPIC HORMONE 2020-06-18 Yvette, Amishi Y Shravan rial Alexi 15:49:00 CORTISOL 2020-06-18 Yvette, [facility] [place] 15:49:00 INSULIN LEVEL 2020-06-18 Yvette, [facility] [place] 15:49:00 C-PEPTIDE 2020-06-18 Yvette, [facility] 15:49:00 [id number] ANTIBODY ASSAY SERUM 2020-06-18 [facility] [place] 15:49:00 INSULIN ANTIBODY, SERUM 2020-06-18 Yvette, [facility] 15:49:00 ISLET ANTIGEN 2 (IA-2) 2020-06-18 Yvette, [facility] [place] ANTIBODY 15:49:00 ANTINUCLEAR ANTIBODY HEP-2 2020-06-18 Yvette [facility] [place] SUBSTRATE IGG 15:49:00 SMOOTH MUSCLE ANTIBODY SCREEN 2020-06-18 Yvette [facility] 15:49:00 ANCA PANEL FOR VASCULITIS, 2020-06-18 [facility] [place] SERUM 15:49:00 DNA ANTIBODY 2020-06-18 Yvette, [facility] (DOUBLE-STRANDED) IGG 15:49:00 LIVER CYTOSOL AUTOANTIBODIES 2020-06-[address] [facility] 15:49:00 GAMMA GLUTAMYL TRANSFERASE 2020-06-18 [facility] 15:[facility]:00 FERRITIN LVL 2020-06-18 Yvette, [facility] [place] 15:49:00 CREATINE KINASE 2020-06-18 Yvette, [facility] 15:49:00 URINALYSIS WITH MICROSCOPIC 2020-06-18 Le Crawfordshi Y [facility] [place] IF INDICATED 15:49:00 PROTEIN / CREATININE RATIO 2020-06-18 Jose [facility] URINE 15:49:00 CYTOKINE PANEL 3 2020-06-18 Jose [facility] 15:49:00 SEDIMENTATION RATE 2020-06-18 [facility] NON-AUTOMATED 15:49:00 CYTOKINE PANEL 3 FINAL REPORT 2020-06-18 Jose Alfredo [facility] [place] 15:49:00 URINALYSIS MICROSCOPIC 2020-06-18 Le [facility] [place] 15:49:00 ORELLANA MISCELLANEOUS TEST 2020-06-18 Jose Alfredo [facility] [place] 15:49:00 THYROID STIMULATING HORMONE 2020-06-18 Jose Alfredo [facility] 15:49:00 FREE THYROXINE 2020-06-18 Jose Alfredo [facility] [place] 15:49:00 COMPLETE BLOOD COUNT W/ 2020-06-17 Adriazola, [facility] DIFFERENTIAL 13:29:00 COMPREHENSIVE METABOLIC PANEL 2020-06-17 Adriazola, [facility] [place] 13:29:00 COMPREHENSIVE METABOLIC PANEL 2020-06-10 Adriazola, [facility] 13:25:00 MAGNESIUM LEVEL 2020-06-10 Adriazola, [facility] [place] 13:25:00 PHOSPHORUS LEVEL 2020-06-10 Adriazola, [facility] 13:25:00 COMPLETE BLOOD COUNT W/ 2020-06-10 Adriazola, [facility] [place] DIFFERENTIAL 13:25:00 LACTATE DEHYDROGENASE 2020-06-10 Adriazola, [facility] 13:25:00 Results CBC 2020-06-10 Adriazola, [facility] 13:25:00 MANUAL DIFFERENTIAL 2020-06-10 Adriazola, [facility] 13:25:00 GLUCOSE LEVEL 2020-06-10 Adriazola, [facility] [place] 13:25:00 BLOOD UREA NITROGEN 2020-06-10 Adriazola, [facility] 13:25:00 ELECTROLYTE PANEL 2020-06-10 Adriazola, [facility] 13:25:00 SERUM CREATININE 2020-06-10 Adriazola, [facility] 13:25:00 .GLOMERULAR FILTRATION RATE 2020-06-10 Adriazola, [facility] 13:25:00 CALCIUM LEVEL TOTAL 2020-06-10 Adriazola, [facility] 13:25:00 ALBUMIN LEVEL 2020-06-10 Adriazola, [facility] 13:25:00 ALKALINE PHOSPHATASE 2020-06-10 Adriazola, [facility] 13:25:00 ALANINE AMINOTRANSFERASE 2020-06-10 Adriazola, [facility] [place] 13:25:00 ASPARTATE AMINOTRANSFERASE 2020-06-10 Adriazola, [facility] 13:25:00 TOTAL PROTEIN 2020-06-10 Adriazola, [facility] 13:25:00 FRACTIONATED BILIRUBIN 2020-06-10 Adriazola, [facility] 13:25:00 THYROID STIMULATING HORMONE 2020-05-27 Memo, Naida [facility] [place] 14:04:00 Chase FREE THYROXINE 2020-05-27 Memo, [facility] [place] 14:04:00 Chase LACTATE DEHYDROGENASE 2020-05-27 Memo, [facility] ermann 14:04:00 [place] POTASSIUM LEVEL 2020-04-30 Adriazola, Xochitl [facility] Alexi 20:04:00 COMPLETE BLOOD COUNT W/ 2020-04-28 Memo, Naida [facility] [place] DIFFERENTIAL 20:25:00 Stone COMPREHENSIVE METABOLIC PANEL 2020-04-28 Memo, Naida Wa morial Alexi 20:25:00 Stone Results CBC 2020-04-28 Le Crawfordshi Y [facility] Alexi 20:25:00 MANUAL DIFFERENTIAL 2020-04-28 Jose Alfredo Crawford Y [facility] Her sullivan 20:25:00 GLUCOSE LEVEL 2020-04-28 Le Crawfordshi Y [facility] [place] 20:25:00 ELECTROLYTE PANEL 2020-04-28 Yvette Amishi Y [facility] Lelia nn 20:25:00 SERUM CREATININE 2020-04-28 Le Crawfordshedinson Miguel [facility] Khang n 20:25:00 .GLOMERULAR FILTRATION RATE 2020-04-28 Jose Alfredo Crawford Shravan rial Alexi 20:25:00 CALCIUM LEVEL TOTAL 2020-04-28 Le Crawfordshedinson Y [facility] Her sullivan 20:25:00 ALBUMIN LEVEL 2020-04-28 Le Crawfordshedinson Y [facility] [place] 20:25:00 ALKALINE PHOSPHATASE 2020-04-28 Jose Alfredo Crawford [facility] He rmann 20:25:00 ALANINE AMINOTRANSFERASE 2020-04-28 Yvette Jose Alfredo [facility] [place] 20:25:00 ASPARTATE AMINOTRANSFERASE 2020-04-[address] [facility] [place] 20:25:00 TOTAL PROTEIN 2020-04-28 Yvette Jose Alfredo Miguel [facility] Alexi 20:25:00 FRACTIONATED BILIRUBIN 2020-04-28 Yvette Jose Alfredo Miguel [facility] Alexi 20:25:00 BLOOD UREA NITROGEN 2020-04-28 Jose Alfredo Crawford [facility] sullivan 20:25:00 [U] XRAY FEMUR 2 VWS RIGHT 2020-01-12 [facility] [address]00 Physicians [QL] CBC (INCLUDES DIFF/PLT) 2019-12-15 [facility] 00:00:00 Physicians [QL] SED RATE BY MODIFIED 2019-12-15 [facility] [place] 00:00:00 Physicians [QL] C-REACTIVE PROTEIN 2019-12-15 [facility] 00:00:00 Physicians [U] XRAY FEMUR 2 VWS RIGHT 2019-07-17 [facility] [address] 00:00:00 Physicians Post Op Promis 29 Survey 2019-06-20 [facility] 00:00:00 Physicians Post Op Promis 29 Survey 2019-01-29 [facility] 00:00:00 Physicians Post Op Promis 29 Survey 2019-01-01 [facility] 00:00:00 Physicians [U] XRAY FEMUR 2 VWS RIGHT 2019-01-01 [facility] [address]23 00:00:00 Physicians [U] XRAY FEMUR 2 VWS RIGHT 2018-12-26 [facility] [address] 00:00:00 Physicians [QLH] CBC (INCLUDES DIFF/PLT) 2018-12-04 [facility] Physicians CPL - CRP High Sensitivity 2018-12-04 [facility] 00:00:00 Physicians CPL - Sedimentation Rate 2018-12-04 [facility] (ESR) 00:00:00 Physicians [U] XRAY FEMUR 2 VWS RIGHT 2018-12-03 [facility] [address] 00:00:00 Physicians Post Op Promis 29 Survey 2018-11-14 [facility] 00:00:00 Physicians [U] XRAY FEMUR 2 VWS RIGHT 2018-09-23 [facility] [address] 00:00:[address] Femur with contrast 21796 2018-09-13 [facility] 00:00:[address] Femur w and wo contrast 2018-09-06 [facility] [address] 00:00:00 Physicians [U] XRAY FEMUR 2 VWS RIGHT 2018-05-09 [facility] 60070 00:00:00 Physicians [U] XRAY FEMUR 2 VWS RIGHT 2018-03-28 [facility] 57478 00:00:00 Physicians [U] XRAY FEMUR 2 VWS RIGHT 2017-12-18 [facility] [address]88 00:00:00 Physicians Plan of Care Planned Planned Date Details Comments Source Activity Future 2021-01-02 COVID-19 Vaccination (3 - Pfizer MD To Scheduled Test 00:00:00 risk 4-dose series) [code = COVID-19 Vaccination (3 - Pfizer risk 4-dose series)] Diagnostic Test 2019-07-30 [U] XRAY FEMUR 2 VWS RIGHT 42916 [facility] 00:00:00 [code = 12832] [facility] Diagnostic Test 2019-07-30 [U] XRAY FEMUR 2 VWS RIGHT 23399 [facility] 00:00:00 [code = 33553] [facility] Diagnostic Test 2019-07-30 [U] XRAY FEMUR 2 VWS RIGHT 08109 [facility] 00:00:00 [code = 19079] [facility] Diagnostic Test 2019-07-30 [U] XRAY FEMUR 2 VWS RIGHT 20061 [facility] 00:00:00 [code = 54286] [facility] Future Upcoming [facility] Scheduled Test EncountersDateTypeSpecialtyCare [place] AmjkSzsvqjnozvj63/17/2021ppointOle Ramirez MD[address] [place], [place] [phone] (Fax)05/13/2021TelemedicineGastroen terology, Hepatology and NutritionMiller, Ole D., SL[address] [place] [address] [phone] (Fax)Health MaintenanceDue DateLast DoneCommentsCOVID-19 StpmkaqidvwBvoijqzze47/11/2021, 11/14/2020 [code = Upcoming EncountersDateTypeSpecialtyCare AyylThprbsvqexx72/17/2021Ole Gutierrez, PB[address] [place] [address] [phone] (Fax)05/13/2021TelemedicineAkstroen terology, Hepatology and NutritionMillOle manzano, FP[address] [place] [address] [phone] (Fax)Health MaintenanceDue DateLast DoneCommentsCOVID-19 OjqsdhwxjatAuxjuyizu47/11/2021, 11/14/2020] Future Upcoming [facility] Scheduled Test EncountersDateTypeSpecialtyCare Alexi HubvPupaefitbcn56/17/2021Ole Gutierrez, SY[address] [place] [address] [phone] (Fax)05/13/2021TelemedicineAkstroen terology, Hepatology and NutritionMillOle manzano MD[address] [place] [address] [phone] (Fax)Health MaintenanceDue DateLast DoneCommentsCOVID-19 UngewocbmmcIzewadcam40/11/2021, 11/14/2020 [code = Upcoming EncountersDateTypeSpecialtyCare AlodPltrcyxhnyl73/17/2021Ole Gutierrez, [id number] [place] [address] [phone] (Fax)05/13/2021TemoisésmedicineAkstroen terology, Hepatology and NutritionMiOle barnes, BS[address] [place] [address] [phone] (Fax)Health MaintenanceDue DateLast DoneCommentsCOVID-19 GlxujsqlnsxWnobewdtc61/11/2021, 11/14/2020] Future COVID-19 Vaccination (3 - Pfizer [facility] Scheduled Test risk 3-dose series) [code = Alexi COVID-19 Vaccination (3 - Pfizer risk 3-dose series)] Encounters Start End Encounter Admission Attending Care Care Encounter Source Date/Time Date/Time Type Type Clinicians Facility Department ID 2021-07-27 Outpatient KIMBERLY, [facility] [id number] [place] 15:54:18 [facility] 2021-06-29 [facility] [id number] [place] 09:56:26 [facility] 2021-02-11 [facility] [id number] [place] 01:03:36 [facility] 2021-01-05 [facility] [id number] [place] 09:22:58 [facility] 2020-07-07 Outpatient [facility] KUSHLA [id number] 12:25:20 PROVIDER Gerhard mynor 2020-05-18 Outpatient [facility], KUSHAL FATIMA [id number] 16:51:23 PROVIDER Gerhardmaxim lowe 2020-04-01 Outpatient KUSHAL FATIMA [id number] 17:51:34 Andmaxim mynor 2020-03-31 Outpatient KUSHAL FATIMA [id number] 09:40:27 Androb lowe 2020-02-20 [facility] [id number] 12:50:17 ZAID lowe 2020-02-20 [facility] [id number] 12:50:17 ZAID lowe 2019-05-21 Outpatient [facility] 7511 09:56:44 [facility] 2021-06-29 2021-06-29 Office SANDRINE Garza [facility] 1.2.840.114 [id number] [facility] [place] 08:35:33 09:56:44 Visit Victoriano ORTHO AND 350.1.13.58 Health SPINE 9.2.7.2.686 MEDICAL [id number] [place] 2 2021-06-21 2021-06-21 Outpatient MONTSERRAT GIRON MDA MDA [id number] 09:02:42 09:57:39 Gerhard o mynor 2021-06-20 2021-06-20 Outpatient EL MDA MDA [id number] 12:45:00 23:59:00 Gerhard o mynor 2021-06-20 2021-06-20 Outpatient MELISSA CRAWFORD MDA MDA [id number] 14:20:46 16:17:27 JOSE ALFREDO Oweners o n 2021-06-08 2021-06-08 Office SANDRINE Garcia [facility] 1.2.840.114 [id number] [place] 09:20:43 10:33:46 Visit Rock DOWD AND 350.1.13.58 Health SPINE 9.2.7.2.686 MEDICAL [id number] ORALIAZA 2 2021-06-06 2021-06-06 Outpatient MELISSA CRAWFORD MDA MDA [id number] 10:51:14 12:30:23 LEEdinson OwenGerhard o n 2021-06-03 2021-06-03 Outpatient MELISSA CHOIAZOLJudd, MDA MDA [id number] 12:53:39 23:59:00 XOCHITL Gerhard o n 2021-06-03 2021-06-03 Outpatient MELISSA CHOIAZOLJudd, MDA MDA [id number] 10:22:25 12:52:00 XOCHITL Gerhard o n 2021-06-03 2021-06-03 Outpatient MELISSA ADRIAZOLJudd, MDA MDA [id number] 11:03:11 11:03:11 XOCHITL Gerhard o n 2021-06-03 2021-06-03 Outpatient MELISSA CHOIAZOLJudd, MDA MDA [id number] 10:00:00 10:00:00 XOCHITL Gerhard o n 2021-06-01 2021-06-01 Orders nullFlavo Genitourina [id number] [id number] Memoria 00:00:00 00:00:00 Only r ry Cancer l [facility] 2021-05-31 2021-05-31 Refill nullFlavo Genitourina 1084 [id number] Memoria 00:00:00 00:00:00 r ry Cancer l [facility] 2021-05-30 2021-05-30 EXT [facility] STEVE Lynn MSRDP 1.2.840.114 1 [id number] [place] 00:00:00 00:00:00 Prathap J LOCATION 350.1.13.58 Health 9.2.7.2.686 [id number] 2021-05-25 2021-05-25 EXT MHH IP Eusebio, EXT MSRDP 1.2.840.114 1 [id number] [place] 00:00:00 00:00:00 Prathap J LOCATION 350.1.13.58 Health 9.2.7.2.686 [id number] 2021-05-12 2021-05-12 EXT MHH IP Eusebio, EXT MSRDP 1.2.840.114 1 [id number] [place] 00:00:00 00:00:00 Clyde LOCATION 350.1.13.58 H ealth 9.2.7.2.686 [id number] 2021-05-12 2021-05-12 EXT MHH OP EXT MSRDP 1.2.840.114 1 [id number] [place] 00:00:00 00:00:00 LOCATION 350.1.13.58 H ealth 9.2.7.2.686 [id number] 2021-05-12 2021-05-12 EXT MHH OP EXT MSRDP 1.2.840.114 1 [id number] [place] 00:00:00 00:00:00 LOCATION 350.1.13.58 H ealth 9.2.7.2.686 [id number] 2021-05-11 2021-05-11 Documentat nullFlavo Gastrointes 1 [id number] Memoria 00:00:00 00:00:00 martin Truong 2021-05-09 2021-05-09 EXT [facility] OP GREG, EXT MSRDP 1.2.840.114 1 [id number] [place] 07:49:24 12:19:24 VICTORIANO LOCATION 350.1.13.58 H ealth 9.2.7.2.686 [id number] 2021-05-09 2021-05-09 [facility] 7517 [facility] 17:29:00 06:11:00 CLYDE 2021-05-09 2021-05-09 EXT MHH IP System, EXT MSRDP 1.2.840.114 1 [id number] [place] 00:00:00 00:00:00 Provider LOCATION 350.1.13.58 Health Not In 9.2.7.2.686 [id number] 2021-05-09 2021-05-09 EXT [facility] IP Angulo, Wendy EXT MSRDP 1.2.840.11 4 [id number] [place] 00:00:00 00:00:00 LOCATION 350.1.13.58 H ealth 9.2.7.2.686 [id number] 2021-04-28 2021-04-29 Hospital nullFlavo Ambulatory [id number] Memoria 22:59:06 04:59:00 Encounter r Treatment l [facility] 2021-04-29 2021-04-29 Documentat nullFlavo Rehabilitat 1 [id number] Memoria 00:00:00 00:00:00 ion r ion l [facility] 2021-04-28 2021-04-28 Outpatient MELISSA CEE MDA MDA [id number] 17:59:06 23:59:00 XOCHITL Hennessy o mynor 2021-04-28 2021-04-28 Hospital nullFlavo Diagnostic 1083 [id number] Memoria 18:30:00 22:58:00 Encounter r Laboratory l [facility] 2021-04-28 2021-04-28 Office nullFlavo Genitourina 1083 [id number] Memoria 18:55:15 21:58:06 Visit r ry Cancer l [facility] 2021-04-28 2021-04-28 Outpatient MELISSA CEE MDA MDA [id number] 13:30:00 17:58:00 XOCHITL Hennessy o mynor 2021-04-28 2021-04-28 Outpatient MELISSA CRAWFORD MDA MDA [id number] 13:55:15 16:58:06 JOSE ALFREDO lowe 2021-04-28 2021-04-28 Orders nullFlavo Neuroradiol 1083 [id number] Memoria 00:00:00 00:00:00 Only r paige [facility] 2021-04-28 2021-04-28 Travel [facility] [id number] Memoria 00:00:00 00:00:00 l [place] 2021-04-27 2021-04-27 Orders nullFlavo Genitourina 1083 [id number] Memoria 00:00:00 00:00:00 Only r ry Cancer l [facility] 2021-04-22 2021-04-[address] [facility] 10:45:00 15:39:00 JOVANA 2021-04-21 2021-04-21 Refill Spiritism, [facility] 1.2.840.114 [id number] 00:00:00 00:00:00 Rock ORTHO AND 350.1.13.58 SPINE 9.2.7.2.[id number] 2021-04-21 2021-04-21 Refill Spiritism, [facility] 1.2.840.114 [id number] [place] 00:00:00 00:00:00 Rock ORTHO AND 350.1.13.58 Health SPINE 9.2.7.2.686 MEDICAL [id number] PLAZA 2 2021-04-20 2021-04-20 Office Spiritism, [facility] 1.2.840.114 [id number] 08:11:16 08:41:16 Visit Rock ORTHO AND 350.1.13.58 SPINE 9.2.7.2.686 MEDICAL [id number] PLAZA 2 2021-04-20 2021-04-20 Office Spiritism, [facility] 1.2.840.114 [id number] [place] 08:11:16 08:41:16 Visit Rock ORTHO AND 350.1.13.58 Health SPINE 9.2.7.2.686 MEDICAL [id number] PLAZA 2 2021-04-18 2021-04-18 Telephone nullFlavo Genitourina 10 [id number] Memoria 00:00:00 00:00:00 r ry Cancer l [facility] 2021-04-04 2021-04-04 Outpatient [address] [facility] 07:30:00 23:59:00 MILLIE 2021-03-30 2021-03-30 Office nullFlavo Orthopaedic 1082 [id number] Memoria 18:29:16 21:16:34 Visit r Center l [place] 2021-03-30 2021-03-30 Outpatient MELISSA MORRIS MDA MDA [id number] 13:29:16 16:16:34 JOVANA lowe 2021-03-30 2021-03-30 Travel NATALIE ESTRADA [id number] Memoria 00:00:00 00:00:00 [facility] 2021-03-24 2021-03-24 Office nullFlavo Genitourina [id number] Memoria 18:33:21 20:44:32 Visit r ry Cancer l [facility] 2021-03-24 2021-03-24 Outpatient MELISSA CRAWFORD MDA MDA [id number] 13:33:21 15:44:32 JOSE ALFREDO lowe 2021-03-23 2021-03-24 [facility] nullFlavo Diagnostic [id number] Memoria 17:34:03 04:59:00 Encounter r Laboratory l [facility] 2021-03-24 2021-03-24 Orders nullFlavo Genitourina [id number] Memoria 00:00:00 00:00:00 Only r ry Cancer l [facility] 2021-03-24 2021-03-24 Travel NATALIE ESTRADA [id number] Memoria 00:00:00 00:00:00 [facility] 2021-03-23 2021-03-23 Outpatient MELISSA CEE MDA MDA [id number] 12:34:03 23:59:00 XOCHITL lowe 2021-03-23 2021-03-[address] Imaging [id number] Memoria 19:57:22 22:22:22 Procedure r [facility] 2021-03-23 2021-03-23 Ancillary nullFlavo Nuclear [id number] Memoria 19:03:53 19:33:53 Procedure r Medicine [facility] 2021-03-23 2021-03-23 Ancillary nullFlavo Nuclear [id number] Memoria 16:52:51 17:22:51 Procedure r [facility] 2021-03-23 2021-03-23 Outpatient MELISSA CEE MDA MDA [id number] 14:57:22 14:57:22 XOCHITL lowe 2021-03-23 2021-03-23 Outpatient MELISSA CEE KUSHAL FATIMA [id number] 14:03:53 14:03:53 XOCHITL lowe 2021-03-23 2021-03-23 Outpatient MELISSA CEE KUSHAL FATIMA [id number] 11:52:51 11:52:51 XOCHITL lowe 2021-03-23 2021-03-23 Travel [facility] [id number] Memoria 00:00:00 00:00:00 [facility] 2021-03-22 2021-03-22 Refill nullFlavo Genitourina [id number] Memoria 00:00:00 00:00:00 r ry Cancer l [facility] 2021-03-16 2021-03-17 Hospital nullFlavo X-Ray [id number] Memoria 19:27:09 04:59:00 Encounter r Outpatient l [facility] 2021-03-17 2021-03-17 Documentat nullFlavo Rehabilitat 1 [id number] Memoria 00:00:00 00:00:00 ion r ion l Services [place] 2021-03-16 2021-03-16 Outpatient MELISSA MORRIS KUSHAL FATIMA [id number] 14:27:09 23:59:00 JOVANA lowe 2021-03-16 2021-03-16 Office nullFlavo Orthopaedic [id number] Memoria 18:11:59 19:36:30 Visit r Center l [place] 2021-03-16 2021-03-16 Outpatient MELISSA MORRIS MDA MDA [id number] 13:11:59 14:36:30 JOVANA lowe 2021-03-16 2021-03-16 Office Spiritism, [facility] 1.2.840.114 [id number] 08:25:17 09:16:43 Visit Rock ORTHO AND 350.1.13.58 SPINE 9.2.7.2.686 MEDICAL [id number] PLAZA 2 2021-03-16 2021-03-16 Office Spiritism, [facility] 1.2.840.114 [id number] [place] 08:25:17 09:16:43 Visit Rock ORTHO AND 350.1.13.58 Health SPINE 9.2.7.2.686 MEDICAL [id number] PLAZA 2 2021-03-16 2021-03-16 Travel MARY BETH MARY BETH [id number] [facility] 00:00:00 00:00:00 johanne Truong 2021-03-11 2021-03-11 Outpatient [facility] [id number] [place] 00:00:00 00:00:[address] 2021-03-11 2021-03-11 Outpatient [facility] [id number] [place] 00:00:00 00:00:[address] 2021-03-11 2021-03-11 Outpatient [facility] [id number] [place] 00:00:00 00:00:[address] 2021-03-11 2021-03-11 Outpatient [facility] [id number] [place] 00:00:00 00:00:[address] 2021-03-11 2021-03-11 Outpatient [facility] [id number] [place] 00:00:00 00:00:[address] 2021-03-11 2021-03-[address] [facility] [id number] [place] 00:00:00 00:00:[address] 2021-03-11 2021-03-11 Outpatient [facility] [id number] [place] 00:00:00 00:00:[address] 2021-03-11 2021-03-11 Outpatient [facility] [id number] [place] 00:00:00 00:00:[address] 2021-02-24 2021-02-24 Outpatient [facility] [id number] [place] 00:00:00 00:00:00 CATY [address] 2021-02-16 2021-02-16 Office SANDRINE Garcia [facility] 1.2.840.114 [id number] 08:21:35 09:28:01 Visit Rock DOWD AND 350.1.13.58 SPINE 9.2.7.2.686 MEDICAL [id number] PLAZA 2021-02-16 2021-02-16 Office [facility] 1.2.840.114 [id number] [place] 08:21:35 09:28:01 Visit Rock ORTHO AND 350.1.13.58 Health SPINE 9.2.7.2.686 MEDICAL [id number] [place] 2 2021-02-10 2021-02-10 Office nullFlavo Genitourina [id number] Memoria 19:21:55 20:29:28 Visit r ry Cancer l [facility] 2021-02-09 2021-02-10 [facility] nullFlavo Diagnostic [id number] Memoria 15:11:37 04:59:00 Encounter r Laboratory l [facility] 2021-02-10 2021-02-10 Travel NATALIE ESTRADA [id number] Memoria 00:00:00 00:00:00 [facility] 2021-02-09 2021-02-09 Outpatient MELISSA CEE MDA MDA [id number] 10:11:37 10:11:37 XOCHITL lowe 2021-02-09 2021-02-09 Office [facility] 1.2.840.114 [id number] 08:30:09 09:00:09 Visit Rock ORTHO AND 350.1.13.58 SPINE 9.2.7.2.686 MEDICAL [id number] [place] 2 2021-02-09 2021-02-09 Office [facility] 1.2.840.114 [id number] [place] 08:30:09 09:00:09 Visit Rock ORTHO AND 350.1.13.58 Health SPINE 9.2.7.2.686 MEDICAL [id number] [place] 2 2021-02-08 2021-02-08 Telemedici nullFlavo Gastrointes 1 [id number] Memoria 18:01:07 18:31:07 ne r tinal l [facility] 2021-02-08 2021-02-08 Outpatient MELISSA JIMENEZ MDA MDA [id number] 13:01:07 13:01:07 OLE lowe 2021-02-02 2021-02-03 [facility] nullFlavo Diagnostic [id number] Memoria 19:00:00 04:59:00 Encounter r Laboratory l [facility] 2021-02-02 2021-02-02 Outpatient MELISSA JIMENEZ MDA MDA [id number] 14:00:00 23:59:00 OLE lowe 2021-02-02 2021-02-02 Office nullFlavo Orthopaedic [id number] Memoria 18:29:54 20:48:20 Visit r [facility] 2021-02-02 2021-02-02 Outpatient MELISSA MORRIS MDA MDA [id number] 13:29:54 15:48:20 JOVANA lowe 2021-02-02 2021-02-02 Travel [facility] [id number] Memoria 00:00:00 00:00:00 [facility] 2021-02-02 2021-02-02 Refill Spiritism, [facility] 1.2.840.114 [id number] 00:00:00 00:00:00 Rock ORTHO AND 350.1.13.58 SPINE 9.2.7.2.686 MEDICAL [id number] [place] 2 2021-02-02 2021-02-02 Refill Spiritism, [facility] 1.2.840.114 [id number] [place] 00:00:00 00:00:00 Rock ORTHO AND 350.1.13.58 Health SPINE 9.2.7.2.686 MEDICAL [id number] [place] 2 2021-02-01 2021-02-01 Telemedici nullFlavo Internal [id number] Memoria 21:34:21 21:49:05 ne r Medicine l [facility] 2021-02-01 2021-02-01 Outpatient MELISSA GOMEZ MDA MDA [id number] 16:34:21 16:49:05 EVETTE lowe 2021-01-31 2021-01-31 Telephone nullFlavo Internal [id number] Memoria 00:00:00 00:00:00 r Medicine l [facility] 2021-01-31 2021-01-31 Telephone Spiritism, [facility] 1.2.746.406 [id number] 00:00:00 00:00:00 Rock ORTHO AND 350.1.13.58 SPINE 9.2.7.2.686 MEDICAL [id number] PLAZA 2 2021-01-31 2021-01-31 Telephone Spiritism [facility] 1.2.984.223 [id number] [place] 00:00:00 00:00:00 Rock ORTHO AND 350.1.13.58 Health SPINE 9.2.7.2.686 MEDICAL [id number] PLAZA 2 2021-01-26 2021-01-26 Office Spiritism [facility] 1.2.840.114 [id number] 08:25:28 09:28:20 Visit Rock ORTHO AND 350.1.13.58 SPINE 9.2.7.2.686 MEDICAL [id number] PLAZA 2 2021-01-26 2021-01-26 Office Spiritism, [facility] 1.2.840.114 [id number] [place] 08:25:28 09:28:20 Visit Rock ORTHO AND 350.1.13.58 Health SPINE 9.2.7.2.686 MEDICAL [id number] PLAZA 2 2021-01-19 2021-01-19 Refill Spiritism, [facility] 1.2.840.114 [id number] [place] 00:00:00 00:00:00 Rock ORTHO AND 350.1.13.58 Health SPINE 9.2.7.2.686 MEDICAL [id number] PLAZA 2 2021-01-11 2021-01-12 Outpatient GREG [facility] 7514 13:15:00 16:20:00 VICTORIANO [facility] 2021-01-12 2021-01-12 Refill Spiritism, [facility] 1.2.840.114 [id number] [place] 00:00:00 00:00:00 Rock ORTHO AND 350.1.13.58 Health SPINE 9.2.7.2.686 MEDICAL [id number] PLAZA 2 2021-01-07 2021-01-07 EXT [facility] [place] EXT MSRDP 1.2.840.114 1 [id number] [place] 00:00:00 00:00:00 Mauricio Lynos LOCATION 350.1.13.58 H ealth 9.2.7.2.686 [id number] 2021-01-07 2021-01-07 EXT MHH OP EXT MSRDP 1.2.840.114 1 [id number] [place] 00:00:00 00:00:00 LOCATION 350.1.13.58 H ealth 9.2.7.2.686 [id number] 2021-01-05 2021-01-05 Office Greg UTP [facility] 1.2.840.114 [id number] [place] 08:07:51 09:21:27 Visit Victoriano ORTHO AND 350.1.13.58 Health SPINE [id number] MEDICAL [id number] PLAZA 2 2021-01-05 2021-01-05 Refill Jose UTP [facility] 1.2.840.114 [id number] [place] 00:00:00 00:00:00 Rock ORTHO AND [id number] Health SPINE [id number] MEDICAL [id number] PLAZA 2 2020-12-30 2020-12-30 Office nullFlavo Genitourina [id number] Memoria 18:00:08 20:02:02 [facility] 2020-12-30 Outpatient MELISSA CRAWFORD MDA MDA [id number] 13:00:08 15:02:02 JOSE ALFREDO lowe 2020-12-30 2020-12-30 [facility] [id number] Memoria 00:00:00 00:00:00 Alexi 2020-12-29 2020-12-29 Ancillary nullFlavo MD To 10 [id number] Memoria 14:44:02 15:14:02 Procedure r [place] Alex[place] 2020-12-29 2020-12-29 Ancillary nullFlavo MD To 10 [id number] Memoria 12:18:03 14:43:03 Procedure r [place] Alexi 2020-12-29 2020-12-29 Ancillary nullFlavo MD To 10 [id number] Memoria 12:17:20 12:47:20 Procedure r [place] 2020-12-29 2020-12-29 Outpatient MELISSA CEE MDA MDA [id number] 09:44:02 09:44:02 XOCHITL lowe 2020-12-29 2020-12-29 Outpatient MELISSA CEE MDA MDA [id number] MD 07:18:03 07:18:03 XOCHITL lowe 2020-12-29 2020-12-29 Outpatient MELISSA CEE MDA MDA [id number] 07:17:20 07:17:20 XOCHITL lowe 2020-12-29 2020-12-29 Outpatient MELISSA CEE MDA MDA [id number] 06:56:49 07:02:31 XOCHITL lowe 2020-12-29 2020-12-29 Travel NATALIE ESTRADA [id number] Memoria 00:00:00 00:00:00 johanne Truong 2020-12-15 2020-12-15 AppointSANDRINE [facility] [id number] Univers 08:00:00 08:00:00 t; VICTORIANO GARZA, at [facility] BASURTO M.D. Orthopedic Physi ci and Spine [facility], POD 3 2020-12-06 2020-12-07 Office nullFlavo Gastrointes [id number] Memoria 20:30:33 12:30:00 Visit r oh l Warren Alexi 2020-12-06 2020-12-07 Outpatient MELISSA JIMENEZ MDA MDA [id number] MD 15:30:33 07:30:00 OLE lowe 2020-12-05 2020-12-06 Hospital nullFlavo Diagnostic [id number] Memoria 12:34:08 04:59:00 Encounter r Laboratory l [place] Alexi 2020-12-06 2020-12-06 Travel NATALIE ESTRADA [id number] Memoria 00:00:00 00:00:00 Alexi 2020-12-05 2020-12-05 Outpatient MELISSA SALDAÑA MDA MDA [id number] MD 07:34:08 23:59:00 PAULINE lowe 2020-12-05 2020-12-05 Immunizati nullFlavo MD To 1 [id number] Memoria 13:22:45 13:32:45 [place] johanne Truong 2020-12-05 2020-12-05 Outpatient MELISSA HAND MDA KUSHAL [id number] 08:22:45 08:22:45 MILIND lowe 2020-12-05 2020-12-05 Travel NATALIE ESTRADA [id number] Memoria 00:00:00 00:00:00 johanne Truong 2020-12-01 2020-12-01 Appointmen SANDRINE GARZA Orthopedics [id number] Univers 08:00:00 08:00:00 t; VICTORIANO GARZA, at [facility] BASURTO M.D. Orthopedic Physi ci and Sp[facility], POD 3 2020-11-24 2020-11-24 Office nullFlavo Orthopaedic [id number] Memoria 18:23:07 19:46:27 Visit r Center johanne Truong 2020-11-24 2020-11-24 Outpatient MELISSA MORRIS KUSHAL FATIMA [id number] 13:23:07 14:46:27 JOVANA lowe 2020-11-24 2020-11-24 Travel NATALIE ESTRADA [id number] Memoria 00:00:00 [facility]00 [facility]-17 2020-11-17 Appointmen SANDRINE GARCIA Orthopedics [id number] Univers 15:00:00 15:00:00 t; [facility] DAISYMelodie Orthopedic Physi ci and Sp[facility], POD 3 2020-11-14 2020-11-14 Immunizati nullFlavo MD To 1 [id number] Memoria 13:57:24 14:07:24 [place] johanne Truong 2020-11-14 2020-11-14 Outpatient MELISSA HAND KUSHAL FATIMA [id number] 08:57:24 08:57:24 MILIND lowe 2020-11-14 2020-11-14 Travel NATALIE ESTRADA [id number] Memoria 00:00:00 00:00:00 Alexi 2020-11-11 2020-11-12 Hospital nullFlavo Diagnostic [id number] Memoria 12:51:56 04:59:00 Encounter r Laboratory l [facility] 2020-11-11 2020-11-11 Outpatient MELISSA CRAWFORD MDA MDA [id number] 07:51:56 23:59:00 JOSE ALFREDO lowe 2020-11-11 2020-11-11 Office nullFlavo Genitourina 1075 [id number] Memoria 13:17:30 14:55:34 Visit r ry Cancer l [facility] 2020-11-11 2020-11-11 Outpatient MELISSA KUSHAL CEE MDA [id number] 08:17:30 09:55:34 XOCHITL lowe 2020-11-11 2020-11-11 Travel NATALIE ESTRADA [id number] Memoria 00:00:00 00:00:00 [facility] 2020-11-03 2020-11-03 Appointmen SANDRINE GARCIA Orthopedics [id number] Univers 10:30:00 10:30:00 t; [facility] [place] [facility] Orth[facility] Physi ci and Spine [facility] 2020-10-27 2020-10-27 Office nullFlavo Orthopaedic [id number] Memoria 19:10:15 20:23:05 Visit r Center l [place] 2020-10-27 2020-10-27 Outpatient MELISSA ARTURO KUSHAL FATIMA [id number] 13:10:15 14:23:05 JOVANA lowe 2020-10-27 2020-10-27 Travel NATALIE ESTRADA [id number] Memoria 00:00:00 00:00:00 [facility] 2020-10-26 2020-10-26 Telemedici nullFlavo Internal [id number] Memoria 20:41:23 21:13:31 ne r Medicine l [facility] 2020-10-26 2020-10-26 Outpatient MELISSA GOMEZ MDA MDA [id number] 14:41:23 15:13:31 EVETTE lowe 2020-10-22 2020-10-22 Appointmen SANDRINE GARZA [facility] [id number] Univers 09:30:00 09:30:00 t; VICTORIANO GARZA, Giovanna M.D. [place] [facility] 2020-10-19 2020-10-19 Outpatient VASQUEZ GARZA [facility] [id number] 10:33:00 23:59:00 VICTORIANO [facility]osp[facility] 2020-10-19 2020-10-19 Appointmen SANDRINE GARZA [facility] [id number] Univers 08:00:00 08:00:00 t; VICTORIANO GARZA, [facility] [place] [facility] 2020-10-06 2020-10-06 Appointmen SANDRINE GARCIA Orthopedics [id number] Univers 09:00:00 09:00:00 t; ROCK GARCIA, Trauma it y of [facility] [place] [facility] 2020-09-30 2020-09-30 Office nullFlavo Melanoma [id number] Memoria 18:53:52 20:18:22 Visit r and Skin l [facility] 2020-09-30 2020-09-30 Office nullFlavo Genitourina [id number] Memoria 16:16:16 18:29:07 Visit r ry Cancer l [facility] 2020-09-30 2020-09-30 Outpatient DANTE BAILON MDA, MDA [id number] 12:53:52 14:18:22 Gerhard lowe 2020-09-30 2020-09-30 Outpatient MELISSA CRAWFORD MDA MDA [id number] 10:16:16 12:29:07 JOSE ALFREDO lowe 2020-09-29 2020-09-30 Hospital nullFlavo Diagnostic 1074 [id number] Memoria 18:27:46 05:59:00 Encounter r Laboratory l [facility] 2020-09-30 2020-09-30 Travel [facility] [id number] Memoria 00:00:00 00:00:00 l [place] 2020-09-29 2020-09-29 Outpatient MELISSA CRAWFORD MDA MDA [id number] 12:27:46 23:59:00 JOSE ALFREDO lowe 2020-09-29 2020-09-[address] Imaging [id number] Memoria 20:37:31 23:02:31 Procedure r l [place] 2020-09-29 2020-09-29 Ancillary nullFlavo Nuclear [id number] Memoria 19:05:51 19:35:51 Procedure r Medicine l [place] 2020-09-29 2020-09-29 Ancillary nullFlavo X-Ray [id number] Memoria 18:52:18 19:07:18 Procedure r Outpatient l [facility] 2020-09-29 2020-09-29 Hospital nullFlavo Rehabilitat [id number] Memoria 15:51:12 18:26:00 Encounter r ion l Services [place] 2020-09-29 2020-09-29 Ancillary nullFlavo Nuclear [id number] Memoria 17:46:17 18:16:17 Procedure r Medicine l [place] 2020-09-29 2020-09-29 Outpatient MELISSA CRAWFORD, MDA MDA [id number] 14:37:31 14:37:31 JOSE ALFREDO lowe 2020-09-29 2020-09-29 Outpatient MELISSA CRAWFORD MDA MDA [id number] 13:05:51 13:05:51 JOSE ALFREDO lowe 2020-09-29 2020-09-29 Outpatient MELISSA HENRIQUEZR, MDA MDA [id number] 12:52:18 12:52:18 JOVANA lowe 2020-09-29 2020-09-29 Outpatient MELISSA CRAWFORD, MDA MDA [id number] 09:51:12 12:26:00 JOSE ALFREDO lowe 2020-09-29 2020-09-29 Outpatient MELISSA CRAWFORD MDA MDA [id number] 11:46:17 11:46:17 JOSE ALFREDO lowe 2020-09-29 2020-09-29 Travel NATALIE ESTRADA [id number] Memoria 00:00:00 00:00:00 l [place] 2020-09-23 2020-09-23 Outpatient MELISSA CEE MDA MDA [id number] 15:35:06 16:05:38 XOCHITL lowe 2020-09-23 2020-09-23 Travel NATALIE ESTRADA [id number] Memoria 00:00:00 00:00:00 l [place] 2020-09-23 2020-09-23 Orders nullFlavo MD To [id number] Memoria 00:00:00 00:00:00 Only r Forks l [place] 2020-09-17 2020-09-17 Telephone nullFlavo Genitourina 10 [id number] Memoria 00:00:00 00:00:00 r ry Cancer l [facility] 2020-09-10 2020-09-16 Inpatient U VASQUEZ GARZA [facility] [id number] 14:25:00 12:24:00 VICTORIANO [facility]osp[facility] l 2020-09-16 2020-09-16 Telephone nullFlavo Genitourina 10 [id number] Memoria 00:00:00 00:00:00 r ry Cancer l [facility] 2020-09-14 2020-09-14 Appointmen SANDRINE GARZA [id number] Univers 08:00:00 08:00:00 t; VICTORIANO GARZA ity of [place], M.D. [place] [facility] 2020-09-10 2020-09-10 Appointmen SANDRINE GARZA Orthopedics [id number] [facility] 08:30:00 08:30:00 t; VICTORIANO GARZA, at [facility] jelly BASURTO M.D. Sports [place] [facility] 2020-09-10 2020-09-10 Orders nullFlavo Gastrointes 1075 [id number] Memoria 00:00:00 00:00:00 Only r tinal l [facility] 2020-09-08 2020-09-09 [facility] nullFlavo X-Ray [id number] Memoria 21:45:00 05:59:00 Encounter r Outpatient l [facility] 2020-09-09 2020-09-09 Telephone nullFlavo Genitourina 10 [id number] Memoria 00:00:00 00:00:00 r ry Cancer l [facility] 2020-09-09 2020-09-09 Documentat nullFlavo Wound [id number] Memoria 00:00:00 00:00:00 ion r Ostomy and l [facility]ence [facility] 2020-09-09 2020-09-09 Orders nullFlavo Genitourina 1075 [id number] Memoria 00:00:00 00:00:00 Only r ry Cancer l [facility] 2020-09-08 2020-09-08 Outpatient MELISSA MORRIS KUSHAL MDA [id number] 15:45:00 23:59:00 JOVANA lowe 2020-09-08 2020-09-08 Office nullFlavo Orthopaedic [id number] [id number] Memoria 20:33:34 22:30:26 Visit r Center l [place] 2020-09-08 2020-09-08 Outpatient MELISSA ARTURO, KUSHAL FATIMA [id number] 14:33:34 16:30:26 JOVANA lowe 2020-09-08 2020-09-08 [facility] [id number] Memoria 00:00:00 00:00:00 [facility] 2020-09-06 2020-09-07 Hospital nullFlavo Main [id number] Memoria 16:28:05 05:59:00 Encounter r Interventio l nal [facility] 2020-09-06 2020-09-06 Outpatient MELISSA JIMENEZ MDA MDA [id number] 10:28:05 23:59:00 OLE lowe 2020-09-06 2020-09-06 Anesthesia nullFlavo Main [id number] Memoria 16:39:46 16:39:46 Event r Interventio l nal [place] [facility] 2020-09-06 2020-09-06 Travel MARY BETH ESTRADA [id number] Memoria 00:00:00 00:00:00 [facility] 2020-09-03 2020-09-04 Hospital nullFlavo Interventio [id number] Memoria 15:34:20 05:59:00 Encounter r nal l Radiology Khang n 2020-09-03 2020-09-03 Outpatient MELISSA CRAWFORD MDA MDA [id number] 09:34:20 23:59:00 JOSE ALFREDO lowe 2020-09-03 2020-09-03 Clinical nullFlavo MD To 241 [id number] Memoria 15:09:22 15:22:30 Support r Teja Claudio l Alexi 2020-09-03 2020-09-03 Outpatient MELISSA MURPHY MDA MDA [id number] 09:09:22 09:22:30 MORRO lowe 2020-09-03 2020-09-03 Outpatient MELISSA HOYT MDA MDA [id number] 08:58:06 09:01:24 KATERINA Gerhard o mynor 2020-09-03 2020-09-03 Travel NATALIE ESTRADA [id number] Memoria 00:00:00 00:00:00 l Alexi 2020-08-31 2020-08-31 Orders nullFlavo Interventio [id number] Memoria 00:00:00 00:00:00 Only r nal l Radiology Khang n 2020-08-26 2020-08-27 Hospital nullFlavo Diagnostic [id number] Memoria 14:57:23 05:59:00 [facility] 2020-08-[facility] 2020-08-26 Outpatient MELISSA CEE MDA [facility] [id number] 08:57:23 23:59:00 XOCHITL lowe 2020-08-26 2020-08-26 Office nullFlavo Genitourina 1073 [id number] Memoria 15:14:15 16:21:45 Visit r ry Cancer l [facility] 2020-08-26 2020-08-26 Outpatient MELISSA CRAWFORD MDA [facility] [id number] 09:14:15 10:21:45 AMIDARRELL lowe 2020-08-26 2020-08-26 Travel NATALIE ESTRADA [id number] Memoria 00:00:00 00:00:00 l [place] 2020-08-25 2020-08-25 Orders nullFlavo MD To [id number] Memoria 00:00:00 00:00:00 [facility] 2020-[facility] 2020-08-25 Orders nullFlavo Gastrointes 1074 [id number] Memoria 00:00:00 00:00:00 Only r tinal l [place] Alexi 2020-08-10 2020-08-10 Office nullFlavo Internal [id number] Memoria 19:00:52 19:43:27 Visit r Medicine l [place] 2020-08-10 2020-08-10 Outpatient MELISSA KUSHAL GOMEZ [facility] [id number] 13:00:52 13:43:27 EVETTE Hennessy o mynor 2020-08-10 2020-08-10 Travel NATALIE ESTRADA [id number] Memoria 00:00:00 00:00:00 l Alexi 2020-08-06 2020-08-06 Outpatient MELISSA JIMENEZ KUSHAL [facility] [id number] 07:33:17 07:42:18 OLE lowe 2020-08-06 2020-08-06 Travel NATALIE ESTRADA [id number] Memoria 00:00:00 00:00:00 [facility] 2020-08-03 2020-08-03 Telemedici nullFlavo Gastrointes 1 [id number] Memoria 17:00:00 18:00:00 ne r cesiliaal l [facility] 2020-08-03 2020-08-03 Telephone nullFlavo Gastrointes 10 [id number] Memoria 00:00:00 00:00:00 r tinal l [facility] 2020-07-29 2020-07-30 Hospital nullFlavo The [id number] Memoria 18:50:29 05:59:00 Encounter r Diagnostic l [facility] Cardiology 2020-07-29 2020-07-29 Outpatient MELISSA CEE KUSHAL FATIMA [id number] 12:50:29 23:59:00 XOCHITL lowe 2020-07-29 2020-07-29 Office nullFlavo Genitourina [id number] Memoria 19:27:34 21:16:30 Visit r ry Cancer l [facility] 2020-07-29 2020-07-29 [facility] nullFlavo Diagnostic [id number] Memoria 18:45:00 18:49:00 Encounter r Laboratory l [facility] 2020-07-29 2020-07-29 Outpatient MELISSA CRAWFORD KUSHAL FATIMA [id number] 13:27:34 15:16:30 JOSE ALFREDO lowe 2020-07-29 2020-07-29 Outpatient MELISSA CEE KUSHAL FATIMA [id number] 12:45:00 12:49:00 XOCHITL lowe 2020-07-29 2020-07-29 Travel NATALIE ESTRADA [id number] Memoria 00:00:00 00:00:00 [facility] 2020-07-14 2020-07-14 AppointSANDRINE Busch Orthopedics [id number] Univers 08:30:00 08:30:00 t; ROCK GARCIA, Trauma it y of JOSH WILKERSON [facility] JOSH [facility] 2020-07-09 2020-07-10 [facility] nullFlavo Diagnostic [id number] Memoria 15:00:00 05:59:00 Encounter r Laboratory l [facility] 2020-07-09 2020-07-09 Outpatient MELISSA CRAWFROD MDA KUSHAL [id number] 09:00:00 23:59:00 JOSE ALFREDO Hennessy o mynor 2020-07-09 2020-07-09 Office nullFlavo Genitourina [id number] Memoria 15:38:48 17:02:37 Visit r ry Cancer l [facility] 2020-07-09 2020-07-09 Outpatient MELISSA CEE MDA KUSHAL [id number] 09:38:48 11:02:37 XOCHITL lowe 2020-07-09 2020-07-09 Travel NATALIE ESTRADA [id number] Memoria 00:00:00 00:00:00 [facility] 2020-07-08 2020-07-08 Orders nullFlavo Genitourina [id number] Memoria 00:00:00 00:00:00 Only r ry Cancer l [facility] 2020-07-01 2020-07-01 Telephone nullFlavo Genitourina 10 [id number] Memoria 00:00:00 00:00:00 r ry Cancer l [facility] 2020-06-30 2020-06-30 Telephone nullFlavo Genitourina 10 [id number] Memoria 00:00:00 00:00:00 r ry Cancer l [facility] 2020-06-28 2020-06-29 [facility] nullFlavo Diagnostic [id number] [id number] Memoria 16:20:52 05:59:00 Encounter r Laboratory l [facility] 2020-06-28 2020-06-28 Outpatient MELISSA CRAWFORD KUSHAL FATIMA [id number] 10:20:52 23:59:00 JOSE ALFREDO lowe 2020-06-28 2020-06-28 Office nullFlavo Genitourina [id number] Memoria 14:55:12 16:21:24 Visit r ry Cancer l [facility] 2020-06-28 2020-06-28 Outpatient MELISSA CRAWFORD KUSHAL FATIMA [id number] MD 08:55:12 10:21:24 JOSE ALFREDO Hennessy o mynor 2020-06-28 2020-06-28 Travel NATALIE ESTRADA [id number] Memoria 00:00:00 00:00:00 l [place] 2020-06-25 2020-06-26 Hospital nullFlavo Diagnostic [id number] Memoria 14:37:10 04:59:00 Encounter r Laboratory l Center [place] 2020-06-25 2020-06-25 Outpatient MELISSA CEE MDA MDA [id number] 09:37:10 23:59:00 XOCHITL Grehard o n 2020-06-25 2020-06-25 Ancillary nullFlavo General [id number] Memoria 19:54:23 20:54:23 Procedure r Ultrasound l 2020-06-25 2020-06-[address] Imaging [id number] Memoria 17:00:29 19:25:29 Procedure r l Alexi 2020-06-25 2020-06-25 Ancillary nullFlavo Nuclear [id number] Memoria 14:57:21 15:27:21 Procedure r Medicine l [place] 2020-06-25 2020-06-25 Outpatient MELISSA CRAWFORD MDA MDA [id number] 14:54:23 14:54:23 JOSE ALFREDO Oweners o n 2020-06-25 2020-06-25 Ancillary nullFlavo Nuclear [id number] Memoria 14:16:34 14:46:34 Procedure r Medicine l [place] 2020-06-25 2020-06-25 Outpatient MELISSA CEE MDA MDA [id number] 12:00:29 12:00:29 XOCHITL Gerhard o n 2020-06-25 2020-06-25 Outpatient MELISSA CEE MDA MDA [id number] 09:57:21 09:57:21 XOCHITL Gerhard o n 2020-06-25 2020-06-25 Outpatient MELISSA CHOIAZOLKUSHAL Whaley MDA [id number] 09:16:34 09:16:34 XOCHITL Gerhard o n 2020-06-25 2020-06-25 [facility] [id number] Memoria 00:00:00 00:00:00 l [place] 2020-06-18 2020-06-18 Ancillary nullFlavo MD To 10 [id number] Memoria 15:48:38 16:03:38 Procedure r [place] Alexi 2020-06-18 2020-06-18 Outpatient MELISSA CRAWFORD MDA MDA [id number] 10:48:38 10:48:38 AMISHI Gerhard o n 2020-06-18 2020-06-18 Outpatient MELISSA CRAWFORD [facility] MDA [id number] 10:19:53 10:26:50 LEMALIAEdinson OwenGerhard o n 2020-06-18 2020-06-18 Travel NATALIE ESTRADA [id number] Memoria 00:00:00 00:00:00 [facility] 2020-06-17 2020-06-17 Telephone nullFlavo Genitourina 10 [id number] Memoria 13:01:12 13:31:12 r ry Cancer l [facility] 2020-06-17 2020-06-17 Outpatient MELISAS CHOIAZOLJudd, MDA MDA [id number] 08:20:28 08:24:10 XOCHITL Gerhard o n 2020-06-17 2020-06-17 Outpatient MELISSA CRAWFORD MDA MDA [id number] 08:01:12 08:01:12 JOSE ALFREDO Gerhard o mynor 2020-06-10 2020-06-10 Telephone nullFlavo Genitourina 10 [id number] Memoria 17:28:30 17:58:30 r ry Cancer l [place] 2020-06-10 2020-06-10 Outpatient MELISSA CRAWFORD [facility] MDA [id number] 12:28:30 12:28:30 JOSE ALFREDO Hennessy o mynor 2020-06-10 2020-06-10 Outpatient MELISSA CEE, MDA MDA [id number] 08:16:01 08:19:30 XOCHITL Oweners o mynor 2020-06-10 2020-06-10 Travel NATALIE ESTRADA [id number] Memoria 00:00:00 00:00:00 Alexi 2020-05-28 2020-05-28 Infusion nullFlavo MD To [id number] Memoria 19:19:54 22:40:40 r [place] Alexi 2020-05-28 2020-05-28 Outpatient MELISSA CRAWFORD [facility] MDA [id number] 14:19:54 17:40:40 JOSE ALFREDO Hennessy o n 2020-05-27 2020-05-28 Hospital nullFlavo Diagnostic [id number] Memoria 15:19:36 04:59:00 [facility] 2020-05-[facility] 2020-05-28 Travel NATALIE ESTRADA [id number] Memoria 00:00:00 00:00:00 [facility] 2020-05-27 2020-05-27 Outpatient MELISSA CHOIAZOLJudd, MDA MDA [id number] 10:19:36 23:59:00 XOCHITL Hennessy o mynor 2020-05-27 2020-05-27 Hospital nullFlavo Diagnostic [id number] Memoria 13:50:48 15:18:00 Encounter r Laboratory l [facility] 2020-05-27 2020-05-27 Office nullFlavo Genitourina [id number] Memoria 14:13:55 15:06:46 Visit r ry Cancer l [facility] 2020-05-27 2020-05-27 Outpatient MELISSA CRAWFORD [facility] MDA [id number] 08:50:48 10:18:00 JOSE ALFREDO Hennessy o mynor 2020-05-27 2020-05-27 Outpatient STEPHAZOLJudd, MDA MDA [id number] 09:13:55 10:06:46 XOCHITL lowe 2020-05-27 2020-05-27 Travel NATALIE ESTRADA [id number] Memoria 00:00:00 00:00:00 [facility] 2020-05-26 2020-05-26 Orders nullFlavo Genitourina [id number] Memoria 00:00:00 00:00:00 Only r ry Cancer l [facility] 2020-04-30 2020-04-30 Infusion nullFlavo MD To [id number] Memoria 20:08:26 21:21:38 [facility] 2020-04-[facility] 2020-04-30 Outpatient MELISSA CRAWFORD [facility] MDA [id number] 15:08:26 16:21:38 JOSE ALFREDO Hennessy o mynor 2020-04-30 2020-04-30 [facility] MDA [id number] 14:51:37 14:56:06 XOCHITL Hennessy o mynor 2020-04-30 2020-04-30 Travel NATALIE ESTRADA [id number] Memoria 00:00:00 00:00:00 [facility] 2020-04-29 2020-04-29 Telemedici nullFlavo Genitourina 1 [id number] Memoria 13:39:17 14:09:17 ne r ry Cancer l [facility] 2020-04-29 2020-04-29 Outpatient MELISSA CRAWFORD [facility] MDA [id number] 08:39:17 08:39:17 JOSE ALFREDO lowe 2020-04-28 2020-04-29 Hospital nullFlavo Diagnostic [id number] Memoria 18:45:00 04:59:00 Encounter r Laboratory l [facility] [place] 2020-04-28 2020-04-28 Outpatient MELISSA CRAWFORD MDA MDA [id number] 13:45:00 23:59:00 JOSE ALFREDO Gerhard o n 2020-04-28 2020-04-28 Office nullFlavo Orthopaedic [id number] Memoria 18:22:09 20:27:34 Visit r Center l [place] 2020-04-28 2020-04-28 Outpatient MELISSA MORRIS MDA MDA [id number] 13:22:09 15:27:34 JOVANA lowe 2020-04-28 2020-04-28 [facility] [id number] Memoria 00:00:00 00:00:00 l [place] 2020-04-16 2020-04-16 Outpatient MELISSA CRAWFORD MDA MDA [id number] MD 09:38:54 23:59:00 JOSE ALFREDO Hennessy o mynor 2020-04-16 2020-04-16 Outpatient MELISSA CRAWFORD MDA MDA [id number] MD 10:17:44 11:35:52 JOSE ALFREDO Hennessy o mynor 2020-04-15 2020-04-15 Outpatient MELISSA RIDER MDA Carina/Hep/Nu [id number] 06:30:00 10:55:00 MARGARITA lowe 2020-04-14 2020-04-14 Appointmen SANDRINE GARCIA Orthopedics [id number] [facility] 08:30:00 08:30:00 tROCK LARA [facility] JOSH WILKERSON PA-C Orthopedic Physi ci and Spine [facility] 2020-04-14 2020-04-14 Outpatient MELISSA CRAWFORD MDA MDA [id number] 07:27:28 07:27:28 JOSE ALFREDO lowe 2020-04-14 2020-04-14 Outpatient MELISSA CRAWFORD MDA MDA [id number] 07:22:16 07:22:16 JOSE ALFREDO Hennessy o mynor 2020-04-07 2020-04-07 Outpatient MELISSA MORRIS MDA MDA [id number] 13:10:51 14:22:42 JOVANA lowe 2020-04-02 2020-04-02 Outpatient EL ADRIAZOLA, MDA MDA [id number] 15:23:24 15:23:24 XOCHITL Oweners o mynor 2020-04-01 2020-04-01 Outpatient EL ADRIAZOLA, MDA MDA [id number] 12:27:38 23:59:00 XOCHITL Oweners o mynor 2020-04-01 2020-04-01 Outpatient EL ADRIAZOLA, MDA MDA [id number] 09:15:00 12:26:00 XOCHITL Oweners o mynor 2020-04-01 2020-04-01 Outpatient EL CRAWFORD, MDA MDA [id number] 09:42:50 12:03:29 JOSE ALFREDO Hennessy o mynor 2020-03-31 2020-03-31 Outpatient EL ADRIAZOLA, MDA MDA [id number] 11:40:43 11:40:43 XOCHITL Oweners vincenzo lowe 2020-03-31 2020-03-31 Outpatient EL ADRIAZOLA, MDA MDA [id number] 09:03:02 09:03:02 XOCHITL Oweners o mynor 2020-03-31 2020-03-31 Outpatient EL ADRIAZOLA, MDA MDA [id number] 09:02:24 09:02:24 XOCHITL Oweners vincenzo lowe 2020-03-31 2020-03-31 Outpatient EL ADRIAZOLA, MDA MDA [id number] 09:02:06 09:02:06 XOCHITL Oweners vincenzo lowe 2020-03-31 2020-03-31 Outpatient EL ADRIAZOLA, MDA MDA [id number] 08:44:14 08:50:38 XOCHITL Oweners vincenzo lowe 2020-03-31 2020-03-31 Outpatient EL ADRIAZOLA, MDA MDA [id number] 00:00:00 00:00:00 XOCHITL Oweners vincenzo lowe 2020-03-10 2020-03-10 Appointmen [facility] Orthopedics [id number] [facility] 08:30:00 08:30:00 t; ROCK GARCIA, at [facility] JOSH WILKERSON Sports [place] PA-Melodie Medicine Physici [place] [facility] 2020-03-05 2020-03-08 Outpatient EL ADRIAZOLA, MDA MDA [id number] 14:44:34 07:54:58 XOCHITL lowe 2020-03-05 2020-03-05 Outpatient EL STEPHAZOLA, MDA MDA [id number] 14:22:36 14:27:05 XOCHITL lowe 2020-02-25 2020-02-25 Outpatient EL ARTURO, MDA MDA [id number] 13:48:29 15:58:50 JOVANA lowe 2020-02-20 2020-02-20 Outpatient EL ADRY, MDA Carina/Hep/Nu [id number] 12:21:11 16:00:00 MARGARITA lowe 2020-02-19 2020-02-19 Outpatient EL YVETTE, MDA MDA [id number] 07:09:24 07:09:24 JOSE ALFREDO lowe 2020-02-18 2020-02-18 Outpatient EL YVETTE, MDA MDA [id number] 07:53:04 07:53:04 JOSE ALFREDO lowe 2020-02-06 2020-02-09 Outpatient MELISSA CRAWFORD, MDA MDA [id number] 13:43:39 08:03:08 JOSE ALFREDO lowe 2020-01-14 2020-01-14 Appointmen SANDRINE GARCIA Orthoped[facility] [phone] [facility] 08:30:00 08:30:00 t; ROCK GARCIA, Trauma it y [facility] 2020-01-09 2020-01-09 Outpatient EL ADRIAZOLA, MDA MDA [id number] 13:10:21 17:11:10 XOCHITL lowe 2020-01-08 2020-01-08 Outpatient EL ADRIAZOLA, MDA MDA [id number] 08:26:11 08:26:11 XOCHITL lowe 2020-01-08 2020-01-08 Outpatient EL ADRIAZOLA, MDA MDA [id number] 08:25:54 08:25:54 XOCHITL lowe 2019-12-12 2019-12-12 Outpatient EL ADRIAZOLA, MDA MDA [id number] 13:35:44 13:35:44 XOCHITL lowe 2019-11-19 2019-11-19 Appointmen SANDRINE GARZA Orthopedics [id number] [facility] 14:00:00 14:00:00 t; VICTORIANO GARZA at [facility] jelly BASURTO M.D. [facility] 2019-11-14 2019-11-15 Outpatient MELISSA CRAWFORD MDA MDA [id number] 11:39:03 08:19:11 JOSE ALFREDO lowe 2019-10-22 2019-10-22 Appointmen SANDRINE GARZA Orthopedics [id number] 08:00:00 08:00:00 t; VICTORIANO GARZA at [facility] [place] BASURTO Alexideysi Corral M.D. [facility] ci [facility] 2019-10-17 2019-10-17 Outpatient MELISSA CRAWFORD KUSHAL FATIMA [id number] 10:16:54 13:25:19 JOSE ALFREDO lowe 2019-09-24 2019-09-24 Appointmen SANDRINE GARZA Orthopedics [id number] Univers 08:00:00 08:00:00 t; VICTORIANO GARZA at [facility] [place] [facility] 2019-09-12 2019-09-17 Outpatient MELISSA CRAWFORD KUSHAL MDA [id number] 10:10:18 07:21:15 JOSE ALFREDO lowe 2019-09-02 2019-09-02 Appointmen SANDRINE GARCIA [facility] [id number] Univers 10:00:00 10:00:00 t; [facility] WILK[facility] PA-C [facility] 2019-08-15 2019-08-15 Outpatient MELISSA CEE KUSHAL FATIMA [id number] 10:19:04 22:18:49 XOCHITL lowe 2019-08-13 2019-08-13 Appointmen SANDRINE GARCIA Orthopedics [id number] Univers 08:30:00 08:30:00 t; ROCK GARCIA [facility] JOSH WILKERSON PA-C Orthopedic Physi ci and Spine [facility] 2019-07-30 2019-07-30 Appointmen SANDRINE GARCIA Orthopedics [id number] Univers 09:00:00 09:00:00 t; ROCK GARCIA [facility] JOSH WILKERSONC Orthopedic Physi ci and Spine [facility] 2019-07-18 2019-07-18 Outpatient MELISSA CRAWFORD KUSHAL FATIMA [id number] 11:00:39 14:20:57 JOSE ALFREDO lowe 2019-07-16 2019-07-16 [facility] Orthopedics [id number] Univers 08:30:00 08:30:00 t; [facility] DAISYMelodie Orthopedic Physi ci and Spine [facility] 2019-07-02 2019-07-02 [facility]SE [facility] Orthopedics [id number] Univers 08:30:00 08:30:00 t; [facility] [place] DAISYMelodie Orthopedic Physi ci and Spine [facility] 2019-06-25 2019-06-25 [facility] G[facility] [id number] Univers 10:00:00 10:00:00 t; VICTORIANO GARZA ity of [place], M.D. [place] M.D. Physici ans 2019-06-18 2019-06-18 [facility] GREG [facility] Orthopedics [id number] Univers 08:30:00 08:30:00 t; VICTORIANO GARZA at [facility] [place] Gomez M.D. Orthopedic Physi ci and Spine [facility] 2019-06-06 2019-06-06 Outpatient MELISSA CEE KUSHAL FATIMA [id number] 12:42:05 21:29:05 XOCHITL lowe 2019-06-03 2019-06-03 [facility] [id number] Univers 09:00:00 09:00:00 t; VICTORIANO GARZA ity of [place], M.D. [place] M.D. Physici ans 2019-06-03 2019-06-03 Inpatient MHOSH OSH [id number] MH 14:10:00 05:16:00 Orthop e dic and Spine Hospita l 2019-05-27 2019-05-27 Appointmen JOSE [facility] Orthopedics [id number] Univers 09:00:00 09:00:00 t; ROCK GARCIA [facility], PASelin Corral PA-C Orthopedic Physi ci and Spine [facility] 2019-05-22 2019-05-22 Appointmen SANDRINE GARZA [facility] [id number] Univers 07:00:00 07:00:00 t; VICTORIANO GARZA ity [facility] [place], [facility] 2019-05-21 2019-05-21 Appointmen SANDRINE GARCIA Orthopedics [id number] Univers 08:30:00 08:30:00 t; ROCK GARCIA [facility] JOSH WILKERSON [place] JOSH Orthopedic Physi ci and Spine [facility] 2019-05-09 2019-05-09 Outpatient MELISSA CRAWFORD, KUSHAL MDA [id number] 10:02:08 23:59:00 JOSE ALFREDO lowe 2019-04-30 2019-04-30 Appointmen SANDRINE GARZA Orthopedics [id number] Univers 08:00:00 08:00:00 t; VICTORIANO GARZA [facility] Giovanna M.D. [facility] 2019-04-11 2019-04-11 Outpatient MELISSA CEE, MDA MDA [id number] 10:57:09 10:57:09 XOCHITL lowe 2019-04-02 2019-04-02 AppointSANDRINE Terrell Orthopedics [id number] Univers 08:00:00 08:00:00 t; VICTORIANO GARZA, [facility] 2019-03-10 2019-03-10 Outpatient MELISSA CEE MDA MDA [id number] 12:58:23 20:57:18 XOCHITL lowe 2019-03-05 2019-03-05 Appointmen SANDRINE GARZA Orthopedics [id number] Univers 08:30:00 08:30:00 t; VICTORIANO GARZA [facility] [place] BASURTO [facility] 2019-02-19 2019-02-19 Appointmen SANDRINE GARCIA Orthopedics [id number] Univers 08:30:00 08:30:00 t; ROCK GARCIA [facility] JOSH WILKERSON [facility] JOSH Medicine Physici [place] - ans [facility] [place] [facility] 2019-02-10 2019-02-10 Outpatient MELISSA OMALLEY MDA [facility] [id number] 13:16:00 23:59:00 MILKA lowe 2019-02-05 2019-02-05 Appointmen SANDRINE GARCIA Orthopedics [id number] Univers 09:00:00 09:00:00 t; ROCK GARCIA [facility] JOSH WILKERSON [facility] DAISY-Melodie Orthopedic Physi ci and Spine [facility] 2019-01-29 2019-01-29 Appointmen SANDRINE GARZA Orthopedics [id number] Univers 08:00:00 08:00:00 t; VICTORIANO GARZA - [place] ity of [place], M.D. [facility]ici ans 2019-01-22 2019-01-22 Appointmen SANDRINE GARCIA [facility] [id number] Univers 09:00:00 09:00:00 t; ROCK GARCIA [facility]H WILK[place] DAISYMelodie [facility] 2019-01-15 2019-01-15 Appointmen [facility] [id number] Univers 09:30:00 09:30:00 t; ROCK GARCIA Orthopedics [facility] JOSH WILKERSON [place] J[facility]H [facility] 2019-01-08 2019-01-08 Appointmen [facility] [id number] Univers 09:30:00 09:30:00 t; ROCK GARCIA Orthopedics [facility] JOSH WILKERSON [place] DAISYMelodie [facility] 2019-01-03 2019-01-03 Outpatient [facility] [id number] 10:59:00 10:59:00 Orthop e dic and Spine Hospita l 2019-01-02 2019-01-02 Appointmen SANDRINE GARZA [facility] [id number] Univers 11:00:00 11:00:00 t; VICTORIANO GARZA ity of [place], M.D. [facility] Physici ans 2019-01-01 2019-01-01 Appointmen SANDRINE GARZA Orthopedics [id number] Univers 08:00:00 08:00:00 t; VICTORIANO GARZA ity of [place], M.D. [place] M.D. Physici ans 2018-12-31 2018-12-31 Appointmen SANDRINE GURROLA [facility] [id number] Univers 13:30:00 13:30:00 t; MARLO GURROLA M.D. ity of [place], [place] M.D. Physici ans 2018-12-31 2018-12-31 Outpatient [facility] [id number] [facility] 13:15:00 13:15:00 2018 2018 Appointmen JOSE [facility] [id number] Univers 09:30:00 09:30:00 t; ROCK GARCIA Orthopedics Martin PA-C [place] DAISYMelodie Physici ans 2018-12-25 2018-12-25 Appointmen JOSE [facility] Orthopedics [id number] Univers 09:30:00 09:30:00 t; ROCK GARCIA at [facility] it y of JOSH WILKERSON [place] DAISY-C Physici ans 2018-12-12 2018-12-12 [facility] [id number] Univers 09:00:00 09:00:00 t; VICTORIANO GARZA ity of [place], M.D. [place] M.D. Physici ans 2018-12-13 2018-12-12 Inpatient [facility] [id number] 08:31:00 06:45:00 Orthop e dic and Spine Hospita l 2018-12-04 2018-12-04 Appointmen SANDRINE GARZA [facility] [id number] Univers 08:30:00 08:30:00 t; VICTORIANO GARZA, Ortho and i ty jelly BASURTO M.D. Spine [facility] [place] ans 2018-11-20 2018-11-20 Appointmen JOSE [facility] [id number] Univers 13:00:00 13:00:00 t; ROCK GARCIA it y of JOSH WILKERSON [place] DAISY-Melodie Physici ans 2018-11-20 2018-11-20 Appointmen JOSE [facility] [id number] Univers 13:00:00 13:00:00 t; [place], Orthopedics ity of JOSH WILKERSON [facility] Physici ans 2018-11-06 2018-11-06 Appointmen SANDRINE GARCIA Orthopedics [id number] Univers 09:30:00 09:30:00 t; ROCK GARCIA, at [facility] it y of JOSH WILKERSON [facility] Physici ans 2018-10-24 2018-10-24 Appointmen SANDRINE GARZA [facility] [id number] Univers 09:00:00 09:00:00 t; VICTORIANO GARZA, [place] BAS[place] [facility].D. Physici ans 2018-09-25 2018-09-25 Appointmen SANDRINE GARZA [facility] [id number] Univers 08:30:00 08:30:00 t; VICTORIANO GARZA, Ortho and i ty jelly BASURTO M.D. Spine [facility] Medical Physici [place] ans 2018-09-23 2018-09-23 Appointmen SANDRINE GURROLA [facility] [id number] Univers 14:30:00 14:30:00 t; MARLO GURROLA M.D. ity [facility] Physici ans 2018-09-09 2018-09-09 Appointmen SANDRINE GURROLA [facility] [id number] Univers 09:30:00 09:30:00 t; MARLO GURROLA M.D. ity [facility] Physici ans 2018-07-31 2018-07-31 Appointmen SANDRINE Burton [facility] [id number] Univers 10:00:00 10:00:00 t; Tip Burton ity of [place], M.D. [facility] [place] [facility] Physici ans 2018-06-28 2018-06-28 Appointmen SANDRINE GARZA [facility] [id number] Univers 09:30:00 09:30:00 t; VICTORIANO GARZA Ortho and i ty of [place] Spine [facility] Medical Physici [place] ans 2018-06-25 2018-06-25 Appointmen Bakari [facility] [id number] Univers 14:00:00 14:00:00 t; Abdiel Sims M.D. [place], Physi ci M.D. ans 2018-05-14 2018-05-14 Appointleonel Villegas [facility] UTP [id number] Univers 15:00:00 15:00:00 t; Abdiel Sims M.D. [place], Physi ci M.D. ans 2018-05-10 2018-05-10 Appointmen SANDRINE GARZA Orthopedics [id number] Univers 11:00:00 11:00:00 t; VICTORIANO GARZA ity of [place], M.D. [place] M.D. Physici ans 2018-04-09 2018-04-09 Appointleonel Burton, [facility] UTP [id number] Univers 14:30:00 14:30:00 t; Tip Burton ity of [place], M.D. [place] M.Daniel. Physici ans 2018-03-29 2018-03-29 AppointSANDRINE Terrell Orthopedics [id number] Univers 13:30:00 13:30:00 t; VICTORIANO GARZA ity of [place], M.D. [place] Ellyn.D. Physici ans 2018-03-12 2018-03-12 Appointleonel Burton, [facility] UTP [id number] Univers 10:30:00 10:30:00 t; Tip Burton ity of [place], M.D. [place] Ellyn.Ilda Physici ans 2018-02-19 2018-02-19 Appointleonel Burton, [facility] UTP [id number] Univers 12:15:00 12:15:00 t; Tip Burton ity of [place], M.D. [place] M.D. Physici ans 2018-01-29 2018-01-29 Appointleonel Burton, [facility] UTP [id number] Univers 09:30:00 09:30:00 t; Tip Burton ity of [place], M.D. [place] Ellyn.Ilda Physici ans 2017-12-28 2017-12-28 AppointSANDRINE Busch Orthopedics [id number] Univers 10:00:00 10:00:00 t; ROCK GARCIA, at [facility] it y of JOSH WILKERSON [place] DAISY-Melodie Physici ans 2017-12-17 2017-12-17 Appointmen Micheal, SANDRINE UTP [id number] Univers 11:15:00 11:15:00 t; Tip Burton ity of [place], M.D. [facility] [place] [facility] Physici ans 2017-11-20 2017-11-20 Appointmen SANDRINE Burton [facility] [id number] Univers 14:00:00 14:00:00 t; Tip Burton ity of [place], M.D. [facility] [place] [facility] Physici ans 2017-11-13 2017-11-13 Appointmen SANDRINE Burton [facility] [id number] Univers 10:30:00 10:30:00 t; Tip Burton ity of [place], M.D. [facility] [place] [facility] Physici ans 2017-11-09 2017-11-09 Appointmen SANDRINE GARCIA Orthopedics [id number] Univers 10:00:00 10:00:00 t; ROCK GARCIA, at [facility] it y of JOSH WILKERSON [place] PAC Physici ans 2017-10-22 2017-10-22 Appointmen SANDRINE GARZA [facility] [id number] Univers 13:00:00 13:00:00 t; VICTORIANO GARZA ity of [place], M.D. [facility] Physici ans Results Test Description Test Time Test Comments Results Result Comments Source Protein/Creatinine Ratio Urine 2021-06-20 21:37:27 Test Item Value Reference Range Interpretation Comme nts UTP Ran (test code = 7922) >555 mg/dL N ormal range not available for collections les s than 24 hours in duration. U Creatinine (test code = 97.1 mg/dL 40.0-278.0 Th e reference range listed is 7725) for first morni ng urine collection. U Prot/Creat (test code = See Note See_Comment Un able to perform ratio 7805) calculation due to one or more parameters outs kourtney of reportable rang es. [Automated message] The sy stem which generated this result transmitted ref erence range: <=0.14. The ref erence range was not used to interpret this result as marcella l/abnormal. MD ToFractionated [id number] 21:29:23 Test Item Value Reference Range Interpretation Comments [...] th is result as normal/abnormal . MD ToGlomerular Filtration [id number] 21:29:22 Test Item Value Reference Range Interpretation Comments eGFR-AA (test code = 48 See_Comment L Normal eGFR: >= 60 8062) mL/min/1.73 m2N ote: The eGFR is kylah culated using the CKD-E PI equation. The e GFR declines with a ge. eGFR <60 mL/min /1.73 m2 is considere d as "decreased". Th is equation should only be used for pat ients 18 and older. According to rex zabala National Kidney [employer]'s Ki dney Disease Outcome Quality Initiat sandi (KDOQI) classif ication and 2012 Kidney Disease Improvi ng Global Outcomes (KDIGO) Clinica l Practice Guidel ine, the stage of CK D should be categ orized based on estima jossue GFR. Stage Desc ription GFR mL/mi n/1.73 m21 Normal or h igh GFR >=902 Mildly decreased GFR 60-893a M ildly to moderately decreased GFR 45-593b Moderat christo to severely decrea sed GFR 30-444 Carmen rely decreased GFR 15-295 Kidney f ailure <15 [Auto mated message] The sy stem which generated this result transmit jossue reference range : >=60 mL/min/1.73 sq. m. The reference range was not used to int erpret this result as normal/abnormal . eGFR-HANNAH (test code = 42 See_Comment L Normal eGFR: >= 60 8063) mL/min/1.73 m2N ote: The eGFR is kylah culated using the CKD-E PI equation. The e GFR declines with a ge. eGFR <60 mL/min /1.73 m2 is considere d as "decreased". Th is equation should only be used for pat ients 18 and older. According to rex zabala National Kid[employer]'s Ki dney Disease Outcome Quality Initiat sandi (KDOQI) classif ication and 2012 Kidney Disease Improvi ng Global Outcomes (KDIGO) Clinica l Practice Guidel ine, the stage of CK D should be categ orized based on estima jossue GFR. Stage Desc ription GFR mL/mi n/1.73 m21 Normal or h igh GFR >=902 Mildly decreased GFR 60-893a M ildly to moderately decreased GFR 45-593b Moderat christo to severely decrea sed GFR 30-444 Carmen rely decreased GFR 15-295 Kidney f ailure <15 [Auto mated message] The sy stem which generated this result transmit jossue reference range : >=60 mL/min/1.73 sq. m. The reference range was not used to int erpret this result as normal/abnormal . Lab Interpretation Abnormal (test code = 94062-4) MD ToTotal [id number] 21:29:21 Test Item Value Reference Range Interpretation Comments Total Protein (test code = 7649) 7.7 g/dL 6.4-8.3 MD ToMagnesium [id number] 21:29:20 Test Item Value Reference Range Interpretation Comments Magnesium (test code = 6359) 2.0 mg/dL 1.6-2.6 MD ToAlkaline [id number] 21:29:19 Test Item Value Reference Range Interpretation Comments Alk Phos (test code = 4768) 155 U/L 40-129 H Lab Interpretation (test code = Abnormal 42018-1) MD ToPhosphorus [id number] 21:29:18 Test Item Value Reference Range Interpretation Comments Phosphorus (test code = 6817) 4.2 mg/dL 2.5-4.5 MD [id number] 21:29:17 Test Item Value Reference Range Interpretation Comments ALT (test code = 22 U/L See_Comment [Automated message] The 2141) system which ge nerated this result transmit jossue reference range : <=41. The reference range was not used to interpr et this result as marcella l/abnormal. MD [id number] 21:29:16 Test Item Value Reference Range Interpretation Comments LDH (test code = 6111) 248 U/L 135-225 H Resul ts greater than 1651 U/L may no t be reliable due to matrix effect w ith extended diluti on as it exceeds the banana room cutter s recommended l imit. Caution should be exercised when interpreting buck ch values and done in conjunction wit h clinical contex t. Lab Interpretation (test Abnormal code = 49307-1) MD To.Serum [id number] 21:29:15 Test Item Value Reference Range Interpretation Comments Creatinine (test code = 5399) 1.80 mg/dL 0.67-1.17 H Lab Interpretation (test code = Abnormal 06692-3) MD ToCalcium [id number] 21:29:14 Test Item Value Reference Range Interpretation Comments Calcium Lvl (test code = 5258) 9.4 mg/dL 8.4-10.2 MD [id number] 21:29:13 Test Item Value Reference Range Interpretation Comments BUN (test code = 5055) 42 mg/dL 6-23 H Lab Interpretation (test code = Abnormal 88869-9) MD ToAlbumin [id number] 21:29:12 Test Item Value Reference Range Interpretation Comments Albumin Lvl (test code = 3.4 See_Comment L [A utomated message] 0879) The system [employer] generated this result transmitted ref erence range: 3.5 - 5. 2 gm/dL. The refe rence range was not u sed to interpret this result as normal/abnor mal. Lab Interpretation (test Abnormal code = 50401-8) MD ToAspartate [id number] 21:29:11 Test Item Value Reference Range Interpretation Comments AST (test code = 23 U/L See_Comment [Automated message] The 7276) system which ge nerated this result transmit jossue reference range : <=40. The reference range was not used to interpr et this result as marcella l/abnormal. MD ToElectrolyte [id number] 21:29:10 Test Item Value Reference Range Interpretation Comments Sodium Lvl (test code = 136 See_Comment [Au tomated message] 1340) The system [employer] generated this result transmitted ref erence range: 136 - 14 5 mEq/L. The refe rence range was not u sed to interpret this result as normal/abnor mal. Potassium Lvl (test code 4.6 See_Comment [A utomated message] = 0176) The system [employer] generated this result transmitted ref erence range: 3.5 - 5. 1 mEq/L. The refe rence range was not u sed to interpret this result as normal/abnor mal. Chloride (test code = 105 See_Comment [Auto mated message] 9915) The system [employer] generated this result transmitted ref erence range: 98 - 107 mEq/L. The refe rence range was not u sed to interpret this result as normal/abnor mal. CO2 (test code = 5227) 19 See_Comment L [Aut omated message] The system [employer] generated this result transmitted ref erence range: 22 - 29 mEq/L. The reference r sheng was not used to interpret this result as normal/abnor mal. Anion Gap (test code = 12 See_Comment [Aut omated message] 3626) The system [employer] generated this result transmitted ref erence range: 4 - 14 m Eq/L. The reference r sheng was not used to interpret this result as normal/abnor mal. Lab Interpretation (test Abnormal code = 79204-7) MD ToGlucose [id number] 21:29:09 Test Item Value Reference Range Interpretation Comments Glucose Level (test code 233 mg/dL 70-99 H Eff ective 03/22/16, = 5699) the glucose reference inter vals have been updat ed based on Americ an Diabetes Associ ation guidelines (Standards of Medical Care in Diabetes 2016. Diabetes Care 2 016; 39: S13-S22).Fa sting blood glucose:Normal: 70-99 mg/dLImpa ired fasting glucose (increased risk for diabetes or pre-diabetes): 100-125 mg/dLDiabetes mellitus: >/=1 26 mg/dL Random bl ood glucose:Normal: 70-199 mg/dLNot e: Random glucose >100 mg/dL is associ ated with increased risk for diabetes Lab Interpretation (test Abnormal code = 27932-5) MD Buchanan [id number] 21:29:08 Test Item Value Reference Range Interpretation Comments T4 Free (test code = 7502) 1.12 ng/dL 0.93-1.70 MD [id number] 21:29:07 Test Item Value Reference Range Interpretation Comments TSH (test code = 2.59 See_Comment [Automated message] The 7008) system which ge nerated this result transmit jossue reference range : 0.27 - 4.20 mcunit/mL. The reference range was not used to interpr et this result as marcella l/abnormal. MD [id number] 21:23:26 Test Item Value Reference Range Interpretation Comments CRP (test code = 43.85 mg/L Reference r jessicaes for HS 5235) CRP assay are a s follows: Reference range s when used to assess cardi ac risk: <1.00 mg/L Low cardiovascular risk 1.00-3.00 mg/L Average cardiovascular risk >3.00 mg/L High cardi ovascular risk.Reference ranges when used to assess inflammatory re sponses: Less than or eq ual to 10.00 mg/L. MD ToUrinalysis with [id number] 20:47:18 Test Item Value Reference Interpretation Comments Range UA WBC (test code = 4 See_Comment H [Automa jossue 7904) message] The system which generated this result transmitted reference range : 0 - 2 /HPF. The reference range was not used to interpret this result as normal/abnormal . UA RBC (test code = 36 See_Comment H [Automa jossue 7819) message] The system which generated this result transmitted reference range : 0 - 2 /HPF. The reference range was not used to interpret this result as normal/abnormal . UA Mucous (test code NOT SEEN Not Seen-Trace = 7887) /HPF UA Bacteria (test NOT SEEN NOT SEEN /HPF code = 7870) UA Squam Epi (test OCC None-Occasiona code = 7896) l /HPF UA Trans Epi (test OCC NOT SEEN /HPF A code = 7898) UA Hyal Cast (test 6 See_Comment H [Automat ed code = 7883) message] The system which generated this result transmitted reference range : 0 - 2 /LPF. The reference range was not used to interpret this result as normal/abnormal . UA Gran Cast (test 3 See_Comment H [Automat ed code = 7882) message] The system which generated this result transmitted reference range : <=0 /LPF. The reference range was not used to interpret this result as normal/abnormal . RANDI (test code = Some reporting RANDI) parameters within the Urinalysis test have changed due to the implementation of new instrumentation in the [place], allowing greater sensitivity of measurement. Urinalysis results reported by the [facility] using existing instrumentation, as well as Urinalysis testing performed manually or by backup methodology at the [place] will remain relatively unchanged. New reporting parameters and units will now be reported for all campuses. Lab Interpretation Abnormal (test code = 80752-7) MD ToSed [id number] 20:38:19 Test Item Value Reference Range Interpretation Comments Sed Rate (test code = 117 See_Comment H [Auto mated message] 4537-7) The system [employer] generated this result transmitted ref erence range: 0 - 9 mm /hr. The reference r sheng was not used to interpret this result as normal/abnor mal. Lab Interpretation (test Abnormal code = 41640-9) MD ToUrinalysis w/Microscopic if [id number] 20:11:26 Test Item Value Reference Range Interpretation Comments UA Color (test code = 7877) Yellow Straw-Yellow UA Appear (test code = 7868) Hazy Clear A UA Glucose (test code = 7881) >=500 NEG mg/dL A UA Bili (test code = 7871) NEG NEG UA Ketones (test code = 7884) NEG NEG mg/dL UA Spec Grav (test code = 7894) 1.021 1.003-1.035 UA Blood (test code = 7872) NEG NEG UA pH (test code = 7909) 6.0 5.0-9.0 UA Protein (test code = 7890) >=500 NEG mg/dL A UA Urobilinogen (test code = 7903) NEG NEG UA Nitrite (test code = 7888) NEG NEG UA Leuk Est (test code = 7886) NEG NEG Lab Interpretation (test code = Abnormal 31253-7) MD [id number] 20:08:49 Test Item Value Reference Range Interpretation Comments Neutrophil % (test code = 73.2 % 42.0-66.0 H 6491) Lymphocyte % (test code = 14.0 % 24.0-44.0 L 6194) Monocyte % (test code = 7.5 % 2.0-7.0 H 6422) Eosinophil % (test code = 4.5 % 1.0-4.0 H 5520) Basophil % (test code = 0.6 % 0.0-1.0 5068) IGRE % (test code = 5958) 0.2 % 0.0-0.4 IG RE % count includes Metamyelocytes, Myelocytes, and Promyelocytes. Neutrophil Abs (test code 4.59 K/uL 1.70-7.30 = 6492) Lymphocyte Abs (test code 0.88 K/uL 1.00-4.80 L = 6195) Monocyte Abs (test code = 0.47 K/uL 0.08-0.70 6423) Eosinophil Abs (test code 0.28 K/uL 0.04-0.40 = 5521) Basophil Abs (test code = 0.04 K/uL 0.00-0.10 5069) IG Abs (test code = 5954) 0.01 K/uL 0.00-0.04 Lab Interpretation (test Abnormal code = 25005-2) MD To.XUL3448-07-75 20:08:41 Test Item Value Reference Range Interpretation Comments WBC (test code = 8034) 6.3 K/uL 4.0-11.0 RBC (test code = 6932) 3.86 See_Comment L [Aut omated message] The system [employer] generated this result transmitted ref erence range: 4.50 - 6 .00 M/uL. The refer ence range was not u sed to interpret this result as normal/abnor mal. Hgb (test code = 5898) 10.1 See_Comment L [Aut omated message] The system [employer] generated this result transmitted ref erence range: 14.0 - 1 8.0 gm/dL. The refe rence range was not u sed to interpret this result as normal/abnor mal. Hct (test code = 5860) 32.7 % 40.0-54.0 L MCV (test code = 6222) 85 fL 82-98 MCH (test code = 6220) 26.2 pg 27.0-31.0 L MCHC (test code = 6221) 30.9 See_Comment L [Au tomated message] The system [employer] generated this result transmitted ref erence range: 31.0 - 3 6.0 gm/dL. The refe rence range was not u sed to interpret this result as normal/abnor mal. RDW-SD (test code = 47.4 fL 35.1-46.3 H 6972) RDW-CV (test code = 15.5 % 12.0-15.5 6971) Platelet count (test 275 K/uL 140-440 code = 6832) MPV (test code = 6282) 12.0 fL 4.0-10.4 H INRBC (test code = 0.0 % See_Comment The INRBC (instrument 5974) NRBC) value ref lects the enumeration of nucleated red b lood cells contained in a 200uL sampleof whole blood analyzed by the instrument. Thi s value maydiffer from the NRBC value repo rted in a manual differential,wh ich is based on a 100 cell differential. [Automated mess age] The system [employer] generated this result transmitted ref erence range: <=0.0. T he reference range was not used to int erpret this result as normal/abnormal . Lab Interpretation Abnormal (test code = 87843-6) MD ToShae Interpretation Antibody Screen Hmkhybaq6481-40-32 14:21:53 Test Item Value Reference Range Interpretation Comments TMP Auto Neg At the present ABSC Interp time, patient (test code = plasma shows no ____ARGENIS THOMPSON 7535) evidence of RBC CHANDA Nix alloantibodies. Raza STANFORD jossue by: ARGENIS STANFORD,Dictated Date/Time: 9:21 AM CDT Transcribed Manpreet e/Time: 06.04.2021 9:21 AM CDTElectronical ly Signed By: ARGENIS GANT, on 06.04.2021 9 :21 AM Melodie Díaz Glucose Yzbran0138-32-60 20:05:40 Test Item Value Reference Interpretation Comments Range POC Glucose (test 125 mg/dL 70-99 H Capillary blood code = 46447-0) samples, e.g . obtained by fingerstick, ma y have inaccurate resu lts in patients with decreased perip heral blood flow. Met hod description: Al l results are magali sured using Electrochemistr y test methodology. Th e glucose in the sample mixes with the reagents on the test strip. The reac tion produces an renny ctric current. The am ount of current prod uced is proportional to the glucose concentration i n the blood. PO Sample Type (test Capillary code = 9554) Performing Lab (test [facility] [place] code = 82214) [facility] MD To Cli nical Lab, [address], [place] [address]; Furnace Utility Operator: Radha Verma MD Lab Interpretation Abnormal (test code = 64103-1) MD ToAntibody Xahkvp8708-29-48 19:35:55 Test Item Value Reference Range Interpretation Comments ABSC. (test code = 890-4) Negative ABSC MD ToEgqfnrruHPVVm1769-90-91 19:35:54 Test Item Value Reference Range Interpretation Comments ABORh. (test code = 882-1) A NEG MD ToClot Expiration Giyr9381-60-01 19:35:53 Test Item Value Reference Range Interpretation Comments T & S Expiration (test code = 06/06/2021 5318) MD ToTMP Interpretation Gnxpigouch3470-99-87 13:06:45 Test Item Value Reference Range Interpretation Comments TMP XM Interp RBC units (test code = crossmatched for 7566) transfusion appear ADR SOLE THOMPSON acceptable. ZHANE STANFORD,Dictated by: ARGENIS STANFORD,Dictated Date/Time: 8:06 AM CDT Transcribed Manpreet e/Time: 04.29.2021 8:06 AM CDTElectronical ly Signed By: STEPH STANFORD, on 8:06 AM Melodie Garcia RBC:ATC, 1 Qzjji1800-13-16 01:29:001[facility]annPrep[facility] RBC:ATC, 1 Nnvis5418-28-49 01:29:31790660193652Ahqrbzad HermannPrepare RBC:ATC, 1 Rgheh1353-62-20 01:29:89756Yncmsstz HermannPrepare RBC:ATC, 1 Wmogi1008-69-71 01:29:55013738577807Argwricf HermannPrepare RBC:ATC, 1 Yamgp7191-15-65 01:29:00 Test Item Value Reference Range Interpretation Comments PRBC Product Ready 1 Red Blood Cells (test code = Available - 72196-0) Order Form 03 when ready for product issue. Unit Number (test [id number] code = 7002) Product Code (test G1300Y13 code = 7003) Unit Expiration (test code = 397729) Unit Blood Type 600 (test code = 7004) Product Code Text RBCIRLR CPD AS1 (test code = 500mL 589807) Crossmatch Expiration Date (test code = 816355) Unit Irradiated IRRADIATED (test code = 561812) Dispense Status ISSUED (test code = 7001) Unit Blood Type A Negative (test code = 7005) Product Tipple Tender .BPAM ____ Location (test ___ code = 488917) ___ ____ MD ToRBC Product Ready for Pick Ml7966-71-04 01:13:50 Test Item Value Reference Range Interpretation Comments PRBC Product Ready B2 Blood Bank Product is ready for for Tipple Tender (test moss picker on April code = 093167) 2020 20:1 3:40 CDT. MD ToProtein/Creatinine Ratio Lpfoe5786-94-62 20:02:92314Lduprooy [place] Protein/Creatinine Ratio Zefin7731-45-94 20:02:3595.9[facility] Protein/Creatinine Ratio Gzufp3074-63-60 20:02:352.58[facility] HermannFree T4 2021-04-28 19:38:281.15[facility] XmebqcbSUU4442-64-67 19:38:251.69[facility] HermannUrinalysis with Blaczdaxrbx3486-86-33 19:29:042[facility] HermannUrinalysis with Uzibrwolgon4117-52-65 19:29:044[facility] HermannUrinalysis w/Microscopic if Udbxqhdlp6856-33-00 19:24:161.019[facility] HermannUrinalysis w/Microscopic if Btrqezvvp6774-46-89 19:24:165.0[facility] HermannGlomerular Filtration Rate 2021-04-28 19:23:5394[facility] HermannGlomerular Filtration Kslh2711-36-30 19:23:5381[facility] HermannTotal Lfunthn4439-03-51 19:23:528.2[facility] [place] Phosphorus Iaicr2045-42-41 19:23:514.3[facility] HermannMagnesium Xjakd5405-53-96 19:23:501.9[facility] DldgnfdFPB5393-77-71 19:23:51256Pdgoknbw HermannCalcium Wqwws3355-13-01 19:23:489.7[facility] HermannAlkaline Aviusclqdzq1957-71-33 19:23:10746Bpunjxgo HermannAlbumin Amfhz3443-79-76 19:23:462.8[facility] Aspartate Dulyvurppxqpmbih0119-77-41 19:23:4520[facility] ZgcrcmpIDQ1961-00-01 19:23:4426[facility] HermannElectrolyte Tzydt8623-13-35 19:23:69326Vxstbuga HermannElectrolyte Sigkq9296-93-79 19:23:435.3[facility] HermannElectrolyte Panel 2021-04-28 19:23:68404Qwjoquuk HermannElectrolyte Gzdcl6780-50-44 19:23:4325 [facility] HermannElectrolyte Bovsg0723-14-54 19:23:4310[facility].Serum Chmxesetec0818-54-94 19:23:421.04[facility] TcjljxvOXB0799-55-39 19:23:4127 [facility] HermannGlucose Uxurl1242-07-74 19:23:97829Drzfcvvf HermannDifferential 2021-04-28 19:07:2178.8[facility] KdonftmWhtxxhkqlizr1131-00-20 19:07:218.2 [facility] NmqhhffKweqtwhxexdg0645-23-07 19:07:2110.0[facility] HermannDifferential 2021-04-28 19:07:211.9[facility] DxjtlbqNrfgwbbaocqs7884-40-91 19:07:210.4[facility] IngxmbfIhchlpdrbfww5043-39-71 19:07:210.7[facility] PerdmxuIqsposkkectf0862-45-56 19:07:218.47[facility] QlnppleBrcjimvrnpfs7522-46-49 19:07:210.88[facility] [place] Teiqxndpverm8708-25-73 19:07:211.07[facility] MkfyrdqOghvjkdgrjfw0108-25-83 19:07:210.20[facility] CzjamwxQamoyfrzlwxs4835-19-47 19:07:210.04[facility] Hmrxccjvaibk0448-69-47 19:07:210.07[facility].RNT7106-47-78 19:07:1110.7 [facility].RNH2522-78-90 19:07:112.75[facility].SHB4935-02-20 19:07:117.7[facility].GOA7802-01-85 19:07:1126.3[facility] [place].[facility] 2021-04-28 19:07:1196[facility].NYY3696-96-03 19:07:11 Test Item Value Reference Range Interpretation Comments MCH (test code = MCH) 28.0 pg 27.0-31.0 [facility].NOK9063-46-88 19:07:1129.3[facility].EMF5710-01-54 19:07:1158.4[facility].IRA5361-24-17 19:07:1116.9[facility] 2021-04-28 19:07:46625Tvrgxduj [place].FJG6637-95-88 19:07:119.8[facility] [place] .QKO6507-60-17 19:07:110.0[facility] HermannPOC Glucose Mbqdrk6034-12-94 22:43:07 169[facility] HermannPOC Glucose Lhohui7659-95-33 22:43:69097Mqzaggwc HermannCRP 2021-03-23 19:38:16495.26[facility] VehtvtfUHT9831-99-00 19:38:85551.26[facility] HermannSed Bwnf6679-85-57 19:22:4892[facility] HermannSed Llyi1182-35-31 19:22:48 92[facility] HermannProtein/Creatinine Ratio Lsyuq8087-01-51 19:05:0972[facility] HermannProtein/Creatinine Ratio Jnvor4873-60-34 19:05:65774.5[facility] Protein/Creatinine Ratio Lgidi2628-84-48 19:05:090.66[facility] [place] Protein/Creatinine Ratio Clfvc2070-82-39 19:05:0972[facility] Protein/Creatinine Ratio Cbmtj9509-63-01 19:05:86437.5[facility] Protein/Creatinine Ratio Wazgl5994-45-27 19:05:090.66[facility] HermannUrinalysis with Rtzpnhcmjzc1836-03-23 18:56:492[facility] HermannUrinalysis with Microscopic 2021-03-23 18:56:492Mem[facility] HermannFree A31558-29-33 18:43:261.36[facility] HermannFree A19793-86-83 18:43:261.36[facility] BwowbdoNAG3853-67-81 18:43:255.84 [facility] LihraznVSB6284-32-62 18:43:255.84[facility] HermannUrinalysis w/Microscopic if Oqbzjbmwc6800-88-80 18:43:041.021[facility] HermannUrinalysis w/Microscopic if Dnviozexy2062-68-86 18:43:045.0[facility] HermannUrinalysis w/Microscopic if Kopxtjmlf0344-54-46 18:43:63203Ralkgoum HermannUrinalysis w/Microscopic if Orxotmiqw4224-47-31 18:43:041.021[facility] HermannUrinalysis w/Microscopic if Fekcoemwj3054-90-22 18:43:045.0[facility] HermannUrinalysis w/Microscopic if Jplmmwqwz2211-45-21 18:43:48195Shvaavca HermannGlomerular Filtration Pkki9613-13-28 18:30:3198[facility] HermannGlomerular Filtration Rate 2021-03-23 18:30:3185[facility] HermannGlomerular Filtration Hizz3078-61-08 18:30:3198[facility] HermannGlomerular Filtration Xziz0286-98-68 18:30:3185 [facility] HermannTotal Tlcohbb2082-38-53 18:30:307.5[facility] HermannTotal Protein 2021-03-23 18:30:307.5[facility] HermannPhosphorus Aupbo7522-24-79 18:30:294.7 [facility] HermannPhosphorus Uauhz4974-89-37 18:30:294.7[facility] HermannMagnesium Iksnf1391-72-96 18:30:281.7[facility] HermannMagnesium Ktyun1981-74-54 18:30:281.7 [facility] ExcctrlVIT1048-74-42 18:30:43203Ntwkbeaw KqtqjfwKJF2535-75-02 18:30:27 225[facility] HermannCalcium Jltgw6288-26-00 18:30:269.1[facility] HermannCalcium Imfux3411-18-52 18:30:269.1[facility] HermannAlkaline Kymsrtzouiq4643-06-08 18:30:54808Qyrlgdny HermannAlkaline Thgfkywqmam7919-69-71 18:30:79390Nffbssyq HermannAlbumin Mqszv8424-14-09 18:30:243.1[facility] HermannAlbumin Level 2021-03-23 18:30:243.1[facility] HermannAspartate Jaxixgrlbrbvdork6772-47-37 18:30:2329Mem[facility] HermannAspartate Zywhevmgoykmzgud1983-68-60 18:30:2329 [facility] HermannElectrolyte Fadkx6205-44-38 18:30:65761Vypnlxmd [place] Electrolyte Hksbo1919-22-65 18:30:225.1[facility] HermannElectrolyte Panel 2021-03-23 18:30:31711Akvgkkcn HermannElectrolyte Utprz1875-26-85 18:30:2226 [facility] HermannElectrolyte Dgkov8401-23-07 18:30:229[facility] HermannElectrolyte Dbrcj4304-83-98 18:30:48018Ynkxkhyt HermannElectrolyte Orllk9391-64-93 18:30:22 5.1[facility] HermannElectrolyte Wczaw9325-99-65 18:30:35697Dzjjoqdd Alexi Electrolyte Cmnca8022-78-35 18:30:2226[facility] HermannElectrolyte Panel 2021-03-23 18:30:229[facility] MjbnclrOBD1743-65-30 18:30:2143Mem[facility] HermannALT 2021-03-23 18:30:2143[facility].Serum Fpvqbmqycp1787-18-34 18:30:191.00 [facility] [place].Serum Djljdjdwuc5500-92-59 18:30:191.00[facility] HermannBUN 2021-03-23 18:30:1816[facility] TbmgikjIAW8231-29-86 18:30:1816[facility] [place] Glucose Oewdm4432-99-76 18:30:09418Hxlclyoo HermannGlucose Gogjw3747-00-38 18:30:32333Wgtcgmqu VhclfacZtcgvyoexijs8215-36-43 18:03:8.5[facility] Aenrmbcmunfo4271-52-03 18:03:208.5[facility] MkimdqxLvvhqvlewjvy6143-61-98 18:03:2009.8[facility] WsyjldbNslrwtdxruia6730-25-89 18:03:201.6[facility] [place] Gdlcfwjfuclw8693-03-77 18:03:200.3[facility] GfplocgMjzzbkuzxizp9896-83-69 18:03:200.3[facility] ZxatmjiWbshgsdwaoar4527-76-92 18:03:205.38[facility] [place] Bimpcqhjmggf9055-22-12 18:03:200.58[facility] JbvuspqXhjgcnrxvzts9522-74-49 18:03:200.74[facility] YrcddvlUertsugwfcho5692-51-88 18:03:200.11[facility] [place] Teqegdsmdjng0542-61-32 18:03:200.02[facility] WwcowviHmvifaaeykqh5942-32-09 18:03:200.02[facility] OcfjxstDhdzitpjxedl7760-50-60 18:03:2078.5[facility] Fhturzsrarhh3213-20-88 18:03:208.5[facility] KgmlouvSjvccdntczmm7903-90-70 18:03:2010.8[facility] AtvnvnnCooekeyqbtuk9427-51-75 18:03:201.6[facility] Zvcbqbubbbko0541-15-11 18:03:200.3[facility] RqocmdcQabdnnkohvfj0159-25-45 18:03:200.3[facility] BiwqrozJcjehcbreetb2907-40-81 18:03:205.38[facility] Duwfbcotyvev7636-20-35 18:03:200.58[facility] FuilcpdDztqqeynntva3598-79-89 18:03:200.74[facility] IsmrzgsYxcitwphmmaq1132-57-07 18:03:200.11[facility] Euwegsdhcjur2139-38-37 18:03:200.02[facility] XecnddxZlqlpjixvbkm9180-37-68 18:03:200.02[facility].BVT5835-97-25 18:03:156.9[facility] [place].[facility] 2021-03-23 18:03:153.71[facility].OQR0378-96-68 18:03:1511.4[facility] [place].NMH5749-86-45 18:03:1537.0[facility] [place].YUG2061-68-86 18:03:63755 [facility] [place].AOE7079-07-25 18:03:15 Test Item Value Reference Range Interpretation Comments MCH (test code = MCH) 30.7 pg 27.0-31.0 [facility].WQO0872-49-75 18:03:1530.8[facility].REP9723-66-04 18:03:1557.0[facility] [place].MMN0194-90-29 18:03:1515.5[facility] [place].[facility] 2021-03-23 18:03:01603Saiurrqr Alexi.SDG2204-11-87 18:03:1510.5[facility].PVA9519-79-66 18:03:150.0[facility].ENH6677-36-23 18:03:156.9 [facility].ZBZ3707-64-04 18:03:153.71[facility] [place].SHN0616-81-06 18:03:1511.4[facility] [place].MFP1030-18-64 18:03:1537.0[facility] [place].[facility] 2021-03-23 18:03:41061Kxvmnnml [place].MCR9815-84-04 18:03:15 Test Item Value Reference Range Interpretation Comments MCH (test code = MCH) 30.7 pg 27.0-31.0 [facility].YLJ0115-13-46 18:03:1530.8[facility] [place].IXG3559-36-57 18:03:1557.0[facility] [place].PCS6081-06-01 18:03:1515.5[facility] 2021-03-23 18:03:07779Bhaocmqi Alexi.IKR1520-69-59 18:03:1510.5[facility].GZJ2821-18-85 18:03:150.0[facility] HermannAlk Phos Total and Iso 2021-02-07 20:12:50812Dzvxutze HermannAlk Phos Total and Oax0784-60-27 20:12:55 59.9[facility] HermannAlk Phos Total and Nnb9433-61-52 20:12:5590.4[facility] HermannAlk Phos Total and Xju2729-06-91 20:12:5512.2[facility] HermannAlk Phos Total and Lad8223-21-71 20:12:5518.4[facility] HermannAlk Phos Total and Iso 2021-02-07 20:12:5527.9[facility] HermannAlk Phos Total and Kuq7393-24-98 20:12:55 42.1[facility] HermannAlk Phos Total and Khu4572-45-06 20:12:550[facility] Alk Phos Total and Rvq9870-19-96 20:12:550[facility] HermannAlk Phos Total and Iso 2021-02-07 20:12:61163Weccwiyl HermannAlk Phos Total and Juz6953-65-14 20:12:55 59.9[facility] HermannAlk Phos Total and Fej1861-87-06 20:12:5590.4[facility] HermannAlk Phos Total and Tqu2579-88-39 20:12:5512.2[facility] HermannAlk Phos Total and Xlh5814-22-34 20:12:5518.4[facility] HermannAlk Phos Total and Iso 2021-02-07 20:12:5527.9[facility] HermannAlk Phos Total and Kuo0563-13-28 20:12:55 42.1[facility] HermannAlk Phos Total and Cnr5930-35-86 20:12:550[facility] Alk Phos Total and Lwi2613-40-60 20:12:550[facility] HermannAlk Phos Total and Iso 2021-02-07 20:12:55 Test Item Value Reference Range Interpretation Comments Alk Phos-[place] (test 151 See_Comment H [Automa jossue message] code = 6768-6) The system [facility] generated this result transmit jossue reference range : 40 - 129 unit/L. T he reference range was not used to interpret this result as normal/abnormal . Liver 1% (Alk 59.9 % 27.8-76.3 Phos)-[place] (test code = 87294-8) Liver 1 (Alk Phos)-[place] 90.4 See_Comment H [Au tomated message] (test code = 10728-2) The sy stem which generated this result transmit jossue reference range : 16.2 - 70.2 IntlUnit/L. The reference range was not used to interpret this result as normal/abnormal . Liver 2% (Alk 12.2 % 0.0-8.0 H Phos)-[place] (test code = 83715-7) Liver 2 (Alk Phos)-[place] 18.4 See_Comment H [Au tomated message] (test code = 82545-5) The sy stem which generated this result transmit jossue reference range : 0.0 - 5.8 IntlUnit/ L. The reference r sheng was not used to interpret this result as normal/abnormal . Bone % (Alk Phos)-[place] 27.9 % 19.1-67.7 (test code = 53092-5) Bone (Alk Phos)-[place] 42.1 See_Comment [Autom ated message] (test code = 1777-2) The sys tem which generated this result transmit jossue reference range : 12.1 - 42.7 IntlUnit/L. The reference range was not used to interpret this result as normal/abnormal . Intestine % (Alk 0 % 0.0-20.6 Phos)-[place] (test code = 47449-7) Intestine (Alk 0 See_Comment [Automated m essage] Phos)-[place] (test code = The system which 177-0) generated this result transmit jossue reference range : 0.0 - 11.0 IntlUnit /L. The reference r sheng was not used to interpret this result as normal/abnormal . Placental ((Alk NotPresent Not present Test Perfor med Phos)-[place] (test code = by:Ellyn [facility] 85437-1) Laboratories - [address] [address] Direct or: Moody oates M.D. Ph.D.; CLI A# [id number] Lab Interpretation Abnormal (test code = 25850-6) MD ToProthrombin Time with EUW8172-47-54 21:58:2214.6[facility] Prothrombin Time with CXM8020-11-63 21:58:221.22[facility] HermannProthrombin Time with MJP3579-41-38 21:58:2214.6[facility] HermannProthrombin Time with INR 2021-02-02 21:58:221.22[facility] HermannProthrombin Time with SDN3692-24-60 21:58:22 Test Item Value Reference Range Interpretation Comments PT (test code = 6746) 14.6 See_Comment H Repeat ed and Verified [Automated message] The system which generated this result transmitted reference range : 11.5 - 13.9 second(s). The reference range was not used to interpret this result as normal/abnormal . INR (test code = 1.22 0.90-1.10 H Repeated an d 5973) Verified RANDI (test code = RANDI) This lab cannot be scheduled at the following locations due to collection/procc essing restrictions: [facility] and [facility]. Lab Interpretation Abnormal (test code = 97268-6) MD ToOxqdqihgVlY9127-77-68 17:19:570844ZmlimjghH[facility] BrownwoodKvfydoxCzE9021-14-37 17:19:959577 [facility] BrownwoodVvmcfdaAmN3844-62-90 17:19:50 Test Item Value Reference Range Interpretation Comments IgG (test code = 6001) 1633 mg/dL 610-1616 H Lab Interpretation (test code = Abnormal 52623-5) MD To[U] XRAY TIBIA FIBULA 2 VWS RIGHT [id number] 08:09:00 Test Item Value Reference Range Interpretation [...] calcifications. 11/17/2020 5:41 PM CDT Ervin Landry [facility] PhysiciansMR Femur w/wo contrast [id number] 12:30:00 PROCEDURE INFORMATION:Exam: MR Right Lower Extremity Without and [...] hamstring musculature.Panchito Biswas MD On 11/05/2020 08:46:08; [id number]--Imcr by: Yajaira Biswas MDDictated Date/time: 11/05/20 08:46Electronically Signed by: Panchito Biswas 11/06/2107:46[facility]PORTUnSt[facility] Knee w/wo contrast [id number] 11:15:00PROCEDURE INFORMATION:Exam: MR Right Lower Extremity Joint [...] 1.4 x 0.9 x 1.0 cm (series [id number], image15). Thisdemonstrates questionable mild enhancement on postcontrast [...] subcutaneous edema.Yoni Sagastume MD On 11/05/2020 09:12:13; [id number]--Hrmq by: Yoni Sagastume MDDictated Date/time: 11/05/20 09:12Electronically Signed by: Yoni Sagastume MD 11/05/2108:12FINAL REPORTUnSt. [facility] Tib Fib w/wo contrast [id number] 09:45:00PROCEDURE INFORMATION:Exam: MR Right Lower Extremity Without [...] fluidcollections.IMPRESSION:1. Intramedullary lesion in the distal tibial diaphysis suggestive ofmetastatic disease. Possible additional tiny lesion in the proximal tibialmetadiaphysis. No pathologic fractures.2. Nonspecific subcutaneous edema about the calf. Diffuse muscle atrophy.Panchito Biswas MD On 11/05/2020 08:56:52; [id number]--Xecx by: Panchito Biswas MDDictated Date/time: 11/05/20 08:57Electronically Signed by: Panchito Biswas 11/06/2107:57FINAL REPORT [facility][U] XRAY FEMUR 2 VWS RIGHT [id number] 10:59:00 Test Item Value Reference Range Interpretation Comments XR FEMUR 2 VWS EXAM: XR TIBIA FIBULA 2 RIGHT (test code = VWS RIGHT, XR FEMUR 2 VWS XR FEMUR 2 VWS RIGHT DATE: 10/06/2020 1:06 RIGHT) PM [employer]IV[employer] INDICATION: Metastatic renal cell carcinoma to bone [...] femur diaphyseal pathologic fracture. 10/06/2020 4:10 PM [employer] RIV[employer]ER Keny Melo [facility][U] XRAY TIBIA FIBULA 2 VWS RIGHT [id number] 10:59:00 Test Item Value Reference Range Interpretation Comments XR TIBIA FIBULA 2 EXAM: XR TIBIA FIBULA 2 VWS RIGHT (test VWS RIGHT, XR FEMUR 2 VWS code = XR TIBIA RIGHT DATE: 10/06/2020 1:06 FIBULA 2 VWS RIGHT) PM [employer] RIVETER INDICATION: Metastatic renal cell carcinoma to bone [...] femur diaphyseal pathologic fracture. 10/06/2020 4:10 PM [facility] RIV[employer] Keny Melo [facility] PhysiciansGlucose, [id number] 19:20:43598Jjjodhnn HermannGlucose, [id number] 19:20:47687Hvdhobnz HermannGlucose, Random 2020-09-29 19:20:40 Test Item Value Reference Range Interpretation Comments Glucose Random (test 122 mg/dL 70-199 Effecti ve 03/22/16, the code = 9360) glucose referen ce intervals have been updated based o n [place] [employer] giancarlo delines (Standards of [...] risk for diabetes Testin g Performed at [facility] Abstract Writer Bldg, [address], [place] [address] AndersonUric [id number] 19:20:387.5[facility] HermannUric [id number] 19:20:387.5[facility] HermannUric [id number] 19:20:38 Test Item Value Reference Range Interpretation Comments Uric Acid (test code = 7.5 mg/dL 3.4-7.0 H Testi ng Performed at [address] [facility], [address], [address], [place] [address] Lab Interpretation (test Abnormal code = 68054-2) MD To[QL] CULTURE, AEROBIC AND ANAEROBIC W/GRAM [id number] 00:00:00 Test Item Value Reference Range Interpretation Comments CULTURE (test See Comment A CULTURE, AEROB IC BACTERIA code = CULTURE) Micro Nu mber: [id number] Test Status: Final Speci men Source: RIGHT [...] Reported NN = See Ther apy Comments [facility]iciansMD COVID-19 (PHUONG-CoV-2) PCR [id number] 00:50:02 Test Item Value Reference Range Interpretation Comments COVID19 SARS Pre-Radiation Therapy Indication (test code = 27213) COVID19 SARS Result Not Detected Not Detected (test code = 24922-9) COVID19 SARS SARS-CoV-2 NOT Interpretation (test Detected. Reference code = 28522) Range: Not Detected Methodology: The MD To High-throughput SARS-CoV-2 RT-PCR Assay is a qualitative [...] CLIA-certified, high-complexity Molecular Diagnostics Laboratory (MDL) at [facility] for clinical use under the Food and Drug Administration (FDA) s Emergency Use Authorization. Factsheet for patients: https://www.[facility]. org/AGMMN39AILOgrjmtngE actsheet for healthcare providers: https://www.[facility]. org/LWJMW72YWRGYK Test performed by:[facility] Diagnostic [id number] [place] [address] MD ToAnion [id number] 15:32:436[facility] HermannAnion [id number] 15:32:436[facility] HermannChloride [id number] 15:32:68038Aheuobfm Alexi Chloride [id number] 15:32:07030Uoyzwvyd KgtloooRafqyyncj7984-15-70 15:32:40 5.3[facility] RrkvesxUcxdigxly4193-68-37 15:32:405.3[facility] HermannSodium Level 2020-09-03 15:32:13601Qniwwvcz HermannSodium Mcfjc6609-28-38 15:32:80129Ifqagfeg HermannCarbon Dioxide Yqbpc7781-36-38 15:32:3722[facility] HermannCarbon Dioxide Taoda9634-81-00 15:32:3722[facility] HermannThiopurine Fvdjfektfyyrqcrfc8071-28-77 02:26:1728[facility] HermannThiopurine Aqwpeypxmqmfvedur3381-28-56 02:26:1728 [facility] HermannAlpha 1 Bglctnceddji4600-66-54 21:00:26825Xxbbgojv HermannAlpha 1 Imxeysrrbyrb2476-10-83 21:00:97539Yomvypia OlqnosyCrI7933-09-06 16:00:2780 [facility] WwwectbFoE9122-84-64 16:00:2780[facility] LoegcgrCiP7775-54-83 16:00:25 438[facility] DredxnyAtB3826-57-29 16:00:77038Lofwdhsf HermannTransferrin with COTR2687-19-93 20:34:21527Klxuaznp HermannTransferrin with GKRV3254-55-86 20:34:20040Ihstipxr HermannTransferrin with PIBF8330-13-76 20:34:01956Vvysdazd HermannTransferrin with PZOA2689-22-29 20:34:71767Aloegsro HermannIron Level 2020-08-06 20:34:4356Memorial HermannIron Vakme2896-19-27 20:34:4356[facility] HermannFerritin Hdjdk0378-74-01 20:25:0373[facility] HermannFerritin Level 2020-08-06 20:25:0373[facility] IuhykgxPED6220-16-94 20:19:0260[facility] HermannGGT 2020-08-06 20:19:0260[facility] [place][U] XRAY FEMUR 2 VWS RIGHT [id number] 08:04:00 Test Item Value Reference Range Interpretation Comments XR FEMUR 2 VWS EXAM: XR FEMUR 2 VWS RIGHT RIGHT (test code = DATE: 07/14/2020 9:23 AM XR FEMUR 2 VWS BUTTON RIVETER INDICATION: RIGHT) Pathological fracture of right femur [...] evidence of hardware complication. 07/14/2020 10:56 AM [facility] RIV[facility] Hw8782-91-51 14:08:000[facility] [place] Insulin Sn0598-36-62 14:08:000[facility] HermannIslet Antigen 2 (IA-2) Antibody 2020-06-23 13:14:050Mem[facility] HermannIslet Antigen 2 (IA-2) Anksxlse2362-28-73 13:14:050[facility] HermannGAD Ab Pdgiu1821-59-74 15:47:060[facility] HermannGAD Ab Kzwjz2067-11-63 15:47:060[facility] HermannCytokine Panel 20:56:015 [facility] HermannCytokine Panel 20:56:0138[facility] HermannCytokine Panel 20:56:015[facility] HermannCytokine Panel 20:56:0138 [facility] MtlgdfeRRJP8644-78-76 23:28:0130[facility] XvpdiabXJIP9066-26-69 23:28:01 30[facility] HermannInsulin Level, Rcopd6020-21-72 20:16:47529.0[facility] Alexi Insulin Level, Kpxpr8480-97-04 20:16:04618.0[facility] HermannCortisol, Total 2020-06-18 19:57:588.56Mem[facility] HermannCortisol, Lvfsq3585-02-67 19:57:588.56 [facility] HermannC Yxwpchf5098-14-18 19:36:488.48[facility] HermannC Peptide 2020-06-18 19:36:488.48[facility] HermannCreatine Nlfpxu1615-07-73 19:33:96467 [facility] HermannCreatine Ohwxwt4239-08-54 19:33:04578Ezcqcjpz HermannLipase Zmzdw6223-67-01 16:31:0421[facility] HermannLipase Kvvpq8738-19-76 16:31:0421 [facility] HermannAmylase Mwulp6854-92-28 16:31:0336[facility] HermannAmylase Level 2020-06-18 16:31:0336Memorial HermannPost Op Promis 29 Ckchyu8888-83-16 15:36:57 Test Item Value Reference Range Interpretation Comments Pain Interference: (test code = Pain 52.2 1 N Interference:) Pain Intensity: (test code = Pain 35.8 1 N Intensity:) Physical Function: (test code = 38.9 1 N Physical Function:) Satisfaction Role: (test code = 45.8 1 N Satisfaction Role:) [facility][U] XRAY FEMUR 2 VWS RIGHT [id number] 08:05:00 Test Item Value Reference Range Interpretation [...] 1:36 PM CDT Tim De La Vega [facility][QL] SED RATE BY NATHAN DILLFKWZLBUDFN0122-55-59 13:39:00 Test Item Value Reference Range Interpretation Comments SED RATE BY NATHAN DILL (test 58 mm/h < OR = 20 code = SED RATE BY NATHAN DILL) [facility][QL] CBC (INCLUDES DIFF/PLT)2020-01-01 13:39:00 Test Item Value Reference Range Interpretation Comments WHITE BLOOD CELL COUNT 8.2 {Thousand/u} 3.8-10.8 N (test code = WHITE BLOOD CELL COUNT) RED BLOOD CELL COUNT (test 3.40 {Million/uL} 4.20-5.80 code = RED BLOOD CELL COUNT) HEMAGLOBIN; Below Low 10.1 g/dl 13.2-17.1 Threshold (test code = 26967-0) HEMATOCRIT; Below Low 31.5 % 38.5-50.0 Threshold (test code = 4544-3) MCV; Normal (test code = 92.6 fL 80.0-100.0 N 787-2) MCHC; Normal (test code = 32.1 g/dl 32.0-36.0 N 45212-4) RDW; Above High Threshold 15.2 % 11.0-15.0 (test code = 788-0) PLATELET COUNT; Normal 357 {Thousand/u} 140-400 N (test code = 777-3) MPV; Normal (test code = 10.3 fL 7.5-12.5 N 24382-2) ABSOLUTE NEUTROPHILS (test 5568 {cells/uL} 5539-1326 N code = ABSOLUTE NEUTROPHILS) ABSOLUTE LYMPHOCYTES [...] Normal (test 11.0 % N code = 00971-8) EOSINOPHILS; Normal (test 5.4 % N code = 66162-3) BASOPHILS; Normal (test 0.6 % N code = 81843-4) [facility][QL] C-REACTIVE GHMDGLO6030-24-33 13:37:00 Test Item Value Reference Range Interpretation Comments C-REACTIVE PROTEIN (test code = 26.2 mg/L <8.0 C-REACTIVE PROTEIN) [facility][U] XRAY FEMUR 2 VWS RIGHT [id number] 08:14:00 Test Item Value Reference Range Interpretation Comments XR FEMUR 2 VWS EXAM: XR FEMUR 2 VWS RIGHT RIGHT (test code = DATE: 07/30/2019 9:08 AM BUTTON RIVETER XR FEMUR 2 VWS INDICATION: Draining RIGHT) [...] region status post remaining. 07/30/2019 9:31 AM BUT[employer] RIVETER [facility][U] XRAY FEMUR 2 VWS RIGHT [id number] 07:57:00 Test Item Value Reference Range Interpretation [...] status post remaining. 04/30/2019 10:58 AM CDT [facility] PhysiciansPost Op Promis 29 Wtglsy8192-51-49 21:04:50 Test Item Value Reference Range Interpretation Comments Pain Interference: (test code = Pain 56 1 N Interference:) Pain Intensity: (test code = Pain 42.6 1 N Intensity:) Physical Function: (test code = 36 1 N Physical Function:) Satisfaction Role: (test code = 47.4 1 N Satisfaction Role:) [facility][U] XRAY FEMUR 2 VWS RIGHT [id number] 08:38:00 Test Item Value Reference Range Interpretation [...] femur fracture. 03/05/2019 5:22 PM CDT Keny Melo [facility][U] XRAY FEMUR 2 VWS RIGHT [id number] 16:32:00 Test Item Value Reference Range Interpretation [...] by intramedullary clarita. 01/02/2019 8:44 AM CDT [facility]] CBC (INCLUDES DIFF/PLT)2018-12-04 10:39:01 Test Item Value Reference Range Interpretation Comments WBC (test code = 6690-2) 6.1 {K/CMM} 3.7-10.4 RBC; Below Low Threshold (test 3.58 {M/CMM} 4.70-6.10 code = 789-8) Hgb; Below Low Threshold (test 11.1 g/dl 14.0-18.0 code = 718-7) Hct; Below Low Threshold (test 34.7 % 42.0-54.0 code = 66645-6) MCV; Above High Threshold (test 97.0 fL 80.0-94.0 code = 787-2) MCH (test code = 785-6) 31.0 pg 27.0-31.0 MCHC; Below Low Threshold (test 31.9 g/dl 32.0-36.0 code = 786-4) RDW; Above High Threshold (test 15.6 % 11.5-14.5 code = 788-0) Platelet (test code = 92968-5) 382 {K/CMM} 133-450 Mean Platelet Volume (test code 8.2 fL 7.4-10.4 = 28597-8) [facility]] Pxcvewadjzhv6229-51-00 10:39:01 Test Item Value Reference Range Interpretation Comments Segmented Neutrophils (test code 60.0 % 45.0-75.0 = 66115-6) Monocytes (test code = 37286-7) 11.7 % 2.0-12.0 Lymphocytes; Below Low Threshold 18.4 % 20.0-40.0 (test code = 95551-1) Eosinophils; Above High Threshold 8.7 % 0.0-4.0 (test code = 76803-6) Basophils; Above High Threshold 1.2 % 0.0-1.0 (test code = 706-2) Segs-Bands # (test code = 3.7 {K/CMM} 1.5-8.1 81492-0) Lymphocytes # (test code = 1.1 {K/CMM} 1.0-5.5 61598-3) Monocytes # (test code = 42230-0) 0.7 {K/CMM} 0.0-0.8 Eosinophils # (test code = 0.5 {K/CMM} 0.0-0.5 44843-0) Basophils # (test code = 71923-6) 0.1 {K/CMM} 0.0-0.2 [facility][H] CRP, hs, Cardiac Zzac2100-73-77 10:39:01 Test Item Value Reference Range Interpretation Comments C-Reactive Protein High 18.5 mg/L Low Risk: Sensitivity (test code = < 1.0 mg/LAverage 34241-0) Risk: 1.0 - 3.0 mg/LHigh Risk: >3.0 mg/LInflammatio n: >10.0 mg/L [facility][QLH] SED RATE BY MODIFIED YEEVSDHTAF1408-97-46 10:39:01 Test Item Value Reference Range Interpretation Comments Sedimentation Rate; Above High 70 {mm/hr} 0-15 Threshold (test code = 83498-8) [facility][U] XRAY FEMUR 2 VWS RIGHT [id number] 07:49:00 Test Item Value Reference Range Interpretation [...] complications. 12/04/2018 2:48 PM CDT Brea Kidd [facility]iciansPost Op Promis 29 Jmycsg3168-25-96 07:09:41 Test Item Value Reference Range Interpretation Comments Pain Interference: (test code = Pain 57.3 1 N Interference:) Pain Intensity: (test code = Pain 43.8 1 N Intensity:) Physical Function: (test code = 34.6 1 N Physical Function:) Satisfaction Role: (test code = 45.8 1 N Satisfaction Role:) [facility][U] XRAY FEMUR 2 VWS RIGHT [id number] 07:29:00 Test Item Value Reference Range Interpretation [...] present. 11/06/2018 5:47 PM CDT Eusebio Galindo [facility][U] XRAY FEMUR 2 VWS RIGHT [id number] 08:49:00 Test Item Value Reference Range Interpretation Comments XR FEMUR 2 VWS EXAM: XR FEMUR 2 VWS RIGHT RIGHT (test code DATE: 09/25/2018 10:22 AM BUTTON RIVETER = XR FEMUR 2 VWS INDICATION: Metastatic [...] pathologic subtrochanteric femur fracture. 09/25/2018 1:18 PM BUTTON RIVETER Keny Melo [facility]iciansCT Femur w and wo contrast [id number] 13:08:00 Test Item Value Reference Range Interpretation Comments Femur w and wo contrast Cancel Reason: Exam CT (test code = Femur w Replaced and wo contrast CT) [facility] Fem[facility] with contrast [id number] 13:08:00 EXAM: CT RIGHT FEMUR WITH CONTRASTDATE: [...] 10:17Electronically Signed by: Alphonse Mckee MD 09/15/1909:31[facility]Un[facility]] XRAY FEMUR 2 VWS RIGHT [id number] 09:27:00 Test Item Value Reference Range Interpretation [...] identified. 06/29/2018 8:26 AM CDT Keny Melo [facility][U] XRAY FEMUR 2 VWS RIGHT [id number] 11:11:00 Test Item Value Reference Range Interpretation [...] identified. 05/10/2018 4:41 PM CDT Keny Melo [facility][U] XRAY FEMUR 2 VWS RIGHT [id number] 13:36:00 Test Item Value Reference Range Interpretation [...] fracture. 03/29/2018 4:55 PM CDT Keny Melo [facility][QLH] URINALYSIS, COMPLETE W/REFLEX TO CULTURE 2017-12-17 13:51:01 Test Item Value Reference Range Interpretation Comments UA Color (test code = 5778-6) Yellow Yellow UA Turbidity (test code = Clear Clear 97478-1) UA Spec Grav (test code = 5810-7) 1.025 1 <=1.030 UA pH (test code = 5803-2) 6.0 1 5.0-8.0 UA Protein; Abnormal (test code = >=300 Negative A 63061-9) UA Glucose (test code = 26779-0) Negative Negative UA Ketones; Abnormal (test code = Trace Negative A 86821-6) UA Bili (test code = 5770-3) Negative Negative UA Blood (test code = 5794-3) Negative Negative UROBILINOGEN (test code = 0.2 {EU/DL} 0.1-1.0 99659-9) UA Nitrite (test code = 5802-4) Negative Negative UA Leuk Est (test code = 5799-2) Negative Negative UA RBC (test code = 98468-3) 0-2 0-2 UA WBC (test code = 40624-1) 0-2 None Seen UA Bacteria (test code = 17388-8) Occasional None Seen UA Sq Epi (test code = 81474-4) Occasional Few [facility]] CBC (INCLUDES DIFF/PLT)2017-12-17 13:51:01 Test Item Value Reference Range Interpretation Comments WBC (test code = 6690-2) 6.6 {K/CMM} 3.7-10.4 RBC; Below Low Threshold (test 4.53 {M/CMM} 4.70-6.10 code = 789-8) Hgb; Below Low Threshold (test 13.2 g/dl 14.0-18.0 code = 718-7) Hct; Below Low Threshold (test 39.0 % 42.0-54.0 code = 82585-7) MCV (test code = 787-2) 86.0 fL 80.0-94.0 MCH (test code = 785-6) 29.0 pg 27.0-31.0 MCHC (test code = 786-4) 33.7 g/dl 32.0-36.0 RDW; Above High Threshold (test 14.6 % 11.5-14.5 code = 788-0) Platelet (test code = 22049-1) 329 {K/CMM} 133-450 Mean Platelet Volume (test code 9.0 fL 7.4-10.4 = 20880-6) [facility]] [id number] 13:51:01 Test Item Value Reference Range Interpretation Comments Segmented Neutrophils (test code 71.0 % 45.0-75.0 = 30029-2) Monocytes (test code = 45567-1) 10.4 % 2.0-12.0 Lymphocytes; Below Low Threshold 11.0 % 20.0-40.0 (test code = 79071-4) Eosinophils; Above High Threshold 6.9 % 0.0-4.0 (test code = 49362-0) Basophils (test code = 706-2) 0.7 % 0.0-1.0 Segs-Bands # (test code = 4.7 {K/CMM} 1.5-8.1 24440-0) Lymphocytes #; Below Low 0.7 {K/CMM} 1.0-5.5 Threshold (test code = 10152-4) Monocytes # (test code = 41593-7) 0.7 {K/CMM} 0.0-0.8 Eosinophils # (test code = 0.5 {K/CMM} 0.0-0.5 68118-7) [facility]] [id number] 13:51:01 Test Item Value Reference Range Interpretation Comments Lactate Dehydrogenase (test code = 190 u/l 98-192 2532-0) [facility]] [id number] 13:51:01 Test Item Value Reference Range Interpretation Comments Magnesium Level (test code = 2.0 mg/dl 1.8-2.4 86016-0) [facility]] PHOSPHATE ( PHOSPHORUS)2017-12-17 13:51:01 Test Item Value Reference Range Interpretation Comments Phosphorus Level (test code = 3.3 mg/dl 2.5-4.5 2777-1) [facility]] TSH, 3RD [id number] 13:51:01 Test Item Value Reference Range Interpretation Comments TSH (test code = 86911-6) 1.680 {uIU/ml} 0.360-3.740 [facility]] URIC [id number] 13:51:01 Test Item Value Reference Range Interpretation Comments Uric Acid (test code = 3084-1) 8.0 mg/dl 3.8-8.0 [facility]] CMP [id number] 13:51:01 Test Item Value Reference Range Interpretation Comments Sodium Level 136 {mEq/l} 135-145 (test code = 2951-2) Potassium Level 4.5 {mEq/l} 3.5-5.1 (test code = 2823-3) Chloride Level 100 {mEq/l} 95-109 (test code = 2075-0) Carbon Dioxide 26 {mEq/l} 24-32 (test code = 2027-9) AGAP (test code = 14.5 {mEq/l} 10.0-20.0 82711-9) Glucose Lvl; 285 mg/dl 70-99 Adult reference range Above High values reflect the Threshold (test clinical giancarlo delinesof the code = 2345-7) [place] [employer]. Creatinine Lvl; 1.56 mg/dl [...] g/dl 2.7-4.2 High Threshold (test code = 19843-5) A/G Ratio; Below 0.6 1 0.7-1.6 Low Threshold (test code = 1759-0) Calcium Level 9.3 mg/dl 8.5-10.5 Total (test code = 84500-6) ALT; Above High 75 u/l 0-65 Threshold (test code = 1743-4) AST (test code = 31 u/l 0-37 31904-0) Alk Phos; Above 155 u/l 39-136 High Threshold (test code = 1783-0) Bili Total; Below 0.1 mg/dl 0.2-1.3 Low Threshold (test code = 1975-2) eGFR (test code = 51 The eGFR i s calculated 16152-2) {ML/MIN/1.7} using the CKD-E PI formula. In [...] National Kidney Disease Education Progr am(NKDEP) which additiona lly recommends that when the eGFR is used in patientswith ex tremes of body mass index for purposes of lucia g dosing, the eGFR should be multiplied by t he estimated BMI. [facility]] LIPID [id number] 13:51:01 Test Item Value Reference Range Interpretation Comments Chol; Above High 269 mg/dl <=199 Threshold (test code = 2093-3) Trig; Above High 483 mg/dl <=149 Threshold (test code = 2571-8) HDL Cholesterol; 35 mg/dl >=61 Below Low Threshold (test code = 2085-9) CHD Risk; Above 7.69 1 4.00-7.30 High Threshold (test code = 57595-0) LDL (test code = See Note <=99 [place] [address]-9) calculated due to very high triglyceri hector (>400mg/dL). Re commend Direct LDL if c linically indicated. VLDL (test code = See Note VLDL - Cho lesterol level VLDL) cannot be accur ately calculated due to very hightriglycerid es (>400 mg/dL). [facility]] HEMOGLOBIN [id number] 13:51:01 Test Item Value Reference Range Interpretation Comments Hemoglobin A1c; Above High Threshold 7.8 % <=5.6 (test code = 4548-4) [facility]] C-REACTIVE [id number] 13:51:01 Test Item Value Reference Range Interpretation Comments CRP (test code = CRP) 15.4 mg/L <=2.9 [facility]] T4, [id number] 13:51:01 Test Item Value Reference Range Interpretation Comments T4 Free (test code = 3024-7) 0.96 ng/dl 0.76-1.46 [facility]] SED RATE BY MODIFIED [id number] 13:51:01 Test Item Value Reference Range Interpretation Comments Sedimentation Rate; Above High 55 {mm/hr} 0-15 Threshold (test code = 16821-7) [facility]] T3, [id number] 13:51:01 Test Item Value Reference Range Interpretation Comments T3 Total (test code = 3053-6) 0.95 ng/ml 0.60-1.81 [facility]] URINALYSIS, COMPLETE W/REFLEX TO CULTURE 2017-11-20 14:09:01 Test Item Value Reference Range Interpretation Comments URINALYSIS, COMPLETE Cancel Reason: Ordered W/REFLEX TO CULTURE In Error (test code = URINALYSIS, COMPLETE W/REFLEX TO CULTURE) [facility]] C-REACTIVE [id number] 14:09:01 Test Item Value Reference Range Interpretation Comments CRP (test code = CRP) Cancel Reason: Ordered In Error [facility]] CBC (INCLUDES DIFF/PLT)2017-11-20 14:09:01 Test Item Value Reference Range Interpretation Comments CBC (INCLUDES Cancel Reason: Ordered DIFF/PLT) (test code In Error = CBC (INCLUDES DIFF/PLT)) [facility]] CMP [id number] 14:09:01 Test Item Value Reference Range Interpretation Comments CMP (test code = CMP) Cancel Reason: Ordered In Error [facility]] [id number] 14:09:01 Test Item Value Reference Range Interpretation Comments Lactate Dehydrogenase Cancel Reason: (test code = 2532-0) Ordered In Error [facility]] LIPID [id number] 14:09:01 Test Item Value Reference Range Interpretation Comments Lipid Panel w/c LDL Cancel Reason: Ordered (test code = Lipid In Error Panel w/c LDL) [facility]] [id number] 14:09:01 Test Item Value Reference Range Interpretation Comments Magnesium Level (test Cancel Reason: code = 57749-7) Ordered In Error [facility]] PHOSPHATE ( PHOSPHORUS)2017-11-20 14:09:01 Test Item Value Reference Range Interpretation Comments Phosphorus Level (test Cancel Reason: code = 2777-1) Ordered In Error [facility]] SED RATE BY MODIFIED [id number] 14:09:01 Test Item Value Reference Range Interpretation Comments SED RATE BY MODIFIED Cancel Reason: ANIYAH (test code = Ordered In Error SED RATE BY MODIFIED WESTERGREN) [facility]] T3, [id number] 14:09:01 Test Item Value Reference Range Interpretation Comments T3 Total (test code = Cancel Reason: Ordered 3053-6) In Error [facility]] T4, [id number] 14:09:01 Test Item Value Reference Range Interpretation Comments T4 Free (test code = Cancel Reason: Ordered 3024-7) In Error [facility]] TSH, 3RD [id number] 14:09:01 Test Item Value Reference Range Interpretation Comments TSH (test code = Cancel Reason: Ordered 51313-6) In Error [facility]] URIC [id number] 14:09:01 Test Item Value Reference Range Interpretation Comments Uric Acid (test code Cancel Reason: Ordered = 3084-1) In Error [facility][H] Tumor Necrosis Factor - [id number] 14:09:01 Test Item Value Reference Range Interpretation Comments Tumor Necrosis Factor - Cancel Reason: Ordered Alpha (test code = In Error Tumor Necrosis Factor - Alpha) [facility][H] Interleukin-6, HS by [id number] 14:09:01 Test Item Value Reference Range Interpretation Comments Interleukin-6, HS by Cancel Reason: Ordered MCKENZIE (test code = In Error Interleukin-6, HS by MCKENZIE) [facility][H] VEG [id number] 14:09:01 Test Item Value Reference Range Interpretation Comments VEG Factor (test code Cancel Reason: Ordered = VEG Factor) In Error [facility][H] Interleukin 10 by [id number] 14:09:01 Test Item Value Reference Range Interpretation Comments Qcikzhslpek66 (test Cancel Reason: Ordered code = Tbbwbsvpsbz82) In Error [facility][H] Interleukin 12 by [id number] 14:09:01 Test Item Value Reference Range Interpretation Comments Interleukin 12 (test code Cancel Reason: = Interleukin 12) Ordered In Error [facility]] LACTATE DEHYDROGENASE ISOENZYME PANEL 2017-11-20 14:09:01 Test Item Value Reference Range Interpretation Comments LACTATE DEHYDROGENASE Cancel Reason: ISOENZYME PANEL (test code Ordered In Error = LACTATE DEHYDROGENASE ISOENZYME PANEL) [facility][U] XRAY FEMUR 2 VWS RIGHT [id number] 11:01:00 Test Item Value Reference Range Interpretation [...] site. 11/09/2017 11:52 AM CDT Franko Grande [facility]
[2021-08-09] MEDS ORDERED: METHYLPREDNISOLONE 125 MG INJ ONE (15:17)
[2021-08-09] MEDS ORDERED: LEVALBUTEROL 1.25 MG/3 ML NEB ONE ×2 (15:17→15:20)
[2021-08-09 15:26] LABS: Absolute Lymphocytes (CBC) 0.6 K/uL (0.7-4.9); Basophils % 1.6 % (0-1.3); Hematocrit 21.1 % (39.6-49.0); Lymphocytes % 9.8 % (15.3-44.8); MPV 8.4 fL (7.6-11.3); Protime INR 1.27; RBC Red Blood Cell Count 2.81 M/uL (4.33-5.43)
--- NOTE | 2021-08-09 15:28 | RAD REPORT ---
EXAM DESCRIPTION: RAD - Chest Single View - 08/09/2021 3:15 pm CLINICAL HISTORY: SOB Chest pain. COMPARISON: No comparisons FINDINGS: Portable technique limits examination quality. Right lung is grossly clear. Heart is upper limit normal in size. Left lung volume loss with increase d opacification of the left hemithorax suggest lobar atelectasis/collapse. This can often caused by a hilar mass lesion. Recommend CT chest for followup assessment.
[2021-08-09 15:45] LABS: ALT/SGPT 22 U/L (12-78); AST/SGOT 18 U/L (15-37); Albumin 1.6 g/dL (3.4-5.0); Alkaline Phosphatase 188 U/L (45-117); BUN Blood Urea Nitrogen 56 mg/dL (7-18); Bicarbonate 18 mmol/L (21-32); Bilirubin Direct < 0.1 mg/dL (0-0.2); Bilirubin Total 0.2 mg/dL (0.2-1.0); Glucose Level 248 mg/dL (74-106); Magnesium 1.8 mg/dL (1.8-2.4); NT PRO-BNP 4822 pg/mL (<125); Potassium 5.5 mmol/L (3.5-5.1); Protein, Total 7.6 g/dL (6.4-8.2); Sodium Level 140 mmol/L (136-145); Troponin (Emerg Dept Use Only) < 0.02 ng/mL (0.0-0.045)
--- NOTE | 2021-08-09 16:28 | RAD REPORT ---
EXAM DESCRIPTION: CT - Thorax Wo Con CLINICAL HISTORY: Chest pain SOB COMPARISON: No comparisons FINDINGS: Examination is limited by lack of IV contrast. Soft tissue mass lesion is identified in the left hilar location measuring 4.5 x 4.0 cm with signific ant left upper lobe atelectasis. Exact measurements of the mass is somewhat challenging due to the ad jacent atelectasis/ collapse of the left upper lobe. Several additional small pulmonary nodules are present bilaterally. Bulky adenopathy is seen in the mediastinum, largest in the sub- carinal location measuring 5.7 x 2.6 cm. Small right and small to moderate left pleural effusion is seen. 4.3 cm mass is present right adrenal gland. Several enlarged lymph nodes are seen at the root of the small bowel mesentery, largest measuring 2.6 cm. Additional enlarged lymph nodes in the gastrohepatic ligament, largest measuring 3 cm. Soft tissue mass is present anterior to the stomach measuring 3.0 cm. Small nonspecific area of sclerosis is noted midthoracic vertebral body measuring [address] scans are performed using dose optimization technique as appropriate and may include automated exposure control or mA/KV adjustment according to patient size. IMPRESSION: Left hilar malignancy is noted with significant adenopathy in the chest and upper abdome n detected. Collapse of the left upper lobe is present with bilateral pleural effusions identified. Several small bilateral pulmonary nodules are also seen, likely metastatic. High probability right adrenal metastasis. Nonspecific sclerotic lesion midthoracic vertebral body measuring 10 mm. Nuclear medicine bone scan f olrajendraup would be advised.
[2021-08-09] MEDS ORDERED: INSULIN -REGULAR HUMAN 50 UNIT/0.5 ML ML ONE (17:30)
[2021-08-09] MEDS ORDERED: SOD POLYSTYREN SUL 15 GM/60 ML UCUP ONE ×2 (17:30→17:31)
[2021-08-09] MEDS ORDERED: NA CHLORIDE 0.9% 250 ML ONE (18:51)
[2021-08-09] MEDS ORDERED: DIPHENHYDRAMINE 50 MG/ML VIAL ONE (18:58)
[2021-08-09] MEDS ORDERED: ACETAMINOPHEN 325 MG TABLET ONE (18:58)
--- NOTE | 2021-08-09 22:05 | EDPHYS ---
Physician Documentation [facility] Name: Jan Magana Age: 55 yrs Sex: Male : 1965 Arrival Date: 08/09/2021 Time: 13:41 Bed 8 Private MD: ED Physician Matthias Mishra HPI: 08/09 14:46 This 55 yrs old Male presents to ER via Wheelchair with complaints of Vomiting, jmm Wheezing > 1 Year, Cough. 14:46 The patient presents to the emergency department with nausea, vomiting. Onset: The jmm symptoms/episode began/occurred acutely. 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 Patient denies abdominal pain. Denies dark stools.. 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 - Social history:: Smoking status: Patient denies any tobacco usage or history of. Patient/guardian denies using. ROS: 14:46 Constitutional: Negative for fever, chills, and weight loss, Cardiovascular: Negative jmm for chest pain, palpitations, and edema. 14:46 Respiratory: Positive for cough, hemoptysis. 14:46 Abdomen/GI: Positive for vomiting. 14:46 All other systems are negative. Exam: 14:46 Constitutional: This is a well developed, well nourished patient who is awake, alert, jmm and in no acute distress. Head/Face: atraumatic. Eyes: EOMI, no conjunctival erythema appreciated ENT: Moist Mucus Membranes Neck: Trachea midline, Supple Chest/axilla: Normal chest wall appearance and motion. Cardiovascular: Regular rate and rhythm. No edema appreciated Respiratory: Normal respirations, no respiratory distress appreciated 14:46 Skin: General appearance color normal MS/ Extremity: Moves all extremities, no obvious deformities appreciated, no edema noted to the lower extremities Neuro: Awake and alert, normal gait Psych: Behavior is normal, Mood is normal, Patient is cooperative and pleasant 14:46 Abdomen/GI: Inspection: abdomen appears normal, Bowel sounds: normal, Palpation: abdomen is soft and non-tender, in all quadrants, Rectal exam: Stool: brown, guaiac negative. Vital Signs: 14:06 BP 139 / 69; Pulse 79; Resp 20; Temp 97.6; Pulse Ox 97% ; Weight 102.51 kg; Height 5 jh6 ft. 11 in. (180.34 cm); Pain 5/10; 15:15 BP 149 / 75; Pulse 79; Resp 20; Pulse Ox 99% ; jl7 16:36 BP 160 / 78; Pulse 80; Resp 19; Pulse Ox 98% ; jl7 17:00 BP 144 / 71; Pulse 79; Resp 23; Pulse Ox 97% on R/A; ll3 17:45 BP 150 / 72; Pulse 81; Resp 20; Pulse Ox 96% on R/A; ll3 18:30 BP 152 / 82; Pulse 78; Resp 20; Pulse Ox 96% on R/A; ll3 19:33 BP 147 / 69; Pulse 83; Resp 23 S; Temp 98.0(O); Pulse Ox 97% on R/A; as6 20:33 tw5 21:33 BP 143 / 72; Pulse 82; Resp 14 S; Temp 97.9(O); Pulse Ox 97% on R/A; as6 22:11 BP 143 / 72; Pulse 81; Resp 18; Temp 97.7; Pulse Ox 97% on R/A; tw5 14:06 Body Mass Index 31.52 (102.51 kg, 180.34 cm) jh6 20:33 SEE TRANSFUSION RECORD FOR VITALS tw5 MDM: 14:46 Patient medically screened. [facility] 17:50 Data reviewed: vital signs, nurses notes. Transition of care: After a detail discussion donnie of the patient's case, care is transferred to Aroldo VILLA. ED course: MD To was contacted for transfer for continuity of care and possible intervention necessary for hemoptysis. Patient is currently alert nontoxic in appearance. Hemodynamic stable. Will receive 2 units of blood while in the ER.. 22:03 Data reviewed: lab test result(s), radiologic studies. Data interpreted: Pulse jr8 oximetry: on room air is 97 %. Interpretation: normal. Counseling: I had a detailed discussion with the patient and/or guardian regarding: the historical points, exam findings, and any diagnostic results supporting the discharge/admit diagnosis, lab results, radiology results, the need for outpatient follow up, Oncologist, to return to the emergency department if symptoms worsen or persist or if there are any questions or concerns that arise at home. ED course: Patient did well with both units of blood. Feeling better overall. Does not want to be transferred to [facility] at this time or continue to try at other facilities as [facility] currently is at saturation. Knows he will come back if he gets worse but otherwise will attempt to go to [facility] in the morning for further evaluation.. 22:05 ED course: It was noted that patient had mild hyperkalemia due to his renal function as jr8 well. Patient denied Kayexalate insulin at this time for his hyperkalemia.. 08/09 14:50 Order name: Basic Metabolic Panel; Complete Time: 15:57 [facility] 08/09 14:50 Order name: CBC with Diff; Complete Time: 15:41 [facility] 08/09 14:50 Order name: LFT's; Complete Time: 15:57 [facility] 08/09 14:50 Order name: Magnesium; Complete Time: 15:57 [facility] 08/09 14:50 Order name: NT PRO-BNP; Complete Time: 15:57 [facility] 08/09 14:50 Order name: PT-INR; Complete Time: 15:41 [facility] 08/09 14:50 Order name: Troponin (emerg Dept Use Only); Complete Time: 15:57 [facility] 08/09 14:50 Order name: SARS-COV-2 RT PCR (Document "Date of Onset" if Symptomatic); Complete Time: [facility] 16:43 08/09 16:35 Order name: Occult Blood--Ancillary; Complete Time: 16:52 08/09 16:37 Order name: PRBC [facility] 08/09 16:38 Order name: ABO/RH typing [facility] 08/09 16:38 Order name: Antibody Screen [facility] 08/09 16:54 Order name: Bb Add On 08/09 14:50 Order name: XRAY Chest (1 view); Complete Time: 15:41 [facility] 08/09 14:50 Order name: EKG; Complete Time: 14:51 [facility] 08/09 14:50 Order name: Cardiac monitoring; Complete Time: 15:08 [facility] 08/09 14:50 Order name: EKG - Nurse/Tech; Complete Time: 15:02 [facility] 08/09 14:50 Order name: IV Saline Lock; Complete Time: 15:08 [facility] 08/09 14:50 Order name: Labs collected and sent; Complete Time: 15:08 [facility] 08/09 14:50 Order name: O2 Per Protocol; Complete Time: 15:08 [facility] 08/09 14:50 Order name: O2 Sat Monitoring; Complete Time: 15:08 [facility] 08/09 15:51 Order name: Thorax Wo Con; Complete Time: 16:35 EDMS Administered Medications: 15:42 Drug: Xopenex (levalbuterol) (3) 1.25 mg Route: Inhalation; ll3 17:47 Follow up: Response: No adverse reaction ll3 15:42 Drug: SOLU-Medrol (methylPrednisoLONE) 125 mg Route: IVP; Site: right antecubital; ll3 17:47 Follow up: Response: No adverse reaction ll3 17:40 Not Given (Patient Refused): Insulin Regular Human 10 units IVP once ll3 17:40 Not Given (Patient Refused): Kayexalate (polystyrene) 60 grams PO once ll3 19:20 Drug: Tylenol 650 mg Route: PO; as6 21:59 Follow up: Response: No adverse reaction tw5 19:20 Drug: Benadryl (diphenhydrAMINE) 25 mg Route: IVP; Site: right antecubital; as6 21:59 Follow up: Response: No adverse reaction tw5 Disposition: 08/10 07:08 Co-signature as Attending Physician, Matthias Mishra MD I agree with the assessment and rn plan of care. Attestation: The patient's history, exam findings, diagnostics, and a summary of any interventions or procedures was reviewed in detail with Aroldo VILLA. Disposition Summary: 08/09/21 22:05 Discharge [facility]dered [facility] Problem: new jr8 Symptoms: have improved jr8 Condition: Stable jr8 Diagnosis - Anemia, unspecified jr8 - Hemoptysis jr8 Followup: jr8 - With: Private Physician - When: Tomorrow - Reason: Recheck today's complaints, Continuance of care, Re-evaluation by your physician Discharge Instructions: - Discharge Summary Sheet jr8 - Anemia jr8 - Blood Transfusion, Adult jr8 - Hemoptysis jr8 Forms: - Medication Reconciliation Form jr8 - Thank You Letter jr8 - Antibiotic Education jr8 - Prescription Opioid Use jr8 Signatures: Dispatcher [employer] EDMS Fidencio Ramirez PA PA jmm Nieto, Roman, MD MD rn Roszak, Josh, PA PA jr8 Vanessa العراقي RN RN jl7 Ken Baker RN RN as6 Ana Rosa Bermudez RN RN 3 Rhianna Dvais RN RN jh6 Kandace Roque 5 Corrections: (The following items were deleted from the chart) 08/09 14:12 14:12 PMHx: Diabetes - NIDDM; [place] [address] 14:12 14:12 PMHx: Hypertension; [place] [address] 14:12 14:12 PMHx: kidney cancer; [place] [address] 14:56 14:12 Allergies: Codeine [Inactive]; [place] [id number] 14:56 14:54 Allergies: No Known Allergies; [place] [address] 15:51 14:51 Chest For PE Angio+CT.RAD.BRZ ordered. EDMS EDMS 17:04 15:43 TYPE AND SCREEN+BB.LAB.BRZ ordered. EDMS EDMS
--- NOTE | 2021-08-09 22:05 | ER ---
Nurse's Notes 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 6 stated this am that he started coughing and noted bright blood. reports size of a quarter but had 12 episodes with blood on tissue. pt states MD To is handling ca treatment. Ebola Screen: No symptoms or risks identified at this time. Initial Sepsis Screen: Does the patient meet any 2 criteria? No. Patient's initial sepsis screen is negative. Does the patient have a suspected source of infection? No. Patient's initial sepsis screen is negative. Risk Assessment: Do you want to hurt yourself or someone else? Patient reports no desire to harm self or others. Onset of symptoms was August 08, 2021. 14:06 Method Of Arrival: Ambulatory [facility] 14:06 Acuity: NOAM 2 [facility] 14:56 Coronavirus screen: Vaccine status: Patient reports receiving the 2nd dose of the covid jl7 vaccine. Pfizer cough unrelated to allergies, Client presents with at least one sign or symptom that may indicate coronavirus-19. Standard/surgical mask placed on the client. Provider contacted for isolation considerations. 14:56 Method Of Arrival: Wheelchair [facility] Triage Assessment: 14:12 General: Appears comfortable, ill, obese, Behavior is cooperative. Respiratory: Airway [facility] is patent Trachea midline Respiratory effort is even, unlabored, Respiratory pattern is regular, symmetrical, Sputum is thick, Breath sounds are diminished in left upper lobe Breath sounds with wheezes in right upper lobe. 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 - Social history:: Smoking status: Patient denies any tobacco usage or history of. Patient/guardian denies using. Screenin:46 Abuse screen: Denies threats or abuse. Nutritional screening: No deficits noted. ll3 Tuberculosis screening: No symptoms or risk factors identified. Fall Risk IV access (20 points). Ambulatory Aid- None/Bed Rest/Nurse Assist (0 pts). Gait- Normal/Bed Rest/Wheelchair (0 pts) Mental Status- Oriented to own ability (0 pts). Total Smith Fall Scale indicates No Risk (0-24 pts). Assessment: 14:45 General: Appears in no apparent distress. uncomfortable, Behavior is calm, cooperative. ll3 Pain: Complains of pain in right lateral anterior chest and left lateral anterior chest Pain currently is 5 out of 10 on a pain scale. Pain began 1 day ago. Neuro: Level of Consciousness is awake, alert, obeys commands, Oriented to person, place, time, situation. Cardiovascular: Patient's skin is warm and dry. Respiratory: Airway is patent Respiratory effort is even, unlabored, Respiratory pattern is regular, symmetrical, Breath sounds with wheezes bilaterally. Onset: The symptoms/episode began/occurred this morning, Parent/caregiver reports the patient having shortness of breath cough that is labored breathing pain with cough. GI: Abdomen is round non-distended, obese. 16:00 Reassessment: Patient appears in no apparent distress at this time. No changes from ll3 previously documented assessment. Patient and/or family updated on plan of care and expected duration. Pain level reassessed. Patient is alert, oriented x 3, equal unlabored respirations, skin warm/dry/pink. 17:00 Reassessment: Pt c/o increased swelling to left forearm, ERP notified, no new orders ll3 received at this time. 17:40 Reassessment: Pt refused Kayexelate, pt refused, insulin, ERP notified, no new orders ll3 received at this time. 19:33 General: Appears in no apparent distress. comfortable. Neuro: Reports weakness. as6 19:34 Reassessment: blood transfusion being provided, see paper charting. as6 19:39 Cardiovascular: Edema to BUE and BLE. as6 20:33 Reassessment: Patient appears in no apparent distress at this time. No changes from tw5 previously documented assessment. Patient and/or family updated on plan of care and expected duration. Pain level reassessed. Patient denies pain at this time. General: Appears Behavior is calm, cooperative. 21:35 Reassessment: Patient and/or family updated on plan of care and expected duration. Pain as6 level reassessed. Patient is alert, oriented x 3, equal unlabored respirations, skin warm/dry/pink. 22:04 Reassessment: Patient states feeling better. " I am ready to go home.". tw5 22:19 General: Aroldo VILLA stated that if patient is feeling better and wants to go home he is tw5 okay with him going home before without the second unit. Patient stated when given the option of staying for the second unit or going home " I think I just want to go home, I can always come back if I am feeling bad again" Nursing staff relayed message to provider.. Vital Signs: 14:06 BP 139 / 69; Pulse 79; Resp 20; Temp 97.6; Pulse Ox 97% ; Weight 102.51 kg; Height 5 jh6 ft. 11 in. (180.34 cm); Pain 5/10; 15:15 BP 149 / 75; Pulse 79; Resp 20; Pulse Ox 99% ; jl7 16:36 BP 160 / 78; Pulse 80; Resp 19; Pulse Ox 98% ; jl7 17:00 BP 144 / 71; Pulse 79; Resp 23; Pulse Ox 97% on R/A; ll3 17:45 BP 150 / 72; Pulse 81; Resp 20; Pulse Ox 96% on R/A; ll3 18:30 BP 152 / 82; Pulse 78; Resp 20; Pulse Ox 96% on R/A; ll3 19:33 BP 147 / 69; Pulse 83; Resp 23 S; Temp 98.0(O); Pulse Ox 97% on R/A; as6 20:33 tw5 21:33 BP 143 / 72; Pulse 82; Resp 14 S; Temp 97.9(O); Pulse Ox 97% on R/A; as6 22:11 BP 143 / 72; Pulse 81; Resp 18; Temp 97.7; Pulse Ox 97% on R/A; tw5 14:06 Body Mass Index 31.52 (102.51 kg, 180.34 cm) jh6 20:33 SEE TRANSFUSION RECORD FOR VITALS tw5 ED Course: 13:41 Patient arrived in ED. as 14:12 Triage completed. jh6 14:13 Arm band placed on left wrist. jh6 14:45 Fidencio Ramirez PA is PHCP. [facility] 14:45 Matthias Mishra MD is Attending Physician. [facility] 14:49 Jazzy Regalado, RN is Primary Nurse. mk 15:08 Initial lab(s) drawn, by ED staff, sent to lab. EKG done, by ED staff, reviewed by Fidencio VILLA. 15:08 COVID swab sent to lab. Inserted saline lock: 20 gauge in right antecubital area, using jl7 aseptic technique. Blood collected. 15:15 XRAY Chest (1 view) In Process Unspecified. EDMS 15:17 Ana Rosa Bermudez, RN is Primary Nurse. jl7 15:46 Patient has correct armband on for positive identification. Placed in gown. Bed in low ll3 position. Call light in reach. Side rails up X 1. monitor technician on. Pulse ox on. NIBP on. 16:08 Thorax Wo Con In Process Unspecified. EDMS 16:47 initiated transfer to [facility]. bd 16:55 T\\T\\S collected, blood band applied to patient. jl7 17:59 pt denied at [facility] due to no capacity, er and floor saturated, per Roseann. bd 18:24 PHCP role handed off by Fidencio Ramirez PA jr8 18:24 Aroldo Phillip PA is PHCP. jr8 19:12 Primary Nurse role handed off by Ana Rosa Bermudez, DOMINGA tw5 19:12 Kandace Roque is Primary Nurse. tw5 20:22 Bb Add On Sent. tw5 22:04 No provider procedures requiring assistance completed. tw5 22:11 Door closed. tw5 22:11 IV discontinued, intact, bleeding controlled, No redness/swelling at site. Pressure tw5 dressing applied. Administered Medications: 15:42 Drug: Xopenex (levalbuterol) (3) 1.25 mg Route: Inhalation; ll3 17:47 Follow up: Response: No adverse reaction ll3 15:42 Drug: SOLU-Medrol (methylPrednisoLONE) 125 mg Route: IVP; Site: right antecubital; ll3 17:47 Follow up: Response: No adverse reaction ll3 17:40 Not Given (Patient Refused): Insulin Regular Human 10 units IVP once ll3 17:40 Not Given (Patient Refused): Kayexalate (polystyrene) 60 grams PO once ll3 19:20 Drug: Tylenol 650 mg Route: PO; as6 21:59 Follow up: Response: No adverse reaction tw5 19:20 Drug: Benadryl (diphenhydrAMINE) 25 mg Route: IVP; Site: right antecubital; as6 21:59 Follow up: Response: No adverse reaction tw5 Outcome: 22:05 Discharge ordered by MD. dejesus 22:12 Discharged to home ambulatory, with family. tw5 22:12 Condition: improved 22:12 Discharge instructions given to patient, family, Instructed on discharge instructions, follow up and referral plans. Demonstrated understanding of instructions. 22:12 Patient left the ED. tw5 Signatures: Dispatcher [employer] EDMS Ilda Nance Joel, PA PA jmm Martinez, Amelia as Roszak, Josh, PA PA jr8 Leal, Jahala, RN RN jl7 Kandace Roque tw5 Ken Baker RN RN as6 Ana Rosa Bermudez RN RN 3 Rhianna Davis RN RN 6 Jazzy Regalado RN RN Corrections: (The following items were deleted from the chart) 14:12 14:12 PMHx: Diabetes - NIDDM; [place] [id number] 14:12 14:12 PMHx: Hypertension; [place] [address] 14:12 14:12 PMHx: kidney cancer; [place] [address] 14:50 14:06 Coronavirus screen: Vaccine status: Patient reports receiving the 2nd dose of the covid vaccine. [facility] 14:56 14:12 Allergies: Codeine [Inactive]; [place] [address] 14:56 14:54 Allergies: No Known Allergies; [place] [address] 15:44 15:42 General: Appears in no apparent distress. uncomfortable, Behavior is calm, ll3 cooperative, ll3 15:46 15:42 Pain: Complains of pain in right lateral anterior chest and left lateral anterior ll3 chest Pain currently is 5 out of 10 on a pain scale. Pain began 1 day ago. ll3 15:46 15:42 Neuro: Level of Consciousness is awake, alert, obeys commands, Oriented to ll3 person, place, time, situation, ll3 15:46 15:42 Cardiovascular: Patient's skin is warm and dry. ll3 ll3 15:42 Respiratory: Airway is patent Respiratory effort is even, unlabored, Respiratory ll3 pattern is regular, symmetrical, Breath sounds with wheezes bilaterally. Onset: The symptoms/episode began/occurred this morning, Parent/caregiver reports the patient having shortness of breath cough that is labored breathing pain with cough ll3 15:42 GI: Abdomen is round non-distended, obese, ll3 ll3 15:42 General: Appears in no apparent distress. uncomfortable, Behavior is calm, ll3 cooperative, ll3
[2021-08-09 23:20] VITALS: O2SAT 97
[2021-08-09 23:21] VITALS: BP 143/72
[2021-08-09 23:23] VITALS: TEMP 97.7
--- NOTE | 2021-08-10 07:50 | EKG ---
Test Date: 2021-08-09 Test Time: 14:58:36 Security Delivery Specialist: LL MEASUREMENT RESULTS: Intervals: Rate: 79 W[place]: 188 QRSD: 98 QT: 394 QTc: 451 [place]: P: 42 [place]: 188 QRS: 16 T: 74 INTERPRETIVE STATEMENTS: Normal sinus rhythm Possible Anterior infarct, age undetermined Abnormal ECG No previous ECG available for comparison Electronically Signed On 08-10-21 07:48:08 HIGH SCALER by Avila Oliva
== END 2021-08-09 22:12 | disposition home or self-care (01) ==
LOC: ER 13:36
PROC: 30233N1 Transfusion of Nonautologous Red Blood Cells into Peripheral Vein, Percutaneous Approach (ICD-10-PCS; principal; 2021-08-09)
DX: D64.9 Anemia, unspecified (principal); I10 Essential (primary) hypertension; E11.9 Type 2 diabetes mellitus without complications; Z20.822 Contact with and (suspected) exposure to COVID-19; Z88.5 Allergy status to narcotic agent
CPT/HCPCS: 93005; 85025; 80048; 36415; 86900; 83735; 86850; 85610; 86901; 80076; 82272; 84484; 83880; 71250; 71045; 96375; 96374; 99285; 36430; U0003; J1200; P9016; J7050; J2930